=== PATIENT | male | born 1930 | race Caucasian/White ===

== ENCOUNTER 2017-05-10 10:53 | Inpatient (IN) | payer MEDICARE, OTHER ==
[2017-05-10] MEDS ORDERED: Sodium Chloride 0.9% 10 ML Syringe FLUSH PRN (11:10)
[2017-05-10] MEDS ORDERED: methylPREDNISolone Sodium Succinate 125 MG/2 ML SDV IVPUSH ONE (11:11)
[2017-05-10] MEDS ORDERED: Albuterol/Ipratropium 3.0-0.5 MG/3 ML Neb Soln NEB ONE (11:11)
[2017-05-10] MEDS ORDERED: Levofloxacin/Dextrose 5%-Water 750 MG in Premix Bag 1 BAG IV ONE (13:01)
--- NOTE | 2017-05-10 13:02 | EDM.PDOC ---
ED HPI GENERAL MEDICAL PROBLEM - General Chief Complaint: Respiratory Problem Stated Complaint: COUGH/LOW OXYGEN Time Seen by Provider: 05/10/17 11:03 Source of Information: Reports: Patient, Family History Limitations: Reports: No Limitations - History of Present Illness INITIAL COMMENTS - FREE TEXT/NARRATIVE: The patient presents with a productive cough and shortness of breath. This has been going on for about 1 week. He has a history of pneumonia with abscess in the left lung over 1 year ago. He sees a mechanical engineer after that. He had a chest CT last week and his mechanical engineer said it looks better then a week ago. He denies a fever but he has a productive cough. He has shortness of breath and when we brought him back his oxygen saturations were 68% on room air. He has COPD and CHF. There has not been any changes to his medications after seeing his mechanical engineer. He wears oxygen 2L by [place] at night. He denies chest pain. He has no abdominal pain, nausea and vomiting. Onset: Gradual Duration: Week(s): (1) Severity: Moderate Improves with: Reports: None Worsens with: Reports: None Associated Symptoms: Reports: Cough, Shortness of Breath. Denies: Chest Pain, Fever/Chills, Nausea/Vomiting - Related Data Allergies Allergy/AdvReac Type Severity Reaction Status Date / Time hydromorphone [From Dilaudid] Allergy Rash Verified 05/10/17 16:45 Penicillins Allergy Rash Verified 05/10/17 16:45 IV dye Allergy Hives Uncoded 05/10/17 11:23 Home Meds: Home Meds Aspirin [Children's Aspirin] 81 mg PO DAILY 04/28/14 [History] Losartan [Cozaar] 25 mg PO DAILY 04/28/14 [History] Metoprolol Succinate [Toprol XL] 50 mg PO DAILY 04/28/14 [History] Multivitamin [Multi Vitamin Daily] 1 tab PO DAILY 04/28/14 [History] [place]-3 Fatty Acids [[place]-3] 1,000 mg PO DAILY 04/28/14 [History] Simvastatin [Zocor] 40 mg PO BEDTIME 04/28/14 [History] SitaGLIPtin [Januvia] 100 mg PO DAILY 04/28/14 [History] metFORMIN HCl [Fortamet] 1,000 mg PO BID 11/10/14 [History] Acetaminophen [Tylenol] 500 mg PO DAILY PRN 06/10/14 [History] Albuterol [Proventil Neb Soln] 2.5 mg NEB ASDIRECTED PRN 05/10/17 [History] Brimonidine [Alphagan P 0.15% Ophth Soln] 1 drop EYEBOTH BID 05/10/17 [History] Carboxymethylcellulos/Glycerin [Eq Lubricating Eye Drops] 1 drop EYEBOTH BID [History] Fluticasone/Salmeterol [Advair 250-50 Diskus] 1 puff INH BID 05/10/17 [History] Nitroglycerin [Nitrostat] 0.4 mg SL Q5M PRN 05/10/17 [History] Tiotropium [Spiriva Handihaler] 1 cap INH DAILY 05/10/17 [History] glipiZIDE [Glucotrol] 10 mg PO DAILY 05/10/17 [History] Past Medical History Cardiovascular History: Reports: CAD, Heart Failure, High Cholesterol, Hypertension, SOB on Exertion, Stents, Other (See Below) Other Cardiovascular History: cardiomegaly Respiratory History: Reports: Bronchitis, Recurrent, COPD, Pneumonia, Recurrent , SOB Endocrine/Metabolic History: Reports: Diabetes, Type II - Past Surgical History Cardiovascular Surgical History: Reports: Coronary Artery Bypass Social & Family History - Tobacco Use Smoking Status *Q: Current Every Day Smoker Years of Tobacco use: 65 Packs/Tins Daily: 0.1 - Alcohol Use Days Per Week of Alcohol Use: 0 - Recreational Drug Use Recreational Drug Use: No ED ROS GENERAL - Review of Systems Review Of Systems: See Below Constitutional: Reports: No Symptoms HEENT: Reports: No Symptoms Respiratory: Reports: Shortness of Breath, Cough Cardiovascular: Reports: No Symptoms Endocrine: Reports: No Symptoms GI/Abdominal: Reports: No Symptoms : Reports: No Symptoms Musculoskeletal: Reports: No Symptoms ED EXAM, GENERAL - Physical Exam Exam: See Below Exam Limited By: No Limitations General Appearance: Alert, No Apparent Distress Ears: Normal External Exam Nose: Normal Inspection Head: Atraumatic, Normocephalic Neck: Normal Inspection Respiratory/Chest: No Respiratory Distress, Decreased Breath Sounds, Rhonchi ( Left lower lung), Wheezing Cardiovascular: Regular Rate, Rhythm, No Edema, No Murmur GI/Abdominal: Soft, Non-Tender, No Organomegaly, No Mass Back Exam: Normal Inspection Extremities: Normal Inspection Course - Vital Signs Last Recorded V/S: Last Vital Signs Temp 98.1 F 05/10/17 15:24 Pulse 95 05/10/17 15:24 Resp 24 H 05/10/17 15:24 BP 117/62 05/10/17 15:24 Pulse Ox 92 L 05/10/17 15:24 - Orders/Labs/Meds Orders: Active Orders 24 hr Category Date Time Status RT Aerosol Therapy [RC] ASDIRECTED Care 05/10/17 11:11 Active Chest 1V Frontal [CR] Stat Exams 05/10/17 11:10 Taken CULTURE BLOOD [BC] Stat Lab 05/10/17 11:44 Received CULTURE BLOOD [BC] Stat Lab 05/10/17 11:55 Received Sodium Chloride 0.9% [Saline Flush] Med 05/10/17 11:10 Active 10 ml FLUSH ASDIRECTED PRN Blood Culture x2 Reflex Set [OM.PC] Stat Oth 05/10/17 11:11 Ordered Peripheral IV Insertion Adult [OM.PC] Stat Oth 05/10/17 11:10 Ordered Medication Orders Albuterol (Proventil Neb Soln) 2.5 mg NEB Q4H PRN PRN Reason: Shortness of Breath Albuterol/Ipratropium (Duoneb 3.0-0.5 Mg/3 Ml) 3 ml NEB QID PRN PRN Reason: Shortness of Breath Artificial Tears (Isopto Tears 0.5% Ophth Soln) 0 ml EYEBOTH BID MARGOT Aspirin (Aspirin) 81 mg PO DAILY [facility]ARGOT Dextrose/Water (Dextrose 50% In Water) 50 ml IVPUSH ASDIRECTED PRN PRN Reason: Hypoglycemia Fish Oil (Fish Oil) 1 gm PO DAILY MARGOT Levofloxacin/Dextrose 750 mg/ (Premix) 150 mls @ 100 mls/hr IV Q48H [facility]ARGOT Sodium Chloride (Sodium Chloride 0.45%) 1,000 mls @ 75 mls/hr IV ASDIRECTED MARGOT Insulin Aspart (Novolog) 0 unit SUBCUT QIDACANDBED MARGOT PRN Reason: Protocol Insulin Aspart (Novolog) 0 unit SUBCUT QIDACANDBED MARGOT PRN Reason: Protocol Methylprednisolone Sodium Succinate (Solu-Medrol) 125 mg IVPUSH Q6H [facility]ARGOT Metoprolol Succinate (Toprol Xl) 50 mg PO DAILY [facility] Mometasone Furoate/Formoterol Fumar (Dulera 200-5 Mcg) 2 puff IH BID [facility] Multivitamins (Thera) 1 each PO DAILY [facility] Nicotine (Habitrol) 21 mg TRDERM DAILY [facility] Nitroglycerin (Nitrostat) 0.4 mg SL Q5M PRN PRN Reason: Chest Pain Non-Formulary Medication (Brimonidine) 1 drop EYEBOTH BID [facility] Simvastatin (Zocor) 40 mg PO BEDTIME [facility] Sodium Chloride (Saline Flush) 10 ml FLUSH ASDIRECTED PRN PRN Reason: Keep Vein Open Last Admin: 05/10/17 11:35 Dose: 10 ml Tiotropium [place] (Spiriva Handihaler) 18 mcg INH DAILY [facility] Labs: Laboratory Tests 05/10/17 05/10/17 Range/Units 11:05 11:05 WBC 13.08 H (4.23-9.07) K/mm3 RBC 4.05 L (4.63-6.08) M/mm3 Hgb 12.7 L (13.7-17.5) gm/L Hct 39.6 L (40.1-51.0) % MCV 97.8 H (79.0-92.2) fl MCH 31.4 (25.7-32.2) pg MCHC 32.1 L (32.2-35.5) g/dl RDW Std Deviation 50.9 H (35.1-43.9) fL Plt Count 237 (163-337) K/mm3 MPV 10.6 (9.4-12.3) fl Neut % (Auto) 73.7 H (34.0-67.9) % Lymph % (Auto) 13.4 L (21.8-53.1) % [place] % (Auto) 12.2 (5.3-12.2) % Eos % (Auto) 0.2 L (0.8-7.0) Baso % (Auto) 0.3 (0.1-1.2) % Neut # (Auto) 9.63 H (1.78-5.38) K/mm3 Lymph # (Auto) 1.75 (1.32-3.57) K/mm3 [place] # (Auto) 1.60 H (0.30-0.82) K/mm3 Eos # (Auto) 0.03 L (0.04-0.54) K/mm3 Baso # (Auto) 0.04 (0.01-0.08) K/mm3 Manual Slide Review Normal smear Sodium 137 (136-145) mEq/L Potassium 4.2 (3.5-5.1) mEq/L Chloride 99 (98-107) mEq/L Carbon Dioxide 27 (21-32) mEq/L Anion Gap 15.2 H (5-15) BUN 20 H (7-18) mg/dL Creatinine 1.4 H (0.7-1.3) mg/dL Est Cr Clr Drug Dosing 37.32 mL/min Estimated GFR (MDRD) 48 (>60) mL/min BUN/Creatinine Ratio 14.3 (14-18) Glucose 236 H (83-115) mg/dL Calcium 9.4 (8.5-10.1) mg/dL Total Bilirubin 0.6 (0.2-1.0) mg/dL AST 37 (15-37) U/L ALT 49 (16-63) U/L Alkaline Phosphatase 325 H (46-116) U/L Troponin I < 0.017 (0.00-0.056) ng/mL NT-Pro-B Natriuret Pep Cancelled Total Protein 7.7 (6.4-8.2) g/dl Albumin 2.6 L (3.4-5.0) g/dl Globulin 5.1 gm/dL Albumin/Globulin Ratio 0.5 L (1-2) Meds: Medications Generic Name Dose Route Start Last Admin Trade Name Freq PRN Reason Stop Dose Admin Albuterol 2.5 mg 05/10/17 16:06 Proventil Neb Soln NEB Q4H PRN Shortness of Breath Albuterol/Ipratropium 3 ml 05/10/17 16:05 Duoneb 3.0-0.5 Mg/3 Ml NEB QID PRN Shortness of Breath Artificial Tears 0 ml 05/10/17 21:00 Isopto Tears 0.5% Ophth Soln EYEBOTH BID MARGOT Aspirin 81 mg 05/11/17 09:00 Aspirin PO DAILY [facility] Dextrose/Water 50 ml 05/10/17 16:17 Dextrose 50% In Water IVPUSH ASDIRECTED PRN Hypoglycemia Fish Oil 1 gm 05/11/17 09:00 Fish Oil PO DAILY [facility] Levofloxacin/Dextrose 750 mg/ 150 mls @ 100 mls/hr 05/12/17 09:00 Premix IV Q48H [facility] Sodium Chloride 1,000 mls @ 75 mls/hr 05/10/17 16:15 Sodium Chloride 0.45% IV ASDIRECTED [facility] Insulin Aspart 0 unit 05/10/17 17:00 Novolog SUBCUT QIDACANDBED [facility] Protocol Insulin Aspart 0 unit 05/10/17 17:05 Novolog SUBCUT QIDACANDBED [facility] Protocol Methylprednisolone Sodium Succinate 125 mg 05/10/17 19:00 Solu-Medrol IVPUSH Q6H [facility] Metoprolol Succinate 50 mg 05/11/17 09:00 Toprol Xl PO DAILY [facility] Mometasone Furoate/Formoterol Fumar 2 puff 05/10/17 21:00 Dulera 200-5 Mcg IH BID [facility] Multivitamins 1 each 05/11/17 09:00 Thera PO DAILY [facility] Nicotine 21 mg 05/10/17 16:15 Habitrol TRDERM DAILY [facility] Nitroglycerin 0.4 mg 05/10/17 15:46 Nitrostat SL Q5M PRN Chest Pain Non-Formulary Medication 1 drop 05/10/17 21:00 Brimonidine EYEBOTH BID [facility] Simvastatin 40 mg 05/10/17 21:00 Zocor PO BEDTIME [facility] Sodium Chloride 10 ml 05/10/17 11:10 05/10/17 11:35 Saline Flush FLUSH 10 ml ASDIRECTED PRN Administration Keep Vein Open Tiotropium [place] 18 mcg 05/11/17 09:00 Spiriva Handihaler INH DAILY [facility] Discontinued Medications Generic Name Dose Route Start Last Admin Trade Name Freq PRN Reason Stop Dose Admin Albuterol/Ipratropium 3 ml 05/10/17 11:11 05/10/17 11:25 Duoneb 3.0-0.5 Mg/3 Ml NEB 05/10/17 11:12 3 ml ONETIME ONE Administration Levofloxacin/Dextrose 750 mg/ 150 mls @ 100 mls/hr 05/10/17 13:01 05/10/17 13 :12 Premix IV 05/10/17 14:30 100 mls/hr ONETIME ONE Administration Methylprednisolone Sodium Succinate 125 mg 05/10/17 11:11 05/10/17 11:33 Solu-Medrol IVPUSH 05/10/17 11:12 125 mg ONETIME ONE Administration Mometasone Furoate/Formoterol Fumar 2 puff 05/10/17 21:00 Dulera 200-5 Mcg IH BIDRT [facility]ARGOT Tiotropium [place] 18 mcg 05/11/17 08:00 Spiriva Handihaler INH DAILYRT [facility] - Re-Assessments/Exams Free Text/Narrative Re-Assessment/Exam: 05/10/17 17:15 I ordered an IV saline lock, oxygen, labs, CXR, EKG, blood cultures, duoneb, and solu-medrol 125mg IV. His WBC was elevated at 13.08. His Hgb was a little low at 12.7. His creatinine was elevated at 1.4. His Alk phos was elevated at 325. His troponin was negative. His CXR shows an infiltrate in the left lower lobe. His EKG shows a sinus tachycardia with no acute changes. I ordered levaquin and blood cultures. I feel he needs to be admitted. I called Dr Wu and she agreed to the admission. Departure - Departure Time of Disposition: 17:20 Disposition: Admitted As Inpatient 67 Condition: Serious Clinical Impression: Hypoxia Pneumonia Qualifiers: Pneumonia type: due to unspecified organism Laterality: left Lung location: lower lobe of lung Qualified Code(s): J18.1 - Lobar pneumonia, unspecified organism - Discharge Information - My Orders Last 24 Hours: My Active Orders 05/10/17 11:10 Chest 1V Frontal [CR] Stat Sodium Chloride 0.9% [Saline Flush] 10 ml FLUSH ASDIRECTED PRN Peripheral IV Insertion Adult [OM.PC] Stat 05/10/17 11:11 RT Aerosol Therapy [RC] ASDIRECTED Blood Culture x2 Reflex Set [OM.PC] Stat 05/10/17 11:44 CULTURE BLOOD [BC] Stat 05/10/17 11:55 CULTURE BLOOD [BC] Stat - Assessment/Plan Last 24 Hours: My Active Orders 05/10/17 11:10 Chest 1V Frontal [CR] Stat Sodium Chloride 0.9% [Saline Flush] 10 ml FLUSH ASDIRECTED PRN Peripheral IV Insertion Adult [OM.PC] Stat 05/10/17 11:11 RT Aerosol Therapy [RC] ASDIRECTED Blood Culture x2 Reflex Set [OM.PC] Stat 05/10/17 11:44 CULTURE BLOOD [BC] Stat 05/10/17 11:55 CULTURE BLOOD [BC] Stat
--- NOTE | 2017-05-10 15:42 | PCM.HP ---
H&P History of Present Illness - General Date of Service: 05/10/17 Admit Problem/Dx: Admission Diagnosis/Problem Admission Diagnosis/Problem Pneumonia Source of Information: Patient, Family, Provider History Limitations: Reports: No Limitations - History of Present Illness Initial Comments - Free Text/Narative: 86 year old male with history of tobacco dependence/COPD has had a productive cough associated with increasing SOB . He has a history of pneumonia complicated by a lung abscess one year [employer]IC[employer]. Documented O2 saturation was 68% in the ED, the oxygen required [employer] only at night. Having recently seen his business development recruiter, no adjustment of meds were required. A CT of the thorax was performed recently ordered by his PCP. This was reviewed at his most recent visit with his business development recruiter. Radiographic studies document a LLE infiltrate. He will be admitted to [facility]. Onset of Symptoms: Reports: Gradual Symptom Onset Date: 05/04/17 Duration of Symptoms: Reports: Week(s):, Getting Worse Location: Reports: Chest Severity: Moderate Improves with: Reports: Medication Worsens with: Reports: None Context: Reports: Sick Contact (unknown) Associated Symptoms: Reports: cough w sputum, Shortness of Breath, Weakness - Related Data Allergies/Adverse Reactions: Allergies Allergy/AdvReac Type Severity Reaction Status Date / Time hydromorphone [From Dilaudid] Allergy Rash Verified 05/10/17 16:45 Penicillins Allergy Rash Verified 05/10/17 16:45 IV dye Allergy Hives Uncoded 05/10/17 11:23 Home Medications: Home Meds Aspirin [Children's Aspirin] 81 mg PO DAILY 04/28/14 [History] Losartan [Cozaar] 25 mg PO DAILY 04/28/14 [History] Metoprolol Succinate [Toprol XL] 50 mg PO DAILY 04/28/14 [History] Multivitamin [Multi Vitamin Daily] 1 tab PO DAILY 04/28/14 [History] [place]-3 Fatty Acids [[place]-3] 1,000 mg PO DAILY 04/28/14 [History] Simvastatin [Zocor] 40 mg PO BEDTIME 04/28/14 [History] SitaGLIPtin [Januvia] 100 mg PO DAILY 04/28/14 [History] metFORMIN HCl [Fortamet] 1,000 mg PO BID 04/28/14 [History] Acetaminophen [Tylenol] 500 mg PO DAILY PRN 06/10/14 [History] Acetaminophen [Tylenol Extra Strength] 500 mg PO Q4HR PRN 05/10/17 [History] Albuterol [IJD: Albuterol HFA] 2 puff INH ASDIRECTED PRN 05/10/17 [History] Albuterol [Proventil Neb Soln] 2.5 mg NEB ASDIRECTED PRN 05/10/17 [History] Brimonidine [Alphagan P 0.15% Ophth Soln] 1 drop EYEBOTH BID 05/10/17 [History] Carboxymethylcellulos/Glycerin [Eq Lubricating Eye Drops] 1 drop EYEBOTH BID [History] Fluticasone/Salmeterol [Advair 250-50 Diskus] 1 puff INH BID 05/10/17 [History] Nitroglycerin [Nitrostat] 0.4 mg SL Q5M PRN 05/10/17 [History] Tiotropium [Spiriva Handihaler] 1 cap INH DAILY 05/10/17 [History] glipiZIDE [Glucotrol] 10 mg PO DAILY 05/10/17 [History] Past Medical History Cardiovascular History: Reports: CAD, Heart Failure, High Cholesterol, Hypertension, SOB on Exertion, Stents, Other (See Below) Other Cardiovascular History: cardiomegaly Respiratory History: Reports: Bronchitis, Recurrent, COPD, Pneumonia, Recurrent , SOB Endocrine/Metabolic History: Reports: Diabetes, Type II - Past Surgical History Cardiovascular Surgical History: Reports: Coronary Artery Bypass Social & Family History - Tobacco Use Smoking Status *Q: Current Every Day Smoker Years of Tobacco use: 65 Packs/Tins Daily: 0.1 - Alcohol Use Days Per Week of Alcohol Use: 0 - Recreational Drug Use Recreational Drug Use: No H&P Review of Systems - Review of Systems: Review Of Systems: See Below General: Reports: Malaise, Weakness, Fatigue HEENT: Reports: No Symptoms Pulmonary: Reports: Shortness of Breath, Cough, Sputum Cardiovascular: Reports: No Symptoms Gastrointestinal: Reports: No Symptoms Genitourinary: Reports: No Symptoms Musculoskeletal: Reports: No Symptoms Skin: Reports: No Symptoms Psychiatric: Reports: No Symptoms Neurological: Reports: No Symptoms Hematologic/Lymphatic: Reports: No Symptoms Immunologic: Reports: No Symptoms Exam - Exam Exam: See Below - Vital Signs Vital Signs: Last Vital Signs Temp 36.3 C 05/10/17 11:01 Pulse 99 05/10/17 14:14 Resp 26 H 05/10/17 13:16 BP 119/65 05/10/17 14:14 Pulse Ox 93 L 05/10/17 13:16 Weight: 80.286 kg - Exam Quality Assessment: Supplemental Oxygen, DVT Prophylaxis General: Alert, Oriented, Cooperative HEENT: Conjunctiva Clear, Nares Patent, Normal Nasal Septum, Pupils Equal, Pupils Reactive, PERRLA Lungs: Decreased Breath Sounds, Rhonchi, Wheezing Cardiovascular: Regular Rate, Regular Rhythm GI/Abdominal Exam: Normal Bowel Sounds, Soft, Non-Tender, No Organomegaly, No Distention (Male) Exam: Deferred Rectal (Males) Exam: Deferred Back Exam: Normal Inspection Extremities: Normal Inspection, Pedal Edema Skin: Warm Neurological: Cranial Nerves Intact Neuro Extensive - Mental Status: Alert, Oriented x3, Normal Mood/Affect, Normal Cognition, Memory Intact Neuro Extensive - Motor, Sensory, Reflexes: CN II-XII Intact Psychiatric: Alert, Normal Affect, Normal Mood - Patient Data Result Diagrams: 05/11/17 05:45 05/11/17 05:45 *Q Meaningful Use (ADM) - VTE *Q VTE Criteria *Q: - Stroke *Q Stroke Criteria *Q: - AMI *Q AMI Criteria *Q: - Problem List (1) CAD (coronary artery disease) SNOMED Code(s): 26700873 ICD Code: I25.10 - ATHSCL HEART DISEASE OF [place] CORONARY ARTERY W/O ANG PCTRS Status: Acute Current Visit: Yes (2) Diabetes mellitus SNOMED Code(s): 98860018 ICD Code: E11.9 - TYPE 2 DIABETES MELLITUS WITHOUT COMPLICATIONS Status: Acute Current Visit: Yes (3) Hypoxia SNOMED Code(s): 383909272 ICD Code: R09.02 - HYPOXEMIA Status: Acute Current Visit: Yes (4) Pneumonia SNOMED Code(s): 306523141 ICD Code: J18.9 - PNEUMONIA, UNSPECIFIED ORGANISM Status: Acute Current Visit: Yes Qualifiers: Pneumonia type: due to unspecified organism Laterality: left Lung location: lower lobe of lung Qualified Code(s): J18.1 - Lobar pneumonia, unspecified organism (5) CHF, Congestive heart failure SNOMED Code(s): 98115097 ICD Code: I50.9 - HEART FAILURE, UNSPECIFIED Status: Acute Current Visit : No (6) COLD, Chronic obstructive lung disease SNOMED Code(s): 51665053 ICD Code: J44.9 - CHRONIC OBSTRUCTIVE PULMONARY DISEASE, UNSPECIFIED Status : Acute Current Visit: No (7) Hypertension SNOMED Code(s): 51313535 ICD Code: I10 - ESSENTIAL (PRIMARY) HYPERTENSION Status: Acute Current Visit: Yes (8) Hyperlipidemia SNOMED Code(s): 61988219 ICD Code: E78.5 - HYPERLIPIDEMIA, UNSPECIFIED Status: Acute Current Visit : Yes Problem List Initiated/Reviewed/Updated: Yes Orders Last 24hrs: Medication Orders Sodium Chloride (Saline Flush) 10 ml FLUSH ASDIRECTED PRN PRN Reason: Keep Vein Open Last Admin: 05/10/17 11:35 Dose: 10 ml Assessment/Plan Comment:: Impression: LLE PNA, unspecified Hypoxia, history of COPD 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
[2017-05-10] MEDS ORDERED: Nitroglycerin 0.4 MG Tab.SL SL PRN (15:46)
[2017-05-10] MEDS ORDERED: Albuterol 0.083% 2.5 MG/3 ML Neb Soln NEB PRN (16:06)
[2017-05-10] MEDS ORDERED: Sodium Chloride 0.45% 1,000 ML IV SCH (16:15)
[2017-05-10] MEDS ORDERED: 50% Dextrose in Water 50 ML Syringe IVPUSH PRN (16:17)
[2017-05-10] MEDS ORDERED: Insulin Aspart 100 Units/ML 3 ML Pen SUBCUT SCH (17:00)
[2017-05-10] MEDS: Nicotine 21 MG/24 Hr Patch TRDERM SCH (17:28)
[2017-05-10] MEDS: Insulin Aspart 100 Units/ML 3 ML Pen SUBCUT SCH ×2 (18:02→21:23)
[2017-05-10] MEDS: methylPREDNISolone Sodium Succinate 125 MG/2 ML SDV IVPUSH SCH (18:03)
[2017-05-10] MEDS: Formoterol/Mometasone 200-5 MCG 8.8 GM Inhaler IH SCH (20:23)
[2017-05-10] MEDS ORDERED: Formoterol/Mometasone 200-5 MCG 8.8 GM Inhaler IH SCH (21:00)
[2017-05-10] MEDS: Simvastatin 40 MG Tab PO SCH (21:22)
[2017-05-10] MEDS: Hypromellose 0.5% Ophth Soln 15 ML Bottle EYEBOTH SCH (21:23)
[2017-05-11] MEDS: methylPREDNISolone Sodium Succinate 125 MG/2 ML SDV IVPUSH SCH ×4 (02:01→19:44)
[2017-05-11] MEDS: Albuterol/Ipratropium 3.0-0.5 MG/3 ML Neb Soln NEB PRN ×4 (02:09→21:17)
[2017-05-11] MEDS ORDERED: Tiotropium Inhaler 18 MCG Inhalation Powder Cap Kit of 5 INH SCH (08:00)
[2017-05-11] MEDS ORDERED: Metoprolol Succinate 25 MG Tab.ER PO SCH (09:00)
[2017-05-11] MEDS: Formoterol/Mometasone 200-5 MCG 8.8 GM Inhaler IH SCH ×2 (09:13→21:16)
[2017-05-11] MEDS: Insulin Aspart 100 Units/ML 3 ML Pen SUBCUT SCH ×4 (09:31→20:14)
[2017-05-11] MEDS: Aspirin 81 MG Tab.Chew PO SCH (10:25)
[2017-05-11] MEDS: Fish Oil/Omega-3 Fatty Acids 1 Gm Cap PO SCH (10:26)
[2017-05-11] MEDS: Nicotine 21 MG/24 Hr Patch TRDERM SCH (10:26)
[2017-05-11] MEDS: Multivitamins,Therapeutic Tab PO SCH (10:29)
[2017-05-11] MEDS: Hypromellose 0.5% Ophth Soln 15 ML Bottle EYEBOTH SCH ×2 (10:41→22:01)
[2017-05-11] MEDS ORDERED: Magnesium Sulfate/Water 4 GM in Premix Bag 1 BAG IV ONE ×2 (10:53→13:15)
[2017-05-11] MEDS ORDERED: Furosemide 20 MG/2 ML VIAL IVPUSH ONE (11:08)
[2017-05-11] MEDS ORDERED: Potassium Chloride 10% 20 MEQ/15 ML Soln 30 ML UD Cup PO ONE (11:09)
[2017-05-11] MEDS: Tiotropium Inhaler 18 MCG Inhalation Powder Cap Kit of 5 INH SCH (11:33)
[2017-05-11] MEDS ORDERED: Magnesium Sulfate/Water 100 ML ONE (13:13)
[2017-05-11] MEDS: Magnesium Sulfate/Water 2 GM in Premix Bag 1 BAG IV SCH ×2 (13:54→14:58)
--- NOTE | 2017-05-11 17:01 | PCM.PN ---
- General Info Date of Service: 05/11/17 Functional Status: Reports: Tolerating Diet, Ambulating, Urinating - Review of Systems General: Reports: Weakness HEENT: Reports: No Symptoms Pulmonary: Reports: Shortness of Breath Cardiovascular: Reports: No Symptoms Gastrointestinal: Reports: No Symptoms Genitourinary: Reports: No Symptoms Musculoskeletal: Reports: No Symptoms Skin: Reports: No Symptoms Neurological: Reports: No Symptoms Psychiatric: Reports: No Symptoms - Patient Data Vitals - Most Recent: Last Vital Signs Temp 36.4 C 05/11/17 15:02 Pulse 87 05/11/17 15:02 Resp 20 05/11/17 15:02 BP 107/55 L 05/11/17 15:02 Pulse Ox 92 L 05/11/17 15:02 Weight - Most Recent: 80.286 kg I&O - Last 24 Hours: Intake & Output 05/11/17 05/11/17 05/11/17 06:59 14:59 22:59 Intake Total 300 300 Output Total 1500 Balance -1200 300 Lab Results Last 24 Hours: Laboratory Results - last 24 hr 05/10/17 05/10/17 05/10/17 Range/Units 16:17 17:07 18:45 WBC (4.23-9.07) K/mm3 RBC (4.63-6.08) M/mm3 Hgb (13.7-17.5) gm/L Hct (40.1-51.0) % MCV (79.0-92.2) fl MCH (25.7-32.2) pg MCHC (32.2-35.5) g/dl RDW Std Deviation (35.1-43.9) fL Plt Count (163-337) K/mm3 MPV (9.4-12.3) fl Neut % (Auto) (34.0-67.9) % Lymph % (Auto) (21.8-53.1) % [place] % (Auto) (5.3-12.2) % Eos % (Auto) (0.8-7.0) Baso % (Auto) (0.1-1.2) % Neut # (Auto) (1.78-5.38) K/mm3 Lymph # (Auto) (1.32-3.57) K/mm3 [place] # (Auto) (0.30-0.82) K/mm3 Eos # (Auto) (0.04-0.54) K/mm3 Baso # (Auto) (0.01-0.08) K/mm3 Manual Slide Review Sodium (136-145) mEq/L Potassium (3.5-5.1) mEq/L Chloride (98-107) mEq/L Carbon Dioxide (21-32) mEq/L Anion Gap (5-15) BUN (7-18) mg/dL Creatinine (0.7-1.3) mg/dL Est Cr Clr Drug Dosing mL/min Estimated GFR (MDRD) (>60) mL/min BUN/Creatinine Ratio (14-18) Glucose 433 H (83-115) mg/dL POC Glucose (83-110) mg/dL Calcium (8.5-10.1) mg/dL Magnesium (1.8-2.4) mg/dl Troponin I (0.00-0.056) ng/mL C-Reactive Protein (<1.0) mg/dL Triglycerides (<150) mg/dL Cholesterol (<200) mg/dL LDL Cholesterol Direct (<100) mg/dL HDL Cholesterol (40-59) mg/dL Urine Color Yellow (Yellow) Urine Appearance Clear (Clear) Urine pH 6.0 (5.0-8.0) Ur Specific [place] 1.020 (1.005-1.030) Urine Protein Trace H (Negative) Urine Glucose (UA) 2+ H (Negative) Urine Ketones Negative (Negative) Urine Occult Blood Negative (Negative) Urine Nitrite Negative (Negative) Urine Bilirubin Negative (Negative) Urine Urobilinogen 2.0 H (0.2-1.0) Ur Leukocyte Esterase Negative (Negative) Urine RBC 0-5 (0-5) /hpf Urine WBC 0-5 (0-5) /hpf Ur Epithelial Cells 0-5 (0-5) /hpf Urine Bacteria Rare (FEW) /hpf Urine Mucus Not seen (FEW) /hpf Mycoplasma pneumon IgM (NEGATIVE) MRSA (PCR) Negative 05/10/17 05/11/17 05/11/17 Range/Units 20:44 05:45 05:45 WBC 9.34 H (4.23-9.07) K/mm3 RBC 3.43 L (4.63-6.08) M/mm3 Hgb 10.6 L (13.7-17.5) gm/L Hct 33.1 L (40.1-51.0) % MCV 96.5 H (79.0-92.2) fl MCH 30.9 (25.7-32.2) pg MCHC 32.0 L (32.2-35.5) g/dl RDW Std Deviation 47.7 H (35.1-43.9) fL Plt Count 188 (163-337) K/mm3 MPV 10.6 (9.4-12.3) fl Neut % (Auto) 91.3 H (34.0-67.9) % Lymph % (Auto) 5.5 L (21.8-53.1) % [place] % (Auto) 2.9 L (5.3-12.2) % Eos % (Auto) 0 L (0.8-7.0) Baso % (Auto) 0.0 L (0.1-1.2) % Neut # (Auto) 8.53 H (1.78-5.38) K/mm3 Lymph # (Auto) 0.51 L (1.32-3.57) K/mm3 [place] # (Auto) 0.27 L (0.30-0.82) K/mm3 Eos # (Auto) 0.00 L (0.04-0.54) K/mm3 Baso # (Auto) 0.00 L (0.01-0.08) K/mm3 Manual Slide Review Abnormal smear Sodium 137 (136-145) mEq/L Potassium 3.9 (3.5-5.1) mEq/L Chloride 101 (98-107) mEq/L Carbon Dioxide 26 (21-32) mEq/L Anion Gap 13.9 (5-15) BUN 22 H (7-18) mg/dL Creatinine 1.1 (0.7-1.3) mg/dL Est Cr Clr Drug Dosing 50.69 mL/min Estimated GFR (MDRD) > 60 (>60) mL/min BUN/Creatinine Ratio 20.0 H (14-18) Glucose 405 H 330 H (83-115) mg/dL POC Glucose (83-110) mg/dL Calcium 8.8 (8.5-10.1) mg/dL Magnesium 1.5 L (1.8-2.4) mg/dl Troponin I < 0.017 (0.00-0.056) ng/mL C-Reactive Protein 26.5 H* (<1.0) mg/dL Triglycerides 53 (<150) mg/dL Cholesterol 104 (<200) mg/dL LDL Cholesterol Direct 45 (<100) mg/dL HDL Cholesterol 53.0 (40-59) mg/dL Urine Color (Yellow) Urine Appearance (Clear) Urine pH (5.0-8.0) Ur Specific [place] (1.005-1.030) Urine Protein (Negative) Urine Glucose (UA) (Negative) Urine Ketones (Negative) Urine Occult Blood (Negative) Urine Nitrite (Negative) Urine Bilirubin (Negative) Urine Urobilinogen (0.2-1.0) Ur Leukocyte Esterase (Negative) Urine RBC (0-5) /hpf Urine WBC (0-5) /hpf Ur Epithelial Cells (0-5) /hpf Urine Bacteria (FEW) /hpf Urine Mucus (FEW) /hpf Mycoplasma pneumon IgM Negative (NEGATIVE) MRSA (PCR) 05/11/17 05/11/17 Range/Units 06:46 12:30 WBC (4.23-9.07) K/mm3 RBC (4.63-6.08) M/mm3 Hgb (13.7-17.5) gm/L Hct (40.1-51.0) % MCV (79.0-92.2) fl MCH (25.7-32.2) pg MCHC (32.2-35.5) g/dl RDW Std Deviation (35.1-43.9) fL Plt Count (163-337) K/mm3 MPV (9.4-12.3) fl Neut % (Auto) (34.0-67.9) % Lymph % (Auto) (21.8-53.1) % [place] % (Auto) (5.3-12.2) % Eos % (Auto) (0.8-7.0) Baso % (Auto) (0.1-1.2) % Neut # (Auto) (1.78-5.38) K/mm3 Lymph # (Auto) (1.32-3.57) K/mm3 [place] # (Auto) (0.30-0.82) K/mm3 Eos # (Auto) (0.04-0.54) K/mm3 Baso # (Auto) (0.01-0.08) K/mm3 Manual Slide Review Sodium (136-145) mEq/L Potassium (3.5-5.1) mEq/L Chloride (98-107) mEq/L Carbon Dioxide (21-32) mEq/L Anion Gap (5-15) BUN (7-18) mg/dL Creatinine (0.7-1.3) mg/dL Est Cr Clr Drug Dosing mL/min Estimated GFR (MDRD) (>60) mL/min BUN/Creatinine Ratio (14-18) Glucose 528 H (83-115) mg/dL POC Glucose 346 H (83-110) mg/dL Calcium (8.5-10.1) mg/dL Magnesium (1.8-2.4) mg/dl Troponin I (0.00-0.056) ng/mL C-Reactive Protein (<1.0) mg/dL Triglycerides (<150) mg/dL Cholesterol (<200) mg/dL LDL Cholesterol Direct (<100) mg/dL HDL Cholesterol (40-59) mg/dL Urine Color (Yellow) Urine Appearance (Clear) Urine pH (5.0-8.0) Ur Specific [place] (1.005-1.030) Urine Protein (Negative) Urine Glucose (UA) (Negative) Urine Ketones (Negative) Urine Occult Blood (Negative) Urine Nitrite (Negative) Urine Bilirubin (Negative) Urine Urobilinogen (0.2-1.0) Ur Leukocyte Esterase (Negative) Urine RBC (0-5) /hpf Urine WBC (0-5) /hpf Ur Epithelial Cells (0-5) /hpf Urine Bacteria (FEW) /hpf Urine Mucus (FEW) /hpf Mycoplasma pneumon IgM (NEGATIVE) MRSA (PCR) Carlos Results Last 24 Hours: Microbiology 05/10/17 16:30 Gram Stain - Final Sputum - Expectorated Sputum Culture - Preliminary NORMAL RESPIRATORY LUIS ALFREDO 1 DAY 05/10/17 16:30 Influenza Type A Antigen Screen - Final Nasal, Unspecified NEGATIVE INFLUENZA A VIRUS AG Influenza Type B Antigen Screen - Final NEGATIVE INFLUENZA B VIRUS AG Med Orders - Current: Current Medications Albuterol (Proventil Neb Soln) 2.5 mg NEB Q4H PRN PRN Reason: Shortness of Breath Last Admin: 05/10/17 23:15 Dose: 2.5 mg Albuterol/Ipratropium (Duoneb 3.0-0.5 Mg/3 Ml) 3 ml NEB QID PRN PRN Reason: Shortness of Breath Last Admin: 05/11/17 15:45 Dose: 3 ml Artificial Tears (Isopto Tears 0.5% Ophth Soln) 0 ml EYEBOTH BID [facility] Last Admin: 05/11/17 10:41 Dose: 1 drop Aspirin (Aspirin) 81 mg PO DAILY [facility] [place] Last Admin: 05/11/17 10:25 Dose: 81 mg Dextrose/Water (Dextrose 50% In Water) 50 ml IVPUSH ASDIRECTED PRN PRN Reason: Hypoglycemia Fish Oil (Fish Oil) 1 gm PO DAILY [facility] [place] Last Admin: 05/11/17 10:26 Dose: 1 gm Levofloxacin/Dextrose 750 mg/ (Premix) 150 mls @ 100 mls/hr IV Q48H [facility] [place] Insulin Aspart (Novolog) 0 unit SUBCUT QIDACANDBED [facility] PRN Reason: Protocol Last Admin: 05/11/17 12:47 Dose: 15 units Methylprednisolone Sodium Succinate (Solu-Medrol) 125 mg IVPUSH Q6H [facility] [place] Last Admin: 05/11/17 14:03 Dose: 125 mg Metoprolol Succinate (Toprol Xl) 50 mg PO DAILY [facility] [place] Mometasone Furoate/Formoterol Fumar (Dulera 200-5 Mcg) 2 puff IH BID [facility] [place] Last Admin: 05/11/17 09:13 Dose: 2 puff Multivitamins (Thera) 1 each PO DAILY [facility] [place] Last Admin: 05/11/17 10:29 Dose: 1 each Nicotine (Habitrol) 21 mg TRDERM DAILY [facility] [place] Last Admin: 05/11/17 10:26 Dose: 21 mg Nitroglycerin (Nitrostat) 0.4 mg SL Q5M PRN PRN Reason: Chest Pain Non-Formulary Medication (Brimonidine) 1 drop EYEBOTH BID [facility] [place] Simvastatin (Zocor) 40 mg PO BEDTIME [facility] [place] Last Admin: 05/10/17 21:22 Dose: 40 mg Sodium Chloride (Saline Flush) 10 ml FLUSH ASDIRECTED PRN PRN Reason: Keep Vein Open Last Admin: 05/10/17 11:35 Dose: 10 ml Tiotropium [place] (Spiriva Handihaler) 18 mcg INH DAILY [facility] [place] Last Admin: 05/11/17 11:33 Dose: 1 cap Discontinued Medications Albuterol/Ipratropium (Duoneb 3.0-0.5 Mg/3 Ml) 3 ml NEB ONETIME ONE Stop: 05/10/17 11:12 Last Admin: 05/10/17 11:25 Dose: 3 ml Furosemide (Lasix) 20 mg IVPUSH NOW ONE Stop: 05/11/17 11:09 Last Admin: 05/11/17 12:35 Dose: 20 mg Levofloxacin/Dextrose 750 mg/ (Premix) 150 mls @ 100 mls/hr IV ONETIME ONE Stop: 05/10/17 14:30 Last Admin: 05/10/17 13:12 Dose: 100 mls/hr Sodium Chloride (Sodium Chloride 0.45%) 1,000 mls @ 75 mls/hr IV ASDIRECTED [facility] [place] Last Admin: 05/11/17 06:08 Dose: 75 mls/hr Magnesium Sulfate 4 gm/ Premix 100 mls @ 50 mls/hr IV ONETIME ONE Stop: 05/11/17 12:52 Last Admin: 05/11/17 14:37 Dose: Not Given Magnesium Sulfate 4 gm/ Premix 100 mls @ 50 mls/hr IV ONETIME ONE Stop: 05/11/17 15:14 Last Admin: 05/11/17 14:52 Dose: Not Given Magnesium Sulfate (Magnesium Sulfate 4 Gm In Water 100 Ml) Confirm Administered Dose 100 mls @ as directed .ROUTE .STK-MED ONE Stop: 05/11/17 13:14 Last Admin: 05/11/17 13:51 Dose: Not Given Magnesium Sulfate 2 gm/ Premix 50 mls @ 50 mls/hr IV Q1H [facility]ARGOT Stop: 05/11/17 15:29 Last Admin: 05/11/17 14:58 Dose: 50 mls/hr Insulin Aspart (Novolog) 0 unit SUBCUT QIDACANDBED [facility] PRN Reason: Protocol Last Admin: 05/10/17 17:29 Dose: Not Given Insulin Aspart (Novolog) 0 unit SUBCUT QIDACANDBED [facility] [place] PRN Reason: Protocol Last Admin: 05/11/17 14:50 Dose: Not Given Methylprednisolone Sodium Succinate (Solu-Medrol) 125 mg IVPUSH ONETIME ONE Stop: 05/10/17 11:12 Last Admin: 05/10/17 11:33 Dose: 125 mg Metoprolol Succinate (Toprol Xl) 50 mg PO DAILY [facility] [place] Stop: 05/11/17 11:00 Last Admin: 05/11/17 10:29 Dose: 50 mg Mometasone Furoate/Formoterol Fumar (Dulera 200-5 Mcg) 2 puff IH BIDRT [facility] [place] Potassium Chloride (Potassium Chloride) 20 meq PO ONETIME ONE Stop: 05/11/17 11:10 Last Admin: 05/11/17 12:35 Dose: 20 meq Tiotropium [place] (Spiriva Handihaler) 18 mcg INH DAILYRT [facility] - Exam Quality Assessment: Supplemental Oxygen, DVT Prophylaxis General: Alert, Oriented, Cooperative, No Acute Distress HEENT: Pupils Equal, Pupils Reactive, EOMI Neck: Supple, Trachea Midline Lungs: Normal Respiratory Effort, Decreased Breath Sounds, Rhonchi Cardiovascular: Regular Rate, Regular Rhythm GI/Abdominal Exam: Normal Bowel Sounds, Soft, Non-Tender, No Organomegaly, No Distention (Male) Exam: Deferred Back Exam: Normal Inspection Extremities: Normal Inspection Skin: Warm Neurological: No New Focal Deficit Psy/Mental Status: Alert, Normal Affect - Problem List & Annotations (1) CAD (coronary artery disease) SNOMED Code(s): 37426535 Code(s): I25.10 - ATHSCL HEART DISEASE OF [place] CORONARY ARTERY W/O ANG PCTRS Status: Acute Current Visit: Yes (2) Diabetes mellitus SNOMED Code(s): 36255559 Code(s): E11.9 - TYPE 2 DIABETES MELLITUS WITHOUT COMPLICATIONS Status: Acute Current Visit: Yes (3) Hypoxia SNOMED Code(s): 210091917 Code(s): R09.02 - HYPOXEMIA Status: Acute Current Visit: Yes (4) Pneumonia SNOMED Code(s): 883936298 Code(s): J18.9 - PNEUMONIA, UNSPECIFIED ORGANISM Status: Acute Current Visit: Yes Qualifiers: Pneumonia type: due to unspecified organism Laterality: left Lung location: lower lobe of lung Qualified Code(s): J18.1 - Lobar pneumonia, unspecified organism (5) CHF, Congestive heart failure SNOMED Code(s): 36594568 Code(s): I50.9 - HEART FAILURE, UNSPECIFIED Status: Acute Current Visit: No (6) COLD, Chronic obstructive lung disease SNOMED Code(s): 27305362 Code(s): J44.9 - CHRONIC OBSTRUCTIVE PULMONARY DISEASE, UNSPECIFIED Status : Acute Current Visit: No (7) Hypertension SNOMED Code(s): 30007160 Code(s): I10 - ESSENTIAL (PRIMARY) HYPERTENSION Status: Acute Current Visit: Yes (8) Hyperlipidemia SNOMED Code(s): 39654705 Code(s): E78.5 - HYPERLIPIDEMIA, UNSPECIFIED Status: Acute Current Visit : Yes - Problem List Review Problem List Initiated/Reviewed/Updated: Yes - My Orders Last 24 Hours: My Active Orders 05/10/17 16:05 Albuterol/Ipratropium [DuoNeb 3.0-0.5 MG/3 ML] 3 ml NEB QID PRN 05/10/17 16:06 Albuterol [Proventil Neb Soln] 2.5 mg NEB Q4H PRN 05/10/17 16:10 Consult to Physical Therapy [PT Evaluation and Treatment] [CONS] Routine Consult to Tray Setter [CONS] Routine 05/10/17 16:11 Consult to Pulmonary Rehabilitation [CONS] Routine 05/10/17 16:12 Consult to Occupational Therapy [OT Evaluation and Treatment] [CONS] Routine 05/10/17 16:15 Nicotine [Habitrol] 21 mg TRDERM DAILY 05/10/17 16:17 Blood Glucose Check, Bedside [RC] QIDACANDBED Dextrose 50% in Water 50 ml IVPUSH ASDIRECTED PRN 05/10/17 16:30 CULTURE SPUTUM + SMEAR [RM] Routine RESPIRATORY PANEL BY PCR [MREF] Routine 05/10/17 16:44 Resuscitation Status Routine 05/10/17 18:45 STREP PNEUMONIAE ANTIGEN [MREF] Routine 05/10/17 18:52 Antiembolic Devices [RC] PER UNIT ROUTINE Antiembolic Hose [OM.PC] Routine 05/10/17 19:00 methylPREDNISolone Sod Succ [Solu-MEDROL] 125 mg IVPUSH Q6H 05/10/17 21:00 Brimonidine 1 drop EYEBOTH BID Hypromellose [Isopto Tears 0.5% Ophth Soln] 0 ml EYEBOTH BID Mometasone/Formoterol [Dulera 200-5 MCG] 2 puff IH BID Simvastatin [Zocor] 40 mg PO BEDTIME 05/10/17 23:32 Oxygen Therapy [RC] ASDIRECTED 05/10/17 Dinner ADA Diabetic [[place] [employer] Diet] [DIET] 05/11/17 09:00 Aspirin 81 mg PO DAILY Fish Oil/[place]-3 Fatty Acids [Fish Oil] 1 gm PO DAILY Multivitamins,Therapeutic [Thera] 1 each PO DAILY Tiotropium [Spiriva HandiHaler] 18 mcg INH DAILY 05/11/17 17:00 Insulin Aspart [NovoLOG] See Protocol SUBCUT QIDACANDBED 05/12/17 05:00 BMP [BASIC METABOLIC PANEL,BMP] [CHEM] DAILY CBC WITH AUTO DIFF [HEME] DAILY CRP [C-REACTIVE PROTEIN] [CHEM] DAILY MG [MAGNESIUM] [CHEM] DAILY 05/12/17 09:00 CXR [Chest 2V] [CR] Routine Levofloxacin/Dextrose 5%-Water [Levaquin in D5W 750 MG/150 ML] 750 mg Premix Bag 1 bag IV Q48H Metoprolol Succinate [Toprol XL] 50 mg PO DAILY 05/13/17 05:00 BMP [BASIC METABOLIC PANEL,BMP] [CHEM] DAILY CBC WITH AUTO DIFF [HEME] DAILY CRP [C-REACTIVE PROTEIN] [CHEM] DAILY MG [MAGNESIUM] [CHEM] DAILY 05/14/17 05:00 BMP [BASIC METABOLIC PANEL,BMP] [CHEM] DAILY CBC WITH AUTO DIFF [HEME] DAILY CRP [C-REACTIVE PROTEIN] [CHEM] DAILY MG [MAGNESIUM] [CHEM] DAILY - Plan Plan:: Impression: LLE PNA, unspecified Hypoxia, history of COPD 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
[2017-05-11] MEDS: Simvastatin 40 MG Tab PO SCH (22:01)
[2017-05-11] MEDS ORDERED: Acetaminophen 325 MG Tab PO PRN (22:10)
[2017-05-12] MEDS: Insulin Aspart 100 Units/ML 3 ML Pen SUBCUT SCH ×5 (00:08→21:33)
[2017-05-12] MEDS: methylPREDNISolone Sodium Succinate 125 MG/2 ML SDV IVPUSH SCH ×3 (00:08→13:31)
[2017-05-12] MEDS: Hypromellose 0.5% Ophth Soln 15 ML Bottle EYEBOTH SCH ×2 (08:00→21:30)
[2017-05-12] MEDS: Brimonidine 0.2% Ophth Soln 5 ML Bottle EYEBOTH SCH ×2 (08:08→08:09)
[2017-05-12] MEDS: Aspirin 81 MG Tab.Chew PO SCH (08:09)
[2017-05-12] MEDS: Metoprolol Succinate 50 MG Tab.ER PO SCH (08:09)
[2017-05-12] MEDS: Fish Oil/Omega-3 Fatty Acids 1 Gm Cap PO SCH (08:09)
[2017-05-12] MEDS: Multivitamins,Therapeutic Tab PO SCH (08:09)
[2017-05-12] MEDS: Nicotine 21 MG/24 Hr Patch TRDERM SCH (08:10)
[2017-05-12] MEDS: Tiotropium Inhaler 18 MCG Inhalation Powder Cap Kit of 5 INH SCH (08:47)
[2017-05-12] MEDS: Albuterol/Ipratropium 3.0-0.5 MG/3 ML Neb Soln NEB PRN ×2 (08:47→20:40)
[2017-05-12] MEDS: Formoterol/Mometasone 200-5 MCG 8.8 GM Inhaler IH SCH ×2 (08:47→20:40)
[2017-05-12] MEDS ORDERED: Levofloxacin/Dextrose 5%-Water 750 MG in Premix Bag 1 BAG IV SCH (09:00)
--- NOTE | 2017-05-12 11:49 | CR ---
Chest: Two views of the chest were obtained. Comparison: Prior chest x-ray of 05/10/17. Diffuse increased density which is mostly interstitial is seen throughout the right chest and within the left lung base. Findings are felt to be fairly stable from prior study when allowing for differences in technique. Calcified pleural plaque is noted on the right side. Heart size at the upper limits of normal. Previous sternotomy is noted. Bony structures are unremarkable for the patient's age. Impression: 1. Findings as noted above. No definite change from previous study is seen. Diagnostic code #2
[2017-05-12] MEDS: Patient's Own Medication 1 Each EYEBOTH SCH ×2 (12:28→21:30)
--- NOTE | 2017-05-12 13:01 | PCM.PN ---
- General Info Date of Service: 05/12/17 Functional Status: Reports: Tolerating Diet, Ambulating, Urinating - Review of Systems General: Reports: No Symptoms HEENT: Reports: No Symptoms Pulmonary: Reports: No Symptoms Cardiovascular: Reports: No Symptoms Gastrointestinal: Reports: No Symptoms Genitourinary: Reports: No Symptoms Musculoskeletal: Reports: No Symptoms Skin: Reports: No Symptoms Neurological: Reports: No Symptoms Psychiatric: Reports: No Symptoms - Patient Data Vitals - Most Recent: Last Vital Signs Temp 36.3 C 05/12/17 11:30 Pulse 90 05/12/17 11:30 Resp 18 05/12/17 11:30 BP 103/63 05/12/17 11:30 Pulse Ox 90 L 05/12/17 11:30 Weight - Most Recent: 78.154 kg I&O - Last 24 Hours: Intake & Output 05/11/17 05/12/17 05/12/17 22:59 06:59 14:59 Intake Total 1050 700 300 Output Total 1850 1300 Balance -800 -600 300 Lab Results Last 24 Hours: Laboratory Results - last 24 hr 05/11/17 05/11/17 05/11/17 Range/Units 12:30 18:30 23:15 WBC (4.23-9.07) K/mm3 RBC (4.63-6.08) M/mm3 Hgb (13.7-17.5) gm/L Hct (40.1-51.0) % MCV (79.0-92.2) fl MCH (25.7-32.2) pg MCHC (32.2-35.5) g/dl RDW Std Deviation (35.1-43.9) fL Plt Count (163-337) K/mm3 MPV (9.4-12.3) fl Neut % (Auto) (34.0-67.9) % Lymph % (Auto) (21.8-53.1) % Hood % (Auto) (5.3-12.2) % Eos % (Auto) (0.8-7.0) Baso % (Auto) (0.1-1.2) % Neut # (Auto) (1.78-5.38) K/mm3 Lymph # (Auto) (1.32-3.57) K/mm3 Hood # (Auto) (0.30-0.82) K/mm3 Eos # (Auto) (0.04-0.54) K/mm3 Baso # (Auto) (0.01-0.08) K/mm3 Manual Slide Review Sodium (136-145) mEq/L Potassium (3.5-5.1) mEq/L Chloride (98-107) mEq/L Carbon Dioxide (21-32) mEq/L Anion Gap (5-15) BUN (7-18) mg/dL Creatinine (0.7-1.3) mg/dL Est Cr Clr Drug Dosing mL/min Estimated GFR (MDRD) (>60) mL/min BUN/Creatinine Ratio (14-18) Glucose 528 H 536 H 424 H (83-115) mg/dL POC Glucose (83-110) mg/dL Hemoglobin A1c (4.50-6.20) % Calcium (8.5-10.1) mg/dL Magnesium (1.8-2.4) mg/dl C-Reactive Protein (<1.0) mg/dL 05/12/17 05/12/17 05/12/17 Range/Units 05:45 05:45 05:45 WBC 17.28 H (4.23-9.07) K/mm3 RBC 3.44 L (4.63-6.08) M/mm3 Hgb 10.9 L (13.7-17.5) gm/L Hct 33.1 L (40.1-51.0) % MCV 96.2 H (79.0-92.2) fl MCH 31.7 (25.7-32.2) pg MCHC 32.9 (32.2-35.5) g/dl RDW Std Deviation 47.2 H (35.1-43.9) fL Plt Count 220 (163-337) K/mm3 MPV 10.6 (9.4-12.3) fl Neut % (Auto) 90.6 H (34.0-67.9) % Lymph % (Auto) 3.6 L (21.8-53.1) % Hood % (Auto) 5.2 L (5.3-12.2) % Eos % (Auto) 0 L (0.8-7.0) Baso % (Auto) 0.1 (0.1-1.2) % Neut # (Auto) 15.66 H (1.78-5.38) K/mm3 Lymph # (Auto) 0.63 L (1.32-3.57) K/mm3 Hood # (Auto) 0.89 H (0.30-0.82) K/mm3 Eos # (Auto) 0.00 L (0.04-0.54) K/mm3 Baso # (Auto) 0.02 (0.01-0.08) K/mm3 Manual Slide Review Abnormal smear Sodium 138 (136-145) mEq/L Potassium 3.9 (3.5-5.1) mEq/L Chloride 102 (98-107) mEq/L Carbon Dioxide 28 (21-32) mEq/L Anion Gap 11.9 (5-15) BUN 31 H (7-18) mg/dL Creatinine 1.4 H (0.7-1.3) mg/dL Est Cr Clr Drug Dosing 39.83 mL/min Estimated GFR (MDRD) 48 (>60) mL/min BUN/Creatinine Ratio 22.1 H (14-18) Glucose 252 H (83-115) mg/dL POC Glucose (83-110) mg/dL Hemoglobin A1c 7.20 H (4.50-6.20) % Calcium 9.0 (8.5-10.1) mg/dL Magnesium 2.3 (1.8-2.4) mg/dl C-Reactive Protein 17.1 H* (<1.0) mg/dL 05/12/17 Range/Units 06:16 WBC (4.23-9.07) K/mm3 RBC (4.63-6.08) M/mm3 Hgb (13.7-17.5) gm/L Hct (40.1-51.0) % MCV (79.0-92.2) fl MCH (25.7-32.2) pg MCHC (32.2-35.5) g/dl RDW Std Deviation (35.1-43.9) fL Plt Count (163-337) K/mm3 MPV (9.4-12.3) fl Neut % (Auto) (34.0-67.9) % Lymph % (Auto) (21.8-53.1) % Hood % (Auto) (5.3-12.2) % Eos % (Auto) (0.8-7.0) Baso % (Auto) (0.1-1.2) % Neut # (Auto) (1.78-5.38) K/mm3 Lymph # (Auto) (1.32-3.57) K/mm3 Hood # (Auto) (0.30-0.82) K/mm3 Eos # (Auto) (0.04-0.54) K/mm3 Baso # (Auto) (0.01-0.08) K/mm3 Manual Slide Review Sodium (136-145) mEq/L Potassium (3.5-5.1) mEq/L Chloride (98-107) mEq/L Carbon Dioxide (21-32) mEq/L Anion Gap (5-15) BUN (7-18) mg/dL Creatinine (0.7-1.3) mg/dL Est Cr Clr Drug Dosing mL/min Estimated GFR (MDRD) (>60) mL/min BUN/Creatinine Ratio (14-18) Glucose (83-115) mg/dL POC Glucose 284 H (83-110) mg/dL Hemoglobin A1c (4.50-6.20) % Calcium (8.5-10.1) mg/dL Magnesium (1.8-2.4) mg/dl C-Reactive Protein (<1.0) mg/dL Carlos Results Last 24 Hours: Microbiology 05/10/17 16:30 Gram Stain - Final Sputum - Expectorated Sputum Culture - Final [facility]ORM[facility]PIRAT[facility] ALFREDO 2 DAYS Med Orders - Current: Current Medications Acetaminophen (Tylenol) 650 mg PO Q4H PRN PRN Reason: Pain Last Admin: 05/12/17 00:09 Dose: 650 mg Albuterol (Proventil Neb Soln) 2.5 mg NEB Q4H PRN PRN Reason: Shortness of Breath Last Admin: 05/10/17 23:15 Dose: 2.5 mg Albuterol/Ipratropium (Duoneb 3.0-0.5 Mg/3 Ml) 3 ml NEB QID PRN PRN Reason: Shortness of Breath Last Admin: 05/12/17 08:47 Dose: 3 ml Artificial Tears (Isopto Tears 0.5% Ophth Soln) 0 ml EYEBOTH BID [facility] Last Admin: 05/12/17 08:00 Dose: 1 drop Aspirin (Aspirin) 81 mg PO DAILY [facility] Last Admin: 05/12/17 08:09 Dose: 81 mg Dextrose/Water (Dextrose 50% In Water) 50 ml IVPUSH ASDIRECTED PRN PRN Reason: Hypoglycemia Fish Oil (Fish Oil) 1 gm PO DAILY [facility] Last Admin: 05/12/17 08:09 Dose: 1 gm Levofloxacin/Dextrose 750 mg/ (Premix) 150 mls @ 100 mls/hr IV Q48H [facility] Last Admin: 05/12/17 08:10 Dose: 100 mls/hr Insulin Aspart (Novolog) 0 unit SUBCUT QIDACANDBED [facility] PRN Reason: Protocol Last Admin: 05/12/17 07:50 Dose: 9 units Methylprednisolone Sodium Succinate (Solu-Medrol) 125 mg IVPUSH Q6H [facility] Last Admin: 05/12/17 07:00 Dose: 125 mg Metoprolol Succinate (Toprol Xl) 50 mg PO DAILY [facility] Last Admin: 05/12/17 08:09 Dose: 50 mg Mometasone Furoate/Formoterol Fumar (Dulera 200-5 Mcg) 2 puff IH BID [facility] Last Admin: 05/12/17 08:47 Dose: 2 puff Multivitamins (Thera) 1 each PO DAILY [facility] Last Admin: 05/12/17 08:09 Dose: 1 each Nicotine (Habitrol) 21 mg TRDERM DAILY [facility] Last Admin: 05/12/17 08:10 Dose: 21 mg Nitroglycerin (Nitrostat) 0.4 mg SL Q5M PRN PRN Reason: Chest Pain Patient Own Medication (Ptom) 0 each EYEBOTH BID [facility] Last Admin: 05/12/17 12:28 Dose: Not Given Simvastatin (Zocor) 40 mg PO BEDTIME [facility] Last Admin: 05/11/17 22:01 Dose: 40 mg Sodium Chloride (Saline Flush) 10 ml FLUSH ASDIRECTED PRN PRN Reason: Keep Vein Open Last Admin: 05/10/17 11:35 Dose: 10 ml Tiotropium [place] (Spiriva Handihaler) 18 mcg INH DAILY [facility] Last Admin: 05/12/17 08:47 Dose: 1 cap Discontinued Medications Albuterol/Ipratropium (Duoneb 3.0-0.5 Mg/3 Ml) 3 ml NEB ONETIME ONE Stop: 05/10/17 11:12 Last Admin: 05/10/17 11:25 Dose: 3 ml Brimonidine Tartrate (Alphagan 0.2% Ophth Soln) 0 ml EYEBOTH BID [facility] Last Admin: 05/12/17 08:09 Dose: 1 drop Furosemide (Lasix) 20 mg IVPUSH NOW ONE Stop: 05/11/17 11:09 Last Admin: 05/11/17 12:35 Dose: 20 mg Levofloxacin/Dextrose 750 mg/ (Premix) 150 mls @ 100 mls/hr IV ONETIME ONE Stop: 05/10/17 14:30 Last Admin: 05/10/17 13:12 Dose: 100 mls/hr Sodium Chloride (Sodium Chloride 0.45%) 1,000 mls @ 75 mls/hr IV ASDIRECTED [facility] Last Admin: 05/11/17 06:08 Dose: 75 mls/hr Magnesium Sulfate 4 gm/ Premix 100 mls @ 50 mls/hr IV ONETIME ONE Stop: 05/11/17 12:52 Last Admin: 05/11/17 14:37 Dose: Not Given Magnesium Sulfate 4 gm/ Premix 100 mls @ 50 mls/hr IV ONETIME ONE Stop: 05/11/17 15:14 Last Admin: 05/11/17 14:52 Dose: Not Given Magnesium Sulfate (Magnesium Sulfate 4 Gm In Water 100 Ml) Confirm Administered Dose 100 mls @ as directed .ROUTE .STK-MED ONE Stop: 05/11/17 13:14 Last Admin: 05/11/17 13:51 Dose: Not Given Magnesium Sulfate 2 gm/ Premix 50 mls @ 50 mls/hr IV Q1H [facility] Stop: 05/11/17 15:29 Last Admin: 05/11/17 14:58 Dose: 50 mls/hr Insulin Aspart (Novolog) 0 unit SUBCUT QIDACANDBED [facility] PRN Reason: Protocol Last Admin: 05/10/17 17:29 Dose: Not Given Insulin Aspart (Novolog) 0 unit SUBCUT QIDACANDBED [facility] PRN Reason: Protocol Last Admin: 05/11/17 14:50 Dose: Not Given Methylprednisolone Sodium Succinate (Solu-Medrol) 125 mg IVPUSH ONETIME ONE Stop: 05/10/17 11:12 Last Admin: 05/10/17 11:33 Dose: 125 mg Metoprolol Succinate (Toprol Xl) 50 mg PO DAILY [facility] Stop: 05/11/17 11:00 Last Admin: 05/11/17 10:29 Dose: 50 mg Mometasone Furoate/Formoterol Fumar (Dulera 200-5 Mcg) 2 puff IH BIDRT [facility] Potassium Chloride (Potassium Chloride) 20 meq PO ONETIME ONE Stop: 05/11/17 11:10 Last Admin: 05/11/17 12:35 Dose: 20 meq Tiotropium [place] (Spiriva Handihaler) 18 mcg INH DAILYRT [facility] - Exam Quality Assessment: Supplemental Oxygen, DVT Prophylaxis General: Alert, Oriented, Cooperative, No Acute Distress HEENT: Pupils Equal, Pupils Reactive, EOMI Neck: Supple, Trachea Midline Lungs: Normal Respiratory Effort, Decreased Breath Sounds Cardiovascular: Regular Rate, Regular Rhythm GI/Abdominal Exam: Normal Bowel Sounds, Soft, Non-Tender, No Organomegaly, No Distention (Male) Exam: Deferred Back Exam: Normal Inspection Extremities: Normal Inspection Skin: Warm Neurological: No New Focal Deficit Psy/Mental Status: Alert, Normal Affect, Normal Mood - Problem List & Annotations (1) CAD (coronary artery disease) SNOMED Code(s): 64141007 Code(s): I25.10 - ATHSCL HEART DISEASE OF [place] CORONARY ARTERY W/O ANG PCTRS Status: Acute Current Visit: Yes (2) Diabetes mellitus SNOMED Code(s): 84491036 Code(s): E11.9 - TYPE 2 DIABETES MELLITUS WITHOUT COMPLICATIONS Status: Acute Current Visit: Yes (3) Hypoxia SNOMED Code(s): 214718411 Code(s): R09.02 - HYPOXEMIA Status: Acute Current Visit: Yes (4) Pneumonia SNOMED Code(s): 322407603 Code(s): J18.9 - PNEUMONIA, UNSPECIFIED ORGANISM Status: Acute Current Visit: Yes Qualifiers: Pneumonia type: due to unspecified organism Laterality: left Lung location: lower lobe of lung Qualified Code(s): J18.1 - Lobar pneumonia, unspecified organism (5) CHF, Congestive heart failure SNOMED Code(s): 58561773 Code(s): I50.9 - HEART FAILURE, UNSPECIFIED Status: Acute Current Visit: No (6) COLD, Chronic obstructive lung disease SNOMED Code(s): 32380577 Code(s): J44.9 - CHRONIC OBSTRUCTIVE PULMONARY DISEASE, UNSPECIFIED Status : Acute Current Visit: No (7) Hypertension SNOMED Code(s): 80712980 Code(s): I10 - ESSENTIAL (PRIMARY) HYPERTENSION Status: Acute Current Visit: Yes (8) Hyperlipidemia SNOMED Code(s): 44041703 Code(s): E78.5 - HYPERLIPIDEMIA, UNSPECIFIED Status: Acute Current Visit : Yes - Problem List Review Problem List Initiated/Reviewed/Updated: Yes - My Orders Last 24 Hours: My Active Orders 05/11/17 17:00 Insulin Aspart [NovoLOG] See Protocol SUBCUT QIDACANDBED 05/11/17 22:10 Acetaminophen [Tylenol] 650 mg PO Q4H PRN 05/12/17 09:00 Levofloxacin/Dextrose 5%-Water [Levaquin in D5W 750 MG/150 ML] 750 mg Premix Bag 1 bag IV Q48H Metoprolol Succinate [Toprol XL] 50 mg PO DAILY 05/12/17 09:35 Patient's Own Medication [Ptom] 0 each EYEBOTH BID 05/12/17 12:13 GLUCOSE RANDOM [CHEM] Routine 05/12/17 12:22 Consult to Dietary [Consult to Dispensary Attendant] [CONS] Routine 05/13/17 05:00 BMP [BASIC METABOLIC PANEL,BMP] [CHEM] DAILY CBC WITH AUTO DIFF [HEME] DAILY CRP [C-REACTIVE PROTEIN] [CHEM] DAILY MG [MAGNESIUM] [CHEM] DAILY 05/14/17 05:00 BMP [BASIC METABOLIC PANEL,BMP] [CHEM] DAILY CBC WITH AUTO DIFF [HEME] DAILY CRP [C-REACTIVE PROTEIN] [CHEM] DAILY MG [MAGNESIUM] [CHEM] DAILY - Plan Plan:: Impression: LLE PNA, unspecified IV Steroids Hypoxia, history of COPD O2 dependent at night DM with profoundly elevated BS, using High SS Chronic CHF, unspecified HTN CAD with CABG HLD DM type 2 Plan: IVF as needed IV ATB IV steroids-->decrease dose Nebs Home meds Daily labs SS insulin Nicotine replacement DVT/GI prophylaxis SW/PT/OT
[2017-05-12] MEDS ORDERED: Sodium Chloride 0.45% 1,000 ML IV SCH (13:15)
--- NOTE | 2017-05-12 14:35 | CR ---
Chest: Portable view of the chest was obtained. Comparison: Prior chest x-ray of 04/28/14. Heart size slightly enlarged. Increased central lung markings are seen felt to be fairly stable from prior exam. Calcified pleural plaque is noted within the right lung base. Blunting of the lateral left costophrenic angle is seen which is stable. Previous sternotomy is seen. Bony structures are grossly intact. Impression: 1. Findings as described above. No significant change is seen from prior chest x-ray. Diagnostic code #3
[2017-05-12] MEDS: methylPREDNISolone Sodium Succinate 40 MG/1 ML SDV IVPUSH SCH (21:31)
[2017-05-12] MEDS: Simvastatin 40 MG Tab PO SCH (21:32)
[2017-05-13] MEDS: methylPREDNISolone Sodium Succinate 40 MG/1 ML SDV IVPUSH SCH ×3 (04:02→23:49)
[2017-05-13] MEDS: Insulin Aspart 100 Units/ML 3 ML Pen SUBCUT SCH ×4 (07:14→21:33)
[2017-05-13] MEDS: Tiotropium Inhaler 18 MCG Inhalation Powder Cap Kit of 5 INH SCH (08:17)
[2017-05-13] MEDS: Albuterol/Ipratropium 3.0-0.5 MG/3 ML Neb Soln NEB PRN ×2 (08:17→21:21)
[2017-05-13] MEDS: Formoterol/Mometasone 200-5 MCG 8.8 GM Inhaler IH SCH ×2 (08:17→21:21)
[2017-05-13] MEDS: Multivitamins,Therapeutic Tab PO SCH (08:37)
[2017-05-13] MEDS: Aspirin 81 MG Tab.Chew PO SCH (08:37)
[2017-05-13] MEDS: Metoprolol Succinate 50 MG Tab.ER PO SCH (08:37)
[2017-05-13] MEDS: Fish Oil/Omega-3 Fatty Acids 1 Gm Cap PO SCH (08:37)
[2017-05-13] MEDS: Nicotine 21 MG/24 Hr Patch TRDERM SCH (08:38)
[2017-05-13] MEDS: Hypromellose 0.5% Ophth Soln 15 ML Bottle EYEBOTH SCH ×2 (08:39→21:35)
[2017-05-13] MEDS: Patient's Own Medication 1 Each EYEBOTH SCH ×2 (08:39→21:35)
[2017-05-13] MEDS ORDERED: Insulin Detemir 100 Units/ML 3 ML Pen SUBCUT ONE (12:00)
[2017-05-13] MEDS: Levofloxacin/Dextrose 5%-Water 750 MG in Premix Bag 1 BAG IV SCH (12:47)
--- NOTE | 2017-05-13 15:15 | PCM.PN ---
- General Info Date of Service: 05/13/17 Functional Status: Reports: Pain Controlled, Tolerating Diet, Ambulating, Urinating - Review of Systems General: Reports: Weakness, Fatigue HEENT: Reports: No Symptoms Pulmonary: Reports: No Symptoms Cardiovascular: Reports: No Symptoms Gastrointestinal: Reports: No Symptoms Genitourinary: Reports: No Symptoms Musculoskeletal: Reports: No Symptoms Skin: Reports: No Symptoms Neurological: Reports: No Symptoms Psychiatric: Reports: No Symptoms - Patient Data Vitals - Most Recent: Last Vital Signs Temp 36.6 C 05/13/17 13:18 Pulse 78 05/13/17 13:18 Resp 24 H 05/13/17 13:18 BP 118/60 05/13/17 13:18 Pulse Ox 96 05/13/17 13:18 Weight - Most Recent: 77.791 kg I&O - Last 24 Hours: Intake & Output 05/13/17 05/13/17 05/13/17 06:59 14:59 22:59 Intake Total 875 360 Output Total 500 Balance 375 360 Lab Results Last 24 Hours: Laboratory Results - last 24 hr 05/12/17 05/12/17 05/13/17 Range/Units 16:47 20:33 05:45 WBC 16.85 H (4.23-9.07) K/mm3 RBC 3.50 L (4.63-6.08) M/mm3 Hgb 10.8 L (13.7-17.5) gm/L Hct 33.6 L (40.1-51.0) % MCV 96.0 H (79.0-92.2) fl MCH 30.9 (25.7-32.2) pg MCHC 32.1 L (32.2-35.5) g/dl RDW Std Deviation 47.6 H (35.1-43.9) fL Plt Count 230 (163-337) K/mm3 MPV 10.7 (9.4-12.3) fl Neut % (Auto) 92.3 H (34.0-67.9) % Lymph % (Auto) 3.3 L (21.8-53.1) % Reeves % (Auto) 3.8 L (5.3-12.2) % Eos % (Auto) 0 L (0.8-7.0) Baso % (Auto) 0.1 (0.1-1.2) % Neut # (Auto) 15.56 H (1.78-5.38) K/mm3 Lymph # (Auto) 0.55 L (1.32-3.57) K/mm3 Reeves # (Auto) 0.64 (0.30-0.82) K/mm3 Eos # (Auto) 0.00 L (0.04-0.54) K/mm3 Baso # (Auto) 0.01 (0.01-0.08) K/mm3 Manual Slide Review Abnormal smear Sodium (136-145) mEq/L Potassium (3.5-5.1) mEq/L Chloride (98-107) mEq/L Carbon Dioxide (21-32) mEq/L Anion Gap (5-15) BUN (7-18) mg/dL Creatinine (0.7-1.3) mg/dL Est Cr Clr Drug Dosing mL/min Estimated GFR (MDRD) (>60) mL/min BUN/Creatinine Ratio (14-18) Glucose (83-115) mg/dL POC Glucose 372 H 191 H (83-110) mg/dL Calcium (8.5-10.1) mg/dL Magnesium (1.8-2.4) mg/dl C-Reactive Protein (<1.0) mg/dL 05/13/17 05/13/17 05/13/17 Range/Units 05:45 05:45 11:46 WBC (4.23-9.07) K/mm3 RBC (4.63-6.08) M/mm3 Hgb (13.7-17.5) gm/L Hct (40.1-51.0) % MCV (79.0-92.2) fl MCH (25.7-32.2) pg MCHC (32.2-35.5) g/dl RDW Std Deviation (35.1-43.9) fL Plt Count (163-337) K/mm3 MPV (9.4-12.3) fl Neut % (Auto) (34.0-67.9) % Lymph % (Auto) (21.8-53.1) % Reeves % (Auto) (5.3-12.2) % Eos % (Auto) (0.8-7.0) Baso % (Auto) (0.1-1.2) % Neut # (Auto) (1.78-5.38) K/mm3 Lymph # (Auto) (1.32-3.57) K/mm3 Reeves # (Auto) (0.30-0.82) K/mm3 Eos # (Auto) (0.04-0.54) K/mm3 Baso # (Auto) (0.01-0.08) K/mm3 Manual Slide Review Sodium 138 (136-145) mEq/L Potassium 4.4 (3.5-5.1) mEq/L Chloride 101 (98-107) mEq/L Carbon Dioxide 28 (21-32) mEq/L Anion Gap 13.4 (5-15) BUN 31 H (7-18) mg/dL Creatinine 1.1 (0.7-1.3) mg/dL Est Cr Clr Drug Dosing 50.69 mL/min Estimated GFR (MDRD) > 60 (>60) mL/min BUN/Creatinine Ratio 28.2 H (14-18) Glucose 361 H (83-115) mg/dL POC Glucose 364 H 390 H (83-110) mg/dL Calcium 8.9 (8.5-10.1) mg/dL Magnesium 2.0 (1.8-2.4) mg/dl C-Reactive Protein 11.5 H* (<1.0) mg/dL Carlos Results Last 24 Hours: Microbiology 05/10/17 18:45 Streptococcus pneumoniae Antigen (M - Final Urine 05/10/17 16:30 Respiratory Virus Panel (PCR) (CARLOS) - Final Nasopharyngeal Swab 05/10/17 16:30 Gram Stain - Final Sputum - Expectorated Sputum Culture - Final [facility]ORM[facility] RESPIRATORY [facility] ALFREDO 2 DAYS Med Orders - Current: Current Medications Acetaminophen (Tylenol) 650 mg PO Q4H PRN PRN Reason: Pain Last Admin: 05/12/17 00:09 Dose: 650 mg Albuterol (Proventil Neb Soln) 2.5 mg NEB Q4H PRN PRN Reason: Shortness of Breath Last Admin: 05/10/17 23:15 Dose: 2.5 mg Albuterol/Ipratropium (Duoneb 3.0-0.5 Mg/3 Ml) 3 ml NEB QID PRN PRN Reason: Shortness of Breath Last Admin: 05/13/17 08:17 Dose: 3 ml Artificial Tears (Isopto Tears 0.5% Ophth Soln) 0 ml EYEBOTH BID [facility] Last Admin: 05/13/17 08:39 Dose: 1 drop Aspirin (Aspirin) 81 mg PO DAILY [facility] Last Admin: 05/13/17 08:37 Dose: 81 mg Dextrose/Water (Dextrose 50% In Water) 50 ml IVPUSH ASDIRECTED PRN PRN Reason: Hypoglycemia Fish Oil (Fish Oil) 1 gm PO DAILY [facility] Last Admin: 05/13/17 08:37 Dose: 1 gm Guaifenesin (Mucinex) 1,200 mg PO Q12HR PRN PRN Reason: Congestion Sodium Chloride (Sodium Chloride 0.45%) 1,000 mls @ 75 mls/hr IV ASDIRECTED [facility] Last Admin: 05/12/17 15:34 Dose: 75 mls/hr Levofloxacin/Dextrose 750 mg/ (Premix) 150 mls @ 100 mls/hr IV Q24H [facility] Last Admin: 05/13/17 12:47 Dose: 100 mls/hr Insulin Aspart (Novolog) 0 unit SUBCUT QIDACANDBED [facility] PRN Reason: Protocol Last Admin: 05/13/17 11:47 Dose: 15 units Methylprednisolone Sodium Succinate (Solu-Medrol) 40 mg IVPUSH Q12H [facility] Metoprolol Succinate (Toprol Xl) 50 mg PO DAILY [facility] Last Admin: 05/13/17 08:37 Dose: 50 mg Mometasone Furoate/Formoterol Fumar (Dulera 200-5 Mcg) 2 puff IH BID [facility] Last Admin: 05/13/17 08:17 Dose: 2 puff Multivitamins (Thera) 1 each PO DAILY [facility] Last Admin: 05/13/17 08:37 Dose: 1 each Nicotine (Habitrol) 21 mg TRDERM DAILY [facility] Last Admin: 05/13/17 08:38 Dose: 21 mg Nitroglycerin (Nitrostat) 0.4 mg SL Q5M PRN PRN Reason: Chest Pain Patient Own Medication (Ptom) 0 each EYEBOTH BID [facility] Last Admin: 05/13/17 08:39 Dose: 1 each Simvastatin (Zocor) 40 mg PO BEDTIME [facility] Last Admin: 05/12/17 21:32 Dose: 40 mg Sodium Chloride (Saline Flush) 10 ml FLUSH ASDIRECTED PRN PRN Reason: Keep Vein Open Last Admin: 05/10/17 11:35 Dose: 10 ml Tiotropium [place] (Spiriva Handihaler) 18 mcg INH DAILY [facility] Last Admin: 05/13/17 08:17 Dose: 1 cap Discontinued Medications Albuterol/Ipratropium (Duoneb 3.0-0.5 Mg/3 Ml) 3 ml NEB ONETIME ONE Stop: 05/10/17 11:12 Last Admin: 05/10/17 11:25 Dose: 3 ml Brimonidine Tartrate (Alphagan 0.2% Ophth Soln) 0 ml EYEBOTH BID [facility] Last Admin: 05/12/17 08:09 Dose: 1 drop Furosemide (Lasix) 20 mg IVPUSH NOW ONE Stop: 05/11/17 11:09 Last Admin: 05/11/17 12:35 Dose: 20 mg Levofloxacin/Dextrose 750 mg/ (Premix) 150 mls @ 100 mls/hr IV ONETIME ONE Stop: 05/10/17 14:30 Last Admin: 05/10/17 13:12 Dose: 100 mls/hr Levofloxacin/Dextrose 750 mg/ (Premix) 150 mls @ 100 mls/hr IV Q48H [facility] Last Admin: 05/12/17 08:10 Dose: 100 mls/hr Sodium Chloride (Sodium Chloride 0.45%) 1,000 mls @ 75 mls/hr IV ASDIRECTED [facility] Last Admin: 05/11/17 06:08 Dose: 75 mls/hr Magnesium Sulfate 4 gm/ Premix 100 mls @ 50 mls/hr IV ONETIME ONE Stop: 05/11/17 12:52 Last Admin: 05/11/17 14:37 Dose: Not Given Magnesium Sulfate 4 gm/ Premix 100 mls @ 50 mls/hr IV ONETIME ONE Stop: 05/11/17 15:14 Last Admin: 05/11/17 14:52 Dose: Not Given Magnesium Sulfate (Magnesium Sulfate 4 Gm In Water 100 Ml) Confirm Administered Dose 100 mls @ as directed .ROUTE .STK-MED ONE Stop: 05/11/17 13:14 Last Admin: 05/11/17 13:51 Dose: Not Given Magnesium Sulfate 2 gm/ Premix 50 mls @ 50 mls/hr IV Q1H [facility] Stop: 05/11/17 15:29 Last Admin: 05/11/17 14:58 Dose: 50 mls/hr Insulin Aspart (Novolog) 0 unit SUBCUT QIDACANDBED [facility] PRN Reason: Protocol Last Admin: 05/10/17 17:29 Dose: Not Given Insulin Aspart (Novolog) 0 unit SUBCUT QIDACANDBED [facility] PRN Reason: Protocol Last Admin: 05/11/17 14:50 Dose: Not Given Insulin Detemir (Levemir) 2 unit SUBCUT ONETIME ONE Stop: 05/13/17 12:01 Last Admin: 05/13/17 12:50 Dose: 2 units Methylprednisolone Sodium Succinate (Solu-Medrol) 125 mg IVPUSH ONETIME ONE Stop: 05/10/17 11:12 Last Admin: 05/10/17 11:33 Dose: 125 mg Methylprednisolone Sodium Succinate (Solu-Medrol) 125 mg IVPUSH Q6H [facility] Last Admin: 05/12/17 13:31 Dose: 125 mg Methylprednisolone Sodium Succinate (Solu-Medrol) 80 mg IVPUSH Q8H [facility] Last Admin: 05/13/17 12:47 Dose: 80 mg Metoprolol Succinate (Toprol Xl) 50 mg PO DAILY [facility] Stop: 05/11/17 11:00 Last Admin: 05/11/17 10:29 Dose: 50 mg Mometasone Furoate/Formoterol Fumar (Dulera 200-5 Mcg) 2 puff IH BIDRT [facility] Potassium Chloride (Potassium Chloride) 20 meq PO ONETIME ONE Stop: 05/11/17 11:10 Last Admin: 05/11/17 12:35 Dose: 20 meq Tiotropium Aragon (Spiriva Handihaler) 18 mcg INH DAILYRT [facility] - Exam Quality Assessment: Supplemental Oxygen, DVT Prophylaxis General: Alert, Oriented, Cooperative HEENT: Pupils Equal, Pupils Reactive, EOMI Neck: Trachea Midline, No JVD Lungs: Normal Respiratory Effort, Decreased Breath Sounds Cardiovascular: Regular Rate, Regular Rhythm GI/Abdominal Exam: Normal Bowel Sounds, Soft, Non-Tender, No Organomegaly, No Distention (Male) Exam: Deferred Back Exam: Normal Inspection Extremities: Normal Inspection Skin: Warm Neurological: No New Focal Deficit, Normal Gait, Normal Speech Psy/Mental Status: Alert, Normal Affect, Normal Mood - Problem List & Annotations (1) CAD (coronary artery disease) SNOMED Code(s): 84697663 Code(s): I25.10 - ATHSCL HEART DISEASE OF [place] CORONARY ARTERY W/O ANG PCTRS Status: Acute Current Visit: Yes (2) Diabetes mellitus SNOMED Code(s): 46078514 Code(s): E11.9 - TYPE 2 DIABETES MELLITUS WITHOUT COMPLICATIONS Status: Acute Current Visit: Yes (3) Hypoxia SNOMED Code(s): 291333786 Code(s): R09.02 - HYPOXEMIA Status: Acute Current Visit: Yes (4) Pneumonia SNOMED Code(s): 227018518 Code(s): J18.9 - PNEUMONIA, UNSPECIFIED ORGANISM Status: Acute Current Visit: Yes Qualifiers: Pneumonia type: due to unspecified organism Laterality: left Lung location: lower lobe of lung Qualified Code(s): J18.1 - Lobar pneumonia, unspecified organism (5) CHF, Congestive heart failure SNOMED Code(s): 82273574 Code(s): I50.9 - HEART FAILURE, UNSPECIFIED Status: Acute Current Visit: No (6) COLD, Chronic obstructive lung disease SNOMED Code(s): 28665594 Code(s): J44.9 - CHRONIC OBSTRUCTIVE PULMONARY DISEASE, UNSPECIFIED Status : Acute Current Visit: No (7) Hypertension SNOMED Code(s): 56968216 Code(s): I10 - ESSENTIAL (PRIMARY) HYPERTENSION Status: Acute Current Visit: Yes (8) Hyperlipidemia SNOMED Code(s): 20758451 Code(s): E78.5 - HYPERLIPIDEMIA, UNSPECIFIED Status: Acute Current Visit : Yes - Problem List Review Problem List Initiated/Reviewed/Updated: Yes - My Orders Last 24 Hours: My Active Orders 05/13/17 09:00 Levofloxacin/Dextrose 5%-Water [Levaquin in D5W 750 MG/150 ML] 750 mg Premix Bag 1 bag IV Q24H 05/13/17 14:04 guaiFENesin [Mucinex] 1,200 mg PO Q12HR PRN 05/13/17 15:15 methylPREDNISolone Sod Succ [Solu-MEDROL] 40 mg IVPUSH Q12H 05/14/17 05:00 BMP [BASIC METABOLIC PANEL,BMP] [CHEM] DAILY CBC WITH AUTO DIFF [HEME] DAILY CRP [C-REACTIVE PROTEIN] [CHEM] DAILY MG [MAGNESIUM] [CHEM] DAILY - Plan Plan:: Impression: LLE PNA, unspecified IV Steroids Hypoxia, history of COPD O2 dependent at night DM with profoundly elevated BS, using High SS Chronic CHF, unspecified HTN CAD with CABG HLD DM type 2 Plan: STart Levemir while on steroids IVF as needed IV ATB IV steroids-->decrease dose Nebs Home meds Daily labs SS insulin Nicotine replacement DVT/GI prophylaxis SW/PT/OT LOS>96 hours with gradual response to treatment.
[2017-05-13] MEDS: Simvastatin 40 MG Tab PO SCH (21:32)
[2017-05-14] MEDS: guaiFENesin 600 MG Tab.ER PO PRN (08:32)
[2017-05-14] MEDS: Nicotine 21 MG/24 Hr Patch TRDERM SCH (08:32)
[2017-05-14] MEDS: Multivitamins,Therapeutic Tab PO SCH (08:33)
[2017-05-14] MEDS: Insulin Aspart 100 Units/ML 3 ML Pen SUBCUT SCH ×4 (08:33→22:30)
[2017-05-14] MEDS: Aspirin 81 MG Tab.Chew PO SCH (08:33)
[2017-05-14] MEDS: Hypromellose 0.5% Ophth Soln 15 ML Bottle EYEBOTH SCH ×2 (08:33→22:30)
[2017-05-14] MEDS: Fish Oil/Omega-3 Fatty Acids 1 Gm Cap PO SCH (08:33)
[2017-05-14] MEDS: Metoprolol Succinate 50 MG Tab.ER PO SCH (08:34)
[2017-05-14] MEDS: Patient's Own Medication 1 Each EYEBOTH SCH ×2 (08:34→22:30)
[2017-05-14] MEDS: Levofloxacin/Dextrose 5%-Water 750 MG in Premix Bag 1 BAG IV SCH (08:34)
[2017-05-14] MEDS: Formoterol/Mometasone 200-5 MCG 8.8 GM Inhaler IH SCH ×2 (09:12→21:10)
[2017-05-14] MEDS: Albuterol/Ipratropium 3.0-0.5 MG/3 ML Neb Soln NEB PRN ×2 (09:12→21:10)
[2017-05-14] MEDS: Tiotropium Inhaler 18 MCG Inhalation Powder Cap Kit of 5 INH SCH (09:12)
--- NOTE | 2017-05-14 11:42 | PCM.PN ---
- General Info Date of Service: 05/14/17 Functional Status: Reports: Tolerating Diet, Ambulating, Urinating - Review of Systems General: Reports: Weakness, Malaise HEENT: Reports: No Symptoms Pulmonary: Reports: Shortness of Breath, Sputum, Wheezing Cardiovascular: Reports: No Symptoms Gastrointestinal: Reports: No Symptoms Genitourinary: Reports: No Symptoms Musculoskeletal: Reports: No Symptoms Skin: Reports: No Symptoms Neurological: Reports: No Symptoms Psychiatric: Reports: No Symptoms - Patient Data Vitals - Most Recent: Last Vital Signs Temp 36.4 C 05/14/17 07:52 Pulse 77 05/14/17 08:34 Resp 24 H 05/14/17 07:52 BP 121/89 05/14/17 08:34 Pulse Ox 91 L 05/14/17 09:13 Weight - Most Recent: 77.428 kg I&O - Last 24 Hours: Intake & Output 05/13/17 05/14/17 05/14/17 22:59 06:59 14:59 Intake Total 1410 800 Output Total 1175 600 Balance 235 200 Lab Results Last 24 Hours: Laboratory Results - last 24 hr 05/13/17 05/13/17 05/13/17 Range/Units 11:46 16:56 21:01 WBC (4.23-9.07) K/mm3 RBC (4.63-6.08) M/mm3 Hgb (13.7-17.5) gm/L Hct (40.1-51.0) % MCV (79.0-92.2) fl MCH (25.7-32.2) pg MCHC (32.2-35.5) g/dl RDW Std Deviation (35.1-43.9) fL Plt Count (163-337) K/mm3 MPV (9.4-12.3) fl Neut % (Auto) (34.0-67.9) % Lymph % (Auto) (21.8-53.1) % [place] % (Auto) (5.3-12.2) % Eos % (Auto) (0.8-7.0) Baso % (Auto) (0.1-1.2) % Neut # (Auto) (1.78-5.38) K/mm3 Lymph # (Auto) (1.32-3.57) K/mm3 [place] # (Auto) (0.30-0.82) K/mm3 Eos # (Auto) (0.04-0.54) K/mm3 Baso # (Auto) (0.01-0.08) K/mm3 Manual Slide Review Sodium (136-145) mEq/L Potassium (3.5-5.1) mEq/L Chloride (98-107) mEq/L Carbon Dioxide (21-32) mEq/L Anion Gap (5-15) BUN (7-18) mg/dL Creatinine (0.7-1.3) mg/dL Est Cr Clr Drug Dosing mL/min Estimated GFR (MDRD) (>60) mL/min BUN/Creatinine Ratio (14-18) Glucose (83-115) mg/dL POC Glucose 390 H 323 H 393 H (83-110) mg/dL Calcium (8.5-10.1) mg/dL Magnesium (1.8-2.4) mg/dl C-Reactive Protein (<1.0) mg/dL 05/14/17 05/14/17 05/14/17 Range/Units 06:15 06:15 06:38 WBC 17.26 H (4.23-9.07) K/mm3 RBC 3.65 L (4.63-6.08) M/mm3 Hgb 11.3 L (13.7-17.5) gm/L Hct 35.0 L (40.1-51.0) % MCV 95.9 H (79.0-92.2) fl MCH 31.0 (25.7-32.2) pg MCHC 32.3 (32.2-35.5) g/dl RDW Std Deviation 48.3 H (35.1-43.9) fL Plt Count 238 (163-337) K/mm3 MPV 10.6 (9.4-12.3) fl Neut % (Auto) 90.9 H (34.0-67.9) % Lymph % (Auto) 4.8 L (21.8-53.1) % [place] % (Auto) 3.2 L (5.3-12.2) % Eos % (Auto) 0 L (0.8-7.0) Baso % (Auto) 0.1 (0.1-1.2) % Neut # (Auto) 15.69 H (1.78-5.38) K/mm3 Lymph # (Auto) 0.82 L (1.32-3.57) K/mm3 [place] # (Auto) 0.56 (0.30-0.82) K/mm3 Eos # (Auto) 0.00 L (0.04-0.54) K/mm3 Baso # (Auto) 0.02 (0.01-0.08) K/mm3 Manual Slide Review Abnormal smear Sodium 139 (136-145) mEq/L Potassium 4.8 (3.5-5.1) mEq/L Chloride 103 (98-107) mEq/L Carbon Dioxide 29 (21-32) mEq/L Anion Gap 11.8 (5-15) BUN 31 H (7-18) mg/dL Creatinine 1.0 (0.7-1.3) mg/dL Est Cr Clr Drug Dosing 55.76 mL/min Estimated GFR (MDRD) > 60 (>60) mL/min BUN/Creatinine Ratio 31.0 H (14-18) Glucose 279 H (83-115) mg/dL POC Glucose 297 H (83-110) mg/dL Calcium 9.1 (8.5-10.1) mg/dL Magnesium 2.0 (1.8-2.4) mg/dl C-Reactive Protein 6.8 H* (<1.0) mg/dL [place] Results Last 24 Hours: Microbiology 05/10/17 18:45 Streptococcus pneumoniae Antigen (M - Final Urine Med Orders - Current: Current Medications Acetaminophen (Tylenol) 650 mg PO Q4H PRN PRN Reason: Pain Last Admin: 05/12/17 00:09 Dose: 650 mg Albuterol (Proventil Neb Soln) 2.5 mg NEB Q4H PRN PRN Reason: Shortness of Breath Last Admin: 05/10/17 23:15 Dose: 2.5 mg Albuterol/Ipratropium (Duoneb 3.0-0.5 Mg/3 Ml) 3 ml NEB QID PRN PRN Reason: Shortness of Breath Last Admin: 05/14/17 09:12 Dose: 3 ml Artificial Tears (Isopto Tears 0.5% Ophth Soln) 0 ml EYEBOTH BID [facility] Last Admin: 05/14/17 08:33 Dose: 1 drop Aspirin (Aspirin) 81 mg PO DAILY [facility] Last Admin: 05/14/17 08:33 Dose: 81 mg Dextrose/Water (Dextrose 50% In Water) 50 ml IVPUSH ASDIRECTED PRN PRN Reason: Hypoglycemia Fish Oil (Fish Oil) 1 gm PO DAILY [facility] Last Admin: 05/14/17 08:33 Dose: 1 gm Guaifenesin (Mucinex) 1,200 mg PO Q12HR PRN PRN Reason: Congestion Last Admin: 05/14/17 08:32 Dose: 1,200 mg Sodium Chloride (Sodium Chloride 0.45%) 1,000 mls @ 75 mls/hr IV ASDIRECTED [facility] Last Admin: 05/12/17 15:34 Dose: 75 mls/hr Levofloxacin/Dextrose 750 mg/ (Premix) 150 mls @ 100 mls/hr IV Q24H [facility] Last Admin: 05/14/17 08:34 Dose: 100 mls/hr Insulin Aspart (Novolog) 0 unit SUBCUT QIDACANDBED [facility] PRN Reason: Protocol Last Admin: 05/14/17 08:33 Dose: 9 units Methylprednisolone Sodium Succinate (Solu-Medrol) 40 mg IVPUSH Q12H [facility] Last Admin: 05/13/17 23:49 Dose: 40 mg Metoprolol Succinate (Toprol Xl) 50 mg PO DAILY [facility] Last Admin: 05/14/17 08:34 Dose: 50 mg Mometasone Furoate/Formoterol Fumar (Dulera 200-5 Mcg) 2 puff IH BID [facility] Last Admin: 05/14/17 09:12 Dose: 2 puff Multivitamins (Thera) 1 each PO DAILY [facility] Last Admin: 05/14/17 08:33 Dose: 1 each Nicotine (Habitrol) 21 mg TRDERM DAILY [facility] Last Admin: 05/14/17 08:32 Dose: 21 mg Nitroglycerin (Nitrostat) 0.4 mg SL Q5M PRN PRN Reason: Chest Pain Patient Own Medication (Ptom) 0 each EYEBOTH BID [facility] Last Admin: 05/14/17 08:34 Dose: 1 each Simvastatin (Zocor) 40 mg PO BEDTIME [facility] Last Admin: 05/13/17 21:32 Dose: 40 mg Sodium Chloride (Saline Flush) 10 ml FLUSH ASDIRECTED PRN PRN Reason: Keep Vein Open Last Admin: 05/10/17 11:35 Dose: 10 ml Tiotropium [place] (Spiriva Handihaler) 18 mcg INH DAILY [facility] Last Admin: 05/14/17 09:12 Dose: 1 cap Discontinued Medications Albuterol/Ipratropium (Duoneb 3.0-0.5 Mg/3 Ml) 3 ml NEB ONETIME ONE Stop: 05/10/17 11:12 Last Admin: 05/10/17 11:25 Dose: 3 ml Brimonidine Tartrate (Alphagan 0.2% Ophth Soln) 0 ml EYEBOTH BID [facility] Last Admin: 05/12/17 08:09 Dose: 1 drop Furosemide (Lasix) 20 mg IVPUSH NOW ONE Stop: 05/11/17 11:09 Last Admin: 05/11/17 12:35 Dose: 20 mg Levofloxacin/Dextrose 750 mg/ (Premix) 150 mls @ 100 mls/hr IV ONETIME ONE Stop: 05/10/17 14:30 Last Admin: 05/10/17 13:12 Dose: 100 mls/hr Levofloxacin/Dextrose 750 mg/ (Premix) 150 mls @ 100 mls/hr IV Q48H [facility] Last Admin: 05/12/17 08:10 Dose: 100 mls/hr Sodium Chloride (Sodium Chloride 0.45%) 1,000 mls @ 75 mls/hr IV ASDIRECTED [facility] Last Admin: 05/11/17 06:08 Dose: 75 mls/hr Magnesium Sulfate 4 gm/ Premix 100 mls @ 50 mls/hr IV ONETIME ONE Stop: 05/11/17 12:52 Last Admin: 05/11/17 14:37 Dose: Not Given Magnesium Sulfate 4 gm/ Premix 100 mls @ 50 mls/hr IV ONETIME ONE Stop: 05/11/17 15:14 Last Admin: 05/11/17 14:52 Dose: Not Given Magnesium Sulfate (Magnesium Sulfate 4 Gm In Water 100 Ml) Confirm Administered Dose 100 mls @ as directed .ROUTE .STK-MED ONE Stop: 05/11/17 13:14 Last Admin: 05/11/17 13:51 Dose: Not Given Magnesium Sulfate 2 gm/ Premix 50 mls @ 50 mls/hr IV Q1H [facility] Stop: 05/11/17 15:29 Last Admin: 05/11/17 14:58 Dose: 50 mls/hr Insulin Aspart (Novolog) 0 unit SUBCUT QIDACANDBED [facility] PRN Reason: Protocol Last Admin: 05/10/17 17:29 Dose: Not Given Insulin Aspart (Novolog) 0 unit SUBCUT QIDACANDBED [facility] PRN Reason: Protocol Last Admin: 05/11/17 14:50 Dose: Not Given Insulin Detemir (Levemir) 2 unit SUBCUT ONETIME ONE Stop: 05/13/17 12:01 Last Admin: 05/13/17 12:50 Dose: 2 units Methylprednisolone Sodium Succinate (Solu-Medrol) 125 mg IVPUSH ONETIME ONE Stop: 05/10/17 11:12 Last Admin: 05/10/17 11:33 Dose: 125 mg Methylprednisolone Sodium Succinate (Solu-Medrol) 125 mg IVPUSH Q6H [facility] Last Admin: 05/12/17 13:31 Dose: 125 mg Methylprednisolone Sodium Succinate (Solu-Medrol) 80 mg IVPUSH Q8H [facility] Last Admin: 05/13/17 12:47 Dose: 80 mg Metoprolol Succinate (Toprol Xl) 50 mg PO DAILY [facility] Stop: 05/11/17 11:00 Last Admin: 05/11/17 10:29 Dose: 50 mg Mometasone Furoate/Formoterol Fumar (Dulera 200-5 Mcg) 2 puff IH BIDRT [facility] Potassium Chloride (Potassium Chloride) 20 meq PO ONETIME ONE Stop: 05/11/17 11:10 Last Admin: 05/11/17 12:35 Dose: 20 meq Tiotropium [place] (Spiriva Handihaler) 18 mcg INH DAILYRT [facility] - Exam Quality Assessment: Supplemental Oxygen, DVT Prophylaxis General: Alert, Oriented, Cooperative, No Acute Distress HEENT: Pupils Equal, Pupils Reactive, EOMI Neck: Supple, Trachea Midline Lungs: Normal Respiratory Effort, Decreased Breath Sounds, Rhonchi, Wheezing Cardiovascular: Regular Rate, Regular Rhythm GI/Abdominal Exam: Normal Bowel Sounds, Soft, Non-Tender, No Organomegaly, No Distention (Male) Exam: Deferred Back Exam: Normal Inspection Extremities: Normal Inspection Skin: Warm Neurological: No New Focal Deficit Psy/Mental Status: Alert, Normal Affect, Normal Mood - Problem List & Annotations (1) CAD (coronary artery disease) SNOMED Code(s): 32987405 Code(s): I25.10 - ATHSCL HEART DISEASE OF [place] CORONARY ARTERY W/O ANG PCTRS Status: Acute Current Visit: Yes (2) Diabetes mellitus SNOMED Code(s): 27705741 Code(s): E11.9 - TYPE 2 DIABETES MELLITUS WITHOUT COMPLICATIONS Status: Acute Current Visit: Yes (3) Hypoxia SNOMED Code(s): 409639565 Code(s): R09.02 - HYPOXEMIA Status: Acute Current Visit: Yes (4) Pneumonia SNOMED Code(s): 985960932 Code(s): J18.9 - PNEUMONIA, UNSPECIFIED ORGANISM Status: Acute Current Visit: Yes Qualifiers: Pneumonia type: due to unspecified organism Laterality: left Lung location: lower lobe of lung Qualified Code(s): J18.1 - Lobar pneumonia, unspecified organism (5) CHF, Congestive heart failure SNOMED Code(s): 93133984 Code(s): I50.9 - HEART FAILURE, UNSPECIFIED Status: Acute Current Visit: No (6) COLD, Chronic obstructive lung disease SNOMED Code(s): 46909310 Code(s): J44.9 - CHRONIC OBSTRUCTIVE PULMONARY DISEASE, UNSPECIFIED Status : Acute Current Visit: No (7) Hypertension SNOMED Code(s): 84583029 Code(s): I10 - ESSENTIAL (PRIMARY) HYPERTENSION Status: Acute Current Visit: Yes (8) Hyperlipidemia SNOMED Code(s): 94306191 Code(s): E78.5 - HYPERLIPIDEMIA, UNSPECIFIED Status: Acute Current Visit : Yes - Problem List Review Problem List Initiated/Reviewed/Updated: Yes - My Orders Last 24 Hours: My Active Orders 05/13/17 14:04 guaiFENesin [Mucinex] 1,200 mg PO Q12HR PRN 05/14/17 00:00 methylPREDNISolone Sod Succ [Solu-MEDROL] 40 mg IVPUSH Q12H 05/14/17 13:00 CXR [Chest 2V] [CR] Routine - Plan Plan:: Impression: LLE PNA, unspecified IV Steroids Hypoxia, history of 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 Nebs Home meds Daily labs SS insulin Nicotine replacement DVT/GI prophylaxis SW/PT/OT LOS>96 hours with gradual response to treatment for PNA and hypoxia.
[2017-05-14] MEDS: methylPREDNISolone Sodium Succinate 40 MG/1 ML SDV IVPUSH SCH (13:08)
[2017-05-14] MEDS: Simvastatin 40 MG Tab PO SCH (22:29)
[2017-05-15] MEDS: methylPREDNISolone Sodium Succinate 40 MG/1 ML SDV IVPUSH SCH ×2 (00:24→13:06)
[2017-05-15] MEDS: Insulin Aspart 100 Units/ML 3 ML Pen SUBCUT SCH ×6 (06:56→21:39)
[2017-05-15] MEDS: Levofloxacin/Dextrose 5%-Water 750 MG in Premix Bag 1 BAG IV SCH (08:12)
[2017-05-15] MEDS: Hypromellose 0.5% Ophth Soln 15 ML Bottle EYEBOTH SCH ×2 (08:13→21:36)
[2017-05-15] MEDS: Nicotine 21 MG/24 Hr Patch TRDERM SCH (08:13)
[2017-05-15] MEDS: guaiFENesin 600 MG Tab.ER PO PRN (08:14)
[2017-05-15] MEDS: Aspirin 81 MG Tab.Chew PO SCH (08:15)
[2017-05-15] MEDS: Multivitamins,Therapeutic Tab PO SCH (08:15)
[2017-05-15] MEDS: Fish Oil/Omega-3 Fatty Acids 1 Gm Cap PO SCH (08:15)
[2017-05-15] MEDS: Metoprolol Succinate 50 MG Tab.ER PO SCH (08:15)
[2017-05-15] MEDS: Patient's Own Medication 1 Each EYEBOTH SCH ×2 (08:17→21:36)
[2017-05-15] MEDS: Tiotropium Inhaler 18 MCG Inhalation Powder Cap Kit of 5 INH SCH (08:44)
[2017-05-15] MEDS: Albuterol/Ipratropium 3.0-0.5 MG/3 ML Neb Soln NEB PRN ×2 (08:44→20:17)
[2017-05-15] MEDS: Formoterol/Mometasone 200-5 MCG 8.8 GM Inhaler IH SCH ×2 (08:44→20:16)
[2017-05-15] MEDS ORDERED: Insulin Detemir 100 Units/ML 3 ML Pen SUBCUT ONE (13:00)
--- NOTE | 2017-05-15 18:45 | PCM.PN ---
- General Info Date of Service: 05/15/17 Admission Dx/Problem (Free Text): Admission Diagnosis/Problem Admission Diagnosis/Problem Pneumonia Functional Status: Reports: Pain Controlled, Tolerating Diet, Ambulating, Urinating. Denies: New Symptoms - Review of Systems General: Reports: Weakness, Malaise. Denies: Fever, Fatigue, Chills, Night Sweats HEENT: Reports: No Symptoms. Denies: Contact Lenses, Dysphasia, Ear Pain, Eye Pain, Headaches, Sore Throat, Visual Changes Pulmonary: Reports: Cough. Denies: Shortness of Breath, Sputum, Wheezing Cardiovascular: Reports: No Symptoms. Denies: Chest Pain, Palpitations, Dyspnea on Exertion, Edema Gastrointestinal: Reports: No Symptoms. Denies: Abdominal Pain, Constipation, Decreased Appetite, Diarrhea, Nausea, Vomiting Genitourinary: Reports: No Symptoms. Denies: Dysuria, Frequency, Burning, Pain , Urgency Musculoskeletal: Reports: No Symptoms. Denies: Neck Pain, Shoulder Pain, Arm Pain, Hand Pain, Back Pain Skin: Reports: No Symptoms Neurological: Reports: No Symptoms Psychiatric: Reports: No Symptoms - Patient Data Vitals - Most Recent: Last Vital Signs Temp 99.3 F 05/15/17 15:39 Pulse 73 05/15/17 16:17 Resp 18 05/15/17 15:39 BP 125/66 05/15/17 15:39 Pulse Ox 93 L 05/15/17 16:17 Weight - Most Recent: 170 lb 11.2 oz I&O - Last 24 Hours: Intake & Output 05/15/17 05/15/17 05/15/17 06:59 14:59 22:59 Intake Total 400 420 720 Balance 400 420 720 Lab Results Last 24 Hours: Laboratory Results - last 24 hr 05/14/17 05/15/17 05/15/17 Range/Units 22:26 06:49 12:30 Glucose 427 H (83-115) mg/dL POC Glucose 328 H 257 H (83-110) mg/dL 05/15/17 05/15/17 Range/Units 15:30 17:30 Glucose 466 H (83-115) mg/dL POC Glucose 365 H (83-110) mg/dL Med Orders - Current: Current Medications Acetaminophen (Tylenol) 650 mg PO Q4H PRN PRN Reason: Pain Last Admin: 05/12/17 00:09 Dose: 650 mg Albuterol (Proventil Neb Soln) 2.5 mg NEB Q4H PRN PRN Reason: Shortness of Breath Last Admin: 05/10/17 23:15 Dose: 2.5 mg Albuterol/Ipratropium (Duoneb 3.0-0.5 Mg/3 Ml) 3 ml NEB QID PRN PRN Reason: Shortness of Breath Last Admin: 05/15/17 08:44 Dose: 3 ml Artificial Tears (Isopto Tears 0.5% Ophth Soln) 0 ml EYEBOTH BID [facility] Last Admin: 05/15/17 08:13 Dose: 1 drop Aspirin (Aspirin) 81 mg PO DAILY [facility] Last Admin: 05/15/17 08:15 Dose: 81 mg Dextrose/Water (Dextrose 50% In Water) 50 ml IVPUSH ASDIRECTED PRN PRN Reason: Hypoglycemia Fish Oil (Fish Oil) 1 gm PO DAILY [facility] Last Admin: 05/15/17 08:15 Dose: 1 gm Guaifenesin (Mucinex) 1,200 mg PO Q12HR PRN PRN Reason: Congestion Last Admin: 05/15/17 08:14 Dose: 1,200 mg Sodium Chloride (Sodium Chloride 0.45%) 1,000 mls @ 75 mls/hr IV ASDIRECTED [facility] Last Admin: 05/12/17 15:34 Dose: 75 mls/hr Insulin Aspart (Novolog) 0 unit SUBCUT QIDACANDBED [facility] PRN Reason: Protocol Last Admin: 05/15/17 18:11 Dose: 10 units Levofloxacin (Levaquin) 750 mg PO Q24H [facility] Metoprolol Succinate (Toprol Xl) 50 mg PO DAILY [facility] Last Admin: 05/15/17 08:15 Dose: 50 mg Mometasone Furoate/Formoterol Fumar (Dulera 200-5 Mcg) 2 puff IH BID [facility] Last Admin: 05/15/17 08:44 Dose: 2 puff Multivitamins (Thera) 1 each PO DAILY [facility] Last Admin: 05/15/17 08:15 Dose: 1 each Nicotine (Habitrol) 21 mg TRDERM DAILY [facility] Last Admin: 05/15/17 08:13 Dose: 21 mg Nitroglycerin (Nitrostat) 0.4 mg SL Q5M PRN PRN Reason: Chest Pain Patient Own Medication (Ptom) 0 each EYEBOTH BID [facility] Last Admin: 05/15/17 08:17 Dose: 1 each Prednisone (Prednisone) 40 mg PO DAILY [facility] Stop: 05/18/17 09:01 Simvastatin (Zocor) 40 mg PO BEDTIME [facility] Last Admin: 05/14/17 22:29 Dose: 40 mg Sodium Chloride (Saline Flush) 10 ml FLUSH ASDIRECTED PRN PRN Reason: Keep Vein Open Last Admin: 05/10/17 11:35 Dose: 10 ml Tiotropium [place] (Spiriva Handihaler) 18 mcg INH DAILY [facility] Last Admin: 05/15/17 08:44 Dose: 1 cap Discontinued Medications Albuterol/Ipratropium (Duoneb 3.0-0.5 Mg/3 Ml) 3 ml NEB ONETIME ONE Stop: 05/10/17 11:12 Last Admin: 05/10/17 11:25 Dose: 3 ml Brimonidine Tartrate (Alphagan 0.2% [facility] Soln) 0 ml EYEBOTH BID [facility] Last Admin: 05/12/17 08:09 Dose: 1 drop Furosemide (Lasix) 20 mg IVPUSH NOW ONE Stop: 05/11/17 11:09 Last Admin: 05/11/17 12:35 Dose: 20 mg Levofloxacin/Dextrose 750 mg/ (Premix) 150 mls @ 100 mls/hr IV ONETIME ONE Stop: 05/10/17 14:30 Last Admin: 05/10/17 13:12 Dose: 100 mls/hr Levofloxacin/Dextrose 750 mg/ (Premix) 150 mls @ 100 mls/hr IV Q48H [facility] Last Admin: 05/12/17 08:10 Dose: 100 mls/hr Sodium Chloride (Sodium Chloride 0.45%) 1,000 mls @ 75 mls/hr IV ASDIRECTED [facility] Last Admin: 05/11/17 06:08 Dose: 75 mls/hr Magnesium Sulfate 4 gm/ Premix 100 mls @ 50 mls/hr IV ONETIME ONE Stop: 05/11/17 12:52 Last Admin: 05/11/17 14:37 Dose: Not Given Magnesium Sulfate 4 gm/ Premix 100 mls @ 50 mls/hr IV ONETIME ONE Stop: 05/11/17 15:14 Last Admin: 05/11/17 14:52 Dose: Not Given Magnesium Sulfate (Magnesium Sulfate 4 Gm In Water 100 Ml) Confirm Administered Dose 100 mls @ as directed .ROUTE .STK-MED ONE Stop: 05/11/17 13:14 Last Admin: 05/11/17 13:51 Dose: Not Given Magnesium Sulfate 2 gm/ Premix 50 mls @ 50 mls/hr IV Q1H [facility] Stop: 05/11/17 15:29 Last Admin: 05/11/17 14:58 Dose: 50 mls/hr Levofloxacin/Dextrose 750 mg/ (Premix) 150 mls @ 100 mls/hr IV Q24H [facility] Stop: 05/15/17 11:00 Last Admin: 05/15/17 08:12 Dose: 100 mls/hr Insulin Aspart (Novolog) 0 unit SUBCUT QIDACANDBED [facility] PRN Reason: Protocol Last Admin: 05/10/17 17:29 Dose: Not Given Insulin Aspart (Novolog) 0 unit SUBCUT QIDACANDBED [facility] PRN Reason: Protocol Last Admin: 05/11/17 14:50 Dose: Not Given Insulin Aspart (Novolog) 0 unit SUBCUT QIDACANDBED [facility] PRN Reason: Protocol Last Admin: 05/15/17 18:13 Dose: Not Given Insulin Detemir (Levemir) 2 unit SUBCUT ONETIME ONE Stop: 05/13/17 12:01 Last Admin: 05/13/17 12:50 Dose: 2 units Insulin Detemir (Levemir) 6 unit SUBCUT ONETIME ONE Stop: 05/15/17 13:01 Last Admin: 05/15/17 13:07 Dose: 6 units Methylprednisolone Sodium Succinate (Solu-Medrol) 125 mg IVPUSH ONETIME ONE Stop: 05/10/17 11:12 Last Admin: 05/10/17 11:33 Dose: 125 mg Methylprednisolone Sodium Succinate (Solu-Medrol) 125 mg IVPUSH Q6H [facility] Last Admin: 05/12/17 13:31 Dose: 125 mg Methylprednisolone Sodium Succinate (Solu-Medrol) 80 mg IVPUSH Q8H [facility] Last Admin: 05/13/17 12:47 Dose: 80 mg Methylprednisolone Sodium Succinate (Solu-Medrol) 40 mg IVPUSH Q12H [facility] Last Admin: 05/15/17 13:06 Dose: 40 mg Metoprolol Succinate (Toprol Xl) 50 mg PO DAILY [facility] Stop: 05/11/17 11:00 Last Admin: 05/11/17 10:29 Dose: 50 mg Mometasone Furoate/Formoterol Fumar (Dulera 200-5 Mcg) 2 puff IH BIDRT [facility] Potassium Chloride (Potassium Chloride) 20 meq PO ONETIME ONE Stop: 05/11/17 11:10 Last Admin: 05/11/17 12:35 Dose: 20 meq Tiotropium [place] (Spiriva Handihaler) 18 mcg INH DAILYRT [facility] - Exam Quality Assessment: Supplemental Oxygen, DVT Prophylaxis General: Alert, Oriented, Cooperative, No Acute Distress HEENT: Pupils Equal, Pupils Reactive, EOMI, Mucous Membr. Moist/[place] Neck: Supple, Trachea Midline. No: No JVD, No Thyromegaly Lungs: Normal Respiratory Effort, Decreased Breath Sounds, Rhonchi (LLQ), Wheezing Cardiovascular: Regular Rate, Regular Rhythm GI/Abdominal Exam: Normal Bowel Sounds, Soft, Non-Tender, No Organomegaly, No Distention, No Abnormal Bruit, No Mass, Pelvis Stable (Male) Exam: Deferred Back Exam: Normal Inspection Extremities: Normal Inspection, Non-Tender, No Pedal Edema, Normal Capillary Refill Peripheral Pulses: 2+: Posterior Tibial (L), Posterior Tibial (R), Dorsalis Pedis (L), Dorsalis Pedis (R), 3+: Radial (L), Radial (R) Skin: Warm, Dry, Intact Neurological: No New Focal Deficit Psy/Mental Status: Alert, Normal Affect, Normal Mood - Problem List & Annotations (1) CAD (coronary artery disease) SNOMED Code(s): 93271808 Code(s): I25.10 - ATHSCL HEART DISEASE OF [place] CORONARY ARTERY W/O ANG PCTRS Status: Acute Current Visit: Yes Qualifiers: Coronary Disease-Associated Artery/Lesion type: unspecified vessel or lesion type [place] vs. 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: without mcc use Qualified Code(s): E11.8 - Type 2 diabetes mellitus with unspecified complications (3) Hyperlipidemia SNOMED Code(s): 69746245 Code(s): E78.5 - HYPERLIPIDEMIA, UNSPECIFIED Status: Acute Priority: Low Current Visit: Yes Qualifiers: Hyperlipidemia type: unspecified Qualified Code(s): E78.5 - Hyperlipidemia , unspecified (4) Hypertension SNOMED Code(s): 54753368 Code(s): I10 - ESSENTIAL (PRIMARY) HYPERTENSION Status: Acute Priority: Medium Current Visit: Yes Qualifiers: Hypertension type: unspecified Qualified Code(s): I10 - Essential (primary ) hypertension (5) Hypoxia SNOMED Code(s): 126647843 Code(s): R09.02 - HYPOXEMIA Status: Acute Priority: High Current Visit : Yes (6) Pneumonia SNOMED Code(s): 569669497 Code(s): J18.9 - PNEUMONIA, UNSPECIFIED ORGANISM Status: Acute Priority: High Current Visit: Yes Qualifiers: Pneumonia type: due to unspecified organism Laterality: left Lung location: lower lobe of lung Qualified Code(s): J18.1 - Lobar pneumonia, unspecified organism (7) CHF, Congestive heart failure SNOMED Code(s): 79606181 Code(s): I50.9 - HEART FAILURE, UNSPECIFIED Status: Acute Priority: Low Current Visit: No (8) COLD, Chronic obstructive lung disease SNOMED Code(s): 28485338 Code(s): J44.9 - CHRONIC OBSTRUCTIVE PULMONARY DISEASE, UNSPECIFIED Status : Acute Priority: Low Current Visit: Yes - Problem List Review Problem List Initiated/Reviewed/Updated: Yes - Plan Plan:: Impression: LLE PNA, unspecified IV Steroids Hypoxia, 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 Nebs Home meds Daily labs SS insulin - High dose Nicotine replacement DVT/GI prophylaxis SW/PT/OT LOS>96 hours with gradual response to treatment for PNA and hypoxia.
[2017-05-15] MEDS: Simvastatin 40 MG Tab PO SCH (21:36)
[2017-05-15] MEDS: Insulin Detemir 100 Units/ML 3 ML Pen SUBCUT SCH (21:37)
[2017-05-16] MEDS: Multivitamins,Therapeutic Tab PO SCH (09:22)
[2017-05-16] MEDS: Aspirin 81 MG Tab.Chew PO SCH (09:22)
[2017-05-16] MEDS: Levofloxacin 750 MG Tab PO SCH (09:22)
[2017-05-16] MEDS: Fish Oil/Omega-3 Fatty Acids 1 Gm Cap PO SCH (09:22)
[2017-05-16] MEDS: Metoprolol Succinate 50 MG Tab.ER PO SCH (09:23)
[2017-05-16] MEDS: predniSONE 20 MG Tab PO SCH (09:23)
[2017-05-16] MEDS: Patient's Own Medication 1 Each EYEBOTH SCH ×2 (09:24→22:04)
[2017-05-16] MEDS: Insulin Detemir 100 Units/ML 3 ML Pen SUBCUT SCH ×2 (09:24→22:01)
[2017-05-16] MEDS: Hypromellose 0.5% Ophth Soln 15 ML Bottle EYEBOTH SCH ×2 (09:25→22:05)
[2017-05-16] MEDS: Nicotine 21 MG/24 Hr Patch TRDERM SCH (09:26)
[2017-05-16] MEDS: Insulin Aspart 100 Units/ML 3 ML Pen SUBCUT SCH ×4 (09:27→22:04)
[2017-05-16] MEDS: Albuterol/Ipratropium 3.0-0.5 MG/3 ML Neb Soln NEB PRN ×2 (09:30→20:53)
[2017-05-16] MEDS: Formoterol/Mometasone 200-5 MCG 8.8 GM Inhaler IH SCH ×2 (09:31→20:53)
[2017-05-16] MEDS: Tiotropium Inhaler 18 MCG Inhalation Powder Cap Kit of 5 INH SCH (09:31)
--- NOTE | 2017-05-16 11:40 | CR ---
Chest: Two views of the chest are obtained. Comparison: Prior chest x-ray of 05/12/17. Diffuse increased density throughout both sides of the chest are seen. Findings are fairly stable from prior exam. No new pulmonary densities are seen. Heart size appears within normal limits. Previous sternotomy is noted. Bony structures appear within normal limits for the patient's age. Lungs are hyperinflated compatible with emphysematous change. Impression: 1. Findings as described above. No significant change is believed to be present from prior chest x-ray. Diagnostic code #3 I agree with preliminary report issued by [facility] ([facility] report finalized on 05/14/17, 1:16 PM Central Time)
[2017-05-16] MEDS ORDERED: Insulin Aspart 100 Units/ML 3 ML Pen SUBCUT ONE (12:31)
--- NOTE | 2017-05-16 15:35 | PCM.PN ---
- General Info Date of Service: 05/16/17 Functional Status: Reports: Tolerating Diet, Ambulating, Urinating - Review of Systems General: Reports: No Symptoms HEENT: Reports: No Symptoms Pulmonary: Reports: Shortness of Breath, Cough Cardiovascular: Reports: No Symptoms Gastrointestinal: Reports: No Symptoms Genitourinary: Reports: No Symptoms Musculoskeletal: Reports: No Symptoms Skin: Reports: No Symptoms Neurological: Reports: No Symptoms - Patient Data Vitals - Most Recent: Last Vital Signs Temp 36.4 C 05/16/17 11:14 Pulse 85 05/16/17 11:14 Resp 19 05/16/17 11:14 BP 113/63 05/16/17 11:14 Pulse Ox 94 L 05/16/17 15:22 Weight - Most Recent: 74.979 kg I&O - Last 24 Hours: Intake & Output 05/16/17 05/16/17 05/16/17 06:59 14:59 22:59 Intake Total 900 120 Output Total 950 Balance -50 120 Lab Results Last 24 Hours: Laboratory Results - last 24 hr 05/15/17 05/15/17 05/15/17 Range/Units 15:30 17:30 21:08 Glucose 466 H (83-115) mg/dL POC Glucose 365 H 377 H (83-110) mg/dL 05/16/17 05/16/17 Range/Units 06:15 11:44 Glucose 441 H (83-115) mg/dL POC Glucose 171 H (83-110) mg/dL Med Orders - Current: Current Medications Acetaminophen (Tylenol) 650 mg PO Q4H PRN PRN Reason: Pain Last Admin: 05/12/17 00:09 Dose: 650 mg Albuterol (Proventil Neb Soln) 2.5 mg NEB Q4H PRN PRN Reason: Shortness of Breath Last Admin: 05/10/17 23:15 Dose: 2.5 mg Albuterol/Ipratropium (Duoneb 3.0-0.5 Mg/3 Ml) 3 ml NEB QID PRN PRN Reason: Shortness of Breath Last Admin: 05/16/17 09:30 Dose: 3 ml Artificial Tears (Isopto Tears 0.5% Ophth Soln) 0 ml EYEBOTH BID [facility] Last Admin: 05/16/17 09:25 Dose: 1 drop Aspirin (Aspirin) 81 mg PO DAILY [facility] Last Admin: 05/16/17 09:22 Dose: 81 mg Dextrose/Water (Dextrose 50% In Water) 50 ml IVPUSH ASDIRECTED PRN PRN Reason: Hypoglycemia Fish Oil (Fish Oil) 1 gm PO DAILY [facility] Last Admin: 05/16/17 09:22 Dose: 1 gm Glipizide (Glucotrol) 10 mg PO DAILY [facility] Guaifenesin (Mucinex) 1,200 mg PO Q12HR PRN PRN Reason: Congestion Last Admin: 05/15/17 08:14 Dose: 1,200 mg Sodium Chloride (Sodium Chloride 0.45%) 1,000 mls @ 75 mls/hr IV ASDIRECTED [facility] Last Admin: 05/12/17 15:34 Dose: 75 mls/hr Insulin Aspart (Novolog) 0 unit SUBCUT QIDACANDBED [facility] PRN Reason: Protocol Insulin Detemir (Levemir) 10 unit SUBCUT BID [facility] Levofloxacin (Levaquin) 750 mg PO Q24H [facility] Last Admin: 05/16/17 09:22 Dose: 750 mg Metformin HCl (Glucophage) 1,000 mg PO BID [facility] Metoprolol Succinate (Toprol Xl) 50 mg PO DAILY [facility] Last Admin: 05/16/17 09:23 Dose: 50 mg Mometasone Furoate/Formoterol Fumar (Dulera 200-5 Mcg) 2 puff IH BID [facility] Last Admin: 05/16/17 09:31 Dose: 2 puff Multivitamins (Thera) 1 each PO DAILY [facility] Last Admin: 05/16/17 09:22 Dose: 1 each Nicotine (Habitrol) 21 mg TRDERM DAILY [facility] Last Admin: 05/16/17 09:26 Dose: 21 mg Nitroglycerin (Nitrostat) 0.4 mg SL Q5M PRN PRN Reason: Chest Pain Patient Own Medication (Ptom) 0 each EYEBOTH BID [facility] Last Admin: 05/16/17 09:24 Dose: 1 each Prednisone (Prednisone) 40 mg PO DAILY [facility] Stop: 05/18/17 09:01 Last Admin: 05/16/17 09:23 Dose: 40 mg Prednisone (Prednisone) 30 mg PO DAILY [facility] Stop: 05/21/17 09:01 Prednisone (Prednisone) 20 mg PO DAILY [facility] Stop: 05/24/17 09:01 Prednisone (Prednisone) 10 mg PO DAILY [facility] Stop: 05/27/17 09:01 Saxagliptin Hydrochloride (Onglyza) 5 mg PO DAILY [facility] Simvastatin (Zocor) 40 mg PO BEDTIME [facility] Last Admin: 05/15/17 21:36 Dose: 40 mg Sodium Chloride (Saline Flush) 10 ml FLUSH ASDIRECTED PRN PRN Reason: Keep Vein Open Last Admin: 05/10/17 11:35 Dose: 10 ml Tiotropium [place] (Spiriva Handihaler) 18 mcg INH DAILY [facility] Last Admin: 05/16/17 09:31 Dose: 1 cap Discontinued Medications Albuterol/Ipratropium (Duoneb 3.0-0.5 Mg/3 Ml) 3 ml NEB ONETIME ONE Stop: 05/10/17 11:12 Last Admin: 05/10/17 11:25 Dose: 3 ml Brimonidine Tartrate (Alphagan 0.2% Ophth Soln) 0 ml EYEBOTH BID [facility] Last Admin: 05/12/17 08:09 Dose: 1 drop Furosemide (Lasix) 20 mg IVPUSH NOW ONE Stop: 05/11/17 11:09 Last Admin: 05/11/17 12:35 Dose: 20 mg Levofloxacin/Dextrose 750 mg/ (Premix) 150 mls @ 100 mls/hr IV ONETIME ONE Stop: 05/10/17 14:30 Last Admin: 05/10/17 13:12 Dose: 100 mls/hr Levofloxacin/Dextrose 750 mg/ (Premix) 150 mls @ 100 mls/hr IV Q48H [facility] Last Admin: 05/12/17 08:10 Dose: 100 mls/hr Sodium Chloride (Sodium Chloride 0.45%) 1,000 mls @ 75 mls/hr IV ASDIRECTED [facility] Last Admin: 05/11/17 06:08 Dose: 75 mls/hr Magnesium Sulfate 4 gm/ Premix 100 mls @ 50 mls/hr IV ONETIME ONE Stop: 05/11/17 12:52 Last Admin: 05/11/17 14:37 Dose: Not Given Magnesium Sulfate 4 gm/ Premix 100 mls @ 50 mls/hr IV ONETIME ONE Stop: 05/11/17 15:14 Last Admin: 05/11/17 14:52 Dose: Not Given Magnesium Sulfate (Magnesium Sulfate 4 Gm In Water 100 Ml) Confirm Administered Dose 100 mls @ as directed .ROUTE .STK-MED ONE Stop: 05/11/17 13:14 Last Admin: 05/11/17 13:51 Dose: Not Given Magnesium Sulfate 2 gm/ Premix 50 mls @ 50 mls/hr IV Q1H [facility] Stop: 05/11/17 15:29 Last Admin: 05/11/17 14:58 Dose: 50 mls/hr Levofloxacin/Dextrose 750 mg/ (Premix) 150 mls @ 100 mls/hr IV Q24H [facility] Stop: 05/15/17 11:00 Last Admin: 05/15/17 08:12 Dose: 100 mls/hr Insulin Aspart (Novolog) 0 unit SUBCUT QIDACANDBED [facility] PRN Reason: Protocol Last Admin: 05/10/17 17:29 Dose: Not Given Insulin Aspart (Novolog) 0 unit SUBCUT QIDACANDBED [facility] PRN Reason: Protocol Last Admin: 05/11/17 14:50 Dose: Not Given Insulin Aspart (Novolog) 0 unit SUBCUT QIDACANDBED [facility] PRN Reason: Protocol Last Admin: 05/16/17 12:45 Dose: Not Given Insulin Aspart (Novolog) 0 unit SUBCUT QIDACANDBED [facility] PRN Reason: Protocol Last Admin: 05/15/17 18:13 Dose: Not Given Insulin Aspart (Novolog) 0 unit SUBCUT ONETIME ONE PRN Reason: Protocol Stop: 05/16/17 12:32 Last Admin: 05/16/17 12:43 Dose: 15 units Insulin Detemir (Levemir) 2 unit SUBCUT ONETIME ONE Stop: 05/13/17 12:01 Last Admin: 05/13/17 12:50 Dose: 2 units Insulin Detemir (Levemir) 6 unit SUBCUT ONETIME ONE Stop: 05/15/17 13:01 Last Admin: 05/15/17 13:07 Dose: 6 units Insulin Detemir (Levemir) 6 unit SUBCUT BID [facility] Last Admin: 05/16/17 09:24 Dose: 6 units Methylprednisolone Sodium Succinate (Solu-Medrol) 125 mg IVPUSH ONETIME ONE Stop: 05/10/17 11:12 Last Admin: 05/10/17 11:33 Dose: 125 mg Methylprednisolone Sodium Succinate (Solu-Medrol) 125 mg IVPUSH Q6H [facility] Last Admin: 05/12/17 13:31 Dose: 125 mg Methylprednisolone Sodium Succinate (Solu-Medrol) 80 mg IVPUSH Q8H [facility] Last Admin: 05/13/17 12:47 Dose: 80 mg Methylprednisolone Sodium Succinate (Solu-Medrol) 40 mg IVPUSH Q12H [facility] Last Admin: 05/15/17 13:06 Dose: 40 mg Metoprolol Succinate (Toprol Xl) 50 mg PO DAILY [facility] Stop: 05/11/17 11:00 Last Admin: 05/11/17 10:29 Dose: 50 mg Mometasone Furoate/Formoterol Fumar (Dulera 200-5 Mcg) 2 puff IH BIDRT [facility] Potassium Chloride (Potassium Chloride) 20 meq PO ONETIME ONE Stop: 05/11/17 11:10 Last Admin: 05/11/17 12:35 Dose: 20 meq Tiotropium [place] (Spiriva Handihaler) 18 mcg INH DAILYRT [facility] - Exam Quality Assessment: Supplemental Oxygen, DVT Prophylaxis General: Alert, Oriented, Cooperative, No Acute Distress HEENT: Pupils Equal, Pupils Reactive, EOMI Neck: Trachea Midline, No JVD Lungs: Normal Respiratory Effort, Decreased Breath Sounds, Wheezing Cardiovascular: Regular Rate GI/Abdominal Exam: Normal Bowel Sounds, Soft, Non-Tender, No Organomegaly, No Distention (Male) Exam: Deferred Back Exam: Normal Inspection Extremities: Normal Inspection, Normal Capillary Refill Skin: Warm Neurological: No New Focal Deficit Psy/Mental Status: Alert, Normal Affect, Normal Mood - Problem List & Annotations (1) CAD (coronary artery disease) SNOMED Code(s): 54661782 Code(s): I25.10 - ATHSCL HEART DISEASE OF [place] CORONARY ARTERY W/O ANG PCTRS Status: Acute Current Visit: Yes Qualifiers: Coronary Disease-Associated Artery/Lesion type: unspecified vessel or lesion type [place] vs. transplanted heart: [place] heart Associated angina: angina presence unspecified Qualified Code(s): I25.10 - Atherosclerotic heart disease of [place] coronary artery without angina pectoris (2) Diabetes mellitus SNOMED Code(s): 14741760 Code(s): E11.9 - TYPE 2 DIABETES MELLITUS WITHOUT COMPLICATIONS Status: Acute Priority: High Current Visit: Yes Qualifiers: Diabetes mellitus type: type 2 Diabetes mellitus complication status: with unspecified complications Diabetes mellitus skilled nursing insulin use: without skilled nursing use Qualified Code(s): E11.8 - Type 2 diabetes mellitus with unspecified complications (3) Hypoxia SNOMED Code(s): 256084570 Code(s): R09.02 - HYPOXEMIA Status: Acute Priority: High Current Visit : Yes (4) Pneumonia SNOMED Code(s): 671125923 Code(s): J18.9 - PNEUMONIA, UNSPECIFIED ORGANISM Status: Acute Priority: High Current Visit: Yes Qualifiers: Pneumonia type: due to unspecified organism Laterality: left Lung location: lower lobe of lung Qualified Code(s): J18.1 - Lobar pneumonia, unspecified organism (5) CHF, Congestive heart failure SNOMED Code(s): 11339306 Code(s): I50.9 - HEART FAILURE, UNSPECIFIED Status: Acute Priority: Low Current Visit: No (6) COLD, Chronic obstructive lung disease SNOMED Code(s): 64189717 Code(s): J44.9 - CHRONIC OBSTRUCTIVE PULMONARY DISEASE, UNSPECIFIED Status : Acute Priority: Low Current Visit: Yes (7) Hypertension SNOMED Code(s): 88143649 Code(s): I10 - ESSENTIAL (PRIMARY) HYPERTENSION Status: Acute Priority: Medium Current Visit: Yes Qualifiers: Hypertension type: unspecified Qualified Code(s): I10 - Essential (primary ) hypertension (8) Hyperlipidemia SNOMED Code(s): 25013473 Code(s): E78.5 - HYPERLIPIDEMIA, UNSPECIFIED Status: Acute Priority: Low Current Visit: Yes Qualifiers: Hyperlipidemia type: unspecified Qualified Code(s): E78.5 - Hyperlipidemia , unspecified - Problem List Review Problem List Initiated/Reviewed/Updated: Yes - My Orders Last 24 Hours: My Active Orders 05/16/17 09:00 Levofloxacin [Levaquin] 750 mg PO Q24H predniSONE 40 mg PO DAILY 05/16/17 17:00 Insulin Aspart [NovoLOG] See Protocol SUBCUT QIDACANDBED 05/16/17 21:00 Insulin Detemir [Levemir] 10 unit SUBCUT BID metFORMIN [Glucophage] 1,000 mg PO BID 05/17/17 09:00 Saxagliptin [Onglyza] 5 mg PO DAILY glipiZIDE [Glucotrol] 10 mg PO DAILY 05/19/17 09:00 predniSONE 30 mg PO DAILY 12/04/17 09:00 predniSONE 20 mg PO DAILY 05/25/17 09:00 predniSONE 10 mg PO DAILY - Plan Plan:: Impression: LLE PNA, unspecified IV Steroids Hypoxia, history of COPD 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 Nebs Home meds Daily labs SS insulin - High dose Nicotine replacement DVT/GI prophylaxis SW/PT/OT LOS>96 hours with gradual response to treatment for PNA and hypoxia. DC 05/17.
[2017-05-16] MEDS ORDERED: Temazepam 7.5 MG Cap PO PRN (15:37)
[2017-05-16] MEDS: guaiFENesin/Dextromethorphan 100-10 MG/5 ML Soln 5 ML Cup PO SCH ×2 (17:05→22:01)
[2017-05-16] MEDS: Simvastatin 40 MG Tab PO SCH (22:00)
[2017-05-16] MEDS: metFORMIN 500 MG Tab PO SCH (22:01)
[2017-05-17] MEDS: guaiFENesin/Dextromethorphan 100-10 MG/5 ML Soln 5 ML Cup PO SCH ×2 (04:45→09:03)
[2017-05-17] MEDS: Insulin Aspart 100 Units/ML 3 ML Pen SUBCUT SCH ×2 (08:05→11:35)
[2017-05-17] MEDS: Hypromellose 0.5% Ophth Soln 15 ML Bottle EYEBOTH SCH (08:50)
[2017-05-17] MEDS: Insulin Detemir 100 Units/ML 3 ML Pen SUBCUT SCH (08:51)
[2017-05-17] MEDS: Nicotine 21 MG/24 Hr Patch TRDERM SCH (08:53)
[2017-05-17] MEDS: Multivitamins,Therapeutic Tab PO SCH (08:54)
[2017-05-17] MEDS: Aspirin 81 MG Tab.Chew PO SCH (08:55)
[2017-05-17] MEDS: Levofloxacin 750 MG Tab PO SCH (08:55)
[2017-05-17] MEDS: Fish Oil/Omega-3 Fatty Acids 1 Gm Cap PO SCH (08:55)
[2017-05-17] MEDS: predniSONE 20 MG Tab PO SCH (08:55)
[2017-05-17] MEDS: metFORMIN 500 MG Tab PO SCH (08:55)
[2017-05-17] MEDS: Metoprolol Succinate 50 MG Tab.ER PO SCH (08:56)
[2017-05-17] MEDS: Patient's Own Medication 1 Each EYEBOTH SCH (08:56)
[2017-05-17 08:57] VITALS: BP 109/55
[2017-05-17] MEDS ORDERED: Saxagliptin 5 MG Tab PO SCH (09:00)
[2017-05-17] MEDS: Tiotropium Inhaler 18 MCG Inhalation Powder Cap Kit of 5 INH SCH (09:39)
[2017-05-17] MEDS: Formoterol/Mometasone 200-5 MCG 8.8 GM Inhaler IH SCH (09:39)
[2017-05-17] MEDS: Albuterol/Ipratropium 3.0-0.5 MG/3 ML Neb Soln NEB PRN (09:39)
[2017-05-17] MEDS ORDERED: Magnesium Oxide 400 MG Tab PO SCH (11:30)
--- NOTE | 2017-05-17 11:34 | PCM.DCSUM1 ---
Discharge Summary - Hospital Course Free Text/Narrative:: The patient presents to ED with a productive cough and shortness of breath. This has been going on for about 1 week. He has a history of pneumonia with abscess in the left lung over 1 year ago. He sees a mechanical systems design engineer, Dr. Joiner, since that time. He had a chest CT last week and his mechanical systems design engineer said it looked better then a week ago. He denies a fever but he has a productive cough. He has shortness of breath and when we brought him back his oxygen saturations were 68% on room air. He has COPD and CHF by hx. There has not been any changes to his medications after seeing his mechanical systems design engineer. He wears oxygen 2L by [place] at night. He denies chest pain. He has no abdominal pain, nausea and vomiting. Hospitalist service is consulted for admission for PNA, COPD exacerbation. Course of hospital stay: Patient was hydrated, treated with IV levaquin and IV solu-medrol, tapering course. Serial CXR's were obtained, x 3 with reports negative for pneumonia. IV levaquin was stopped. He remained on IV solu-medrol and aggressive RT treatments. Further evaluation was with negative strep pneumonia, mycoplasma and respiratory viral panel. BC were negative. UA was negative in ED as was troponin. CRP initially was 26.5 and down to 6 at time of discharge. Blood sugars were significantly elevated averaging around 300's but did go up as high as 500's. A1C was 7.2. He was started on sliding scale insulin , changed to high dose sliding scale, levemir was increased and sugars trended down to the 200's as steroids were tapered as well. Supplemental oxygen was slowly titrated down also. He worked with PT/OT, did well. He will be discharged home with family to assist. He is to follow up with PCP, Dr. Coyle within one week of discharge. He is scheduled to see Foundation Engineer again next month for follow up. - Discharge Data Discharge Date: 05/17/17 (admit date 05/10/17) Discharge Disposition: Home, Self-Care 01 Condition: Fair - Discharge Diagnosis/Problem(s) (1) COLD, Chronic obstructive lung disease SNOMED Code(s): 91256752 ICD Code: J44.9 - CHRONIC OBSTRUCTIVE PULMONARY DISEASE, UNSPECIFIED Status : Acute Priority: High (2) Pneumonia SNOMED Code(s): 732225544 ICD Code: J18.9 - PNEUMONIA, UNSPECIFIED ORGANISM Status: Acute Priority : High Qualifiers: Pneumonia type: due to unspecified organism Laterality: left Lung location: lower lobe of lung Qualified Code(s): J18.1 - Lobar pneumonia, unspecified organism (3) Hypoxia SNOMED Code(s): 479353277 ICD Code: R09.02 - HYPOXEMIA Status: Chronic Priority: High (4) Diabetes mellitus SNOMED Code(s): 69277109 ICD Code: E11.9 - TYPE 2 DIABETES MELLITUS WITHOUT COMPLICATIONS Status: Chronic Priority: High Qualifiers: Diabetes mellitus type: type 2 Diabetes mellitus complication status: with unspecified complications Diabetes mellitus long term care phlebotomist insulin use: without mcfp use Qualified Code(s): E11.8 - Type 2 diabetes mellitus with unspecified complications (5) CAD (coronary artery disease) SNOMED Code(s): 49994885 ICD Code: I25.10 - ATHSCL HEART DISEASE OF [place] CORONARY ARTERY W/O ANG PCTRS Status: Chronic Priority: Low Qualifiers: Coronary Disease-Associated Artery/Lesion type: unspecified vessel or lesion type [place] vs. transplanted heart: [place] heart Associated angina: angina presence unspecified Qualified Code(s): I25.10 - Atherosclerotic heart disease of [place] coronary artery without angina pectoris (6) Hypertension SNOMED Code(s): 75014180 ICD Code: I10 - ESSENTIAL (PRIMARY) HYPERTENSION Status: Chronic Priority : Low Qualifiers: Hypertension type: unspecified Qualified Code(s): I10 - Essential (primary ) hypertension (7) Hyperlipidemia SNOMED Code(s): 64584786 ICD Code: E78.5 - HYPERLIPIDEMIA, UNSPECIFIED Status: Chronic Priority: Low Qualifiers: Hyperlipidemia type: unspecified Qualified Code(s): E78.5 - Hyperlipidemia , unspecified - Patient Summary/Data Operative Procedure(s) Performed: None Complications: None Consults: Consultations 05/10/17 16:10 Consult to Physical Therapy [PT Evaluation and Treatment] [CONS] Routine Consult to Aircraft Tool Maker [CONS] Routine 05/10/17 16:11 Consult to Pulmonary Rehabilitation [CONS] Routine 05/10/17 16:12 Consult to Occupational Therapy [OT Evaluation and Treatment] [CONS] Routine 05/12/17 12:22 Consult to Dietary [Consult to Clinical Lab Scientist] [CONS] Routine Labs Pending at D/C: None Recommended Follow-up Testing/Procedures: Patient DC instructions: Home O2:oxygen at 2 liters per nasal cannula continuously Discuss updating immunizations and diabetic education when you go to visit Dr. Coyle: no tdap or ppsv 23 , pcv 13 or 2017 flu in thor. Check blood sugars before meals and at bedtime- taker record into follow up appointments Daily weight. Keep a record for your doctor. Pulmonary rehab as outpatient. The pulmonary rehab dept will follow-up with you. Follow up with Dr. Coyle, PCP within one week of discharge. Planned Operative Procedure(s) after DC: None Hospital Course: As above - Patient Instructions Diet: Heart Healthy Diet, Diabetic Diet Activity: As Tolerated Showering/Bathing: May Shower Notify Provider of: Fever, Increased Pain, Nausea and/or Vomiting (worsening shortness of breath, chest pain, dizziness, swelling to lower extremities. ) - Discharge Plan Prescriptions/Med Rec: guaiFENesin [Mucinex] 1,200 mg PO Q12HR PRN #60 tab.er PRN Reason: Congestion Insulin Detemir [Levemir] 10 unit SUBCUT BID #1 pen Magnesium Oxide 400 mg PO BID #60 tablet Nicotine [Habitrol] 21 mg TRDERM DAILY #30 patch Prednisone [IJD: predniSONE] 20 mg PO DAILY #3 tablet Prednisone [IJD: predniSONE] 40 mg PO DAILY #6 tablet predniSONE 10 mg PO DAILY #3 tablet predniSONE 30 mg PO DAILY #9 tablet Home Medications: Home Meds Aspirin [Children's Aspirin] 81 mg PO DAILY 04/28/14 [History] Losartan [Cozaar] 25 mg PO DAILY 04/28/14 [History] Metoprolol Succinate [Toprol XL] 50 mg PO DAILY 04/28/14 [History] Multivitamin [Multi-Vitamin Daily] 1 tab PO DAILY 04/28/14 [History] [place]-3 Fatty Acids [[place]-3] 1,000 mg PO DAILY 04/28/14 [History] Simvastatin [Zocor] 40 mg PO BEDTIME 04/28/14 [History] SitaGLIPtin [Januvia] 100 mg PO DAILY 04/28/14 [History] metFORMIN HCl [Fortamet] 1,000 mg PO BID 04/28/14 [History] Acetaminophen [Tylenol] 500 mg PO DAILY PRN 06/10/14 [History] Acetaminophen [Tylenol Extra Strength] 500 mg PO Q4HR PRN 05/10/17 [History] Albuterol [IJD: Albuterol HFA] 2 puff INH ASDIRECTED PRN 05/10/17 [History] Albuterol [Proventil Neb Soln] 2.5 mg NEB ASDIRECTED PRN 05/10/17 [History] Brimonidine [Alphagan P 0.15% Ophth Soln] 1 drop EYEBOTH BID 05/10/17 [History] Carboxymethylcellulos/Glycerin [Eq Lubricating Eye Drops] 1 drop EYEBOTH BID [History] Fluticasone/Salmeterol [Advair 250-50 Diskus] 1 puff INH BID 05/10/17 [History] Nitroglycerin [Nitrostat] 0.4 mg SL Q5M PRN 05/10/17 [History] Tiotropium [Spiriva Handihaler] 1 cap INH DAILY 05/10/17 [History] glipiZIDE [Glucotrol] 10 mg PO DAILY 05/10/17 [History] Insulin Detemir [Levemir] 10 unit SUBCUT BID #1 pen 05/17/17 [Rx] Magnesium Oxide 400 mg PO BID #60 tablet 05/17/17 [Rx] Nicotine [Habitrol] 21 mg TRDERM DAILY #30 patch 05/17/17 [Rx] Prednisone [IJD: predniSONE] 20 mg PO DAILY #3 tablet 05/17/17 [Rx] Prednisone [IJD: predniSONE] 40 mg PO DAILY #6 tablet 05/17/17 [Rx] guaiFENesin [Mucinex] 1,200 mg PO Q12HR PRN #60 tab.er 05/17/17 [Rx] predniSONE 10 mg PO DAILY #3 tablet 05/17/17 [Rx] predniSONE 30 mg PO DAILY #9 tablet 05/17/17 [Rx] Patient Handouts: Coronary Artery Disease, Male, Type 2 Diabetes Mellitus, Adult, Smoking Hazards, Metoprolol extended-release tablets, Smoking Cessation, Tips for Success, Heart Failure, [id number], Aspirin, ASA oral tablets, Community-Acquired Pneumonia, Adult, [id number] Forms: ED Department Discharge Referrals: Moo Coyle MD [Primary Care Provider] - (Please follow up with Dr. Coyle within one week on MondayMay 23 at 11:30 AM.) - Discharge Summary/Plan Comment DC Time >30 min.: Yes (40 min) - General Info Date of Service: 05/17/17 Admission Dx/Problem (Free Text: Admission Diagnosis/Problem Admission Diagnosis/Problem Pneumonia Functional Status: Reports: Pain Controlled, Tolerating Diet, Ambulating, Urinating, Incentive Spirometry. Denies: New Symptoms - Review of Systems General: Reports: No Symptoms, Weakness (improved) HEENT: Reports: No Symptoms Pulmonary: Reports: Shortness of Breath (chronic but improved from admission), Cough (dry, nonproductive) Cardiovascular: Reports: No Symptoms, Dyspnea on Exertion (chronic and at baseline). Denies: Chest Pain, Palpitations Gastrointestinal: Reports: No Symptoms Genitourinary: Reports: No Symptoms Musculoskeletal: Reports: No Symptoms Skin: Reports: No Symptoms Neurological: Reports: No Symptoms Psychiatric: Reports: No Symptoms - Patient Data Vitals - Most Recent: Last Vital Signs Temp 97.5 F 05/17/17 04:51 Pulse 85 05/17/17 08:56 Resp 18 05/17/17 04:51 BP 109/55 L 05/17/17 08:56 Pulse Ox 91 L 05/17/17 09:39 Weight - Most Recent: 164 lb 8 oz I&O - Last 24 hours: Intake & Output 05/16/17 05/17/17 05/17/17 22:59 06:59 14:59 Intake Total 1060 380 180 Output Total 750 Balance 1060 -370 180 Lab Results - Last 24 hrs: Laboratory Results - last 24 hr 05/16/17 05/16/17 05/16/17 Range/Units 11:44 17:04 21:57 WBC (4.23-9.07) K/mm3 RBC (4.63-6.08) M/mm3 Hgb (13.7-17.5) gm/L Hct (40.1-51.0) % MCV (79.0-92.2) fl MCH (25.7-32.2) pg MCHC (32.2-35.5) g/dl RDW Std Deviation (35.1-43.9) fL Plt Count (163-337) K/mm3 MPV (9.4-12.3) fl Neut % (Auto) (34.0-67.9) % Lymph % (Auto) (21.8-53.1) % [place] % (Auto) (5.3-12.2) % Eos % (Auto) (0.8-7.0) Baso % (Auto) (0.1-1.2) % Neut # (Auto) (1.78-5.38) K/mm3 Lymph # (Auto) (1.32-3.57) K/mm3 [place] # (Auto) (0.30-0.82) K/mm3 Eos # (Auto) (0.04-0.54) K/mm3 Baso # (Auto) (0.01-0.08) K/mm3 Manual Slide Review Sodium (136-145) mEq/L Potassium (3.5-5.1) mEq/L Chloride (98-107) mEq/L Carbon Dioxide (21-32) mEq/L Anion Gap (5-15) BUN (7-18) mg/dL Creatinine (0.7-1.3) mg/dL Est Cr Clr Drug Dosing mL/min Estimated GFR (MDRD) (>60) mL/min BUN/Creatinine Ratio (14-18) Glucose 441 H (83-115) mg/dL POC Glucose 335 H 295 H (83-110) mg/dL Calcium (8.5-10.1) mg/dL Magnesium (1.8-2.4) mg/dl C-Reactive Protein (<1.0) mg/dL 05/17/17 05/17/17 05/17/17 Range/Units 06:34 09:15 09:15 WBC 18.28 H (4.23-9.07) K/mm3 RBC 4.25 L (4.63-6.08) M/mm3 Hgb 13.2 L (13.7-17.5) gm/L Hct 40.7 (40.1-51.0) % MCV 95.8 H (79.0-92.2) fl MCH 31.1 (25.7-32.2) pg MCHC 32.4 (32.2-35.5) g/dl RDW Std Deviation 48.4 H (35.1-43.9) fL Plt Count 254 (163-337) K/mm3 MPV 9.9 (9.4-12.3) fl Neut % (Auto) 82.4 H (34.0-67.9) % Lymph % (Auto) 9.5 L (21.8-53.1) % [place] % (Auto) 7.0 (5.3-12.2) % Eos % (Auto) 0.1 L (0.8-7.0) Baso % (Auto) 0.1 (0.1-1.2) % Neut # (Auto) 15.07 H (1.78-5.38) K/mm3 Lymph # (Auto) 1.73 (1.32-3.57) K/mm3 [place] # (Auto) 1.28 H (0.30-0.82) K/mm3 Eos # (Auto) 0.02 L (0.04-0.54) K/mm3 Baso # (Auto) 0.02 (0.01-0.08) K/mm3 Manual Slide Review Abnormal smear Sodium 139 (136-145) mEq/L Potassium 4.5 (3.5-5.1) mEq/L Chloride 101 (98-107) mEq/L Carbon Dioxide 33 H (21-32) mEq/L Anion Gap 9.5 (5-15) BUN 24 H (7-18) mg/dL Creatinine 1.2 (0.7-1.3) mg/dL Est Cr Clr Drug Dosing 46.47 mL/min Estimated GFR (MDRD) 58 (>60) mL/min BUN/Creatinine Ratio 20.0 H (14-18) Glucose 168 H (83-115) mg/dL POC Glucose 149 H (83-110) mg/dL Calcium 9.3 (8.5-10.1) mg/dL Magnesium 1.5 L (1.8-2.4) mg/dl C-Reactive Protein 7.6 H* (<1.0) mg/dL 05/17/17 Range/Units 11:10 WBC (4.23-9.07) K/mm3 RBC (4.63-6.08) M/mm3 Hgb (13.7-17.5) gm/L Hct (40.1-51.0) % MCV (79.0-92.2) fl MCH (25.7-32.2) pg MCHC (32.2-35.5) g/dl RDW Std Deviation (35.1-43.9) fL Plt Count (163-337) K/mm3 MPV (9.4-12.3) fl Neut % (Auto) (34.0-67.9) % Lymph % (Auto) (21.8-53.1) % [place] % (Auto) (5.3-12.2) % Eos % (Auto) (0.8-7.0) Baso % (Auto) (0.1-1.2) % Neut # (Auto) (1.78-5.38) K/mm3 Lymph # (Auto) (1.32-3.57) K/mm3 [place] # (Auto) (0.30-0.82) K/mm3 Eos # (Auto) (0.04-0.54) K/mm3 Baso # (Auto) (0.01-0.08) K/mm3 Manual Slide Review Sodium (136-145) mEq/L Potassium (3.5-5.1) mEq/L Chloride (98-107) mEq/L Carbon Dioxide (21-32) mEq/L Anion Gap (5-15) BUN (7-18) mg/dL Creatinine (0.7-1.3) mg/dL Est Cr Clr Drug Dosing mL/min Estimated GFR (MDRD) (>60) mL/min BUN/Creatinine Ratio (14-18) Glucose (83-115) mg/dL POC Glucose 199 H (83-110) mg/dL Calcium (8.5-10.1) mg/dL Magnesium (1.8-2.4) mg/dl C-Reactive Protein (<1.0) mg/dL Med Orders - Current: Current Medications Acetaminophen (Tylenol) 650 mg PO Q4H PRN PRN Reason: Pain Last Admin: 05/12/17 00:09 Dose: 650 mg Albuterol (Proventil Neb Soln) 2.5 mg NEB Q4H PRN PRN Reason: Shortness of Breath Last Admin: 05/10/17 23:15 Dose: 2.5 mg Albuterol/Ipratropium (Duoneb 3.0-0.5 Mg/3 Ml) 3 ml NEB QID PRN PRN Reason: Shortness of Breath Last Admin: 05/17/17 09:39 Dose: 3 ml Artificial Tears (Isopto Tears 0.5% Ophth Soln) 0 ml EYEBOTH BID [facility] Last Admin: 05/17/17 08:50 Dose: 1 drop Aspirin (Aspirin) 81 mg PO DAILY [facility] Last Admin: 05/17/17 08:55 Dose: 81 mg Dextrose/Water (Dextrose 50% In Water) 50 ml IVPUSH ASDIRECTED PRN PRN Reason: Hypoglycemia Fish Oil (Fish Oil) 1 gm PO DAILY [facility] Last Admin: 05/17/17 08:55 Dose: 1 gm Glipizide (Glucotrol) 10 mg PO DAILY [facility] Last Admin: 05/17/17 08:55 Dose: 10 mg Guaifenesin (Mucinex) 1,200 mg PO Q12HR PRN PRN Reason: Congestion Last Admin: 05/15/17 08:14 Dose: 1,200 mg Guaifenesin/Phenylephrine HCl (Robitussin Dm) 10 ml PO Q6H [facility] Last Admin: 05/17/17 09:03 Dose: 10 ml Sodium Chloride (Sodium Chloride 0.45%) 1,000 mls @ 75 mls/hr IV ASDIRECTED [facility] Last Admin: 05/12/17 15:34 Dose: 75 mls/hr Insulin Aspart (Novolog) 0 unit SUBCUT QIDACANDBED [facility] PRN Reason: Protocol Last Admin: 05/17/17 08:05 Dose: Not Given Insulin Detemir (Levemir) 10 unit SUBCUT BID [facility] Last Admin: 05/17/17 08:51 Dose: 10 units Levofloxacin (Levaquin) 750 mg PO Q24H [facility] Last Admin: 05/17/17 08:55 Dose: 750 mg Magnesium Oxide (Magnesium Oxide) 400 mg PO BID [facility] Metformin HCl (Glucophage) 1,000 mg PO BID [facility] Last Admin: 05/17/17 08:55 Dose: 1,000 mg Metoprolol Succinate (Toprol Xl) 50 mg PO DAILY [facility] Last Admin: 05/17/17 08:56 Dose: 50 mg Mometasone Furoate/Formoterol Fumar (Dulera 200-5 Mcg) 2 puff IH BID [facility] Last Admin: 05/17/17 09:39 Dose: 2 puff Multivitamins (Thera) 1 each PO DAILY [facility] Last Admin: 05/17/17 08:54 Dose: 1 each Nicotine (Habitrol) 21 mg TRDERM DAILY [facility] Last Admin: 05/17/17 08:53 Dose: 21 mg Nitroglycerin (Nitrostat) 0.4 mg SL Q5M PRN PRN Reason: Chest Pain Patient Own Medication (Ptom) 0 each EYEBOTH BID [facility] Last Admin: 05/17/17 08:56 Dose: 1 each Prednisone (Prednisone) 40 mg PO DAILY MARGOT Stop: 05/18/17 09:01 Last Admin: 05/17/17 08:55 Dose: 40 mg Prednisone (Prednisone) 30 mg PO DAILY MARGOT Stop: 05/21/17 09:01 Prednisone (Prednisone) 20 mg PO DAILY MARGOT Stop: 05/24/17 09:01 Prednisone (Prednisone) 10 mg PO DAILY [facility] Stop: 05/27/17 09:01 Saxagliptin Hydrochloride (Onglyza) 5 mg PO DAILY [facility] Last Admin: 05/17/17 08:55 Dose: 5 mg Simvastatin (Zocor) 40 mg PO BEDTIME [facility] Last Admin: 05/16/17 22:00 Dose: 40 mg Sodium Chloride (Saline Flush) 10 ml FLUSH ASDIRECTED PRN PRN Reason: Keep Vein Open Last Admin: 05/10/17 11:35 Dose: 10 ml Temazepam (Restoril) 7.5 mg PO BEDTIME PRN PRN Reason: Insomnia Tiotropium [place] (Spiriva Handihaler) 18 mcg INH DAILY [facility] Last Admin: 05/17/17 09:39 Dose: 1 cap Discontinued Medications Albuterol/Ipratropium (Duoneb 3.0-0.5 Mg/3 Ml) 3 ml NEB ONETIME ONE Stop: 05/10/17 11:12 Last Admin: 05/10/17 11:25 Dose: 3 ml Brimonidine Tartrate (Alphagan 0.2% [facility] Sol) 0 ml EYEBOTH BID [facility] Last Admin: 05/12/17 08:09 Dose: 1 drop Furosemide (Lasix) 20 mg IVPUSH NOW ONE Stop: 05/11/17 11:09 Last Admin: 05/11/17 12:35 Dose: 20 mg Levofloxacin/Dextrose 750 mg/ (Premix) 150 mls @ 100 mls/hr IV ONETIME ONE Stop: 05/10/17 14:30 Last Admin: 05/10/17 13:12 Dose: 100 mls/hr Levofloxacin/Dextrose 750 mg/ (Premix) 150 mls @ 100 mls/hr IV Q48H [facility] Last Admin: 05/12/17 08:10 Dose: 100 mls/hr Sodium Chloride (Sodium Chloride 0.45%) 1,000 mls @ 75 mls/hr IV ASDIRECTED [facility] Last Admin: 05/11/17 06:08 Dose: 75 mls/hr Magnesium Sulfate 4 gm/ Premix 100 mls @ 50 mls/hr IV ONETIME ONE Stop: 05/11/17 12:52 Last Admin: 05/11/17 14:37 Dose: Not Given Magnesium Sulfate 4 gm/ Premix 100 mls @ 50 mls/hr IV ONETIME ONE Stop: 05/11/17 15:14 Last Admin: 05/11/17 14:52 Dose: Not Given Magnesium Sulfate (Magnesium Sulfate 4 Gm In Water 100 Ml) Confirm Administered Dose 100 mls @ as directed .ROUTE .STK-MED ONE Stop: 05/11/17 13:14 Last Admin: 05/11/17 13:51 Dose: Not Given Magnesium Sulfate 2 gm/ Premix 50 mls @ 50 mls/hr IV Q1H [facility] Stop: 05/11/17 15:29 Last Admin: 05/11/17 14:58 Dose: 50 mls/hr Levofloxacin/Dextrose 750 mg/ (Premix) 150 mls @ 100 mls/hr IV Q24H [facility] Stop: 05/15/17 11:00 Last Admin: 05/15/17 08:12 Dose: 100 mls/hr Insulin Aspart (Novolog) 0 unit SUBCUT QIDACANDBED [facility] PRN Reason: Protocol Last Admin: 05/10/17 17:29 Dose: Not Given Insulin Aspart (Novolog) 0 unit SUBCUT QIDACANDBED MARGOT PRN Reason: Protocol Last Admin: 05/11/17 14:50 Dose: Not Given Insulin Aspart (Novolog) 0 unit SUBCUT QIDACANDBED MARGOT PRN Reason: Protocol Last Admin: 05/16/17 12:45 Dose: Not Given Insulin Aspart (Novolog) 0 unit SUBCUT QIDACANDBED MARGOT PRN Reason: Protocol Last Admin: 05/15/17 18:13 Dose: Not Given Insulin Aspart (Novolog) 0 unit SUBCUT ONETIME ONE PRN Reason: Protocol Stop: 05/16/17 12:32 Last Admin: 05/16/17 12:43 Dose: 15 units Insulin Detemir (Levemir) 2 unit SUBCUT ONETIME ONE Stop: 05/13/17 12:01 Last Admin: 05/13/17 12:50 Dose: 2 units Insulin Detemir (Levemir) 6 unit SUBCUT ONETIME ONE Stop: 05/15/17 13:01 Last Admin: 05/15/17 13:07 Dose: 6 units Insulin Detemir (Levemir) 6 unit SUBCUT BID [facility] Last Admin: 05/16/17 09:24 Dose: 6 units Methylprednisolone Sodium Succinate (Solu-Medrol) 125 mg IVPUSH ONETIME ONE Stop: 05/10/17 11:12 Last Admin: 05/10/17 11:33 Dose: 125 mg Methylprednisolone Sodium Succinate (Solu-Medrol) 125 mg IVPUSH Q6H [facility] Last Admin: 05/12/17 13:31 Dose: 125 mg Methylprednisolone Sodium Succinate (Solu-Medrol) 80 mg IVPUSH Q8H [facility] Last Admin: 05/13/17 12:47 Dose: 80 mg Methylprednisolone Sodium Succinate (Solu-Medrol) 40 mg IVPUSH Q12H [facility] Last Admin: 05/15/17 13:06 Dose: 40 mg Metoprolol Succinate (Toprol Xl) 50 mg PO DAILY [facility] Stop: 05/11/17 11:00 Last Admin: 05/11/17 10:29 Dose: 50 mg Mometasone Furoate/Formoterol Fumar (Dulera 200-5 Mcg) 2 puff IH BIDRT [facility] Potassium Chloride (Potassium Chloride) 20 meq PO ONETIME ONE Stop: 05/11/17 11:10 Last Admin: 05/11/17 12:35 Dose: 20 meq Tiotropium [place] (Spiriva Handihaler) 18 mcg INH DAILYRT [facility] - Exam Quality Assessment: Reports: Supplemental Oxygen, DVT Prophylaxis General: Reports: Alert, Oriented, Cooperative, No Acute Distress HEENT: Reports: Pupils Equal, EOMI, Mucous Membr. Moist/[place] Neck: Reports: Supple Lungs: Reports: Normal Respiratory Effort, Decreased Breath Sounds (throughout) , Wheezing Cardiovascular: Reports: Regular Rate, Regular Rhythm GI/Abdominal Exam: Normal Bowel Sounds, Soft, Non-Tender (Male) Exam: Deferred Rectal (Males) Exam: Deferred Extremities: Normal Inspection, No Pedal Edema, Normal Capillary Refill Neurological: Reports: No New Focal Deficit Psy/Mental Status: Reports: Alert, Normal Affect, Normal Mood *Q Meaningful Use (DIS) - VTE *Q VTE Criteria *Q: - Stroke *Q Stroke Criteria *Q: - AMI *Q AMI Criteria *Q:
[2017-05-17] MEDS ORDERED: Furosemide 20 MG Tab PO ONE (11:37)
[2017-05-19] MEDS ORDERED: predniSONE 10 MG Tab PO SCH (09:00)
[2017-05-22] MEDS ORDERED: predniSONE 20 MG Tab PO SCH (09:00)
[2017-05-25] MEDS ORDERED: predniSONE 10 MG Tab PO SCH (09:00)
== END 2017-05-17 13:55 | disposition home or self-care (01) | DRG 194 ==
LOC: JD.ED 10:53 → JD.MS 15:13
PROVIDERS: ADMIT Internal Medicine Cardiovascular Disease; ATTEND Internal Medicine Cardiovascular Disease
DX: J18.9 Pneumonia, unspecified organism (principal); I25.810 Atherosclerosis of coronary artery bypass graft(s) without angina pectoris; R09.02 Hypoxemia; I11.0 Hypertensive heart disease with heart failure; I50.9 Heart failure, unspecified; Z95.5 Presence of coronary angioplasty implant and graft; F17.210 Nicotine dependence, cigarettes, uncomplicated; E78.00 Pure hypercholesterolemia, unspecified; E11.65 Type 2 diabetes mellitus with hyperglycemia; E11.9 Type 2 diabetes mellitus without complications; J44.9 Chronic obstructive pulmonary disease, unspecified; E78.5 Hyperlipidemia, unspecified; Z88.0 Allergy status to penicillin; Z88.6 Allergy status to analgesic agent; Z91.041 Radiographic dye allergy status; Z79.84 Long term (current) use of oral hypoglycemic drugs; Z79.82 Long term (current) use of aspirin; Z99.81 Dependence on supplemental oxygen; Z79.899 Other long term (current) drug therapy
CPT/HCPCS: 36415; 71010; 80053; 84484; 85025; 87040 ×2; 93005; 94640; 96365; 96375; 99285; J1956; J2930; J7050; 71020; 71020-26; 80048; 80061; 81001; 82947; 82962; 83036; 83735; 86140; 86738; 87070; 87205; 87486; 87581; 87633; 87641; 87798; 87804; 87899; 93010; 94667; 94668; 94760; 94761; 97161-GP; 97162-GP; 97166-GO; 97530-GO; A9270; A9270-GY; J1815-GY; J2920; J3475; J7030

== ENCOUNTER 2017-05-19 19:28 | Emergency (ER) | payer MEDICARE, OTHER ==
[2017-05-19 19:53] VITALS: BP 115/64
[2017-05-19] MEDS ORDERED: Sodium Chloride 0.9% 10 ML Syringe FLUSH PRN (20:41)
[2017-05-19] MEDS ORDERED: Sodium Chloride 0.9% 500 ML IV ONE ×2 (20:45→21:34)
[2017-05-19] MEDS ORDERED: Sodium Chloride 0.9% 1,000 ML IV ONE ×2 (21:34→22:42)
[2017-05-19] MEDS ORDERED: Insulin Regular, Human 100 Units/ML 3 ML Vial IV ONE (21:35)
[2017-05-19] MEDS ORDERED: Sodium Polystyrene Sulfonate 15 GM/60 ML Susp 60 ML Bot PO ONE (21:36)
[2017-05-19] MEDS ORDERED: Albuterol 0.083% 2.5 MG/3 ML Neb Soln NEB ONE ×2 (21:40)
[2017-05-19] MEDS: Albuterol 0.083% 2.5 MG/3 ML Neb Soln NEB ONE ×2 (21:53→21:54)
--- NOTE | 2017-05-19 22:03 | EDM.PDOC ---
ED HPI GENERAL MEDICAL PROBLEM - General Chief Complaint: Diabetic Complaint Stated Complaint: BLOOD SUGAR OVER 500 Time Seen by Provider: 05/19/17 20:20 Source of Information: Reports: Patient, Old Records History Limitations: Reports: No Limitations - History of Present Illness INITIAL COMMENTS - FREE TEXT/NARRATIVE: 86 year old male presents for evaluation and treatment of high blood sugars. Patient was admitted to our hospital on 05-10-17 for pneumonia and hyoxia. Was seen through the ER and found to hypoxic with oxygen sats in the 60s on room upon arrival. Patient was discharged home on prednison. He was treated in the hospital with levaquin. Discharged on 05-17-17. Patient presents tonight for evaluation and treatment of hyperglycemia. Reports glucose over 500. Patient only complains of fatigue. Denies chest pain, chills, rigors, nausea and vomiting. Per prison report he has not had any fevers. Reports that he has had some shortness of breath with exertion. He also reports polyuria and polydipsia. Patient was discharge to [facility] assisted living. Patient has been on oxygen since his discharge. Has been on 2-3 L. Patient is a full code. - Related Data Allergies Allergy/AdvReac Type Severity Reaction Status Date / Time hydromorphone [From Dilaudid] Allergy Rash Verified 05/10/17 16:45 Penicillins Allergy Rash Verified 05/10/17 16:45 IV dye Allergy Hives Uncoded 05/10/17 11:23 Home Meds: Home Meds Aspirin [Children's Aspirin] 81 mg PO DAILY 04/28/14 [History] Losartan [Cozaar] 25 mg PO DAILY 04/28/14 [History] Metoprolol Succinate [Toprol XL] 50 mg PO DAILY 04/28/14 [History] Multivitamin [Multi-Vitamin Daily] 1 tab PO DAILY 04/28/14 [History] [place]-3 Fatty Acids [[place]-3] 1,000 mg PO DAILY 04/28/14 [History] Simvastatin [Zocor] 40 mg PO BEDTIME 04/28/14 [History] SitaGLIPtin [Januvia] 100 mg PO DAILY 04/28/14 [History] metFORMIN HCl [Fortamet] 1,000 mg PO BID 04/28/14 [History] Acetaminophen [Tylenol] 500 mg PO DAILY PRN 06/10/14 [History] Acetaminophen [Tylenol Extra Strength] 500 mg PO Q4HR PRN 05/10/17 [History] Albuterol [IJD: Albuterol HFA] 2 puff INH ASDIRECTED PRN 05/10/17 [History] Albuterol [Proventil Neb Soln] 2.5 mg NEB ASDIRECTED PRN 05/10/17 [History] Brimonidine [Alphagan P 0.15% Ophth Soln] 1 drop EYEBOTH BID 05/10/17 [History] Carboxymethylcellulos/Glycerin [Eq Lubricating Eye Drops] 1 drop EYEBOTH BID [History] Fluticasone/Salmeterol [Advair 250-50 Diskus] 1 puff INH BID 05/10/17 [History] Nitroglycerin [Nitrostat] 0.4 mg SL Q5M PRN 05/10/17 [History] Tiotropium [Spiriva Handihaler] 1 cap INH DAILY 05/10/17 [History] glipiZIDE [Glucotrol] 10 mg PO DAILY 05/10/17 [History] Insulin Detemir [Levemir] 10 unit SUBCUT BID #1 pen 05/17/17 [Rx] Magnesium Oxide 400 mg PO BID #60 tablet 05/17/17 [Rx] Nicotine [Habitrol] 21 mg TRDERM DAILY #30 patch 05/17/17 [Rx] Prednisone [IJD: predniSONE] 20 mg PO DAILY #3 tablet 05/17/17 [Rx] Prednisone [IJD: predniSONE] 40 mg PO DAILY #6 tablet 05/17/17 [Rx] guaiFENesin [Mucinex] 1,200 mg PO Q12HR PRN #60 tab.er 05/17/17 [Rx] predniSONE 10 mg PO DAILY #3 tablet 05/17/17 [Rx] predniSONE 30 mg PO DAILY #9 tablet 05/17/17 [Rx] Past Medical History HEENT History: Reports: Hard of Hearing, Impaired Vision Other HEENT History: corrected with glasses and PATRICIA Cardiovascular History: Reports: CAD, Heart Failure, High Cholesterol, Hypertension, SOB on Exertion, Stents, Other (See Below) Other Cardiovascular History: cardiomegaly Respiratory History: Reports: Bronchitis, Recurrent, COPD, Pneumonia, Recurrent , SOB Musculoskeletal History: Reports: Arthritis Neurological History: Reports: Concussion Endocrine/Metabolic History: Reports: Diabetes, Type II - Infectious Disease History Infectious Disease History: Reports: Chicken Pox, Mumps, Rubella - Past Surgical History HEENT Surgical History: Reports: Cataract Surgery Cardiovascular Surgical History: Reports: Coronary Artery Bypass Musculoskeletal Surgical History: Reports: None Social & Family History - Family History Family Medical History: Noncontributory - Tobacco Use Smoking Status *Q: Current Every Day Smoker Years of Tobacco use: 45 Packs/Tins Daily: 0.2 Used Tobacco, but Quit: No Second Hand Smoke Exposure: No - Caffeine Use Caffeine Use: Reports: Coffee, Tea Other Caffeine Use: 2 cups/day - Alcohol Use Days Per Week of Alcohol Use: 0 - Recreational Drug Use Recreational Drug Use: No ED ROS GENERAL - Review of Systems Review Of Systems: See Below Constitutional: Denies: Fever (no fevers per prison records), Malaise Respiratory: Denies: Shortness of Breath Cardiovascular: Reports: Blood Pressure Problem (reports hypotension), Dyspnea on Exertion. Denies: Chest Pain Endocrine: Reports: High Glucose, Polydypsia, Polyuria GI/Abdominal: Denies: Abdominal Pain, Nausea, Vomiting ED EXAM GENERAL NO PERIP PULSE - Physical Exam Exam: See Below Exam Limited By: No Limitations General Appearance: Alert, WD/WN, No Apparent Distress Eye Exam: Bilateral Eye: Normal Inspection Ears: Normal External Exam Nose: Normal Inspection Throat/Mouth: Normal Inspection, Normal Lips, Normal Voice, No Airway Compromise Neck: Normal Inspection Respiratory/Chest: No Respiratory Distress, Lungs Clear, Normal Breath Sounds Cardiovascular: Normal Peripheral Pulses, Regular Rate, Rhythm, No Murmur GI/Abdominal: Normal Bowel Sounds, Soft, Non-Tender Neurological: Alert, Oriented, Normal Cognition Psychiatric: Normal Affect, Normal Mood Skin Exam: Warm, Dry, Normal Color EKG INTERPRETATION EKG Date: 05/19/17 Time: 21:40 Rhythm: NSR Rate (Beats/Min): 82 [place]: Normal P-Wave: Present QRS: Normal ST-T: Normal QT: Normal EKG Interpretation Comments: NSR at 82 bpm. Old inferior wall UT. No acute ST-T wave changes. No ischemia noted. No QRS widening noted. Reviewed by myself and Dr. Joshi. Course - Vital Signs Last Recorded V/S: Last Vital Signs Temp 36.1 C 05/19/17 19:52 Pulse 82 05/19/17 19:52 Resp 26 H 05/19/17 19:52 BP 115/64 05/19/17 19:52 Pulse Ox 97 05/19/17 21:54 - Orders/Labs/Meds Orders: Active Orders 24 hr Category Date Time Status Blood Glucose Check, Bedside [RC] ONETIME Care 05/19/17 23:00 Active Cardiac Monitoring [RC] . DIRECTED Care 05/19/17 22:02 Active EKG 12 Lead [EKG Documentation Completion] [RC] STAT Care 05/19/17 21:35 Active Peripheral IV Care [RC] . DIRECTED Care 05/19/17 20:42 Active RT Aerosol Therapy [RC] ASDIRECTED Care 05/19/17 21:39 Active Chest 1V Frontal [CR] Stat Exams 05/19/17 21:39 Taken CULTURE BLOOD [BC] Stat Lab 05/19/17 21:50 Ordered CULTURE BLOOD [BC] Stat Lab 05/19/17 22:20 Received CULTURE URINE [RM] Stat Lab 05/19/17 21:50 Received Sodium Chloride 0.9% [Normal Saline] 1,000 ml Med 05/19/17 22:42 Active IV ONETIME Sodium Chloride 0.9% [Saline Flush] Med 05/19/17 20:41 Active 10 ml FLUSH ASDIRECTED PRN Blood Culture x2 Reflex Set [OM.PC] Stat Oth 05/19/17 21:50 Ordered Peripheral IV Insertion Adult [OM.PC] Routine Oth 05/19/17 20:41 Ordered Medication Orders Sodium Chloride (Normal Saline) 1,000 mls @ 100 mls/hr IV ONETIME ONE Stop: 05/20/17 08:41 Last Admin: 05/19/17 23:28 Dose: 100 mls/hr Sodium Chloride (Saline Flush) 10 ml FLUSH ASDIRECTED PRN PRN Reason: Keep Vein Open Labs: Laboratory Tests 05/19/17 05/19/17 05/19/17 Range/Units 20:59 20:59 20:59 WBC 13.16 H (4.23-9.07) K/mm3 RBC 3.85 L (4.63-6.08) M/mm3 Hgb 11.9 L (13.7-17.5) gm/L Hct 37.2 L (40.1-51.0) % MCV 96.6 H (79.0-92.2) fl MCH 30.9 (25.7-32.2) pg MCHC 32.0 L (32.2-35.5) g/dl RDW Std Deviation 48.7 H (35.1-43.9) fL Plt Count 235 (163-337) K/mm3 MPV 10.1 (9.4-12.3) fl Neutrophils % (Manual) 92 H (40-60) % Band Neutrophils % 0 (0-10) % Lymphocytes % (Manual) 4 L (20-40) % Atypical Lymphs % 0 % Monocytes % (Manual) 4 (2-10) % Eosinophils % (Manual) 0 L (0.8-7.0) % Basophils % (Manual) 0 L (0.2-1.2) Platelet Estimate Adequate Plt Morphology Comment Normal RBC Morph Comment Normal Puncture Site ABG pH (7.35-7.45) ABG pCO2 (35.0-45.0) mmHg ABG pO2 (80.0-100.0) mmHg ABG HCO3 (22.0-26.0) meq/L ABG O2 Saturation (96.0-97.0) % ABG Base Excess (-2-2.0) Sharad Test A-a Gradient mmHg O2 Delivery Device Oxygen Flow Rate FiO2 (21.00-100.00) % Sodium 132 L (136-145) mEq/L Potassium 6.4 H* (3.5-5.1) mEq/L Chloride 98 (98-107) mEq/L Carbon Dioxide 27 (21-32) mEq/L Anion Gap 13.4 (5-15) BUN 43 H (7-18) mg/dL Creatinine 1.8 H (0.7-1.3) mg/dL Est Cr Clr Drug Dosing TNP Estimated GFR (MDRD) 36 (>60) mL/min BUN/Creatinine Ratio 23.9 H (14-18) Glucose 628 H* (83-115) mg/dL Serum Osmolality 320 H (280-300) mosm/kg Lactic Acid (0.4-2.0) mmol/L Calcium 9.2 (8.5-10.1) mg/dL Magnesium 1.7 L (1.8-2.4) mg/dl Total Bilirubin 0.3 (0.2-1.0) mg/dL AST 33 (15-37) U/L ALT 72 H (16-63) U/L Alkaline Phosphatase 206 H (46-116) U/L C-Reactive Protein 5.9 H* (<1.0) mg/dL Total Protein 6.5 (6.4-8.2) g/dl Albumin 2.1 L (3.4-5.0) g/dl Globulin 4.4 gm/dL Albumin/Globulin Ratio 0.5 L (1-2) Urine Color (Yellow) Urine Appearance (Clear) Urine pH (5.0-8.0) Ur Specific [place] (1.005-1.030) Urine Protein (Negative) Urine Glucose (UA) (Negative) Urine Ketones (Negative) Urine Occult Blood (Negative) Urine Nitrite (Negative) Urine Bilirubin (Negative) Urine Urobilinogen (0.2-1.0) Ur Leukocyte Esterase (Negative) Urine RBC (0-5) /hpf Urine WBC (0-5) /hpf Ur Epithelial Cells (0-5) /hpf Urine Bacteria (FEW) /hpf Urine Mucus (FEW) /hpf Ketones (0.0-0.3) mM 05/19/17 05/19/17 05/19/17 Range/Units 20:59 21:47 21:50 WBC (4.23-9.07) K/mm3 RBC (4.63-6.08) M/mm3 Hgb (13.7-17.5) gm/L Hct (40.1-51.0) % MCV (79.0-92.2) fl MCH (25.7-32.2) pg MCHC (32.2-35.5) g/dl RDW Std Deviation (35.1-43.9) fL Plt Count (163-337) K/mm3 MPV (9.4-12.3) fl Neutrophils % (Manual) (40-60) % Band Neutrophils % (0-10) % Lymphocytes % (Manual) (20-40) % Atypical Lymphs % % Monocytes % (Manual) (2-10) % Eosinophils % (Manual) (0.8-7.0) % Basophils % (Manual) (0.2-1.2) Platelet Estimate Plt Morphology Comment RBC Morph Comment Puncture Site ABG pH (7.35-7.45) ABG pCO2 (35.0-45.0) mmHg ABG pO2 (80.0-100.0) mmHg ABG HCO3 (22.0-26.0) meq/L ABG O2 Saturation (96.0-97.0) % ABG Base Excess (-2-2.0) Sharad Test A-a Gradient mmHg O2 Delivery Device Oxygen Flow Rate FiO2 (21.00-100.00) % Sodium (136-145) mEq/L Potassium 5.9 H (3.5-5.1) mEq/L Chloride (98-107) mEq/L Carbon Dioxide (21-32) mEq/L Anion Gap (5-15) BUN (7-18) mg/dL Creatinine (0.7-1.3) mg/dL Est Cr Clr Drug Dosing Estimated GFR (MDRD) (>60) mL/min BUN/Creatinine Ratio (14-18) Glucose (83-115) mg/dL Serum Osmolality (280-300) mosm/kg Lactic Acid (0.4-2.0) mmol/L Calcium (8.5-10.1) mg/dL Magnesium (1.8-2.4) mg/dl Total Bilirubin (0.2-1.0) mg/dL AST (15-37) U/L ALT (16-63) U/L Alkaline Phosphatase (46-116) U/L C-Reactive Protein (<1.0) mg/dL Total Protein (6.4-8.2) g/dl Albumin (3.4-5.0) g/dl Globulin gm/dL Albumin/Globulin Ratio (1-2) Urine Color Yellow (Yellow) Urine Appearance Clear (Clear) Urine pH 6.0 (5.0-8.0) Ur Specific [place] 1.015 (1.005-1.030) Urine Protein Negative (Negative) Urine Glucose (UA) 2+ H (Negative) Urine Ketones Negative (Negative) Urine Occult Blood Negative (Negative) Urine Nitrite Negative (Negative) Urine Bilirubin Negative (Negative) Urine Urobilinogen 0.2 (0.2-1.0) Ur Leukocyte Esterase Negative (Negative) Urine RBC Not seen (0-5) /hpf Urine WBC Not seen (0-5) /hpf Ur Epithelial Cells 0-5 (0-5) /hpf Urine Bacteria Not seen (FEW) /hpf Urine Mucus Not seen (FEW) /hpf Ketones 0.25 (0.0-0.3) mM 05/19/17 05/19/17 Range/Units 21:57 22:15 WBC (4.23-9.07) K/mm3 RBC (4.63-6.08) M/mm3 Hgb (13.7-17.5) gm/L Hct (40.1-51.0) % MCV (79.0-92.2) fl MCH (25.7-32.2) pg MCHC (32.2-35.5) g/dl RDW Std Deviation (35.1-43.9) fL Plt Count (163-337) K/mm3 MPV (9.4-12.3) fl Neutrophils % (Manual) (40-60) % Band Neutrophils % (0-10) % Lymphocytes % (Manual) (20-40) % Atypical Lymphs % % Monocytes % (Manual) (2-10) % Eosinophils % (Manual) (0.8-7.0) % Basophils % (Manual) (0.2-1.2) Platelet Estimate Plt Morphology Comment RBC Morph Comment Puncture Site Lt radial ABG pH 7.35 (7.35-7.45) ABG pCO2 45.6 H (35.0-45.0) mmHg ABG pO2 80.0 (80.0-100.0) mmHg ABG HCO3 24.8 (22.0-26.0) meq/L ABG O2 Saturation 93.5 L (96.0-97.0) % ABG Base Excess -0.4 (-2-2.0) Sharad Test Positive A-a Gradient 55 mmHg O2 Delivery Device Cannula Oxygen Flow Rate 2.5 FiO2 30.00 (21.00-100.00) % Sodium (136-145) mEq/L Potassium (3.5-5.1) mEq/L Chloride (98-107) mEq/L Carbon Dioxide (21-32) mEq/L Anion Gap (5-15) BUN (7-18) mg/dL Creatinine (0.7-1.3) mg/dL Est Cr Clr Drug Dosing Estimated GFR (MDRD) (>60) mL/min BUN/Creatinine Ratio (14-18) Glucose (83-115) mg/dL Serum Osmolality (280-300) mosm/kg Lactic Acid 4.2 H (0.4-2.0) mmol/L Calcium (8.5-10.1) mg/dL Magnesium (1.8-2.4) mg/dl Total Bilirubin (0.2-1.0) mg/dL AST (15-37) U/L ALT (16-63) U/L Alkaline Phosphatase (46-116) U/L C-Reactive Protein (<1.0) mg/dL Total Protein (6.4-8.2) g/dl Albumin (3.4-5.0) g/dl Globulin gm/dL Albumin/Globulin Ratio (1-2) Urine Color (Yellow) Urine Appearance (Clear) Urine pH (5.0-8.0) Ur Specific [place] (1.005-1.030) Urine Protein (Negative) Urine Glucose (UA) (Negative) Urine Ketones (Negative) Urine Occult Blood (Negative) Urine Nitrite (Negative) Urine Bilirubin (Negative) Urine Urobilinogen (0.2-1.0) Ur Leukocyte Esterase (Negative) Urine RBC (0-5) /hpf Urine WBC (0-5) /hpf Ur Epithelial Cells (0-5) /hpf Urine Bacteria (FEW) /hpf Urine Mucus (FEW) /hpf Ketones (0.0-0.3) mM Meds: Medications Generic Name Dose Route Start Last Admin Trade Name Freq PRN Reason Stop Dose Admin Sodium Chloride 1,000 mls @ 100 mls/hr 05/19/17 22:42 05/19/17 23:28 Normal Saline IV 05/20/17 08:41 100 mls/hr ONETIME ONE Administration Sodium Chloride 10 ml 05/19/17 20:41 Saline Flush FLUSH ASDIRECTED PRN Keep Vein Open Discontinued Medications Generic Name Dose Route Start Last Admin Trade Name Freq PRN Reason Stop Dose Admin Albuterol 2.5 mg 05/19/17 21:39 05/19/17 21:54 Proventil Neb Soln NEB 05/19/17 21:40 2.5 mg ONETIME ONE Administration Albuterol 2.5 mg 05/19/17 21:40 05/19/17 21:54 Proventil Neb Soln NEB 05/19/17 21:41 Not Given ONETIME ONE Albuterol 2.5 mg 05/19/17 21:40 05/19/17 21:54 Proventil Neb Soln NEB 05/19/17 21:41 Not Given ONETIME ONE Sodium Chloride 500 mls @ 500 mls/hr 05/19/17 20:45 05/19/17 21:28 Normal Saline IV 05/19/17 21:44 500 mls/hr ONETIME ONE Administration Sodium Chloride 1,000 mls @ 999 mls/hr 05/19/17 21:34 Normal Saline IV 05/19/17 22:34 ONETIME ONE Sodium Chloride 500 mls @ 500 mls/hr 05/19/17 21:34 Normal Saline IV 05/19/17 22:33 ONETIME ONE Insulin Human Regular 10 unit 05/19/17 21:35 05/19/17 21:47 Humulin R IV 05/19/17 21:36 10 units ONETIME ONE Administration Sodium Polystyrene Sulfonate 15 gm 05/19/17 21:36 05/19/17 21:48 Kayexalate PO 05/19/17 21:37 15 gm ONETIME ONE Administration - Radiology Interpretation Free Text/Narrative:: chest xray 1 view shows no change from 05-14-17. No definite infiltrate. - Re-Assessments/Exams Free Text/Narrative Re-Assessment/Exam: 05/19/17 23:57 When patient's lab returned with a potassium of 6.4 and a blood sugar of 628 I had nursing staff give him 10 units of insulin and 15 g of Kayexalate. He also received received 3 albuterol nebs [id number]. Had lab recheck his potassium down to 5.9. Most recent blood sugar registered high on the glucometer I had lab come to recheck him. I discussed the case with the family. Patient needs to be admitted for hyperglycemia and hyperkalemia. His creatinine is also elevated at 1.8. Was 1.2 at his discharge. He has acute kidney injury. Family elected to go to [facility] in [place]. I discussed the case with Dr. Foote, hospitalist electron gun assembler for [facility] in [place]. She is more than happy to accept the patient, however, she felt this is a lateral transfer. She emphasized that he likely would not see his kit planner and saw grinder as the family desires. I discussed this with the family. I informed him that this is a lateral transfer and it is possible his ambulance bill would not be covered. I informed him that he will likely not see his kit planner and saw grinder. They then elected to stay in [place]. I spoke with our hospitalist on-call, Dr. Wu, she feels that he requires a higher level of care. She is concerned over his blood sugars as they were difficult to control during his hospitalization. She also feels he would benefit from cardiology and pulmonology. I called [facility] in [place]. Informed to Dr. Foote of this. She agrees to accept the patient. Plan will be to send the patient by ground ambulance to [facility] in [place]. Dr. Wu excepting. Diagnosis hyperglycemia, hyperkalemia, dehydration and acute kidney injury. Departure - Departure Time of Disposition: 00:03 Disposition: DC/Tfer to [facility] 02 Condition: Serious Clinical Impression: Hyperglycemia, Hyperkalemia, Acute kidney injury, Dehydration, Prednisone adverse reaction - Discharge Information Referrals: Moo Coyle MD [Primary Care Provider] - Forms: ED Department Discharge Additional Instructions: Patient will go by ground ambulance to [facility]. Dr. Foote, hospitalist accepting. - My Orders Last 24 Hours: My Active Orders 05/19/17 20:41 Sodium Chloride 0.9% [Saline Flush] 10 ml FLUSH ASDIRECTED PRN Peripheral IV Insertion Adult [OM.PC] Routine 05/19/17 20:42 Peripheral IV Care [RC] . DIRECTED 05/19/17 21:35 EKG 12 Lead [EKG Documentation Completion] [RC] STAT 05/19/17 21:39 RT Aerosol Therapy [RC] ASDIRECTED Chest 1V Frontal [CR] Stat 05/19/17 21:50 CULTURE BLOOD [BC] Stat CULTURE URINE [RM] Stat Blood Culture x2 Reflex Set [OM.PC] Stat 05/19/17 22:02 Cardiac Monitoring [RC] . DIRECTED 05/19/17 22:20 CULTURE BLOOD [BC] Stat 05/19/17 22:42 Sodium Chloride 0.9% [Normal Saline] 1,000 ml IV ONETIME 05/19/17 23:00 Blood Glucose Check, Bedside [RC] ONETIME - Assessment/Plan Last 24 Hours: My Active Orders 05/19/17 20:41 Sodium Chloride 0.9% [Saline Flush] 10 ml FLUSH ASDIRECTED PRN Peripheral IV Insertion Adult [OM.PC] Routine 05/19/17 20:42 Peripheral IV Care [RC] . DIRECTED 05/19/17 21:35 EKG 12 Lead [EKG Documentation Completion] [RC] STAT 05/19/17 21:39 RT Aerosol Therapy [RC] ASDIRECTED Chest 1V Frontal [CR] Stat 05/19/17 21:50 CULTURE BLOOD [BC] Stat CULTURE URINE [RM] Stat Blood Culture x2 Reflex Set [OM.PC] Stat 05/19/17 22:02 Cardiac Monitoring [RC] . DIRECTED 05/19/17 22:20 CULTURE BLOOD [BC] Stat 05/19/17 22:42 Sodium Chloride 0.9% [Normal Saline] 1,000 ml IV ONETIME 05/19/17 23:00 Blood Glucose Check, Bedside [RC] ONETIME
--- NOTE | 2017-05-20 08:42 | CR ---
Chest: Portable view of the chest was obtained. Comparison: Prior chest x-ray of 05/14/17. Diffuse increased markings are seen throughout the chest. Findings are fairly stable from prior exam. Heart size is within normal limits for portable technique. Previous sternotomy is noted. Bony structures are grossly intact. Surgical clip is seen within the left upper abdomen. Lungs are hyperinflated compatible with emphysematous change. Impression: 1. Findings as noted above. No appreciable change is seen from prior chest x-ray. Diagnostic code #3
== END 2017-05-20 00:15 ==
LOC: JD.ED 19:28
DX: E11.65 Type 2 diabetes mellitus with hyperglycemia (principal); E87.5 Hyperkalemia; E86.0 Dehydration; N17.9 Acute kidney failure, unspecified; T38.0X5A Adverse effect of glucocorticoids and synthetic analogues, initial encounter; I10 Essential (primary) hypertension; F17.210 Nicotine dependence, cigarettes, uncomplicated; Z88.5 Allergy status to narcotic agent; Z88.0 Allergy status to penicillin; Z79.82 Long term (current) use of aspirin; Z79.899 Other long term (current) drug therapy; Z79.4 Long term (current) use of insulin
CPT/HCPCS: 36415; 36600; 71010; 80053; 81001; 82009; 82803; 82947; 83605; 83735; 83930; 84132; 85025; 86140; 87040; 87086; 93005; 94640; 96361; 96374; 99285; A9270; J1817; J7040; 93010; 99284

== ENCOUNTER 2017-06-19 10:21 | Inpatient (IN) | payer MEDICARE, OTHER ==
--- NOTE | 2017-06-19 11:07 | EDM.PDOC ---
ED HPI GENERAL MEDICAL PROBLEM - General Chief Complaint: Back Pain or Injury Stated Complaint: BACK PAIN Time Seen by Provider: 06/19/17 11:06 Source of Information: Reports: Patient History Limitations: Reports: No Limitations - History of Present Illness INITIAL COMMENTS - FREE TEXT/NARRATIVE: Elderly 87-year-old male presents to the ED for evaluation of mid lower back pain. It was intermittent for the last 5-6 days but much more constant and severe the last 3 days. It is felt mostly mid back from T10-L1 area and radiates to the right side. Worse with movement and coughing. Patient has been ill with upper respiratory tract infection and diagnosed with left lower lobar pneumonia 2 weeks ago. He has finished his antibiotics. He is still coughing. He states he had a terrible paroxysmal cough during this illness. Unclear whether he was influenza positive. Continues to cough and produce a clear sputum. No hemoptysis. Patient is very fragile. He states his ability to walk and get around is decreased substantially from this illness. Currently residing at [facility] and does receive some assistance. Onset: Gradual (First noted 5-6 days ago but more constant and severe the last 3 days with severe limited mobility.) Onset Date: 06/14/17 Duration: Day(s): Location: Reports: Back (Right mid lower back. Radiates towards the right flank. ) Quality: Reports: Ache Severity: Moderate (Rates pain as 7 or 8 out of 10 with movement and 5 out of 10 even lying still.) Improves with: Reports: Rest Worsens with: Reports: Movement Context: Denies: Activity, Exercise, Lifting, Sick Contact, Trauma, Other Associated Symptoms: Reports: Chest Pain, Cough (From coughing), cough w sputum ( coughing), Malaise, Shortness of Breath, Weakness (Very weak and legs are hardly able to hold him up at this time.). Denies: Confusion, Diaphoresis ( Whitey suspect sputum. ), Fever/Chills, Headaches, Loss of Appetite, Nausea/ Vomiting, Rash, Syncope Treatments PRICE ANALYST: Reports: Acetaminophen Lower Back Pain Score (Numeric/FACES): 8 - Related Data Allergies Allergy/AdvReac Type Severity Reaction Status Date / Time hydromorphone [From Dilaudid] Allergy Rash Verified 06/19/17 21:19 Penicillins Allergy Rash Verified 06/19/17 21:19 IV dye Allergy Hives Uncoded 06/19/17 21:19 Home Meds: Home Meds Aspirin [Children's Aspirin] 81 mg PO DAILY 04/28/14 [History] Losartan [Cozaar] 25 mg PO DAILY 04/28/14 [History] Metoprolol Succinate [Toprol XL] 50 mg PO DAILY 04/28/14 [History] Multivitamin [Multi-Vitamin Daily] 1 tab PO DAILY 04/28/14 [History] Ellerslie-3 Fatty Acids [Ellerslie-3] 1,000 mg PO DAILY 04/28/14 [History] Simvastatin [Zocor] 40 mg PO BEDTIME 04/28/14 [History] SitaGLIPtin [Januvia] 100 mg PO DAILY 04/28/14 [History] metFORMIN HCl [Fortamet] 1,000 mg PO BID 04/28/14 [History] Acetaminophen [Tylenol] 500 mg PO DAILY PRN 06/10/14 [History] Acetaminophen [Tylenol Extra Strength] 500 mg PO Q4HR PRN 05/10/17 [History] Albuterol [IJD: Albuterol HFA] 2 puff INH ASDIRECTED PRN 05/10/17 [History] Albuterol [Proventil Neb Soln] 2.5 mg NEB ASDIRECTED PRN 05/10/17 [History] Brimonidine [Alphagan P 0.15% Ophth Soln] 1 drop EYEBOTH BID 05/10/17 [History] Carboxymethylcellulos/Glycerin [Eq Lubricating Eye Drops] 1 drop EYEBOTH BID [History] Fluticasone/Salmeterol [Advair 250-50 Diskus] 1 puff INH BID 05/10/17 [History] Nitroglycerin [Nitrostat] 0.4 mg SL Q5M PRN 05/10/17 [History] Tiotropium [Spiriva Handihaler] 1 cap INH DAILY 05/10/17 [History] glipiZIDE [Glucotrol] 10 mg PO DAILY 05/10/17 [History] Insulin Detemir [Levemir] 10 unit SUBCUT BID #1 pen 05/17/17 [Rx] Magnesium Oxide 400 mg PO BID #60 tablet 05/17/17 [Rx] Nicotine [Habitrol] 21 mg TRDERM DAILY #30 patch 05/17/17 [Rx] Prednisone [IJD: predniSONE] 20 mg PO DAILY #3 tablet 05/17/17 [Rx] Prednisone [IJD: predniSONE] 40 mg PO DAILY #6 tablet 05/17/17 [Rx] guaiFENesin [Mucinex] 1,200 mg PO Q12HR PRN #60 tab.er 05/17/17 [Rx] predniSONE 10 mg PO DAILY #3 tablet 05/17/17 [Rx] predniSONE 30 mg PO DAILY #9 tablet 05/17/17 [Rx] Past Medical History HEENT History: Reports: Hard of Hearing, Impaired Vision Other HEENT History: corrected with glasses and PATRICIA Cardiovascular History: Reports: CAD, Heart Failure, High Cholesterol, Hypertension, SOB on Exertion, Stents, Other (See Below) Other Cardiovascular History: cardiomegaly Respiratory History: Reports: Bronchitis, Recurrent, COPD, Pneumonia, Recurrent , SOB Musculoskeletal History: Reports: Arthritis Neurological History: Reports: Concussion Endocrine/Metabolic History: Reports: Diabetes, Type II - Infectious Disease History Infectious Disease History: Reports: Chicken Pox, Mumps, Rubella - Past Surgical History HEENT Surgical History: Reports: Cataract Surgery Cardiovascular Surgical History: Reports: Coronary Artery Bypass Musculoskeletal Surgical History: Reports: None Social & Family History - Family History Family Medical History: Noncontributory - Tobacco Use Smoking Status *Q: Unknown Ever Smoked Years of Tobacco use: 45 Packs/Tins Daily: 0.2 Used Tobacco, but Quit: No Second Hand Smoke Exposure: No - Caffeine Use Caffeine Use: Reports: Coffee, Tea Other Caffeine Use: 2 cups/day - Alcohol Use Days Per Week of Alcohol Use: 0 - Recreational Drug Use Recreational Drug Use: No - Living Situation & Occupation Living situation: Reports: Extended Care Facility Occupation: Retired (Lives at [facility].) ED ROS GENERAL - Review of Systems Review Of Systems: See Below Constitutional: Reports: Malaise, Weakness, Fatigue, Decreased Appetite, Weight Loss. Denies: Fever, Chills HEENT: Reports: Glasses, Hearing Loss (Is mildly hard of hearing.) Respiratory: Reports: Shortness of Breath, Wheezing, Cough, Sputum. Denies: Pleuritic Chest Pain, Hemoptysis (Whitish in color) Cardiovascular: Reports: Dyspnea on Exertion (In his lower extremities are likely), Edema, Lightheadedness, Other (Well-healed midline sternotomy incision) . Denies: Chest Pain, Blood Pressure Problem, Claudication, Orthopnea Endocrine: Reports: Fatigue GI/Abdominal: Reports: Decreased Appetite. Denies: Abdominal Pain, Constipation , Diarrhea, Difficulty Swallowing, Distension, Flatus, Hematemesis, Hematochezia , Mucous in Stool, Nausea, Stool Incontinence : Reports: Frequency, Other (Nocturia 3 or 4. Has known BPH.) Musculoskeletal: Reports: Neck Pain (See history of present illness), Shoulder Pain, Back Pain, Joint Pain (Knees and hips at times.) Skin: Reports: No Symptoms Neurological: Reports: No Symptoms Psychiatric: Reports: No Symptoms ED EXAM,LOWER BACK PAIN/INJURY - Physical Exam Exam: See Below Exam Limited By: No Limitations General Appearance: Alert, WD/WN, Moderate Distress, Cachetic, Other (Patient appears to be quite thin and fragile.) Eye Exam: Bilateral Eye: Normal Inspection Throat/Mouth: Normal Inspection, Normal Lips, Normal Oropharynx Head: Atraumatic, Normocephalic Neck: Normal Inspection, Supple, Non-Tender, Full Range of Motion. No: Lymphadenopathy (L), Lymphadenopathy (R) Respiratory/Chest: Respiratory Distress (Mild tachypnea at rest. O2 sats 93%), Rales (Coarse rales throughout both lung lau posteriorly. Perhaps a little worse on the left as compared to the right.), Other (Well-healed left-sided thoracotomy incision.) Cardiovascular: Regular Rate, Rhythm, No Murmur, JVD (3 cm below the right angle of his mandible). No: Normal Peripheral Pulses, No Edema GI/Abdominal: Normal Bowel Sounds, Soft, Non-Tender, Distended (Slightly distended and tympanitic to percussion in the epigastrium compose some aerophagia.) Back Exam: CVA Tenderness (R), Decreased Range of Motion (Mild.), Vertebral Tenderness (Tenderness appreciated on palpation from T10 to lumbar to area. Seems to be worse around T12-L1 level. Pain radiates to the right flank area.). No: Full Range of Motion, CVA Tenderness (L) Extremities: Normal Inspection, Pedal Edema (2+ pitting edema to mid tib-fib bilaterally.), Other (Peter very cool and pulses are not palpable in his feet.) . No: Normal Range of Motion, Non-Tender, No Pedal Edema Neurological: Alert, Normal Mood/Affect, Normal Dorsiflexion, CN II-XII Intact, Oriented x 3, Difficulty Walking (Severe difficulty walking weakness in lower extremities). No: Normal Gait Psychiatric: Anxious, Flat Affect Skin Exam: Warm, Dry, Intact, Normal Color, No Rash Course - Vital Signs Last Recorded V/S: Last Vital Signs Temp 36.1 C 06/19/17 20:39 Pulse 104 H 06/19/17 20:39 Resp 24 H 06/19/17 20:39 BP 128/86 06/19/17 20:39 Pulse Ox 96 06/19/17 20:39 - Orders/Labs/Meds Orders: Active Orders 24 hr Category Date Time Status Oxygen Therapy [RC] ASDIRECTED Care 06/19/17 11:24 Active Sodium Chloride 0.9% [Saline Flush] Med 06/19/17 11:16 Active 10 ml FLUSH ASDIRECTED PRN Peripheral IV Insertion Adult [OM.PC] Stat Oth 06/19/17 11:16 Ordered Medication Orders Aspirin (Aspirin) 81 mg PO DAILY [facility] Enoxaparin Sodium (Lovenox) 40 mg SUBCUT DAILY [facility] Fentanyl (Duragesic) 12 mcg TRDERM Q72H [facility] Last Admin: 06/19/17 18:04 Dose: 12 mcg Furosemide (Lasix) 40 mg IVPUSH NOW ONE Stop: 06/20/17 08:01 Glipizide (Glucotrol) 10 mg PO DAILY [facility] Guaifenesin (Mucinex) 1,200 mg PO Q12HR PRN PRN Reason: Congestion Levofloxacin/Dextrose 750 mg/ (Premix) 150 mls @ 100 mls/hr IV Q24H [facility] Insulin Aspart (Novolog) 0 unit SUBCUT QIDACANDBED [facility] PRN Reason: Protocol Insulin Detemir (Levemir) 10 unit SUBCUT BID [facility] Metoprolol Succinate (Toprol Xl) 50 mg PO DAILY [facility] Miscellaneous Information (Remove Patch) 1 ea TRDERM Q72H [facility] Morphine Sulfate (Morphine) 1 mg IVPUSH Q8H PRN PRN Reason: Pain Last Admin: 06/19/17 18:04 Dose: 1 mg Nicotine (Habitrol) 21 mg TRDERM DAILY [facility] Nitroglycerin (Nitrostat) 0.4 mg SL Q5M PRN PRN Reason: Chest Pain Non-Formulary Medication (Brimonidine) 1 drop EYEBOTH BID [facility] Non-Formulary Medication (Carboxymethylcellulos/Glycerin [Eq Lubricating Eye Drops]) 1 drop EYEBOTH BID [facility] Non-Formulary Medication (Fluticasone/Salmeterol) 1 puff INH BID [facility] Non-Formulary Medication (Metformin Hcl [Fortamet]) 1,000 mg PO BID [facility] Non-Formulary Medication (Sitagliptin) 100 mg PO DAILY [facility] Simvastatin (Zocor) 40 mg PO BEDTIME [facility] Sodium Chloride (Saline Flush) 10 ml FLUSH ASDIRECTED PRN PRN Reason: Keep Vein Open Last Admin: 06/19/17 12:39 Dose: 10 ml Tramadol HCl (Ultram) 50 mg PO Q6H PRN PRN Reason: Pain Labs: Laboratory Tests 06/19/17 06/19/17 06/19/17 Range/Units 11:40 11:40 11:40 WBC 13.38 H (4.23-9.07) K/mm3 RBC 3.57 L (4.63-6.08) M/mm3 Hgb 10.8 L (13.7-17.5) gm/L Hct 34.7 L (40.1-51.0) % MCV 97.2 H (79.0-92.2) fl MCH 30.3 (25.7-32.2) pg MCHC 31.1 L (32.2-35.5) g/dl RDW Std Deviation 48.2 H (35.1-43.9) fL Plt Count 301 (163-337) K/mm3 MPV 9.7 (9.4-12.3) fl Neutrophils % (Manual) 72 H (40-60) % Band Neutrophils % 2 (0-10) % Lymphocytes % (Manual) 18 L (20-40) % Atypical Lymphs % 0 % Monocytes % (Manual) 7 (2-10) % Eosinophils % (Manual) 1 (0.8-7.0) % Basophils % (Manual) 0 L (0.2-1.2) Platelet Estimate Adequate RBC Morph Comment Normal PT 11.0 (8.0-13.0) SECONDS INR 1.01 Sodium 136 (136-145) mEq/L Potassium 4.6 (3.5-5.1) mEq/L Chloride 99 (98-107) mEq/L Carbon Dioxide 32 (21-32) mEq/L Anion Gap 9.6 (5-15) BUN 14 (7-18) mg/dL Creatinine 1.0 (0.7-1.3) mg/dL Est Cr Clr Drug Dosing TNP Estimated GFR (MDRD) > 60 (>60) mL/min BUN/Creatinine Ratio 14.0 (14-18) Glucose 217 H (83-115) mg/dL Calcium 9.0 (8.5-10.1) mg/dL Magnesium 1.5 L (1.8-2.4) mg/dl Total Bilirubin 0.4 (0.2-1.0) mg/dL AST 34 (15-37) U/L ALT 38 (16-63) U/L Alkaline Phosphatase 185 H (46-116) U/L CK-MB (CK-2) 1.5 (0-3.6) ng/ml Troponin I < 0.017 (0.00-0.056) ng/mL C-Reactive Protein 22.1 H* (<1.0) mg/dL NT-Pro-B Natriuret Pep 1062 H (0-450) pg/mL Total Protein 8.0 (6.4-8.2) g/dl Albumin 2.0 L (3.4-5.0) g/dl Globulin 6.0 gm/dL Albumin/Globulin Ratio 0.3 L (1-2) Urine Color (Yellow) Urine Appearance (Clear) Urine pH (5.0-8.0) Ur Specific Matthews (1.005-1.030) Urine Protein (Negative) Urine Glucose (UA) (Negative) Urine Ketones (Negative) Urine Occult Blood (Negative) Urine Nitrite (Negative) Urine Bilirubin (Negative) Urine Urobilinogen (0.2-1.0) Ur Leukocyte Esterase (Negative) Urine RBC (0-5) /hpf Urine WBC (0-5) /hpf Ur Epithelial Cells (0-5) /hpf Urine Bacteria (FEW) /hpf Urine Mucus (FEW) /hpf 06/19/17 Range/Units 12:05 WBC (4.23-9.07) K/mm3 RBC (4.63-6.08) M/mm3 Hgb (13.7-17.5) gm/L Hct (40.1-51.0) % MCV (79.0-92.2) fl MCH (25.7-32.2) pg MCHC (32.2-35.5) g/dl RDW Std Deviation (35.1-43.9) fL Plt Count (163-337) K/mm3 MPV (9.4-12.3) fl Neutrophils % (Manual) (40-60) % Band Neutrophils % (0-10) % Lymphocytes % (Manual) (20-40) % Atypical Lymphs % % Monocytes % (Manual) (2-10) % Eosinophils % (Manual) (0.8-7.0) % Basophils % (Manual) (0.2-1.2) Platelet Estimate RBC Morph Comment PT (8.0-13.0) SECONDS INR Sodium (136-145) mEq/L Potassium (3.5-5.1) mEq/L Chloride (98-107) mEq/L Carbon Dioxide (21-32) mEq/L Anion Gap (5-15) BUN (7-18) mg/dL Creatinine (0.7-1.3) mg/dL Est Cr Clr Drug Dosing Estimated GFR (MDRD) (>60) mL/min BUN/Creatinine Ratio (14-18) Glucose (83-115) mg/dL Calcium (8.5-10.1) mg/dL Magnesium (1.8-2.4) mg/dl Total Bilirubin (0.2-1.0) mg/dL AST (15-37) U/L ALT (16-63) U/L Alkaline Phosphatase (46-116) U/L CK-MB (CK-2) (0-3.6) ng/ml Troponin I (0.00-0.056) ng/mL C-Reactive Protein (<1.0) mg/dL NT-Pro-B Natriuret Pep (0-450) pg/mL Total Protein (6.4-8.2) g/dl Albumin (3.4-5.0) g/dl Globulin gm/dL Albumin/Globulin Ratio (1-2) Urine Color Yellow (Yellow) Urine Appearance Clear (Clear) Urine pH 7.0 (5.0-8.0) Ur Specific Matthews 1.020 (1.005-1.030) Urine Protein Negative (Negative) Urine Glucose (UA) Negative (Negative) Urine Ketones Negative (Negative) Urine Occult Blood Negative (Negative) Urine Nitrite Negative (Negative) Urine Bilirubin Negative (Negative) Urine Urobilinogen 2.0 H (0.2-1.0) Ur Leukocyte Esterase Negative (Negative) Urine RBC Not seen (0-5) /hpf Urine WBC Not seen (0-5) /hpf Ur Epithelial Cells Not seen (0-5) /hpf Urine Bacteria Not seen (FEW) /hpf Urine Mucus Not seen (FEW) /hpf Meds: Medications Generic Name Dose Route Start Last Admin Trade Name Freq PRN Reason Stop Dose Admin Aspirin 81 mg 06/20/17 09:00 Aspirin PO DAILY [facility] Enoxaparin Sodium 40 mg 06/20/17 09:00 Lovenox SUBCUT DAILY [facility] Fentanyl 12 mcg 06/19/17 18:00 06/19/17 18:04 Duragesic TRDERM 12 mcg Q72H [facility] Administration Furosemide 40 mg 06/20/17 08:00 Lasix IVPUSH 06/20/17 08:01 NOW ONE Glipizide 10 mg 06/20/17 09:00 Glucotrol PO DAILY [facility] Guaifenesin 1,200 mg 06/19/17 17:51 Mucinex PO Q12HR PRN Congestion Levofloxacin/Dextrose 750 mg/ 150 mls @ 100 mls/hr 06/20/17 14:00 Premix IV Q24H [facility] Insulin Aspart 0 unit 06/19/17 17:00 Novolog SUBCUT QIDACANDBED [facility] Protocol Insulin Detemir 10 unit 06/19/17 21:00 Levemir SUBCUT BID [facility] Metoprolol Succinate 50 mg 06/20/17 09:00 Toprol Xl PO DAILY [facility] Miscellaneous Information 1 ea 06/22/17 18:00 Remove Patch TRDERM Q72H [facility] Morphine Sulfate 1 mg 06/19/17 17:35 06/19/17 18:04 Morphine IVPUSH 1 mg Q8H PRN Administration Pain Nicotine 21 mg 06/20/17 09:00 Habitrol TRDERM DAILY [facility] Nitroglycerin 0.4 mg 06/19/17 17:51 Nitrostat SL Q5M PRN Chest Pain Non-Formulary Medication 1 drop 06/19/17 21:00 Brimonidine EYEBOTH BID [facility] Non-Formulary Medication 1 drop 06/19/17 21:00 Carboxymethylcellulos/Glycerin [Eq Lubricating Eye Drops] EYEBOTH BID [facility] Non-Formulary Medication 1 puff 06/19/17 21:00 Fluticasone/Salmeterol INH BID [facility] Non-Formulary Medication 1,000 mg 06/19/17 21:00 Metformin Hcl [Fortamet] PO BID [facility] Non-Formulary Medication 100 mg 06/20/17 09:00 Sitagliptin PO DAILY [facility] Simvastatin 40 mg 06/19/17 21:00 Zocor PO BEDTIME [facility] Sodium Chloride 10 ml 06/19/17 11:16 06/19/17 12:39 Saline Flush FLUSH 10 ml ASDIRECTED PRN Administration Keep Vein Open Tramadol HCl 50 mg 06/19/17 17:34 Ultram PO Q6H PRN Pain Discontinued Medications Generic Name Dose Route Start Last Admin Trade Name Freq PRN Reason Stop Dose Admin Furosemide 40 mg 06/19/17 11:30 06/19/17 11:44 Lasix IVPUSH 06/19/17 11:31 40 mg NOW ONE Administration Hydromorphone HCl 0.25 mg 06/19/17 11:19 06/19/17 15:40 Dilaudid IVPUSH 06/19/17 11:20 Not Given ONETIME ONE Hydromorphone HCl 0.5 mg 06/19/17 11:20 06/19/17 15:41 Dilaudid IVPUSH 06/19/17 11:21 Not Given ONETIME ONE Levofloxacin/Dextrose 750 mg/ 150 mls @ 100 mls/hr 06/19/17 14:37 06/19/17 15 :34 Premix IV 06/19/17 16:06 100 mls/hr ONETIME ONE Administration Magnesium Sulfate 2 gm/ Premix 50 mls @ 25 mls/hr 06/19/17 18:08 IV 06/19/17 20:07 ONETIME ONE Levofloxacin 750 mg 06/19/17 18:45 Levaquin PO Q24H [facility] Ondansetron HCl 4 mg 06/19/17 11:19 06/19/17 12:39 Zofran IVPUSH 06/19/17 11:20 Not Given ONETIME ONE Tramadol HCl 50 mg 06/19/17 15:08 06/19/17 15:12 Ultram PO 06/19/17 15:09 50 mg ONETIME ONE Administration - Radiology Interpretation Free Text/Narrative:: 87-year-old male presents the ED for rate primary assessment of mid low back pain. This seems just started 5 days ago but much worse and no intense the last 3 days. It is a constant pain but worsened with movement. He's been ill with left lower lobar pneumonia with paroxysmal cough for over 2 weeks. He has finished a 10 day course of antibiotics and feels he is getting somewhat better. States it's taken its toll in terms of he is very weak with loss of weight and poor appetite. His legs were barely hold him today. Back pain is worsened by any movement and by coughing. It is felt primarily from T10-L2 clinically. On exam he appears to be in heart failure with elevated jugular venous pulsations and coarse crackles in both bases. 2+ edema lower extremities. Plan saline lock. Lasix 40 mg IV. Routine labs to include serum magnesium and cardiac markers. We'll have CT done on his thoracic and lumbar spine to rule out compression fractures. Will give Dilaudid 0.5 mg IV with Zofran 4 mg IV for back pain relief. - Re-Assessments/Exams Free Text/Narrative Re-Assessment/Exam: 06/19/17 12:12 patient apparently is allergic to Dilaudid. Therefore the order for Dilaudid IV was canceled. 06/19/17 12:49 Labs reveal elevated white count at 13.38. Mild left shift of 72 % neutrophils and 2% bands. Hemoglobin is slightly low at 10.8 with hematocrit of 34.7. Platelet count is 301,000. PT is 11.0 with an INR 1.01. Sodium is 136 with a potassium of 4.6. Chloride 99 bicarbonate is 32. Anion gap is normal at 9.6. BUN is 14 with a creatinine of 1.0. Glucose is elevated at 217. Calcium is normal at 9.0 magnesium low at 1.5. Bilirubin 0.4. AST is 34 ALT is 38. Alk phosphatase is 185. Troponin I is less than 0.017. CK-MB is 1.5. CRP is pending. BNP is 1062. Total protein is 8.0 but albumin fraction is low at 2.0. Urinalysis is essentially normal. 06/19/17 12:56 CT of the thoracal lumbar spine is been completed. It reveals advanced degenerative changes with multiple levels almost autofused anteriorly. This is primarily in the thoracic spine but particularly at L1-L2 was well. The neural foramina appear for the most part to be patent. There are no compression fractures. Chest x-ray reveals haziness with blunted costophrenic angles bilaterally. Diffuse vascular congestion evident. Borderline cardiomegaly. Main problem is that of malnutrition due to recent illness with pneumonia and poor appetite. Exacerbation of congestive heart failure. CRP did come back elevated at 22.1 this is strongly suggestive of an underlying bacterial infection. He will be started on Levaquin 750 mg IV. Case discussed with on-call hospice Dr. Wu and she will arrange admission to the hospital --[facility] surgery on telemetry. Departure - Departure Time of Disposition: 14:30 Disposition: Refer to Observation Condition: Fair Clinical Impression: Hypoxemia, URTI (acute upper respiratory infection) Acute thoracic back pain Qualifiers: Back pain laterality: right Qualified Code(s): M54.6 - Pain in thoracic spine Malnutrition Qualifiers: Malnutrition type: protein-calorie malnutrition Protein-calorie malnutrition severity: moderate Qualified Code(s): E44.0 - Moderate protein-calorie malnutrition CHF (congestive heart failure) Qualifiers: Congestive heart failure type: diastolic Congestive heart failure chronicity: acute on chronic Qualified Code(s): I50.33 - Acute on chronic diastolic ( congestive) heart failure Leukocytosis Qualifiers: Leukocytosis type: bandemia Qualified Code(s): D72.825 - Bandemia - Discharge Information - My Orders Last 24 Hours: My Active Orders 06/19/17 11:16 Sodium Chloride 0.9% [Saline Flush] 10 ml FLUSH ASDIRECTED PRN Peripheral IV Insertion Adult [OM.PC] Stat 06/19/17 11:24 Oxygen Therapy [RC] ASDIRECTED - Assessment/Plan Last 24 Hours: My Active Orders 06/19/17 11:16 Sodium Chloride 0.9% [Saline Flush] 10 ml FLUSH ASDIRECTED PRN Peripheral IV Insertion Adult [OM.PC] Stat 06/19/17 11:24 Oxygen Therapy [RC] ASDIRECTED
[2017-06-19] MEDS ORDERED: Sodium Chloride 0.9% 10 ML Syringe FLUSH PRN (11:16)
[2017-06-19] MEDS ORDERED: HYDROmorphone 0.5 MG/0.5 ML Syringe IVPUSH ONE ×2 (11:19→11:20)
[2017-06-19] MEDS ORDERED: Ondansetron 4 MG/2 ML SDV IVPUSH ONE (11:19)
[2017-06-19] MEDS ORDERED: Furosemide 40 MG/4 ML VIAL IVPUSH ONE (11:30)
--- NOTE | 2017-06-19 13:12 | CT ---
CT lumbar spine Technique: CT lumbar spine Technique: Multiple axial sections were obtained through the lumbar spine. Reconstructed coronal and sagittal images were obtained. Comparison: Prior MRI lumbar spine study of 02/04/13. Findings: Vertebral body heights are maintained. No compression deformities are seen. Disc space narrowing is noted at L3-4 and more severe at L4-5. Posterior osteophytes noted at L2-3, L3-4 and L4-5. Mild spondylolisthesis is noted at L3-4 due to severe degenerative apophyseal change. Mild diffuse circumferential disc bulge noted at L2-3 with lesser disc bulging seen within other portions of the lumbar spine. Mild central canal stenosis noted at L34. Impression: 1. Degenerative change as noted above. Nothing acute is seen. Degenerative change has slightly progressed from previous MRI. Diagnostic code #3
--- NOTE | 2017-06-19 13:12 | CT ---
CT thoracic spine Technique: Multiple axial sections were obtained through the thoracic spine. Reconstructed sagittal and coronal images were reviewed. Comparison: No previous thoracic spine study. Findings: Disc space narrowing is noted within the mid thoracic spine at multiple levels of vacuum phenomena. Anterior osteophytes are seen throughout the thoracic spine. Mild degenerative apophyseal change is scattered throughout the thoracic spine. No bony central or bony neural foraminal stenosis is seen. No acute fracture or abnormal subluxation is seen. Visualized lung shows diffuse pulmonary fibrosis. Impression: 1. Diffuse degenerative change. Lung lau show diffuse fibrosis. 2. Nothing acute is seen on CT study of the thoracic spine. Diagnostic code #2
--- NOTE | 2017-06-19 13:54 | CR ---
Chest: Frontal view of the chest was obtained. Comparison: Prior chest x-ray of 05/19/17. Diffuse increased lung markings are seen which appear fairly stable from prior exam presumably due to fibrosis. No acute pulmonary densities are seen. Blunting of the costophrenic angles are seen which appear stable. Calcified pleural plaque is noted within the right base. Previous sternotomy is noted. Heart size and mediastinum are within normal limits. Bony structures are somewhat osteopenic. Vascular calcification is noted. Impression: 1. Diffuse increased lung markings appearing fairly stable from prior exam compatible with fibrosis. 2. Other stable findings as noted above. Nothing acute is appreciated. Diagnostic code #3
[2017-06-19] MEDS ORDERED: Levofloxacin/Dextrose 5%-Water 750 MG in Premix Bag 1 BAG IV ONE (14:37)
[2017-06-19] MEDS ORDERED: traMADol 50 MG Tab PO ONE (15:08)
[2017-06-19] MEDS ORDERED: Morphine 2 MG/ML Syringe IVPUSH PRN (17:35)
[2017-06-19] MEDS ORDERED: Nitroglycerin 0.4 MG Tab.SL SL PRN (17:51)
[2017-06-19] MEDS ORDERED: fentaNYL 12 MCG/HR Transdermal Patch TRDERM SCH (18:00)
--- NOTE | 2017-06-19 18:07 | PCM.HP ---
H&P History of Present Illness - General Date of Service: 06/19/17 Admit Problem/Dx: Admission Diagnosis/Problem Admission Diagnosis/Problem Pneumonia Source of Information: Patient, Provider History Limitations: Reports: No Limitations - History of Present Illness Initial Comments - Free Text/Narative: 87 year old male with history of LLL lung abscess, recently treated for LLL infiltrate in April 2017. He presents with a complaint of mid back pain over 1-2 weeks. The pain is exacerbated by coughing. A CT of thoracolumbar spine documents degenerative changes on multiple levels. Compression fractures are not seen. He also has an elevated WBC/CRP and appears to have possible LLL infiltrate with mild bilateral congestion on CXR. Treatment was initiated for PNA as well as pain management. The patient is deconditioned, relucatant to move with the recent back discomfort. Onset of Symptoms: Reports: Gradual Symptom Onset Date: 06/14/17 Duration of Symptoms: Reports: Day(s):, Getting Worse Location: Reports: Back Quality: Reports: Sharp Severity: Moderate Improves with: Reports: Medication Worsens with: Reports: None Associated Symptoms: Reports: Cough Lower Back Pain Score (Numeric/FACES): 8 - Related Data Allergies/Adverse Reactions: Allergies Allergy/AdvReac Type Severity Reaction Status Date / Time hydromorphone [From Dilaudid] Allergy Rash Verified 06/19/17 11:01 Penicillins Allergy Rash Verified 06/19/17 11:01 IV dye Allergy Hives Uncoded 05/10/17 11:23 Home Medications: Home Meds Aspirin [Children's Aspirin] 81 mg PO DAILY 04/28/14 [History] Losartan [Cozaar] 25 mg PO DAILY 04/28/14 [History] Metoprolol Succinate [Toprol XL] 50 mg PO DAILY 04/28/14 [History] Multivitamin [Multi-Vitamin Daily] 1 tab PO DAILY 04/28/14 [History] [place]-3 Fatty Acids [[place]-3] 1,000 mg PO DAILY 04/28/14 [History] Simvastatin [Zocor] 40 mg PO BEDTIME 04/28/14 [History] SitaGLIPtin [Januvia] 100 mg PO DAILY 04/28/14 [History] metFORMIN HCl [Fortamet] 1,000 mg PO BID 04/28/14 [History] Acetaminophen [Tylenol] 500 mg PO DAILY PRN 06/10/14 [History] Acetaminophen [Tylenol Extra Strength] 500 mg PO Q4HR PRN 05/10/17 [History] Albuterol [IJD: Albuterol HFA] 2 puff INH ASDIRECTED PRN 05/10/17 [History] Albuterol [Proventil Neb Soln] 2.5 mg NEB ASDIRECTED PRN 05/10/17 [History] Brimonidine [Alphagan P 0.15% Ophth Soln] 1 drop EYEBOTH BID 05/10/17 [History] Carboxymethylcellulos/Glycerin [Eq Lubricating Eye Drops] 1 drop EYEBOTH BID [History] Fluticasone/Salmeterol [Advair 250-50 Diskus] 1 puff INH BID 05/10/17 [History] Nitroglycerin [Nitrostat] 0.4 mg SL Q5M PRN 05/10/17 [History] Tiotropium [Spiriva Handihaler] 1 cap INH DAILY 05/10/17 [History] glipiZIDE [Glucotrol] 10 mg PO DAILY 05/10/17 [History] Insulin Detemir [Levemir] 10 unit SUBCUT BID #1 pen 05/17/17 [Rx] Magnesium Oxide 400 mg PO BID #60 tablet 05/17/17 [Rx] Nicotine [Habitrol] 21 mg TRDERM DAILY #30 patch 05/17/17 [Rx] Prednisone [IJD: predniSONE] 20 mg PO DAILY #3 tablet 05/17/17 [Rx] Prednisone [IJD: predniSONE] 40 mg PO DAILY #6 tablet 05/17/17 [Rx] guaiFENesin [Mucinex] 1,200 mg PO Q12HR PRN #60 tab.er 05/17/17 [Rx] predniSONE 10 mg PO DAILY #3 tablet 05/17/17 [Rx] predniSONE 30 mg PO DAILY #9 tablet 05/17/17 [Rx] Past Medical History HEENT History: Reports: Hard of Hearing, Impaired Vision Other HEENT History: corrected with glasses and PATRICIA Cardiovascular History: Reports: CAD, Heart Failure, High Cholesterol, Hypertension, SOB on Exertion, Stents, Other (See Below) Other Cardiovascular History: cardiomegaly Respiratory History: Reports: Bronchitis, Recurrent, COPD, Pneumonia, Recurrent , SOB Musculoskeletal History: Reports: Arthritis Neurological History: Reports: Concussion Endocrine/Metabolic History: Reports: Diabetes, Type II - Infectious Disease History Infectious Disease History: Reports: Chicken Pox, Mumps, Rubella - Past Surgical History HEENT Surgical History: Reports: Cataract Surgery Cardiovascular Surgical History: Reports: Coronary Artery Bypass Musculoskeletal Surgical History: Reports: None Social & Family History - Family History Family Medical History: Noncontributory - Tobacco Use Smoking Status *Q: Unknown Ever Smoked Years of Tobacco use: 45 Packs/Tins Daily: 0.2 Used Tobacco, but Quit: No Second Hand Smoke Exposure: No - Caffeine Use Caffeine Use: Reports: Coffee, Tea Other Caffeine Use: 2 cups/day - Alcohol Use Days Per Week of Alcohol Use: 0 - Recreational Drug Use Recreational Drug Use: No - Living Situation & Occupation Living situation: Reports: Extended Care Facility Occupation: Retired (Lives at [facility].) H&P Review of Systems - Review of Systems: Review Of Systems: See Below General: Reports: Malaise, Weakness, Fatigue, Decreased Appetite Pulmonary: Reports: Shortness of Breath, Cough Cardiovascular: Reports: Dyspnea on Exertion Gastrointestinal: Reports: Abdominal Pain, Constipation, Diarrhea, Decreased Appetite Musculoskeletal: Reports: Neck Pain, Shoulder Pain, Back Pain Psychiatric: Reports: No Symptoms Neurological: Reports: No Symptoms Hematologic/Lymphatic: Reports: No Symptoms Immunologic: Reports: No Symptoms Exam - Exam Exam: See Below - Vital Signs Vital Signs: Last Vital Signs Temp 35.8 C 06/19/17 10:55 Pulse 106 H 06/19/17 15:26 Resp 22 H 06/19/17 15:26 BP 108/46 L 06/19/17 15:26 Pulse Ox 92 L 06/19/17 17:16 - Exam Quality Assessment: Supplemental Oxygen General: Alert, Oriented, Cooperative, Mild Distress HEENT: Conjunctiva Clear, Nares Patent, Normal Nasal Septum, Pupils Equal, Pupils Reactive, PERRLA Neck: Supple, Trachea Midline Lungs: Normal Respiratory Effort, Decreased Breath Sounds, Wheezing Cardiovascular: Regular Rate, Regular Rhythm GI/Abdominal Exam: Normal Bowel Sounds, Soft, Non-Tender, No Organomegaly, No Distention (Male) Exam: Deferred Rectal (Males) Exam: Deferred Back Exam: Normal Inspection, CVA Tenderness (R), Decreased Range of Motion Extremities: Normal Inspection, Pedal Edema (1+) Skin: Warm Neurological: Cranial Nerves Intact, Normal Speech Neuro Extensive - Mental Status: Alert, Oriented x3 Neuro Extensive - Motor, Sensory, Reflexes: CN II-XII Intact Psychiatric: Alert, Depressed - Patient Data Lab Results Last 24 hrs: Laboratory Results - last 24 hr 06/19/17 Range/Units 17:09 POC Glucose 179 H (83-110) mg/dL Result Diagrams: 06/19/17 11:40 06/19/17 11:40 *Q Meaningful Use (ADM) - VTE *Q VTE Criteria *Q: - Stroke *Q Stroke Criteria *Q: - AMI *Q AMI Criteria *Q: - Problem List (1) Back pain of thoracolumbar region SNOMED Code(s): 284525485 ICD Code: M54.5 - LOW BACK PAIN Status: Acute Current Visit: Yes (2) COLD, Chronic obstructive lung disease SNOMED Code(s): 97584823 ICD Code: J44.9 - CHRONIC OBSTRUCTIVE PULMONARY DISEASE, UNSPECIFIED Status : Acute Priority: High Current Visit: No (3) Dehydration SNOMED Code(s): 77997168 ICD Code: E86.0 - DEHYDRATION Status: Acute Current Visit: No (4) Pneumonia SNOMED Code(s): 069676161 ICD Code: J18.9 - PNEUMONIA, UNSPECIFIED ORGANISM Status: Acute Priority : High Current Visit: No Qualifiers: Pneumonia type: due to unspecified organism Laterality: left Lung location: lower lobe of lung Qualified Code(s): J18.1 - Lobar pneumonia, unspecified organism Problem List Initiated/Reviewed/Updated: Yes Orders Last 24hrs: Active Orders 24 hr Category Date Time Status Admission Status [Patient Status] [ADT] Routine ADT 06/19/17 16:01 Active Blood Glucose Check, Bedside [RC] QIDACANDBED Care 06/19/17 16:42 Active 2 Gram Sodium Diet [DIET] Diet 06/19/17 Dinner Active ADA Diabetic [[place] [employer] Diet] [DIET Diet 06/19/17 Dinner Active ] Aspirin Med 06/20/17 09:00 Ordered 81 mg PO DAILY Brimonidine Med 06/19/17 21:00 Ordered 1 drop EYEBOTH BID Carboxymethylcellulos/Glycerin [Eq Lubricating Eye Med 06/19/17 21:00 Ordered Drops] 1 drop EYEBOTH BID Fluticasone/Salmeterol Med 06/19/17 21:00 Ordered 1 puff INH BID Insulin Aspart [NovoLOG] Med 06/19/17 17:00 Active See Protocol SUBCUT QIDACANDBED Insulin Detemir [Levemir] Med 06/19/17 21:00 Ordered 10 unit SUBCUT BID Metoprolol Succinate [Toprol XL] Med 06/20/17 09:00 Ordered 50 mg PO DAILY Morphine Med 06/19/17 17:35 Ordered 1 mg IVPUSH Q8H PRN Nicotine [Habitrol] Med 06/20/17 09:00 Ordered 21 mg TRDERM DAILY Nitroglycerin [Nitrostat] Med 06/19/17 17:51 Ordered 0.4 mg SL Q5M PRN Remove Patch Med 06/22/17 18:00 Active 1 ea TRDERM Q72H Simvastatin [Zocor] Med 06/19/17 21:00 Ordered 40 mg PO BEDTIME SitaGLIPtin Med 06/20/17 09:00 Ordered 100 mg PO DAILY fentaNYL [Duragesic] Med 06/19/17 17:45 Ordered 12 mcg TRDERM Q72H glipiZIDE [Glucotrol] Med 06/20/17 09:00 Ordered 10 mg PO DAILY guaiFENesin [Mucinex] Med 06/19/17 17:51 Ordered 1,200 mg PO Q12HR PRN metFORMIN HCl [Fortamet] Med 06/19/17 21:00 Ordered 1,000 mg PO BID traMADol [Ultram] Med 06/19/17 17:34 Ordered 50 mg PO Q6H PRN Medication Orders Aspirin (Aspirin) 81 mg PO DAILY [facility] Fentanyl (Duragesic) 12 mcg TRDERM Q72H [facility] Last Admin: 06/19/17 18:04 Dose: 12 mcg Glipizide (Glucotrol) 10 mg PO DAILY [facility] Guaifenesin (Mucinex) 1,200 mg PO Q12HR PRN PRN Reason: Congestion Insulin Aspart (Novolog) 0 unit SUBCUT QIDACANDBED MARGOT PRN Reason: Protocol Insulin Detemir (Levemir) 10 unit SUBCUT BID [facility] Metoprolol Succinate (Toprol Xl) 50 mg PO DAILY [facility] Miscellaneous Information (Remove Patch) 1 ea TRDERM Q72H [facility] Morphine Sulfate (Morphine) 1 mg IVPUSH Q8H PRN PRN Reason: Pain Last Admin: 06/19/17 18:04 Dose: 1 mg Nicotine (Habitrol) 21 mg TRDERM DAILY [facility] Nitroglycerin (Nitrostat) 0.4 mg SL Q5M PRN PRN Reason: Chest Pain Non-Formulary Medication (Brimonidine) 1 drop EYEBOTH BID [facility] Non-Formulary Medication (Carboxymethylcellulos/Glycerin [Eq Lubricating Eye Drops]) 1 drop EYEBOTH BID [facility] Non-Formulary Medication (Fluticasone/Salmeterol) 1 puff INH BID [facility] Non-Formulary Medication (Metformin Hcl [Fortamet]) 1,000 mg PO BID [facility] Non-Formulary Medication (Sitagliptin) 100 mg PO DAILY [facility] Simvastatin (Zocor) 40 mg PO BEDTIME [facility] Sodium Chloride (Saline Flush) 10 ml FLUSH ASDIRECTED PRN PRN Reason: Keep Vein Open Last Admin: 06/19/17 12:39 Dose: 10 ml Tramadol HCl (Ultram) 50 mg PO Q6H PRN PRN Reason: Pain Assessment/Plan Comment:: Impression: Query LLL infiltrate, history of CAP 04/2017 History of LLL lung abscess Back pain with degenerative changes thoracolumbar spine; no compression fractures are noted. Query CHF, mild bilateral pulmonary congestion. Chronic DM type 2 History of CAD/CABG HLD HTN HF COPD BPH Plan: Diurese as tolerated IV ATB Home meds Novolog SS CHF education PT/OT consults consult for SNF for rehab stay Daily labs DVT/GI prophylaxis
[2017-06-19] MEDS ORDERED: Magnesium Sulfate/Water 2 GM in Premix Bag 1 BAG IV ONE (18:08)
[2017-06-19] MEDS ORDERED: Levofloxacin 750 MG Tab PO SCH (18:45)
[2017-06-19] MEDS: Insulin Aspart 100 Units/ML 3 ML Pen SUBCUT SCH ×2 (19:44→21:45)
[2017-06-19] MEDS ORDERED: SIMVASTATIN 40 MG PO SCH (21:00)
[2017-06-19] MEDS ORDERED: Insulin Detemir 100 Units/ML 3 ML Pen SUBCUT SCH (21:00)
[2017-06-20] MEDS ORDERED: Furosemide 40 MG/4 ML VIAL IVPUSH ONE (08:00)
[2017-06-20] MEDS: Insulin Aspart 100 Units/ML 3 ML Pen SUBCUT SCH ×4 (08:22→21:48)
[2017-06-20] MEDS: Enoxaparin 40 MG/0.4 ML Syringe SUBCUT SCH (08:23)
[2017-06-20] MEDS ORDERED: METOPROLOL SUCCINATE 50 MG PO SCH (09:00)
[2017-06-20] MEDS ORDERED: SITAGLIPTIN 100 MG PO SCH (09:00)
[2017-06-20] MEDS ORDERED: GLIPIZIDE 10 MG PO SCH (09:00)
[2017-06-20] MEDS ORDERED: Nicotine 21 MG/24 Hr Patch TRDERM SCH (09:00)
[2017-06-20] MEDS ORDERED: Magnesium Sulfate/Water 2 GM in Premix Bag 1 BAG IV ONE (09:35)
[2017-06-20] MEDS ORDERED: Albuterol/Ipratropium 3.0-0.5 MG/3 ML Neb Soln INH SCH ×2 (10:00→10:45)
[2017-06-20] MEDS: REFRESH OPTIVE EYEBOTH SCH ×3 (10:04→21:30)
[2017-06-20] MEDS: METFORMIN 500 MG PO SCH ×2 (10:04→11:38)
[2017-06-20] MEDS: BRIMONIDINE 0.15% EYEBOTH SCH ×3 (10:04→21:30)
[2017-06-20] MEDS: Aspirin 81 MG Tab.Chew PO SCH (10:16)
[2017-06-20] MEDS: Nicotine 7 MG/24 Hr Patch TRDERM SCH (10:17)
[2017-06-20] MEDS ORDERED: Metoprolol Succinate 50 MG Tab.ER PO SCH (10:17)
[2017-06-20] MEDS ORDERED: Morphine 2 MG/ML Syringe IVPUSH ONE (10:30)
[2017-06-20] MEDS ORDERED: Albuterol 0.083% 2.5 MG/3 ML Neb Soln NEB PRN (10:37)
[2017-06-20] MEDS ORDERED: fentaNYL 25 MCG/HR Transdermal Patch TRDERM SCH (10:41)
[2017-06-20] MEDS: Metoprolol Succinate 50 MG Tab.ER PO SCH (10:46)
[2017-06-20] MEDS: Remove Patch*FENTANYL TRDERM SCH (10:54)
[2017-06-20] MEDS: Formoterol/Mometasone 200-5 MCG 8.8 GM Inhaler IH SCH ×3 (11:24→22:45)
[2017-06-20] MEDS: Albuterol/Ipratropium 3.0-0.5 MG/3 ML Neb Soln INH SCH ×2 (15:12→22:45)
--- NOTE | 2017-06-20 16:49 | PCM.PN ---
- General Info Date of Service: 06/20/17 Functional Status: Reports: Tolerating Diet, Other (complaint of back pain) - Review of Systems General: Reports: Weakness, Fatigue HEENT: Reports: No Symptoms Pulmonary: Reports: No Symptoms Cardiovascular: Reports: No Symptoms Gastrointestinal: Reports: No Symptoms Genitourinary: Reports: No Symptoms Musculoskeletal: Reports: Back Pain (mid back: thoracolumbar) Skin: Reports: No Symptoms Neurological: Reports: No Symptoms Psychiatric: Reports: No Symptoms - Patient Data Vitals - Most Recent: Last Vital Signs Temp 36.4 C 06/20/17 15:59 Pulse 92 06/20/17 15:59 Resp 20 06/20/17 15:59 BP 110/95 H 06/20/17 15:59 Pulse Ox 92 L 06/20/17 15:59 Weight - Most Recent: 73.391 kg I&O - Last 24 Hours: Intake & Output 06/20/17 06/20/17 06/20/17 06:59 14:59 22:59 Intake Total 440 600 Output Total 500 Balance 440 100 Lab Results Last 24 Hours: Laboratory Results - last 24 hr 06/20/17 Range/Units 11:43 POC Glucose 241 H (83-110) mg/dL Carlos Results Last 24 Hours: Microbiology 06/20/17 12:26 Influenza Type A Antigen Screen - Final Nasal Aspirate, Right NEGATIVE INFLUENZA A VIRUS AG Influenza Type B Antigen Screen - Final NEGATIVE INFLUENZA B VIRUS AG Med Orders - Current: Current Medications Albuterol (Proventil Neb Soln) 2.5 mg NEB Q4HR PRN PRN Reason: Shortness of Breath Albuterol/Ipratropium (Duoneb 3.0-0.5 Mg/3 Ml) 3 ml INH Q6H [facility] Last Admin: 06/20/17 15:12 Dose: 3 ml Aspirin (Aspirin) 81 mg PO DAILY [facility] Last Admin: 06/20/17 10:16 Dose: 81 mg Enoxaparin Sodium (Lovenox) 40 mg SUBCUT DAILY [facility] Last Admin: 06/20/17 08:23 Dose: 40 mg Fentanyl (Duragesic) 25 mcg TRDERM Q72H [facility] Last Admin: 06/20/17 10:59 Dose: 25 mcg Glipizide (Glucotrol) 10 mg PO DAILY@0630 [facility] Last Admin: 01/02/18 10:49 Dose: 10 mg Guaifenesin (Mucinex) 1,200 mg PO Q12HR PRN PRN Reason: Congestion Levofloxacin/Dextrose 750 mg/ (Premix) 150 mls @ 100 mls/hr IV Q24H [facility] Insulin Aspart (Novolog) 0 unit SUBCUT QIDACANDBED [facility] PRN Reason: Protocol Last Admin: 06/20/17 11:53 Dose: 2 unit Metformin HCl (Glucophage) 1,000 mg PO BIDMEALS [facility] Metoprolol Succinate (Toprol Xl) 50 mg PO DAILY [facility] Last Admin: 06/20/17 10:46 Dose: 50 mg Miscellaneous Information (Remove Patch) 1 ea TRDERM Q72H [facility] Last Admin: 06/20/17 10:54 Dose: 1 ea Mometasone Furoate/Formoterol Fumar (Dulera 200-5 Mcg) 2 puff IH BID [facility] Last Admin: 06/20/17 11:27 Dose: 2 puff Morphine Sulfate (Morphine) 2 mg IVPUSH Q6H PRN PRN Reason: Pain Nicotine (Habitrol) 7 mg TRDERM DAILY [facility] Last Admin: 06/20/17 10:17 Dose: 7 mg Nitroglycerin (Nitrostat) 0.4 mg SL Q5M PRN PRN Reason: Chest Pain Ptom - Brimonidine 0 (.15% Ophth Soln) 1 each EYEBOTH BID [facility] Last Admin: 06/20/17 10:53 Dose: 1 each Ptom - Refresh (Optive Ophth Soln) 0 each EYEBOTH BID [facility] Last Admin: 06/20/17 10:53 Dose: 1 each Ptom - Roflumilast (500mg (Daliresp)) 1 each PO DAILY [facility] Saxagliptin Hydrochloride (Onglyza) 5 mg PO DAILY [facility] Simvastatin (Zocor) 40 mg PO BEDTIME [facility] Sodium Chloride (Saline Flush) 10 ml FLUSH ASDIRECTED PRN PRN Reason: Keep Vein Open Last Admin: 06/19/17 12:39 Dose: 10 ml Tiotropium [place] (Spiriva Handihaler) 18 mcg INH DAILY [facility] Tramadol HCl (Ultram) 50 mg PO Q6H PRN PRN Reason: Pain Discontinued Medications Albuterol/Ipratropium (Duoneb 3.0-0.5 Mg/3 Ml) ml INH Q6H [facility] Albuterol/Ipratropium (Duoneb 3.0-0.5 Mg/3 Ml) 3 ml INH Q6H [facility] Last Admin: 06/20/17 11:27 Dose: 3 ml Fentanyl (Duragesic) 12 mcg TRDERM Q72H [facility] Last Admin: 06/19/17 18:04 Dose: 12 mcg Furosemide (Lasix) 40 mg IVPUSH NOW ONE Stop: 06/19/17 11:31 Last Admin: 06/19/17 11:44 Dose: 40 mg Furosemide (Lasix) 40 mg IVPUSH NOW ONE Stop: 06/20/17 08:01 Last Admin: 06/20/17 08:22 Dose: 40 mg Glipizide (Glucotrol) 10 mg PO DAILY@0630 [facility] Hydromorphone HCl (Dilaudid) 0.25 mg IVPUSH ONETIME ONE Stop: 06/19/17 11:20 Last Admin: 06/19/17 15:40 Dose: Not Given Hydromorphone HCl (Dilaudid) 0.5 mg IVPUSH ONETIME ONE Stop: 06/19/17 11:21 Last Admin: 06/19/17 15:41 Dose: Not Given Levofloxacin/Dextrose 750 mg/ (Premix) 150 mls @ 100 mls/hr IV ONETIME ONE Stop: 06/19/17 16:06 Last Admin: 06/19/17 15:34 Dose: 100 mls/hr Magnesium Sulfate 2 gm/ Premix 50 mls @ 25 mls/hr IV ONETIME ONE Stop: 06/19/17 20:07 Last Admin: 06/19/17 21:29 Dose: 25 mls/hr Magnesium Sulfate 2 gm/ Premix 50 mls @ 25 mls/hr IV ONETIME ONE Stop: 06/20/17 11:34 Last Admin: 06/20/17 10:16 Dose: 25 mls/hr Insulin Detemir (Levemir) 10 unit SUBCUT BID [facility] Last Admin: 06/20/17 11:37 Dose: Not Given Levofloxacin (Levaquin) 750 mg PO Q24H [facility] Last Admin: 06/20/17 11:37 Dose: Not Given Metoprolol Succinate (Toprol Xl) 50 mg PO DAILY [facility] Morphine Sulfate (Morphine) 1 mg IVPUSH Q8H PRN PRN Reason: Pain Last Admin: 06/19/17 18:04 Dose: 1 mg Morphine Sulfate (Morphine) 2 mg IVPUSH ONETIME ONE Stop: 06/20/17 10:31 Last Admin: 06/20/17 10:43 Dose: 2 mg Nicotine (Habitrol) 21 mg TRDERM DAILY [facility] Ondansetron HCl (Zofran) 4 mg IVPUSH ONETIME ONE Stop: 06/19/17 11:20 Last Admin: 06/19/17 12:39 Dose: Not Given Ptom - Glipizide (10mg Tablet) 1 each PO DAILY@0630 [facility] Last Admin: 06/20/17 11:38 Dose: Not Given Ptom - Metformin (500mg Tablet) 2 each PO BIDMEALS [facility] Last Admin: 06/20/17 11:38 Dose: Not Given Ptom: Metoprolol Succinate 50mg Tablet 1 each PO DAILY [facility] Last Admin: 06/20/17 11:38 Dose: Not Given Ptom: Simvastatin (40mg Tablet) 1 each PO BEDTIME [facility] Last Admin: 06/20/17 10:04 Dose: Not Given Ptom - Sitagliptin ( (Januvia) 100mg) 1 each PO DAILY [facility] Last Admin: 06/20/17 10:50 Dose: 1 each Tramadol HCl (Ultram) 50 mg PO ONETIME ONE Stop: 06/19/17 15:09 Last Admin: 06/19/17 15:12 Dose: 50 mg - Exam Quality Assessment: DVT Prophylaxis General: Alert, Oriented, Cooperative, Mild Distress HEENT: Pupils Equal, Pupils Reactive, EOMI Neck: Supple, Trachea Midline, No JVD Lungs: Normal Respiratory Effort, Decreased Breath Sounds (L>R) Cardiovascular: Regular Rate GI/Abdominal Exam: Normal Bowel Sounds, Soft, Non-Tender, No Organomegaly, No Distention (Male) Exam: Deferred Back Exam: Normal Inspection Extremities: Normal Inspection Skin: Warm Neurological: No New Focal Deficit, Normal Speech Psy/Mental Status: Alert, Depressed - Problem List & Annotations (1) Back pain of thoracolumbar region SNOMED Code(s): 149376270 Code(s): M54.5 - LOW BACK PAIN Status: Acute Current Visit: Yes (2) COLD, Chronic obstructive lung disease SNOMED Code(s): 57786029 Code(s): J44.9 - CHRONIC OBSTRUCTIVE PULMONARY DISEASE, UNSPECIFIED Status : Acute Priority: High Current Visit: No (3) Dehydration SNOMED Code(s): 16104482 Code(s): E86.0 - DEHYDRATION Status: Acute Current Visit: No (4) Pneumonia SNOMED Code(s): 035799390 Code(s): J18.9 - PNEUMONIA, UNSPECIFIED ORGANISM Status: Acute Priority: High Current Visit: No Qualifiers: Pneumonia type: due to unspecified organism Laterality: left Lung location: lower lobe of lung Qualified Code(s): J18.1 - Lobar pneumonia, unspecified organism - Problem List Review Problem List Initiated/Reviewed/Updated: Yes - My Orders Last 24 Hours: My Active Orders 06/20/17 10:35 Metoprolol Succinate [Toprol XL] 50 mg PO DAILY glipiZIDE [Glucotrol] 10 mg PO DAILY@0630 06/20/17 10:37 Albuterol [Proventil Neb Soln] 2.5 mg NEB Q4HR PRN 06/20/17 10:41 Morphine 2 mg IVPUSH Q6H PRN fentaNYL [Duragesic] 25 mcg TRDERM Q72H 06/20/17 14:31 Simvastatin [Zocor] 40 mg PO BEDTIME 06/20/17 14:34 Saxagliptin [Onglyza] 5 mg PO DAILY 06/20/17 15:00 Albuterol/Ipratropium [DuoNeb 3.0-0.5 MG/3 ML] 3 ml INH Q6H 06/20/17 17:00 metFORMIN [Glucophage] 1,000 mg PO BIDMEALS 06/21/17 09:00 Patient's Own Medication [Ptom] 1 each PO DAILY Tiotropium [Spiriva HandiHaler] 18 mcg INH DAILY - Plan Plan:: Impression: Query LLL infiltrate, history of CAP 04/2017 History of LLL lung abscess Back pain with degenerative changes thoracolumbar spine; no compression fractures are noted; poor pain control Query CHF, mild bilateral pulmonary congestion. Chronic DM type 2 History of CAD/CABG HLD HTN HF COPD BPH Plan: Painmgt: fentanyl increase to 25 mcg; continue tramadol; increase MSO4 Diurese as tolerated IV ATB Home meds Novolog SS CHF education PT/OT consults consult for SNF for rehab stay Daily labs DVT/GI prophylaxis
[2017-06-20] MEDS: metFORMIN 500 MG Tab PO SCH (17:01)
[2017-06-20] MEDS: Levofloxacin/Dextrose 5%-Water 750 MG in Premix Bag 1 BAG IV SCH (17:03)
[2017-06-20] MEDS: Simvastatin 40 MG Tab PO SCH (21:39)
[2017-06-21] MEDS: Morphine 2 MG/ML Syringe IVPUSH PRN ×2 (00:44→06:16)
[2017-06-21] MEDS: traMADol 50 MG Tab PO PRN ×2 (01:52→08:47)
[2017-06-21] MEDS: Albuterol/Ipratropium 3.0-0.5 MG/3 ML Neb Soln INH SCH ×4 (03:11→21:24)
[2017-06-21] MEDS: metFORMIN 500 MG Tab PO SCH (06:49)
[2017-06-21] MEDS: Formoterol/Mometasone 200-5 MCG 8.8 GM Inhaler IH SCH (08:24)
[2017-06-21] MEDS: Aspirin 81 MG Tab.Chew PO SCH (08:50)
[2017-06-21] MEDS: Nicotine 7 MG/24 Hr Patch TRDERM SCH (08:50)
[2017-06-21] MEDS: Enoxaparin 40 MG/0.4 ML Syringe SUBCUT SCH (08:54)
[2017-06-21] MEDS: Saxagliptin 5 MG Tab PO SCH (08:56)
[2017-06-21] MEDS: BRIMONIDINE 0.15% EYEBOTH SCH ×2 (08:57→21:05)
[2017-06-21] MEDS: REFRESH OPTIVE EYEBOTH SCH ×2 (08:59→21:00)
[2017-06-21] MEDS ORDERED: Tiotropium Inhaler 18 MCG Inhalation Powder Cap Kit of 5 INH SCH (09:00)
[2017-06-21] MEDS: Insulin Aspart 100 Units/ML 3 ML Pen SUBCUT SCH ×4 (09:07→21:45)
[2017-06-21] MEDS: Metoprolol Succinate 50 MG Tab.ER PO SCH (09:08)
[2017-06-21] MEDS ORDERED: hydrALAZINE 20 MG/ML SDV IVPUSH PRN (09:26)
[2017-06-21] MEDS: ROFLUMILAST 500 MG PO SCH (09:26)
--- NOTE | 2017-06-21 09:49 | PCM.PN ---
- General Info Date of Service: 06/21/17 Admission Dx/Problem (Free Text): Admission Diagnosis/Problem Admission Diagnosis/Problem Pneumonia Griffin is seen this morning, resting in bed. Patient was with complaints of right leg pain all night long, did not sleep well. This is a new complaint for him today. Back pain is also there but leg pain is more bothersome than back pain at this time, 7/10 at rest, 10/10 with movement. Ask him where his leg hurts he says "all over" and "my knee really hurts". Cough is improved, states nonproductive today. Denies SOB or CP. No abd pain or nausea. He ate a good breakfast. Functional Status: Reports: Tolerating Diet, Urinating. Denies: Ambulating ( standing only at this time, causes leg and back pain) - Review of Systems General: Reports: Weakness. Denies: Fever HEENT: Reports: No Symptoms. Denies: Headaches Pulmonary: Reports: Cough. Denies: Shortness of Breath, Sputum (none today- was with slight production yesterday), Wheezing Cardiovascular: Reports: No Symptoms. Denies: Chest Pain Gastrointestinal: Reports: No Symptoms. Denies: Abdominal Pain, Diarrhea, Nausea, Vomiting Genitourinary: Reports: No Symptoms Musculoskeletal: Reports: Back Pain, Leg Pain (rt leg/knee) Neurological: Reports: No Symptoms Psychiatric: Reports: No Symptoms - Patient Data Vitals - Most Recent: Last Vital Signs Temp 98.8 F 06/21/17 07:30 Pulse 107 H 06/21/17 09:08 Resp 22 H 06/21/17 07:30 BP 124/74 06/21/17 09:08 Pulse Ox 97 06/21/17 08:24 Weight - Most Recent: 161 lb 1.6 oz I&O - Last 24 Hours: Intake & Output 06/20/17 06/21/17 06/21/17 22:59 06:59 14:59 Intake Total 1010 1200 Output Total 900 500 Balance 110 700 Lab Results Last 24 Hours: Laboratory Results - last 24 hr 06/20/17 06/20/17 06/20/17 Range/Units 11:43 17:00 21:45 WBC (4.23-9.07) K/mm3 RBC (4.63-6.08) M/mm3 Hgb (13.7-17.5) gm/L Hct (40.1-51.0) % MCV (79.0-92.2) fl MCH (25.7-32.2) pg MCHC (32.2-35.5) g/dl RDW Std Deviation (35.1-43.9) fL Plt Count (163-337) K/mm3 MPV (9.4-12.3) fl Neut % (Auto) (34.0-67.9) % Lymph % (Auto) (21.8-53.1) % Collin % (Auto) (5.3-12.2) % Eos % (Auto) (0.8-7.0) Baso % (Auto) (0.1-1.2) % Neut # (Auto) (1.78-5.38) K/mm3 Lymph # (Auto) (1.32-3.57) K/mm3 Collin # (Auto) (0.30-0.82) K/mm3 Eos # (Auto) (0.04-0.54) K/mm3 Baso # (Auto) (0.01-0.08) K/mm3 Manual Slide Review Sodium (136-145) mEq/L Potassium (3.5-5.1) mEq/L Chloride (98-107) mEq/L Carbon Dioxide (21-32) mEq/L Anion Gap (5-15) BUN (7-18) mg/dL Creatinine (0.7-1.3) mg/dL Est Cr Clr Drug Dosing mL/min Estimated GFR (MDRD) (>60) mL/min BUN/Creatinine Ratio (14-18) Glucose (83-115) mg/dL POC Glucose 241 H 238 H 194 H (83-110) mg/dL Calcium (8.5-10.1) mg/dL Magnesium (1.8-2.4) mg/dl C-Reactive Protein (<1.0) mg/dL 06/21/17 06/21/17 06/21/17 Range/Units 05:37 05:37 06:34 WBC 14.99 H (4.23-9.07) K/mm3 RBC 3.66 L (4.63-6.08) M/mm3 Hgb 11.4 L (13.7-17.5) gm/L Hct 35.5 L (40.1-51.0) % MCV 97.0 H (79.0-92.2) fl MCH 31.1 (25.7-32.2) pg MCHC 32.1 L (32.2-35.5) g/dl RDW Std Deviation 48.1 H (35.1-43.9) fL Plt Count 307 (163-337) K/mm3 MPV 10.2 (9.4-12.3) fl Neut % (Auto) 78.1 H (34.0-67.9) % Lymph % (Auto) 7.8 L (21.8-53.1) % Collin % (Auto) 13.9 H (5.3-12.2) % Eos % (Auto) 0.1 L (0.8-7.0) Baso % (Auto) 0.1 (0.1-1.2) % Neut # (Auto) 11.72 H (1.78-5.38) K/mm3 Lymph # (Auto) 1.17 L (1.32-3.57) K/mm3 Collin # (Auto) 2.08 H (0.30-0.82) K/mm3 Eos # (Auto) 0.01 L (0.04-0.54) K/mm3 Baso # (Auto) 0.01 (0.01-0.08) K/mm3 Manual Slide Review Abnormal smear Sodium 133 L (136-145) mEq/L Potassium 4.4 (3.5-5.1) mEq/L Chloride 94 L (98-107) mEq/L Carbon Dioxide 32 (21-32) mEq/L Anion Gap 11.4 (5-15) BUN 18 (7-18) mg/dL Creatinine 1.1 (0.7-1.3) mg/dL Est Cr Clr Drug Dosing 49.82 mL/min Estimated GFR (MDRD) > 60 (>60) mL/min BUN/Creatinine Ratio 16.4 (14-18) Glucose 177 H (83-115) mg/dL POC Glucose 191 H (83-110) mg/dL Calcium 8.8 (8.5-10.1) mg/dL Magnesium 1.4 L (1.8-2.4) mg/dl C-Reactive Protein 26.6 H* (<1.0) mg/dL Carlos Results Last 24 Hours: Microbiology 06/20/17 12:35 Influenza Types A & B (PCR) - Final Nasal, Right 06/20/17 12:26 Influenza Type A Antigen Screen - Final Nasal Aspirate, Right NEGATIVE INFLUENZA A VIRUS AG Influenza Type B Antigen Screen - Final NEGATIVE INFLUENZA B VIRUS AG Med Orders - Current: Current Medications Albuterol (Proventil Neb Soln) 2.5 mg NEB Q4HR PRN PRN Reason: Shortness of Breath Albuterol/Ipratropium (Duoneb 3.0-0.5 Mg/3 Ml) 3 ml INH Q6H [facility] Last Admin: 06/21/17 08:23 Dose: 3 ml Aspirin (Aspirin) 81 mg PO DAILY [facility] Last Admin: 06/21/17 08:50 Dose: 81 mg Enoxaparin Sodium (Lovenox) 40 mg SUBCUT DAILY [facility] Last Admin: 06/21/17 08:54 Dose: 40 mg Fentanyl (Duragesic) 25 mcg TRDERM Q72H [facility] Last Admin: 06/20/17 10:59 Dose: 25 mcg Glipizide (Glucotrol) 10 mg PO DAILY@0630 [facility] Last Admin: 06/21/17 06:50 Dose: 10 mg Guaifenesin (Mucinex) 1,200 mg PO Q12HR PRN PRN Reason: Congestion Hydralazine HCl (Apresoline) 10 mg IVPUSH Q4H PRN PRN Reason: sb/p >150 Levofloxacin/Dextrose 750 mg/ (Premix) 150 mls @ 100 mls/hr IV Q24H [facility] Last Admin: 06/20/17 17:03 Dose: 100 mls/hr Insulin Aspart (Novolog) 0 unit SUBCUT QIDACANDBED [facility] PRN Reason: Protocol Last Admin: 06/21/17 09:07 Dose: 1 unit Ketorolac Tromethamine (Toradol) 30 mg IVPUSH Q6H [facility] Stop: 06/22/17 03:31 Metoprolol Succinate (Toprol Xl) 50 mg PO DAILY [facility] Last Admin: 06/21/17 09:08 Dose: 50 mg Miscellaneous Information (Remove Patch) 1 ea TRDERM Q72H [facility] Last Admin: 06/20/17 10:54 Dose: 1 ea Morphine Sulfate (Morphine) 2 mg IVPUSH Q6H PRN PRN Reason: Pain Last Admin: 06/21/17 06:16 Dose: 2 mg Nicotine (Habitrol) 7 mg TRDERM DAILY [facility] Last Admin: 06/21/17 08:50 Dose: 7 mg Nitroglycerin (Nitrostat) 0.4 mg SL Q5M PRN PRN Reason: Chest Pain Ptom - Brimonidine 0 (.15% Ophth Soln) 1 each EYEBOTH BID [facility] Last Admin: 06/21/17 08:57 Dose: 1 each Ptom - Refresh (Optive Ophth Soln) 0 each EYEBOTH BID [facility] Last Admin: 06/21/17 08:59 Dose: 1 each Ptom - Roflumilast (500mg (Daliresp)) 1 each PO DAILY [facility] Last Admin: 06/21/17 09:26 Dose: 1 each Saxagliptin Hydrochloride (Onglyza) 5 mg PO DAILY [facility] Last Admin: 06/21/17 08:56 Dose: 5 mg Simvastatin (Zocor) 40 mg PO BEDTIME [facility] Last Admin: 06/20/17 21:39 Dose: 40 mg Sodium Chloride (Saline Flush) 10 ml FLUSH ASDIRECTED PRN PRN Reason: Keep Vein Open Last Admin: 06/19/17 12:39 Dose: 10 ml Tramadol HCl (Ultram) 50 mg PO Q6H PRN PRN Reason: Pain Last Admin: 06/21/17 08:47 Dose: 50 mg Discontinued Medications Albuterol/Ipratropium (Duoneb 3.0-0.5 Mg/3 Ml) ml INH Q6H [facility] Albuterol/Ipratropium (Duoneb 3.0-0.5 Mg/3 Ml) 3 ml INH Q6H [facility] Last Admin: 06/20/17 11:27 Dose: 3 ml Fentanyl (Duragesic) 12 mcg TRDERM Q72H [facility] Last Admin: 06/19/17 18:04 Dose: 12 mcg Furosemide (Lasix) 40 mg IVPUSH NOW ONE Stop: 06/19/17 11:31 Last Admin: 06/19/17 11:44 Dose: 40 mg Furosemide (Lasix) 40 mg IVPUSH NOW ONE Stop: 06/20/17 08:01 Last Admin: 06/20/17 08:22 Dose: 40 mg Glipizide (Glucotrol) 10 mg PO DAILY@0630 [facility] Hydromorphone HCl (Dilaudid) 0.25 mg IVPUSH ONETIME ONE Stop: 06/19/17 11:20 Last Admin: 06/19/17 15:40 Dose: Not Given Hydromorphone HCl (Dilaudid) 0.5 mg IVPUSH ONETIME ONE Stop: 06/19/17 11:21 Last Admin: 06/19/17 15:41 Dose: Not Given Levofloxacin/Dextrose 750 mg/ (Premix) 150 mls @ 100 mls/hr IV ONETIME ONE Stop: 06/19/17 16:06 Last Admin: 06/19/17 15:34 Dose: 100 mls/hr Magnesium Sulfate 2 gm/ Premix 50 mls @ 25 mls/hr IV ONETIME ONE Stop: 06/19/17 20:07 Last Admin: 06/19/17 21:29 Dose: 25 mls/hr Magnesium Sulfate 2 gm/ Premix 50 mls @ 25 mls/hr IV ONETIME ONE Stop: 06/20/17 11:34 Last Admin: 06/20/17 10:16 Dose: 25 mls/hr Insulin Detemir (Levemir) 10 unit SUBCUT BID [facility] Last Admin: 06/20/17 11:37 Dose: Not Given Levofloxacin (Levaquin) 750 mg PO Q24H [facility] Last Admin: 06/20/17 11:37 Dose: Not Given [facility] Last Admin: 06/21/17 06:49 Dose: 1,000 mg Metoprolol Succinate (Toprol Xl) 50 mg PO DAILY [facility] Mometasone Furoate/Formoterol Fumar (Dulera 200-5 Mcg) 2 puff IH BID [facility] Last Admin: 06/21/17 08:24 Dose: 2 puff Morphine Sulfate (Morphine) 1 mg IVPUSH Q8H PRN PRN Reason: Pain Last Admin: 06/19/17 18:04 Dose: 1 mg Morphine Sulfate (Morphine) 2 mg IVPUSH ONETIME ONE Stop: 06/20/17 10:31 Last Admin: 06/20/17 10:43 Dose: 2 mg Nicotine (Habitrol) 21 mg TRDERM DAILY [facility] Ondansetron HCl (Zofran) 4 mg IVPUSH ONETIME ONE Stop: 06/19/17 11:20 Last Admin: 06/19/17 12:39 Dose: Not Given Ptom - Glipizide (10mg Tablet) 1 each PO DAILY@0630 [facility] Last Admin: 06/20/17 11:38 Dose: Not Given Ptom - Metformin (500mg Tablet) 2 each PO BIDMEALS [facility] Last Admin: 06/20/17 11:38 Dose: Not Given Ptom: Metoprolol Succinate 50mg Tablet 1 each PO DAILY [facility] Last Admin: 06/20/17 11:38 Dose: Not Given Ptom: Simvastatin (40mg Tablet) 1 each PO BEDTIME [facility] Last Admin: 06/20/17 10:04 Dose: Not Given Ptom - Sitagliptin ( (Januvia) 100mg) 1 each PO DAILY [facility] Last Admin: 06/20/17 10:50 Dose: 1 each Tramadol HCl (Ultram) 50 mg PO ONETIME ONE Stop: 06/19/17 15:09 Last Admin: 06/19/17 15:12 Dose: 50 mg - Exam Quality Assessment: Supplemental Oxygen, DVT Prophylaxis General: Alert, Oriented, Cooperative HEENT: Pupils Equal, EOMI, Mucous Membr. Moist/[place] Neck: Supple Lungs: Normal Respiratory Effort, Decreased Breath Sounds (bases), Crackles ( fine left base) Cardiovascular: Irregular Rhythm, Murmurs (grade 2 systolic) GI/Abdominal Exam: Normal Bowel Sounds, Soft, Non-Tender (Male) Exam: Deferred Extremities: Normal Inspection, Leg Pain, Other (pain with palpation to medial joint line of right knee, no erythema noted). No: Pedal Edema, Slow Capillary Refill, Ole's Sign, Increased Warmth, Redness Peripheral Pulses: 1+: Posterior Tibial (L), Posterior Tibial (R), 2+: Dorsalis Pedis (L), Dorsalis Pedis (R) Neurological: No New Focal Deficit Psy/Mental Status: Alert, Normal Affect, Normal Mood - Problem List & Annotations (1) Right leg pain SNOMED Code(s): 606771505 Code(s): M79.604 - PAIN IN RIGHT LEG Status: Acute Priority: High Current Visit: Yes (2) Acute thoracic back pain SNOMED Code(s): 437540465 Code(s): M54.6 - PAIN IN THORACIC SPINE Status: Acute Priority: High Current Visit: Yes Qualifiers: Back pain laterality: right Qualified Code(s): M54.6 - Pain in thoracic spine (3) CHF (congestive heart failure) SNOMED Code(s): 91450578 Code(s): I50.9 - HEART FAILURE, UNSPECIFIED Status: Acute Priority: High Current Visit: Yes Qualifiers: Congestive heart failure type: diastolic Congestive heart failure chronicity: acute on chronic Qualified Code(s): I50.33 - Acute on chronic diastolic (congestive) heart failure (4) Hypoxemia SNOMED Code(s): 485848805 Code(s): R09.02 - HYPOXEMIA Status: Acute Priority: High Current Visit : Yes (5) Pneumonia SNOMED Code(s): 521087902 Code(s): J18.9 - PNEUMONIA, UNSPECIFIED ORGANISM Status: Acute Priority: High Current Visit: Yes Qualifiers: Pneumonia type: due to unspecified organism Laterality: left Lung location: lower lobe of lung Qualified Code(s): J18.1 - Lobar pneumonia, unspecified organism - Problem List Review Problem List Initiated/Reviewed/Updated: Yes - My Orders Last 24 Hours: My Active Orders 06/21/17 09:17 Hip Min 2V or 3V Rt [CR] Routine Knee 3V Rt [CR] Routine Venous Doppler Lwr Ext Bi [US] Routine 06/21/17 09:18 RHEUMATOID FACTOR SCREEN [CHEM] Routine SEDIMENTATION RATE AUTO [HEME] Routine URIC ACID [CHEM] Routine 06/21/17 09:26 hydrALAZINE [Apresoline] 10 mg IVPUSH Q4H PRN 06/21/17 09:30 Ketorolac [Toradol] 30 mg IVPUSH Q6H - Plan Plan:: Impression: CAP- organism unspecified at this time -Repeat CXR this morning with worsening of probable pneumonia despite clinically appears non-toxic -WBC and CRP both up today -Add Rocephin to Levaquin IV -Cont with Neb tx, RT, IS/FV -Mycoplasma and strep pneumonia negative; influenza screening and respiratory viral panel both negative -Recent CAP treated with zosyn, History of LLL lung abscess Back pain with degenerative changes thoracolumbar spine; no compression fractures are noted on CT of thoracic and lumbar spines--back pain improved today -poor pain control---is improved today -Sciatica -Pain management- Fentanyl patch increased to 25mcg yesterday along with PO tramadol and PRN Morphine Acute right leg pain--as of last night--? sciatica relating to acute on chronic LBP but back pain itself is improved today--exam of leg is unremarkable -Will obtain xrays of rt hip and knee -Labs: uric acid, esr, rheumatoid factor -Venous doppler to r/o DVT -Consider Orthopedic consult Electrolyte abnormalities: hypokalemia/hypomagnesemia -Replete and recheck- follow daily labs Query CHF, mild bilateral pulmonary congestion. -? vascular congestion on CXR -BNP today -IV lasix -Has hx of CHF -Consider echo if not done in last 6 months; will check records. Chronic DM type 2- A1C- Novolog SSI/Accuchecks AC/HS---avoid steroids if possible as last admission blood sugars skyrocketed with steroid use. -Hold metformin due to IV toradol use, avoid kidney injury, cover with SSI-- increase to medium dosing protocol History of CAD/CABG HLD--cholesterol levels WNL/acceptable- cont home meds HTN- stable- cont home meds HF Hx COPD BPH Hx AVR- on coumadin- INR 1.52 today Other: Home meds CHF education TSH WNL PT/OT consults SW consult for SNF for rehab stay---Plans for SNF at [facility], possible discharge Monday pending progress and ongoing evaluation as above. Daily labs DVT/GI prophylaxis Patient is Full Code status PCP is Dr. Coyle with [facility] in [place]
[2017-06-21] MEDS ORDERED: Magnesium Sulfate/Water 2 GM in Premix Bag 1 BAG IV ONE (10:00)
[2017-06-21] MEDS ORDERED: Furosemide 40 MG/4 ML VIAL IVPUSH ONE (10:10)
[2017-06-21] MEDS: Ketorolac 30 MG/ML SDV IVPUSH SCH ×3 (10:49→21:41)
--- NOTE | 2017-06-21 12:21 | CR ---
Chest: Two views of the chest were obtained. Comparison: Prior chest x-ray at 06/19/17. Heart size and mediastinum are within normal limits for portable technique. Increasing density is seen within both lungs from prior study. Findings most prominent within the right mid lung. Lung markings are also increased some of which appear chronic. Previous sternotomy is noted. Degenerative change is noted within the spine. Impression: 1. Increasing parenchymal densities within both sides of the chest worse on the right side. Differential includes asymmetric pulmonary vascular congestion as well as pneumonia. 2. Other portions of the chest are felt to be stable. Diagnostic code #3
--- NOTE | 2017-06-21 12:21 | CR ---
Right knee: AP, lateral and sunrise patellar views of the right knee were obtained. Comparison: No prior knee exam. Moderate to severe medial joint space narrowing is noted within the right knee. Joint effusion is present. Minimal osteophytes are noted off the patella. Bony structures are osteopenic. Vascular calcification is seen. Impression: 1. Moderate to severe medial joint space narrowing within the right knee with joint effusion. 2. Other incidental findings. Diagnostic code #3
--- NOTE | 2017-06-21 12:21 | US ---
Bilateral lower extremity deep venous ultrasound: Duplex and color flow imaging was obtained of the right and left common femoral, proximal greater saphenous, superficial femoral, popliteal, posterior tibial and peroneal veins. Peroneal veins not able to be seen to compress. Normal augmentation is seen within the peroneal veins. Other veins show normal phasic flow, augmentation and compression. Popliteal cyst is seen as well as joint effusion. Impression: 1. Popliteal cyst on the left side with joint effusion. 2. No evidence of deep venous thrombosis is seen within the right or left lower extremities. Diagnostic code #2
--- NOTE | 2017-06-21 12:21 | CR ---
Right hip: AP and lateral views of the right hip were obtained. Comparison: Prior right hip exam of 05/16/12. Lateral view is suboptimal due to technique. AP view shows slightly prominent superior acetabulum with mild associated joint space narrowing. Mild sclerosis is noted along the iliac side of the sacroiliac joint on the right side most likely degenerative in etiology. Mild degenerative change is seen within the lower lumbar spine. Bony structures are osteopenic. Nothing acute is seen on the AP projection. Impression: 1. Slight degenerative change as described above. Findings slightly progressed within the right hip from previous study. Diagnostic code #2
[2017-06-21] MEDS: cefTRIAXone 1 GM in Sodium Chloride 0.9% 100 ML IV SCH (13:12)
[2017-06-21] MEDS ORDERED: Sodium Chloride 0.9% 1,000 ML IV SCH (14:30)
[2017-06-21] MEDS: Levofloxacin/Dextrose 5%-Water 750 MG in Premix Bag 1 BAG IV SCH (18:06)
[2017-06-21] MEDS: Budesonide 0.25 MG/2 ML Neb Susp NEB SCH (21:24)
[2017-06-21] MEDS: Magnesium Oxide 400 MG Tab PO SCH (21:40)
[2017-06-21] MEDS: Simvastatin 40 MG Tab PO SCH (21:40)
[2017-06-21] MEDS: guaiFENesin 600 MG Tab.ER PO PRN (21:40)
[2017-06-21] MEDS: Famotidine 20 MG Tab PO SCH (21:40)
[2017-06-22] MEDS: Albuterol/Ipratropium 3.0-0.5 MG/3 ML Neb Soln INH SCH ×4 (03:05→21:23)
[2017-06-22] MEDS: Ketorolac 30 MG/ML SDV IVPUSH SCH (03:28)
[2017-06-22] MEDS ORDERED: Sodium Chloride 0.9% 1,000 ML IV SCH ×2 (08:00→14:45)
[2017-06-22] MEDS: Insulin Aspart 100 Units/ML 3 ML Pen SUBCUT SCH ×4 (08:17→22:53)
[2017-06-22] MEDS: Metoprolol Succinate 50 MG Tab.ER PO SCH (08:19)
[2017-06-22] MEDS: Aspirin 81 MG Tab.Chew PO SCH (08:20)
[2017-06-22] MEDS: Saxagliptin 5 MG Tab PO SCH (08:20)
[2017-06-22] MEDS: Famotidine 20 MG Tab PO SCH ×2 (08:20→21:09)
[2017-06-22] MEDS: Nicotine 7 MG/24 Hr Patch TRDERM SCH (08:21)
[2017-06-22] MEDS: Enoxaparin 40 MG/0.4 ML Syringe SUBCUT SCH (08:21)
[2017-06-22] MEDS: Magnesium Oxide 400 MG Tab PO SCH ×2 (08:21→21:10)
[2017-06-22] MEDS: REFRESH OPTIVE EYEBOTH SCH ×2 (08:22→21:13)
[2017-06-22] MEDS: BRIMONIDINE 0.15% EYEBOTH SCH ×2 (08:22→21:13)
[2017-06-22] MEDS: ROFLUMILAST 500 MG PO SCH (08:33)
[2017-06-22] MEDS: Budesonide 0.25 MG/2 ML Neb Susp NEB SCH ×2 (09:29→21:24)
[2017-06-22] MEDS: traMADol 50 MG Tab PO PRN ×2 (09:55→23:08)
--- NOTE | 2017-06-22 11:55 | MR ---
MRI lumbar spine Technique: T1 and T2-weighted axial images were obtained from above the L1-L2 disc inferiorly through the L5-S1 disc. T1, T2 and fat-suppressed inversion recovery sagittal images were obtained. Comparison: Previous CT lumbar spine exam of 06/19/17. Previous MRI lumbar spine study of 12/05/12 is also available. Findings: T11-12: Mild disc space narrowing is seen. Posterior disc is preserved. No central canal stenosis or neural foraminal stenosis is seen. T12-L1: Minimal Schmorl's node deformities are seen. Posterior disc is maintained. No central canal stenosis or neural foraminal stenosis is seen. L1-L2: Degenerative endplate signal change is seen. Schmorl's node deformities are seen. Slight circumferential disc bulge is seen with posterior disc maintaining a concave margin. No central canal stenosis is seen. Mild disc bulging into the inferior neural foramina are seen. Nerve roots appear to exit without compromise. L3-L4: Mild disc space narrowing is seen. Circumferential disc bulge is noted. Posterior disc maintains a planar margin. Moderately severe degenerative apophyseal change is noted. No central canal stenosis is seen. Neural foramina are felt to be patent where the nerve roots exit. L4-L5: Moderate disc space narrowing is seen. Slight circumferential disc bulge is present. No central canal stenosis is seen. Disc bulging is seen into both inferior neural foramina causing moderately severe neural foraminal stenosis. Mild degenerative apophyseal change is seen. L5-S1: Posterior disc is preserved. No central canal stenosis is seen. Mild degenerative apophyseal change is seen. Neural foramina are patent where the nerve roots exit. Conus medullaris and cauda equina show no abnormal signal or mass. Impression: 1. Diffuse degenerative change as noted above. Degenerative change has minimally increased from previous lumbar spine MRI. Diagnostic code #3
[2017-06-22] MEDS: cefTRIAXone 1 GM in Sodium Chloride 0.9% 100 ML IV SCH (12:00)
--- NOTE | 2017-06-22 14:28 | PCM.PN ---
- General Info Date of Service: 06/22/17 Functional Status: Reports: Tolerating Diet - Review of Systems General: Reports: No Symptoms HEENT: Reports: No Symptoms Pulmonary: Reports: No Symptoms Cardiovascular: Reports: No Symptoms Gastrointestinal: Reports: No Symptoms Genitourinary: Reports: No Symptoms Musculoskeletal: Reports: Leg Pain Skin: Reports: No Symptoms Neurological: Reports: No Symptoms Psychiatric: Reports: Depression - Patient Data Vitals - Most Recent: Last Vital Signs Temp 36.2 C 06/22/17 07:55 Pulse 81 06/22/17 08:19 Resp 18 06/22/17 07:55 BP 103/49 L 06/22/17 08:19 Pulse Ox 94 L 06/22/17 09:29 Weight - Most Recent: 74.389 kg I&O - Last 24 Hours: Intake & Output 06/21/17 06/22/17 06/22/17 22:59 06:59 14:59 Intake Total 1795 1200 360 Output Total 350 500 Balance 1445 700 360 Lab Results Last 24 Hours: Laboratory Results - last 24 hr 06/21/17 06/21/17 06/21/17 Range/Units 16:22 16:52 21:03 WBC (4.23-9.07) K/mm3 RBC (4.63-6.08) M/mm3 Hgb (13.7-17.5) gm/L Hct (40.1-51.0) % MCV (79.0-92.2) fl MCH (25.7-32.2) pg MCHC (32.2-35.5) g/dl RDW Std Deviation (35.1-43.9) fL Plt Count (163-337) K/mm3 MPV (9.4-12.3) fl Neut % (Auto) (34.0-67.9) % Lymph % (Auto) (21.8-53.1) % Wilkin % (Auto) (5.3-12.2) % Eos % (Auto) (0.8-7.0) Baso % (Auto) (0.1-1.2) % Neut # (Auto) (1.78-5.38) K/mm3 Lymph # (Auto) (1.32-3.57) K/mm3 Wilkin # (Auto) (0.30-0.82) K/mm3 Eos # (Auto) (0.04-0.54) K/mm3 Baso # (Auto) (0.01-0.08) K/mm3 Manual Slide Review Sodium (136-145) mEq/L Potassium (3.5-5.1) mEq/L Chloride (98-107) mEq/L Carbon Dioxide (21-32) mEq/L Anion Gap (5-15) BUN (7-18) mg/dL Creatinine (0.7-1.3) mg/dL Est Cr Clr Drug Dosing mL/min Estimated GFR (MDRD) (>60) mL/min BUN/Creatinine Ratio (14-18) Glucose (83-115) mg/dL POC Glucose 233 H 306 H (83-110) mg/dL Calcium (8.5-10.1) mg/dL Magnesium (1.8-2.4) mg/dl C-Reactive Protein (<1.0) mg/dL NT-Pro-B Natriuret Pep 1067 H (0-450) pg/mL 06/22/17 06/22/17 06/22/17 Range/Units 05:25 05:25 06:27 WBC 15.21 H (4.23-9.07) K/mm3 RBC 3.43 L (4.63-6.08) M/mm3 Hgb 10.3 L (13.7-17.5) gm/L Hct 32.9 L (40.1-51.0) % MCV 95.9 H (79.0-92.2) fl MCH 30.0 (25.7-32.2) pg MCHC 31.3 L (32.2-35.5) g/dl RDW Std Deviation 45.8 H (35.1-43.9) fL Plt Count 227 (163-337) K/mm3 MPV 10.0 (9.4-12.3) fl Neut % (Auto) 78.8 H (34.0-67.9) % Lymph % (Auto) 4.7 L (21.8-53.1) % Wilkin % (Auto) 15.3 H (5.3-12.2) % Eos % (Auto) 0.4 L (0.8-7.0) Baso % (Auto) 0.1 (0.1-1.2) % Neut # (Auto) 11.99 H (1.78-5.38) K/mm3 Lymph # (Auto) 0.71 L (1.32-3.57) K/mm3 Wilkin # (Auto) 2.33 H (0.30-0.82) K/mm3 Eos # (Auto) 0.06 (0.04-0.54) K/mm3 Baso # (Auto) 0.01 (0.01-0.08) K/mm3 Manual Slide Review Abnormal smear Sodium 129 L (136-145) mEq/L Potassium 4.6 (3.5-5.1) mEq/L Chloride 92 L (98-107) mEq/L Carbon Dioxide 32 (21-32) mEq/L Anion Gap 9.6 (5-15) BUN 20 H (7-18) mg/dL Creatinine 1.1 (0.7-1.3) mg/dL Est Cr Clr Drug Dosing 50.72 mL/min Estimated GFR (MDRD) > 60 (>60) mL/min BUN/Creatinine Ratio 18.2 H (14-18) Glucose 130 H (83-115) mg/dL POC Glucose 166 H (83-110) mg/dL Calcium 8.7 (8.5-10.1) mg/dL Magnesium 1.9 (1.8-2.4) mg/dl C-Reactive Protein 31.6 H* (<1.0) mg/dL NT-Pro-B Natriuret Pep (0-450) pg/mL 06/22/17 06/22/17 Range/Units 06:54 11:39 WBC (4.23-9.07) K/mm3 RBC (4.63-6.08) M/mm3 Hgb (13.7-17.5) gm/L Hct (40.1-51.0) % MCV (79.0-92.2) fl MCH (25.7-32.2) pg MCHC (32.2-35.5) g/dl RDW Std Deviation (35.1-43.9) fL Plt Count (163-337) K/mm3 MPV (9.4-12.3) fl Neut % (Auto) (34.0-67.9) % Lymph % (Auto) (21.8-53.1) % Wilkin % (Auto) (5.3-12.2) % Eos % (Auto) (0.8-7.0) Baso % (Auto) (0.1-1.2) % Neut # (Auto) (1.78-5.38) K/mm3 Lymph # (Auto) (1.32-3.57) K/mm3 Wilkin # (Auto) (0.30-0.82) K/mm3 Eos # (Auto) (0.04-0.54) K/mm3 Baso # (Auto) (0.01-0.08) K/mm3 Manual Slide Review Sodium (136-145) mEq/L Potassium (3.5-5.1) mEq/L Chloride (98-107) mEq/L Carbon Dioxide (21-32) mEq/L Anion Gap (5-15) BUN (7-18) mg/dL Creatinine (0.7-1.3) mg/dL Est Cr Clr Drug Dosing mL/min Estimated GFR (MDRD) (>60) mL/min BUN/Creatinine Ratio (14-18) Glucose (83-115) mg/dL POC Glucose 166 H 246 H (83-110) mg/dL Calcium (8.5-10.1) mg/dL Magnesium (1.8-2.4) mg/dl C-Reactive Protein (<1.0) mg/dL NT-Pro-B Natriuret Pep (0-450) pg/mL Med Orders - Current: Current Medications Albuterol (Proventil Neb Soln) 2.5 mg NEB Q4HR PRN PRN Reason: Shortness of Breath Albuterol/Ipratropium (Duoneb 3.0-0.5 Mg/3 Ml) 3 ml INH Q6H [facility] Last Admin: 06/22/17 09:28 Dose: 3 ml Aspirin (Aspirin) 81 mg PO DAILY [facility] Last Admin: 06/22/17 08:20 Dose: 81 mg Budesonide (Pulmicort) 0.25 mg NEB BID [facility] Enoxaparin Sodium (Lovenox) 40 mg SUBCUT DAILY [facility] Last Admin: 06/22/17 08:21 Dose: 40 mg Famotidine (Pepcid) 20 mg PO BID [facility] Last Admin: 06/22/17 08:20 Dose: 20 mg Fentanyl (Duragesic) 25 mcg TRDERM Q72H [facility] Last Admin: 06/20/17 10:59 Dose: 25 mcg Glipizide (Glucotrol) 10 mg PO DAILY@0630 [facility] Last Admin: 06/22/17 06:13 Dose: 10 mg Guaifenesin (Mucinex) 1,200 mg PO Q12HR PRN PRN Reason: Congestion Last Admin: 06/21/17 21:40 Dose: 1,200 mg Hydralazine HCl (Apresoline) 10 mg IVPUSH Q4H PRN PRN Reason: sb/p >150 Levofloxacin/Dextrose 750 mg/ (Premix) 150 mls @ 100 mls/hr IV Q24H [facility] Last Admin: 06/21/17 18:06 Dose: 100 mls/hr Ceftriaxone Sodium 1 gm/ (Sodium Chloride) 100 mls @ 200 mls/hr IV Q24H [facility] Last Admin: 06/22/17 12:00 Dose: 200 mls/hr Sodium Chloride (Normal Saline) 1,000 mls @ 75 mls/hr IV ASDIRECTED [facility] Insulin Aspart (Novolog) 0 unit SUBCUT QIDACANDBED [facility] PRN Reason: Protocol Last Admin: 06/22/17 11:54 Dose: 4 units Magnesium Oxide (Magnesium Oxide) 400 mg PO BID [facility] Last Admin: 06/22/17 08:21 Dose: 400 mg Metoprolol Succinate (Toprol Xl) 50 mg PO DAILY [facility] Last Admin: 06/22/17 08:19 Dose: 50 mg Miscellaneous Information (Remove Patch) 1 ea TRDERM Q72H [facility] Last Admin: 06/20/17 10:54 Dose: 1 ea Morphine Sulfate (Morphine) 2 mg IVPUSH Q6H PRN PRN Reason: Pain Last Admin: 06/21/17 06:16 Dose: 2 mg Nicotine (Habitrol) 7 mg TRDERM DAILY [facility] Last Admin: 06/22/17 08:21 Dose: 7 mg Nitroglycerin (Nitrostat) 0.4 mg SL Q5M PRN PRN Reason: Chest Pain Ptom - Brimonidine 0 (.15% Ophth Soln) 1 each EYEBOTH BID [facility] Last Admin: 06/22/17 08:22 Dose: 1 each Ptom - Refresh (Optive Ophth Soln) 0 each EYEBOTH BID [facility] Last Admin: 06/22/17 08:22 Dose: 1 each Ptom - Roflumilast (500mg (Daliresp)) 1 each PO DAILY [facility] Last Admin: 06/22/17 08:33 Dose: 1 each Saxagliptin Hydrochloride (Onglyza) 5 mg PO DAILY [facility] Last Admin: 06/22/17 08:20 Dose: 5 mg Simvastatin (Zocor) 40 mg PO BEDTIME [facility] Last Admin: 06/21/17 21:40 Dose: 40 mg Sodium Chloride (Saline Flush) 10 ml FLUSH ASDIRECTED PRN PRN Reason: Keep Vein Open Last Admin: 06/19/17 12:39 Dose: 10 ml Tramadol HCl (Ultram) 50 mg PO Q6H PRN PRN Reason: Pain Last Admin: 06/22/17 09:55 Dose: 50 mg Discontinued Medications Albuterol/Ipratropium (Duoneb 3.0-0.5 Mg/3 Ml) ml INH Q6H [facility] Albuterol/Ipratropium (Duoneb 3.0-0.5 Mg/3 Ml) 3 ml INH Q6H [facility] Last Admin: 06/20/17 11:27 Dose: 3 ml Budesonide (Pulmicort) 0.25 mg NEB BIDRT [facility] Last Admin: 06/22/17 09:29 Dose: 0.25 mg Fentanyl (Duragesic) 12 mcg TRDERM Q72H [facility] Last Admin: 06/19/17 18:04 Dose: 12 mcg Furosemide (Lasix) 40 mg IVPUSH NOW ONE Stop: 06/19/17 11:31 Last Admin: 06/19/17 11:44 Dose: 40 mg Furosemide (Lasix) 40 mg IVPUSH NOW ONE Stop: 06/20/17 08:01 Last Admin: 06/20/17 08:22 Dose: 40 mg Furosemide (Lasix) 40 mg IVPUSH NOW ONE Stop: 06/21/17 10:11 Last Admin: 06/21/17 10:50 Dose: 40 mg Glipizide (Glucotrol) 10 mg PO DAILY@0630 [facility] Hydromorphone HCl (Dilaudid) 0.25 mg IVPUSH ONETIME ONE Stop: 06/19/17 11:20 Last Admin: 06/19/17 15:40 Dose: Not Given Hydromorphone HCl (Dilaudid) 0.5 mg IVPUSH ONETIME ONE Stop: 06/19/17 11:21 Last Admin: 06/19/17 15:41 Dose: Not Given Levofloxacin/Dextrose 750 mg/ (Premix) 150 mls @ 100 mls/hr IV ONETIME ONE Stop: 06/19/17 16:06 Last Admin: 06/19/17 15:34 Dose: 100 mls/hr Magnesium Sulfate 2 gm/ Premix 50 mls @ 25 mls/hr IV ONETIME ONE Stop: 06/19/17 20:07 Last Admin: 06/19/17 21:29 Dose: 25 mls/hr Magnesium Sulfate 2 gm/ Premix 50 mls @ 25 mls/hr IV ONETIME ONE Stop: 06/20/17 11:34 Last Admin: 06/20/17 10:16 Dose: 25 mls/hr Magnesium Sulfate 2 gm/ Premix 50 mls @ 25 mls/hr IV ONETIME ONE Stop: 06/21/17 11:59 Last Admin: 06/21/17 10:48 Dose: 25 mls/hr Sodium Chloride (Normal Saline) 1,000 mls @ 100 mls/hr IV ASDIRECTED [facility] Stop: 06/23/17 00:29 Last Admin: 06/21/17 14:53 Dose: 100 mls/hr Insulin Aspart (Novolog) 0 unit SUBCUT QIDACANDBED [facility] PRN Reason: Protocol Last Admin: 06/21/17 09:07 Dose: 1 unit Insulin Detemir (Levemir) 10 unit SUBCUT BID [facility] Last Admin: 06/20/17 11:37 Dose: Not Given Ketorolac Tromethamine (Toradol) 30 mg IVPUSH Q6H [facility] Stop: 06/22/17 03:31 Last Admin: 06/22/17 03:28 Dose: 30 mg Levofloxacin (Levaquin) 750 mg PO Q24H [facility] Last Admin: 06/20/17 11:37 Dose: Not Given Metformin HCl (Glucophage) 1,000 mg PO BIDMEALS [facility] Last Admin: 06/21/17 06:49 Dose: 1,000 mg Metoprolol Succinate (Toprol Xl) 50 mg PO DAILY [facility] Mometasone Furoate/Formoterol Fumar (Dulera 200-5 Mcg) 2 puff IH BID [facility] Last Admin: 06/21/17 08:24 Dose: 2 puff Morphine Sulfate (Morphine) 1 mg IVPUSH Q8H PRN PRN Reason: Pain Last Admin: 06/19/17 18:04 Dose: 1 mg Morphine Sulfate (Morphine) 2 mg IVPUSH ONETIME ONE Stop: 06/20/17 10:31 Last Admin: 06/20/17 10:43 Dose: 2 mg Nicotine (Habitrol) 21 mg TRDERM DAILY [facility] Ondansetron HCl (Zofran) 4 mg IVPUSH ONETIME ONE Stop: 06/19/17 11:20 Last Admin: 06/19/17 12:39 Dose: Not Given Ptom - Glipizide (10mg Tablet) 1 each PO DAILY@0630 [facility] Last Admin: 06/20/17 11:38 Dose: Not Given Ptom - Metformin (500mg Tablet) 2 each PO BIDMEALS [facility] Last Admin: 06/20/17 11:38 Dose: Not Given Ptom: Metoprolol Succinate 50mg Tablet 1 each PO DAILY [facility] Last Admin: 06/20/17 11:38 Dose: Not Given Ptom: Simvastatin (40mg Tablet) 1 each PO BEDTIME [facility] Last Admin: 06/20/17 10:04 Dose: Not Given Ptom - Sitagliptin ( (Januvia) 100mg) 1 each PO DAILY [facility] Last Admin: 06/20/17 10:50 Dose: 1 each Tramadol HCl (Ultram) 50 mg PO ONETIME ONE Stop: 06/19/17 15:09 Last Admin: 06/19/17 15:12 Dose: 50 mg - Exam Quality Assessment: Supplemental Oxygen, DVT Prophylaxis General: Alert, Oriented, Cooperative, No Acute Distress HEENT: Pupils Equal, Pupils Reactive, EOMI Neck: Supple, Trachea Midline, No JVD Lungs: Normal Respiratory Effort, Decreased Breath Sounds, Wheezing Cardiovascular: Regular Rate GI/Abdominal Exam: Normal Bowel Sounds, Soft, Non-Tender, No Organomegaly, No Distention (Male) Exam: Deferred Back Exam: Normal Inspection Extremities: Normal Inspection Skin: Warm Neurological: No New Focal Deficit, Normal Speech Psy/Mental Status: Alert, Depressed - Problem List & Annotations (1) Back pain of thoracolumbar region SNOMED Code(s): 496221009 Code(s): M54.5 - LOW BACK PAIN Status: Acute Current Visit: Yes (2) COLD, Chronic obstructive lung disease SNOMED Code(s): 87411493 Code(s): J44.9 - CHRONIC OBSTRUCTIVE PULMONARY DISEASE, UNSPECIFIED Status : Acute Priority: High Current Visit: No (3) Dehydration SNOMED Code(s): 64452482 Code(s): E86.0 - DEHYDRATION Status: Acute Current Visit: No (4) Pneumonia SNOMED Code(s): 797904870 Code(s): J18.9 - PNEUMONIA, UNSPECIFIED ORGANISM Status: Acute Priority: High Current Visit: Yes Qualifiers: Pneumonia type: due to unspecified organism Laterality: left Lung location: lower lobe of lung Qualified Code(s): J18.1 - Lobar pneumonia, unspecified organism - Problem List Review Problem List Initiated/Reviewed/Updated: Yes - My Orders Last 24 Hours: My Active Orders 06/21/17 20:15 Notify Provider Consults [RC] ASDIRECTED 06/21/17 20:32 RT Aerosol Therapy [RC] ASDIRECTED 06/21/17 20:33 Consult to Spiritual Care [CONS] Routine 06/21/17 20:38 Communication Order [RC] PER UNIT ROUTINE 06/22/17 08:00 Sodium Chloride 0.9% [Normal Saline] 1,000 ml IV ASDIRECTED 06/22/17 09:00 Consult to Physician [CONS] Routine 06/22/17 21:00 Budesonide [Pulmicort] 0.25 mg NEB BID - Plan Plan:: Impression: CAP- organism unspecified at this time -Repeat CXR this morning with worsening of probable pneumonia despite clinically appears non-toxic -WBC and CRP both up today -Add Rocephin to Levaquin IV -Cont with Neb tx, RT, IS/FV -Mycoplasma and strep pneumonia negative; influenza screening and respiratory viral panel both negative -Recent CAP treated with zosyn, History of LLL lung abscess Back pain with degenerative changes thoracolumbar spine; no compression fractures are noted on CT of thoracic and lumbar spines--back pain improved today -poor pain control---is improved today -Sciatica -Pain management- Fentanyl patch increased to 25mcg yesterday along with PO tramadol and PRN Morphine Acute right leg pain--as of last night--? sciatica relating to acute on chronic LBP but back pain itself is improved today--exam of leg is unremarkable -Will obtain xrays of rt hip and knee--->popliteal cyst -Labs: uric acid, esr, rheumatoid factor -Venous doppler to r/o DVT -Consider Orthopedic consult Electrolyte abnormalities: hypokalemia/hypomagnesemia -Replete and recheck- follow daily labs Query CHF, mild bilateral pulmonary congestion. -? vascular congestion on CXR -BNP today -IV lasix -Has hx of CHF -Consider echo if not done in last 6 months; will check records. Depression -Psych consult, TBA Chronic DM type 2- A1C- Novolog SSI/Accuchecks AC/HS---avoid steroids if possible as last admission blood sugars skyrocketed with steroid use. -Hold metformin due to IV toradol use, avoid kidney injury, cover with SSI-- increase to medium dosing protocol History of CAD/CABG HLD--cholesterol levels WNL/acceptable- cont home meds HTN- stable- cont home meds HF Hx COPD BPH Hx AVR- on coumadin- INR 1.52 today Other: Home meds CHF education TSH WNL PT/OT consults SW consult for SNF for rehab stay---Plans for SNF at [facility], possible discharge Monday pending progress and ongoing evaluation as above. Daily labs DVT/GI prophylaxis Patient is Full Code status PCP is Dr. Coyle with [facility] in [place]
[2017-06-22] MEDS ORDERED: Magnesium Hydroxide 400 MG/5 ML Susp 30 ML Cup PO ONE (17:30)
[2017-06-22] MEDS: Levofloxacin/Dextrose 5%-Water 750 MG in Premix Bag 1 BAG IV SCH (17:55)
[2017-06-22] MEDS ORDERED: Budesonide 0.25 MG/2 ML Neb Susp NEB SCH (21:00)
[2017-06-22] MEDS: Potassium Chloride/Sodium Chloride Tab PO SCH ×2 (21:09→23:08)
[2017-06-22] MEDS: Simvastatin 40 MG Tab PO SCH (21:10)
[2017-06-22] MEDS: guaiFENesin 600 MG Tab.ER PO PRN (23:08)
[2017-06-22] MEDS: Temazepam 15 MG Cap PO PRN (23:09)
[2017-06-23] MEDS: Albuterol/Ipratropium 3.0-0.5 MG/3 ML Neb Soln INH SCH ×4 (02:19→21:32)
[2017-06-23] MEDS: Budesonide 0.25 MG/2 ML Neb Susp NEB SCH (08:20)
[2017-06-23] MEDS: Insulin Aspart 100 Units/ML 3 ML Pen SUBCUT SCH ×4 (08:51→21:20)
[2017-06-23] MEDS: Nicotine 7 MG/24 Hr Patch TRDERM SCH (08:51)
[2017-06-23] MEDS: Enoxaparin 40 MG/0.4 ML Syringe SUBCUT SCH (08:51)
[2017-06-23] MEDS: Metoprolol Succinate 50 MG Tab.ER PO SCH (08:52)
[2017-06-23] MEDS: Famotidine 20 MG Tab PO SCH ×2 (08:52→21:20)
[2017-06-23] MEDS: BRIMONIDINE 0.15% EYEBOTH SCH ×2 (08:52→21:19)
[2017-06-23] MEDS: Aspirin 81 MG Tab.Chew PO SCH (08:52)
[2017-06-23] MEDS: Saxagliptin 5 MG Tab PO SCH (08:52)
[2017-06-23] MEDS: Magnesium Oxide 400 MG Tab PO SCH ×2 (08:52→21:20)
[2017-06-23] MEDS: REFRESH OPTIVE EYEBOTH SCH ×2 (08:53→21:19)
[2017-06-23] MEDS: ROFLUMILAST 500 MG PO SCH (08:53)
[2017-06-23] MEDS: cefTRIAXone 1 GM in Sodium Chloride 0.9% 100 ML IV SCH (12:12)
[2017-06-23] MEDS: Remove Patch*FENTANYL TRDERM SCH (12:17)
--- NOTE | 2017-06-23 15:03 | PCM.PN ---
<Seferino Resendiz - Last Filed: 06/23/17 19:48> - General Info Date of Service: 06/23/17 Admission Dx/Problem (Free Text): Admission Diagnosis/Problem Admission Diagnosis/Problem Pneumonia Subjective Update: In to see Griffin this evening. He is resting in bed. He reports that his pain has improved. Family reports his mental status has improved since negatively reacting to the fentanyl patch. He is A&Ox3 now. He communicates freely with me. Overall he is improving. Functional Status: Reports: Pain Controlled, Tolerating Diet, Ambulating, Urinating. Denies: New Symptoms - Review of Systems General: Reports: Weakness, Fatigue. Denies: Fever, Chills HEENT: Reports: No Symptoms. Denies: Headaches, Sore Throat Pulmonary: Reports: Cough, Sputum, Wheezing. Denies: Shortness of Breath Cardiovascular: Reports: No Symptoms. Denies: Chest Pain, Palpitations, Dyspnea on Exertion, Edema Gastrointestinal: Reports: No Symptoms. Denies: Abdominal Pain, Constipation, Diarrhea, Nausea, Vomiting Genitourinary: Reports: No Symptoms. Denies: Dysuria, Frequency, Burning, Pain , Urgency Musculoskeletal: Reports: Back Pain (improved ), Leg Pain (improved ) Skin: Reports: No Symptoms Neurological: Reports: No Symptoms. Denies: Confusion, Dizziness, Headache, Trouble Speaking Psychiatric: Reports: No Symptoms. Denies: Confusion - Patient Data Vitals - Most Recent: Last Vital Signs Temp 97.2 F 06/23/17 14:22 Pulse 83 06/23/17 14:22 Resp 28 H 06/23/17 14:22 BP 89/48 L 06/23/17 14:22 Pulse Ox 94 L 06/23/17 14:22 Weight - Most Recent: 74.888 kg I&O - Last 24 Hours: Intake & Output 06/23/17 06/23/17 06/23/17 06:59 14:59 22:59 Intake Total 1287 240 Output Total 1150 Balance 137 240 Lab Results Last 24 Hours: Laboratory Results - last 24 hr 06/22/17 06/22/17 06/23/17 Range/Units 17:36 22:39 05:33 WBC 10.63 H (4.23-9.07) K/mm3 RBC 3.29 L (4.63-6.08) M/mm3 Hgb 10.1 L (13.7-17.5) gm/L Hct 31.7 L (40.1-51.0) % MCV 96.4 H (79.0-92.2) fl MCH 30.7 (25.7-32.2) pg MCHC 31.9 L (32.2-35.5) g/dl RDW Std Deviation 47.4 H (35.1-43.9) fL Plt Count 248 (163-337) K/mm3 MPV 10.0 (9.4-12.3) fl Neut % (Auto) 76.6 H (34.0-67.9) % Lymph % (Auto) 6.4 L (21.8-53.1) % Dickinson % (Auto) 16.0 H (5.3-12.2) % Eos % (Auto) 0.2 L (0.8-7.0) Baso % (Auto) 0.1 (0.1-1.2) % Neut # (Auto) 8.15 H (1.78-5.38) K/mm3 Lymph # (Auto) 0.68 L (1.32-3.57) K/mm3 Dickinson # (Auto) 1.70 H (0.30-0.82) K/mm3 Eos # (Auto) 0.02 L (0.04-0.54) K/mm3 Baso # (Auto) 0.01 (0.01-0.08) K/mm3 Manual Slide Review Abnormal smear Sodium (136-145) mEq/L Potassium (3.5-5.1) mEq/L Chloride (98-107) mEq/L Carbon Dioxide (21-32) mEq/L Anion Gap (5-15) BUN (7-18) mg/dL Creatinine (0.7-1.3) mg/dL Est Cr Clr Drug Dosing mL/min Estimated GFR (MDRD) (>60) mL/min BUN/Creatinine Ratio (14-18) Glucose (83-115) mg/dL POC Glucose 206 H 304 H (83-110) mg/dL Calcium (8.5-10.1) mg/dL Magnesium (1.8-2.4) mg/dl C-Reactive Protein (<1.0) mg/dL 06/23/17 06/23/17 06/23/17 Range/Units 05:33 08:42 12:03 WBC (4.23-9.07) K/mm3 RBC (4.63-6.08) M/mm3 Hgb (13.7-17.5) gm/L Hct (40.1-51.0) % MCV (79.0-92.2) fl MCH (25.7-32.2) pg MCHC (32.2-35.5) g/dl RDW Std Deviation (35.1-43.9) fL Plt Count (163-337) K/mm3 MPV (9.4-12.3) fl Neut % (Auto) (34.0-67.9) % Lymph % (Auto) (21.8-53.1) % Dickinson % (Auto) (5.3-12.2) % Eos % (Auto) (0.8-7.0) Baso % (Auto) (0.1-1.2) % Neut # (Auto) (1.78-5.38) K/mm3 Lymph # (Auto) (1.32-3.57) K/mm3 Dickinson # (Auto) (0.30-0.82) K/mm3 Eos # (Auto) (0.04-0.54) K/mm3 Baso # (Auto) (0.01-0.08) K/mm3 Manual Slide Review Sodium 135 L (136-145) mEq/L Potassium 5.0 (3.5-5.1) mEq/L Chloride 98 (98-107) mEq/L Carbon Dioxide 32 (21-32) mEq/L Anion Gap 10.0 (5-15) BUN 20 H (7-18) mg/dL Creatinine 1.0 (0.7-1.3) mg/dL Est Cr Clr Drug Dosing 56.17 mL/min Estimated GFR (MDRD) > 60 (>60) mL/min BUN/Creatinine Ratio 20.0 H (14-18) Glucose 216 H (83-115) mg/dL POC Glucose 203 H 277 H (83-110) mg/dL Calcium 8.7 (8.5-10.1) mg/dL Magnesium 2.0 (1.8-2.4) mg/dl C-Reactive Protein 28.6 H* (<1.0) mg/dL Carlos Results Last 24 Hours: Microbiology 06/21/17 14:05 Streptococcus pneumoniae Antigen (M - Final Urine Med Orders - Current: Current Medications Albuterol (Proventil Neb Soln) 2.5 mg NEB Q4HR PRN PRN Reason: Shortness of Breath Albuterol/Ipratropium (Duoneb 3.0-0.5 Mg/3 Ml) 3 ml INH Q6H [facility] Last Admin: 06/23/17 08:13 Dose: 3 ml Aspirin (Aspirin) 81 mg PO DAILY [facility] Last Admin: 06/23/17 08:52 Dose: 81 mg Budesonide (Pulmicort) 0.5 mg NEB BID [facility] Enoxaparin Sodium (Lovenox) 40 mg SUBCUT DAILY [facility] Last Admin: 06/23/17 08:51 Dose: 40 mg Famotidine (Pepcid) 20 mg PO BID [facility] Last Admin: 06/23/17 08:52 Dose: 20 mg Glipizide (Glucotrol) 10 mg PO DAILY@0630 [facility] Last Admin: 06/23/17 08:52 Dose: 10 mg Guaifenesin (Mucinex) 1,200 mg PO Q12HR PRN PRN Reason: Congestion Last Admin: 06/22/17 23:08 Dose: 1,200 mg Hydralazine HCl (Apresoline) 10 mg IVPUSH Q4H PRN PRN Reason: sb/p >150 Levofloxacin/Dextrose 750 mg/ (Premix) 150 mls @ 100 mls/hr IV Q24H [facility] Last Admin: 06/22/17 17:55 Dose: 100 mls/hr Ceftriaxone Sodium 1 gm/ (Sodium Chloride) 100 mls @ 200 mls/hr IV Q24H [facility] Last Admin: 06/23/17 12:12 Dose: 200 mls/hr Sodium Chloride (Normal Saline) 1,000 mls @ 50 mls/hr IV ASDIRECTED [facility] Last Admin: 06/22/17 15:26 Dose: 50 mls/hr Insulin Aspart (Novolog) 0 unit SUBCUT QIDACANDBED [facility] PRN Reason: Protocol Last Admin: 06/23/17 12:17 Dose: 6 units Magnesium Oxide (Magnesium Oxide) 400 mg PO BID [facility] Last Admin: 06/23/17 08:52 Dose: 400 mg Metoprolol Succinate (Toprol Xl) 50 mg PO DAILY [facility] Last Admin: 06/23/17 08:52 Dose: 50 mg Miscellaneous Information (Remove Patch) 1 ea TRDERM Q72H [facility] Last Admin: 06/23/17 12:17 Dose: 1 ea Morphine Sulfate (Morphine) 2 mg IVPUSH Q6H PRN PRN Reason: Pain Last Admin: 06/21/17 06:16 Dose: 2 mg Nicotine (Habitrol) 7 mg TRDERM DAILY [facility] Last Admin: 06/23/17 08:51 Dose: Not Given Nitroglycerin (Nitrostat) 0.4 mg SL Q5M PRN PRN Reason: Chest Pain Ptom - Brimonidine 0 (.15% Ophth Soln) 1 each EYEBOTH BID [facility] Last Admin: 06/23/17 08:52 Dose: 1 each Ptom - Refresh (Optive Ophth Soln) 0 each EYEBOTH BID [facility] Last Admin: 06/23/17 08:53 Dose: 1 each Ptom - Roflumilast (500mg (Daliresp)) 1 each PO DAILY [facility] Last Admin: 06/23/17 08:53 Dose: 1 each Saxagliptin Hydrochloride (Onglyza) 5 mg PO DAILY [facility] Last Admin: 06/23/17 08:52 Dose: 5 mg Simvastatin (Zocor) 40 mg PO BEDTIME [facility] Last Admin: 06/22/17 21:10 Dose: 40 mg Sodium Chloride (Saline Flush) 10 ml FLUSH ASDIRECTED PRN PRN Reason: Keep Vein Open Last Admin: 06/19/17 12:39 Dose: 10 ml Temazepam (Restoril) 15 mg PO BEDTIME PRN PRN Reason: Insomnia Last Admin: 06/22/17 23:09 Dose: 15 mg Tramadol HCl (Ultram) 50 mg PO Q6H PRN PRN Reason: Pain Last Admin: 06/22/17 23:08 Dose: 50 mg Discontinued Medications Albuterol/Ipratropium (Duoneb 3.0-0.5 Mg/3 Ml) ml INH Q6H [facility] Albuterol/Ipratropium (Duoneb 3.0-0.5 Mg/3 Ml) 3 ml INH Q6H [facility] Last Admin: 06/20/17 11:27 Dose: 3 ml Budesonide (Pulmicort) 0.25 mg NEB BIDRT [facility] Last Admin: 06/22/17 09:29 Dose: 0.25 mg Budesonide (Pulmicort) 0.25 mg NEB BID [facility] Budesonide (Pulmicort) 0.5 mg NEB BIDRT [facility] Last Admin: 06/23/17 08:20 Dose: 0.5 mg Fentanyl (Duragesic) 12 mcg TRDERM Q72H [facility] Last Admin: 06/19/17 18:04 Dose: 12 mcg Fentanyl (Duragesic) 25 mcg TRDERM Q72H [facility] Last Admin: 06/20/17 10:59 Dose: 25 mcg Furosemide (Lasix) 40 mg IVPUSH NOW ONE Stop: 06/19/17 11:31 Last Admin: 06/19/17 11:44 Dose: 40 mg Furosemide (Lasix) 40 mg IVPUSH NOW ONE Stop: 06/20/17 08:01 Last Admin: 06/20/17 08:22 Dose: 40 mg Furosemide (Lasix) 40 mg IVPUSH NOW ONE Stop: 06/21/17 10:11 Last Admin: 06/21/17 10:50 Dose: 40 mg Glipizide (Glucotrol) 10 mg PO DAILY@0630 [facility] Hydromorphone HCl (Dilaudid) 0.25 mg IVPUSH ONETIME ONE Stop: 06/19/17 11:20 Last Admin: 06/19/17 15:40 Dose: Not Given Hydromorphone HCl (Dilaudid) 0.5 mg IVPUSH ONETIME ONE Stop: 06/19/17 11:21 Last Admin: 06/19/17 15:41 Dose: Not Given Levofloxacin/Dextrose 750 mg/ (Premix) 150 mls @ 100 mls/hr IV ONETIME ONE Stop: 06/19/17 16:06 Last Admin: 06/19/17 15:34 Dose: 100 mls/hr Magnesium Sulfate 2 gm/ Premix 50 mls @ 25 mls/hr IV ONETIME ONE Stop: 06/19/17 20:07 Last Admin: 06/19/17 21:29 Dose: 25 mls/hr Magnesium Sulfate 2 gm/ Premix 50 mls @ 25 mls/hr IV ONETIME ONE Stop: 06/20/17 11:34 Last Admin: 06/20/17 10:16 Dose: 25 mls/hr Magnesium Sulfate 2 gm/ Premix 50 mls @ 25 mls/hr IV ONETIME ONE Stop: 06/21/17 11:59 Last Admin: 06/21/17 10:48 Dose: 25 mls/hr Sodium Chloride (Normal Saline) 1,000 mls @ 100 mls/hr IV ASDIRECTED [facility] Stop: 06/23/17 00:29 Last Admin: 06/21/17 14:53 Dose: 100 mls/hr Sodium Chloride (Normal Saline) 1,000 mls @ 75 mls/hr IV ASDIRECTED [facility] Insulin Aspart (Novolog) 0 unit SUBCUT QIDACANDBED [facility] PRN Reason: Protocol Last Admin: 06/21/17 09:07 Dose: 1 unit Insulin Detemir (Levemir) 10 unit SUBCUT BID [facility] Last Admin: 06/20/17 11:37 Dose: Not Given Ketorolac Tromethamine (Toradol) 30 mg IVPUSH Q6H [facility] Stop: 06/22/17 03:31 Last Admin: 06/22/17 03:28 Dose: 30 mg Levofloxacin (Levaquin) 750 mg PO Q24H [facility] Last Admin: 06/20/17 11:37 Dose: Not Given Magnesium Hydroxide (Milk Of Magnesia) 30 ml PO ONETIME ONE Stop: 06/22/17 17:31 Last Admin: 06/22/17 17:55 Dose: 30 ml Metformin HCl (Glucophage) 1,000 mg PO BIDMEALS [facility] Last Admin: 06/21/17 06:49 Dose: 1,000 mg Metoprolol Succinate (Toprol Xl) 50 mg PO DAILY [facility] Mometasone Furoate/Formoterol Fumar (Dulera 200-5 Mcg) 2 puff IH BID [facility] Last Admin: 06/21/17 08:24 Dose: 2 puff Morphine Sulfate (Morphine) 1 mg IVPUSH Q8H PRN PRN Reason: Pain Last Admin: 06/19/17 18:04 Dose: 1 mg Morphine Sulfate (Morphine) 2 mg IVPUSH ONETIME ONE Stop: 06/20/17 10:31 Last Admin: 06/20/17 10:43 Dose: 2 mg Nicotine (Habitrol) 21 mg TRDERM DAILY [facility] Ondansetron HCl (Zofran) 4 mg IVPUSH ONETIME ONE Stop: 06/19/17 11:20 Last Admin: 06/19/17 12:39 Dose: Not Given Oral Electrolytes (Thermotabs) 2 each PO TID [facility] Last Admin: 06/22/17 23:08 Dose: 2 each Ptom - Glipizide (10mg Tablet) 1 each PO DAILY@0630 [facility] Last Admin: 06/20/17 11:38 Dose: Not Given Ptom - Metformin (500mg Tablet) 2 each PO BIDMEALS [facility] Last Admin: 06/20/17 11:38 Dose: Not Given Ptom: Metoprolol Succinate 50mg Tablet 1 each PO DAILY [facility] Last Admin: 06/20/17 11:38 Dose: Not Given Ptom: Simvastatin (40mg Tablet) 1 each PO BEDTIME [facility] Last Admin: 06/20/17 10:04 Dose: Not Given Ptom - Sitagliptin ( (Januvia) 100mg) 1 each PO DAILY [facility] Last Admin: 06/20/17 10:50 Dose: 1 each Tramadol HCl (Ultram) 50 mg PO ONETIME ONE Stop: 06/19/17 15:09 Last Admin: 06/19/17 15:12 Dose: 50 mg - Exam Quality Assessment: Supplemental Oxygen, DVT Prophylaxis General: Alert, Oriented, Cooperative, No Acute Distress HEENT: Pupils Equal, Pupils Reactive, EOMI, Mucous Membr. Moist/[place] Neck: Supple, Trachea Midline, No JVD, No Thyromegaly Lungs: Normal Respiratory Effort, Decreased Breath Sounds, Rhonchi, Wheezing Cardiovascular: Regular Rate, Regular Rhythm, No Murmurs GI/Abdominal Exam: Normal Bowel Sounds, Soft, Non-Tender, No Organomegaly, No Distention, No Abnormal Bruit, No Mass, Pelvis Stable (Male) Exam: Deferred Back Exam: Normal Inspection, Decreased Range of Motion Extremities: Normal Inspection, Non-Tender, No Pedal Edema Peripheral Pulses: 2+: Radial (L), Radial (R), Posterior Tibial (L), Posterior Tibial (R), Dorsalis Pedis (L), Dorsalis Pedis (R) Skin: Warm, Dry, Intact Neurological: No New Focal Deficit Psy/Mental Status: Alert, Normal Affect, Depressed - Problem List & Annotations (1) Back pain of thoracolumbar region SNOMED Code(s): 179598731 Code(s): M54.5 - LOW BACK PAIN Status: Acute Current Visit: Yes (2) CHF (congestive heart failure) SNOMED Code(s): 37321856 Code(s): I50.9 - HEART FAILURE, UNSPECIFIED Status: Acute Priority: High Current Visit: Yes QualifierTitle: Congestive heart failure type: diastolic Congestive heart failure chronicity: acute on chronic Qualified Code(s): I50.33 - Acute on chronic diastolic (congestive) heart failure (3) Pneumonia SNOMED Code(s): 627867673 Code(s): J18.9 - PNEUMONIA, UNSPECIFIED ORGANISM Status: Acute Priority: High Current Visit: Yes QualifierTitle: Pneumonia type: due to unspecified organism Laterality: left Lung location: lower lobe of lung Qualified Code(s): J18.1 - Lobar pneumonia, unspecified organism (4) Right leg pain SNOMED Code(s): 571910696 Code(s): M79.604 - PAIN IN RIGHT LEG Status: Acute Priority: High Current Visit: Yes (5) COLD, Chronic obstructive lung disease SNOMED Code(s): 80664130 Code(s): J44.9 - CHRONIC OBSTRUCTIVE PULMONARY DISEASE, UNSPECIFIED Status : Acute Priority: High Current Visit: Yes (6) Diabetes mellitus SNOMED Code(s): 62390054 Code(s): E11.9 - TYPE 2 DIABETES MELLITUS WITHOUT COMPLICATIONS Status: Chronic Priority: High Current Visit: Yes QualifierTitle: Diabetes mellitus type: type 2 Diabetes mellitus complication status: with unspecified complications Diabetes mellitus manager sign insulin use: without care home use Qualified Code(s): E11.8 - Type 2 diabetes mellitus with unspecified complications - Problem List Review Problem List Initiated/Reviewed/Updated: Yes - Plan Plan:: Impression: CAP- organism unspecified at this time -Repeat CXR on 06/21/17 with worsening of probable pneumonia despite clinically appears non-toxic -WBC and CRP trending down -Add Rocephin to Levaquin IV -Cont with Neb tx, RT, IS/FV -Mycoplasma and strep pneumonia negative; influenza screening and respiratory viral panel both negative -Recent CAP treated with zosyn, History of LLL lung abscess Back pain with degenerative changes thoracolumbar spine; no compression fractures are noted on CT of thoracic and lumbar spines--back pain improved today -poor pain control---is improved today -Sciatica -Pain management- Fentanyl patch increased to 25mcg yesterday- discontinue -PO tramadol and PRN Morphine Acute right leg pain--as of last night--? sciatica relating to acute on chronic LBP but back pain itself is improved today--exam of leg is unremarkable -Will obtain xrays of rt hip and knee--->popliteal cyst -Labs: uric acid, esr, rheumatoid factor -Venous doppler to r/o DVT- negative -Consider Orthopedic consult Query CHF, mild bilateral pulmonary congestion. -? vascular congestion on CXR -BNP 1062-->1067 - repeat tomorrow -IV lasix with caution as he has been hypotensive -Has hx of CHF -Consider echo if not done in last 6 months; will check records. Depression -Psych consult- attempted today but patient was still confused. Reattempt Resolved: Electrolyte abnormalities: hypokalemia/hypomagnesemia -Replete and recheck- follow daily labs Chronic DM type 2- A1C- Novolog SSI/Accuchecks AC/HS---avoid steroids if possible as last admission blood sugars skyrocketed with steroid use. -Hold metformin due to IV toradol use, avoid kidney injury, cover with SSI-- increase to medium dosing protocol History of CAD/CABG HLD--cholesterol levels WNL/acceptable- cont home meds HTN- stable- cont home meds HF Hx COPD BPH Hx AVR- on coumadin- INR 1.52 today Other: Home meds CHF education TSH WNL PT/OT consults consult for SNF for rehab stay---Plans for SNF at [facility], possible discharge Monday pending progress and ongoing evaluation as above. Daily labs DVT/GI prophylaxis Patient is Full Code status PCP is Dr. Coyle with [facility] in [place] LOS> 96hr due to slow response to treatment, difficulty obtaining pain management, pending SNF placement. <Yoko Wu - Last Filed: 06/24/17 16:14> - Patient Data Vitals - Most Recent: Last Vital Signs Temp 36.1 C 06/24/17 09:01 Pulse 103 H 06/24/17 09:49 Resp 20 06/24/17 09:01 BP 109/63 06/24/17 09:49 Pulse Ox 94 L 06/24/17 14:59 I&O - Last 24 Hours: Intake & Output 06/24/17 06/24/17 06/24/17 06:59 14:59 22:59 Intake Total 400 290 Output Total 975 Balance -575 290 Lab Results Last 24 Hours: Laboratory Results - last 24 hr 06/23/17 06/23/17 06/24/17 Range/Units 16:55 21:01 06:19 WBC (4.23-9.07) K/mm3 RBC (4.63-6.08) M/mm3 Hgb (13.7-17.5) gm/L Hct (40.1-51.0) % MCV (79.0-92.2) fl MCH (25.7-32.2) pg MCHC (32.2-35.5) g/dl RDW Std Deviation (35.1-43.9) fL Plt Count (163-337) K/mm3 MPV (9.4-12.3) fl Neut % (Auto) (34.0-67.9) % Lymph % (Auto) (21.8-53.1) % Dickinson % (Auto) (5.3-12.2) % Eos % (Auto) (0.8-7.0) Baso % (Auto) (0.1-1.2) % Neut # (Auto) (1.78-5.38) K/mm3 Lymph # (Auto) (1.32-3.57) K/mm3 Dickinson # (Auto) (0.30-0.82) K/mm3 Eos # (Auto) (0.04-0.54) K/mm3 Baso # (Auto) (0.01-0.08) K/mm3 Manual Slide Review Sodium (136-145) mEq/L Potassium (3.5-5.1) mEq/L Chloride (98-107) mEq/L Carbon Dioxide (21-32) mEq/L Anion Gap (5-15) BUN (7-18) mg/dL Creatinine (0.7-1.3) mg/dL Est Cr Clr Drug Dosing mL/min Estimated GFR (MDRD) (>60) mL/min BUN/Creatinine Ratio (14-18) Glucose (83-115) mg/dL POC Glucose 248 H 333 H 230 H (83-110) mg/dL Calcium (8.5-10.1) mg/dL Magnesium (1.8-2.4) mg/dl C-Reactive Protein (<1.0) mg/dL NT-Pro-B Natriuret Pep (0-450) pg/mL 06/24/17 06/24/17 06/24/17 Range/Units 07:01 07:01 12:07 WBC 10.97 H (4.23-9.07) K/mm3 RBC 3.37 L (4.63-6.08) M/mm3 Hgb 10.2 L (13.7-17.5) gm/L Hct 32.7 L (40.1-51.0) % MCV 97.0 H (79.0-92.2) fl MCH 30.3 (25.7-32.2) pg MCHC 31.2 L (32.2-35.5) g/dl RDW Std Deviation 47.9 H (35.1-43.9) fL Plt Count 262 (163-337) K/mm3 MPV 9.5 (9.4-12.3) fl Neut % (Auto) 78.8 H (34.0-67.9) % Lymph % (Auto) 7.3 L (21.8-53.1) % Dickinson % (Auto) 12.7 H (5.3-12.2) % Eos % (Auto) 0.6 L (0.8-7.0) Baso % (Auto) 0.1 (0.1-1.2) % Neut # (Auto) 8.65 H (1.78-5.38) K/mm3 Lymph # (Auto) 0.80 L (1.32-3.57) K/mm3 Dickinson # (Auto) 1.39 H (0.30-0.82) K/mm3 Eos # (Auto) 0.07 (0.04-0.54) K/mm3 Baso # (Auto) 0.01 (0.01-0.08) K/mm3 Manual Slide Review Abnormal smear Sodium 131 L (136-145) mEq/L Potassium 5.0 (3.5-5.1) mEq/L Chloride 97 L (98-107) mEq/L Carbon Dioxide 32 (21-32) mEq/L Anion Gap 7.0 (5-15) BUN 19 H (7-18) mg/dL Creatinine 0.9 (0.7-1.3) mg/dL Est Cr Clr Drug Dosing 62.20 mL/min Estimated GFR (MDRD) > 60 (>60) mL/min BUN/Creatinine Ratio 21.1 H (14-18) Glucose 204 H (83-115) mg/dL POC Glucose 298 H (83-110) mg/dL Calcium 9.0 (8.5-10.1) mg/dL Magnesium 1.8 (1.8-2.4) mg/dl C-Reactive Protein 24.6 H* (<1.0) mg/dL NT-Pro-B Natriuret Pep 1511 H (0-450) pg/mL Carlos Results Last 24 Hours: Microbiology 06/21/17 14:05 Streptococcus pneumoniae Antigen (M - Final Urine Med Orders - Current: Current Medications Albuterol (Proventil Neb Soln) 2.5 mg NEB Q4HR PRN PRN Reason: Shortness of Breath Albuterol/Ipratropium (Duoneb 3.0-0.5 Mg/3 Ml) 3 ml INH Q6H [facility] Last Admin: 06/24/17 14:59 Dose: 3 ml Aspirin (Aspirin) 81 mg PO DAILY [facility] Last Admin: 06/24/17 09:10 Dose: 81 mg Budesonide (Pulmicort) 0.5 mg NEB BID [facility] Last Admin: 06/24/17 08:25 Dose: 0.5 mg Enoxaparin Sodium (Lovenox) 40 mg SUBCUT DAILY [facility] Last Admin: 06/24/17 09:10 Dose: 40 mg Famotidine (Pepcid) 20 mg PO BID [facility] Last Admin: 06/24/17 09:10 Dose: 20 mg Glipizide (Glucotrol) 10 mg PO DAILY@0630 [facility] Last Admin: 06/24/17 06:20 Dose: 10 mg Guaifenesin (Mucinex) 1,200 mg PO Q12HR PRN PRN Reason: Congestion Last Admin: 06/24/17 13:31 Dose: 1,200 mg Hydralazine HCl (Apresoline) 10 mg IVPUSH Q4H PRN PRN Reason: sb/p >150 Levofloxacin/Dextrose 750 mg/ (Premix) 150 mls @ 100 mls/hr IV Q24H [facility] Last Admin: 06/23/17 17:08 Dose: 100 mls/hr Ceftriaxone Sodium 1 gm/ (Sodium Chloride) 100 mls @ 200 mls/hr IV Q24H [facility] Last Admin: 06/24/17 13:30 Dose: 200 mls/hr Insulin Aspart (Novolog) 0 unit SUBCUT QIDACANDBED [facility] PRN Reason: Protocol Last Admin: 06/24/17 12:40 Dose: 6 units Magnesium Oxide (Magnesium Oxide) 400 mg PO BID [facility] Last Admin: 06/24/17 09:11 Dose: 400 mg Metoprolol Succinate (Toprol Xl) 50 mg PO DAILY [facility] Last Admin: 06/24/17 09:49 Dose: 50 mg Miscellaneous Information (Remove Patch) 1 ea TRDERM Q72H [facility] Last Admin: 06/23/17 12:17 Dose: 1 ea Morphine Sulfate (Morphine) 2 mg IVPUSH Q6H PRN PRN Reason: Pain Last Admin: 06/21/17 06:16 Dose: 2 mg Nicotine (Habitrol) 7 mg TRDERM DAILY [facility] Last Admin: 06/24/17 09:08 Dose: Not Given Nitroglycerin (Nitrostat) 0.4 mg SL Q5M PRN PRN Reason: Chest Pain Ptom - Brimonidine 0 (.15% Ophth Soln) 1 each EYEBOTH BID [facility] Last Admin: 06/24/17 09:11 Dose: 1 each Ptom - Refresh (Optive Ophth Soln) 0 each EYEBOTH BID [facility] Last Admin: 06/24/17 09:11 Dose: 1 each Ptom - Roflumilast (500mg (Daliresp)) 1 each PO DAILY [facility] Last Admin: 06/24/17 09:11 Dose: 1 each Saxagliptin Hydrochloride (Onglyza) 5 mg PO DAILY [facility] Last Admin: 06/24/17 09:11 Dose: 5 mg Simvastatin (Zocor) 40 mg PO BEDTIME [facility] Last Admin: 06/23/17 21:19 Dose: 40 mg Sodium Chloride (Saline Flush) 10 ml FLUSH ASDIRECTED PRN PRN Reason: Keep Vein Open Last Admin: 06/19/17 12:39 Dose: 10 ml Tamsulosin HCl ([facility]om[facility]) [facility] Last Admin: 06/24/17 13:31 Dose: 0.4 mg Temazepam (Restoril) 15 mg PO BEDTIME PRN PRN Reason: Insomnia Last Admin: 06/24/17 00:02 Dose: 15 mg Tramadol HCl (Ultram) 50 mg PO Q6H PRN PRN Reason: Pain Last Admin: 06/22/17 23:08 Dose: 50 mg Discontinued Medications Albuterol/Ipratropium (Duoneb 3.0-0.5 Mg/3 Ml) ml INH Q6H [facility] Albuterol/Ipratropium (Duoneb 3.0-0.5 Mg/3 Ml) 3 ml INH Q6H [facility] Last Admin: 06/20/17 11:27 Dose: 3 ml Budesonide (Pulmicort) 0.25 mg NEB BIDRT [facility] Last Admin: 06/22/17 09:29 Dose: 0.25 mg Budesonide (Pulmicort) 0.25 mg NEB BID [facility] Budesonide (Pulmicort) 0.5 mg NEB BIDRT [facility] Last Admin: 06/23/17 08:20 Dose: 0.5 mg Fentanyl (Duragesic) 12 mcg TRDERM Q72H [facility] Last Admin: 06/19/17 18:04 Dose: 12 mcg Fentanyl (Duragesic) 25 mcg TRDERM Q72H [facility] Last Admin: 06/20/17 10:59 Dose: 25 mcg Furosemide (Lasix) 40 mg IVPUSH NOW ONE Stop: 06/19/17 11:31 Last Admin: 06/19/17 11:44 Dose: 40 mg Furosemide (Lasix) 40 mg IVPUSH NOW ONE Stop: 06/20/17 08:01 Last Admin: 06/20/17 08:22 Dose: 40 mg Furosemide (Lasix) 40 mg IVPUSH NOW ONE Stop: 06/21/17 10:11 Last Admin: 06/21/17 10:50 Dose: 40 mg Furosemide (Lasix) 40 mg IVPUSH NOW ONE Stop: 06/23/17 19:35 Last Admin: 06/23/17 20:24 Dose: Not Given Furosemide (Lasix) 20 mg IVPUSH ONETIME ONE Stop: 06/24/17 08:01 Glipizide (Glucotrol) 10 mg PO DAILY@0630 [facility] Hydromorphone HCl (Dilaudid) 0.25 mg IVPUSH ONETIME ONE Stop: 06/19/17 11:20 Last Admin: 06/19/17 15:40 Dose: Not Given Hydromorphone HCl (Dilaudid) 0.5 mg IVPUSH ONETIME ONE Stop: 06/19/17 11:21 Last Admin: 06/19/17 15:41 Dose: Not Given Levofloxacin/Dextrose 750 mg/ (Premix) 150 mls @ 100 mls/hr IV ONETIME ONE Stop: 06/19/17 16:06 Last Admin: 06/19/17 15:34 Dose: 100 mls/hr Magnesium Sulfate 2 gm/ Premix 50 mls @ 25 mls/hr IV ONETIME ONE Stop: 06/19/17 20:07 Last Admin: 06/19/17 21:29 Dose: 25 mls/hr Magnesium Sulfate 2 gm/ Premix 50 mls @ 25 mls/hr IV ONETIME ONE Stop: 06/20/17 11:34 Last Admin: 06/20/17 10:16 Dose: 25 mls/hr Magnesium Sulfate 2 gm/ Premix 50 mls @ 25 mls/hr IV ONETIME ONE Stop: 06/21/17 11:59 Last Admin: 06/21/17 10:48 Dose: 25 mls/hr Sodium Chloride (Normal Saline) 1,000 mls @ 100 mls/hr IV ASDIRECTED [facility] Stop: 06/23/17 00:29 Last Admin: 06/21/17 14:53 Dose: 100 mls/hr Sodium Chloride (Normal Saline) 1,000 mls @ 75 mls/hr IV ASDIRECTED [facility] Sodium Chloride (Normal Saline) 1,000 mls @ 50 mls/hr IV ASDIRECTED [facility] Last Admin: 06/22/17 15:26 Dose: 50 mls/hr Insulin Aspart (Novolog) 0 unit SUBCUT [id number] [facility] PRN Reason: Protocol Last Admin: 06/21/17 09:07 Dose: 1 unit Insulin Detemir (Levemir) 10 unit SUBCUT BID [facility] Last Admin: 06/20/17 11:37 Dose: Not Given Ketorolac Tromethamine (Toradol) 30 mg IVPUSH Q6H [facility] Stop: 06/22/17 03:31 Last Admin: 06/22/17 03:28 Dose: 30 mg Levofloxacin (Levaquin) 750 mg PO Q24H [facility] Last Admin: 06/20/17 11:37 Dose: Not Given Magnesium Hydroxide (Milk Of Magnesia) 30 ml PO ONETIME ONE Stop: 06/22/17 17:31 Last Admin: 06/22/17 17:55 Dose: 30 ml Magnesium Hydroxide (Milk Of Magnesia) 30 ml PO ONETIME ONE Stop: 06/23/17 21:01 Metformin HCl (Glucophage) 1,000 mg PO BIDMEALS [facility] Last Admin: 06/21/17 06:49 Dose: 1,000 mg Metoprolol Succinate (Toprol Xl) 50 mg PO DAILY [facility] Mometasone Furoate/Formoterol Fumar (Dulera 200-5 Mcg) 2 puff IH BID [facility] Last Admin: 06/21/17 08:24 Dose: 2 puff Morphine Sulfate (Morphine) 1 mg IVPUSH Q8H PRN PRN Reason: Pain Last Admin: 06/19/17 18:04 Dose: 1 mg Morphine Sulfate (Morphine) 2 mg IVPUSH ONETIME ONE Stop: 06/20/17 10:31 Last Admin: 06/20/17 10:43 Dose: 2 mg Nicotine (Habitrol) 21 mg TRDERM DAILY [facility] Ondansetron HCl (Zofran) 4 mg IVPUSH ONETIME ONE Stop: 06/19/17 11:20 Last Admin: 06/19/17 12:39 Dose: Not Given Oral Electrolytes (Thermotabs) 2 each PO TID [facility] Last Admin: 06/22/17 23:08 Dose: 2 each Ptom - Glipizide (10mg Tablet) 1 each PO DAILY@0630 [facility] Last Admin: 06/20/17 11:38 Dose: Not Given Ptom - Metformin (500mg Tablet) 2 each PO BIDMEALS [facility] Last Admin: 06/20/17 11:38 Dose: Not Given Ptom: Metoprolol Succinate 50mg Tablet 1 each PO DAILY [facility] Last Admin: 06/20/17 11:38 Dose: Not Given Ptom: Simvastatin (40mg Tablet) 1 each PO BEDTIME [facility] Last Admin: 06/20/17 10:04 Dose: Not Given Ptom - Sitagliptin ( (Januvia) 100mg) 1 each PO DAILY [facility] Last Admin: 06/20/17 10:50 Dose: 1 each Tramadol HCl (Ultram) 50 mg PO ONETIME ONE Stop: 06/19/17 15:09 Last Admin: 06/19/17 15:12 Dose: 50 mg - Problem List & Annotations (1) Back pain of thoracolumbar region SNOMED Code(s): 955733475 Code(s): M54.5 - LOW BACK PAIN Status: Acute Current Visit: Yes (2) COLD, Chronic obstructive lung disease SNOMED Code(s): 55912061 Code(s): J44.9 - CHRONIC OBSTRUCTIVE PULMONARY DISEASE, UNSPECIFIED Status : Acute Priority: High Current Visit: Yes (3) Dehydration SNOMED Code(s): 77144831 Code(s): E86.0 - DEHYDRATION Status: Acute Current Visit: No (4) Pneumonia SNOMED Code(s): 915650716 Code(s): J18.9 - PNEUMONIA, UNSPECIFIED ORGANISM Status: Acute Priority: High Current Visit: Yes Qualifiers: Pneumonia type: due to unspecified organism Laterality: left Lung location: lower lobe of lung Qualified Code(s): J18.1 - Lobar pneumonia, unspecified organism - My Orders Last 24 Hours: My Active Orders 06/23/17 21:00 Budesonide [Pulmicort] 0.5 mg NEB BID 06/24/17 13:00 Tamsulosin [Flomax] 0.4 mg PO BIDPC
[2017-06-23] MEDS: Levofloxacin/Dextrose 5%-Water 750 MG in Premix Bag 1 BAG IV SCH (17:08)
[2017-06-23] MEDS ORDERED: Furosemide 40 MG/4 ML VIAL IVPUSH ONE (19:34)
[2017-06-23] MEDS ORDERED: Magnesium Hydroxide 400 MG/5 ML Susp 30 ML Cup PO ONE (21:00)
[2017-06-23] MEDS: Simvastatin 40 MG Tab PO SCH (21:19)
[2017-06-23] MEDS: Budesonide 0.5 MG/2 ML Neb Susp NEB SCH (21:32)
--- NOTE | 2017-06-23 22:25 | PCM.SN ---
- Free Text/Narrative Note: [facility] nursing and the patients family approached me to address some concerns. Griffin has had multiple episodes of confusion. He does not become agitated. Nursing reports he knew the month and year, along with which town he was in, but he could not tell them where he was or what building he was in. Family reports he was watching chickens on TV and then attempted to get out of bed, telling them "I need to go lay an egg." They assumed he was joking but the daughter states he just had a blank look on his face. Nursing reports he told them Robin Junito was the president now and when they attempted to have him elaborate on this it was pretty clear he was serious about this comment. His daughter reports that when providers are in the room he communicates well but with family he will often have a blank look. He appears to gravitate to what he recently watched on TV. They are also questioning some depression and the daughter states "it just doesn't seem like he matters what you do to him anymore." These episodes of confusion have been occurring for the last 3 nights while in our care. Nursing reports similar episodes last time he was hospitalized. Yesterday he was quite confused but had started a fentanyl patch, which was thought to be the cause of confusion. This was discontinued and he appeared to be doing well today and on my initial exam. There is no facial droop , weakness, or anything to signal a stroke, which was a concern of the family. I explained how often times when a patient is taken out of a regular home environment we can see confusion and early signs of dementia. I explained that Dr. Knowles was consulted, although when he attempted a visit today the patient was quite confused and nursing decided to attempt this on a different day. Will continue to await Dr. Knowles recommendations.
[2017-06-24] MEDS: Temazepam 15 MG Cap PO PRN ×2 (00:02→21:10)
[2017-06-24] MEDS: Albuterol/Ipratropium 3.0-0.5 MG/3 ML Neb Soln INH SCH ×4 (02:52→20:36)
[2017-06-24] MEDS ORDERED: Furosemide 20 MG/2 ML VIAL IVPUSH ONE (08:00)
[2017-06-24] MEDS: Budesonide 0.5 MG/2 ML Neb Susp NEB SCH ×2 (08:25→20:36)
[2017-06-24] MEDS: Nicotine 7 MG/24 Hr Patch TRDERM SCH (09:08)
[2017-06-24] MEDS: Insulin Aspart 100 Units/ML 3 ML Pen SUBCUT SCH ×4 (09:09→21:12)
[2017-06-24] MEDS: Enoxaparin 40 MG/0.4 ML Syringe SUBCUT SCH (09:10)
[2017-06-24] MEDS: Aspirin 81 MG Tab.Chew PO SCH (09:10)
[2017-06-24] MEDS: Famotidine 20 MG Tab PO SCH ×2 (09:10→21:10)
[2017-06-24] MEDS: REFRESH OPTIVE EYEBOTH SCH ×2 (09:11→21:11)
[2017-06-24] MEDS: Magnesium Oxide 400 MG Tab PO SCH ×2 (09:11→21:07)
[2017-06-24] MEDS: BRIMONIDINE 0.15% EYEBOTH SCH ×2 (09:11→21:10)
[2017-06-24] MEDS: Saxagliptin 5 MG Tab PO SCH (09:11)
[2017-06-24] MEDS: ROFLUMILAST 500 MG PO SCH (09:11)
[2017-06-24] MEDS: Metoprolol Succinate 50 MG Tab.ER PO SCH (09:49)
--- NOTE | 2017-06-24 11:07 | PCM.PN ---
- General Info Date of Service: 06/24/17 Functional Status: Reports: Tolerating Diet, Ambulating - Review of Systems General: Reports: Weakness HEENT: Reports: No Symptoms Pulmonary: Reports: No Symptoms Cardiovascular: Reports: No Symptoms Gastrointestinal: Reports: No Symptoms Genitourinary: Reports: No Symptoms Musculoskeletal: Reports: No Symptoms Skin: Reports: No Symptoms Neurological: Reports: No Symptoms Psychiatric: Reports: No Symptoms - Patient Data Vitals - Most Recent: Last Vital Signs Temp 36.1 C 06/24/17 09:01 Pulse 103 H 06/24/17 09:49 Resp 20 06/24/17 09:01 BP 109/63 06/24/17 09:49 Pulse Ox 93 L 06/24/17 09:01 Weight - Most Recent: 74.644 kg I&O - Last 24 Hours: Intake & Output 06/23/17 06/24/17 06/24/17 22:59 06:59 14:59 Intake Total 1000 400 170 Output Total 1425 975 Balance -425 -575 170 Lab Results Last 24 Hours: Laboratory Results - last 24 hr 06/23/17 06/23/17 06/23/17 Range/Units 12:03 16:55 21:01 WBC (4.23-9.07) K/mm3 RBC (4.63-6.08) M/mm3 Hgb (13.7-17.5) gm/L Hct (40.1-51.0) % MCV (79.0-92.2) fl MCH (25.7-32.2) pg MCHC (32.2-35.5) g/dl RDW Std Deviation (35.1-43.9) fL Plt Count (163-337) K/mm3 MPV (9.4-12.3) fl Neut % (Auto) (34.0-67.9) % Lymph % (Auto) (21.8-53.1) % [place] % (Auto) (5.3-12.2) % Eos % (Auto) (0.8-7.0) Baso % (Auto) (0.1-1.2) % Neut # (Auto) (1.78-5.38) K/mm3 Lymph # (Auto) (1.32-3.57) K/mm3 [place] # (Auto) (0.30-0.82) K/mm3 Eos # (Auto) (0.04-0.54) K/mm3 Baso # (Auto) (0.01-0.08) K/mm3 Manual Slide Review Sodium (136-145) mEq/L Potassium (3.5-5.1) mEq/L Chloride (98-107) mEq/L Carbon Dioxide (21-32) mEq/L Anion Gap (5-15) BUN (7-18) mg/dL Creatinine (0.7-1.3) mg/dL Est Cr Clr Drug Dosing mL/min Estimated GFR (MDRD) (>60) mL/min BUN/Creatinine Ratio (14-18) Glucose (83-115) mg/dL POC Glucose 277 H 248 H 333 H (83-110) mg/dL Calcium (8.5-10.1) mg/dL Magnesium (1.8-2.4) mg/dl C-Reactive Protein (<1.0) mg/dL NT-Pro-B Natriuret Pep (0-450) pg/mL 06/24/17 06/24/17 06/24/17 Range/Units 06:19 07:01 07:01 WBC 10.97 H (4.23-9.07) K/mm3 RBC 3.37 L (4.63-6.08) M/mm3 Hgb 10.2 L (13.7-17.5) gm/L Hct 32.7 L (40.1-51.0) % MCV 97.0 H (79.0-92.2) fl MCH 30.3 (25.7-32.2) pg MCHC 31.2 L (32.2-35.5) g/dl RDW Std Deviation 47.9 H (35.1-43.9) fL Plt Count 262 (163-337) K/mm3 MPV 9.5 (9.4-12.3) fl Neut % (Auto) 78.8 H (34.0-67.9) % Lymph % (Auto) 7.3 L (21.8-53.1) % [place] % (Auto) 12.7 H (5.3-12.2) % Eos % (Auto) 0.6 L (0.8-7.0) Baso % (Auto) 0.1 (0.1-1.2) % Neut # (Auto) 8.65 H (1.78-5.38) K/mm3 Lymph # (Auto) 0.80 L (1.32-3.57) K/mm3 [place] # (Auto) 1.39 H (0.30-0.82) K/mm3 Eos # (Auto) 0.07 (0.04-0.54) K/mm3 Baso # (Auto) 0.01 (0.01-0.08) K/mm3 Manual Slide Review Abnormal smear Sodium 131 L (136-145) mEq/L Potassium 5.0 (3.5-5.1) mEq/L Chloride 97 L (98-107) mEq/L Carbon Dioxide 32 (21-32) mEq/L Anion Gap 7.0 (5-15) BUN 19 H (7-18) mg/dL Creatinine 0.9 (0.7-1.3) mg/dL Est Cr Clr Drug Dosing 62.20 mL/min Estimated GFR (MDRD) > 60 (>60) mL/min BUN/Creatinine Ratio 21.1 H (14-18) Glucose 204 H (83-115) mg/dL POC Glucose 230 H (83-110) mg/dL Calcium 9.0 (8.5-10.1) mg/dL Magnesium 1.8 (1.8-2.4) mg/dl C-Reactive Protein 24.6 H* (<1.0) mg/dL NT-Pro-B Natriuret Pep 1511 H (0-450) pg/mL Carlos Results Last 24 Hours: Microbiology 06/21/17 14:05 Streptococcus pneumoniae Antigen (M - Final Urine Med Orders - Current: Current Medications Albuterol (Proventil Neb Soln) 2.5 mg NEB Q4HR PRN PRN Reason: Shortness of Breath Albuterol/Ipratropium (Duoneb 3.0-0.5 Mg/3 Ml) 3 ml INH Q6H [facility] Last Admin: 06/24/17 08:25 Dose: 3 ml Aspirin (Aspirin) 81 mg PO DAILY [facility] Last Admin: 06/24/17 09:10 Dose: 81 mg Budesonide (Pulmicort) 0.5 mg NEB BID [facility] Last Admin: 06/24/17 08:25 Dose: 0.5 mg Enoxaparin Sodium (Lovenox) 40 mg SUBCUT DAILY [facility] Last Admin: 06/24/17 09:10 Dose: 40 mg Famotidine (Pepcid) 20 mg PO BID [facility] Last Admin: 06/24/17 09:10 Dose: 20 mg Glipizide (Glucotrol) 10 mg PO DAILY@0630 [facility] Last Admin: 06/24/17 06:20 Dose: 10 mg Guaifenesin (Mucinex) 1,200 mg PO Q12HR PRN PRN Reason: Congestion Last Admin: 06/22/17 23:08 Dose: 1,200 mg Hydralazine HCl (Apresoline) 10 mg IVPUSH Q4H PRN PRN Reason: sb/p >150 Levofloxacin/Dextrose 750 mg/ (Premix) 150 mls @ 100 mls/hr IV Q24H [facility] Last Admin: 06/23/17 17:08 Dose: 100 mls/hr Ceftriaxone Sodium 1 gm/ (Sodium Chloride) 100 mls @ 200 mls/hr IV Q24H [facility] Last Admin: 06/23/17 12:12 Dose: 200 mls/hr Insulin Aspart (Novolog) 0 unit SUBCUT QIDACANDBED [facility] PRN Reason: Protocol Last Admin: 06/24/17 09:09 Dose: 4 units Magnesium Oxide (Magnesium Oxide) 400 mg PO BID [facility] Last Admin: 06/24/17 09:11 Dose: 400 mg Metoprolol Succinate (Toprol Xl) 50 mg PO DAILY [facility] Last Admin: 06/24/17 09:49 Dose: 50 mg Miscellaneous Information (Remove Patch) 1 ea TRDERM Q72H [facility] Last Admin: 06/23/17 12:17 Dose: 1 ea Morphine Sulfate (Morphine) 2 mg IVPUSH Q6H PRN PRN Reason: Pain Last Admin: 06/21/17 06:16 Dose: 2 mg Nicotine (Habitrol) 7 mg TRDERM DAILY [facility] Last Admin: 06/24/17 09:08 Dose: Not Given Nitroglycerin (Nitrostat) 0.4 mg SL Q5M PRN PRN Reason: Chest Pain Ptom - Brimonidine 0 (.15% Ophth Soln) 1 each EYEBOTH BID [facility] Last Admin: 06/24/17 09:11 Dose: 1 each Ptom - Refresh (Optive Ophth Soln) 0 each EYEBOTH BID [facility] Last Admin: 06/24/17 09:11 Dose: 1 each Ptom - Roflumilast (500mg (Daliresp)) 1 each PO DAILY [facility] Last Admin: 06/24/17 09:11 Dose: 1 each Saxagliptin Hydrochloride (Onglyza) 5 mg PO DAILY [facility] Last Admin: 06/24/17 09:11 Dose: 5 mg Simvastatin (Zocor) 40 mg PO BEDTIME [facility] Last Admin: 06/23/17 21:19 Dose: 40 mg Sodium Chloride (Saline Flush) 10 ml FLUSH ASDIRECTED PRN PRN Reason: Keep Vein Open Last Admin: 06/19/17 12:39 Dose: 10 ml Temazepam (Restoril) 15 mg PO BEDTIME PRN PRN Reason: Insomnia Last Admin: 06/24/17 00:02 Dose: 15 mg Tramadol HCl (Ultram) 50 mg PO Q6H PRN PRN Reason: Pain Last Admin: 06/22/17 23:08 Dose: 50 mg Discontinued Medications Albuterol/Ipratropium (Duoneb 3.0-0.5 Mg/3 Ml) ml INH Q6H [facility] Albuterol/Ipratropium (Duoneb 3.0-0.5 Mg/3 Ml) 3 ml INH Q6H [facility] Last Admin: 06/20/17 11:27 Dose: 3 ml Budesonide (Pulmicort) 0.25 mg NEB BIDRT [facility] Last Admin: 06/22/17 09:29 Dose: 0.25 mg Budesonide (Pulmicort) 0.25 mg NEB BID [facility] Budesonide (Pulmicort) 0.5 mg NEB BIDRT [facility] Last Admin: 06/23/17 08:20 Dose: 0.5 mg Fentanyl (Duragesic) 12 mcg TRDERM Q72H [facility] Last Admin: 06/19/17 18:04 Dose: 12 mcg Fentanyl (Duragesic) 25 mcg TRDERM Q72H [facility] Last Admin: 06/20/17 10:59 Dose: 25 mcg Furosemide (Lasix) 40 mg IVPUSH NOW ONE Stop: 06/19/17 11:31 Last Admin: 06/19/17 11:44 Dose: 40 mg Furosemide (Lasix) 40 mg IVPUSH NOW ONE Stop: 06/20/17 08:01 Last Admin: 06/20/17 08:22 Dose: 40 mg Furosemide (Lasix) 40 mg IVPUSH NOW ONE Stop: 06/21/17 10:11 Last Admin: 06/21/17 10:50 Dose: 40 mg Furosemide (Lasix) 40 mg IVPUSH NOW ONE Stop: 06/23/17 19:35 Last Admin: 06/23/17 20:24 Dose: Not Given Furosemide (Lasix) 20 mg IVPUSH ONETIME ONE Stop: 06/24/17 08:01 Glipizide (Glucotrol) 10 mg PO DAILY@0630 [facility] Hydromorphone HCl (Dilaudid) 0.25 mg IVPUSH ONETIME ONE Stop: 06/19/17 11:20 Last Admin: 06/19/17 15:40 Dose: Not Given Hydromorphone HCl (Dilaudid) 0.5 mg IVPUSH ONETIME ONE Stop: 06/19/17 11:21 Last Admin: 06/19/17 15:41 Dose: Not Given Levofloxacin/Dextrose 750 mg/ (Premix) 150 mls @ 100 mls/hr IV ONETIME ONE Stop: 06/19/17 16:06 Last Admin: 06/19/17 15:34 Dose: 100 mls/hr Magnesium Sulfate 2 gm/ Premix 50 mls @ 25 mls/hr IV ONETIME ONE Stop: 06/19/17 20:07 Last Admin: 06/19/17 21:29 Dose: 25 mls/hr Magnesium Sulfate 2 gm/ Premix 50 mls @ 25 mls/hr IV ONETIME ONE Stop: 06/20/17 11:34 Last Admin: 06/20/17 10:16 Dose: 25 mls/hr Magnesium Sulfate 2 gm/ Premix 50 mls @ 25 mls/hr IV ONETIME ONE Stop: 06/21/17 11:59 Last Admin: 06/21/17 10:48 Dose: 25 mls/hr Sodium Chloride (Normal Saline) 1,000 mls @ 100 mls/hr IV ASDIRECTED MARGOT Stop: 06/23/17 00:29 Last Admin: 06/21/17 14:53 Dose: 100 mls/hr Sodium Chloride (Normal Saline) 1,000 mls @ 75 mls/hr IV ASDIRECTED [facility]ARGOT Sodium Chloride (Normal Saline) 1,000 mls @ 50 mls/hr IV ASDIRECTED [facility] Last Admin: 06/22/17 15:26 Dose: 50 mls/hr Insulin Aspart (Novolog) 0 unit SUBCUT QIDACANDBED [facility] PRN Reason: Protocol Last Admin: 06/21/17 09:07 Dose: 1 unit Insulin Detemir (Levemir) 10 unit SUBCUT BID [facility] Last Admin: 06/20/17 11:37 Dose: Not Given Ketorolac Tromethamine (Toradol) 30 mg IVPUSH Q6H [facility] Stop: 06/22/17 03:31 Last Admin: 06/22/17 03:28 Dose: 30 mg Levofloxacin (Levaquin) 750 mg PO Q24H [facility] Last Admin: 06/20/17 11:37 Dose: Not Given Magnesium Hydroxide (Milk Of Magnesia) 30 ml PO ONETIME ONE Stop: 06/22/17 17:31 Last Admin: 06/22/17 17:55 Dose: 30 ml Magnesium Hydroxide (Milk Of Magnesia) 30 ml PO ONETIME ONE Stop: 06/23/17 21:01 Metformin HCl (Glucophage) 1,000 mg PO BIDMEALS [facility] Last Admin: 06/21/17 06:49 Dose: 1,000 mg Metoprolol Succinate (Toprol Xl) 50 mg PO DAILY [facility] Mometasone Furoate/Formoterol Fumar (Dulera 200-5 Mcg) 2 puff IH BID [facility] Last Admin: 06/21/17 08:24 Dose: 2 puff Morphine Sulfate (Morphine) 1 mg IVPUSH Q8H PRN PRN Reason: Pain Last Admin: 06/19/17 18:04 Dose: 1 mg Morphine Sulfate (Morphine) 2 mg IVPUSH ONETIME ONE Stop: 06/20/17 10:31 Last Admin: 06/20/17 10:43 Dose: 2 mg Nicotine (Habitrol) 21 mg TRDERM DAILY [facility] Ondansetron HCl (Zofran) 4 mg IVPUSH ONETIME ONE Stop: 06/19/17 11:20 Last Admin: 06/19/17 12:39 Dose: Not Given Oral Electrolytes (Thermotabs) 2 each PO TID [facility] Last Admin: 06/22/17 23:08 Dose: 2 each Ptom - Glipizide (10mg Tablet) 1 each PO DAILY@0630 [facility] Last Admin: 06/20/17 11:38 Dose: Not Given Ptom - Metformin (500mg Tablet) 2 each PO BIDMEALS [facility] Last Admin: 06/20/17 11:38 Dose: Not Given Ptom: Metoprolol Succinate 50mg Tablet 1 each PO DAILY [facility] Last Admin: 06/20/17 11:38 Dose: Not Given Ptom: Simvastatin (40mg Tablet) 1 each PO BEDTIME [facility] Last Admin: 06/20/17 10:04 Dose: Not Given Ptom - Sitagliptin ( (Januvia) 100mg) 1 each PO DAILY [facility] Last Admin: 06/20/17 10:50 Dose: 1 each Tramadol HCl (Ultram) 50 mg PO ONETIME ONE Stop: 06/19/17 15:09 Last Admin: 06/19/17 15:12 Dose: 50 mg - Exam Quality Assessment: DVT Prophylaxis General: Alert, Oriented, Cooperative, No Acute Distress HEENT: Pupils Equal, Pupils Reactive, EOMI Neck: Supple, Trachea Midline, No JVD Lungs: Normal Respiratory Effort, Decreased Breath Sounds Cardiovascular: Regular Rate, Regular Rhythm GI/Abdominal Exam: Normal Bowel Sounds, Soft, Non-Tender, No Organomegaly, No Distention (Male) Exam: Deferred Back Exam: Normal Inspection Extremities: Normal Inspection Skin: Warm Neurological: No New Focal Deficit Psy/Mental Status: Alert - Problem List & Annotations (1) Back pain of thoracolumbar region SNOMED Code(s): 248957204 Code(s): M54.5 - LOW BACK PAIN Status: Acute Current Visit: Yes (2) COLD, Chronic obstructive lung disease SNOMED Code(s): 05461059 Code(s): J44.9 - CHRONIC OBSTRUCTIVE PULMONARY DISEASE, UNSPECIFIED Status : Acute Priority: High Current Visit: Yes (3) Dehydration SNOMED Code(s): 87726365 Code(s): E86.0 - DEHYDRATION Status: Acute Current Visit: No (4) Pneumonia SNOMED Code(s): 742498574 Code(s): J18.9 - PNEUMONIA, UNSPECIFIED ORGANISM Status: Acute Priority: High Current Visit: Yes Qualifiers: Pneumonia type: due to unspecified organism Laterality: left Lung location: lower lobe of lung Qualified Code(s): J18.1 - Lobar pneumonia, unspecified organism - Problem List Review Problem List Initiated/Reviewed/Updated: Yes - My Orders Last 24 Hours: My Active Orders 06/23/17 21:00 Budesonide [Pulmicort] 0.5 mg NEB BID - Plan Plan:: Impression: CAP- organism unspecified at this time -Repeat CXR on 06/21/17 with worsening of probable pneumonia despite clinically appears non-toxic -WBC and CRP trending down -Add Rocephin to Levaquin IV -Cont with Neb tx, RT, IS/FV -Mycoplasma and strep pneumonia negative; influenza screening and respiratory viral panel both negative -Recent CAP treated with zosyn, History of LLL lung abscess Back pain with degenerative changes thoracolumbar spine; no compression fractures are noted on CT of thoracic and lumbar spines--back pain improved today -poor pain control---is improved today -Sciatica -Pain management- Fentanyl patch increased to 25mcg yesterday- discontinue -PO tramadol and PRN Morphine Acute right leg pain--as of last night--? sciatica relating to acute on chronic LBP but back pain itself is improved today--exam of leg is unremarkable -Will obtain xrays of rt hip and knee--->popliteal cyst -Labs: uric acid, esr, rheumatoid factor -Venous doppler to r/o DVT- negative -Consider Orthopedic consult Query CHF, mild bilateral pulmonary congestion. -? vascular congestion on CXR -BNP 1062-->1067 - repeat tomorrow -IV lasix with caution as he has been hypotensive -Has hx of CHF -Consider echo if not done in last 6 months; will check records. Depression -Psych consult- attempted today but patient was still confused. Reattempt -Sun downing Resolved: Electrolyte abnormalities: hypokalemia/hypomagnesemia -Replete and recheck- follow daily labs Chronic DM type 2- A1C- Novolog SSI/Accuchecks AC/HS---avoid steroids if possible as last admission blood sugars skyrocketed with steroid use. -Hold metformin due to IV toradol use, avoid kidney injury, cover with SSI-- increase to medium dosing protocol History of CAD/CABG HLD--cholesterol levels WNL/acceptable- cont home meds HTN- stable- cont home meds HF Hx COPD BPH Hx AVR- on coumadin- INR 1.52 today Other: Home meds CHF education TSH WNL PT/OT consults SW consult for SNF for rehab stay---Plans for SNF at [facility], possible discharge Monday pending progress and ongoing evaluation as above. Daily labs DVT/GI prophylaxis Patient is Full Code status PCP is Dr. Coyle with [facility] in [place] LOS> 96hr due to slow response to treatment, difficulty obtaining pain management, pending SNF placement.
[2017-06-24] MEDS: cefTRIAXone 1 GM in Sodium Chloride 0.9% 100 ML IV SCH (13:30)
[2017-06-24] MEDS: guaiFENesin 600 MG Tab.ER PO PRN (13:31)
[2017-06-24] MEDS: Tamsulosin 0.4 MG Cap.ER PO SCH ×2 (13:31→17:40)
[2017-06-24] MEDS: Levofloxacin/Dextrose 5%-Water 750 MG in Premix Bag 1 BAG IV SCH (17:40)
[2017-06-24] MEDS: Simvastatin 40 MG Tab PO SCH (21:07)
[2017-06-25] MEDS: Albuterol/Ipratropium 3.0-0.5 MG/3 ML Neb Soln INH SCH ×4 (02:51→20:15)
[2017-06-25] MEDS: traMADol 50 MG Tab PO PRN (04:10)
[2017-06-25] MEDS: Insulin Aspart 100 Units/ML 3 ML Pen SUBCUT SCH ×4 (07:42→23:16)
[2017-06-25] MEDS: Budesonide 0.5 MG/2 ML Neb Susp NEB SCH ×2 (08:28→20:15)
[2017-06-25] MEDS: Aspirin 81 MG Tab.Chew PO SCH (08:45)
[2017-06-25] MEDS: Nicotine 7 MG/24 Hr Patch TRDERM SCH (08:46)
[2017-06-25] MEDS: Saxagliptin 5 MG Tab PO SCH (08:46)
[2017-06-25] MEDS: Tamsulosin 0.4 MG Cap.ER PO SCH ×2 (08:47→18:24)
[2017-06-25] MEDS: Magnesium Oxide 400 MG Tab PO SCH ×2 (08:47→21:43)
[2017-06-25] MEDS: Famotidine 20 MG Tab PO SCH ×2 (08:49→21:43)
[2017-06-25] MEDS: Metoprolol Succinate 50 MG Tab.ER PO SCH (08:50)
[2017-06-25] MEDS: ROFLUMILAST 500 MG PO SCH (08:51)
[2017-06-25] MEDS: BRIMONIDINE 0.15% EYEBOTH SCH ×2 (08:52→21:46)
[2017-06-25] MEDS: REFRESH OPTIVE EYEBOTH SCH ×2 (08:52→21:46)
[2017-06-25] MEDS: Enoxaparin 40 MG/0.4 ML Syringe SUBCUT SCH (08:55)
--- NOTE | 2017-06-25 13:22 | PCM.PN ---
- General Info Functional Status: Reports: Pain Controlled, Tolerating Diet, Ambulating - Review of Systems General: Reports: Weakness, Fatigue HEENT: Reports: No Symptoms Pulmonary: Reports: Shortness of Breath Cardiovascular: Reports: No Symptoms Gastrointestinal: Reports: No Symptoms Genitourinary: Reports: No Symptoms Musculoskeletal: Reports: No Symptoms Skin: Reports: No Symptoms Neurological: Reports: No Symptoms Psychiatric: Reports: No Symptoms, Confusion, Depression - Patient Data Vitals - Most Recent: Last Vital Signs Temp 36.7 C 06/25/17 08:30 Pulse 57 L 06/25/17 08:50 Resp 20 06/25/17 08:30 BP 105/58 L 06/25/17 08:50 Pulse Ox 90 L 06/25/17 08:30 Weight - Most Recent: 72.847 kg I&O - Last 24 Hours: Intake & Output 06/24/17 06/25/17 06/25/17 22:59 06:59 14:59 Intake Total 1050 200 300 Output Total 850 1150 Balance 200 -950 300 Lab Results Last 24 Hours: Laboratory Results - last 24 hr 06/24/17 06/24/17 06/25/17 Range/Units 17:09 21:09 05:56 WBC 10.74 H (4.23-9.07) K/mm3 RBC 3.18 L (4.63-6.08) M/mm3 Hgb 9.5 L (13.7-17.5) gm/L Hct 30.6 L (40.1-51.0) % MCV 96.2 H (79.0-92.2) fl MCH 29.9 (25.7-32.2) pg MCHC 31.0 L (32.2-35.5) g/dl RDW Std Deviation 48.0 H (35.1-43.9) fL Plt Count 265 (163-337) K/mm3 MPV 9.8 (9.4-12.3) fl Neut % (Auto) 76.1 H (34.0-67.9) % Lymph % (Auto) 10.5 L (21.8-53.1) % [place] % (Auto) 11.2 (5.3-12.2) % Eos % (Auto) 1.4 (0.8-7.0) Baso % (Auto) 0.2 (0.1-1.2) % Neut # (Auto) 8.18 H (1.78-5.38) K/mm3 Lymph # (Auto) 1.13 L (1.32-3.57) K/mm3 [place] # (Auto) 1.20 H (0.30-0.82) K/mm3 Eos # (Auto) 0.15 (0.04-0.54) K/mm3 Baso # (Auto) 0.02 (0.01-0.08) K/mm3 Sodium (136-145) mEq/L Potassium (3.5-5.1) mEq/L Chloride (98-107) mEq/L Carbon Dioxide (21-32) mEq/L Anion Gap (5-15) BUN (7-18) mg/dL Creatinine (0.7-1.3) mg/dL Est Cr Clr Drug Dosing mL/min Estimated GFR (MDRD) (>60) mL/min BUN/Creatinine Ratio (14-18) Glucose (83-115) mg/dL POC Glucose 292 H 352 H (83-110) mg/dL Calcium (8.5-10.1) mg/dL Magnesium (1.8-2.4) mg/dl C-Reactive Protein (<1.0) mg/dL 06/25/17 06/25/17 06/25/17 Range/Units 05:56 06:33 11:16 WBC (4.23-9.07) K/mm3 RBC (4.63-6.08) M/mm3 Hgb (13.7-17.5) gm/L Hct (40.1-51.0) % MCV (79.0-92.2) fl MCH (25.7-32.2) pg MCHC (32.2-35.5) g/dl RDW Std Deviation (35.1-43.9) fL Plt Count (163-337) K/mm3 MPV (9.4-12.3) fl Neut % (Auto) (34.0-67.9) % Lymph % (Auto) (21.8-53.1) % [place] % (Auto) (5.3-12.2) % Eos % (Auto) (0.8-7.0) Baso % (Auto) (0.1-1.2) % Neut # (Auto) (1.78-5.38) K/mm3 Lymph # (Auto) (1.32-3.57) K/mm3 [place] # (Auto) (0.30-0.82) K/mm3 Eos # (Auto) (0.04-0.54) K/mm3 Baso # (Auto) (0.01-0.08) K/mm3 Sodium 133 L (136-145) mEq/L Potassium 4.9 (3.5-5.1) mEq/L Chloride 98 (98-107) mEq/L Carbon Dioxide 31 (21-32) mEq/L Anion Gap 8.9 (5-15) BUN 18 (7-18) mg/dL Creatinine 1.2 (0.7-1.3) mg/dL Est Cr Clr Drug Dosing 45.53 mL/min Estimated GFR (MDRD) 57 (>60) mL/min BUN/Creatinine Ratio 15.0 (14-18) Glucose 210 H (83-115) mg/dL POC Glucose 220 H 381 H (83-110) mg/dL Calcium 9.1 (8.5-10.1) mg/dL Magnesium 1.5 L (1.8-2.4) mg/dl C-Reactive Protein 15.5 H* (<1.0) mg/dL Med Orders - Current: Current Medications Albuterol (Proventil Neb Soln) 2.5 mg NEB Q4HR PRN PRN Reason: Shortness of Breath Albuterol/Ipratropium (Duoneb 3.0-0.5 Mg/3 Ml) 3 ml INH QIDRT [facility] Aspirin (Aspirin) 81 mg PO DAILY [facility] Last Admin: 06/25/17 08:45 Dose: 81 mg Budesonide (Pulmicort) 0.5 mg NEB BID [facility] Last Admin: 06/25/17 08:28 Dose: 0.5 mg Enoxaparin Sodium (Lovenox) 40 mg SUBCUT DAILY [facility] Last Admin: 06/25/17 08:55 Dose: 40 mg Famotidine (Pepcid) 20 mg PO BID [facility] Last Admin: 06/25/17 08:49 Dose: 20 mg Glipizide (Glucotrol) 10 mg PO DAILY@0630 [facility] Last Admin: 06/25/17 06:37 Dose: 10 mg Guaifenesin (Mucinex) 1,200 mg PO Q12HR PRN PRN Reason: Congestion Last Admin: 06/24/17 13:31 Dose: 1,200 mg Hydralazine HCl (Apresoline) 10 mg IVPUSH Q4H PRN PRN Reason: sb/p >150 Levofloxacin/Dextrose 750 mg/ (Premix) 150 mls @ 100 mls/hr IV Q24H [facility] Last Admin: 06/24/17 17:40 Dose: 100 mls/hr Ceftriaxone Sodium 1 gm/ (Sodium Chloride) 100 mls @ 200 mls/hr IV Q24H [facility] Last Admin: 06/24/17 13:30 Dose: 200 mls/hr Magnesium Sulfate 4 gm/ Premix 100 mls @ 50 mls/hr IV ONETIME ONE Stop: 06/25/17 15:59 Insulin Aspart (Novolog) 0 unit SUBCUT QIDACANDBED [facility] PRN Reason: Protocol Last Admin: 06/25/17 11:19 Dose: 10 units Magnesium Oxide (Magnesium Oxide) 400 mg PO BID [facility] Last Admin: 06/25/17 08:47 Dose: 400 mg Metoprolol Succinate (Toprol Xl) 50 mg PO DAILY [facility] Last Admin: 06/25/17 08:50 Dose: 50 mg Miscellaneous Information (Remove Patch) 1 ea TRDERM Q72H [facility] Last Admin: 06/23/17 12:17 Dose: 1 ea Morphine Sulfate (Morphine) 2 mg IVPUSH Q6H PRN PRN Reason: Pain Last Admin: 06/21/17 06:16 Dose: 2 mg Nicotine (Habitrol) 7 mg TRDERM DAILY [facility] Last Admin: 06/25/17 08:46 Dose: Not Given Nitroglycerin (Nitrostat) 0.4 mg SL Q5M PRN PRN Reason: Chest Pain Ptom - Brimonidine 0 (.15% Ophth Soln) 1 each EYEBOTH BID [facility] Last Admin: 06/25/17 08:52 Dose: 1 each Ptom - Refresh (Optive Ophth Soln) 0 each EYEBOTH BID [facility] Last Admin: 06/25/17 08:52 Dose: 1 each Ptom - Roflumilast (500mg (Daliresp)) 1 each PO DAILY [facility] Last Admin: 06/25/17 08:51 Dose: 1 each Saxagliptin Hydrochloride (Onglyza) 5 mg PO DAILY [facility] Last Admin: 06/25/17 08:46 Dose: 5 mg Simvastatin (Zocor) 40 mg PO BEDTIME [facility] Last Admin: 06/24/17 21:07 Dose: 40 mg Sodium Chloride (Saline Flush) 10 ml FLUSH ASDIRECTED PRN PRN Reason: Keep Vein Open Last Admin: 06/19/17 12:39 Dose: 10 ml Tamsulosin HCl (Flomax) 0.4 mg PO BIDPC [facility] Last Admin: 06/25/17 08:47 Dose: 0.4 mg Temazepam (Restoril) 15 mg PO BEDTIME PRN PRN Reason: Insomnia Last Admin: 06/24/17 21:10 Dose: 15 mg Tramadol HCl (Ultram) 50 mg PO Q6H PRN PRN Reason: Pain Last Admin: 06/25/17 04:10 Dose: 50 mg Discontinued Medications Albuterol/Ipratropium (Duoneb 3.0-0.5 Mg/3 Ml) ml INH Q6H [facility] Albuterol/Ipratropium (Duoneb 3.0-0.5 Mg/3 Ml) 3 ml INH Q6H [facility] Last Admin: 06/20/17 11:27 Dose: 3 ml Albuterol/Ipratropium (Duoneb 3.0-0.5 Mg/3 Ml) 3 ml INH Q6H [facility] Last Admin: 06/25/17 08:28 Dose: 3 ml Budesonide (Pulmicort) 0.25 mg NEB BIDRT [facility] Last Admin: 06/22/17 09:29 Dose: 0.25 mg Budesonide (Pulmicort) 0.25 mg NEB BID [facility] Budesonide (Pulmicort) 0.5 mg NEB BIDRT [facility] Last Admin: 06/23/17 08:20 Dose: 0.5 mg Fentanyl (Duragesic) 12 mcg TRDERM Q72H [facility] Last Admin: 06/19/17 18:04 Dose: 12 mcg Fentanyl (Duragesic) 25 mcg TRDERM Q72H [facility] Last Admin: 06/20/17 10:59 Dose: 25 mcg Furosemide (Lasix) 40 mg IVPUSH NOW ONE Stop: 06/19/17 11:31 Last Admin: 06/19/17 11:44 Dose: 40 mg Furosemide (Lasix) 40 mg IVPUSH NOW ONE Stop: 06/20/17 08:01 Last Admin: 06/20/17 08:22 Dose: 40 mg Furosemide (Lasix) 40 mg IVPUSH NOW ONE Stop: 06/21/17 10:11 Last Admin: 06/21/17 10:50 Dose: 40 mg Furosemide (Lasix) 40 mg IVPUSH NOW ONE Stop: 06/23/17 19:35 Last Admin: 06/23/17 20:24 Dose: Not Given Furosemide (Lasix) 20 mg IVPUSH ONETIME ONE Stop: 06/24/17 08:01 Glipizide (Glucotrol) 10 mg PO DAILY@0630 [facility] Hydromorphone HCl (Dilaudid) 0.25 mg IVPUSH ONETIME ONE Stop: 06/19/17 11:20 Last Admin: 06/19/17 15:40 Dose: Not Given Hydromorphone HCl (Dilaudid) 0.5 mg IVPUSH ONETIME ONE Stop: 06/19/17 11:21 Last Admin: 06/19/17 15:41 Dose: Not Given Levofloxacin/Dextrose 750 mg/ (Premix) 150 mls @ 100 mls/hr IV ONETIME ONE Stop: 06/19/17 16:06 Last Admin: 06/19/17 15:34 Dose: 100 mls/hr Magnesium Sulfate 2 gm/ Premix 50 mls @ 25 mls/hr IV ONETIME ONE Stop: 06/19/17 20:07 Last Admin: 06/19/17 21:29 Dose: 25 mls/hr Magnesium Sulfate 2 gm/ Premix 50 mls @ 25 mls/hr IV ONETIME ONE Stop: 06/20/17 11:34 Last Admin: 06/20/17 10:16 Dose: 25 mls/hr Magnesium Sulfate 2 gm/ Premix 50 mls @ 25 mls/hr IV ONETIME ONE Stop: 06/21/17 11:59 Last Admin: 06/21/17 10:48 Dose: 25 mls/hr Sodium Chloride (Normal Saline) 1,000 mls @ 100 mls/hr IV ASDIRECTED [facility] Stop: 06/23/17 00:29 Last Admin: 06/21/17 14:53 Dose: 100 mls/hr Sodium Chloride (Normal Saline) 1,000 mls @ 75 mls/hr IV ASDIRECTED [facility] Sodium Chloride (Normal Saline) 1,000 mls @ 50 mls/hr IV ASDIRECTED [facility] Last Admin: 06/22/17 15:26 Dose: 50 mls/hr Insulin Aspart (Novolog) 0 unit SUBCUT QIDACANDBED [facility] PRN Reason: Protocol Last Admin: 06/21/17 09:07 Dose: 1 unit Insulin Detemir (Levemir) 10 unit SUBCUT BID [facility] Last Admin: 06/20/17 11:37 Dose: Not Given Ketorolac Tromethamine (Toradol) 30 mg IVPUSH Q6H [facility] Stop: 06/22/17 03:31 Last Admin: 06/22/17 03:28 Dose: 30 mg Levofloxacin (Levaquin) 750 mg PO Q24H [facility] Last Admin: 06/20/17 11:37 Dose: Not Given Magnesium Hydroxide (Milk Of Magnesia) 30 ml PO ONETIME ONE Stop: 06/22/17 17:31 Last Admin: 06/22/17 17:55 Dose: 30 ml Magnesium Hydroxide (Milk Of Magnesia) 30 ml PO ONETIME ONE Stop: 06/23/17 21:01 Metformin HCl (Glucophage) 1,000 mg PO BIDMEALS [facility] Last Admin: 06/21/17 06:49 Dose: 1,000 mg Metoprolol Succinate (Toprol Xl) 50 mg PO DAILY [facility] Mometasone Furoate/Formoterol Fumar (Dulera 200-5 Mcg) 2 puff IH BID [facility] Last Admin: 06/21/17 08:24 Dose: 2 puff Morphine Sulfate (Morphine) 1 mg IVPUSH Q8H PRN PRN Reason: Pain Last Admin: 06/19/17 18:04 Dose: 1 mg Morphine Sulfate (Morphine) 2 mg IVPUSH ONETIME ONE Stop: 06/20/17 10:31 Last Admin: 06/20/17 10:43 Dose: 2 mg Nicotine (Habitrol) 21 mg TRDERM DAILY [facility] Ondansetron HCl (Zofran) 4 mg IVPUSH ONETIME ONE Stop: 06/19/17 11:20 Last Admin: 06/19/17 12:39 Dose: Not Given Oral Electrolytes (Thermotabs) 2 each PO TID [facility] Last Admin: 06/22/17 23:08 Dose: 2 each Ptom - Glipizide (10mg Tablet) 1 each PO DAILY@0630 [facility] Last Admin: 06/20/17 11:38 Dose: Not Given Ptom - Metformin (500mg Tablet) 2 each PO BIDMEALS [facility] Last Admin: 06/20/17 11:38 Dose: Not Given Ptom: Metoprolol Succinate 50mg Tablet 1 each PO DAILY [facility] Last Admin: 06/20/17 11:38 Dose: Not Given Ptom: Simvastatin (40mg Tablet) 1 each PO BEDTIME [facility] Last Admin: 06/20/17 10:04 Dose: Not Given Ptom - Sitagliptin ( (Januvia) 100mg) 1 each PO DAILY [facility] Last Admin: 06/20/17 10:50 Dose: 1 each Tramadol HCl (Ultram) 50 mg PO ONETIME ONE Stop: 06/19/17 15:09 Last Admin: 06/19/17 15:12 Dose: 50 mg - Exam Quality Assessment: Supplemental Oxygen, DVT Prophylaxis General: Alert, Oriented, Cooperative HEENT: Pupils Equal, Pupils Reactive, EOMI Neck: Trachea Midline, No JVD Lungs: Normal Respiratory Effort Cardiovascular: Regular Rate, Regular Rhythm GI/Abdominal Exam: Normal Bowel Sounds, Soft, Non-Tender, No Organomegaly, No Distention (Male) Exam: Deferred Back Exam: Normal Inspection Extremities: Normal Inspection, Normal Range of Motion, Non-Tender, No Pedal Edema Skin: Warm, Dry, Intact Neurological: No New Focal Deficit Psy/Mental Status: Alert, Depressed - Problem List & Annotations (1) Back pain of thoracolumbar region SNOMED Code(s): 454575643 Code(s): M54.5 - LOW BACK PAIN Status: Acute Current Visit: Yes (2) COLD, Chronic obstructive lung disease SNOMED Code(s): 54881646 Code(s): J44.9 - CHRONIC OBSTRUCTIVE PULMONARY DISEASE, UNSPECIFIED Status : Acute Priority: High Current Visit: Yes (3) Dehydration SNOMED Code(s): 34646312 Code(s): E86.0 - DEHYDRATION Status: Acute Current Visit: No (4) Pneumonia SNOMED Code(s): 826314229 Code(s): J18.9 - PNEUMONIA, UNSPECIFIED ORGANISM Status: Acute Priority: High Current Visit: Yes Qualifiers: Pneumonia type: due to unspecified organism Laterality: left Lung location: lower lobe of lung Qualified Code(s): J18.1 - Lobar pneumonia, unspecified organism - Problem List Review Problem List Initiated/Reviewed/Updated: Yes - My Orders Last 24 Hours: My Active Orders 06/24/17 13:00 Tamsulosin [Flomax] 0.4 mg PO BIDPC 06/25/17 14:00 Magnesium Sulfate/Water [Magnesium Sulfate 4 GM in Water 100 ML] 4 gm Premix Bag 1 bag IV ONETIME 06/25/17 16:00 Albuterol/Ipratropium [DuoNeb 3.0-0.5 MG/3 ML] 3 ml INH QIDRT - Plan Plan:: Impression: CAP- organism unspecified at this time -Repeat CXR on 06/21/17 with worsening of probable pneumonia despite clinically appears non-toxic -WBC and CRP trending down -Add Rocephin to Levaquin IV -Cont with Neb tx, RT, IS/FV -Mycoplasma and strep pneumonia negative; influenza screening and respiratory viral panel both negative -Recent CAP treated with zosyn, History of LLL lung abscess; empiric coverage as written, encourage pulmonary toilet. Back pain with degenerative changes thoracolumbar spine; no compression fractures are noted on CT of thoracic and lumbar spines--back pain improved today -poor pain control---is improved today -Sciatica -Pain management- Fentanyl patch increased to 25mcg yesterday- discontinued -PO tramadol and PRN Morphine Acute right leg pain--as of last night--? sciatica relating to acute on chronic LBP but back pain itself is improved today--exam of leg is unremarkable -Will obtain xrays of rt hip and knee--->popliteal cyst -Labs: uric acid, esr, rheumatoid factor -Venous doppler to r/o DVT- negative -Consider Orthopedic consult Query CHF, mild bilateral pulmonary congestion. -? vascular congestion on CXR -BNP 1062-->1067 - repeat tomorrow -IV lasix with caution as he has been hypotensive -Has hx of CHF -Consider echo if not done in last 6 months; will check records. Depression -Psych consult- attempted today but patient was still confused. Reattempt -Sun downing Resolved: Electrolyte abnormalities: hypokalemia/hypomagnesemia -Replete and recheck- follow daily labs Chronic DM type 2- A1C- Novolog SSI/Accuchecks AC/HS---avoid steroids if possible as last admission blood sugars skyrocketed with steroid use. -Hold metformin due to IV toradol use, avoid kidney injury, cover with SSI-- increase to medium dosing protocol History of CAD/CABG HLD--cholesterol levels WNL/acceptable- cont home meds HTN- stable- cont home meds HF Hx COPD BPH Hx AVR- on coumadin- INR 1.52 today Other: Home meds CHF education TSH WNL PT/OT consults SW consult for SNF for rehab stay---Plans for SNF at [facility], possible discharge Monday pending progress and ongoing evaluation as above. Daily labs DVT/GI prophylaxis Patient is Full Code status PCP is Dr. Coyle with [facility] in [place] LOS> 96hr due to slow response to treatment, difficulty obtaining pain management, pending SNF placement.
[2017-06-25] MEDS: cefTRIAXone 1 GM in Sodium Chloride 0.9% 100 ML IV SCH (13:54)
[2017-06-25] MEDS ORDERED: Magnesium Sulfate/Water 4 GM in Premix Bag 1 BAG IV ONE (14:00)
[2017-06-25] MEDS: Magnesium Sulfate/Water 2 GM in Premix Bag 1 BAG IV SCH ×2 (14:32→15:25)
[2017-06-25] MEDS: Levofloxacin/Dextrose 5%-Water 750 MG in Premix Bag 1 BAG IV SCH (18:27)
[2017-06-25] MEDS: Simvastatin 40 MG Tab PO SCH (21:43)
[2017-06-25] MEDS: Temazepam 15 MG Cap PO PRN (21:43)
[2017-06-26] MEDS ORDERED: Bisacodyl 10 MG Supp RECTAL ONE (03:31)
[2017-06-26] MEDS: Albuterol/Ipratropium 3.0-0.5 MG/3 ML Neb Soln INH SCH ×4 (06:36→20:24)
[2017-06-26] MEDS: Insulin Aspart 100 Units/ML 3 ML Pen SUBCUT SCH ×4 (07:42→22:24)
[2017-06-26] MEDS: Budesonide 0.5 MG/2 ML Neb Susp NEB SCH ×2 (09:14→20:24)
[2017-06-26] MEDS: Aspirin 81 MG Tab.Chew PO SCH (09:41)
[2017-06-26] MEDS: Famotidine 20 MG Tab PO SCH ×2 (09:42→21:06)
[2017-06-26] MEDS: Tamsulosin 0.4 MG Cap.ER PO SCH ×2 (09:42→18:08)
[2017-06-26] MEDS: Metoprolol Succinate 50 MG Tab.ER PO SCH (09:42)
[2017-06-26] MEDS: Enoxaparin 40 MG/0.4 ML Syringe SUBCUT SCH (09:43)
[2017-06-26] MEDS: Magnesium Oxide 400 MG Tab PO SCH ×2 (09:43→21:06)
[2017-06-26] MEDS: REFRESH OPTIVE EYEBOTH SCH ×2 (09:45→21:06)
[2017-06-26] MEDS: Nicotine 7 MG/24 Hr Patch TRDERM SCH (09:45)
[2017-06-26] MEDS: BRIMONIDINE 0.15% EYEBOTH SCH ×2 (09:46→21:06)
[2017-06-26] MEDS: ROFLUMILAST 500 MG PO SCH (09:46)
[2017-06-26] MEDS ORDERED: Temazepam 30 MG Cap PO PRN (10:43)
--- NOTE | 2017-06-26 10:58 | CR ---
Chest: Two views of the chest were obtained. Comparison: Prior chest x-ray of 06/21/17. Diffuse increased lung markings are seen on both sides of the chest. Findings are fairly stable to prior exam. Heart size is not enlarged. Sternotomy wires are seen. Diaphragms are flattened on the lateral view compatible with emphysematous change. Degenerative spurring is noted within the spine. Impression: 1. Findings felt to be fairly stable from prior chest x-ray. No appreciable change is seen from recent chest x-ray. Diagnostic code #3
[2017-06-26] MEDS ORDERED: QUEtiapine 25 MG Tab PO SCH (11:00)
--- NOTE | 2017-06-26 11:36 | PCM.PN ---
- General Info Date of Service: 06/26/17 Subjective Update: Complained of constipation, finally was able to have a bowel movement. He tires quickly and is deconditioned. Functional Status: Reports: Tolerating Diet - Review of Systems General: Reports: Weakness, Fatigue HEENT: Reports: No Symptoms Pulmonary: Reports: Shortness of Breath Cardiovascular: Reports: No Symptoms Gastrointestinal: Reports: No Symptoms Genitourinary: Reports: No Symptoms Musculoskeletal: Reports: No Symptoms Skin: Reports: No Symptoms Neurological: Reports: No Symptoms Psychiatric: Reports: No Symptoms - Patient Data Vitals - Most Recent: Last Vital Signs Temp 36.6 C 06/26/17 07:53 Pulse 125 H 06/26/17 09:42 Resp 20 06/26/17 07:53 BP 112/95 H 06/26/17 09:43 Pulse Ox 97 06/26/17 09:14 Weight - Most Recent: 73.028 kg I&O - Last 24 Hours: Intake & Output 06/25/17 06/26/17 06/26/17 22:59 06:59 14:59 Intake Total 840 450 240 Output Total 1050 950 Balance -210 -500 240 Lab Results Last 24 Hours: Laboratory Results - last 24 hr 06/25/17 06/25/17 06/26/17 Range/Units 17:31 21:45 06:00 WBC 10.67 H (4.23-9.07) K/mm3 RBC 3.48 L (4.63-6.08) M/mm3 Hgb 10.5 L (13.7-17.5) gm/L Hct 33.1 L (40.1-51.0) % MCV 95.1 H (79.0-92.2) fl MCH 30.2 (25.7-32.2) pg MCHC 31.7 L (32.2-35.5) g/dl RDW Std Deviation 47.2 H (35.1-43.9) fL Plt Count 289 (163-337) K/mm3 MPV 9.8 (9.4-12.3) fl Neut % (Auto) 75.8 H (34.0-67.9) % Lymph % (Auto) 10.4 L (21.8-53.1) % Otero % (Auto) 11.6 (5.3-12.2) % Eos % (Auto) 1.3 (0.8-7.0) Baso % (Auto) 0.2 (0.1-1.2) % Neut # (Auto) 8.09 H (1.78-5.38) K/mm3 Lymph # (Auto) 1.11 L (1.32-3.57) K/mm3 Otero # (Auto) 1.24 H (0.30-0.82) K/mm3 Eos # (Auto) 0.14 (0.04-0.54) K/mm3 Baso # (Auto) 0.02 (0.01-0.08) K/mm3 Sodium (136-145) mEq/L Potassium (3.5-5.1) mEq/L Chloride (98-107) mEq/L Carbon Dioxide (21-32) mEq/L Anion Gap (5-15) BUN (7-18) mg/dL Creatinine (0.7-1.3) mg/dL Est Cr Clr Drug Dosing mL/min Estimated GFR (MDRD) (>60) mL/min BUN/Creatinine Ratio (14-18) Glucose 346 H (83-115) mg/dL POC Glucose 289 H (83-110) mg/dL Calcium (8.5-10.1) mg/dL Magnesium (1.8-2.4) mg/dl C-Reactive Protein (<1.0) mg/dL 06/26/17 06/26/17 Range/Units 06:00 06:09 WBC (4.23-9.07) K/mm3 RBC (4.63-6.08) M/mm3 Hgb (13.7-17.5) gm/L Hct (40.1-51.0) % MCV (79.0-92.2) fl MCH (25.7-32.2) pg MCHC (32.2-35.5) g/dl RDW Std Deviation (35.1-43.9) fL Plt Count (163-337) K/mm3 MPV (9.4-12.3) fl Neut % (Auto) (34.0-67.9) % Lymph % (Auto) (21.8-53.1) % Otero % (Auto) (5.3-12.2) % Eos % (Auto) (0.8-7.0) Baso % (Auto) (0.1-1.2) % Neut # (Auto) (1.78-5.38) K/mm3 Lymph # (Auto) (1.32-3.57) K/mm3 Otero # (Auto) (0.30-0.82) K/mm3 Eos # (Auto) (0.04-0.54) K/mm3 Baso # (Auto) (0.01-0.08) K/mm3 Sodium 133 L (136-145) mEq/L Potassium 4.9 (3.5-5.1) mEq/L Chloride 96 L (98-107) mEq/L Carbon Dioxide 30 (21-32) mEq/L Anion Gap 11.9 (5-15) BUN 19 H (7-18) mg/dL Creatinine 1.1 (0.7-1.3) mg/dL Est Cr Clr Drug Dosing 49.79 mL/min Estimated GFR (MDRD) > 60 (>60) mL/min BUN/Creatinine Ratio 17.3 (14-18) Glucose 189 H (83-115) mg/dL POC Glucose 219 H (83-110) mg/dL Calcium 9.4 (8.5-10.1) mg/dL Magnesium 1.9 (1.8-2.4) mg/dl C-Reactive Protein 11.0 H* (<1.0) mg/dL Med Orders - Current: Current Medications Albuterol (Proventil Neb Soln) 2.5 mg NEB Q4HR PRN PRN Reason: Shortness of Breath Albuterol/Ipratropium (Duoneb 3.0-0.5 Mg/3 Ml) 3 ml INH QIDRT [facility] Last Admin: 06/26/17 09:14 Dose: 3 ml Aspirin (Aspirin) 81 mg PO DAILY [facility] Last Admin: 06/26/17 09:41 Dose: 81 mg Budesonide (Pulmicort) 0.5 mg NEB BID [facility] Last Admin: 06/26/17 09:14 Dose: 0.5 mg Enoxaparin Sodium (Lovenox) 40 mg SUBCUT DAILY [facility] Last Admin: 06/26/17 09:43 Dose: 40 mg Famotidine (Pepcid) 20 mg PO BID [facility] Last Admin: 06/26/17 09:42 Dose: 20 mg Glipizide (Glucotrol) 10 mg PO DAILY@0630 [facility] Last Admin: 06/26/17 06:11 Dose: 10 mg Guaifenesin (Mucinex) 1,200 mg PO Q12HR PRN PRN Reason: Congestion Last Admin: 06/24/17 13:31 Dose: 1,200 mg Hydralazine HCl (Apresoline) 10 mg IVPUSH Q4H PRN PRN Reason: sb/p >150 Levofloxacin/Dextrose 750 mg/ (Premix) 150 mls @ 100 mls/hr IV Q24H [facility] Last Admin: 06/25/17 18:27 Dose: 100 mls/hr Ceftriaxone Sodium 1 gm/ (Sodium Chloride) 100 mls @ 200 mls/hr IV Q24H [facility] Last Admin: 06/25/17 13:54 Dose: 200 mls/hr Insulin Aspart (Novolog) 0 unit SUBCUT QIDACANDBED [facility] PRN Reason: Protocol Last Admin: 06/26/17 07:42 Dose: 4 units Magnesium Oxide (Magnesium Oxide) 400 mg PO BID [facility] Last Admin: 06/26/17 09:43 Dose: 400 mg Metoprolol Succinate (Toprol Xl) 50 mg PO DAILY [facility] Last Admin: 06/26/17 09:42 Dose: 50 mg Miscellaneous Information (Remove Patch) 1 ea TRDERM Q72H [facility] Last Admin: 06/23/17 12:17 Dose: 1 ea Morphine Sulfate (Morphine) 2 mg IVPUSH Q6H PRN PRN Reason: Pain Last Admin: 06/21/17 06:16 Dose: 2 mg Nicotine (Habitrol) 7 mg TRDERM DAILY [facility] Last Admin: 06/26/17 09:45 Dose: Not Given Nitroglycerin (Nitrostat) 0.4 mg SL Q5M PRN PRN Reason: Chest Pain Ptom - Brimonidine 0 (.15% Ophth Soln) 1 each EYEBOTH BID [facility] Last Admin: 06/26/17 09:46 Dose: 1 each Ptom - Refresh (Optive Ophth Soln) 0 each EYEBOTH BID [facility] Last Admin: 06/26/17 09:45 Dose: 1 each Ptom - Roflumilast (500mg (Daliresp)) 1 each PO DAILY [facility] Last Admin: 06/26/17 09:46 Dose: 1 each Quetiapine Fumarate (Seroquel) 25 mg PO DAILY [facility] Simvastatin (Zocor) 40 mg PO BEDTIME [facility] Last Admin: 06/25/17 21:43 Dose: 40 mg Sodium Chloride (Saline Flush) 10 ml FLUSH ASDIRECTED PRN PRN Reason: Keep Vein Open Last Admin: 06/19/17 12:39 Dose: 10 ml Tamsulosin HCl (Flomax) 0.4 mg PO BIDPC [facility] Last Admin: 06/26/17 09:42 Dose: 0.4 mg Temazepam (Restoril) 30 mg PO BEDTIME PRN PRN Reason: Insomnia Tramadol HCl (Ultram) 50 mg PO Q6H PRN PRN Reason: Pain Last Admin: 06/25/17 04:10 Dose: 50 mg Discontinued Medications Albuterol/Ipratropium (Duoneb 3.0-0.5 Mg/3 Ml) ml INH Q6H [facility] Albuterol/Ipratropium (Duoneb 3.0-0.5 Mg/3 Ml) 3 ml INH Q6H [facility] Last Admin: 06/20/17 11:27 Dose: 3 ml Albuterol/Ipratropium (Duoneb 3.0-0.5 Mg/3 Ml) 3 ml INH Q6H [facility] Last Admin: 06/25/17 08:28 Dose: 3 ml Bisacodyl (Dulcolax) 10 mg RECTAL ONETIME ONE Stop: 06/26/17 03:32 Last Admin: 06/26/17 03:57 Dose: 10 mg Budesonide (Pulmicort) 0.25 mg NEB BIDRT [facility] Last Admin: 06/22/17 09:29 Dose: 0.25 mg Budesonide (Pulmicort) 0.25 mg NEB BID [facility] Budesonide (Pulmicort) 0.5 mg NEB BIDRT [facility] Last Admin: 06/23/17 08:20 Dose: 0.5 mg Fentanyl (Duragesic) 12 mcg TRDERM Q72H [facility] Last Admin: 06/19/17 18:04 Dose: 12 mcg Fentanyl (Duragesic) 25 mcg TRDERM Q72H [facility] Last Admin: 06/20/17 10:59 Dose: 25 mcg Furosemide (Lasix) 40 mg IVPUSH NOW ONE Stop: 06/19/17 11:31 Last Admin: 06/19/17 11:44 Dose: 40 mg Furosemide (Lasix) 40 mg IVPUSH NOW ONE Stop: 06/20/17 08:01 Last Admin: 06/20/17 08:22 Dose: 40 mg Furosemide (Lasix) 40 mg IVPUSH NOW ONE Stop: 06/21/17 10:11 Last Admin: 06/21/17 10:50 Dose: 40 mg Furosemide (Lasix) 40 mg IVPUSH NOW ONE Stop: 06/23/17 19:35 Last Admin: 06/23/17 20:24 Dose: Not Given Furosemide (Lasix) 20 mg IVPUSH ONETIME ONE Stop: 06/24/17 08:01 Glipizide (Glucotrol) 10 mg PO DAILY@0630 [facility] Hydromorphone HCl (Dilaudid) 0.25 mg IVPUSH ONETIME ONE Stop: 06/19/17 11:20 Last Admin: 06/19/17 15:40 Dose: Not Given Hydromorphone HCl (Dilaudid) 0.5 mg IVPUSH ONETIME ONE Stop: 06/19/17 11:21 Last Admin: 06/19/17 15:41 Dose: Not Given Levofloxacin/Dextrose 750 mg/ (Premix) 150 mls @ 100 mls/hr IV ONETIME ONE Stop: 06/19/17 16:06 Last Admin: 06/19/17 15:34 Dose: 100 mls/hr Magnesium Sulfate 2 gm/ Premix 50 mls @ 25 mls/hr IV ONETIME ONE Stop: 06/19/17 20:07 Last Admin: 06/19/17 21:29 Dose: 25 mls/hr Magnesium Sulfate 2 gm/ Premix 50 mls @ 25 mls/hr IV ONETIME ONE Stop: 06/20/17 11:34 Last Admin: 06/20/17 10:16 Dose: 25 mls/hr Magnesium Sulfate 2 gm/ Premix 50 mls @ 25 mls/hr IV ONETIME ONE Stop: 06/21/17 11:59 Last Admin: 06/21/17 10:48 Dose: 25 mls/hr Sodium Chloride (Normal Saline) 1,000 mls @ 100 mls/hr IV ASDIRECTED [facility] Stop: 06/23/17 00:29 Last Admin: 06/21/17 14:53 Dose: 100 mls/hr Sodium Chloride (Normal Saline) 1,000 mls @ 75 mls/hr IV ASDIRECTED [facility] Sodium Chloride (Normal Saline) 1,000 mls @ 50 mls/hr IV ASDIRECTED [facility] Last Admin: 06/22/17 15:26 Dose: 50 mls/hr Magnesium Sulfate 4 gm/ Premix 100 mls @ 50 mls/hr IV ONETIME ONE Stop: 06/25/17 15:59 Magnesium Sulfate 2 gm/ Premix 50 mls @ 50 mls/hr IV Q1H [facility] Stop: 06/25/17 15:59 Last Admin: 06/25/17 15:25 Dose: 50 mls/hr Insulin Aspart (Novolog) 0 unit SUBCUT QIDACANDBED [facility] PRN Reason: Protocol Last Admin: 06/21/17 09:07 Dose: 1 unit Insulin Detemir (Levemir) 10 unit SUBCUT BID [facility] Last Admin: 06/20/17 11:37 Dose: Not Given Ketorolac Tromethamine (Toradol) 30 mg IVPUSH Q6H [facility] Stop: 06/22/17 03:31 Last Admin: 06/22/17 03:28 Dose: 30 mg Levofloxacin (Levaquin) 750 mg PO Q24H [facility] Last Admin: 06/20/17 11:37 Dose: Not Given Magnesium Hydroxide (Milk Of Magnesia) 30 ml PO ONETIME ONE Stop: 06/22/17 17:31 Last Admin: 06/22/17 17:55 Dose: 30 ml Magnesium Hydroxide (Milk Of Magnesia) 30 ml PO ONETIME ONE Stop: 06/23/17 21:01 Metformin HCl (Glucophage) 1,000 mg PO BIDMEALS [facility] Last Admin: 06/21/17 06:49 Dose: 1,000 mg Metoprolol Succinate (Toprol Xl) 50 mg PO DAILY [facility] Mometasone Furoate/Formoterol Fumar (Dulera 200-5 Mcg) 2 puff IH BID [facility] Last Admin: 06/21/17 08:24 Dose: 2 puff Morphine Sulfate (Morphine) 1 mg IVPUSH Q8H PRN PRN Reason: Pain Last Admin: 06/19/17 18:04 Dose: 1 mg Morphine Sulfate (Morphine) 2 mg IVPUSH ONETIME ONE Stop: 06/20/17 10:31 Last Admin: 06/20/17 10:43 Dose: 2 mg Nicotine (Habitrol) 21 mg TRDERM DAILY [facility] Ondansetron HCl (Zofran) 4 mg IVPUSH ONETIME ONE Stop: 06/19/17 11:20 Last Admin: 06/19/17 12:39 Dose: Not Given Oral Electrolytes (Thermotabs) 2 each PO TID [facility] Last Admin: 06/22/17 23:08 Dose: 2 each Ptom - Glipizide (10mg Tablet) 1 each PO DAILY@0630 [facility] Last Admin: 06/20/17 11:38 Dose: Not Given Ptom - Metformin (500mg Tablet) 2 each PO BIDMEALS [facility] Last Admin: 06/20/17 11:38 Dose: Not Given Ptom: Metoprolol Succinate 50mg Tablet 1 each PO DAILY [facility] Last Admin: 06/20/17 11:38 Dose: Not Given Ptom: Simvastatin (40mg Tablet) 1 each PO BEDTIME [facility] Last Admin: 06/20/17 10:04 Dose: Not Given Ptom - Sitagliptin ( (Januvia) 100mg) 1 each PO DAILY [facility] Last Admin: 06/20/17 10:50 Dose: 1 each Saxagliptin Hydrochloride (Onglyza) 5 mg PO DAILY [facility] Last Admin: 06/25/17 08:46 Dose: 5 mg Temazepam (Restoril) 15 mg PO BEDTIME PRN PRN Reason: Insomnia Last Admin: 06/25/17 21:43 Dose: 15 mg Tramadol HCl (Ultram) 50 mg PO ONETIME ONE Stop: 06/19/17 15:09 Last Admin: 06/19/17 15:12 Dose: 50 mg - Exam Quality Assessment: Supplemental Oxygen, DVT Prophylaxis General: Alert, Oriented, Cooperative, No Acute Distress HEENT: Pupils Equal, Pupils Reactive Neck: Trachea Midline, No JVD Lungs: Normal Respiratory Effort Cardiovascular: Regular Rate, Tachycardia GI/Abdominal Exam: Normal Bowel Sounds, Soft, Non-Tender, No Organomegaly, No Distention (Male) Exam: Deferred Back Exam: Normal Inspection Extremities: Normal Inspection Skin: Warm Neurological: No New Focal Deficit Psy/Mental Status: Alert - Problem List & Annotations (1) Back pain of thoracolumbar region SNOMED Code(s): 993774834 Code(s): M54.5 - LOW BACK PAIN Status: Acute Current Visit: Yes (2) COLD, Chronic obstructive lung disease SNOMED Code(s): 45827447 Code(s): J44.9 - CHRONIC OBSTRUCTIVE PULMONARY DISEASE, UNSPECIFIED Status : Acute Priority: High Current Visit: Yes (3) Dehydration SNOMED Code(s): 68661360 Code(s): E86.0 - DEHYDRATION Status: Acute Current Visit: No (4) Pneumonia SNOMED Code(s): 785912469 Code(s): J18.9 - PNEUMONIA, UNSPECIFIED ORGANISM Status: Acute Priority: High Current Visit: Yes Qualifiers: Pneumonia type: due to unspecified organism Laterality: left Lung location: lower lobe of lung Qualified Code(s): J18.1 - Lobar pneumonia, unspecified organism - Problem List Review Problem List Initiated/Reviewed/Updated: Yes - My Orders Last 24 Hours: My Active Orders 06/25/17 16:00 Albuterol/Ipratropium [DuoNeb 3.0-0.5 MG/3 ML] 3 ml INH QIDRT 06/26/17 10:30 Alogliptin Benzoate [Alogliptin] 25 mg PO DAILY 06/26/17 10:43 Temazepam [Restoril] 30 mg PO BEDTIME PRN 06/26/17 11:00 QUEtiapine [SEROquel] 25 mg PO DAILY - Plan Plan:: Impression: CAP- organism unspecified at this time -Repeat CXR on 06/21/17 with worsening of probable pneumonia despite clinically appears non-toxic -WBC and CRP trending down -Add Rocephin to Levaquin IV -Cont with Neb tx, RT, IS/FV -Mycoplasma and strep pneumonia negative; influenza screening and respiratory viral panel both negative -Recent CAP treated with zosyn, History of LLL lung abscess; empiric coverage as written, encourage pulmonary toilet. Back pain with degenerative changes thoracolumbar spine; no compression fractures are noted on CT of thoracic and lumbar spines--back pain improved today -poor pain control---is improved today -Sciatica -Pain management- Fentanyl patch increased to 25mcg yesterday- discontinued -PO tramadol and PRN Morphine Acute right leg pain--as of last night--? sciatica relating to acute on chronic LBP but back pain itself is improved today--exam of leg is unremarkable -Will obtain xrays of rt hip and knee--->popliteal cyst -Labs: uric acid, esr, rheumatoid factor -Venous doppler to r/o DVT- negative -Consider Orthopedic consult Query CHF, mild bilateral pulmonary congestion. -? vascular congestion on CXR -BNP 1062-->1067 - repeat tomorrow -IV lasix with caution as he has been hypotensive -Has hx of CHF -Consider echo if not done in last 6 months; will check records. Depression -Psych consult- attempted today but patient was still confused. Reattempt -Sun downing Resolved: Electrolyte abnormalities: hypokalemia/hypomagnesemia -Replete and recheck- follow daily labs Chronic DM type 2- A1C- Novolog SSI/Accuchecks AC/HS---avoid steroids if possible as last admission blood sugars skyrocketed with steroid use. -Hold metformin due to IV toradol use, avoid kidney injury, cover with SSI-- increase to medium dosing protocol History of CAD/CABG HLD--cholesterol levels WNL/acceptable- cont home meds HTN- stable- cont home meds HF Hx COPD BPH Hx AVR- on coumadin- INR 1.52 today Other: Home meds CHF education TSH WNL PT/OT consults SW consult for SNF for rehab stay---Plans for SNF at [facility], possible discharge Monday pending progress and ongoing evaluation as above. Daily labs DVT/GI prophylaxis Patient is Full Code status PCP is Dr. Coyle with [facility] in [place] LOS> 96hr due to slow response to treatment, difficulty obtaining pain management, pending SNF placement.
[2017-06-26] MEDS: cefTRIAXone 1 GM in Sodium Chloride 0.9% 100 ML IV SCH (12:01)
[2017-06-26] MEDS: Remove Patch*FENTANYL TRDERM SCH (14:30)
[2017-06-26] MEDS: Levofloxacin/Dextrose 5%-Water 750 MG in Premix Bag 1 BAG IV SCH (18:08)
[2017-06-26] MEDS: Saxagliptin 5 MG Tab PO SCH (20:56)
[2017-06-26] MEDS: Simvastatin 40 MG Tab PO SCH (21:06)
[2017-06-27] MEDS: Albuterol/Ipratropium 3.0-0.5 MG/3 ML Neb Soln INH SCH ×2 (06:40→10:12)
[2017-06-27] MEDS: Insulin Aspart 100 Units/ML 3 ML Pen SUBCUT SCH ×4 (07:00→22:04)
[2017-06-27] MEDS: Tamsulosin 0.4 MG Cap.ER PO SCH ×2 (08:43→17:54)
[2017-06-27] MEDS: Magnesium Oxide 400 MG Tab PO SCH ×2 (08:43→20:52)
[2017-06-27] MEDS: Aspirin 81 MG Tab.Chew PO SCH (08:45)
[2017-06-27] MEDS: Famotidine 20 MG Tab PO SCH ×2 (08:45→20:50)
[2017-06-27] MEDS: Nicotine 7 MG/24 Hr Patch TRDERM SCH (08:46)
[2017-06-27] MEDS: Metoprolol Succinate 50 MG Tab.ER PO SCH (08:46)
[2017-06-27] MEDS: Enoxaparin 40 MG/0.4 ML Syringe SUBCUT SCH (08:46)
[2017-06-27] MEDS: ROFLUMILAST 500 MG PO SCH (08:47)
[2017-06-27] MEDS: REFRESH OPTIVE EYEBOTH SCH ×2 (08:48→20:57)
[2017-06-27] MEDS: BRIMONIDINE 0.15% EYEBOTH SCH ×2 (08:48→20:57)
[2017-06-27] MEDS ORDERED: guaiFENesin/Dextromethorphan 100-10 MG/5 ML Soln 5 ML Cup PO PRN (13:41)
[2017-06-27] MEDS ORDERED: Azithromycin 250 MG Tab PO ONE (13:42)
[2017-06-27] MEDS: Azithromycin 250 MG Tab PO SCH (15:01)
[2017-06-27] MEDS: guaiFENesin/Dextromethorphan 100-10 MG/5 ML Soln 5 ML Cup PO SCH ×2 (15:01→20:04)
[2017-06-27] MEDS ORDERED: Levalbuterol HCl 0.63 MG/3 ML Neb NEB PRN (16:08)
[2017-06-27] MEDS ORDERED: Albuterol 0.021% 0.63 MG/3 ML Neb Soln NEB PRN (16:13)
[2017-06-27] MEDS ORDERED: Metoprolol Tartrate 5 MG/5 ML SDV IVPUSH PRN (18:09)
--- NOTE | 2017-06-27 19:46 | CONS ---
CONSULTING PHYSICIAN: Cristobal Knowles MD DATE OF CONSULTATION: 06/26/2017 This is a 60-minute inpatient psychiatric consultation. IDENTIFICATION: The patient is an 87-year-old male who is admitted to the inpatient medical unit at [facility] in [place], [place]. He is seen for psychiatric consultation. Also, present and actively participating in the interview is the patient's son, Quincy, and daughter, Melonie, respectively. CHIEF COMPLAINT: "He had a rough night. It started with pneumonia." HISTORY OF PRESENT ILLNESS: The patient is an 87-year-old male who was admitted on 06/19/2017 to the Med/Surg Unit at [facility] in [place], [place], after he had become increasingly bothered by a back pain and was also struggling with symptoms of pneumonia. The patient had become increasingly confused and disoriented. He had been diagnosed with pneumonia "the day before Thanksgi" according to his children. The patient's son also notes that the patient's " in 2015." The patient has been in the hospital now for about a week. When he was in the hospital, he was started with a fentanyl patch to help with the back pain and while his back pain got better, the patient became increasingly confused. The fentanyl patch was discontinued on June 22 and since that time, they do feel that his confusion may have gotten a little less. On consultation, the patient is only able to answer to his name and is not oriented to place or time. The patient was also started on Seroquel 25 mg q.a.m. with the first dose given in the early afternoon of the . Plan is for the patient to go to [place] for physical therapy once he is medically stabilized, and treatment team is reporting that they have concerns that the patient has been sundowning. MEDICATIONS: At the time of presentation for psychiatric: Seroquel 25 mg every afternoon which the first dose being given in the early afternoon on June 26, 2017. ALLERGIES: 1. Dilaudid. 2. Penicillin. 3. IV dye. PAST MEDICAL HISTORY: 1. Status post coronary artery bypass. 2. History of arthritis. 3. History of pneumonia. 4. History of type 1 diabetes. REVIEW OF SYSTEMS: Aside from cardiovascular, musculoskeletal, pulmonary, and endocrine, all other major organ systems are negative at this point in time for acute difficulties or complications. FAMILY PSYCHIATRIC AND CD HISTORY: Negative per the patient's children's report. PAST PSYCHIATRIC AND CD HISTORY: The patient's family denies. SOCIAL HISTORY: The patient was born in [place], [place]; raised in [place], [place]. 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 His in 2016, and the patient had been residing at [facility] for the past few months. MENTAL STATUS EXAM: The patient is an 87-year-old, tired-appearing white male, in no apparent distress. Speech is of increased latency of response, shortened duration of utterance. Psychomotor activity is within normal limits. There are no abnormal motor movements or tics observed. Gait and station are not observed. This patient is lying in bed during the inpatient consult. The patient is only alert and oriented to himself. Mood is tired. Affect is consistent with stated mood, but cooperative as can be for the purposes of the inpatient consult. There is no behavioral or stated evidence of acute suicidal or homicidal ideation or acute psychotic, delusional, or paranoid symptoms. Thought processes appear confused. Judgment and insight appear somewhat impaired, secondary to the patient's confusion. Motivation for help appears poor to fair. VITALS: 103/69, 81, 18, 97.2 degrees. IMPRESSION: Sidney I: Depression, not otherwise specified, F32.9. Sidney II: None. Sidney III: 1. Status post coronary artery bypass. 2. History of arthritis. 3. History of pneumonia. 4. Type 2 diabetes. Sidney IV: Severe. Sidney V: 55. PLAN: 1. Recommend discontinue Seroquel as this may be contributing to the patient's sedation and confusion at least for the time being until the patient is medically stabilized. 2. We would consider an antidepressant medication going forward such as Prozac 10 mg if needed again when the patient is medically stabilized and less confused. 3. We would also recommend a neurologic workup if this has not already been done and ideology of the patient's confusion is still unknown. 4. Other medications as prescribed and managed by the patient's primary inpatient medical treatment team. 5. We will continue follow up with the patient on an as-needed basis while the patient remains on the inpatient medical unit. 6. We will follow up with the patient sooner if there are any complications in the interim. 7. Crisis plan is in place. CHELSEA /[id number]
[2017-06-27] MEDS: Levalbuterol HCl 0.63 MG/3 ML Neb NEB SCH (20:18)
[2017-06-27] MEDS: Benzonatate 100 MG Cap PO SCH (20:51)
[2017-06-27] MEDS: QUEtiapine 25 MG Tab PO SCH (20:53)
[2017-06-27] MEDS: Simvastatin 40 MG Tab PO SCH (21:01)
--- NOTE | 2017-06-28 00:33 | PCM.PN ---
- General Info Date of Service: 06/27/17 Admission Dx/Problem (Free Text): Admission Diagnosis/Problem Admission Diagnosis/Problem Pneumonia Subjective Update: Follow Up Functional Status: Reports: Pain Controlled, Tolerating Diet, Urinating - Review of Systems General: Reports: Weakness. Denies: Fever, Chills HEENT: Reports: No Symptoms Pulmonary: Reports: Cough. Denies: Shortness of Breath Cardiovascular: Denies: Chest Pain, Palpitations, Dyspnea on Exertion, Edema, Lightheadedness Gastrointestinal: Denies: Abdominal Pain, Nausea, Vomiting Genitourinary: Reports: No Symptoms Musculoskeletal: Reports: No Symptoms Skin: Denies: Cyanosis, Mottled, Pallor, Diaphoresis, Pruritis Neurological: Reports: Weakness. Denies: Confusion, Difficulty Walking, Gait Disturbance Psychiatric: Denies: Depression, Anxiety, Agitation, Hallucinations Systems Review Comment:: No significant overnight issues. He feels weak but he feels a little better. He still has lingering productive cough. He did not sleep well last night. He also reports shakes/tremors after breathing treatment. - Patient Data Vitals - Most Recent: Last Vital Signs Temp 36.6 C 06/27/17 15:49 Pulse 120 H 06/27/17 18:41 Resp 18 06/27/17 15:49 BP 111/63 06/27/17 18:41 Pulse Ox 94 L 06/27/17 20:18 Weight - Most Recent: 70.851 kg I&O - Last 24 Hours: Intake & Output 06/27/17 06/27/17 06/28/17 14:59 22:59 06:59 Intake Total 120 690 Output Total 200 Balance 120 490 Lab Results Last 24 Hours: Laboratory Results - last 24 hr 06/27/17 06/27/17 06/27/17 Range/Units 06:02 06:02 06:19 WBC 10.62 H (4.23-9.07) K/mm3 RBC 3.72 L (4.63-6.08) M/mm3 Hgb 11.2 L (13.7-17.5) gm/L Hct 35.6 L (40.1-51.0) % MCV 95.7 H (79.0-92.2) fl MCH 30.1 (25.7-32.2) pg MCHC 31.5 L (32.2-35.5) g/dl RDW Std Deviation 48.4 H (35.1-43.9) fL Plt Count 338 H (163-337) K/mm3 MPV 10.1 (9.4-12.3) fl Neut % (Auto) 74.3 H (34.0-67.9) % Lymph % (Auto) 10.9 L (21.8-53.1) % [place] % (Auto) 13.1 H (5.3-12.2) % Eos % (Auto) 1.1 (0.8-7.0) Baso % (Auto) 0.2 (0.1-1.2) % Neut # (Auto) 7.89 H (1.78-5.38) K/mm3 Lymph # (Auto) 1.16 L (1.32-3.57) K/mm3 [place] # (Auto) 1.39 H (0.30-0.82) K/mm3 Eos # (Auto) 0.12 (0.04-0.54) K/mm3 Baso # (Auto) 0.02 (0.01-0.08) K/mm3 Sodium 134 L (136-145) mEq/L Potassium 4.8 (3.5-5.1) mEq/L Chloride 96 L (98-107) mEq/L Carbon Dioxide 30 (21-32) mEq/L Anion Gap 12.8 (5-15) BUN 18 (7-18) mg/dL Creatinine 1.1 (0.7-1.3) mg/dL Est Cr Clr Drug Dosing 48.31 mL/min Estimated GFR (MDRD) > 60 (>60) mL/min BUN/Creatinine Ratio 16.4 (14-18) Glucose 188 H (83-115) mg/dL POC Glucose 185 H (83-110) mg/dL Calcium 9.5 (8.5-10.1) mg/dL Magnesium 1.6 L (1.8-2.4) mg/dl C-Reactive Protein 12.0 H* (<1.0) mg/dL 06/27/17 06/27/17 06/27/17 Range/Units 11:06 17:33 21:39 WBC (4.23-9.07) K/mm3 RBC (4.63-6.08) M/mm3 Hgb (13.7-17.5) gm/L Hct (40.1-51.0) % MCV (79.0-92.2) fl MCH (25.7-32.2) pg MCHC (32.2-35.5) g/dl RDW Std Deviation (35.1-43.9) fL Plt Count (163-337) K/mm3 MPV (9.4-12.3) fl Neut % (Auto) (34.0-67.9) % Lymph % (Auto) (21.8-53.1) % [place] % (Auto) (5.3-12.2) % Eos % (Auto) (0.8-7.0) Baso % (Auto) (0.1-1.2) % Neut # (Auto) (1.78-5.38) K/mm3 Lymph # (Auto) (1.32-3.57) K/mm3 [place] # (Auto) (0.30-0.82) K/mm3 Eos # (Auto) (0.04-0.54) K/mm3 Baso # (Auto) (0.01-0.08) K/mm3 Sodium (136-145) mEq/L Potassium (3.5-5.1) mEq/L Chloride (98-107) mEq/L Carbon Dioxide (21-32) mEq/L Anion Gap (5-15) BUN (7-18) mg/dL Creatinine (0.7-1.3) mg/dL Est Cr Clr Drug Dosing mL/min Estimated GFR (MDRD) (>60) mL/min BUN/Creatinine Ratio (14-18) Glucose (83-115) mg/dL POC Glucose 342 H 217 H 309 H (83-110) mg/dL Calcium (8.5-10.1) mg/dL Magnesium (1.8-2.4) mg/dl C-Reactive Protein (<1.0) mg/dL Carlos Results Last 24 Hours: Microbiology 06/27/17 16:00 Gram Stain - Final Sputum - Expectorated Sputum Culture - Final 06/27/17 14:00 Gram Stain - Final Sputum - Expectorated Sputum Culture - Final Med Orders - Current: Current Medications Albuterol (Proventil Neb Soln) 0.63 mg NEB Q4HRRT PRN PRN Reason: Shortness of Breath Aspirin (Aspirin) 81 mg PO DAILY [facility] Last Admin: 06/27/17 08:45 Dose: 81 mg Azithromycin (Zithromax) 250 mg PO DAILY [facility] Last Admin: 06/27/17 15:01 Dose: 250 mg Benzonatate (Tessalon Perles) 100 mg PO BID [facility] Last Admin: 06/27/17 20:51 Dose: 100 mg Enoxaparin Sodium (Lovenox) 40 mg SUBCUT DAILY [facility] Last Admin: 06/27/17 08:46 Dose: 40 mg Famotidine (Pepcid) 20 mg PO BID [facility] Last Admin: 06/27/17 20:50 Dose: 20 mg Glipizide (Glucotrol) 10 mg PO DAILY@0630 [facility] Last Admin: 06/27/17 06:55 Dose: 10 mg Guaifenesin/Phenylephrine HCl (Robitussin Dm) 10 ml PO Q6H [facility] Last Admin: 06/27/17 20:04 Dose: 10 ml Hydralazine HCl (Apresoline) 10 mg IVPUSH Q4H PRN PRN Reason: sb/p >150 Insulin Aspart (Novolog) 0 unit SUBCUT QIDACANDBED [facility] PRN Reason: Protocol Last Admin: 06/27/17 22:04 Dose: 8 units Levalbuterol HCl (Xopenex) 0.63 mg NEB Q6HRRT [facility] Last Admin: 06/27/17 20:18 Dose: 0.63 mg Levalbuterol HCl (Xopenex) 0.63 mg NEB Q4HRRT PRN PRN Reason: Shortness of Breath Last Admin: 06/27/17 16:20 Dose: 0.63 mg Magnesium Oxide (Magnesium Oxide) 400 mg PO BID [facility] Last Admin: 06/27/17 20:52 Dose: 400 mg Metoprolol Succinate (Toprol Xl) 50 mg PO DAILY [facility] Last Admin: 06/27/17 08:46 Dose: 50 mg Metoprolol Tartrate (Lopressor) 5 mg IVPUSH Q4H PRN PRN Reason: Tachycardia Last Admin: 06/27/17 18:41 Dose: 5 mg Miscellaneous Information (Remove Patch) 1 ea TRDERM Q72H [facility] Last Admin: 06/26/17 14:30 Dose: Not Given Nicotine (Habitrol) 7 mg TRDERM DAILY [facility] Last Admin: 06/27/17 08:46 Dose: Not Given Nitroglycerin (Nitrostat) 0.4 mg SL Q5M PRN PRN Reason: Chest Pain Ptom - Brimonidine 0 (.15% Ophth Soln) 1 each EYEBOTH BID [facility] Last Admin: 06/27/17 20:57 Dose: 1 each Ptom - Refresh (Optive Ophth Soln) 0 each EYEBOTH BID [facility] Last Admin: 06/27/17 20:57 Dose: 1 each Ptom - Roflumilast (500mg (Daliresp)) 1 each PO DAILY [facility] Last Admin: 06/27/17 08:47 Dose: 1 each Quetiapine Fumarate (Seroquel) 12.5 mg PO BEDTIME [facility] Last Admin: 06/27/17 20:53 Dose: 12.5 mg Simvastatin (Zocor) 40 mg PO BEDTIME [facility] Last Admin: 06/27/17 21:01 Dose: 40 mg Sodium Chloride (Saline Flush) 10 ml FLUSH ASDIRECTED PRN PRN Reason: Keep Vein Open Last Admin: 06/19/17 12:39 Dose: 10 ml Tamsulosin HCl (Flomax) 0.4 mg PO BIDPC [facility] Last Admin: 06/27/17 17:54 Dose: 0.4 mg Tramadol HCl (Ultram) 50 mg PO Q6H PRN PRN Reason: Pain Last Admin: 06/25/17 04:10 Dose: 50 mg Discontinued Medications Albuterol (Proventil Neb Soln) 2.5 mg NEB Q4HR PRN PRN Reason: Shortness of Breath Albuterol/Ipratropium (Duoneb 3.0-0.5 Mg/3 Ml) ml INH Q6H MARGOT Albuterol/Ipratropium (Duoneb 3.0-0.5 Mg/3 Ml) 3 ml INH Q6H [facility] Last Admin: 06/20/17 11:27 Dose: 3 ml Albuterol/Ipratropium (Duoneb 3.0-0.5 Mg/3 Ml) 3 ml INH Q6H [facility] Last Admin: 06/25/17 08:28 Dose: 3 ml Albuterol/Ipratropium (Duoneb 3.0-0.5 Mg/3 Ml) 3 ml INH QIDRT [facility] Last Admin: 06/27/17 10:12 Dose: 3 ml Azithromycin (Zithromax) 250 mg PO ONETIME ONE Stop: 06/27/17 13:43 Last Admin: 06/27/17 15:02 Dose: Not Given Bisacodyl (Dulcolax) 10 mg RECTAL ONETIME ONE Stop: 06/26/17 03:32 Last Admin: 06/26/17 03:57 Dose: 10 mg Budesonide (Pulmicort) 0.25 mg NEB BIDRT [facility] Last Admin: 06/22/17 09:29 Dose: 0.25 mg Budesonide (Pulmicort) 0.25 mg NEB BID [facility] Budesonide (Pulmicort) 0.5 mg NEB BIDRT [facility] Last Admin: 06/23/17 08:20 Dose: 0.5 mg Budesonide (Pulmicort) 0.5 mg NEB BID [facility] Last Admin: 06/26/17 20:24 Dose: 0.5 mg Fentanyl (Duragesic) 12 mcg TRDERM Q72H [facility] Last Admin: 06/19/17 18:04 Dose: 12 mcg Fentanyl (Duragesic) 25 mcg TRDERM Q72H [facility] Last Admin: 06/20/17 10:59 Dose: 25 mcg Furosemide (Lasix) 40 mg IVPUSH NOW ONE Stop: 06/19/17 11:31 Last Admin: 06/19/17 11:44 Dose: 40 mg Furosemide (Lasix) 40 mg IVPUSH NOW ONE Stop: 06/20/17 08:01 Last Admin: 06/20/17 08:22 Dose: 40 mg Furosemide (Lasix) 40 mg IVPUSH NOW ONE Stop: 06/21/17 10:11 Last Admin: 06/21/17 10:50 Dose: 40 mg Furosemide (Lasix) 40 mg IVPUSH NOW ONE Stop: 06/23/17 19:35 Last Admin: 06/23/17 20:24 Dose: Not Given Furosemide (Lasix) 20 mg IVPUSH ONETIME ONE Stop: 06/24/17 08:01 Glipizide (Glucotrol) 10 mg PO DAILY@0630 [facility] Guaifenesin (Mucinex) 1,200 mg PO Q12HR PRN PRN Reason: Congestion Last Admin: 06/24/17 13:31 Dose: 1,200 mg Guaifenesin/Phenylephrine HCl (Robitussin Dm) 10 ml PO Q4H PRN PRN Reason: Cough Hydromorphone HCl (Dilaudid) 0.25 mg IVPUSH ONETIME ONE Stop: 06/19/17 11:20 Last Admin: 06/19/17 15:40 Dose: Not Given Hydromorphone HCl (Dilaudid) 0.5 mg IVPUSH ONETIME ONE Stop: 06/19/17 11:21 Last Admin: 06/19/17 15:41 Dose: Not Given Levofloxacin/Dextrose 750 mg/ (Premix) 150 mls @ 100 mls/hr IV ONETIME ONE Stop: 06/19/17 16:06 Last Admin: 06/19/17 15:34 Dose: 100 mls/hr Magnesium Sulfate 2 gm/ Premix 50 mls @ 25 mls/hr IV ONETIME ONE Stop: 06/19/17 20:07 Last Admin: 06/19/17 21:29 Dose: 25 mls/hr Levofloxacin/Dextrose 750 mg/ (Premix) 150 mls @ 100 mls/hr IV Q24H [facility] Last Admin: 06/26/17 18:08 Dose: 100 mls/hr Magnesium Sulfate 2 gm/ Premix 50 mls @ 25 mls/hr IV ONETIME ONE Stop: 06/20/17 11:34 Last Admin: 06/20/17 10:16 Dose: 25 mls/hr Magnesium Sulfate 2 gm/ Premix 50 mls @ 25 mls/hr IV ONETIME ONE Stop: 06/21/17 11:59 Last Admin: 06/21/17 10:48 Dose: 25 mls/hr Ceftriaxone Sodium 1 gm/ (Sodium Chloride) 100 mls @ 200 mls/hr IV Q24H [facility] Last Admin: 06/26/17 12:01 Dose: 200 mls/hr Sodium Chloride (Normal Saline) 1,000 mls @ 100 mls/hr IV ASDIRECTED [facility] Stop: 06/23/17 00:29 Last Admin: 06/21/17 14:53 Dose: 100 mls/hr Sodium Chloride (Normal Saline) 1,000 mls @ 75 mls/hr IV ASDIRECTED [facility] Sodium Chloride (Normal Saline) 1,000 mls @ 50 mls/hr IV ASDIRECTED [facility] Last Admin: 01/04/18 15:26 Dose: 50 mls/hr Magnesium Sulfate 4 gm/ Premix 100 mls @ 50 mls/hr IV ONETIME ONE Stop: 06/25/17 15:59 Magnesium Sulfate 2 gm/ Premix 50 mls @ 50 mls/hr IV Q1H [facility] Stop: 06/25/17 15:59 Last Admin: 06/25/17 15:25 Dose: 50 mls/hr Insulin Aspart (Novolog) 0 unit SUBCUT QIDACANDBED [facility] PRN Reason: Protocol Last Admin: 06/21/17 09:07 Dose: 1 unit Insulin Detemir (Levemir) 10 unit SUBCUT BID [facility] Last Admin: 06/20/17 11:37 Dose: Not Given Ketorolac Tromethamine (Toradol) 30 mg IVPUSH Q6H [facility] Stop: 06/22/17 03:31 Last Admin: 06/22/17 03:28 Dose: 30 mg Levofloxacin (Levaquin) 750 mg PO Q24H [facility] Last Admin: 06/20/17 11:37 Dose: Not Given Magnesium Hydroxide (Milk Of Magnesia) 30 ml PO ONETIME ONE Stop: 06/22/17 17:31 Last Admin: 06/22/17 17:55 Dose: 30 ml Magnesium Hydroxide (Milk Of Magnesia) 30 ml PO ONETIME ONE Stop: 06/23/17 21:01 Metformin HCl (Glucophage) 1,000 mg PO BIDMEALS [facility] Last Admin: 06/21/17 06:49 Dose: 1,000 mg Metoprolol Succinate (Toprol Xl) 50 mg PO DAILY [facility] Mometasone Furoate/Formoterol Fumar (Dulera 200-5 Mcg) 2 puff IH BID [facility] Last Admin: 06/21/17 08:24 Dose: 2 puff Morphine Sulfate (Morphine) 1 mg IVPUSH Q8H PRN PRN Reason: Pain Last Admin: 06/19/17 18:04 Dose: 1 mg Morphine Sulfate (Morphine) 2 mg IVPUSH ONETIME ONE Stop: 06/20/17 10:31 Last Admin: 06/20/17 10:43 Dose: 2 mg Morphine Sulfate (Morphine) 2 mg IVPUSH Q6H PRN PRN Reason: Pain Last Admin: 06/21/17 06:16 Dose: 2 mg Nicotine (Habitrol) 21 mg TRDERM DAILY [facility] Ondansetron HCl (Zofran) 4 mg IVPUSH ONETIME ONE Stop: 06/19/17 11:20 Last Admin: 06/19/17 12:39 Dose: Not Given Oral Electrolytes (Thermotabs) 2 each PO TID [facility] Last Admin: 06/22/17 23:08 Dose: 2 each Ptom - Glipizide (10mg Tablet) 1 each PO DAILY@0630 [facility] Last Admin: 06/20/17 11:38 Dose: Not Given Ptom - Metformin (500mg Tablet) 2 each PO BIDMEALS [facility] Last Admin: 06/20/17 11:38 Dose: Not Given Ptom: Metoprolol Succinate 50mg Tablet 1 each PO DAILY [facility] Last Admin: 06/20/17 11:38 Dose: Not Given Ptom: Simvastatin (40mg Tablet) 1 each PO BEDTIME [facility] Last Admin: 06/20/17 10:04 Dose: Not Given Ptom - Sitagliptin ( (Januvia) 100mg) 1 each PO DAILY [facility] Last Admin: 06/20/17 10:50 Dose: 1 each Quetiapine Fumarate (Seroquel) 25 mg PO DAILY [facility] Last Admin: 06/26/17 12:00 Dose: 25 mg Saxagliptin Hydrochloride (Onglyza) 5 mg PO DAILY [facility] Last Admin: 06/26/17 20:56 Dose: Not Given Temazepam (Restoril) 15 mg PO BEDTIME PRN PRN Reason: Insomnia Last Admin: 06/25/17 21:43 Dose: 15 mg Temazepam (Restoril) 30 mg PO BEDTIME PRN PRN Reason: Insomnia Tramadol HCl (Ultram) 50 mg PO ONETIME ONE Stop: 06/19/17 15:09 Last Admin: 06/19/17 15:12 Dose: 50 mg - Exam General: Alert, Oriented, Cooperative, No Acute Distress HEENT: Pupils Equal, Pupils Reactive, EOMI, Mucous Membr. Moist/[place] Neck: Supple, Trachea Midline, No JVD, No Thyromegaly Lungs: Normal Respiratory Effort, Decreased Breath Sounds, Rhonchi Cardiovascular: Tachycardia GI/Abdominal Exam: Normal Bowel Sounds, Soft, Non-Tender, No Organomegaly, No Distention, No Abnormal Bruit (Male) Exam: Deferred Back Exam: Normal Inspection, Decreased Range of Motion Extremities: Normal Inspection, Normal Range of Motion, Non-Tender, No Pedal Edema, Normal Capillary Refill Peripheral Pulses: 2+: Dorsalis Pedis (L), Dorsalis Pedis (R) Skin: Warm, Dry, Intact Neurological: No New Focal Deficit Psy/Mental Status: Alert, Normal Affect, Normal Mood - Problem List Review Problem List Initiated/Reviewed/Updated: Yes - My Orders Last 24 Hours: My Active Orders 06/27/17 13:45 Dextromethorphan/guaiFENesin [Robitussin DM] 10 ml PO Q6H 06/27/17 14:00 Azithromycin [Zithromax] 250 mg PO DAILY 06/27/17 16:08 Levalbuterol HCl [Xopenex] 0.63 mg NEB Q4HRRT PRN 06/27/17 16:13 Albuterol [Proventil Neb Soln] 0.63 mg NEB Q4HRRT PRN 06/27/17 18:09 Metoprolol Tartrate [Lopressor] 5 mg IVPUSH Q4H PRN 06/27/17 21:00 Benzonatate [Tessalon Perles] 100 mg PO BID Levalbuterol HCl [Xopenex] 0.63 mg NEB Q6HRRT QUEtiapine [SEROquel] 12.5 mg PO BEDTIME - Plan Plan:: Impression: Acute: CAP -Risk Factors: Emphysema and Diffuse Lung Fibrosis on CT scan -Repeat CXR on 06/21/17 with worsening of probable pneumonia despite clinically appears non-toxic -WBC and CRP trending down -Completed Levaquin IV; start low dose oral azithromycin daily -Cont with Neb tx, RT, IS/FV -Change Mucinex to Robitussin DM Q6 and Start Tessalon Perles 100 mg po TID -Mycoplasma and strep pneumonia negative; influenza screening and respiratory viral panel both negative DM Type 2 -Novolog Medium SSI/Accuchecks AC/HS -Continue Glucotrol 10 mg po Daily -Resume Metformin 1000 mg po BID -Advised to see if PCP agrees with him to switch him on SGTL2 Inhibitors after discharge Sinus Tachycardia with Tremors -Likely 2/2 Albuterol -Will switch to Xopenex -PRN Metoprolol for HR > 110 Depression -Psych consulted; awaiting web press operator report from Dr. 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 -He was started in Seroquel 25 mg po QHS but was stop and switched to Prozac but could not find Prozac in his current Med list -No sundowning in my opinion -Perceived depression or reduced LOC was due to medications side effects ( Narcotics, Restoril and Seroquel) Insomnia -Restart Low dose Seroquel 12.5 mg po QHS -Will not restart Restoril due to respiratory depression -Monitor for intolerance Resolved: Electrolyte abnormalities: hypokalemia/hypomagnesemia -Replete and recheck- follow daily labs S/p Back pain with degenerative changes thoracolumbar spine; no compression fractures are noted on CT of thoracic and lumbar spines--back pain improved today -pain is controlled -Sciatica -Pain management- Fentanyl patch was discontinued due to intolerance -PO tramadol and PRN Morphine S/p Acute right leg pain--as of last night--? sciatica relating to acute on chronic LBP but back pain itself is improved today--exam of leg is unremarkable -Will obtain xrays of rt hip and knee--->popliteal cyst -Labs: uric acid, esr, rheumatoid factor -Venous doppler to r/o DVT- negative -Consider Orthopedic consult S/p Query CHF, mild bilateral pulmonary congestion. -? vascular congestion on CXR -BNP 1062-->1067 - repeat tomorrow -IV lasix with caution as he has been hypotensive -Has hx of CHF -Consider echo if not done in last 6 months; will check records. Chronic History of CAD/CABG HLD--cholesterol levels WNL/acceptable- cont home meds HTN- stable- cont home meds HF Hx COPD BPH Hx AVR- on coumadin- INR 1.52 today Plan: He is clinically stable Continue current treatment with PT/OT SW consult for SNF for rehab stay DVT/GI prophylaxis Encourage to use [facility] as directed Additional orders as above Patient is Full Code status PCP is Dr. Coyle with [facility] in [place] LOS> 96hr due to slow response to treatment and pending SNF placement
[2017-06-28] MEDS: traMADol 50 MG Tab PO PRN (00:35)
[2017-06-28] MEDS: guaiFENesin/Dextromethorphan 100-10 MG/5 ML Soln 5 ML Cup PO SCH ×4 (00:45→18:49)
[2017-06-28] MEDS ORDERED: Metoprolol Tartrate 5 MG/5 ML SDV IVPUSH PRN (01:04)
[2017-06-28] MEDS ORDERED: hydrALAZINE 20 MG/ML SDV IVPUSH PRN (01:04)
[2017-06-28] MEDS ORDERED: Magnesium Sulfate/Water 100 ML IV ONE (01:30)
[2017-06-28] MEDS ORDERED: LORazepam 2 MG/ML SDV IVPUSH ONE ×2 (02:33→20:00)
[2017-06-28] MEDS: Levalbuterol HCl 0.63 MG/3 ML Neb NEB SCH ×4 (03:22→20:54)
[2017-06-28] MEDS: Albuterol/Ipratropium 3.0-0.5 MG/3 ML Neb Soln INH SCH (07:13)
[2017-06-28] MEDS: Insulin Aspart 100 Units/ML 3 ML Pen SUBCUT SCH ×6 (07:13→22:19)
[2017-06-28] MEDS: metFORMIN 500 MG Tab PO SCH ×2 (10:22→18:35)
[2017-06-28] MEDS: Aspirin 81 MG Tab.Chew PO SCH (10:23)
[2017-06-28] MEDS: Magnesium Oxide 400 MG Tab PO SCH ×2 (10:26→20:33)
[2017-06-28] MEDS: Tamsulosin 0.4 MG Cap.ER PO SCH ×2 (10:26→18:35)
[2017-06-28] MEDS: BRIMONIDINE 0.15% EYEBOTH SCH ×2 (10:26→20:36)
[2017-06-28] MEDS: Famotidine 20 MG Tab PO SCH ×2 (10:26→20:34)
[2017-06-28] MEDS: Enoxaparin 40 MG/0.4 ML Syringe SUBCUT SCH (10:26)
[2017-06-28] MEDS: Nicotine 7 MG/24 Hr Patch TRDERM SCH (10:26)
[2017-06-28] MEDS: REFRESH OPTIVE EYEBOTH SCH ×2 (10:27→20:36)
[2017-06-28] MEDS: ROFLUMILAST 500 MG PO SCH (10:27)
[2017-06-28] MEDS: Metoprolol Succinate 50 MG Tab.ER PO SCH (10:27)
[2017-06-28] MEDS: Benzonatate 100 MG Cap PO SCH ×2 (10:27→20:34)
[2017-06-28] MEDS: Azithromycin 250 MG Tab PO SCH (10:27)
--- NOTE | 2017-06-28 13:10 | PCM.PN ---
- General Info Date of Service: 06/28/17 Admission Dx/Problem (Free Text): Admission Diagnosis/Problem Admission Diagnosis/Problem Pneumonia Subjective Update: Follow Up Functional Status: Reports: Pain Controlled, Tolerating Diet, Ambulating, Urinating, New Symptoms (Insomnia) - Review of Systems General: Denies: Fever, Chills HEENT: Reports: No Symptoms Pulmonary: Denies: Shortness of Breath, Cough Cardiovascular: Denies: Chest Pain, Palpitations, Dyspnea on Exertion, Lightheadedness Gastrointestinal: Denies: Abdominal Pain, Nausea, Vomiting Genitourinary: Reports: No Symptoms Musculoskeletal: Reports: No Symptoms Skin: Denies: Cyanosis, Pallor, Diaphoresis Neurological: Reports: Weakness. Denies: Confusion, Difficulty Walking, Gait Disturbance Psychiatric: Denies: Depression, Anxiety, Agitation, Hallucinations Systems Review Comment:: Patient was restless overnight. He did not go to sleep until 3 am this morning. He did however received low dose seroquel for insomnia and low dose ativan for sleep initiation. No other significant issues reported. His vitals are much better. He responded well to Xopenex. He is not cough this morning. No morning labs done this am per daughter's request. - Patient Data Vitals - Most Recent: Last Vital Signs Temp 36.2 C 06/28/17 08:28 Pulse 87 06/28/17 08:28 Resp 20 06/28/17 08:28 BP 96/54 L 06/28/17 08:28 Pulse Ox 93 L 06/28/17 09:14 Weight - Most Recent: 71.849 kg I&O - Last 24 Hours: Intake & Output 06/27/17 06/28/17 06/28/17 22:59 06:59 14:59 Intake Total 690 450 Output Total 200 350 Balance 490 100 Lab Results Last 24 Hours: Laboratory Results - last 24 hr 06/27/17 06/27/17 06/28/17 Range/Units 17:33 21:39 11:59 POC Glucose 217 H 309 H 202 H (83-110) mg/dL Carlos Results Last 24 Hours: Microbiology 06/27/17 14:00 Gram Stain - Final Sputum - Expectorated Sputum Culture - Final 06/27/17 16:00 Gram Stain - Final Sputum - Expectorated Sputum Culture - Final Med Orders - Current: Current Medications Albuterol (Proventil Neb Soln) 0.63 mg NEB Q4HRRT PRN PRN Reason: Shortness of Breath Aspirin (Aspirin) 81 mg PO DAILY [facility] Last Admin: 06/28/17 10:23 Dose: Not Given Azithromycin (Zithromax) 250 mg PO DAILY [facility] Last Admin: 06/28/17 10:27 Dose: Not Given Benzonatate (Tessalon Perles) 100 mg PO BID [facility] Last Admin: 06/28/17 10:27 Dose: Not Given Enoxaparin Sodium (Lovenox) 40 mg SUBCUT DAILY [facility] Last Admin: 06/28/17 10:26 Dose: Not Given Famotidine (Pepcid) 20 mg PO BID [facility] Last Admin: 06/28/17 10:26 Dose: Not Given Glipizide (Glucotrol) 10 mg PO DAILY@0630 [facility] Last Admin: 06/28/17 10:22 Dose: Not Given Guaifenesin/Phenylephrine HCl (Robitussin Dm) 10 ml PO Q6H [facility] Last Admin: 06/28/17 10:22 Dose: Not Given Hydralazine HCl (Apresoline) 10 mg IVPUSH Q4H PRN PRN Reason: Hypertension Insulin Aspart (Novolog) 0 unit SUBCUT QIDACANDBED [facility] PRN Reason: Protocol Last Admin: 06/28/17 10:22 Dose: Not Given Levalbuterol HCl (Xopenex) 0.63 mg NEB Q6HRRT [facility] Last Admin: 06/28/17 09:14 Dose: 0.63 mg Levalbuterol HCl (Xopenex) 0.63 mg NEB Q4HRRT PRN PRN Reason: Shortness of Breath Last Admin: 06/27/17 16:20 Dose: 0.63 mg Magnesium Oxide (Magnesium Oxide) 400 mg PO BID [facility] Last Admin: 06/28/17 10:26 Dose: Not Given Magnesium Sulfate (Pharmacy To Dose - Magnesium Replacement) 0 dose .XX ASDIRECTED PRN PRN Reason: RX TO WATCH MAG LEVELS Metformin HCl (Glucophage) 1,000 mg PO BIDMEALS [facility] Last Admin: 06/28/17 10:22 Dose: Not Given Metoprolol Succinate (Toprol Xl) 50 mg PO DAILY [facility] Last Admin: 06/28/17 10:27 Dose: Not Given Metoprolol Tartrate (Lopressor) 5 mg IVPUSH Q4H PRN PRN Reason: Tachycardia Miscellaneous Information (Remove Patch) 1 ea TRDERM Q72H [facility] Last Admin: 06/26/17 14:30 Dose: Not Given Nicotine (Habitrol) 7 mg TRDERM DAILY [facility] Last Admin: 06/28/17 10:26 Dose: Not Given Nitroglycerin (Nitrostat) 0.4 mg SL Q5M PRN PRN Reason: Chest Pain Ptom - Brimonidine 0 (.15% Ophth Soln) 1 each EYEBOTH BID [facility] Last Admin: 06/28/17 10:26 Dose: Not Given Ptom - Refresh (Optive Ophth Soln) 0 each EYEBOTH BID [facility] Last Admin: 06/28/17 10:27 Dose: Not Given Ptom - Roflumilast (500mg (Daliresp)) 1 each PO DAILY [facility] Last Admin: 06/28/17 10:27 Dose: Not Given Potassium Chloride (Pharmacy To Dose - Potassium Replacement) 0 dose .XX ASDIRECTED PRN PRN Reason: RX TO WATCH K LEVELS Quetiapine Fumarate (Seroquel) 12.5 mg PO BEDTIME [facility] Last Admin: 06/27/17 20:53 Dose: 12.5 mg Simvastatin (Zocor) 40 mg PO BEDTIME [facility] Last Admin: 06/27/17 21:01 Dose: 40 mg Sodium Chloride (Saline Flush) 10 ml FLUSH ASDIRECTED PRN PRN Reason: Keep Vein Open Last Admin: 06/19/17 12:39 Dose: 10 ml [facility] Last Admin: 06/28/17 10:26 Dose: Not Given Tramadol HCl (Ultram) 50 mg PO Q6H PRN PRN Reason: Pain Last Admin: 06/28/17 00:35 Dose: 50 mg Discontinued Medications Albuterol (Proventil Neb Soln) 2.5 mg NEB Q4HR PRN PRN Reason: Shortness of Breath Albuterol/Ipratropium (Duoneb 3.0-0.5 Mg/3 Ml) ml INH Q6H [facility] Albuterol/Ipratropium (Duoneb 3.0-0.5 Mg/3 Ml) 3 ml INH Q6H [facility] Last Admin: 06/20/17 11:27 Dose: 3 ml Albuterol/Ipratropium (Duoneb 3.0-0.5 Mg/3 Ml) 3 ml INH Q6H [facility] Last Admin: 06/25/17 08:28 Dose: 3 ml Albuterol/Ipratropium (Duoneb 3.0-0.5 Mg/3 Ml) 3 ml INH QIDRT [facility] Last Admin: 06/28/17 07:13 Dose: Not Given Azithromycin (Zithromax) 250 mg PO ONETIME ONE Stop: 06/27/17 13:43 Last Admin: 06/27/17 15:02 Dose: Not Given Bisacodyl (Dulcolax) 10 mg RECTAL ONETIME ONE Stop: 06/26/17 03:32 Last Admin: 06/26/17 03:57 Dose: 10 mg Budesonide (Pulmicort) 0.25 mg NEB BIDRT [facility] Last Admin: 06/22/17 09:29 Dose: 0.25 mg Budesonide (Pulmicort) 0.25 mg NEB BID [facility] Budesonide (Pulmicort) 0.5 mg NEB BIDRT [facility] Last Admin: 06/23/17 08:20 Dose: 0.5 mg Budesonide (Pulmicort) 0.5 mg NEB BID [facility] Last Admin: 06/26/17 20:24 Dose: 0.5 mg Fentanyl (Duragesic) 12 mcg TRDERM Q72H [facility] Last Admin: 06/19/17 18:04 Dose: 12 mcg Fentanyl (Duragesic) 25 mcg TRDERM Q72H [facility] Last Admin: 06/20/17 10:59 Dose: 25 mcg Furosemide (Lasix) 40 mg IVPUSH NOW ONE Stop: 06/19/17 11:31 Last Admin: 06/19/17 11:44 Dose: 40 mg Furosemide (Lasix) 40 mg IVPUSH NOW ONE Stop: 06/20/17 08:01 Last Admin: 06/20/17 08:22 Dose: 40 mg Furosemide (Lasix) 40 mg IVPUSH NOW ONE Stop: 06/21/17 10:11 Last Admin: 06/21/17 10:50 Dose: 40 mg Furosemide (Lasix) 40 mg IVPUSH NOW ONE Stop: 06/23/17 19:35 Last Admin: 06/23/17 20:24 Dose: Not Given Furosemide (Lasix) 20 mg IVPUSH ONETIME ONE Stop: 06/24/17 08:01 Glipizide (Glucotrol) 10 mg PO DAILY@0630 [facility] Guaifenesin (Mucinex) 1,200 mg PO Q12HR PRN PRN Reason: Congestion Last Admin: 06/24/17 13:31 Dose: 1,200 mg Guaifenesin/Phenylephrine HCl (Robitussin Dm) 10 ml PO Q4H PRN PRN Reason: Cough Hydralazine HCl (Apresoline) 10 mg IVPUSH Q4H PRN PRN Reason: sb/p >150 Hydromorphone HCl (Dilaudid) 0.25 mg IVPUSH ONETIME ONE Stop: 06/19/17 11:20 Last Admin: 06/19/17 15:40 Dose: Not Given Hydromorphone HCl (Dilaudid) 0.5 mg IVPUSH ONETIME ONE Stop: 06/19/17 11:21 Last Admin: 06/19/17 15:41 Dose: Not Given Levofloxacin/Dextrose 750 mg/ (Premix) 150 mls @ 100 mls/hr IV ONETIME ONE Stop: 06/19/17 16:06 Last Admin: 06/19/17 15:34 Dose: 100 mls/hr Magnesium Sulfate 2 gm/ Premix 50 mls @ 25 mls/hr IV ONETIME ONE Stop: 06/19/17 20:07 Last Admin: 06/19/17 21:29 Dose: 25 mls/hr Levofloxacin/Dextrose 750 mg/ (Premix) 150 mls @ 100 mls/hr IV Q24H [facility] Last Admin: 06/26/17 18:08 Dose: 100 mls/hr Magnesium Sulfate 2 gm/ Premix 50 mls @ 25 mls/hr IV ONETIME ONE Stop: 06/20/17 11:34 Last Admin: 06/20/17 10:16 Dose: 25 mls/hr Magnesium Sulfate 2 gm/ Premix 50 mls @ 25 mls/hr IV ONETIME ONE Stop: 06/21/17 11:59 Last Admin: 06/21/17 10:48 Dose: 25 mls/hr Ceftriaxone Sodium 1 gm/ (Sodium Chloride) 100 mls @ 200 mls/hr IV Q24H [facility] Last Admin: 06/26/17 12:01 Dose: 200 mls/hr Sodium Chloride (Normal Saline) 1,000 mls @ 100 mls/hr IV ASDIRECTED [facility] Stop: 06/23/17 00:29 Last Admin: 06/21/17 14:53 Dose: 100 mls/hr Sodium Chloride (Normal Saline) 1,000 mls @ 75 mls/hr IV ASDIRECTED [facility] Sodium Chloride (Normal Saline) 1,000 mls @ 50 mls/hr IV ASDIRECTED [facility] Last Admin: 06/22/17 15:26 Dose: 50 mls/hr Magnesium Sulfate 4 gm/ Premix 100 mls @ 50 mls/hr IV ONETIME ONE Stop: 06/25/17 15:59 Magnesium Sulfate 2 gm/ Premix 50 mls @ 50 mls/hr IV Q1H [facility] Stop: 06/25/17 15:59 Last Admin: 06/25/17 15:25 Dose: 50 mls/hr Magnesium Sulfate (Magnesium Sulfate 2 Gm In Water 50 Ml) 100 mls @ 100 mls/hr IV ONETIME ONE Stop: 06/28/17 02:29 Last Admin: 06/28/17 02:32 Dose: 100 mls/hr Insulin Aspart (Novolog) 0 unit SUBCUT QIDACANDBED [facility] PRN Reason: Protocol Last Admin: 06/21/17 09:07 Dose: 1 unit Insulin Aspart (Novolog) 0 unit SUBCUT QIDACANDBED [facility] PRN Reason: Protocol Last Admin: 06/28/17 07:13 Dose: Not Given Insulin Detemir (Levemir) 10 unit SUBCUT BID [facility] Last Admin: 06/20/17 11:37 Dose: Not Given Ketorolac Tromethamine (Toradol) 30 mg IVPUSH Q6H [facility] Stop: 06/22/17 03:31 Last Admin: 06/22/17 03:28 Dose: 30 mg Levofloxacin (Levaquin) 750 mg PO Q24H [facility] Last Admin: 06/20/17 11:37 Dose: Not Given Lorazepam (Ativan) 0.5 mg IVPUSH ONETIME ONE Stop: 06/28/17 02:34 Last Admin: 06/28/17 03:05 Dose: 0.5 mg Magnesium Hydroxide (Milk Of Magnesia) 30 ml PO ONETIME ONE Stop: 06/22/17 17:31 Last Admin: 06/22/17 17:55 Dose: 30 ml Magnesium Hydroxide (Milk Of Magnesia) 30 ml PO ONETIME ONE Stop: 06/23/17 21:01 Metformin HCl (Glucophage) 1,000 mg PO BIDMEALS [facility] Last Admin: 06/21/17 06:49 Dose: 1,000 mg Metoprolol Succinate (Toprol Xl) 50 mg PO DAILY [facility] Metoprolol Tartrate (Lopressor) 5 mg IVPUSH Q4H PRN PRN Reason: Tachycardia Last Admin: 06/27/17 18:41 Dose: 5 mg Mometasone Furoate/Formoterol Fumar (Dulera 200-5 Mcg) 2 puff IH BID [facility] Last Admin: 06/21/17 08:24 Dose: 2 puff Morphine Sulfate (Morphine) 1 mg IVPUSH Q8H PRN PRN Reason: Pain Last Admin: 06/19/17 18:04 Dose: 1 mg Morphine Sulfate (Morphine) 2 mg IVPUSH ONETIME ONE Stop: 06/20/17 10:31 Last Admin: 06/20/17 10:43 Dose: 2 mg Morphine Sulfate (Morphine) 2 mg IVPUSH Q6H PRN PRN Reason: Pain Last Admin: 06/21/17 06:16 Dose: 2 mg Nicotine (Habitrol) 21 mg TRDERM DAILY [facility] Ondansetron HCl (Zofran) 4 mg IVPUSH ONETIME ONE Stop: 06/19/17 11:20 Last Admin: 06/19/17 12:39 Dose: Not Given Oral Electrolytes (Thermotabs) 2 each PO TID [facility] Last Admin: 06/22/17 23:08 Dose: 2 each Ptom - Glipizide (10mg Tablet) 1 each PO DAILY@0630 [facility] Last Admin: 06/20/17 11:38 Dose: Not Given Ptom - Metformin (500mg Tablet) 2 each PO BIDMEALS [facility] Last Admin: 06/20/17 11:38 Dose: Not Given Ptom: Metoprolol Succinate 50mg Tablet 1 each PO DAILY [facility] Last Admin: 06/20/17 11:38 Dose: Not Given Ptom: Simvastatin (40mg Tablet) 1 each PO BEDTIME [facility] Last Admin: 06/20/17 10:04 Dose: Not Given Ptom - Sitagliptin ( (Januvia) 100mg) 1 each PO DAILY [facility] Last Admin: 06/20/17 10:50 Dose: 1 each Quetiapine Fumarate (Seroquel) 25 mg PO DAILY [facility] Last Admin: 06/26/17 12:00 Dose: 25 mg Saxagliptin Hydrochloride (Onglyza) 5 mg PO DAILY [facility] Last Admin: 06/26/17 20:56 Dose: Not Given Temazepam (Restoril) 15 mg PO BEDTIME PRN PRN Reason: Insomnia Last Admin: 06/25/17 21:43 Dose: 15 mg Temazepam (Restoril) 30 mg PO BEDTIME PRN PRN Reason: Insomnia Tramadol HCl (Ultram) 50 mg PO ONETIME ONE Stop: 06/19/17 15:09 Last Admin: 06/19/17 15:12 Dose: 50 mg - Exam Quality Assessment: Supplemental Oxygen General: Alert, Cooperative, No Acute Distress HEENT: Pupils Equal, Pupils Reactive, Mucous Membr. Moist/[place] Neck: Supple, Trachea Midline, No JVD Lungs: Normal Respiratory Effort, Decreased Breath Sounds Cardiovascular: Regular Rate, Regular Rhythm GI/Abdominal Exam: Normal Bowel Sounds, Soft, Non-Tender, No Organomegaly, No Distention, No Abnormal Bruit, No Mass (Male) Exam: Deferred Back Exam: Normal Inspection, Decreased Range of Motion Extremities: Normal Inspection, Normal Range of Motion, Non-Tender, No Pedal Edema, Normal Capillary Refill Peripheral Pulses: 2+: Dorsalis Pedis (L), Dorsalis Pedis (R) Skin: Warm, Dry, Intact Neurological: No New Focal Deficit Psy/Mental Status: Alert, Normal Affect, Normal Mood - Problem List Review Problem List Initiated/Reviewed/Updated: Yes - My Orders Last 24 Hours: My Active Orders 06/27/17 13:45 Dextromethorphan/guaiFENesin [Robitussin DM] 10 ml PO Q6H 06/27/17 14:00 Azithromycin [Zithromax] 250 mg PO DAILY 06/27/17 16:08 Levalbuterol HCl [Xopenex] 0.63 mg NEB Q4HRRT PRN 06/27/17 16:13 Albuterol [Proventil Neb Soln] 0.63 mg NEB Q4HRRT PRN 06/27/17 21:00 Benzonatate [Tessalon Perles] 100 mg PO BID Levalbuterol HCl [Xopenex] 0.63 mg NEB Q6HRRT QUEtiapine [SEROquel] 12.5 mg PO BEDTIME 06/28/17 01:04 Metoprolol Tartrate [Lopressor] 5 mg IVPUSH Q4H PRN hydrALAZINE [Apresoline] 10 mg IVPUSH Q4H PRN 06/28/17 01:15 Magnesium Rep Pharmacy to Dose [Pharmacy to Dose - Magnesium Replacement] 0 dose .XX ASDIRECTED PRN Potassium Rep Pharmacy to Dose [Pharmacy to Dose - Potassium Replacement] 0 dose .XX ASDIRECTED PRN 06/28/17 07:00 Insulin Aspart [NovoLOG] See Protocol SUBCUT QIDACANDBED metFORMIN [Glucophage] 1,000 mg PO BIDMEALS - Plan Plan:: Impression: Acute: CAP -Risk Factors: Emphysema and Diffuse Lung Fibrosis on CT scan -Repeat CXR on 06/21/17 with worsening of probable pneumonia despite clinically appears non-toxic -WBC and CRP trending down -Completed Levaquin IV and continue low dose oral azithromycin daily -Cont with Neb tx, RT, IS/FV -Change Mucinex to Robitussin DM Q6 and Start Tessalon Perles 100 mg po TID -Mycoplasma and strep pneumonia negative; influenza screening and respiratory viral panel both negative DM Type 2, Stable -Novolog Medium SSI/Accuchecks AC/HS -Continue Glucotrol 10 mg po Daily and Metformin 1000 mg po BID -Advised to see if PCP agrees with him to switch him on SGTL2 Inhibitors after discharge Sinus Tachycardia with Tremors, IMproved -Likely 2/2 Albuterol -Continue Xopenex therapy -PRN Metoprolol for HR > 110 AMS/Encephalopathy -Psych consulted; 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 -He was started in Seroquel 25 mg po QHS but was stop and switched to Prozac but could not find Prozac in his current Med list -No sundowning in my opinion -Perceived depression or reduced LOC was due to medications side effects ( Narcotics, Restoril and Seroquel) Insomnia -Was restless last night; also he goes to bed at 2200 per daughter -Need to change sleep time at night to earlier -Continue Low dose Seroquel 12.5 mg po QHS -Monitor for intolerance Resolved: Electrolyte abnormalities: hypokalemia/hypomagnesemia -Replete and recheck- follow daily labs S/p Back pain with degenerative changes thoracolumbar spine; no compression fractures are noted on CT of thoracic and lumbar spines--back pain improved today -pain is controlled -Sciatica -Pain management- Fentanyl patch was discontinued due to intolerance -PO tramadol and PRN Morphine S/p Acute right leg pain--as of last night--? sciatica relating to acute on chronic LBP but back pain itself is improved today--exam of leg is unremarkable -Will obtain xrays of rt hip and knee--->popliteal cyst -Labs: uric acid, esr, rheumatoid factor -Venous doppler to r/o DVT- negative -Consider Orthopedic consult S/p Query CHF, mild bilateral pulmonary congestion. -? vascular congestion on CXR -BNP 1062-->1067 - repeat tomorrow -IV lasix with caution as he has been hypotensive -Has hx of CHF -Consider echo if not done in last 6 months; will check records. Chronic History of CAD/CABG HLD--cholesterol levels WNL/acceptable- cont home meds HTN- stable- cont home meds HF Hx COPD BPH Hx AVR- on coumadin- INR 1.52 today Plan: He is clinically better this am Continue current treatment with PT/OT SW consult for SNF for rehab stay DVT/GI prophylaxis Encourage to use FV as directed Additional orders as above Patient is Full Code status PCP is Dr. Coyle with [facility] in [facility] d/c today; he slept so late and still in bed D/c in am instead Informed daughter we needed to change his sleep time to earlier time. Patient goes to bed at 2200 according to his daughter.
[2017-06-28] MEDS: QUEtiapine 25 MG Tab PO SCH (20:32)
[2017-06-28] MEDS: Simvastatin 40 MG Tab PO SCH (20:33)
[2017-06-29] MEDS: guaiFENesin/Dextromethorphan 100-10 MG/5 ML Soln 5 ML Cup PO SCH ×3 (02:54→13:49)
[2017-06-29] MEDS: Levalbuterol HCl 0.63 MG/3 ML Neb NEB SCH ×2 (03:05→08:40)
[2017-06-29] MEDS: Magnesium Oxide 400 MG Tab PO SCH (09:38)
[2017-06-29] MEDS: traMADol 50 MG Tab PO PRN (09:38)
[2017-06-29] MEDS: Metoprolol Succinate 50 MG Tab.ER PO SCH (09:40)
[2017-06-29] MEDS: Tamsulosin 0.4 MG Cap.ER PO SCH (09:41)
[2017-06-29] MEDS: Azithromycin 250 MG Tab PO SCH (09:41)
[2017-06-29] MEDS: Benzonatate 100 MG Cap PO SCH (09:41)
[2017-06-29] MEDS: Famotidine 20 MG Tab PO SCH (09:41)
[2017-06-29] MEDS: Aspirin 81 MG Tab.Chew PO SCH (09:42)
[2017-06-29] MEDS: Nicotine 7 MG/24 Hr Patch TRDERM SCH (09:42)
[2017-06-29] MEDS: Enoxaparin 40 MG/0.4 ML Syringe SUBCUT SCH (09:43)
[2017-06-29] MEDS: BRIMONIDINE 0.15% EYEBOTH SCH (09:44)
[2017-06-29] MEDS: ROFLUMILAST 500 MG PO SCH (09:45)
--- NOTE | 2017-06-29 10:59 | PCM.DCSUM1 ---
Discharge Summary - Hospital Course Brief History: 87 year old male with history of LLL lung abscess, recently treated for LLL infiltrate in April 2017. He presents with a complaint of mid back pain over 1-2 weeks. The pain is exacerbated by coughing. A CT of thoracolumbar spine documents degenerative changes on multiple levels. Compression fractures are not seen. He also has an elevated WBC/CRP and appears to have possible LLL infiltrate with mild bilateral congestion on CXR. Treatment was initiated for PNA as well as pain management. The patient is deconditioned, relucatant to move with the recent back discomfort. - Discharge Data Discharge Date: 06/29/17 Discharge Disposition: DC/Tfer to [place] [id number] Condition: Good - Discharge Diagnosis/Problem(s) (1) CAP (community acquired pneumonia) SNOMED Code(s): 070404949 ICD Code: J18.9 - PNEUMONIA, UNSPECIFIED ORGANISM Status: Acute Qualifiers: Laterality: unspecified laterality Qualified Code(s): J18.9 - Pneumonia, unspecified organism (2) Altered mental status SNOMED Code(s): 407145168 ICD Code: R41.82 - ALTERED MENTAL STATUS, UNSPECIFIED Status: Resolved Qualifiers: Altered mental status type: delirium Qualified Code(s): R41.0 - Disorientation, unspecified (3) Sinus tachycardia SNOMED Code(s): 36718478 ICD Code: R00.0 - TACHYCARDIA, UNSPECIFIED Status: Acute (4) Insomnia SNOMED Code(s): 268691270 ICD Code: G47.00 - INSOMNIA, UNSPECIFIED Status: Acute Qualifiers: Insomnia type: unspecified Qualified Code(s): G47.00 - Insomnia, unspecified (5) Hyperglycemia due to type 2 diabetes mellitus SNOMED Code(s): 228599580987639 ICD Code: E11.65 - TYPE 2 DIABETES MELLITUS WITH HYPERGLYCEMIA Status: Chronic Qualifiers: Diabetes mellitus intermediate card tender insulin use: unspecified usp insulin use status Qualified Code(s): E11.65 - Type 2 diabetes mellitus with hyperglycemia (6) Hypokalemia SNOMED Code(s): 60839743 ICD Code: E87.6 - HYPOKALEMIA Status: Resolved (7) Hypomagnesemia SNOMED Code(s): 193138131 ICD Code: E83.42 - HYPOMAGNESEMIA Status: Resolved (8) Leg pain, right SNOMED Code(s): 768879224 ICD Code: M79.604 - PAIN IN RIGHT LEG Status: Resolved (9) Back pain of thoracolumbar region SNOMED Code(s): 005305976 ICD Code: M54.5 - LOW BACK PAIN Status: Resolved - Patient Summary/Data Operative Procedure(s) Performed: None Complications: None Consults: Consultations 06/21/17 20:33 Consult to Spiritual Care [CONS] Routine 06/22/17 09:00 Consult to Physician [CONS] Routine Labs Pending at D/C: None Recommended Follow-up Testing/Procedures: None Planned Operative Procedure(s) after DC: None Hospital Course: Patient was primarily admitted for treatment of community acquired pneumonia. 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 He was recently treated with pneumonia back in April. He presented on this admission with similar chief complaints. Patient received appropriate respiratory treatments to include intravenous antibiotics, bronchodilators, decongestant/expectorant and routine respiratory care. Slowly he improved on this regimen. His hospital course was complicated by delirium induced by medications. However after those medications were stopped, he slowly came back to his baseline. His pulmonary medications were also adjusted to improve further his respiratory function. Overall patient had done fairly well since admission. His family was pretty satisfied with the changes we made and the improvement they saw during the last few days of his hospitalization. Patient was stable on the day of discharge. He was provided additional course of oral azithromycin for anti-inflammatory agent. He was also provided with prescription for Xopenex to replace his albuterol regimen but family was informed they may need to go back with albuterol if Xopenex is deemed expensive. Patient was advised to follow-up with his primary care in 1 week as a scheduled. He was further advised to come back or seek immediate care should his symptoms persist or get worse. On the day of discharge, Dr. Coyle was called and updated regarding discharge care plan. - Patient Instructions Diet: Heart Healthy Diet, Usual Diet as Tolerated, Diabetic Diet Activity: As Tolerated Driving: Do Not Drive Showering/Bathing: May Shower Notify Provider of: Fever, Increased Pain, Nausea and/or Vomiting Other/Special Instructions: - Please take all medications as directed. - Continue to use Incentive Spirometry and Flutter Valve. - You must go to sleep no later than 2100 hrs. - If you are not able to afford Xopenex, please continue your albuterol home medications. - Follow up with your doctor in 1 week. - Call or follow with your doctor after discharge for any questions or concerns - Discharge Plan Prescriptions/Med Rec: Benzonatate [Tessalon Perles] 100 mg PO BID #60 cap Dextromethorphan/guaiFENesin [Robitussin DM] 10 ml PO ASDIRECTED PRN #1 cup PRN Reason: Other QUEtiapine [SEROquel] 12.5 mg PO BEDTIME PRN #30 tablet PRN Reason: Other Home Medications: Home Meds Losartan [Cozaar] 25 mg PO DAILY 04/28/14 [History] Metoprolol Succinate [Toprol XL] 50 mg PO DAILY 04/28/14 [History] Multivitamin [Multi-Vitamin Daily] 1 tab PO DAILY 04/28/14 [History] [place]-3 Fatty Acids [[place]-3] 1,000 mg PO DAILY 04/28/14 [History] Simvastatin [Zocor] 40 mg PO BEDTIME 04/28/14 [History] SitaGLIPtin [Januvia] 100 mg PO DAILY 04/28/14 [History] metFORMIN HCl [Fortamet] 1,000 mg PO BID 04/28/14 [History] Acetaminophen [Tylenol Extra Strength] 500 mg PO Q6HR PRN 05/10/17 [History] Brimonidine [Alphagan P 0.15% Ophth Soln] 1 drop EYEBOTH BID 05/10/17 [History] Carboxymethylcellulos/Glycerin [Eq Lubricating Eye Drops] 1 drop EYEBOTH BID [History] Nitroglycerin [Nitrostat] 0.4 mg SL Q5M PRN 05/10/17 [History] glipiZIDE [Glucotrol] 10 mg PO DAILY 05/10/17 [History] Magnesium Oxide 400 mg PO BID #60 tablet 05/17/17 [Rx] Nicotine [Habitrol] 7 mg TRDERM DAILY 06/19/17 [History] Roflumilast [Daliresp] 500 mcg PO DAILY 06/19/17 [History] Benzonatate [Tessalon Perles] 100 mg PO BID #60 cap 06/29/17 [Rx] Dextromethorphan/guaiFENesin [Robitussin DM] 10 ml PO ASDIRECTED PRN #1 cup 05/06 [Rx] QUEtiapine [SEROquel] 12.5 mg PO BEDTIME PRN #30 tablet 06/29/17 [Rx] Azithromycin [Zithromax] 250 mg PO ASDIRECTED 07/01/17 [History] LORazepam 0.5 mg PO BEDTIME 07/01/17 [History] Levalbuterol HCl [Xopenex] 0.63 mg IH Q6H 07/01/17 [History] Oxygen 4 liter EMELY ASDIRECTED PRN 07/01/17 [History] Patient Handouts: Hypoxemia, Community-Acquired Pneumonia, Adult, [id number] Referrals: Moo Coyle MD [Primary Care Provider] - - Discharge Summary/Plan Comment DC Time >30 min.: Yes (45 mins) Discharge Summary/Plan Comment: Discharge to local CT - General Info Date of Service: 06/29/17 Admission Dx/Problem (Free Text: Admission Diagnosis/Problem Admission Diagnosis/Problem Pneumonia Subjective Update: Follow Up Functional Status: Reports: Pain Controlled, Tolerating Diet, Ambulating, Urinating. Denies: New Symptoms - Review of Systems General: Reports: Weakness, Fatigue. Denies: Fever, Chills HEENT: Reports: No Symptoms Pulmonary: Reports: Shortness of Breath, Cough. Denies: Wheezing Cardiovascular: Denies: Chest Pain, Palpitations, Dyspnea on Exertion, Lightheadedness Gastrointestinal: Denies: Abdominal Pain, Difficulty Swallowing, Nausea, Vomiting Genitourinary: Reports: No Symptoms Musculoskeletal: Reports: No Symptoms Skin: Denies: Cyanosis, Mottled, Pallor, Diaphoresis, Rash Neurological: Reports: Weakness, Gait Disturbance. Denies: Confusion, Difficulty Walking Psychiatric: Denies: Depression, Anxiety, Agitation, Hallucinations - Patient Data Vitals - Most Recent: Last Vital Signs Temp 37.2 C 06/29/17 02:12 Pulse 120 H 06/29/17 09:40 Resp 20 06/29/17 02:12 BP 114/91 H 06/29/17 09:40 Pulse Ox 91 L 06/29/17 08:41 Weight - Most Recent: 72.575 kg I&O - Last 24 hours: Intake & Output 06/28/17 06/29/17 06/29/17 22:59 06:59 14:59 Intake Total 640 400 Output Total 575 250 Balance 65 150 Lab Results - Last 24 hrs: Laboratory Results - last 24 hr 06/28/17 06/28/17 06/28/17 Range/Units 11:59 16:23 21:48 WBC (4.23-9.07) K/mm3 RBC (4.63-6.08) M/mm3 Hgb (13.7-17.5) gm/L Hct (40.1-51.0) % MCV (79.0-92.2) fl MCH (25.7-32.2) pg MCHC (32.2-35.5) g/dl RDW Std Deviation (35.1-43.9) fL Plt Count (163-337) K/mm3 MPV (9.4-12.3) fl Neut % (Auto) (34.0-67.9) % Lymph % (Auto) (21.8-53.1) % Kerr % (Auto) (5.3-12.2) % Eos % (Auto) (0.8-7.0) Baso % (Auto) (0.1-1.2) % Neut # (Auto) (1.78-5.38) K/mm3 Lymph # (Auto) (1.32-3.57) K/mm3 Kerr # (Auto) (0.30-0.82) K/mm3 Eos # (Auto) (0.04-0.54) K/mm3 Baso # (Auto) (0.01-0.08) K/mm3 Sodium (136-145) mEq/L Potassium (3.5-5.1) mEq/L Chloride (98-107) mEq/L Carbon Dioxide (21-32) mEq/L Anion Gap (5-15) BUN (7-18) mg/dL Creatinine (0.7-1.3) mg/dL Est Cr Clr Drug Dosing mL/min Estimated GFR (MDRD) (>60) mL/min BUN/Creatinine Ratio (14-18) Glucose (83-115) mg/dL POC Glucose 202 H 208 H 255 H (83-110) mg/dL Calcium (8.5-10.1) mg/dL Magnesium (1.8-2.4) mg/dl 06/29/17 06/29/17 06/29/17 Range/Units 05:46 05:46 07:02 WBC 12.86 H (4.23-9.07) K/mm3 RBC 3.23 L (4.63-6.08) M/mm3 Hgb 9.8 L (13.7-17.5) gm/L Hct 31.1 L (40.1-51.0) % MCV 96.3 H (79.0-92.2) fl MCH 30.3 (25.7-32.2) pg MCHC 31.5 L (32.2-35.5) g/dl RDW Std Deviation 49.1 H (35.1-43.9) fL Plt Count 296 (163-337) K/mm3 MPV 9.7 (9.4-12.3) fl Neut % (Auto) 77.6 H (34.0-67.9) % Lymph % (Auto) 10.1 L (21.8-53.1) % Kerr % (Auto) 10.4 (5.3-12.2) % Eos % (Auto) 1.3 (0.8-7.0) Baso % (Auto) 0.2 (0.1-1.2) % Neut # (Auto) 9.97 H (1.78-5.38) K/mm3 Lymph # (Auto) 1.30 L (1.32-3.57) K/mm3 Kerr # (Auto) 1.34 H (0.30-0.82) K/mm3 Eos # (Auto) 0.17 (0.04-0.54) K/mm3 Baso # (Auto) 0.03 (0.01-0.08) K/mm3 Sodium 135 L (136-145) mEq/L Potassium 4.5 (3.5-5.1) mEq/L Chloride 99 (98-107) mEq/L Carbon Dioxide 30 (21-32) mEq/L Anion Gap 10.5 (5-15) BUN 17 (7-18) mg/dL Creatinine 1.0 (0.7-1.3) mg/dL Est Cr Clr Drug Dosing 54.43 mL/min Estimated GFR (MDRD) > 60 (>60) mL/min BUN/Creatinine Ratio 17.0 (14-18) Glucose 154 H (83-115) mg/dL POC Glucose 169 H (83-110) mg/dL Calcium 9.0 (8.5-10.1) mg/dL Magnesium 1.8 (1.8-2.4) mg/dl TREY Results - Last 24 hrs: Microbiology 06/27/17 14:00 Gram Stain - Final Sputum - Expectorated Sputum Culture - Final Med Orders - Current: Current Medications Albuterol (Proventil Neb Soln) 0.63 mg NEB Q4HRRT PRN PRN Reason: Shortness of Breath Aspirin (Aspirin) 81 mg PO DAILY [facility] Last Admin: 06/29/17 09:42 Dose: 81 mg Azithromycin (Zithromax) 250 mg PO DAILY [facility] Last Admin: 06/29/17 09:41 Dose: 250 mg Benzonatate (Tessalon Perles) 100 mg PO BID [facility] Last Admin: 06/29/17 09:41 Dose: 100 mg Enoxaparin Sodium (Lovenox) 40 mg SUBCUT DAILY [facility] Last Admin: 06/29/17 09:43 Dose: 40 mg Famotidine (Pepcid) 20 mg PO BID [facility] Last Admin: 06/29/17 09:41 Dose: 20 mg Glipizide (Glucotrol) 10 mg PO DAILY@0630 [facility] Last Admin: 06/28/17 10:22 Dose: Not Given Guaifenesin/Phenylephrine HCl (Robitussin Dm) 10 ml PO Q6H [facility] Last Admin: 06/29/17 09:43 Dose: 10 ml Hydralazine HCl (Apresoline) 10 mg IVPUSH Q4H PRN PRN Reason: Hypertension Insulin Aspart (Novolog) 0 unit SUBCUT QIDACANDBED [facility] PRN Reason: Protocol Last Admin: 06/28/17 22:19 Dose: 9 units Levalbuterol HCl (Xopenex) 0.63 mg NEB Q6HRRT [facility] Last Admin: 06/29/17 08:40 Dose: 0.63 mg Levalbuterol HCl (Xopenex) 0.63 mg NEB Q4HRRT PRN PRN Reason: Shortness of Breath Last Admin: 06/27/17 16:20 Dose: 0.63 mg Magnesium Oxide (Magnesium Oxide) 400 mg PO BID [facility] Last Admin: 06/29/17 09:38 Dose: 400 mg Magnesium Sulfate (Pharmacy To Dose - Magnesium Replacement) 0 dose .XX ASDIRECTED PRN PRN Reason: RX TO WATCH MAG LEVELS Metformin HCl (Glucophage) 1,000 mg PO BIDMEALS [facility] Last Admin: 06/28/17 18:35 Dose: 1,000 mg Metoprolol Succinate (Toprol Xl) 50 mg PO DAILY [facility] Last Admin: 06/29/17 09:40 Dose: 50 mg Metoprolol Tartrate (Lopressor) 5 mg IVPUSH Q4H PRN PRN Reason: Tachycardia Miscellaneous Information (Remove Patch) 1 ea TRDERM Q72H [facility] Last Admin: 06/26/17 14:30 Dose: Not Given Nicotine (Habitrol) 7 mg TRDERM DAILY [facility] Last Admin: 06/29/17 09:42 Dose: Not Given Nitroglycerin (Nitrostat) 0.4 mg SL Q5M PRN PRN Reason: Chest Pain Ptom - Brimonidine 0 (.15% Ophth Soln) 1 each EYEBOTH BID [facility] Last Admin: 06/29/17 09:44 Dose: 1 each Ptom - Refresh (Optive Ophth Soln) 0 each EYEBOTH BID [facility] Last Admin: 06/28/17 20:36 Dose: 1 each Ptom - Roflumilast (500mg (Daliresp)) 1 each PO DAILY [facility] Last Admin: 06/29/17 09:45 Dose: 1 each Potassium Chloride (Pharmacy To Dose - Potassium Replacement) 0 dose .XX ASDIRECTED PRN PRN Reason: RX TO WATCH K LEVELS Quetiapine Fumarate (Seroquel) 12.5 mg PO BEDTIME [facility] Last Admin: 06/28/17 20:32 Dose: 12.5 mg Simvastatin (Zocor) 40 mg PO BEDTIME [facility] Last Admin: 06/28/17 20:33 Dose: 40 mg Sodium Chloride (Saline Flush) 10 ml FLUSH ASDIRECTED PRN PRN Reason: Keep Vein Open Last Admin: 06/19/17 12:39 Dose: 10 ml Tamsulosin HCl (Flomax) 0.4 mg PO BIDPC [facility] Last Admin: 06/29/17 09:41 Dose: 0.4 mg Tramadol HCl (Ultram) 50 mg PO Q6H PRN PRN Reason: Pain Last Admin: 06/29/17 09:38 Dose: 50 mg Discontinued Medications Albuterol (Proventil Neb Soln) 2.5 mg NEB Q4HR PRN PRN Reason: Shortness of Breath Albuterol/Ipratropium (Duoneb 3.0-0.5 Mg/3 Ml) ml INH Q6H [facility] Albuterol/Ipratropium (Duoneb 3.0-0.5 Mg/3 Ml) 3 ml INH Q6H [facility] Last Admin: 06/20/17 11:27 Dose: 3 ml Albuterol/Ipratropium (Duoneb 3.0-0.5 Mg/3 Ml) 3 ml INH Q6H [facility] Last Admin: 06/25/17 08:28 Dose: 3 ml Albuterol/Ipratropium (Duoneb 3.0-0.5 Mg/3 Ml) 3 ml INH QIDRT [facility] Last Admin: 06/28/17 07:13 Dose: Not Given Azithromycin (Zithromax) 250 mg PO ONETIME ONE Stop: 06/27/17 13:43 Last Admin: 06/27/17 15:02 Dose: Not Given Bisacodyl (Dulcolax) 10 mg RECTAL ONETIME ONE Stop: 06/26/17 03:32 Last Admin: 06/26/17 03:57 Dose: 10 mg Budesonide (Pulmicort) 0.25 mg NEB BIDRT [facility] Last Admin: 06/22/17 09:29 Dose: 0.25 mg Budesonide (Pulmicort) 0.25 mg NEB BID [facility] Budesonide (Pulmicort) 0.5 mg NEB BIDRT [facility] Last Admin: 06/23/17 08:20 Dose: 0.5 mg Budesonide (Pulmicort) 0.5 mg NEB BID [facility] Last Admin: 06/26/17 20:24 Dose: 0.5 mg Fentanyl (Duragesic) 12 mcg TRDERM Q72H [facility] Last Admin: 06/19/17 18:04 Dose: 12 mcg Fentanyl (Duragesic) 25 mcg TRDERM Q72H [facility] Last Admin: 06/20/17 10:59 Dose: 25 mcg Furosemide (Lasix) 40 mg IVPUSH NOW ONE Stop: 06/19/17 11:31 Last Admin: 06/19/17 11:44 Dose: 40 mg Furosemide (Lasix) 40 mg IVPUSH NOW ONE Stop: 06/20/17 08:01 Last Admin: 06/20/17 08:22 Dose: 40 mg Furosemide (Lasix) 40 mg IVPUSH NOW ONE Stop: 06/21/17 10:11 Last Admin: 06/21/17 10:50 Dose: 40 mg Furosemide (Lasix) 40 mg IVPUSH NOW ONE Stop: 06/23/17 19:35 Last Admin: 06/23/17 20:24 Dose: Not Given Furosemide (Lasix) 20 mg IVPUSH ONETIME ONE Stop: 06/24/17 08:01 Glipizide (Glucotrol) 10 mg PO DAILY@0630 [facility] Guaifenesin (Mucinex) 1,200 mg PO Q12HR PRN PRN Reason: Congestion Last Admin: 06/24/17 13:31 Dose: 1,200 mg Guaifenesin/Phenylephrine HCl (Robitussin Dm) 10 ml PO Q4H PRN PRN Reason: Cough Hydralazine HCl (Apresoline) 10 mg IVPUSH Q4H PRN PRN Reason: sb/p >150 Hydromorphone HCl (Dilaudid) 0.25 mg IVPUSH ONETIME ONE Stop: 06/19/17 11:20 Last Admin: 06/19/17 15:40 Dose: Not Given Hydromorphone HCl (Dilaudid) 0.5 mg IVPUSH ONETIME ONE Stop: 06/19/17 11:21 Last Admin: 06/19/17 15:41 Dose: Not Given Levofloxacin/Dextrose 750 mg/ (Premix) 150 mls @ 100 mls/hr IV ONETIME ONE Stop: 06/19/17 16:06 Last Admin: 06/19/17 15:34 Dose: 100 mls/hr Magnesium Sulfate 2 gm/ Premix 50 mls @ 25 mls/hr IV ONETIME ONE Stop: 06/19/17 20:07 Last Admin: 06/19/17 21:29 Dose: 25 mls/hr Levofloxacin/Dextrose 750 mg/ (Premix) 150 mls @ 100 mls/hr IV Q24H [facility] Last Admin: 06/26/17 18:08 Dose: 100 mls/hr Magnesium Sulfate 2 gm/ Premix 50 mls @ 25 mls/hr IV ONETIME ONE Stop: 06/20/17 11:34 Last Admin: 06/20/17 10:16 Dose: 25 mls/hr Magnesium Sulfate 2 gm/ Premix 50 mls @ 25 mls/hr IV ONETIME ONE Stop: 06/21/17 11:59 Last Admin: 06/21/17 10:48 Dose: 25 mls/hr Ceftriaxone Sodium 1 gm/ (Sodium Chloride) 100 mls @ 200 mls/hr IV Q24H [facility] Last Admin: 06/26/17 12:01 Dose: 200 mls/hr Sodium Chloride (Normal Saline) 1,000 mls @ 100 mls/hr IV ASDIRECTED [facility] Stop: 06/23/17 00:29 Last Admin: 06/21/17 14:53 Dose: 100 mls/hr Sodium Chloride (Normal Saline) 1,000 mls @ 75 mls/hr IV ASDIRECTED [facility] Sodium Chloride (Normal Saline) 1,000 mls @ 50 mls/hr IV ASDIRECTED [facility] Last Admin: 06/22/17 15:26 Dose: 50 mls/hr Magnesium Sulfate 4 gm/ Premix 100 mls @ 50 mls/hr IV ONETIME ONE Stop: 06/25/17 15:59 Magnesium Sulfate 2 gm/ Premix 50 mls @ 50 mls/hr IV Q1H [facility] Stop: 06/25/17 15:59 Last Admin: 06/25/17 15:25 Dose: 50 mls/hr Magnesium Sulfate (Magnesium Sulfate 2 Gm In Water 50 Ml) 100 mls @ 100 mls/hr IV ONETIME ONE Stop: 06/28/17 02:29 Last Admin: 06/28/17 02:32 Dose: 100 mls/hr Insulin Aspart (Novolog) 0 unit SUBCUT QIDACANDBED [facility] PRN Reason: Protocol Last Admin: 06/21/17 09:07 Dose: 1 unit Insulin Aspart (Novolog) 0 unit SUBCUT QIDACANDBED [facility] PRN Reason: Protocol Last Admin: 06/28/17 07:13 Dose: Not Given Insulin Detemir (Levemir) 10 unit SUBCUT BID [facility] Last Admin: 06/20/17 11:37 Dose: Not Given Ketorolac Tromethamine (Toradol) 30 mg IVPUSH Q6H [facility] Stop: 06/22/17 03:31 Last Admin: 06/22/17 03:28 Dose: 30 mg Levofloxacin (Levaquin) 750 mg PO Q24H [facility] Last Admin: 06/20/17 11:37 Dose: Not Given Lorazepam (Ativan) 0.5 mg IVPUSH ONETIME ONE Stop: 06/28/17 02:34 Last Admin: 06/28/17 03:05 Dose: 0.5 mg Lorazepam (Ativan) 0.25 mg IVPUSH ONETIME ONE Stop: 06/28/17 20:01 Last Admin: 06/28/17 20:34 Dose: 0.25 mg Magnesium Hydroxide (Milk Of Magnesia) 30 ml PO ONETIME ONE Stop: 06/22/17 17:31 Last Admin: 06/22/17 17:55 Dose: 30 ml Magnesium Hydroxide (Milk Of Magnesia) 30 ml PO ONETIME ONE Stop: 06/23/17 21:01 Metformin HCl (Glucophage) 1,000 mg PO BIDMEALS [facility] Last Admin: 06/21/17 06:49 Dose: 1,000 mg Metoprolol Succinate (Toprol Xl) 50 mg PO DAILY [facility] Metoprolol Tartrate (Lopressor) 5 mg IVPUSH Q4H PRN PRN Reason: Tachycardia Last Admin: 06/27/17 18:41 Dose: 5 mg Mometasone Furoate/Formoterol Fumar (Dulera 200-5 Mcg) 2 puff IH BID [facility] Last Admin: 06/21/17 08:24 Dose: 2 puff Morphine Sulfate (Morphine) 1 mg IVPUSH Q8H PRN PRN Reason: Pain Last Admin: 06/19/17 18:04 Dose: 1 mg Morphine Sulfate (Morphine) 2 mg IVPUSH ONETIME ONE Stop: 06/20/17 10:31 Last Admin: 06/20/17 10:43 Dose: 2 mg Morphine Sulfate (Morphine) 2 mg IVPUSH Q6H PRN PRN Reason: Pain Last Admin: 06/21/17 06:16 Dose: 2 mg Nicotine (Habitrol) 21 mg TRDERM DAILY [facility] Ondansetron HCl (Zofran) 4 mg IVPUSH ONETIME ONE Stop: 06/19/17 11:20 Last Admin: 06/19/17 12:39 Dose: Not Given Oral Electrolytes (Thermotabs) 2 each PO TID [facility] Last Admin: 06/22/17 23:08 Dose: 2 each Ptom - Glipizide (10mg Tablet) 1 each PO DAILY@0630 [facility] Last Admin: 06/20/17 11:38 Dose: Not Given Ptom - Metformin (500mg Tablet) 2 each PO BIDMEALS [facility] Last Admin: 06/20/17 11:38 Dose: Not Given Ptom: Metoprolol Succinate 50mg Tablet 1 each PO DAILY [facility] Last Admin: 06/20/17 11:38 Dose: Not Given Ptom: Simvastatin (40mg Tablet) 1 each PO BEDTIME [facility] Last Admin: 06/20/17 10:04 Dose: Not Given Ptom - Sitagliptin ( (Januvia) 100mg) 1 each PO DAILY [facility] Last Admin: 06/20/17 10:50 Dose: 1 each Quetiapine Fumarate (Seroquel) 25 mg PO DAILY [facility] Last Admin: 06/26/17 12:00 Dose: 25 mg Saxagliptin Hydrochloride (Onglyza) 5 mg PO DAILY [facility] Last Admin: 06/26/17 20:56 Dose: Not Given Temazepam (Restoril) 15 mg PO BEDTIME PRN PRN Reason: Insomnia Last Admin: 06/25/17 21:43 Dose: 15 mg Temazepam (Restoril) 30 mg PO BEDTIME PRN PRN Reason: Insomnia Tramadol HCl (Ultram) 50 mg PO ONETIME ONE Stop: 06/19/17 15:09 Last Admin: 06/19/17 15:12 Dose: 50 mg - Exam Quality Assessment: Reports: Supplemental Oxygen General: Reports: Alert, Cooperative, No Acute Distress HEENT: Reports: Pupils Equal, Pupils Reactive, Mucous Membr. Moist/[place] Neck: Reports: Supple, Trachea Midline, No JVD Lungs: Reports: Normal Respiratory Effort, Decreased Breath Sounds, Crackles, Rhonchi Cardiovascular: Reports: Regular Rhythm, Tachycardia GI/Abdominal Exam: Normal Bowel Sounds, Soft, Non-Tender, No Organomegaly, No Distention, No Abnormal Bruit, No Mass (Male) Exam: Deferred Rectal (Males) Exam: Deferred Back Exam: Reports: Normal Inspection, Decreased Range of Motion Extremities: Normal Inspection, Normal Range of Motion, Non-Tender, No Pedal Edema, Normal Capillary Refill Skin: Reports: Warm, Dry, Intact Neurological: Reports: No New Focal Deficit Psy/Mental Status: Reports: Alert, Normal Affect, Normal Mood *Q Meaningful Use (DIS) - VTE *Q VTE Criteria *Q: - Stroke *Q Stroke Criteria *Q: - AMI *Q AMI Criteria *Q:
[2017-06-29] MEDS: Insulin Aspart 100 Units/ML 3 ML Pen SUBCUT SCH ×2 (11:23→11:32)
[2017-06-29] MEDS: metFORMIN 500 MG Tab PO SCH (11:24)
[2017-06-29] MEDS: REFRESH OPTIVE EYEBOTH SCH (11:34)
[2017-06-29] MEDS: Remove Patch*FENTANYL TRDERM SCH (11:34)
[2017-06-29 12:43] VITALS: BP 96/52
== END 2017-06-29 14:05 | DRG 194 ==
LOC: JD.ED 10:21 → JD.MS 14:12 → INTOOBSV 14:12 → OBSVTOIN 06-20 09:35
PROVIDERS: ADMIT Internal Medicine Cardiovascular Disease; ATTEND Internal Medicine Cardiovascular Disease
DX: J18.9 Pneumonia, unspecified organism (principal); I25.810 Atherosclerosis of coronary artery bypass graft(s) without angina pectoris; I50.33 Acute on chronic diastolic (congestive) heart failure; F19.921 Other psychoactive substance use, unspecified with intoxication with delirium; I50.32 Chronic diastolic (congestive) heart failure; J06.9 Acute upper respiratory infection, unspecified; I11.0 Hypertensive heart disease with heart failure; D72.825 Bandemia; E11.9 Type 2 diabetes mellitus without complications; E78.00 Pure hypercholesterolemia, unspecified; Z87.891 Personal history of nicotine dependence; M54.6 Pain in thoracic spine; M79.604 Pain in right leg; E86.0 Dehydration; J44.9 Chronic obstructive pulmonary disease, unspecified; Z91.09 Other allergy status, other than to drugs and biological substances; Z87.01 Personal history of pneumonia (recurrent); M19.90 Unspecified osteoarthritis, unspecified site; E11.65 Type 2 diabetes mellitus with hyperglycemia; H91.90 Unspecified hearing loss, unspecified ear; H54.7 Unspecified visual loss; E78.5 Hyperlipidemia, unspecified; N40.0 Benign prostatic hyperplasia without lower urinary tract symptoms; F32.9 Major depressive disorder, single episode, unspecified; R09.02 Hypoxemia; E87.6 Hypokalemia; E83.42 Hypomagnesemia; R00.0 Tachycardia, unspecified; R25.1 Tremor, unspecified; G47.00 Insomnia, unspecified; R41.82 Altered mental status, unspecified; Z88.0 Allergy status to penicillin; Z88.6 Allergy status to analgesic agent; Z91.041 Radiographic dye allergy status; Z79.84 Long term (current) use of oral hypoglycemic drugs; Z79.82 Long term (current) use of aspirin; Z79.4 Long term (current) use of insulin; Z79.899 Other long term (current) drug therapy
CPT/HCPCS: 36415 ×2; 71045; 72128; 72131; 80048; 80053; 81001; 82553; 82962 ×3; 83735 ×2; 83880; 84484; 85025 ×2; 85610; 86140 ×2; 87641; 93005; 96374; 99285; A9270 ×3; J1650; J1815; J1940 ×2; J1956; J2270; J7050; 51798; 71046; 71046-26; 72148; 72148-26; 73502-26-RT; 73502-RT; 73562-26-RT; 73562-RT; 82947; 84550; 85652; 86430; 86738; 87205; 87502; 87503; 87804; 87899; 93970; 93970-26; 94640; 94664; 94667; 94668; 94760; 94761; 96365; 96372; 96375; 97110-GO; 97110-GP; 97116-GP; 97162-GP; 97166-GO; 97530-GO; 97530-GP; G0378; J0696; J1885; J2060; J3475; J3490; J7030; J7040

== ENCOUNTER 2017-07-01 09:01 | Emergency (ER) | payer MEDICARE, OTHER ==
[2017-07-01 09:16] VITALS: BP 89/49
[2017-07-01] MEDS ORDERED: Sodium Chloride 0.9% 10 ML Syringe FLUSH PRN (09:21)
[2017-07-01] MEDS ORDERED: Sodium Chloride 0.9% 200 ML IV ONE (11:27)
[2017-07-01] MEDS ORDERED: Insulin Regular, Human 100 Units/ML 3 ML Vial SUBCUT ONE (11:55)
--- NOTE | 2017-07-01 11:55 | EDM.PDOC ---
ED HPI GENERAL MEDICAL PROBLEM - General Chief Complaint: Cardiovascular Problem Stated Complaint: [facility] Time Seen by Provider: 07/01/17 09:17 Source of Information: Reports: Patient, EMS, Family, [facility] Records, RN Notes Reviewed - History of Present Illness INITIAL COMMENTS - FREE TEXT/NARRATIVE: 87-year-old male has been brought here by [facility] for evaluation of hypotension. He does have history of hypertension, chronic CHF, chronic pulmonary disease as well as other cold morbidities. He had been admitted into the hospital a couple of months ago for pneumonia and then more recently for severe low back pain, congestive heart failure. Discharged 2 days ago and apparently at that time not well enough to manage at home, just admitted to [facility]. Blood pressure this morning has been running in the 80s systolic. He has no chest pain or difficulty breathing. He is on chronic O2 in the 2-3 L range. He denies abdominal pain at this time. There's been no nausea or vomiting. However it sounds like long term staff has had him on fluid restriction due to his past history of congestive heart failure. Also we have found out they did hold all of his meds this morning other than Tylenol so he did not get any of his diabetic or other scheduled medications. - Related Data Allergies Allergy/AdvReac Type Severity Reaction Status Date / Time hydromorphone [From Dilaudid] Allergy Rash Verified 07/01/17 09:16 Penicillins Allergy Rash Verified 07/01/17 09:16 IV dye Allergy Hives Uncoded 06/19/17 21:19 Home Meds: Home Meds Losartan [Cozaar] 25 mg PO DAILY 04/28/14 [History] Metoprolol Succinate [Toprol XL] 50 mg PO DAILY 04/28/14 [History] Multivitamin [Multi-Vitamin Daily] 1 tab PO DAILY 04/28/14 [History] Cambridge-3 Fatty Acids [Cambridge-3] 1,000 mg PO DAILY 04/28/14 [History] Simvastatin [Zocor] 40 mg PO BEDTIME 04/28/14 [History] SitaGLIPtin [Januvia] 100 mg PO DAILY 04/28/14 [History] metFORMIN HCl [Fortamet] 1,000 mg PO BID 04/28/14 [History] Acetaminophen [Tylenol Extra Strength] 500 mg PO Q6HR PRN 05/10/17 [History] Brimonidine [Alphagan P 0.15% Ophth Soln] 1 drop EYEBOTH BID 05/10/17 [History] Carboxymethylcellulos/Glycerin [Eq Lubricating Eye Drops] 1 drop EYEBOTH BID [History] Nitroglycerin [Nitrostat] 0.4 mg SL Q5M PRN 05/10/17 [History] glipiZIDE [Glucotrol] 10 mg PO DAILY 05/10/17 [History] Magnesium Oxide 400 mg PO BID #60 tablet 05/17/17 [Rx] Nicotine [Habitrol] 7 mg TRDERM DAILY 06/19/17 [History] Roflumilast [Daliresp] 500 mcg PO DAILY 06/19/17 [History] Benzonatate [Tessalon Perles] 100 mg PO BID #60 cap 06/29/17 [Rx] Dextromethorphan/guaiFENesin [Robitussin DM] 10 ml PO ASDIRECTED PRN #1 cup 05/06 [Rx] QUEtiapine [SEROquel] 12.5 mg PO BEDTIME PRN #30 tablet 06/29/17 [Rx] Azithromycin [Zithromax] 250 mg PO ASDIRECTED 07/01/17 [History] LORazepam 0.5 mg PO BEDTIME 07/01/17 [History] Levalbuterol HCl [Xopenex] 0.63 mg IH Q6H 07/01/17 [History] Oxygen 4 liter EMELY ASDIRECTED PRN 07/01/17 [History] Past Medical History HEENT History: Reports: Hard of Hearing, Impaired Vision Other HEENT History: corrected with glasses and PATRICIA Cardiovascular History: Reports: CAD, Heart Failure, High Cholesterol, Hypertension, SOB on Exertion, Stents, Other (See Below) Other Cardiovascular History: cardiomegaly Respiratory History: Reports: Bronchitis, Recurrent, COPD, Pneumonia, Recurrent , SOB Other Respiratory History: hypoxia, chronic oxygen use 3-4 liters per NC Musculoskeletal History: Reports: Arthritis Neurological History: Reports: Concussion Psychiatric History: Reports: Other (See Below) Other Psychiatric History: claustrophobia Endocrine/Metabolic History: Reports: Diabetes, Type II - Infectious Disease History Infectious Disease History: Reports: Chicken Pox, Mumps, Rubella - Past Surgical History HEENT Surgical History: Reports: Cataract Surgery Cardiovascular Surgical History: Reports: Coronary Artery Bypass Musculoskeletal Surgical History: Reports: None Social & Family History - Family History Family Medical History: Noncontributory - Tobacco Use Smoking Status *Q: Former Smoker Years of Tobacco use: 45 Packs/Tins Daily: 0.2 Used Tobacco, but Quit: Yes Month Tobacco Last Used: few months ago Second Hand Smoke Exposure: No - Caffeine Use Caffeine Use: Reports: Coffee Other Caffeine Use: 2 cups/day - Alcohol Use Days Per Week of Alcohol Use: 0 - Recreational Drug Use Recreational Drug Use: No - Living Situation & Occupation Living situation: Reports: Extended Care Facility Occupation: Retired (Lives at [facility] ED ROS GENERAL - Review of Systems Review Of Systems: See Below Constitutional: Denies: Fever, Chills, Diaphoresis HEENT: Denies: Rhinitis, Sinus Problem, Throat Pain Respiratory: Reports: Cough, Sputum. Denies: Shortness of Breath, Hemoptysis ( Very occasional) Cardiovascular: Reports: Lightheadedness. Denies: Chest Pain GI/Abdominal: Denies: Abdominal Pain (When standing), Diarrhea, Nausea, Vomiting Musculoskeletal: Reports: Back Pain (Chronic low back pain), Joint Pain ( Chronic arthritic pain multiple joints) Skin: Denies: Rash Neurological: Reports: Dizziness, Weakness (Mild generalized). Denies: Trouble Speaking (When standing) ED EXAM, GENERAL - Physical Exam Exam: See Below General Appearance: Alert, No Apparent Distress Eye Exam: Bilateral Eye: PERRL Throat/Mouth: Other Head: Atraumatic (Oral mucosa is dry). No: Facial Swelling Neck: Supple, Full Range of Motion, Other (No JVD) Respiratory/Chest: Respiratory Distress, Rhonchi (Mild tachypnea mild bilateral) Cardiovascular: Regular Rate, Rhythm, Systolic Murmur GI/Abdominal: Soft, Non-Tender. No: Guarding Back Exam: No: CVA Tenderness (L), CVA Tenderness (R) Extremities: No: Pedal Edema, Leg Pain Neurological: Alert, Oriented, No Motor/Sensory Deficits Skin Exam: Warm, Dry, Normal Color EKG INTERPRETATION EKG Date: 07/01/17 Rhythm: NSR [place]: Normal P-Wave: Present QRS: Other (Q waves present inferior leads) ST-T: Normal (Slight ST elevation in leads 2 and lead 3) Course - Vital Signs Last Recorded V/S: Last Vital Signs Temp 98.4 F 07/01/17 09:10 Pulse 86 07/01/17 09:10 Resp 19 07/01/17 09:10 BP 89/49 L 07/01/17 09:10 Pulse Ox 95 07/01/17 09:10 - Orders/Labs/Meds Orders: Active Orders 24 hr Category Date Time Status EKG 12 Lead [EKG Documentation Completion] [] STAT Care 07/01/17 09:21 Active POC Glucose [Blood Glucose Check, Bedside] [] ONETIME Care 07/01/17 11:28 Active Peripheral IV Care [RC] . DIRECTED Care 07/01/17 09:21 Active Chest 1V Frontal [CR] Stat Exams 07/01/17 09:34 Taken Sodium Chloride 0.9% [Saline Flush] Med 07/01/17 09:21 Active 10 ml FLUSH ASDIRECTED PRN Peripheral IV Insertion Adult [OM.PC] Stat Oth 07/01/17 09:21 Ordered Medication Orders Sodium Chloride (Saline Flush) 10 ml FLUSH ASDIRECTED PRN PRN Reason: Keep Vein Open Last Admin: 07/01/17 10:07 Dose: 10 ml Labs: Laboratory Tests 07/01/17 07/01/17 07/01/17 Range/Units 10:05 10:05 10:05 WBC 9.43 H (4.23-9.07) K/mm3 RBC 3.10 L (4.63-6.08) M/mm3 Hgb 9.3 L (13.7-17.5) gm/L Hct 30.0 L (40.1-51.0) % MCV 96.8 H (79.0-92.2) fl MCH 30.0 (25.7-32.2) pg MCHC 31.0 L (32.2-35.5) g/dl RDW Std Deviation 48.6 H (35.1-43.9) fL Plt Count 294 (163-337) K/mm3 MPV 9.1 L (9.4-12.3) fl Neut % (Auto) 78.1 H (34.0-67.9) % Lymph % (Auto) 10.9 L (21.8-53.1) % [place] % (Auto) 9.5 (5.3-12.2) % Eos % (Auto) 0.7 L (0.8-7.0) Baso % (Auto) 0.2 (0.1-1.2) % Neut # (Auto) 7.35 H (1.78-5.38) K/mm3 Lymph # (Auto) 1.03 L (1.32-3.57) K/mm3 [place] # (Auto) 0.90 H (0.30-0.82) K/mm3 Eos # (Auto) 0.07 (0.04-0.54) K/mm3 Baso # (Auto) 0.02 (0.01-0.08) K/mm3 Manual Slide Review Not Reportable Sodium 133 L (136-145) mEq/L Potassium 4.6 (3.5-5.1) mEq/L Chloride 98 (98-107) mEq/L Carbon Dioxide 26 (21-32) mEq/L Anion Gap 13.6 (5-15) BUN 44 H (7-18) mg/dL Creatinine 2.2 H (0.7-1.3) mg/dL Est Cr Clr Drug Dosing 24.10 mL/min Estimated GFR (MDRD) 29 (>60) mL/min BUN/Creatinine Ratio 20.0 H (14-18) Glucose 297 H (83-115) mg/dL Calcium 9.0 (8.5-10.1) mg/dL Total Bilirubin 0.3 (0.2-1.0) mg/dL AST 30 (15-37) U/L ALT 39 (16-63) U/L Alkaline Phosphatase 311 H (46-116) U/L Troponin I < 0.017 (0.00-0.056) ng/mL NT-Pro-B Natriuret Pep 9860 H (0-450) pg/mL Total Protein 6.4 (6.4-8.2) g/dl Albumin 1.7 L (3.4-5.0) g/dl Globulin 4.7 gm/dL Albumin/Globulin Ratio 0.4 L (1-2) Meds: Medications Generic Name Dose Route Start Last Admin Trade Name Freq PRN Reason Stop Dose Admin Sodium Chloride 10 ml 07/01/17 09:21 07/01/17 10:07 Saline Flush FLUSH 10 ml ASDIRECTED PRN Administration Keep Vein Open Discontinued Medications Generic Name Dose Route Start Last Admin Trade Name Adrián PRN Reason Stop Dose Admin Sodium Chloride 200 mls @ 999 mls/hr 07/01/17 11:27 Normal Saline IV 07/01/17 11:39 .BOLUS ONE - Re-Assessments/Exams Free Text/Narrative Re-Assessment/Exam: 07/01/17 11:12. Initial bedside glucose 319. Lab glucose 297. Creatinine is jumped from 1.0 on discharge 2 days ago to 2.2. Blood pressures been running in the upper 80s to mid 90s systolic with a more recent reading of 112/77 after receiving part of a careful 200 mL fluid bolus. He's been resting comfortably. He has been able to drink some fluid. I did discuss with family option of going back into the hospital for further treatment, medication adjustment or working with this back at the long term. They would like for him to go back. I discussed this with Dr. Coyle. Multiple changes will be made to be documented in discharge instructions. Departure - Departure Time of Disposition: 12:06 Disposition: Home, Self-Care 01 Condition: Fair Clinical Impression: Renal insufficiency, Dehydration, Hyperglycemia Hypotension Qualifiers: Hypotension type: unspecified hypotension type Qualified Code(s): I95.9 - Hypotension, unspecified Referrals: Moo Coyle MD [Primary Care Provider] - Additional Instructions: Hold his blood pressure meds, Cozaar and Toprol today and tomorrow. Stop his metformin and Seroquel. Give his Januvia and glipizide when he gets back to the long term. Dr Coyle would like a weight checked on arrival back to the long term and to be called for any weight gain more than 2 pounds. He would also like to have him started on sliding scale insulin 4 units regular insulin subcutaneous for glucose of 150-200, 6 units regular insulin for glucose 200-250 , 8 units regular insulin for glucose 250-300, 10 units regular insulin for glucose of 300-400. Check glucose 1 hour before all meals and at bedtime, call Dr. Coyle for any glucose greater than 400. Return to ED as needed. - My Orders Last 24 Hours: My Active Orders 07/01/17 09:21 EKG 12 Lead [EKG Documentation Completion] [RC] STAT Peripheral IV Care [RC] . DIRECTED Sodium Chloride 0.9% [Saline Flush] 10 ml FLUSH ASDIRECTED PRN Peripheral IV Insertion Adult [OM.PC] Stat 07/01/17 09:34 Chest 1V Frontal [CR] Stat 07/01/17 11:28 POC Glucose [Blood Glucose Check, Bedside] [RC] ONETIME - Assessment/Plan Last 24 Hours: My Active Orders 07/01/17 09:21 EKG 12 Lead [EKG Documentation Completion] [RC] STAT Peripheral IV Care [RC] . DIRECTED Sodium Chloride 0.9% [Saline Flush] 10 ml FLUSH ASDIRECTED PRN Peripheral IV Insertion Adult [OM.PC] Stat 07/01/17 09:34 Chest 1V Frontal [CR] Stat 07/01/17 11:28 POC Glucose [Blood Glucose Check, Bedside] [RC] ONETIME
--- NOTE | 2017-07-01 13:43 | CR ---
Chest: Portable view of the chest is obtained. Comparison: Prior chest x-ray of 06/26/17. Diffuse interstitial change is seen. Findings are stable from prior exam. Pleural thickening is noted within the lateral left costophrenic angle which is stable. Pleural calcification is noted within the right lateral costophrenic angle also felt to be stable. Lungs are hyperinflated compatible with emphysematous change. Heart is enlarged. Previous sternotomy is noted. Bony structures are grossly intact. Impression: 1. Multiple findings. No significant change is appreciated from prior chest x-ray. Diagnostic code #3
== END 2017-07-01 12:15 | disposition home or self-care (01) ==
LOC: SUPCPDRO 09:01 → JD.ED 09:01
DX: I95.9 Hypotension, unspecified (principal); E86.0 Dehydration; N28.9 Disorder of kidney and ureter, unspecified; E11.65 Type 2 diabetes mellitus with hyperglycemia; I11.0 Hypertensive heart disease with heart failure; I50.9 Heart failure, unspecified; I25.10 Atherosclerotic heart disease of native coronary artery without angina pectoris; E78.00 Pure hypercholesterolemia, unspecified; J44.9 Chronic obstructive pulmonary disease, unspecified; Z95.1 Presence of aortocoronary bypass graft; Z87.891 Personal history of nicotine dependence; Z79.84 Long term (current) use of oral hypoglycemic drugs; Z79.899 Other long term (current) drug therapy; Z88.0 Allergy status to penicillin; Z88.5 Allergy status to narcotic agent; Z91.041 Radiographic dye allergy status; Z99.81 Dependence on supplemental oxygen
CPT/HCPCS: 36415; 71045; 80053; 82962; 83880; 84484; 85025; 93005; 96372; 99285; J1817; J7040; J7050; 93010; 99284

== ENCOUNTER 2018-08-08 09:18 | Inpatient (IN) | payer MEDICARE, OTHER ==
[2018-08-08] MEDS ORDERED: Sodium Chloride 0.9% 10 ML Syringe FLUSH PRN (09:27)
[2018-08-08] MEDS ORDERED: Sodium Chloride 0.9% 500 ML IV SCH (09:30)
[2018-08-08] MEDS ORDERED: Albuterol/Ipratropium 3.0-0.5 MG/3 ML Neb Soln NEB ONE (09:30)
--- NOTE | 2018-08-08 10:14 | CR ---
Chest: Frontal view of the chest was obtained. Comparison: Prior chest x-ray of 07/01/17. Heart is slightly enlarged. Lung markings are slightly increased which appear chronic. No acute parenchymal change is seen. Bony structures are grossly intact. Previous sternotomy is noted. Impression: 1. Cardiomegaly. Other incidental findings. Nothing acute is seen. Diagnostic code #2
[2018-08-08] MEDS ORDERED: cefTRIAXone 2 GM in Sodium Chloride 0.9% 100 ML IV ONE ×2 (11:30→11:49)
[2018-08-08] MEDS ORDERED: methylPREDNISolone Sodium Succinate 125 MG/2 ML SDV IVPUSH ONE (11:31)
--- NOTE | 2018-08-08 12:06 | EDM.PDOC ---
ED HPI GENERAL MEDICAL PROBLEM - General Chief Complaint: Syncope Stated Complaint: [facility] Time Seen by Provider: 08/08/18 09:27 Source of Information: Reports: Patient, Family, Provider History Limitations: Reports: No Limitations - History of Present Illness INITIAL COMMENTS - FREE TEXT/NARRATIVE: The patient has a history of diabetes, COPD and CAD. He went to see Dr Coyle today and he was weak and dizzy. They checked his blood pressure and it was low at 70/40. An IV was started. He also had harsh lung sounds. He did labs a few days ago and they looked good. The patient complains of shortness of breath and he has a cough. Last night the cough was worse. He does not feel like he has a fever. Onset: Gradual Duration: Day(s): Severity: Moderate Improves with: Reports: None Worsens with: Reports: None Associated Symptoms: Reports: Cough, cough w sputum, Shortness of Breath. Denies: Chest Pain, Fever/Chills, Headaches, Nausea/Vomiting Neck Pain Score (Numeric/FACES): 7 - Related Data Allergies Allergy/AdvReac Type Severity Reaction Status Date / Time hydromorphone [From Dilaudid] Allergy Rash Verified 08/08/18 09:32 Penicillins Allergy Rash Verified 08/08/18 09:32 IV dye Allergy Hives Uncoded 08/08/18 09:32 Home Meds: Home Meds Metoprolol Succinate [Toprol XL] 25 mg PO DAILY 04/28/14 [History] Oliver-3 Fatty Acids [Oliver-3] 1,000 mg PO DAILY 04/28/14 [History] Simvastatin [Zocor] 40 mg PO BEDTIME 04/28/14 [History] SitaGLIPtin [Januvia] 100 mg PO DAILY 04/28/14 [History] Brimonidine [Alphagan P 0.15% Ophth Soln] 1 drop EYEBOTH BID 05/10/17 [History] Carboxymethylcellulos/Glycerin [Eq Lubricating Eye Drops] 1 drop EYEBOTH BID [History] Nitroglycerin [Nitrostat] 0.4 mg SL Q5M PRN 05/10/17 [History] glipiZIDE [Glucotrol] 10 mg PO DAILY 05/10/17 [History] Magnesium Oxide 400 mg PO BID #60 tablet 05/17/17 [Rx] Nicotine [Habitrol] 7 mg TRDERM DAILY 06/19/17 [History] Roflumilast [Daliresp] 500 mcg PO DAILY 06/19/17 [History] Benzonatate [Tessalon Perles] 100 mg PO BID #60 cap 06/29/17 [Rx] Dextromethorphan/guaiFENesin [Robitussin DM] 10 ml PO ASDIRECTED PRN #1 cup 05/06 [Rx] Oxygen 3 liter EMELY ASDIRECTED PRN 07/01/17 [History] Acetaminophen [Tylenol] 325 mg PO Q6H PRN 08/08/18 [History] Aspirin [Ecotrin] 81 mg PO DAILY 08/08/18 [History] Celecoxib [CeleBREX] 200 mg PO DAILY 08/08/18 [History] Furosemide [Lasix] 20 mg PO DAILY 08/08/18 [History] Ibuprofen 400 mg PO BID 08/08/18 [History] Insulin Glarg,Human.Rec.Analog [Lantus Solostar] 15 unit SQ DAILY 08/08/18 [ History] Lactose-Reduced Food [Ensure Active Clear] 4 oz PO BID 08/08/18 [History] Levalbuterol HCl [Xopenex] 1.25 mg NEB TID PRN 08/08/18 [History] Losartan [Cozaar] 25 mg PO DAILY 08/08/18 [History] Melatonin 2 mg PO BEDTIME 08/08/18 [History] Multivitamin with Minerals [Multiple Vitamin] 1 tab PO DAILY 08/08/18 [History] Sertraline [Zoloft] 50 mg PO DAILY 08/08/18 [History] Sodium Chloride 7% [HyperSal 7%] 4 ml NEB DAILY 08/08/18 [History] guaiFENesin [Mucinex] 600 mg PO BID 08/08/18 [History] traMADol [Ultram] 50 mg PO QID PRN 08/08/18 [History] Past Medical History HEENT History: Reports: Hard of Hearing, Impaired Vision Other HEENT History: corrected with glasses and PATRICIA Cardiovascular History: Reports: CAD, Heart Failure, High Cholesterol, Hypertension, SOB on Exertion, Stents, Other (See Below) Other Cardiovascular History: cardiomegaly Respiratory History: Reports: Bronchitis, Recurrent, COPD, Pneumonia, Recurrent , SOB Other Respiratory History: hypoxia, chronic oxygen use 3-4 liters per [place] Genitourinary History: Reports: Urinary Incontinence Musculoskeletal History: Reports: Arthritis Neurological History: Reports: Concussion Psychiatric History: Reports: Other (See Below) Other Psychiatric History: claustrophobia Endocrine/Metabolic History: Reports: Diabetes, Type II - Infectious Disease History Infectious Disease History: Reports: Chicken Pox, Mumps, Rubella - Past Surgical History HEENT Surgical History: Reports: Cataract Surgery Cardiovascular Surgical History: Reports: Coronary Artery Bypass Musculoskeletal Surgical History: Reports: None Social & Family History - Family History Family Medical History: Noncontributory - Tobacco Use Smoking Status *Q: Former Smoker Years of Tobacco use: 50 Packs/Tins Daily: 1 Used Tobacco, but Quit: Yes Month/Year Tobacco Last Used: Jun 2018 - Caffeine Use Caffeine Use: Reports: Coffee Other Caffeine Use: 2 cups/day - Recreational Drug Use Recreational Drug Use: No - Living Situation & Occupation Living situation: Reports: Extended Care Facility Occupation: Retired (Lives at [facility].) ED ROS GENERAL - Review of Systems Review Of Systems: See Below Constitutional: Reports: No Symptoms HEENT: Reports: No Symptoms Respiratory: Reports: Shortness of Breath, Cough Cardiovascular: Reports: No Symptoms Endocrine: Reports: No Symptoms GI/Abdominal: Reports: No Symptoms : Reports: No Symptoms Musculoskeletal: Reports: No Symptoms ED EXAM, DIZZINESS - Physical Exam Exam: See Below Exam Limited By: No Limitations General Appearance: Alert, No Apparent Distress Nose: Normal Inspection Head Exam: Atraumatic, Normocephalic Neck: Normal Inspection, Supple, Non-Tender Respiratory/Chest: No Respiratory Distress, Decreased Breath Sounds, Rhonchi, Wheezing Cardiovascular: Regular Rate, Rhythm, No Edema, No Murmur GI/Abdominal: Soft, Non-Tender, No Organomegaly, No Mass Neurological: Alert, No Motor/Sensory Deficits, Oriented x 3 EKG INTERPRETATION EKG Date: 08/08/18 Time: 09:48 Rhythm: NSR Rate (Beats/Min): 78 [place]: LAD-Left [place] Deviation P-Wave: Present QRS: RBBB ST-T: Normal QT: Normal EKG Interpretation Comments: Q waves in the inferior leads Course - Vital Signs Last Recorded V/S: Last Vital Signs Temp 97.3 F 08/08/18 09:18 Pulse 72 08/08/18 09:18 Resp 18 08/08/18 09:18 BP 84/23 L 08/08/18 09:18 Pulse Ox 98 08/08/18 10:04 - Orders/Labs/Meds Orders: Active Orders 24 hr Category Date Time Status Cardiac Monitoring [RC] . DIRECTED Care 08/08/18 09:28 Active EKG Documentation Completion [RC] STAT Care 08/08/18 09:30 Active Oxygen Therapy [RC] PRN Care 08/08/18 09:28 Active Peripheral IV Care [RC] . DIRECTED Care 08/08/18 09:29 Active RT Aerosol Therapy [RC] ASDIRECTED Care 08/08/18 09:30 Active CULTURE BLOOD [BC] Stat Lab 08/08/18 11:47 Received CULTURE BLOOD [BC] Stat Lab 08/08/18 11:54 Received Sodium Chloride 0.9% [Normal Saline] 500 ml Med 08/08/18 09:30 Active IV .BOLUS Sodium Chloride 0.9% [Saline Flush] Med 08/08/18 09:27 Active 10 ml FLUSH ASDIRECTED PRN Blood Culture x2 Reflex Set [OM.PC] Stat Oth 08/08/18 11:29 Ordered Peripheral IV Insertion Adult [OM.PC] Stat Oth 08/08/18 09:27 Ordered Medication Orders Sodium Chloride (Normal Saline) 500 mls @ 1,000 mls/hr IV .BOLUS MARGOT Last Admin: 08/08/18 09:20 Dose: 1,000 mls/hr Sodium Chloride (Saline Flush) 10 ml FLUSH ASDIRECTED PRN PRN Reason: Keep Vein Open Last Admin: 08/08/18 09:18 Dose: 10 ml Labs: Laboratory Tests 08/08/18 08/08/18 08/08/18 Range/Units 09:42 09:42 09:42 WBC 16.96 H (4.23-9.07) K/mm3 RBC 2.90 L (4.63-6.08) M/mm3 Hgb 8.9 L (13.7-17.5) gm/L Hct 28.3 L (40.1-51.0) % MCV 97.6 H (79.0-92.2) fl MCH 30.7 (25.7-32.2) pg MCHC 31.4 L (32.2-35.5) g/dl RDW Std Deviation 43.4 (35.1-43.9) fL Plt Count 195 (163-337) K/mm3 MPV 9.3 L (9.4-12.3) fl Neut % (Auto) 88.8 H (34.0-67.9) % Lymph % (Auto) 5.1 L (21.8-53.1) % [place] % (Auto) 5.8 (5.3-12.2) % Eos % (Auto) 0 L (0.8-7.0) Baso % (Auto) 0.1 (0.1-1.2) % Neut # (Auto) 15.07 H (1.78-5.38) K/mm3 Lymph # (Auto) 0.86 L (1.32-3.57) K/mm3 [place] # (Auto) 0.98 H (0.30-0.82) K/mm3 Eos # (Auto) 0.00 L (0.04-0.54) K/mm3 Baso # (Auto) 0.01 (0.01-0.08) K/mm3 Manual Slide Review Abnormal smear Sodium 138 (136-145) mEq/L Potassium 4.3 (3.5-5.1) mEq/L Chloride 103 (98-107) mEq/L Carbon Dioxide 29 (21-32) mEq/L Anion Gap 10.3 (5-15) BUN 18 (7-18) mg/dL Creatinine 1.4 H (0.7-1.3) mg/dL Est Cr Clr Drug Dosing 38.38 mL/min Estimated GFR (MDRD) 48 (>60) mL/min BUN/Creatinine Ratio 12.9 L (14-18) Glucose 295 H (83-115) mg/dL Lactic Acid (0.4-2.0) mmol/L Calcium 8.3 L (8.5-10.1) mg/dL Total Bilirubin 0.5 (0.2-1.0) mg/dL AST 33 (15-37) U/L ALT 53 (16-63) U/L Alkaline Phosphatase 245 H (46-116) U/L Troponin I 0.025 (0.00-0.056) ng/mL NT-Pro-B Natriuret Pep 5906 H (0-450) pg/mL Total Protein 5.8 L (6.4-8.2) g/dl Albumin 2.1 L (3.4-5.0) g/dl Globulin 3.7 gm/dL Albumin/Globulin Ratio 0.6 L (1-2) Mycoplasma pneumon IgM (NEGATIVE) 08/08/18 08/08/18 Range/Units 09:42 11:47 WBC (4.23-9.07) K/mm3 RBC (4.63-6.08) M/mm3 Hgb (13.7-17.5) gm/L Hct (40.1-51.0) % MCV (79.0-92.2) fl MCH (25.7-32.2) pg MCHC (32.2-35.5) g/dl RDW Std Deviation (35.1-43.9) fL Plt Count (163-337) K/mm3 MPV (9.4-12.3) fl Neut % (Auto) (34.0-67.9) % Lymph % (Auto) (21.8-53.1) % [place] % (Auto) (5.3-12.2) % Eos % (Auto) (0.8-7.0) Baso % (Auto) (0.1-1.2) % Neut # (Auto) (1.78-5.38) K/mm3 Lymph # (Auto) (1.32-3.57) K/mm3 [place] # (Auto) (0.30-0.82) K/mm3 Eos # (Auto) (0.04-0.54) K/mm3 Baso # (Auto) (0.01-0.08) K/mm3 Manual Slide Review Sodium (136-145) mEq/L Potassium (3.5-5.1) mEq/L Chloride (98-107) mEq/L Carbon Dioxide (21-32) mEq/L Anion Gap (5-15) BUN (7-18) mg/dL Creatinine (0.7-1.3) mg/dL Est Cr Clr Drug Dosing mL/min Estimated GFR (MDRD) (>60) mL/min BUN/Creatinine Ratio (14-18) Glucose (83-115) mg/dL Lactic Acid 2.1 H (0.4-2.0) mmol/L Calcium (8.5-10.1) mg/dL Total Bilirubin (0.2-1.0) mg/dL AST (15-37) U/L ALT (16-63) U/L Alkaline Phosphatase (46-116) U/L Troponin I (0.00-0.056) ng/mL NT-Pro-B Natriuret Pep (0-450) pg/mL Total Protein (6.4-8.2) g/dl Albumin (3.4-5.0) g/dl Globulin gm/dL Albumin/Globulin Ratio (1-2) Mycoplasma pneumon IgM Negative (NEGATIVE) Meds: Medications Generic Name Dose Route Start Last Admin Trade Name Freq PRN Reason Stop Dose Admin Sodium Chloride 500 mls @ 1,000 mls/hr 08/08/18 09:30 08/08/18 09:20 Normal Saline IV 1,000 mls/hr .BOLUS MARGOT Administration Sodium Chloride 10 ml 08/08/18 09:27 08/08/18 09:18 Saline Flush FLUSH 10 ml ASDIRECTED PRN Administration Keep Vein Open Discontinued Medications Generic Name Dose Route Start Last Admin Trade Name Freq PRN Reason Stop Dose Admin Albuterol/Ipratropium 3 ml 08/08/18 09:30 08/08/18 10:03 Duoneb 3.0-0.5 Mg/3 Ml NEB 08/08/18 09:31 3 ml ONETIME ONE Administration Ceftriaxone Sodium 2 gm/ 100 mls @ 200 mls/hr 08/08/18 11:30 08/08/18 12:42 Sodium Chloride IV 08/08/18 11:59 Not Given ONETIME ONE Ceftriaxone Sodium 2 gm/ 100 mls @ 200 mls/hr 08/08/18 11:49 08/08/18 11:54 Sodium Chloride IV 08/08/18 12:18 200 mls/hr ONETIME ONE Administration Methylprednisolone Sodium Succinate 125 mg 08/08/18 11:31 08/08/18 11:56 Solu-Medrol IVPUSH 08/08/18 11:32 125 mg ONETIME ONE Administration - Re-Assessments/Exams Free Text/Narrative Re-Assessment/Exam: 08/08/18 12:08 His blood pressure was still in the 70s. I ordered another 500ml bolus, EKG, CXR, labs and duoneb. His CXR shows cardiomegaly and nothing acute is seen. His EKG shows a NSR with RBBB with Q waves in the inferior leads. His WBC was elevated at 16.9. His Hgb was low at 8.9. His creatinine was elevated at 1.4. His glucose is elevated at 295. His alk phos is elevated at 245. His troponin is normal. His BNP is elevated at 5,906. I know his CXR does not show an infiltrate at this time but I am concerned he has a pneumonia. His WBC is elevated and he has been coughing. I have ordered blood cultures, lactic acid, rocephin 2 grams IV and solu-medrol for his breathing. I feel he needs to be admitted. 08/08/18 13:[address] Nieto and he agreed to the admission. Departure - Departure Time of Disposition: 13:10 Disposition: Admitted As Inpatient 67 Condition: Poor Clinical Impression: CHF, Congestive heart failure Hypotension Qualifiers: Hypotension type: unspecified hypotension type Qualified Code(s): I95.9 - Hypotension, unspecified Pneumonia Qualifiers: Pneumonia type: due to unspecified organism Laterality: left Lung location: lower lobe of lung Qualified Code(s): J18.1 - Lobar pneumonia, unspecified organism CAD (coronary artery disease) Qualifiers: Coronary Disease-Associated Artery/Lesion type: unspecified vessel or lesion type [place] vs. transplanted heart: [place] heart Associated angina: angina presence unspecified Qualified Code(s): I25.10 - Atherosclerotic heart disease of [place] coronary artery without angina pectoris - Discharge Information Referrals: Moo Coyle MD [Primary Care Provider] - Forms: ED Department Discharge - My Orders Last 24 Hours: My Active Orders 08/08/18 09:27 Sodium Chloride 0.9% [Saline Flush] 10 ml FLUSH ASDIRECTED PRN Peripheral IV Insertion Adult [OM.PC] Stat 08/08/18 09:28 Cardiac Monitoring [RC] . DIRECTED Oxygen Therapy [RC] PRN 08/08/18 09:29 Peripheral IV Care [RC] . DIRECTED 08/08/18 09:30 EKG Documentation Completion [RC] STAT RT Aerosol Therapy [RC] ASDIRECTED Sodium Chloride 0.9% [Normal Saline] 500 ml IV .BOLUS 08/08/18 11:29 Blood Culture x2 Reflex Set [OM.PC] Stat 08/08/18 11:47 CULTURE BLOOD [BC] Stat 08/08/18 11:54 CULTURE BLOOD [BC] Stat - Assessment/Plan Last 24 Hours: My Active Orders 08/08/18 09:27 Sodium Chloride 0.9% [Saline Flush] 10 ml FLUSH ASDIRECTED PRN Peripheral IV Insertion Adult [OM.PC] Stat 08/08/18 09:28 Cardiac Monitoring [RC] . DIRECTED Oxygen Therapy [RC] PRN 08/08/18 09:29 Peripheral IV Care [RC] . DIRECTED 08/08/18 09:30 EKG Documentation Completion [RC] STAT RT Aerosol Therapy [RC] ASDIRECTED Sodium Chloride 0.9% [Normal Saline] 500 ml IV .BOLUS 08/08/18 11:29 Blood Culture x2 Reflex Set [OM.PC] Stat 08/08/18 11:47 CULTURE BLOOD [BC] Stat 08/08/18 11:54 CULTURE BLOOD [BC] Stat
--- NOTE | 2018-08-08 15:56 | PCM.HP ---
H&P History of Present Illness - General Date of Service: 08/08/18 Admit Problem/Dx: Admission Diagnosis/Problem Admission Diagnosis/Problem Pneumonia Source of Information: Patient, Provider History Limitations: Reports: No Limitations - History of Present Illness Initial Comments - Free Text/Narative: This is an 88 yo male with past medical h/o HTN, HLD, CAD s/p CABG and stents, CHF, SOB on exertion, Cardiomegaly, DM2, Recurrent Bronchitis/PNA, COPD, Hypoxia on 3-4L O2 chronically, Urinary incontinence who comes in for possible Bronchitis vs. PNA and hypotension. Was seen at clinic today by PCP and c/o being weak, dizzy, w/ SOB and cough x 1 day. He denies F/C, chest pain, abdominal pain, N/V/D, or other GI/ symptoms. His initial workup in the ED shows a CBC remarkable for WBC 16.96, RBC 2.9, Hgb 8.9, Hct 28.3, MCV 97.6, MCHC 31.4, MPV 9.3, Neut 88.8%, Lymph 5.1%. His chemistry is remarkable for Cr 1.4, GFR 48, Glu 295, LA 2.1, Ca 8.3, Alk Phos 245, BNP 5906, Protein 5.8, Albumin 2.1. Temperature 97.3. BP 84/23. Mycoplasma negative. He is subsequently admitted to the medical floor. He is a DNR/DNI. PCP is Dr. Coyle. Neck Pain Score (Numeric/FACES): 7 - Related Data Allergies/Adverse Reactions: Allergies Allergy/AdvReac Type Severity Reaction Status Date / Time hydromorphone [From Dilaudid] Allergy Rash Verified 08/08/18 09:32 Penicillins Allergy Rash Verified 08/08/18 09:32 IV dye Allergy Hives Uncoded 08/08/18 09:32 Home Medications: Home Meds Metoprolol Succinate [Toprol XL] 25 mg PO DAILY 04/28/14 [History] [place]-3 Fatty Acids [Hampden-3] 1,000 mg PO DAILY 04/28/14 [History] Simvastatin [Zocor] 40 mg PO BEDTIME 04/28/14 [History] SitaGLIPtin [Januvia] 100 mg PO DAILY 04/28/14 [History] Brimonidine [Alphagan P 0.15% Ophth Soln] 1 drop EYEBOTH BID 05/10/17 [History] Carboxymethylcellulos/Glycerin [Eq Lubricating Eye Drops] 1 drop EYEBOTH BID [History] Nitroglycerin [Nitrostat] 0.4 mg SL Q5M PRN 05/10/17 [History] glipiZIDE [Glucotrol] 10 mg PO DAILY 05/10/17 [History] Magnesium Oxide 400 mg PO BID #60 tablet 05/17/17 [Rx] Nicotine [Habitrol] 7 mg TRDERM DAILY 06/19/17 [History] Roflumilast [Daliresp] 500 mcg PO DAILY 06/19/17 [History] Benzonatate [Tessalon Perles] 100 mg PO BID #60 cap 06/29/17 [Rx] Dextromethorphan/guaiFENesin [Robitussin DM] 10 ml PO ASDIRECTED PRN #1 cup 05/06 [Rx] Oxygen 3 liter EMELY ASDIRECTED PRN 07/01/17 [History] Acetaminophen [Tylenol] 325 mg PO Q6H PRN 08/08/18 [History] Aspirin [Ecotrin] 81 mg PO DAILY 08/08/18 [History] Celecoxib [CeleBREX] 200 mg PO DAILY 08/08/18 [History] Furosemide [Lasix] 20 mg PO DAILY 08/08/18 [History] Ibuprofen 400 mg PO BID 08/08/18 [History] Insulin Glarg,Human.Rec.Analog [Lantus Solostar] 15 unit SQ DAILY 08/08/18 [ History] Lactose-Reduced Food [Ensure Active Clear] 4 oz PO BID 08/08/18 [History] Levalbuterol HCl [Xopenex] 1.25 mg NEB TID PRN 08/08/18 [History] Losartan [Cozaar] 25 mg PO DAILY 08/08/18 [History] Melatonin 2 mg PO BEDTIME 08/08/18 [History] Multivitamin with Minerals [Multiple Vitamin] 1 tab PO DAILY 08/08/18 [History] Sertraline [Zoloft] 50 mg PO DAILY 08/08/18 [History] Sodium Chloride 7% [HyperSal 7%] 4 ml NEB DAILY 08/08/18 [History] guaiFENesin [Mucinex] 600 mg PO BID 08/08/18 [History] traMADol [Ultram] 50 mg PO QID PRN 08/08/18 [History] Past Medical History HEENT History: Reports: Hard of Hearing, Impaired Vision Other HEENT History: corrected with glasses and PATRICIA Cardiovascular History: Reports: CAD, Heart Failure, High Cholesterol, Hypertension, SOB on Exertion, Stents, Other (See Below) Other Cardiovascular History: cardiomegaly Respiratory History: Reports: Bronchitis, Recurrent, COPD, Pneumonia, Recurrent , SOB Other Respiratory History: hypoxia, chronic oxygen use 3-4 liters per NC Genitourinary History: Reports: Urinary Incontinence Musculoskeletal History: Reports: Arthritis Neurological History: Reports: Concussion Psychiatric History: Reports: Dementia, Other (See Below) Other Psychiatric History: claustrophobia Endocrine/Metabolic History: Reports: Diabetes, Type II - Infectious Disease History Infectious Disease History: Reports: Chicken Pox, Measles, Mumps, Rubella - Past Surgical History HEENT Surgical History: Reports: Cataract Surgery Cardiovascular Surgical History: Reports: Coronary Artery Bypass Other Cardiovascular Surgeries/Procedures: CABGx3 15 yrs ago Respiratory Surgical History: Reports: None Male Surgical History: Reports: None Musculoskeletal Surgical History: Reports: None Social & Family History - Family History Family Medical History: Noncontributory - Tobacco Use Smoking Status *Q: Former Smoker Years of Tobacco use: 40 Packs/Tins Daily: 1 Used Tobacco, but Quit: Yes Month/Year Tobacco Last Used: 06/2018 Second Hand Smoke Exposure: No - Caffeine Use Caffeine Use: Reports: Coffee Other Caffeine Use: 2 cups/day - Alcohol Use Days Per Week of Alcohol Use: 1 Number of Drinks Per Day: 0 Total Drinks Per Week: 0 Date of Last Drink: 08/03/17 - Recreational Drug Use Recreational Drug Use: No - Living Situation & Occupation Living situation: Reports: Extended Care Facility Occupation: Retired (Lives at [facility].) H&P Review of Systems - Review of Systems: Review Of Systems: See Below General: Reports: No Symptoms. Denies: Fever, Chills HEENT: Reports: No Symptoms Pulmonary: Reports: Shortness of Breath, Wheezing, Cough, Sputum (brownish) Cardiovascular: Reports: Edema (1+ pitting bilaterally), Blood Pressure Problem. Denies: Chest Pain, Lightheadedness Gastrointestinal: Reports: No Symptoms. Denies: Abdominal Pain, Diarrhea, Nausea, Vomiting Genitourinary: Reports: No Symptoms Musculoskeletal: Reports: No Symptoms Skin: Reports: No Symptoms Psychiatric: Reports: No Symptoms. Denies: Confusion Neurological: Reports: No Symptoms. Denies: Confusion, Dizziness Hematologic/Lymphatic: Reports: No Symptoms Immunologic: Reports: No Symptoms Exam - Exam Exam: See Below - Vital Signs Vital Signs: Last Vital Signs Temp 97.3 F 08/08/18 09:18 Pulse 72 08/08/18 09:18 Resp 18 08/08/18 09:18 BP 84/23 L 08/08/18 09:18 Pulse Ox 98 08/08/18 10:04 Weight: 183 lb 4.8 oz - Exam Quality Assessment: Supplemental Oxygen (3L NC), DVT Prophylaxis General: Alert, Oriented, Cooperative, Mild Distress HEENT: Conjunctiva Clear, EACs Clear, EOMI, Hearing Intact, Mucosa Moist & Custar , Nares Patent, Normal Nasal Septum, Posterior Pharynx Clear, Glasses, PERRLA Neck: Supple, Trachea Midline, 2 Lungs: Normal Respiratory Effort, Decreased Breath Sounds, Rhonchi, Wheezing Cardiovascular: Regular Rate, Regular Rhythm GI/Abdominal Exam: Normal Bowel Sounds, Soft, Non-Tender, No Organomegaly, No Distention, No Abnormal Bruit, No Mass, Pelvis Stable (Male) Exam: Deferred Rectal (Males) Exam: Deferred Back Exam: Normal Inspection Extremities: Normal Inspection, Normal Range of Motion, Non-Tender, Normal Capillary Refill, Pedal Edema (1+ pitting bilaterally) Peripheral Pulses: 1+: Posterior Tibial (L), Posterior Tibial (R), Dorsalis Pedis (L), Dorsalis Pedis (R) Skin: Warm, Dry, Intact Neurological: Cranial Nerves Intact (grossly) Neuro Extensive - Mental Status: Alert, Oriented x3, Normal Mood/Affect, Normal Cognition Psychiatric: Alert, Normal Affect, Normal Mood - Patient Data Lab Results Last 24 hrs: Laboratory Results - last 24 hr 08/08/18 08/08/18 08/08/18 Range/Units 09:42 09:42 09:42 WBC 16.96 H (4.23-9.07) K/mm3 RBC 2.90 L (4.63-6.08) M/mm3 Hgb 8.9 L (13.7-17.5) gm/L Hct 28.3 L (40.1-51.0) % MCV 97.6 H (79.0-92.2) fl MCH 30.7 (25.7-32.2) pg MCHC 31.4 L (32.2-35.5) g/dl RDW Std Deviation 43.4 (35.1-43.9) fL Plt Count 195 (163-337) K/mm3 MPV 9.3 L (9.4-12.3) fl Neut % (Auto) 88.8 H (34.0-67.9) % Lymph % (Auto) 5.1 L (21.8-53.1) % Pitkin % (Auto) 5.8 (5.3-12.2) % Eos % (Auto) 0 L (0.8-7.0) Baso % (Auto) 0.1 (0.1-1.2) % Neut # (Auto) 15.07 H (1.78-5.38) K/mm3 Lymph # (Auto) 0.86 L (1.32-3.57) K/mm3 Pitkin # (Auto) 0.98 H (0.30-0.82) K/mm3 Eos # (Auto) 0.00 L (0.04-0.54) K/mm3 Baso # (Auto) 0.01 (0.01-0.08) K/mm3 Manual Slide Review Abnormal smear Sodium 138 (136-145) mEq/L Potassium 4.3 (3.5-5.1) mEq/L Chloride 103 (98-107) mEq/L Carbon Dioxide 29 (21-32) mEq/L Anion Gap 10.3 (5-15) BUN 18 (7-18) mg/dL Creatinine 1.4 H (0.7-1.3) mg/dL Est Cr Clr Drug Dosing 38.38 mL/min Estimated GFR (MDRD) 48 (>60) mL/min BUN/Creatinine Ratio 12.9 L (14-18) Glucose 295 H (83-115) mg/dL Lactic Acid (0.4-2.0) mmol/L Calcium 8.3 L (8.5-10.1) mg/dL Total Bilirubin 0.5 (0.2-1.0) mg/dL AST 33 (15-37) U/L ALT 53 (16-63) U/L Alkaline Phosphatase 245 H (46-116) U/L Troponin I 0.025 (0.00-0.056) ng/mL NT-Pro-B Natriuret Pep 5906 H (0-450) pg/mL Total Protein 5.8 L (6.4-8.2) g/dl Albumin 2.1 L (3.4-5.0) g/dl Globulin 3.7 gm/dL Albumin/Globulin Ratio 0.6 L (1-2) Mycoplasma pneumon IgM (NEGATIVE) 08/08/18 08/08/18 Range/Units 09:42 11:47 WBC (4.23-9.07) K/mm3 RBC (4.63-6.08) M/mm3 Hgb (13.7-17.5) gm/L Hct (40.1-51.0) % MCV (79.0-92.2) fl MCH (25.7-32.2) pg MCHC (32.2-35.5) g/dl RDW Std Deviation (35.1-43.9) fL Plt Count (163-337) K/mm3 MPV (9.4-12.3) fl Neut % (Auto) (34.0-67.9) % Lymph % (Auto) (21.8-53.1) % Pitkin % (Auto) (5.3-12.2) % Eos % (Auto) (0.8-7.0) Baso % (Auto) (0.1-1.2) % Neut # (Auto) (1.78-5.38) K/mm3 Lymph # (Auto) (1.32-3.57) K/mm3 [place]kin # (Auto) (0.30-0.82) K/mm3 Eos # (Auto) (0.04-0.54) K/mm3 Baso # (Auto) (0.01-0.08) K/mm3 Manual Slide Review Sodium (136-145) mEq/L Potassium (3.5-5.1) mEq/L Chloride (98-107) mEq/L Carbon Dioxide (21-32) mEq/L Anion Gap (5-15) BUN (7-18) mg/dL Creatinine (0.7-1.3) mg/dL Est Cr Clr Drug Dosing mL/min Estimated GFR (MDRD) (>60) mL/min BUN/Creatinine Ratio (14-18) Glucose (83-115) mg/dL Lactic Acid 2.1 H (0.4-2.0) mmol/L Calcium (8.5-10.1) mg/dL Total Bilirubin (0.2-1.0) mg/dL AST (15-37) U/L ALT (16-63) U/L Alkaline Phosphatase (46-116) U/L Troponin I (0.00-0.056) ng/mL NT-Pro-B Natriuret Pep (0-450) pg/mL Total Protein (6.4-8.2) g/dl Albumin (3.4-5.0) g/dl Globulin gm/dL Albumin/Globulin Ratio (1-2) Mycoplasma pneumon IgM Negative (NEGATIVE) Result Diagrams: 08/08/18 09:42 08/08/18 09:42 - Problem List (1) Hypotension SNOMED Code(s): 71766257 ICD Code: I95.9 - HYPOTENSION, UNSPECIFIED Status: Acute Priority: High Current Visit: Yes Qualifiers: Hypotension type: unspecified hypotension type Qualified Code(s): I95.9 - Hypotension, unspecified (2) Pneumonia SNOMED Code(s): 587392370 ICD Code: J18.9 - PNEUMONIA, UNSPECIFIED ORGANISM Status: Acute Priority : High Current Visit: Yes Qualifiers: Pneumonia type: due to unspecified organism Laterality: left Lung location: lower lobe of lung Qualified Code(s): J18.1 - Lobar pneumonia, unspecified organism (3) Acute kidney injury SNOMED Code(s): 32322140 ICD Code: N17.9 - ACUTE KIDNEY FAILURE, UNSPECIFIED Status: Acute Priority: High Current Visit: Yes Problem List Initiated/Reviewed/Updated: Yes Orders Last 24hrs: Active Orders 24 hr Category Date Time Status Patient Status [ADT] Routine ADT 08/08/18 13:19 Active Cardiac Monitoring [RC] . DIRECTED Care 08/08/18 09:28 Active EKG Documentation Completion [RC] STAT Care 08/08/18 09:30 Active Oxygen Therapy [RC] PRN Care 08/08/18 09:28 Active RT Aerosol Therapy [RC] ASDIRECTED Care 08/08/18 09:30 Active CULTURE BLOOD [BC] Stat Lab 08/08/18 11:47 Received CULTURE BLOOD [BC] Stat Lab 08/08/18 11:54 Received CULTURE SPUTUM + SMEAR [RM] Routine Lab 08/08/18 15:29 Ordered METH-RESIST S.AUR,MRSA BY PCR [MOLEC] Routine Lab 08/08/18 15:20 Received Sodium Chloride 0.9% [Normal Saline] 500 ml Med 08/08/18 09:30 Active IV .BOLUS Sodium Chloride 0.9% [Saline Flush] Med 08/08/18 09:27 Active 10 ml FLUSH ASDIRECTED PRN Blood Culture x2 Reflex Set [OM.PC] Stat Oth 08/08/18 11:29 Ordered Peripheral IV Insertion Adult [OM.PC] Stat Oth 08/08/18 09:27 Ordered Medication Orders Sodium Chloride (Normal Saline) 500 mls @ 1,000 mls/hr IV .BOLUS MARGOT Last Admin: 08/08/18 09:20 Dose: 1,000 mls/hr Sodium Chloride (Saline Flush) 10 ml FLUSH ASDIRECTED PRN PRN Reason: Keep Vein Open Last Admin: 08/08/18 09:18 Dose: 10 ml Assessment/Plan Comment:: Assessment/Plan: PNA vs Bronchitis * Was seen at clinic today by PCP and c/o being weak, dizzy, w/ SOB and cough x 1 day * WBC 16.9 * CXR shows nothing acute * RT/Duonebs/IS/Acapella * Sepsis Protocol: * LA 2.1, Blood cultures pending * RVP, Sputum Culture, Strep pneumo pending * Influenza, Mycoplasma negative * Rocephin given in ED--> continue and add Azithromycin * Solumedrol given in ED--> D/C for now; elevates Blood Glucose which is a concern from family * Robitussin DM PRN Hypotension, Improving * Likely 2/2 decreased intake * BP 84/23 * Monitor * IVF * Dietary Consult Anemia * Hgb 8.9 * Monitor * Replenish with PRBCs PRN SHEREEN, unsure of baseline * GFR 48 (CKD III), Cr 1.4 * Last year GFR >60 (CKD II) * Monitor * IVF Chronic: HTN HLD CAD s/p CABG and stents CHF * BNP elevated 5906 * Lasix PRN; balance w/ IVF for hypotension SOB on exertion Cardiomegaly DM2 Recurrent Bronchitis/PNA COPD 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 Coyle
[2018-08-08] MEDS ORDERED: diphenhydrAMINE 50 MG/ML SDV IVPUSH PRN (16:54)
[2018-08-08] MEDS ORDERED: 50% Dextrose in Water 50 ML Syringe IVPUSH PRN (16:56)
[2018-08-08] MEDS ORDERED: Bisacodyl 5 MG Tab PO PRN (16:58)
[2018-08-08] MEDS ORDERED: Promethazine 25 MG Tab PO PRN (16:58)
[2018-08-08] MEDS ORDERED: Promethazine 6.25 MG in Sodium Chloride 0.9% 50 ML IV PRN (16:58)
[2018-08-08] MEDS ORDERED: Acetaminophen 325 MG Tab PO PRN (16:58)
[2018-08-08] MEDS ORDERED: Docusate Sodium 100 MG Cap PO PRN (16:58)
[2018-08-08] MEDS ORDERED: Polyethylene Glycol 3350 Powder 17 GM Packet PO PRN (16:58)
[2018-08-08] MEDS ORDERED: Magnesium Hydroxide 400 MG/5 ML Susp 30 ML Cup PO PRN (16:58)
[2018-08-08] MEDS ORDERED: guaiFENesin/Dextromethorphan 100-10 MG/5 ML Soln 5 ML Cup PO PRN (17:04)
[2018-08-08] MEDS ORDERED: traMADol 50 MG Tab PO PRN (17:04)
[2018-08-08] MEDS ORDERED: Nitroglycerin 0.4 MG Tab.SL SL PRN (17:04)
[2018-08-08] MEDS: Sodium Chloride 0.9% 1,000 ML IV SCH (17:56)
[2018-08-08] MEDS: Azithromycin 500 MG in Sodium Chloride 0.9% 250 ML IV SCH (17:57)
[2018-08-08] MEDS: Insulin Lispro 100 UNIT/ML 10 ML VIAL SUBCUT SCH ×2 (18:34→22:24)
[2018-08-08] MEDS ORDERED: LACTOSE REDUCED FOOD PO SCH (21:00)
[2018-08-08] MEDS: Brimonidine 0.2% Ophth Soln 5 ML Bottle EYEBOTH SCH (22:23)
[2018-08-08] MEDS: Carboxymethylcellulose Sodium 1% Ophth Gel 15 ML Bottle EYEBOTH SCH (22:23)
[2018-08-08] MEDS: Simvastatin 40 MG Tab PO SCH (22:24)
[2018-08-08] MEDS: Magnesium Oxide 400 MG Tab PO SCH (22:24)
[2018-08-08] MEDS: guaiFENesin 600 MG Tab.ER PO SCH (22:24)
[2018-08-08] MEDS: Saccharomyces Boulardii (Probiotic) 250 MG Cap PO SCH (22:24)
[2018-08-08] MEDS: Benzonatate 100 MG Cap PO SCH (22:24)
[2018-08-08] MEDS: Levalbuterol HCl 1.25 MG/3 ML Neb NEB PRN (22:58)
[2018-08-09] MEDS: Sodium Chloride 0.9% 1,000 ML IV SCH ×3 (03:22→23:28)
[2018-08-09] MEDS ORDERED: cefTRIAXone 2 GM in Sodium Chloride 0.9% 100 ML IV SCH (08:00)
[2018-08-09 08:02] LABS: HEMOGLOBIN A1C 7.8 % (4.50-6.20)
[2018-08-09] MEDS: Losartan 25 MG Tab PO SCH (08:06)
[2018-08-09] MEDS ORDERED: Nicotine 7 MG/24 Hr Patch TRDERM SCH (09:00)
--- NOTE | 2018-08-09 09:12 | PCM.SN ---
- Free Text/Narrative Note: Received notification to call microbiology regarding sputum cx on this patient. His specimen contains possible pneumocystis organism and would like further testing and its a send out to [facility].
[2018-08-09] MEDS: Benzonatate 100 MG Cap PO SCH ×2 (09:47→22:26)
[2018-08-09] MEDS: Aspirin 81 MG Tab.EC PO SCH (09:47)
[2018-08-09] MEDS: guaiFENesin 600 MG Tab.ER PO SCH ×2 (09:47→22:26)
[2018-08-09] MEDS: Metoprolol Succinate 25 MG Tab.ER PO SCH (09:49)
[2018-08-09] MEDS: Celecoxib 100 MG Cap PO SCH (09:49)
[2018-08-09] MEDS: Saccharomyces Boulardii (Probiotic) 250 MG Cap PO SCH ×2 (09:49→22:26)
[2018-08-09] MEDS: Furosemide 20 MG Tab PO SCH (09:50)
[2018-08-09] MEDS: Famotidine 20 MG Tab PO SCH (09:50)
[2018-08-09] MEDS: Nicotine 7 MG/24 Hr Patch TRDERM SCH (09:51)
[2018-08-09] MEDS: Magnesium Oxide 400 MG Tab PO SCH ×2 (09:51→22:26)
[2018-08-09] MEDS: Sertraline 50 MG Tab PO SCH (09:51)
[2018-08-09] MEDS: Insulin Lispro 100 UNIT/ML 10 ML VIAL SUBCUT SCH ×4 (09:53→22:26)
[2018-08-09] MEDS: Brimonidine 0.2% Ophth Soln 5 ML Bottle EYEBOTH SCH ×2 (09:53→22:25)
[2018-08-09] MEDS: Carboxymethylcellulose Sodium 1% Ophth Gel 15 ML Bottle EYEBOTH SCH ×2 (09:53→22:25)
[2018-08-09] MEDS: Multivitamins,Therapeutic Tab PO SCH (09:54)
[2018-08-09] MEDS: cefTRIAXone 2 GM in Sodium Chloride 0.9% 100 ML IV SCH (10:10)
[2018-08-09] MEDS: Roflumilast 500 MCG **PTOM PO SCH (10:11)
--- NOTE | 2018-08-09 15:35 | PCM.PN ---
- General Info Date of Service: 08/09/18 Admission Dx/Problem (Free Text): Admission Diagnosis/Problem Admission Diagnosis/Problem Pneumonia Subjective Update: In to see Wiliam. He is sitting up in a chair eating and visiting with his children. He states he is feeling much better today. Echo results show CHF LVEF 40-45%. Sputum cultures, Strep pneumo, RVP pending. Still suspect PNA vs. Bronchitis. Will continue Azithromycin and Rocephin. Answered all questions and concerns. He is ambulating. No concerns from nursing at this time. Functional Status: Reports: Pain Controlled, Tolerating Diet, Ambulating, Urinating - Review of Systems General: Reports: No Symptoms. Denies: Fever, Chills HEENT: Reports: No Symptoms Pulmonary: Reports: Shortness of Breath, Cough, Sputum, Wheezing Cardiovascular: Reports: Edema. Denies: Chest Pain Gastrointestinal: Reports: No Symptoms. Denies: Abdominal Pain, Diarrhea, Nausea, Vomiting Genitourinary: Reports: No Symptoms Musculoskeletal: Reports: No Symptoms Skin: Reports: No Symptoms Neurological: Reports: No Symptoms Psychiatric: Reports: No Symptoms - Patient Data Vitals - Most Recent: Last Vital Signs Temp 97.5 F 08/09/18 12:22 Pulse 72 08/09/18 12:22 Resp 18 08/09/18 12:22 BP 110/67 08/09/18 12:22 Pulse Ox 99 08/09/18 12:22 Weight - Most Recent: 184 lb 9.6 oz I&O - Last 24 Hours: Intake & Output 08/09/18 08/09/18 08/09/18 06:59 14:59 22:59 Intake Total 1905 180 Output Total 800 Balance 1105 180 Lab Results Last 24 Hours: Laboratory Results - last 24 hr 08/08/18 08/08/18 08/08/18 Range/Units 15:20 17:50 17:50 WBC (4.23-9.07) K/mm3 RBC (4.63-6.08) M/mm3 Hgb (13.7-17.5) gm/L Hct (40.1-51.0) % MCV (79.0-92.2) fl MCH (25.7-32.2) pg MCHC (32.2-35.5) g/dl RDW Std Deviation (35.1-43.9) fL Plt Count (163-337) K/mm3 MPV (9.4-12.3) fl Neut % (Auto) (34.0-67.9) % Lymph % (Auto) (21.8-53.1) % [place] % (Auto) (5.3-12.2) % Eos % (Auto) (0.8-7.0) Baso % (Auto) (0.1-1.2) % Neut # (Auto) (1.78-5.38) K/mm3 Lymph # (Auto) (1.32-3.57) K/mm3 [place] # (Auto) (0.30-0.82) K/mm3 Eos # (Auto) (0.04-0.54) K/mm3 Baso # (Auto) (0.01-0.08) K/mm3 Manual Slide Review Sodium (136-145) mEq/L Potassium (3.5-5.1) mEq/L Chloride (98-107) mEq/L Carbon Dioxide (21-32) mEq/L Anion Gap (5-15) BUN (7-18) mg/dL Creatinine (0.7-1.3) mg/dL Est Cr Clr Drug Dosing mL/min Estimated GFR (MDRD) (>60) mL/min BUN/Creatinine Ratio (14-18) Glucose 433 H (83-115) mg/dL POC Glucose (83-110) mg/dL Hemoglobin A1c (4.50-6.20) % Calcium (8.5-10.1) mg/dL Magnesium (1.8-2.4) mg/dl C-Reactive Protein 19.4 H* (<1.0) mg/dL Triglycerides (<150) mg/dL Cholesterol (<200) mg/dL LDL Cholesterol Direct (<100) mg/dL HDL Cholesterol (40-59) mg/dL MRSA (PCR) Negative 08/08/18 08/09/18 08/09/18 Range/Units 21:04 00:26 06:28 WBC (4.23-9.07) K/mm3 RBC (4.63-6.08) M/mm3 Hgb (13.7-17.5) gm/L Hct (40.1-51.0) % MCV (79.0-92.2) fl MCH (25.7-32.2) pg MCHC (32.2-35.5) g/dl RDW Std Deviation (35.1-43.9) fL Plt Count (163-337) K/mm3 MPV (9.4-12.3) fl Neut % (Auto) (34.0-67.9) % Lymph % (Auto) (21.8-53.1) % [place] % (Auto) (5.3-12.2) % Eos % (Auto) (0.8-7.0) Baso % (Auto) (0.1-1.2) % Neut # (Auto) (1.78-5.38) K/mm3 Lymph # (Auto) (1.32-3.57) K/mm3 [place] # (Auto) (0.30-0.82) K/mm3 Eos # (Auto) (0.04-0.54) K/mm3 Baso # (Auto) (0.01-0.08) K/mm3 Manual Slide Review Sodium (136-145) mEq/L Potassium (3.5-5.1) mEq/L Chloride (98-107) mEq/L Carbon Dioxide (21-32) mEq/L Anion Gap (5-15) BUN (7-18) mg/dL Creatinine (0.7-1.3) mg/dL Est Cr Clr Drug Dosing mL/min Estimated GFR (MDRD) (>60) mL/min BUN/Creatinine Ratio (14-18) Glucose 415 H (83-115) mg/dL POC Glucose 306 H 253 H (83-110) mg/dL Hemoglobin A1c (4.50-6.20) % Calcium (8.5-10.1) mg/dL Magnesium (1.8-2.4) mg/dl C-Reactive Protein (<1.0) mg/dL Triglycerides (<150) mg/dL Cholesterol (<200) mg/dL LDL Cholesterol Direct (<100) mg/dL HDL Cholesterol (40-59) mg/dL MRSA (PCR) 08/09/18 08/09/18 08/09/18 Range/Units 06:40 06:40 06:40 WBC 16.03 H (4.23-9.07) K/mm3 RBC 2.92 L (4.63-6.08) M/mm3 Hgb 8.9 L (13.7-17.5) gm/L Hct 28.3 L (40.1-51.0) % MCV 96.9 H (79.0-92.2) fl MCH 30.5 (25.7-32.2) pg MCHC 31.4 L (32.2-35.5) g/dl RDW Std Deviation 43.3 (35.1-43.9) fL Plt Count 199 (163-337) K/mm3 MPV 10.2 (9.4-12.3) fl Neut % (Auto) 91.7 H (34.0-67.9) % Lymph % (Auto) 4.3 L (21.8-53.1) % [place] % (Auto) 3.6 L (5.3-12.2) % Eos % (Auto) 0.1 L (0.8-7.0) Baso % (Auto) 0.1 (0.1-1.2) % Neut # (Auto) 14.71 H (1.78-5.38) K/mm3 Lymph # (Auto) 0.69 L (1.32-3.57) K/mm3 [place] # (Auto) 0.57 (0.30-0.82) K/mm3 Eos # (Auto) 0.01 L (0.04-0.54) K/mm3 Baso # (Auto) 0.01 (0.01-0.08) K/mm3 Manual Slide Review Abnormal smear Sodium 139 (136-145) mEq/L Potassium 4.2 (3.5-5.1) mEq/L Chloride 104 (98-107) mEq/L Carbon Dioxide 27 (21-32) mEq/L Anion Gap 12.2 (5-15) BUN 19 H (7-18) mg/dL Creatinine 1.1 (0.7-1.3) mg/dL Est Cr Clr Drug Dosing 50.39 mL/min Estimated GFR (MDRD) > 60 (>60) mL/min BUN/Creatinine Ratio 17.3 (14-18) Glucose 246 H (83-115) mg/dL POC Glucose (83-110) mg/dL Hemoglobin A1c 7.80 H (4.50-6.20) % Calcium 8.6 (8.5-10.1) mg/dL Magnesium 1.8 (1.8-2.4) mg/dl C-Reactive Protein 17.1 H* (<1.0) mg/dL Triglycerides 44 (<150) mg/dL Cholesterol 95 (<200) mg/dL LDL Cholesterol Direct 34 (<100) mg/dL HDL Cholesterol 58.0 (40-59) mg/dL MRSA (PCR) 08/09/18 Range/Units 11:20 WBC (4.23-9.07) K/mm3 RBC (4.63-6.08) M/mm3 Hgb (13.7-17.5) gm/L Hct (40.1-51.0) % MCV (79.0-92.2) fl MCH (25.7-32.2) pg MCHC (32.2-35.5) g/dl RDW Std Deviation (35.1-43.9) fL Plt Count (163-337) K/mm3 MPV (9.4-12.3) fl Neut % (Auto) (34.0-67.9) % Lymph % (Auto) (21.8-53.1) % [place] % (Auto) (5.3-12.2) % Eos % (Auto) (0.8-7.0) Baso % (Auto) (0.1-1.2) % Neut # (Auto) (1.78-5.38) K/mm3 Lymph # (Auto) (1.32-3.57) K/mm3 [place] # (Auto) (0.30-0.82) K/mm3 Eos # (Auto) (0.04-0.54) K/mm3 Baso # (Auto) (0.01-0.08) K/mm3 Manual Slide Review Sodium (136-145) mEq/L Potassium (3.5-5.1) mEq/L Chloride (98-107) mEq/L Carbon Dioxide (21-32) mEq/L Anion Gap (5-15) BUN (7-18) mg/dL Creatinine (0.7-1.3) mg/dL Est Cr Clr Drug Dosing mL/min Estimated GFR (MDRD) (>60) mL/min BUN/Creatinine Ratio (14-18) Glucose (83-115) mg/dL POC Glucose 378 H (83-110) mg/dL Hemoglobin A1c (4.50-6.20) % Calcium (8.5-10.1) mg/dL Magnesium (1.8-2.4) mg/dl C-Reactive Protein (<1.0) mg/dL Triglycerides (<150) mg/dL Cholesterol (<200) mg/dL LDL Cholesterol Direct (<100) mg/dL HDL Cholesterol (40-59) mg/dL MRSA (PCR) Carlos Results Last 24 Hours: Microbiology 08/08/18 11:54 Aerobic Blood Culture - Preliminary Blood - Venous - Lab Draw NO GROWTH AFTER 1 DAY Anaerobic Blood Culture - Preliminary NO GROWTH AFTER 1 DAY 08/08/18 11:47 Aerobic Blood Culture - Preliminary Blood - Venous NO GROWTH AFTER 1 DAY Anaerobic Blood Culture - Preliminary NO GROWTH AFTER 1 DAY 08/08/18 15:55 Gram Stain - Preliminary Sputum - Expectorated Sputum Culture - Preliminary 08/08/18 15:20 Influenza Type A Antigen Screen - Final Nasal, Unspecified NEGATIVE INFLUENZA A VIRUS AG Influenza Type B Antigen Screen - Final NEGATIVE INFLUENZA B VIRUS AG Med Orders - Current: Current Medications Acetaminophen (Tylenol) 650 mg PO Q4H PRN PRN Reason: Pain (Mild 1-3)/fever Alogliptin Benzoate (Alogliptin) 25 mg PO DAILY [facility] Last Admin: 08/09/18 09:50 Dose: 25 mg Artificial Tears (Refresh Liquigel 1%) 0 ml EYEBOTH BID [facility] Last Admin: 08/09/18 09:53 Dose: 1 drop Aspirin (Halfprin) 81 mg PO DAILY [facility] Last Admin: 08/09/18 09:47 Dose: 81 mg Benzonatate (Tessalon Perles) 100 mg PO BID [facility] Last Admin: 08/09/18 09:47 Dose: 100 mg Bisacodyl (Dulcolax) 5 mg PO DAILY PRN PRN Reason: Constipation Brimonidine Tartrate (Alphagan 0.2% [facility] Sol) 0 ml EYEBOTH BID [facility] Last Admin: 08/09/18 09:53 Dose: 1 drop Celecoxib (Celebrex) 200 mg PO DAILY [facility] Last Admin: 08/09/18 09:49 Dose: 200 mg Dextrose/Water (Dextrose 50% In Water) 50 ml IVPUSH ASDIRECTED PRN PRN Reason: Hypoglycemia Diphenhydramine HCl (Benadryl) 25 mg IVPUSH Q4H PRN PRN Reason: Rash/allergic rxn Docusate Sodium (Colace) 100 mg PO BID PRN PRN Reason: Constipation Famotidine (Pepcid) 20 mg PO DAILY [facility] Last Admin: 08/09/18 09:50 Dose: 20 mg Furosemide (Lasix) 20 mg PO DAILY [facility] Last Admin: 08/09/18 09:50 Dose: 20 mg Glipizide (Glucotrol) 10 mg PO DAILY [facility] Last Admin: 08/09/18 09:48 Dose: 10 mg Guaifenesin (Mucinex) 600 mg PO BID [facility] Last Admin: 08/09/18 09:47 Dose: 600 mg Guaifenesin/Phenylephrine HCl (Robitussin Dm) 10 ml PO Q6H PRN PRN Reason: Cough/COPD Azithromycin 500 mg/ Sodium (Chloride) 250 mls @ 250 mls/hr IV Q24H [facility] Last Admin: 08/08/18 17:57 Dose: 250 mls/hr Promethazine HCl 6.25 mg/ (Sodium Chloride) 50.25 mls @ 100 mls/hr IV Q6H PRN PRN Reason: Nausea/Vomiting Sodium Chloride (Normal Saline) 1,000 mls @ 100 mls/hr IV ASDIRECTED [facility] Last Admin: 08/09/18 13:48 Dose: 100 mls/hr Ceftriaxone Sodium 2 gm/ (Sodium Chloride) 100 mls @ 200 mls/hr IV Q24H [facility] Last Admin: 08/09/18 10:10 Dose: 200 mls/hr Insulin Human Lispro (Humalog) 0 unit SUBCUT QIDACANDBED [facility]; Protocol Last Admin: 08/09/18 11:54 Dose: 5 units Levalbuterol HCl (Xopenex) 1.25 mg NEB TID PRN PRN Reason: Wheezing Last Admin: 08/08/18 22:58 Dose: 1.25 mg Losartan Potassium (Cozaar) 25 mg PO DAILY [facility] Last Admin: 08/09/18 08:06 Dose: Not Given Magnesium Hydroxide (Milk Of Magnesia) 30 ml PO Q12H PRN PRN Reason: Constipation Magnesium Oxide (Magnesium Oxide) 400 mg PO BID [facility] Last Admin: 08/09/18 09:51 Dose: 400 mg Metoprolol Succinate (Toprol Xl) 25 mg PO DAILY [facility] Last Admin: 08/09/18 09:49 Dose: 25 mg Miscellaneous Information (Remove Patch) 1 ea TRDERM DAILY [facility] Last Admin: 08/09/18 10:11 Dose: 1 ea Multivitamins (Thera) 1 each PO DAILY [facility] Last Admin: 08/09/18 09:54 Dose: 1 each Nicotine (Habitrol) 7 mg TRDERM DAILY [facility] Last Admin: 08/09/18 09:51 Dose: 7 mg Nitroglycerin (Nitrostat) 0.4 mg SL Q5M PRN PRN Reason: Chest Pain Roflumilast 500 Mcg (Ptom) 0 each PO DAILY [facility] Last Admin: 08/09/18 10:11 Dose: Not Given Polyethylene Glycol (Miralax) 17 gm PO DAILY PRN PRN Reason: Constipation Promethazine HCl (Phenergan) 25 mg PO Q6H PRN PRN Reason: Nausea/Vomiting Saccharomyces Boulardii (Florastor) 250 mg PO BID [facility] Last Admin: 08/09/18 09:49 Dose: 250 mg Senna/Docusate Sodium (Senna Plus) 1 tab PO BID PRN PRN Reason: Constipation Sertraline HCl (Zoloft) 50 mg PO DAILY [facility] Last Admin: 08/09/18 09:51 Dose: 50 mg Simvastatin (Zocor) 40 mg PO BEDTIME [facility] Last Admin: 08/08/18 22:24 Dose: 40 mg Sodium Chloride (Saline Flush) 10 ml FLUSH ASDIRECTED PRN PRN Reason: Keep Vein Open Last Admin: 08/08/18 09:18 Dose: 10 ml Tramadol HCl (Ultram) 50 mg PO QID PRN PRN Reason: Pain Discontinued Medications Albuterol/Ipratropium (Duoneb 3.0-0.5 Mg/3 Ml) 3 ml NEB ONETIME ONE Stop: 08/08/18 09:31 Last Admin: 08/08/18 10:03 Dose: 3 ml Sodium Chloride (Normal Saline) 500 mls @ 1,000 mls/hr IV .BOLUS [facility] Last Admin: 08/08/18 09:20 Dose: 1,000 mls/hr Ceftriaxone Sodium 2 gm/ (Sodium Chloride) 100 mls @ 200 mls/hr IV ONETIME ONE Stop: 08/08/18 11:59 Last Admin: 08/08/18 12:42 Dose: Not Given Ceftriaxone Sodium 2 gm/ (Sodium Chloride) 100 mls @ 200 mls/hr IV ONETIME ONE Stop: 08/08/18 12:18 Last Admin: 08/08/18 11:54 Dose: 200 mls/hr Ceftriaxone Sodium 2 gm/ (Sodium Chloride) 100 mls @ 200 mls/hr IV Q24H [facility] Last Admin: 08/09/18 12:50 Dose: Not Given Methylprednisolone Sodium Succinate (Solu-Medrol) 125 mg IVPUSH ONETIME ONE Stop: 08/08/18 11:32 Last Admin: 08/08/18 11:56 Dose: 125 mg Nicotine (Habitrol) 7 mg TRDERM DAILY [facility] Non-Formulary Medication (Lactose-Reduced Food [Ensure Active Clear]) 4 oz PO BID [facility] Last Admin: 08/09/18 12:50 Dose: Not Given - Exam Quality Assessment: Supplemental Oxygen, DVT Prophylaxis General: Alert, Oriented, Cooperative, No Acute Distress HEENT: Pupils Equal, Pupils Reactive, EOMI, Mucous Membr. Moist/[place] Neck: Supple Lungs: Normal Respiratory Effort, Decreased Breath Sounds, Rhonchi, Wheezing Cardiovascular: Regular Rate, Regular Rhythm GI/Abdominal Exam: Normal Bowel Sounds, Soft, Non-Tender, No Organomegaly, No Distention, No Abnormal Bruit, No Mass, Pelvis Stable (Male) Exam: Deferred Back Exam: Normal Inspection Extremities: Normal Inspection, Normal Range of Motion, Non-Tender, Normal Capillary Refill, Pedal Edema (1+ pitting edema) Peripheral Pulses: 1+: Posterior Tibial (L), Posterior Tibial (R), Dorsalis Pedis (L), Dorsalis Pedis (R) Skin: Warm, Dry, Intact Neurological: No New Focal Deficit Psy/Mental Status: Alert, Normal Affect, Normal Mood - Problem List & Annotations (1) Hypotension SNOMED Code(s): 71376182 Code(s): I95.9 - HYPOTENSION, UNSPECIFIED Status: Acute Priority: High Current Visit: Yes Qualifiers: Hypotension type: unspecified hypotension type Qualified Code(s): I95.9 - Hypotension, unspecified (2) Pneumonia SNOMED Code(s): 782009795 Code(s): J18.9 - PNEUMONIA, UNSPECIFIED ORGANISM Status: Acute Priority: High Current Visit: Yes Qualifiers: Pneumonia type: due to unspecified organism Laterality: left Lung location: lower lobe of lung Qualified Code(s): J18.1 - Lobar pneumonia, unspecified organism (3) Acute kidney injury SNOMED Code(s): 54297896 Code(s): N17.9 - ACUTE KIDNEY FAILURE, UNSPECIFIED Status: Acute Priority : High Current Visit: Yes - Problem List Review Problem List Initiated/Reviewed/Updated: Yes - My Orders Last 24 Hours: My Active Orders 08/08/18 16:54 diphenhydrAMINE [Benadryl] 25 mg IVPUSH Q4H PRN 08/08/18 16:56 Blood Glucose Check, Bedside [RC] QIDACANDBED RT Chest Physiotherapy [RC] ASDIRECTED RT Incentive Spirometry [RC] ASDIRECTED Dextrose 50% in Water 50 ml IVPUSH ASDIRECTED PRN 08/08/18 16:58 Height and Weight [RC] 04 Intake and Output [RC] ,16 October Shower [RC] DAILY Up With Assistance [RC] DAILY VTE/DVT Education [RC] BID Vital Signs [RC] 03,,15, Consult to Case Management/Parts Counter Salesperson [CONS] Routine Consult to Diabetic Nurse Specialist [CONS] Routine OT Evaluation and Treatment [CONS] Routine PT Evaluation and Treatment [CONS] Routine Respiratory Care Assess and Treatment [CONS] Routine Acetaminophen [Tylenol] 650 mg PO Q4H PRN Bisacodyl [Dulcolax] 5 mg PO DAILY PRN Docusate Sodium [Colace] 100 mg PO BID PRN Docusate Sodium/Sennosides [Senna Plus] 1 tab PO BID PRN Magnesium Hydroxide [Milk of Magnesia] 30 ml PO Q12H PRN Polyethylene Glycol 3350 [MiraLAX] 17 gm PO DAILY PRN Promethazine [Phenergan] 25 mg PO Q6H PRN Promethazine [Phenergan] 6.25 mg Sodium Chloride 0.9% [Normal Saline] 50 ml IV Q6H Sequential Compression Device [OM.PC] Per Unit Routine 08/08/18 16:59 Antiembolic Devices [RC] BID 08/08/18 17:00 Azithromycin [Zithromax] 500 mg Sodium Chloride 0.9% [Normal Saline] 250 ml IV Q24H Insulin Lispro [HumaLOG] See Protocol SUBCUT QIDACANDBED Sodium Chloride 0.9% [Normal Saline] 1,000 ml IV ASDIRECTED 08/08/18 17:04 Dextromethorphan/guaiFENesin [Robitussin DM] 10 ml PO Q6H PRN Levalbuterol HCl [Xopenex] 1.25 mg NEB TID PRN Nitroglycerin [Nitrostat] 0.4 mg SL Q5M PRN traMADol [Ultram] 50 mg PO QID PRN 08/08/18 18:05 RESPIRATORY PANEL Routine 08/08/18 18:28 Code Status [Resuscitation Status] Routine 08/08/18 18:36 Consult to Dietary [Consult to Elementary School Librarian] [CONS] Routine 08/08/18 18:40 STREP PNEUMONIAE ANTIGEN [MREF] Routine 08/08/18 21:00 Benzonatate [Tessalon Perles] 100 mg PO BID Brimonidine [Alphagan 0.2% Ophth Soln] 0 ml EYEBOTH BID Carboxymethylcellulose Sodium [Refresh Liquigel 1%] 0 ml EYEBOTH BID Magnesium Oxide 400 mg PO BID Saccharomyces Boulardii [Florastor] 250 mg PO BID Simvastatin [Zocor] 40 mg PO BEDTIME guaiFENesin [Mucinex] 600 mg PO BID 08/08/18 [employer]inner [employer] Diet [DIET] Heart Healthy Diet [DIET] 08/09/18 09:00 Alogliptin Benzoate [Alogliptin] 25 mg PO DAILY Aspirin [Halfprin] 81 mg PO DAILY Celecoxib [CeleBREX] 200 mg PO DAILY Famotidine [Pepcid] 20 mg PO DAILY Furosemide [Lasix] 20 mg PO DAILY Losartan [Cozaar] 25 mg PO DAILY Metoprolol Succinate [Toprol XL] 25 mg PO DAILY Multivitamins,Therapeutic [Thera] 1 each PO DAILY Nicotine [Habitrol] 7 mg TRDERM DAILY Patient's Own Medication [Ptom] 0 each PO DAILY Remove Patch 1 ea TRDERM DAILY Sertraline [Zoloft] 50 mg PO DAILY glipiZIDE [Glucotrol] 10 mg PO DAILY 08/09/18 09:39 cefTRIAXone [Rocephin] 2 gm Sodium Chloride 0.9% [Normal Saline] 100 ml IV Q24H 08/10/18 05:11 BASIC METABOLIC PANEL,BMP [CHEM] AM C-REACTIVE PROTEIN [CHEM] AM CBC WITH AUTO DIFF [HEME] AM MAGNESIUM [CHEM] AM 02/23/19 05:11 Chest 2V [CR] AM BASIC METABOLIC PANEL,BMP [CHEM] AM C-REACTIVE PROTEIN [CHEM] AM CBC WITH AUTO DIFF [HEME] AM MAGNESIUM [CHEM] AM 08/12/18 05:11 BASIC METABOLIC PANEL,BMP [CHEM] AM C-REACTIVE PROTEIN [CHEM] AM CBC WITH AUTO DIFF [HEME] AM MAGNESIUM [CHEM] AM 08/13/18 05:11 BASIC METABOLIC PANEL,BMP [CHEM] AM C-REACTIVE PROTEIN [CHEM] AM CBC WITH AUTO DIFF [HEME] AM MAGNESIUM [CHEM] AM - Plan Plan:: Assessment/Plan: PNA vs Bronchitis, Improving * Was seen at clinic today by PCP and c/o being weak, dizzy, w/ SOB and cough x 1 day * WBC 16.9--> 16.03, CRP 19.4-->17.1 * CXR shows nothing acute * RT/Duonebs/IS/Acapella * Sepsis Protocol: * LA 2.1, Blood cultures show no growth after x 24days * RVP, Strep pneumo pending * Sputum Culture shows possible pneumocystitis; awaiting formal read * Influenza, Mycoplasma negative * Rocephin given in ED--> continue and add Azithromycin * Solumedrol given in ED--> D/C for now; elevates Blood Glucose which is a concern from family * Robitussin DM PRN Anemia, Stable * Hgb 8.9 * Monitor * Replenish with PRBCs PRN Resolved: Hypotension, Improving * Likely 2/2 decreased intake * BP 84/23 * Monitor * IVF * Dietary Consult SHEREEN, unsure of baseline * GFR 48 (CKD III)--> >60, Cr 1.4--> 1.1 * Last year GFR >60 (CKD II) * Monitor * IVF Chronic: HTN HLD CAD s/p CABG and stents CHF * BNP elevated 5906 * ECHO 08/09/18 shows HFrEF: * LVEF 40-45% * Mildly decreased and segmental L ventricular systolic function * Grade 2 pattern of LV diastolic filling * Mild aortic valve sclerosis without stenosis * Mod mitral valve regurg * Mild pulmonic valve regurg * R ventricular sys pressure mild to mod elevated at 44mmHg * Lasix PRN; balance w/ IVF for hypotension SOB on exertion Cardiomegaly DM2 Recurrent Bronchitis/PNA COPD 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 Coyle
[2018-08-09] MEDS: Azithromycin 500 MG in Sodium Chloride 0.9% 250 ML IV SCH (17:29)
[2018-08-09] MEDS ORDERED: Insulin Glarg,Human.Rec.Analog 100 UNIT/ML ML SUBCUT ONE (21:00)
[2018-08-09] MEDS ORDERED: Insulin Glarg,Human.Rec.Analog 100 UNIT/ML ML SUBCUT SCH (21:00)
[2018-08-09] MEDS: Simvastatin 40 MG Tab PO SCH (22:26)
[2018-08-09] MEDS: Levalbuterol HCl 1.25 MG/3 ML Neb NEB PRN (23:36)
[2018-08-10] MEDS: Levalbuterol HCl 1.25 MG/3 ML Neb NEB PRN (08:15)
[2018-08-10] MEDS: Insulin Lispro 100 UNIT/ML 10 ML VIAL SUBCUT SCH ×4 (08:18→21:30)
[2018-08-10] MEDS: Brimonidine 0.2% Ophth Soln 5 ML Bottle EYEBOTH SCH ×2 (08:22→21:17)
[2018-08-10] MEDS: Celecoxib 100 MG Cap PO SCH (08:23)
[2018-08-10] MEDS: Losartan 25 MG Tab PO SCH (08:24)
[2018-08-10] MEDS: Nicotine 7 MG/24 Hr Patch TRDERM SCH (08:24)
[2018-08-10] MEDS: Saccharomyces Boulardii (Probiotic) 250 MG Cap PO SCH ×2 (08:24→21:18)
[2018-08-10] MEDS: Furosemide 20 MG Tab PO SCH (08:28)
[2018-08-10] MEDS: Aspirin 81 MG Tab.EC PO SCH (08:28)
[2018-08-10] MEDS: guaiFENesin 600 MG Tab.ER PO SCH ×2 (08:29→21:18)
[2018-08-10] MEDS: Magnesium Oxide 400 MG Tab PO SCH (08:29)
[2018-08-10] MEDS: Famotidine 20 MG Tab PO SCH (08:29)
[2018-08-10] MEDS: Carboxymethylcellulose Sodium 1% Ophth Gel 15 ML Bottle EYEBOTH SCH ×2 (08:30→21:17)
[2018-08-10] MEDS: Roflumilast 500 MCG **PTOM PO SCH (08:30)
[2018-08-10] MEDS: Metoprolol Succinate 25 MG Tab.ER PO SCH (08:31)
[2018-08-10] MEDS: Multivitamins,Therapeutic Tab PO SCH (08:31)
[2018-08-10] MEDS: Benzonatate 100 MG Cap PO SCH (08:31)
[2018-08-10] MEDS: Sertraline 50 MG Tab PO SCH (08:32)
[2018-08-10] MEDS: cefTRIAXone 2 GM in Sodium Chloride 0.9% 100 ML IV SCH (08:42)
[2018-08-10] MEDS ORDERED: guaiFENesin/Dextromethorphan 100-10 MG/5 ML Soln 5 ML Cup PO PRN (09:37)
[2018-08-10] MEDS ORDERED: Benzonatate 100 MG Cap PO PRN (09:37)
[2018-08-10] MEDS ORDERED: Albuterol/Ipratropium 3.0-0.5 MG/3 ML Neb Soln NEB PRN (09:39)
--- NOTE | 2018-08-10 09:46 | PCM.SN ---
- Free Text/Narrative Note: Patient briefly seen and examined at bedside w/ audible wheezing. She is comfortable but reports he did not sleep too well last night. 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 His sugar has been up and down but seems to be improving. We'll resume his home Magnesium supplement, order scheduled and as needed douneb if he is not already on. His repeat chest x -ray appears to be slightly better (decreased lungs markings) or about the same as previous imaging study.
--- NOTE | 2018-08-10 10:23 | CR ---
Chest: Two views of the chest were obtained. Comparison: Prior chest x-ray of 08/08/18. Heart is enlarged. Small left-sided pleural effusion is seen. Fluid is also noted within the major fissure on the lateral view. Pulmonary vessels show increased congestion from previous study. Previous sternotomy is noted. Bony structures appear within normal limits for the patient's age. Impression: 1. Findings compatible with CHF as described above. Study has worsened from previous exam. Diagnostic code #3
[2018-08-10] MEDS: Albuterol/Ipratropium 3.0-0.5 MG/3 ML Neb Soln NEB SCH ×2 (11:31→20:46)
[2018-08-10] MEDS ORDERED: Bumetanide 1 MG/4 ML MDV IVPUSH ONE (14:00)
--- NOTE | 2018-08-10 14:35 | PCM.PN ---
- General Info Date of Service: 08/10/18 Admission Dx/Problem (Free Text): Admission Diagnosis/Problem Admission Diagnosis/Problem Pneumonia Subjective Update: In to see Wiliam. He is sitting up in bed eating and visiting with his son. He had some trouble sleeping last night, stated he "just couldn't fall asleep" and sometimes he has to take a pain pill to sleep at night. Will put in sleeping medication PRN to help. He also is having some trouble with wheezing and "getting enough oxygen" today. CXR and BNP show that he is having CHF exacerbation, likely from the IVF given for the previous dehydration and SHEREEN. Will diurese and put on fluid restriction and salt restriction diet. RVP, strep pneumo, mycoplasma all negative. Still awaiting sputum culture results to r/o bacterial infection. Will continue Rocephin and Azithromycin for now. Answered all questions and concerns. No concerns from nursing. Functional Status: Reports: Pain Controlled, Tolerating Diet, Ambulating, Urinating - Review of Systems General: Reports: No Symptoms. Denies: Fever, Chills HEENT: Reports: No Symptoms Pulmonary: Reports: Shortness of Breath, Cough, Sputum, Wheezing Cardiovascular: Reports: Edema. Denies: Chest Pain Gastrointestinal: Reports: No Symptoms. Denies: Abdominal Pain, Diarrhea, Nausea, Vomiting Genitourinary: Reports: No Symptoms Musculoskeletal: Reports: No Symptoms Skin: Reports: No Symptoms Neurological: Reports: No Symptoms Psychiatric: Reports: No Symptoms - Patient Data Vitals - Most Recent: Last Vital Signs Temp 98.6 F 08/10/18 07:19 Pulse 93 08/10/18 08:31 Resp 32 H 08/10/18 07:19 BP 150/70 H 08/10/18 08:31 Pulse Ox 97 08/10/18 13:13 Weight - Most Recent: 189 lb 4.8 oz I&O - Last 24 Hours: Intake & Output 08/09/18 08/10/18 08/10/18 22:59 06:59 14:59 Intake Total 2201 1843 380 Output Total 350 1200 Balance 1851 643 380 Lab Results Last 24 Hours: Laboratory Results - last 24 hr 08/08/18 08/09/18 08/09/18 Range/Units 18:05 17:14 21:27 WBC (4.23-9.07) K/mm3 RBC (4.63-6.08) M/mm3 Hgb (13.7-17.5) gm/L Hct (40.1-51.0) % MCV (79.0-92.2) fl MCH (25.7-32.2) pg MCHC (32.2-35.5) g/dl RDW Std Deviation (35.1-43.9) fL Plt Count (163-337) K/mm3 MPV (9.4-12.3) fl Neut % (Auto) (34.0-67.9) % Lymph % (Auto) (21.8-53.1) % Benzie % (Auto) (5.3-12.2) % Eos % (Auto) (0.8-7.0) Baso % (Auto) (0.1-1.2) % Neut # (Auto) (1.78-5.38) K/mm3 Lymph # (Auto) (1.32-3.57) K/mm3 Benzie # (Auto) (0.30-0.82) K/mm3 Eos # (Auto) (0.04-0.54) K/mm3 Baso # (Auto) (0.01-0.08) K/mm3 Manual Slide Review Sodium (136-145) mEq/L Potassium (3.5-5.1) mEq/L Chloride (98-107) mEq/L Carbon Dioxide (21-32) mEq/L Anion Gap (5-15) BUN (7-18) mg/dL Creatinine (0.7-1.3) mg/dL Est Cr Clr Drug Dosing mL/min Estimated GFR (MDRD) (>60) mL/min BUN/Creatinine Ratio (14-18) Glucose (83-115) mg/dL POC Glucose 130 H 204 H (83-110) mg/dL Calcium (8.5-10.1) mg/dL Magnesium (1.8-2.4) mg/dl C-Reactive Protein (<1.0) mg/dL Adenovirus (PCR) Not detected (Not Detected) B. pertussis DNA (PCR) Not detected (Not Detected) B.parapertussis DNA PCR Not detected (Not Detected) C. pneumoniae DNA (PCR) Not detected (Not Detected) Coronavirus (PCR) Not detected (Not Detected) Human Metapneumovir PCR Not detected (Not Detected) Influenza A (RT-PCR) Not detected (Not Detected) Influenza B (RT-PCR) Not detected (Not Detected) M. pneumoniae (PCR) Not detected (Not Detected) Parainfluen 1,2,3,4 PCR Not detected (Not Detected) RSV (PCR) Not detected (Not Detected) Entero/Rhino (PCR) Not detected (Not Detected) 08/10/18 08/10/18 08/10/18 Range/Units 06:14 06:47 06:47 WBC 16.43 H (4.23-9.07) K/mm3 RBC 3.54 L (4.63-6.08) M/mm3 Hgb 10.6 L (13.7-17.5) gm/L Hct 35.0 L (40.1-51.0) % MCV 98.9 H (79.0-92.2) fl MCH 29.9 (25.7-32.2) pg MCHC 30.3 L (32.2-35.5) g/dl RDW Std Deviation 48.2 H (35.1-43.9) fL Plt Count 240 (163-337) K/mm3 MPV 10.0 (9.4-12.3) fl Neut % (Auto) 85.2 H (34.0-67.9) % Lymph % (Auto) 6.9 L (21.8-53.1) % Benzie % (Auto) 6.5 (5.3-12.2) % Eos % (Auto) 0.7 L (0.8-7.0) Baso % (Auto) 0.1 (0.1-1.2) % Neut # (Auto) 13.99 H (1.78-5.38) K/mm3 Lymph # (Auto) 1.13 L (1.32-3.57) K/mm3 Benzie # (Auto) 1.07 H (0.30-0.82) K/mm3 Eos # (Auto) 0.12 (0.04-0.54) K/mm3 Baso # (Auto) 0.02 (0.01-0.08) K/mm3 Manual Slide Review Abnormal smear Sodium 139 (136-145) mEq/L Potassium 4.4 (3.5-5.1) mEq/L Chloride 105 (98-107) mEq/L Carbon Dioxide 28 (21-32) mEq/L Anion Gap 10.4 (5-15) BUN 24 H (7-18) mg/dL Creatinine 1.1 (0.7-1.3) mg/dL Est Cr Clr Drug Dosing 50.39 mL/min Estimated GFR (MDRD) > 60 (>60) mL/min BUN/Creatinine Ratio 21.8 H (14-18) Glucose 139 H (83-115) mg/dL POC Glucose 155 H (83-110) mg/dL Calcium 9.0 (8.5-10.1) mg/dL Magnesium 1.9 (1.8-2.4) mg/dl C-Reactive Protein 11.5 H* (<1.0) mg/dL Adenovirus (PCR) (Not Detected) B. pertussis DNA (PCR) (Not Detected) B.parapertussis DNA PCR (Not Detected) C. pneumoniae DNA (PCR) (Not Detected) Coronavirus (PCR) (Not Detected) Human Metapneumovir PCR (Not Detected) Influenza A (RT-PCR) (Not Detected) Influenza B (RT-PCR) (Not Detected) M. pneumoniae (PCR) (Not Detected) Parainfluen 1,2,3,4 PCR (Not Detected) RSV (PCR) (Not Detected) Entero/Rhino (PCR) (Not Detected) 08/10/18 Range/Units 11:38 WBC (4.23-9.07) K/mm3 RBC (4.63-6.08) M/mm3 Hgb (13.7-17.5) gm/L Hct (40.1-51.0) % MCV (79.0-92.2) fl MCH (25.7-32.2) pg MCHC (32.2-35.5) g/dl RDW Std Deviation (35.1-43.9) fL Plt Count (163-337) K/mm3 MPV (9.4-12.3) fl Neut % (Auto) (34.0-67.9) % Lymph % (Auto) (21.8-53.1) % Benzie % (Auto) (5.3-12.2) % Eos % (Auto) (0.8-7.0) Baso % (Auto) (0.1-1.2) % Neut # (Auto) (1.78-5.38) K/mm3 Lymph # (Auto) (1.32-3.57) K/mm3 Benzie # (Auto) (0.30-0.82) K/mm3 Eos # (Auto) (0.04-0.54) K/mm3 Baso # (Auto) (0.01-0.08) K/mm3 Manual Slide Review Sodium (136-145) mEq/L Potassium (3.5-5.1) mEq/L Chloride (98-107) mEq/L Carbon Dioxide (21-32) mEq/L Anion Gap (5-15) BUN (7-18) mg/dL Creatinine (0.7-1.3) mg/dL Est Cr Clr Drug Dosing mL/min Estimated GFR (MDRD) (>60) mL/min BUN/Creatinine Ratio (14-18) Glucose (83-115) mg/dL POC Glucose 205 H (83-110) mg/dL Calcium (8.5-10.1) mg/dL Magnesium (1.8-2.4) mg/dl C-Reactive Protein (<1.0) mg/dL Adenovirus (PCR) (Not Detected) B. pertussis DNA (PCR) (Not Detected) B.parapertussis DNA PCR (Not Detected) C. pneumoniae DNA (PCR) (Not Detected) Coronavirus (PCR) (Not Detected) Human Metapneumovir PCR (Not Detected) Influenza A (RT-PCR) (Not Detected) Influenza B (RT-PCR) (Not Detected) M. pneumoniae (PCR) (Not Detected) Parainfluen 1,2,3,4 PCR (Not Detected) RSV (PCR) (Not Detected) Entero/Rhino (PCR) (Not Detected) Carlos Results Last 24 Hours: Microbiology 08/08/18 15:55 Gram Stain - Preliminary Sputum - Expectorated Sputum Culture - Preliminary 08/08/18 11:54 Aerobic Blood Culture - Preliminary Blood - Venous - Lab Draw NO GROWTH AFTER 2 DAYS Anaerobic Blood Culture - Preliminary NO GROWTH AFTER 2 DAYS 08/08/18 11:47 Aerobic Blood Culture - Preliminary Blood - Venous NO GROWTH AFTER 2 DAYS Anaerobic Blood Culture - Preliminary NO GROWTH AFTER 2 DAYS 08/08/18 18:40 Streptococcus pneumoniae Antigen (M - Final Urine Med Orders - Current: Current Medications Acetaminophen (Tylenol) 650 mg PO Q4H PRN PRN Reason: Pain (Mild 1-3)/fever Albuterol/Ipratropium (Duoneb 3.0-0.5 Mg/3 Ml) 3 ml NEB Q6H PRN PRN Reason: Shortness of Breath Last Admin: 08/10/18 13:13 Dose: 3 ml Albuterol/Ipratropium (Duoneb 3.0-0.5 Mg/3 Ml) 3 ml NEB BIDRT [facility] Last Admin: 08/10/18 11:31 Dose: Not Given Alogliptin Benzoate (Alogliptin) 25 mg PO DAILY [facility] Last Admin: 08/10/18 08:21 Dose: 25 mg Artificial Tears (Refresh Liquigel 1%) 0 ml EYEBOTH BID [facility] Last Admin: 08/10/18 08:30 Dose: 1 drop Aspirin (Halfprin) 81 mg PO DAILY [facility] Last Admin: 08/10/18 08:28 Dose: 81 mg Benzonatate (Tessalon Perles) 100 mg PO BID PRN PRN Reason: Cough Bisacodyl (Dulcolax) 5 mg PO DAILY PRN PRN Reason: Constipation Brimonidine Tartrate (Alphagan 0.2% Ophth Soln) 0 ml EYEBOTH BID [facility] Last Admin: 08/10/18 08:22 Dose: 1 drop Celecoxib (Celebrex) 200 mg PO DAILY [facility] Last Admin: 08/10/18 08:23 Dose: 200 mg Dextrose/Water (Dextrose 50% In Water) 50 ml IVPUSH ASDIRECTED PRN PRN Reason: Hypoglycemia Diphenhydramine HCl (Benadryl) 25 mg IVPUSH Q4H PRN PRN Reason: Rash/allergic rxn Docusate Sodium (Colace) 100 mg PO BID PRN PRN Reason: Constipation Famotidine (Pepcid) 20 mg PO DAILY [facility] Last Admin: 08/10/18 08:29 Dose: 20 mg Furosemide (Lasix) 20 mg PO DAILY [facility] Last Admin: 08/10/18 08:28 Dose: 20 mg Guaifenesin (Mucinex) 600 mg PO BID [facility] Last Admin: 08/10/18 08:29 Dose: 600 mg Guaifenesin/Phenylephrine HCl (Robitussin Dm) 10 ml PO TID@0700,1400,2100 [facility] Azithromycin 500 mg/ Sodium (Chloride) 250 mls @ 250 mls/hr IV Q24H [facility] Last Admin: 08/09/18 17:29 Dose: 250 mls/hr Promethazine HCl 6.25 mg/ (Sodium Chloride) 50.25 mls @ 100 mls/hr IV Q6H PRN PRN Reason: Nausea/Vomiting Ceftriaxone Sodium 2 gm/ (Sodium Chloride) 100 mls @ 200 mls/hr IV Q24H [facility] Last Admin: 08/10/18 08:42 Dose: 200 mls/hr Insulin Glargine (Lantus) 15 unit SUBCUT BID [facility] Insulin Human Lispro (Humalog) 0 unit SUBCUT QIDACANDBED [facility]; Protocol Last Admin: 08/10/18 12:00 Dose: 6 units Levalbuterol HCl (Xopenex) 1.25 mg NEB TID PRN PRN Reason: Wheezing Last Admin: 08/10/18 08:15 Dose: 1.25 mg Losartan Potassium (Cozaar) 25 mg PO DAILY [facility] Last Admin: 08/10/18 08:24 Dose: 25 mg Magnesium Hydroxide (Milk Of Magnesia) 30 ml PO Q12H PRN PRN Reason: Constipation Magnesium Oxide (Magnesium Oxide) 400 mg PO DAILY [facility] Metoprolol Succinate (Toprol Xl) 25 mg PO DAILY [facility] Last Admin: 08/10/18 08:31 Dose: 25 mg Miscellaneous Information (Remove Patch) 1 ea TRDERM DAILY [facility] Last Admin: 08/10/18 08:31 Dose: 1 ea Multivitamins (Thera) 1 each PO DAILY [facility] Last Admin: 08/10/18 08:31 Dose: 1 each Nicotine (Habitrol) 7 mg TRDERM DAILY [facility] Last Admin: 08/10/18 08:24 Dose: 7 mg Nitroglycerin (Nitrostat) 0.4 mg SL Q5M PRN PRN Reason: Chest Pain Roflumilast 500 Mcg (Ptom) 0 each PO DAILY [facility] Last Admin: 08/10/18 08:30 Dose: Not Given Polyethylene Glycol (Miralax) 17 gm PO DAILY PRN PRN Reason: Constipation Promethazine HCl (Phenergan) 25 mg PO Q6H PRN PRN Reason: Nausea/Vomiting Saccharomyces Boulardii (Florastor) 250 mg PO BID [facility] Last Admin: 08/10/18 08:24 Dose: 250 mg Senna/Docusate Sodium (Senna Plus) 1 tab PO BID PRN PRN Reason: Constipation Sertraline HCl (Zoloft) 50 mg PO DAILY [facility] Last Admin: 08/10/18 08:32 Dose: 50 mg Simvastatin (Zocor) 40 mg PO BEDTIME [facility] Last Admin: 08/09/18 22:26 Dose: 40 mg Sodium Chloride (Saline Flush) 10 ml FLUSH ASDIRECTED PRN PRN Reason: Keep Vein Open Last Admin: 08/08/18 09:18 Dose: 10 ml Tramadol HCl (Ultram) 50 mg PO QID PRN PRN Reason: Pain Discontinued Medications Albuterol/Ipratropium (Duoneb 3.0-0.5 Mg/3 Ml) 3 ml NEB ONETIME ONE Stop: 08/08/18 09:31 Last Admin: 08/08/18 10:03 Dose: 3 ml Benzonatate (Tessalon Perles) 100 mg PO BID [facility] Last Admin: 08/10/18 08:31 Dose: 100 mg Bumetanide (Bumex) 0.5 mg IVPUSH ONETIME ONE Stop: 08/10/18 14:01 Glipizide (Glucotrol) 10 mg PO DAILY [facility] Last Admin: 08/09/18 09:48 Dose: 10 mg Guaifenesin/Phenylephrine HCl (Robitussin Dm) 10 ml PO Q6H PRN PRN Reason: Cough/COPD/CONGESTION Sodium Chloride (Normal Saline) 500 mls @ 1,000 mls/hr IV .BOLUS [facility] Last Admin: 08/08/18 09:20 Dose: 1,000 mls/hr Ceftriaxone Sodium 2 gm/ (Sodium Chloride) 100 mls @ 200 mls/hr IV ONETIME ONE Stop: 08/08/18 11:59 Last Admin: 08/08/18 12:42 Dose: Not Given Ceftriaxone Sodium 2 gm/ (Sodium Chloride) 100 mls @ 200 mls/hr IV ONETIME ONE Stop: 08/08/18 12:18 Last Admin: 08/08/18 11:54 Dose: 200 mls/hr Ceftriaxone Sodium 2 gm/ (Sodium Chloride) 100 mls @ 200 mls/hr IV Q24H [facility] Last Admin: 08/09/18 12:50 Dose: Not Given Sodium Chloride (Normal Saline) 1,000 mls @ 100 mls/hr IV ASDIRECTED [facility] Last Admin: 08/09/18 23:28 Dose: 100 mls/hr Insulin Glargine (Lantus) 15 unit SUBCUT BID [facility] Insulin Glargine (Lantus) 8 unit SUBCUT BEDTIME ONE Stop: 08/09/18 21:01 Last Admin: 08/09/18 22:25 Dose: 8 units Magnesium Oxide (Magnesium Oxide) 400 mg PO BID [facility] Last Admin: 08/10/18 08:29 Dose: 400 mg Methylprednisolone Sodium Succinate (Solu-Medrol) 125 mg IVPUSH ONETIME ONE Stop: 08/08/18 11:32 Last Admin: 08/08/18 11:56 Dose: 125 mg Nicotine (Habitrol) 7 mg TRDERM DAILY [facility] Non-Formulary Medication (Lactose-Reduced Food [Ensure Active Clear]) 4 oz PO BID [facility] Last Admin: 08/09/18 12:50 Dose: Not Given - Exam Quality Assessment: Supplemental Oxygen (3L NC), DVT Prophylaxis General: Alert, Oriented, Cooperative, No Acute Distress HEENT: Pupils Equal, Pupils Reactive, EOMI, Mucous Membr. Moist/[place] Neck: Supple Lungs: Normal Respiratory Effort, Wheezing Cardiovascular: Regular Rate, Regular Rhythm GI/Abdominal Exam: Normal Bowel Sounds, Soft, Non-Tender, No Organomegaly, No Distention, No Abnormal Bruit, No Mass, Pelvis Stable (Male) Exam: Deferred Back Exam: Normal Inspection Extremities: Normal Inspection, Normal Range of Motion, Non-Tender, Normal Capillary Refill, Pedal Edema (1+ bilaterally) Peripheral Pulses: 1+: Posterior Tibial (L), Posterior Tibial (R), Dorsalis Pedis (L), Dorsalis Pedis (R) Skin: Warm, Dry, Intact Neurological: No New Focal Deficit Psy/Mental Status: Alert, Normal Affect, Normal Mood - Problem List & Annotations (1) Hypotension SNOMED Code(s): 10480068 Code(s): I95.9 - HYPOTENSION, UNSPECIFIED Status: Acute Priority: High Current Visit: Yes Qualifiers: Hypotension type: unspecified hypotension type Qualified Code(s): I95.9 - Hypotension, unspecified (2) Pneumonia SNOMED Code(s): 489587507 Code(s): J18.9 - PNEUMONIA, UNSPECIFIED ORGANISM Status: Acute Priority: High Current Visit: Yes Qualifiers: Pneumonia type: due to unspecified organism Laterality: left Lung location: lower lobe of lung Qualified Code(s): J18.1 - Lobar pneumonia, unspecified organism (3) Acute kidney injury SNOMED Code(s): 19065070 Code(s): N17.9 - ACUTE KIDNEY FAILURE, UNSPECIFIED Status: Acute Priority : High Current Visit: Yes - Problem List Review Problem List Initiated/Reviewed/Updated: Yes - My Orders Last 24 Hours: My Active Orders 08/11/18 05:11 Chest 2V [CR] AM BASIC METABOLIC PANEL,BMP [CHEM] AM C-REACTIVE PROTEIN [CHEM] AM CBC WITH AUTO DIFF [HEME] AM MAGNESIUM [CHEM] AM 08/12/18 05:11 BASIC METABOLIC PANEL,BMP [CHEM] AM C-REACTIVE PROTEIN [CHEM] AM CBC WITH AUTO DIFF [HEME] AM MAGNESIUM [CHEM] AM 08/13/18 05:11 BASIC METABOLIC PANEL,BMP [CHEM] AM C-REACTIVE PROTEIN [CHEM] AM CBC WITH AUTO DIFF [HEME] AM MAGNESIUM [CHEM] AM - Plan Plan:: Assessment/Plan: PNA vs Bronchitis * Was seen at clinic today by PCP and c/o being weak, dizzy, w/ SOB and cough x 1 day * WBC 16.9--> 16.43, CRP 19.4-->11.5 * CXR shows nothing acute * Repeat CXR 08/10/18 show findings compatible with CHF. Study has worsened from previous exam. * RT/Duonebs/IS/Acapella * Sepsis Protocol: * LA 2.1, Blood cultures show no growth after x 48H * Sputum Culture shows possible pneumocystitis; awaiting formal report * Influenza, Mycoplasma, RVP, Strep pneumo negative * Rocephin given in ED--> continue and add Azithromycin * Solumedrol given in ED--> D/C for now; elevates Blood Glucose which is a concern from family * Robitussin DM PRN CHF exacerbation * BNP elevated 5906--> 6898 * ECHO 08/09/18 shows HFrEF; no previous study to compare to: * LVEF 40-45% * Mildly decreased and segmental L ventricular systolic function * Grade 2 pattern of LV diastolic filling * Mild aortic valve sclerosis without stenosis * Mod mitral valve regurg * Mild pulmonic valve regurg * R ventricular sys pressure mild to mod elevated at 44mmHg * Repeat CXR 08/10/18 show findings compatible with CHF. Study has worsened from previous exam. 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 Coyle
[2018-08-10] MEDS ORDERED: Furosemide 20 MG/2 ML VIAL IVPUSH SCH (14:45)
[2018-08-10] MEDS: guaiFENesin/Dextromethorphan 100-10 MG/5 ML Soln 5 ML Cup PO SCH ×2 (14:55→21:15)
[2018-08-10] MEDS: Azithromycin 500 MG in Sodium Chloride 0.9% 250 ML IV SCH (17:33)
[2018-08-10] MEDS ORDERED: Non-Formulary Medication 1 Each (Carboxymethylcellulose Sodium 1 DROP) EYEBOTH SCH (21:00)
[2018-08-10] MEDS: Bumetanide 1 MG/4 ML MDV IVPUSH SCH ×3 (21:07→21:39)
[2018-08-10] MEDS: Simvastatin 40 MG Tab PO SCH (21:18)
[2018-08-10] MEDS: glipiZIDE 2.5 MG Tab.ER PO SCH (21:19)
[2018-08-10] MEDS: Insulin Glarg,Human.Rec.Analog 100 UNIT/ML ML SUBCUT SCH (21:19)
[2018-08-10] MEDS: Temazepam 7.5 MG Cap PO PRN (22:31)
[2018-08-11] MEDS: Bumetanide 1 MG/4 ML MDV IVPUSH SCH ×2 (06:13→14:45)
[2018-08-11] MEDS: Hydrochlorothiazide 12.5 MG Cap PO SCH ×2 (06:13→13:13)
[2018-08-11] MEDS: guaiFENesin/Dextromethorphan 100-10 MG/5 ML Soln 5 ML Cup PO SCH ×3 (06:13→21:21)
[2018-08-11] MEDS: Albuterol/Ipratropium 3.0-0.5 MG/3 ML Neb Soln NEB SCH ×2 (06:19→20:19)
--- NOTE | 2018-08-11 07:16 | PCM.PN ---
- General Info Date of Service: 08/11/18 Admission Dx/Problem (Free Text): Admission Diagnosis/Problem Admission Diagnosis/Problem Pneumonia Subjective Update: Follow Up Functional Status: Reports: Pain Controlled, Tolerating Diet, Ambulating, Urinating. Denies: New Symptoms - Review of Systems General: Denies: Fever, Chills HEENT: Reports: No Symptoms Pulmonary: Reports: Cough, Sputum. Denies: Shortness of Breath, Wheezing Cardiovascular: Denies: Chest Pain, Dyspnea on Exertion, Edema, Lightheadedness Gastrointestinal: Denies: Abdominal Pain, Nausea, Vomiting Genitourinary: Reports: No Symptoms Musculoskeletal: Reports: No Symptoms Skin: Denies: Cyanosis, Mottled, Pallor, Diaphoresis, Bruising Neurological: Reports: Gait Disturbance. Denies: Confusion, Difficulty Walking , Weakness Psychiatric: Denies: Depression, Anxiety, Agitation, Hallucinations Systems Review Comment:: No overnight issues. He rested a little better last night and he feels much better than yesterday. He still has cough but no audible wheezing. He is still on 3L NC at baseline. - Patient Data Vitals - Most Recent: Last Vital Signs Temp 36.8 C 08/10/18 22:24 Pulse 74 08/10/18 22:24 Resp 18 08/10/18 22:24 BP 114/94 H 08/10/18 22:24 Pulse Ox 97 08/11/18 06:21 Weight - Most Recent: 81.284 kg I&O - Last 24 Hours: Intake & Output 08/10/18 08/11/18 08/11/18 22:59 06:59 14:59 Intake Total 760 700 Output Total 1650 3315 Balance -890 -9442 Lab Results Last 24 Hours: Laboratory Results - last 24 hr 08/10/18 08/10/18 08/10/18 Range/Units 06:14 06:47 06:47 WBC (4.23-9.07) K/mm3 RBC (4.63-6.08) M/mm3 Hgb (13.7-17.5) gm/L Hct (40.1-51.0) % MCV (79.0-92.2) fl MCH (25.7-32.2) pg MCHC (32.2-35.5) g/dl RDW Std Deviation (35.1-43.9) fL Plt Count (163-337) K/mm3 MPV (9.4-12.3) fl Neut % (Auto) (34.0-67.9) % Lymph % (Auto) (21.8-53.1) % Bee % (Auto) (5.3-12.2) % Eos % (Auto) (0.8-7.0) Baso % (Auto) (0.1-1.2) % Neut # (Auto) (1.78-5.38) K/mm3 Lymph # (Auto) (1.32-3.57) K/mm3 Bee # (Auto) (0.30-0.82) K/mm3 Eos # (Auto) (0.04-0.54) K/mm3 Baso # (Auto) (0.01-0.08) K/mm3 Manual Slide Review Abnormal smear Sodium 139 (136-145) mEq/L Potassium 4.4 (3.5-5.1) mEq/L Chloride 105 (98-107) mEq/L Carbon Dioxide 28 (21-32) mEq/L Anion Gap 10.4 (5-15) BUN 24 H (7-18) mg/dL Creatinine 1.1 (0.7-1.3) mg/dL Est Cr Clr Drug Dosing 50.39 mL/min Estimated GFR (MDRD) > 60 (>60) mL/min BUN/Creatinine Ratio 21.8 H (14-18) Glucose 139 H (83-115) mg/dL POC Glucose 155 H (83-110) mg/dL Calcium 9.0 (8.5-10.1) mg/dL Magnesium 1.9 (1.8-2.4) mg/dl C-Reactive Protein 11.5 H* (<1.0) mg/dL NT-Pro-B Natriuret Pep (0-450) pg/mL 08/10/18 08/10/18 08/10/18 Range/Units 11:38 15:15 16:23 WBC (4.23-9.07) K/mm3 RBC (4.63-6.08) M/mm3 Hgb (13.7-17.5) gm/L Hct (40.1-51.0) % MCV (79.0-92.2) fl MCH (25.7-32.2) pg MCHC (32.2-35.5) g/dl RDW Std Deviation (35.1-43.9) fL Plt Count (163-337) K/mm3 MPV (9.4-12.3) fl Neut % (Auto) (34.0-67.9) % Lymph % (Auto) (21.8-53.1) % Bee % (Auto) (5.3-12.2) % Eos % (Auto) (0.8-7.0) Baso % (Auto) (0.1-1.2) % Neut # (Auto) (1.78-5.38) K/mm3 Lymph # (Auto) (1.32-3.57) K/mm3 Bee # (Auto) (0.30-0.82) K/mm3 Eos # (Auto) (0.04-0.54) K/mm3 Baso # (Auto) (0.01-0.08) K/mm3 Manual Slide Review Sodium (136-145) mEq/L Potassium (3.5-5.1) mEq/L Chloride (98-107) mEq/L Carbon Dioxide (21-32) mEq/L Anion Gap (5-15) BUN (7-18) mg/dL Creatinine (0.7-1.3) mg/dL Est Cr Clr Drug Dosing mL/min Estimated GFR (MDRD) (>60) mL/min BUN/Creatinine Ratio (14-18) Glucose (83-115) mg/dL POC Glucose 205 H 300 H (83-110) mg/dL Calcium (8.5-10.1) mg/dL Magnesium (1.8-2.4) mg/dl C-Reactive Protein (<1.0) mg/dL NT-Pro-B Natriuret Pep 6898 H (0-450) pg/mL 08/10/18 08/11/18 08/11/18 Range/Units 21:10 06:00 06:00 WBC 12.28 H (4.23-9.07) K/mm3 RBC 3.22 L (4.63-6.08) M/mm3 Hgb 9.8 L (13.7-17.5) gm/L Hct 31.3 L (40.1-51.0) % MCV 97.2 H (79.0-92.2) fl MCH 30.4 (25.7-32.2) pg MCHC 31.3 L (32.2-35.5) g/dl RDW Std Deviation 44.9 H (35.1-43.9) fL Plt Count 244 (163-337) K/mm3 MPV 10.1 (9.4-12.3) fl Neut % (Auto) 79.5 H (34.0-67.9) % Lymph % (Auto) 10.3 L (21.8-53.1) % Bee % (Auto) 7.7 (5.3-12.2) % Eos % (Auto) 1.7 (0.8-7.0) Baso % (Auto) 0.2 (0.1-1.2) % Neut # (Auto) 9.77 H (1.78-5.38) K/mm3 Lymph # (Auto) 1.26 L (1.32-3.57) K/mm3 Bee # (Auto) 0.95 H (0.30-0.82) K/mm3 Eos # (Auto) 0.21 (0.04-0.54) K/mm3 Baso # (Auto) 0.02 (0.01-0.08) K/mm3 Manual Slide Review Sodium 140 (136-145) mEq/L Potassium 3.5 (3.5-5.1) mEq/L Chloride 103 (98-107) mEq/L Carbon Dioxide 31 (21-32) mEq/L Anion Gap 9.5 (5-15) BUN 20 H (7-18) mg/dL Creatinine 1.0 (0.7-1.3) mg/dL Est Cr Clr Drug Dosing 55.43 mL/min Estimated GFR (MDRD) > 60 (>60) mL/min BUN/Creatinine Ratio 20.0 H (14-18) Glucose 136 H (83-115) mg/dL POC Glucose 198 H (83-110) mg/dL Calcium 9.0 (8.5-10.1) mg/dL Magnesium 1.7 L (1.8-2.4) mg/dl C-Reactive Protein 11.3 H* (<1.0) mg/dL NT-Pro-B Natriuret Pep (0-450) pg/mL 08/11/18 Range/Units 06:01 WBC (4.23-9.07) K/mm3 RBC (4.63-6.08) M/mm3 Hgb (13.7-17.5) gm/L Hct (40.1-51.0) % MCV (79.0-92.2) fl MCH (25.7-32.2) pg MCHC (32.2-35.5) g/dl RDW Std Deviation (35.1-43.9) fL Plt Count (163-337) K/mm3 MPV (9.4-12.3) fl Neut % (Auto) (34.0-67.9) % Lymph % (Auto) (21.8-53.1) % Bee % (Auto) (5.3-12.2) % Eos % (Auto) (0.8-7.0) Baso % (Auto) (0.1-1.2) % Neut # (Auto) (1.78-5.38) K/mm3 Lymph # (Auto) (1.32-3.57) K/mm3 Bee # (Auto) (0.30-0.82) K/mm3 Eos # (Auto) (0.04-0.54) K/mm3 Baso # (Auto) (0.01-0.08) K/mm3 Manual Slide Review Sodium (136-145) mEq/L Potassium (3.5-5.1) mEq/L Chloride (98-107) mEq/L Carbon Dioxide (21-32) mEq/L Anion Gap (5-15) BUN (7-18) mg/dL Creatinine (0.7-1.3) mg/dL Est Cr Clr Drug Dosing mL/min Estimated GFR (MDRD) (>60) mL/min BUN/Creatinine Ratio (14-18) Glucose (83-115) mg/dL POC Glucose 144 H (83-110) mg/dL Calcium (8.5-10.1) mg/dL Magnesium (1.8-2.4) mg/dl C-Reactive Protein (<1.0) mg/dL NT-Pro-B Natriuret Pep (0-450) pg/mL Carlos Results Last 24 Hours: Microbiology 08/08/18 15:55 Gram Stain - Preliminary Sputum - Expectorated Sputum Culture - Preliminary Gram Negative Coccobacilli 08/08/18 11:54 Aerobic Blood Culture - Preliminary Blood - Venous - Lab Draw NO GROWTH AFTER 2 DAYS Anaerobic Blood Culture - Preliminary NO GROWTH AFTER 2 DAYS 08/08/18 11:47 Aerobic Blood Culture - Preliminary Blood - Venous NO GROWTH AFTER 2 DAYS Anaerobic Blood Culture - Preliminary NO GROWTH AFTER 2 DAYS Med Orders - Current: Current Medications Acetaminophen (Tylenol) 650 mg PO Q4H PRN PRN Reason: Pain (Mild 1-3)/fever Albuterol/Ipratropium (Duoneb 3.0-0.5 Mg/3 Ml) 3 ml NEB Q6H PRN PRN Reason: Shortness of Breath Last Admin: 08/10/18 13:13 Dose: 3 ml Albuterol/Ipratropium (Duoneb 3.0-0.5 Mg/3 Ml) 3 ml NEB BIDRT [facility] Last Admin: 08/11/18 06:19 Dose: 3 ml Alogliptin Benzoate (Alogliptin) 25 mg PO DAILY [facility] Last Admin: 08/10/18 08:21 Dose: 25 mg Artificial Tears (Refresh Liquigel 1%) 0 ml EYEBOTH BID [facility] Last Admin: 08/10/18 21:17 Dose: 1 drop Aspirin (Halfprin) 81 mg PO DAILY [facility] Last Admin: 08/10/18 08:28 Dose: 81 mg Benzonatate (Tessalon Perles) 100 mg PO BID PRN PRN Reason: Cough Bisacodyl (Dulcolax) 5 mg PO DAILY PRN PRN Reason: Constipation Brimonidine Tartrate (Alphagan 0.2% [facility] Sol) 0 ml EYEBOTH BID [facility] Last Admin: 08/10/18 21:17 Dose: 1 drop Bumetanide (Bumex) 0.5 mg IVPUSH BIDDIURETIC [facility] Last Admin: 08/11/18 06:13 Dose: 0.5 mg Celecoxib (Celebrex) 200 mg PO DAILY [facility] Last Admin: 08/10/18 08:23 Dose: 200 mg Dextrose/Water (Dextrose 50% In Water) 50 ml IVPUSH ASDIRECTED PRN PRN Reason: Hypoglycemia Diphenhydramine HCl (Benadryl) 25 mg IVPUSH Q4H PRN PRN Reason: Rash/allergic rxn Docusate Sodium (Colace) 100 mg PO BID PRN PRN Reason: Constipation Famotidine (Pepcid) 20 mg PO DAILY [facility] Last Admin: 08/10/18 08:29 Dose: 20 mg Glipizide (Glucotrol Xl) 2.5 mg PO BID [facility] Last Admin: 08/10/18 21:19 Dose: 2.5 mg Guaifenesin (Mucinex) 600 mg PO BID [facility] Last Admin: 08/10/18 21:18 Dose: 600 mg Guaifenesin/Phenylephrine HCl (Robitussin Dm) 10 ml PO TID@0700,1400,2100 [facility] Last Admin: 08/11/18 06:13 Dose: 10 ml Hydrochlorothiazide (Hydrochlorothiazide) 12.5 mg PO BIDDIURETIC [facility] Last Admin: 08/11/18 06:13 Dose: 12.5 mg Azithromycin 500 mg/ Sodium (Chloride) 250 mls @ 250 mls/hr IV Q24H [facility] Last Admin: 08/10/18 17:33 Dose: 250 mls/hr Promethazine HCl 6.25 mg/ (Sodium Chloride) 50.25 mls @ 100 mls/hr IV Q6H PRN PRN Reason: Nausea/Vomiting Ceftriaxone Sodium 2 gm/ (Sodium Chloride) 100 mls @ 200 mls/hr IV Q24H [facility] Last Admin: 08/10/18 08:42 Dose: 200 mls/hr Insulin Glargine (Lantus) 15 unit SUBCUT BID [facility] Last Admin: 08/10/18 21:19 Dose: 15 unit Insulin Human Lispro (Humalog) 0 unit SUBCUT QIDACANDBED [facility]; Protocol Last Admin: 08/10/18 21:30 Dose: 3 units Levalbuterol HCl (Xopenex) 1.25 mg NEB TID PRN PRN Reason: Wheezing Last Admin: 08/10/18 08:15 Dose: 1.25 mg Losartan Potassium (Cozaar) 25 mg PO DAILY [facility] Last Admin: 08/10/18 08:24 Dose: 25 mg Magnesium Hydroxide (Milk Of Magnesia) 30 ml PO Q12H PRN PRN Reason: Constipation Magnesium Oxide (Magnesium Oxide) 400 mg PO DAILY [facility] Metoprolol Succinate (Toprol Xl) 25 mg PO DAILY [facility] Last Admin: 08/10/18 08:31 Dose: 25 mg Miscellaneous Information (Remove Patch) 1 ea TRDERM DAILY [facility] Last Admin: 08/10/18 08:31 Dose: 1 ea Multivitamins (Thera) 1 each PO DAILY [facility] Last Admin: 08/10/18 08:31 Dose: 1 each Nicotine (Habitrol) 7 mg TRDERM DAILY [facility] Last Admin: 08/10/18 08:24 Dose: 7 mg Nitroglycerin (Nitrostat) 0.4 mg SL Q5M PRN PRN Reason: Chest Pain Roflumilast 500 Mcg (Ptom) 0 each PO DAILY [facility] Last Admin: 08/10/18 08:30 Dose: Not Given Polyethylene Glycol (Miralax) 17 gm PO DAILY PRN PRN Reason: Constipation Promethazine HCl (Phenergan) 25 mg PO Q6H PRN PRN Reason: Nausea/Vomiting Saccharomyces Boulardii (Florastor) 250 mg PO BID [facility] Last Admin: 08/10/18 21:18 Dose: 250 mg Senna/Docusate Sodium (Senna Plus) 1 tab PO BID PRN PRN Reason: Constipation Sertraline HCl (Zoloft) 50 mg PO DAILY [facility] Last Admin: 08/10/18 08:32 Dose: 50 mg Simvastatin (Zocor) 40 mg PO BEDTIME [facility] Last Admin: 08/10/18 21:18 Dose: 40 mg Sodium Chloride (Saline Flush) 10 ml FLUSH ASDIRECTED PRN PRN Reason: Keep Vein Open Last Admin: 08/08/18 09:18 Dose: 10 ml Temazepam (Restoril) 7.5 mg PO BEDTIME PRN PRN Reason: Sleep Last Admin: 08/10/18 22:31 Dose: 7.5 mg Tramadol HCl (Ultram) 50 mg PO QID PRN PRN Reason: Pain Discontinued Medications Albuterol/Ipratropium (Duoneb 3.0-0.5 Mg/3 Ml) 3 ml NEB ONETIME ONE Stop: 08/08/18 09:31 Last Admin: 08/08/18 10:03 Dose: 3 ml Benzonatate (Tessalon Perles) 100 mg PO BID [facility] Last Admin: 08/10/18 08:31 Dose: 100 mg Bumetanide (Bumex) 0.5 mg IVPUSH ONETIME ONE Stop: 08/10/18 14:01 Last Admin: 08/10/18 14:55 Dose: 0.5 mg Bumetanide (Bumex) 0.5 mg IVPUSH BID [facility] Last Admin: 08/10/18 21:39 Dose: Not Given Furosemide (Lasix) 20 mg PO DAILY [facility] Last Admin: 08/10/18 08:28 Dose: 20 mg Glipizide (Glucotrol) 10 mg PO DAILY [facility] Last Admin: 08/09/18 09:48 Dose: 10 mg Guaifenesin/Phenylephrine HCl (Robitussin Dm) 10 ml PO Q6H PRN PRN Reason: Cough/COPD/CONGESTION Sodium Chloride (Normal Saline) 500 mls @ 1,000 mls/hr IV .BOLUS [facility] Last Admin: 08/08/18 09:20 Dose: 1,000 mls/hr Ceftriaxone Sodium 2 gm/ (Sodium Chloride) 100 mls @ 200 mls/hr IV ONETIME ONE Stop: 08/08/18 11:59 Last Admin: 08/08/18 12:42 Dose: Not Given Ceftriaxone Sodium 2 gm/ (Sodium Chloride) 100 mls @ 200 mls/hr IV ONETIME ONE Stop: 08/08/18 12:18 Last Admin: 08/08/18 11:54 Dose: 200 mls/hr Ceftriaxone Sodium 2 gm/ (Sodium Chloride) 100 mls @ 200 mls/hr IV Q24H [facility] Last Admin: 08/09/18 12:50 Dose: Not Given Sodium Chloride (Normal Saline) 1,000 mls @ 100 mls/hr IV ASDIRECTED [facility] Last Admin: 08/09/18 23:28 Dose: 100 mls/hr Insulin Glargine (Lantus) 15 unit SUBCUT BID [facility] Insulin Glargine (Lantus) 8 unit SUBCUT BEDTIME ONE Stop: 08/09/18 21:01 Last Admin: 08/09/18 22:25 Dose: 8 units Magnesium Oxide (Magnesium Oxide) 400 mg PO BID [facility] Last Admin: 08/10/18 08:29 Dose: 400 mg Methylprednisolone Sodium Succinate (Solu-Medrol) 125 mg IVPUSH ONETIME ONE Stop: 08/08/18 11:32 Last Admin: 08/08/18 11:56 Dose: 125 mg Nicotine (Habitrol) 7 mg TRDERM DAILY [facility] Non-Formulary Medication (Lactose-Reduced Food [Ensure Active Clear]) 4 oz PO BID [facility] Last Admin: 08/09/18 12:50 Dose: Not Given - Exam Quality Assessment: Supplemental Oxygen General: Alert HEENT: Pupils Equal, Pupils Reactive, Mucous Membr. Moist/[place] Neck: Supple Lungs: Normal Respiratory Effort, Decreased Breath Sounds, Wheezing (mild) Cardiovascular: Regular Rate, Regular Rhythm GI/Abdominal Exam: Normal Bowel Sounds, Soft, No Organomegaly, No Distention, No Abnormal Bruit (Male) Exam: Deferred Back Exam: Normal Inspection, Decreased Range of Motion Extremities: Normal Inspection, Normal Range of Motion, Non-Tender, No Pedal Edema, Normal Capillary Refill Peripheral Pulses: 2+: Dorsalis Pedis (L), Dorsalis Pedis (R) Skin: Warm, Dry, Intact Neurological: No New Focal Deficit. No: Normal Gait Psy/Mental Status: Alert, Normal Affect, Normal Mood - Problem List Review Problem List Initiated/Reviewed/Updated: Yes - My Orders Last 24 Hours: My Active Orders 08/10/18 09:37 Benzonatate [Tessalon Perles] 100 mg PO BID PRN 08/10/18 09:39 Albuterol/Ipratropium [DuoNeb 3.0-0.5 MG/3 ML] 3 ml NEB Q6H PRN 08/10/18 09:45 Albuterol/Ipratropium [DuoNeb 3.0-0.5 MG/3 ML] 3 ml NEB BIDRT 08/10/18 14:00 Dextromethorphan/guaiFENesin [Robitussin DM] 10 ml PO TID@0700,1400,2100 08/10/18 21:00 Insulin Glarg,Human.Rec.Analog [LantUS] 15 unit SUBCUT BID glipiZIDE [Glucotrol XL] 2.5 mg PO BID 08/11/18 06:00 Bumetanide [Bumex] 0.5 mg IVPUSH BIDDIURETIC hydroCHLOROthiazide 12.5 mg PO BIDDIURETIC 08/11/18 09:00 Magnesium Oxide 400 mg PO DAILY - Plan Plan:: Assessment/Plan: PNA (Increasing Density Within Right Lung Base plus Gram Neg Coccobacilli) * Was seen at clinic today by PCP and c/o being weak, dizzy, w/ SOB and cough x 1 day * WBC 16.9--> 16.43--> 12.28, CRP 19.4-->11.5--.11.3 * CXR shows nothing acute * Repeat CXR 08/11/18 increasing density within the right lung base * RT/Duonebs/IS/Acapella (I do think he uses his IS and FV; I have been encouraging him each time I check on him * Sepsis Protocol: * LA 2.1, Blood cultures show no growth after x 48H * Sputum Culture shows GN Coccobacilli * Influenza, Mycoplasma, RVP, Strep pneumo negative * Continue IV Rocephin and Azithromycin; okay to switch to oral * Solumedrol given in ED--> D/C for now; elevates Blood Glucose which is a concern from family * Bretitusindia DM changes to scheduled CHF Exacerbation, Stable * BNP elevated 5906--> 689--> 7317 (does not make any sense his weight is 81 kg ; he weighs a lot less now); He got an additional low dose Bumex last night of 0.5 IVP * ECHO 08/09/18 shows HFrEF; no previous study to compare to: * LVEF 40-45% * Mildly decreased and segmental L ventricular systolic function * Grade 2 pattern of LV diastolic filling * Mild aortic valve sclerosis without stenosis * Mod mitral valve regurg * Mild pulmonic valve regurg * R ventricular sys pressure mild to mod elevated at 44mmHg * Repeat CXR 08/11/18 shows Stable CHF * Bumex 0.5 IVP BID plus added HCTZ 12.5 BID * 2g sodium restriction diet, 2L fluid restriction Anemia, Stable * Hgb 8.9-->10.6--> 9.8 * Monitor * Replenish with PRBCs PRN Resolved: Hypotension, Improving * Likely 2/2 decreased intake * BP 84/23 * Monitor * IVF * Dietary Consult SHEREEN, unsure of baseline * GFR 48 (CKD III)--> >60, Cr 1.4--> 1.1 * Last year GFR >60 (CKD II) * Monitor * IVF Chronic: HTN HLD CAD s/p CABG and stents CHF SOB on exertion Cardiomegaly DM2, BS is much improved Recurrent Bronchitis/PNA COPD 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 He has not required to go up on his baseline supplemental O2. Droplet Precautions Routine AM Labs ADA/Heart Healthy Diet/Fluid Restriction DVT/GI prophylaxis CM/SW for d/c planning PT/OT assess and treat Encourage to use IS and FV as directed; he lacks motivation Code Status: DNR/DNI; PCP: Dr. Coyle LOS anticipate > 96hrs due to slow response to treatment. He is not very motivated to do pulmonary exercise.
[2018-08-11] MEDS: Insulin Lispro 100 UNIT/ML 10 ML VIAL SUBCUT SCH ×4 (08:38→21:23)
[2018-08-11] MEDS: cefTRIAXone 2 GM in Sodium Chloride 0.9% 100 ML IV SCH (08:43)
[2018-08-11] MEDS: guaiFENesin 600 MG Tab.ER PO SCH ×2 (08:53→21:21)
[2018-08-11] MEDS: Celecoxib 100 MG Cap PO SCH (08:53)
[2018-08-11] MEDS: Multivitamins,Therapeutic Tab PO SCH (08:54)
[2018-08-11] MEDS: Magnesium Oxide 400 MG Tab PO SCH (08:55)
[2018-08-11] MEDS: Losartan 25 MG Tab PO SCH (08:55)
[2018-08-11] MEDS: Aspirin 81 MG Tab.EC PO SCH (08:55)
[2018-08-11] MEDS: Sertraline 50 MG Tab PO SCH (08:55)
[2018-08-11] MEDS: Famotidine 20 MG Tab PO SCH (08:56)
[2018-08-11] MEDS: Metoprolol Succinate 25 MG Tab.ER PO SCH (08:56)
[2018-08-11] MEDS: Saccharomyces Boulardii (Probiotic) 250 MG Cap PO SCH ×2 (08:56→21:20)
[2018-08-11] MEDS: glipiZIDE 2.5 MG Tab.ER PO SCH ×2 (08:56→21:21)
[2018-08-11] MEDS: Insulin Glarg,Human.Rec.Analog 100 UNIT/ML ML SUBCUT SCH ×2 (09:01→21:22)
[2018-08-11] MEDS: Roflumilast 500 MCG **PTOM PO SCH (09:03)
[2018-08-11] MEDS: Nicotine 7 MG/24 Hr Patch TRDERM SCH (09:04)
[2018-08-11] MEDS: Brimonidine 0.2% Ophth Soln 5 ML Bottle EYEBOTH SCH ×2 (09:08→21:25)
[2018-08-11] MEDS: Carboxymethylcellulose Sodium 1% Ophth Gel 15 ML Bottle EYEBOTH SCH ×2 (09:10→21:24)
--- NOTE | 2018-08-11 10:31 | CR ---
Chest: 2 views of the chest were obtained. Comparison: Prior chest x-ray of 08/10/18. Increasing density is noted within the right lung base. Other parenchymal densities are stable from previous exam. Stable pleural thickening along the lateral left chest. Heart is enlarged. Previous sternotomy noted. Impression: 1. Stable findings of CHF. 2. Increasing density within the right lung base from prior study which may represent superimposed pneumonia if patient has infectious symptoms. Findings could also represent changes of aspiration. Diagnostic code #3
[2018-08-11] MEDS ORDERED: Bumetanide 1 MG/4 ML MDV IVPUSH ONE ×2 (14:00)
[2018-08-11] MEDS: Azithromycin 250 MG Tab PO SCH (17:16)
[2018-08-11] MEDS ORDERED: Tiotropium Inhaler 18 MCG Inhalation Powder Cap Kit of 5 INH SCH (18:00)
[2018-08-11] MEDS ORDERED: Albuterol/Ipratropium 3.0-0.5 MG/3 ML Neb Soln NEB SCH (21:00)
[2018-08-11] MEDS: Temazepam 7.5 MG Cap PO PRN (21:20)
[2018-08-11] MEDS: Simvastatin 40 MG Tab PO SCH (21:20)
[2018-08-12] MEDS: Hydrochlorothiazide 12.5 MG Cap PO SCH ×2 (05:21→14:53)
[2018-08-12] MEDS: Bumetanide 1 MG/4 ML MDV IVPUSH SCH ×2 (05:22→14:52)
[2018-08-12] MEDS: Glycopyrrolate 15.6 MCG Cap.W.Dev Kit of 6 IH SCH ×2 (06:26→20:27)
[2018-08-12] MEDS: Albuterol/Ipratropium 3.0-0.5 MG/3 ML Neb Soln NEB SCH ×2 (06:26→20:27)
[2018-08-12] MEDS: guaiFENesin/Dextromethorphan 100-10 MG/5 ML Soln 5 ML Cup PO SCH ×3 (07:04→21:33)
--- NOTE | 2018-08-12 07:44 | PCM.PN ---
- General Info Date of Service: 08/12/18 Admission Dx/Problem (Free Text): Admission Diagnosis/Problem Admission Diagnosis/Problem Pneumonia Subjective Update: Follow Up Functional Status: Reports: Pain Controlled, Tolerating Diet, Urinating. Denies : New Symptoms - Review of Systems General: Denies: Fever, Chills HEENT: Reports: No Symptoms Pulmonary: Reports: Cough, Sputum. Denies: Shortness of Breath Cardiovascular: Denies: Chest Pain, Dyspnea on Exertion, Lightheadedness Gastrointestinal: Denies: Abdominal Pain, Nausea, Vomiting Genitourinary: Reports: Frequency Musculoskeletal: Reports: No Symptoms Skin: Denies: Jaundice, Pallor, Diaphoresis, Bruising Neurological: Reports: Difficulty Walking. Denies: Confusion, Weakness, Gait Disturbance Psychiatric: Denies: Depression, Anxiety, Agitation, Hallucinations Systems Review Comment:: No significant overnight issues. However he did not sleep well last night (he forgot to ask for his sleeping pills). His labs are better this morning. He has no new complaints. - Patient Data Vitals - Most Recent: Last Vital Signs Temp 36.4 C 08/12/18 05:09 Pulse 64 08/12/18 05:09 Resp 16 08/12/18 05:09 BP 125/66 08/12/18 05:09 Pulse Ox 95 08/12/18 06:29 Weight - Most Recent: 80.286 kg I&O - Last 24 Hours: Intake & Output 08/11/18 08/12/18 08/12/18 22:59 06:59 14:59 Intake Total 850 400 Output Total 1150 1875 Balance -300 -1475 Lab Results Last 24 Hours: Laboratory Results - last 24 hr 08/11/18 08/11/18 08/11/18 Range/Units 06:00 11:41 17:03 WBC (4.23-9.07) K/mm3 RBC (4.63-6.08) M/mm3 Hgb (13.7-17.5) gm/L Hct (40.1-51.0) % MCV (79.0-92.2) fl MCH (25.7-32.2) pg MCHC (32.2-35.5) g/dl RDW Std Deviation (35.1-43.9) fL Plt Count (163-337) K/mm3 MPV (9.4-12.3) fl Neut % (Auto) (34.0-67.9) % Lymph % (Auto) (21.8-53.1) % [place] % (Auto) (5.3-12.2) % Eos % (Auto) (0.8-7.0) Baso % (Auto) (0.1-1.2) % Neut # (Auto) (1.78-5.38) K/mm3 Lymph # (Auto) (1.32-3.57) K/mm3 [place] # (Auto) (0.30-0.82) K/mm3 Eos # (Auto) (0.04-0.54) K/mm3 Baso # (Auto) (0.01-0.08) K/mm3 Sodium (136-145) mEq/L Potassium (3.5-5.1) mEq/L Chloride (98-107) mEq/L Carbon Dioxide (21-32) mEq/L Anion Gap (5-15) BUN (7-18) mg/dL Creatinine (0.7-1.3) mg/dL Est Cr Clr Drug Dosing mL/min Estimated GFR (MDRD) (>60) mL/min BUN/Creatinine Ratio (14-18) Glucose (83-115) mg/dL POC Glucose 287 H 162 H (83-110) mg/dL Calcium (8.5-10.1) mg/dL Magnesium (1.8-2.4) mg/dl C-Reactive Protein (<1.0) mg/dL NT-Pro-B Natriuret Pep 7317 H (0-450) pg/mL 08/11/18 08/12/18 08/12/18 Range/Units 21:01 05:54 05:55 WBC 10.23 H (4.23-9.07) K/mm3 RBC 3.51 L (4.63-6.08) M/mm3 Hgb 10.6 L (13.7-17.5) gm/L Hct 34.2 L (40.1-51.0) % MCV 97.4 H (79.0-92.2) fl MCH 30.2 (25.7-32.2) pg MCHC 31.0 L (32.2-35.5) g/dl RDW Std Deviation 45.6 H (35.1-43.9) fL Plt Count 253 (163-337) K/mm3 MPV 10.2 (9.4-12.3) fl Neut % (Auto) 75.7 H (34.0-67.9) % Lymph % (Auto) 12.0 L (21.8-53.1) % [place] % (Auto) 9.6 (5.3-12.2) % Eos % (Auto) 2.0 (0.8-7.0) Baso % (Auto) 0.1 (0.1-1.2) % Neut # (Auto) 7.75 H (1.78-5.38) K/mm3 Lymph # (Auto) 1.23 L (1.32-3.57) K/mm3 [place] # (Auto) 0.98 H (0.30-0.82) K/mm3 Eos # (Auto) 0.20 (0.04-0.54) K/mm3 Baso # (Auto) 0.01 (0.01-0.08) K/mm3 Sodium (136-145) mEq/L Potassium (3.5-5.1) mEq/L Chloride (98-107) mEq/L Carbon Dioxide (21-32) mEq/L Anion Gap (5-15) BUN (7-18) mg/dL Creatinine (0.7-1.3) mg/dL Est Cr Clr Drug Dosing mL/min Estimated GFR (MDRD) (>60) mL/min BUN/Creatinine Ratio (14-18) Glucose (83-115) mg/dL POC Glucose 208 H 143 H (83-110) mg/dL Calcium (8.5-10.1) mg/dL Magnesium (1.8-2.4) mg/dl C-Reactive Protein (<1.0) mg/dL NT-Pro-B Natriuret Pep (0-450) pg/mL 08/12/18 Range/Units 05:55 WBC (4.23-9.07) K/mm3 RBC (4.63-6.08) M/mm3 Hgb (13.7-17.5) gm/L Hct (40.1-51.0) % MCV (79.0-92.2) fl MCH (25.7-32.2) pg MCHC (32.2-35.5) g/dl RDW Std Deviation (35.1-43.9) fL Plt Count (163-337) K/mm3 MPV (9.4-12.3) fl Neut % (Auto) (34.0-67.9) % Lymph % (Auto) (21.8-53.1) % [place] % (Auto) (5.3-12.2) % Eos % (Auto) (0.8-7.0) Baso % (Auto) (0.1-1.2) % Neut # (Auto) (1.78-5.38) K/mm3 Lymph # (Auto) (1.32-3.57) K/mm3 [place] # (Auto) (0.30-0.82) K/mm3 Eos # (Auto) (0.04-0.54) K/mm3 Baso # (Auto) (0.01-0.08) K/mm3 Sodium 141 (136-145) mEq/L Potassium 3.9 (3.5-5.1) mEq/L Chloride 101 (98-107) mEq/L Carbon Dioxide 34 H (21-32) mEq/L Anion Gap 9.9 (5-15) BUN 19 H (7-18) mg/dL Creatinine 1.1 (0.7-1.3) mg/dL Est Cr Clr Drug Dosing 50.39 mL/min Estimated GFR (MDRD) > 60 (>60) mL/min BUN/Creatinine Ratio 17.3 (14-18) Glucose 130 H (83-115) mg/dL POC Glucose (83-110) mg/dL Calcium 9.4 (8.5-10.1) mg/dL Magnesium 1.9 (1.8-2.4) mg/dl C-Reactive Protein 11.7 H* (<1.0) mg/dL NT-Pro-B Natriuret Pep (0-450) pg/mL Carlos Results Last 24 Hours: Microbiology 08/08/18 11:54 Aerobic Blood Culture - Preliminary Blood - Venous - Lab Draw NO GROWTH AFTER 3 DAYS Anaerobic Blood Culture - Preliminary NO GROWTH AFTER 3 DAYS 08/08/18 11:47 Aerobic Blood Culture - Preliminary Blood - Venous NO GROWTH AFTER 3 DAYS Anaerobic Blood Culture - Preliminary NO GROWTH AFTER 3 DAYS Med Orders - Current: Current Medications Acetaminophen (Tylenol) 650 mg PO Q4H PRN PRN Reason: Pain (Mild 1-3)/fever Albuterol/Ipratropium (Duoneb 3.0-0.5 Mg/3 Ml) 3 ml NEB Q6H PRN PRN Reason: Shortness of Breath Last Admin: 08/10/18 13:13 Dose: 3 ml Albuterol/Ipratropium (Duoneb 3.0-0.5 Mg/3 Ml) 3 ml NEB BIDRT [facility] Last Admin: 08/12/18 06:26 Dose: 3 ml Alogliptin Benzoate (Alogliptin) 25 mg PO DAILY [facility] Last Admin: 08/11/18 08:52 Dose: 25 mg Artificial Tears (Refresh Liquigel 1%) 0 ml EYEBOTH BID [facility] Last Admin: 08/11/18 21:24 Dose: 1 drop Aspirin (Halfprin) 81 mg PO DAILY [facility] Last Admin: 08/11/18 08:55 Dose: 81 mg Azithromycin (Zithromax) 500 mg PO Q24H [facility] Last Admin: 08/11/18 17:16 Dose: 500 mg Benzonatate (Tessalon Perles) 100 mg PO BID PRN PRN Reason: Cough Bisacodyl (Dulcolax) 5 mg PO DAILY PRN PRN Reason: Constipation Brimonidine Tartrate (Alphagan 0.2% [facility]) 0 ml EYEBOTH BID [facility] Last Admin: 08/11/18 21:25 Dose: 1 drop Bumetanide (Bumex) 0.5 mg IVPUSH BIDDIURETIC [facility] Last Admin: 08/12/18 05:22 Dose: 0.5 mg Celecoxib (Celebrex) 200 mg PO DAILY [facility] Last Admin: 08/11/18 08:53 Dose: 200 mg Cephalexin (Keflex) 500 mg PO Q8H [facility] Dextrose/Water (Dextrose 50% In Water) 50 ml IVPUSH ASDIRECTED PRN PRN Reason: Hypoglycemia Diphenhydramine HCl (Benadryl) 25 mg IVPUSH Q4H PRN PRN Reason: Rash/allergic rxn Docusate Sodium (Colace) 100 mg PO BID PRN PRN Reason: Constipation Famotidine (Pepcid) 20 mg PO DAILY [facility] Last Admin: 08/11/18 08:56 Dose: 20 mg Glipizide (Glucotrol Xl) 5 mg PO BID [facility] Glycopyrrolate (Seebri Neohaler) 15.6 mcg IH BIDRT [facility] Last Admin: 08/12/18 06:26 Dose: 1 cap Guaifenesin (Mucinex) 600 mg PO BID [facility] Last Admin: 08/11/18 21:21 Dose: 600 mg Guaifenesin/Phenylephrine HCl (Robitussin Dm) 10 ml PO TID@0700,1400,2100 [facility] Last Admin: 08/12/18 07:04 Dose: 10 ml Hydrochlorothiazide (Hydrochlorothiazide) 12.5 mg PO BIDDIURETIC [facility] Last Admin: 08/12/18 05:21 Dose: 12.5 mg Promethazine HCl 6.25 mg/ (Sodium Chloride) 50.25 mls @ 100 mls/hr IV Q6H PRN PRN Reason: Nausea/Vomiting Insulin Human Lispro (Humalog) 0 unit SUBCUT QIDACANDBED [facility]; Protocol Last Admin: 08/11/18 21:23 Dose: 6 units Levalbuterol HCl (Xopenex) 1.25 mg NEB TID PRN PRN Reason: Wheezing Last Admin: 08/10/18 08:15 Dose: 1.25 mg Losartan Potassium (Cozaar) 25 mg PO DAILY [facility] Last Admin: 08/11/18 08:55 Dose: 25 mg Magnesium Hydroxide (Milk Of Magnesia) 30 ml PO Q12H PRN PRN Reason: Constipation Magnesium Oxide (Magnesium Oxide) 400 mg PO DAILY [facility] Last Admin: 08/11/18 08:55 Dose: 400 mg Metoprolol Succinate (Toprol Xl) 25 mg PO DAILY [facility] Last Admin: 08/11/18 08:56 Dose: 25 mg Miscellaneous Information (Remove Patch) 1 ea TRDERM DAILY [facility] Last Admin: 08/11/18 09:06 Dose: 1 ea Multivitamins (Thera) 1 each PO DAILY [facility] Last Admin: 08/11/18 08:54 Dose: 1 each Nicotine (Habitrol) 7 mg TRDERM DAILY [facility] Last Admin: 08/11/18 09:04 Dose: 7 mg Nitroglycerin (Nitrostat) 0.4 mg SL Q5M PRN PRN Reason: Chest Pain Roflumilast 500 Mcg (Ptom) 0 each PO DAILY [facility] Last Admin: 08/11/18 09:03 Dose: Not Given Polyethylene Glycol (Miralax) 17 gm PO DAILY PRN PRN Reason: Constipation Promethazine HCl (Phenergan) 25 mg PO Q6H PRN PRN Reason: Nausea/Vomiting Saccharomyces Boulardii (Florastor) 250 mg PO BID [facility] Last Admin: 08/11/18 21:20 Dose: 250 mg Senna/Docusate Sodium (Senna Plus) 1 tab PO BID PRN PRN Reason: Constipation Sertraline HCl (Zoloft) 50 mg PO DAILY [facility] Last Admin: 08/11/18 08:55 Dose: 50 mg Simvastatin (Zocor) 40 mg PO BEDTIME [facility] Last Admin: 08/11/18 21:20 Dose: 40 mg Sodium Chloride (Saline Flush) 10 ml FLUSH ASDIRECTED PRN PRN Reason: Keep Vein Open Last Admin: 08/08/18 09:18 Dose: 10 ml Temazepam (Restoril) 7.5 mg PO BEDTIME PRN PRN Reason: Sleep Last Admin: 08/11/18 21:20 Dose: 7.5 mg Tramadol HCl (Ultram) 50 mg PO QID PRN PRN Reason: Pain Discontinued Medications Albuterol/Ipratropium (Duoneb 3.0-0.5 Mg/3 Ml) 3 ml NEB ONETIME ONE Stop: 08/08/18 09:31 Last Admin: 08/08/18 10:03 Dose: 3 ml Albuterol/Ipratropium (Duoneb 3.0-0.5 Mg/3 Ml) 3 ml NEB BIDRT [facility] Benzonatate (Tessalon Perles) 100 mg PO BID [facility] Last Admin: 08/10/18 08:31 Dose: 100 mg Bumetanide (Bumex) 0.5 mg IVPUSH ONETIME ONE Stop: 08/10/18 14:01 Last Admin: 08/10/18 14:55 Dose: 0.5 mg Bumetanide (Bumex) 0.5 mg IVPUSH BID [facility] Last Admin: 08/10/18 21:39 Dose: Not Given Bumetanide (Bumex) 1 mg IVPUSH ONETIME ONE Stop: 08/11/18 14:01 Bumetanide (Bumex) 0.5 mg IVPUSH ONETIME ONE Stop: 08/11/18 14:01 Last Admin: 08/11/18 13:13 Dose: 0.5 mg Furosemide (Lasix) 20 mg PO DAILY [facility] Last Admin: 08/10/18 08:28 Dose: 20 mg Glipizide (Glucotrol) 10 mg PO DAILY [facility] Last Admin: 08/09/18 09:48 Dose: 10 mg Glipizide (Glucotrol Xl) 2.5 mg PO BID [facility] Last Admin: 08/11/18 21:21 Dose: 2.5 mg Guaifenesin/Phenylephrine HCl (Robitussin Dm) 10 ml PO Q6H PRN PRN Reason: Cough/COPD/CONGESTION Sodium Chloride (Normal Saline) 500 mls @ 1,000 mls/hr IV .BOLUS [facility] Last Admin: 08/08/18 09:20 Dose: 1,000 mls/hr Ceftriaxone Sodium 2 gm/ (Sodium Chloride) 100 mls @ 200 mls/hr IV ONETIME ONE Stop: 08/08/18 11:59 Last Admin: 08/08/18 12:42 Dose: Not Given Ceftriaxone Sodium 2 gm/ (Sodium Chloride) 100 mls @ 200 mls/hr IV ONETIME ONE Stop: 08/08/18 12:18 Last Admin: 08/08/18 11:54 Dose: 200 mls/hr Azithromycin 500 mg/ Sodium (Chloride) 250 mls @ 250 mls/hr IV Q24H [facility] Last Admin: 08/10/18 17:33 Dose: 250 mls/hr Ceftriaxone Sodium 2 gm/ (Sodium Chloride) 100 mls @ 200 mls/hr IV Q24H [facility] Last Admin: 08/09/18 12:50 Dose: Not Given Sodium Chloride (Normal Saline) 1,000 mls @ 100 mls/hr IV ASDIRECTED [facility] Last Admin: 08/09/18 23:28 Dose: 100 mls/hr Ceftriaxone Sodium 2 gm/ (Sodium Chloride) 100 mls @ 200 mls/hr IV Q24H [facility] Last Admin: 08/11/18 08:43 Dose: 200 mls/hr Insulin Glargine (Lantus) 15 unit SUBCUT BID [facility] Insulin Glargine (Lantus) 8 unit SUBCUT BEDTIME ONE Stop: 08/09/18 21:01 Last Admin: 08/09/18 22:25 Dose: 8 units Insulin Glargine (Lantus) 15 unit SUBCUT BID [facility] Last Admin: 08/11/18 21:22 Dose: 15 unit Magnesium Oxide (Magnesium Oxide) 400 mg PO BID [facility] Last Admin: 08/10/18 08:29 Dose: 400 mg Methylprednisolone Sodium Succinate (Solu-Medrol) 125 mg IVPUSH ONETIME ONE Stop: 08/08/18 11:32 Last Admin: 08/08/18 11:56 Dose: 125 mg Nicotine (Habitrol) 7 mg TRDERM DAILY [facility] Non-Formulary Medication (Lactose-Reduced Food [Ensure Active Clear]) 4 oz PO BID [facility] Last Admin: 08/09/18 12:50 Dose: Not Given Tiotropium [place] (Spiriva Handihaler) 18 mcg INH DAILY [facility] Last Admin: 08/11/18 20:18 Dose: Not Given - Exam Quality Assessment: Supplemental Oxygen General: Alert, Oriented, Cooperative, No Acute Distress HEENT: Pupils Equal, Pupils Reactive, EOMI, Mucous Membr. Moist/[place] Neck: Supple Lungs: Normal Respiratory Effort, Decreased Breath Sounds. No: Rhonchi, Wheezing Cardiovascular: Regular Rate, Regular Rhythm GI/Abdominal Exam: Normal Bowel Sounds, Soft, Non-Tender, No Organomegaly, No Distention, No Abnormal Bruit, No Mass (Male) Exam: Deferred Back Exam: Normal Inspection, Decreased Range of Motion Extremities: Normal Inspection, Normal Range of Motion, Non-Tender, No Pedal Edema, Normal Capillary Refill Peripheral Pulses: 2+: Dorsalis Pedis (L), Dorsalis Pedis (R) Skin: Warm, Dry, Intact Neurological: No New Focal Deficit (limited but grossly intac). No: Normal Gait Psy/Mental Status: Alert, Normal Affect, Normal Mood - Problem List Review Problem List Initiated/Reviewed/Updated: Yes - My Orders Last 24 Hours: My Active Orders 08/11/18 09:00 Magnesium Oxide 400 mg PO DAILY 08/11/18 17:00 Azithromycin [Zithromax] 500 mg PO Q24H 08/12/18 06:00 Glycopyrrolate [Seebri Neohaler] 15.6 mcg IH BIDRT 08/12/18 08:00 cephALEXin [Keflex] 500 mg PO Q8H 08/12/18 09:00 Insulin Glarg,Human.Rec.Analog [LantUS] 16 unit SUBCUT BID glipiZIDE [Glucotrol XL] 5 mg PO BID - Plan Plan:: Assessment/Plan: PNA (Increasing Density Within Right Lung Base plus Gram Neg Coccobacilli) * Was seen at clinic today by PCP and c/o being weak, dizzy, w/ SOB and cough x 1 day * WBC 16.9--> 16.43--> 12.28, CRP 19.4-->11.5--.11.3 * CXR shows nothing acute * Repeat CXR 08/11/18 increasing density within the right lung base * RT/Duonebs/IS/Acapella (I do think he uses his IS and FV; I have been encouraging him each time I check on him * Sepsis Protocol: * LA 2.1, Blood cultures show no growth after x 48H * Sputum Culture shows H. 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 * Influenza, Mycoplasma, RVP, Strep pneumo negative * Continue Azithromycin and discontinue Keflex * Solumedrol given in ED--> D/C for now; elevates Blood Glucose which is a concern from family * Denita DM changed to scheduled CHF Exacerbation, Improved * BNP elevated 5906--> 689--> 7317--> 2532 [now weighs 77lbs (83lbs on admission )] * ECHO 08/09/18 shows HFrEF; no previous study to compare to: * LVEF 40-45% * Mildly decreased and segmental L ventricular systolic function * Grade 2 pattern of LV diastolic filling * Mild aortic valve sclerosis without stenosis * Mod mitral valve regurg * Mild pulmonic valve regurg * R ventricular sys pressure mild to mod elevated at 44mmHg * Repeat CXR 08/11/18 shows Stable CHF * Bumex 0.5 IVP BID plus added HCTZ 12.5 BID * 2g sodium restriction diet, 2L fluid restriction Hyperglycemia with DM2 * BS on average is fairly controlled * On LA and SA plus Glucotrol 5 mg po BID Resolved: Hypotension, Improving * Likely 2/2 decreased intake * BP 84/23 * Monitor * IVF * Dietary Consult SHEREEN, unsure of baseline * GFR 48 (CKD III)--> >60, Cr 1.4--> 1.1 * Last year GFR >60 (CKD II) * Monitor * IVF Chronic: HTN HLD CAD s/p CABG and stents CHF SOB on exertion Cardiomegaly DM2, BS is much improved Recurrent Bronchitis/PNA COPD 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 He has also been ambulating today Droplet Precautions Routine AM Labs ADA/Heart Healthy Diet/Fluid Restriction DVT/GI prophylaxis CM/SW for d/c planning PT/OT assess and treat if services available Continue to encourage to use IS and FV as directed Code Status: DNR/DNI; PCP: Dr. Coyle Discharge in AM; family would like to leave early in AM for an scheduled appointment
[2018-08-12] MEDS: Insulin Lispro 100 UNIT/ML 10 ML VIAL SUBCUT SCH ×4 (07:56→21:35)
[2018-08-12] MEDS ORDERED: Cephalexin 500 MG Cap PO SCH (08:00)
[2018-08-12] MEDS: Saccharomyces Boulardii (Probiotic) 250 MG Cap PO SCH ×2 (09:39→21:34)
[2018-08-12] MEDS: guaiFENesin 600 MG Tab.ER PO SCH ×2 (09:41→21:33)
[2018-08-12] MEDS: glipiZIDE 5 MG Tab.ER PO SCH ×2 (09:41→21:34)
[2018-08-12] MEDS: Losartan 25 MG Tab PO SCH (09:42)
[2018-08-12] MEDS: Celecoxib 100 MG Cap PO SCH (09:42)
[2018-08-12] MEDS: Famotidine 20 MG Tab PO SCH (09:42)
[2018-08-12] MEDS: Metoprolol Succinate 25 MG Tab.ER PO SCH (09:43)
[2018-08-12] MEDS: Multivitamins,Therapeutic Tab PO SCH (09:43)
[2018-08-12] MEDS: Sertraline 50 MG Tab PO SCH (09:44)
[2018-08-12] MEDS: Aspirin 81 MG Tab.EC PO SCH (09:44)
[2018-08-12] MEDS: Magnesium Oxide 400 MG Tab PO SCH (09:44)
[2018-08-12] MEDS: Brimonidine 0.2% Ophth Soln 5 ML Bottle EYEBOTH SCH ×2 (09:45→21:33)
[2018-08-12] MEDS: Nicotine 7 MG/24 Hr Patch TRDERM SCH (09:47)
[2018-08-12] MEDS: Insulin Glarg,Human.Rec.Analog 100 UNIT/ML ML SUBCUT SCH ×2 (09:50→21:27)
[2018-08-12] MEDS: Carboxymethylcellulose Sodium 1% Ophth Gel 15 ML Bottle EYEBOTH SCH ×2 (09:52→21:33)
[2018-08-12] MEDS: Roflumilast 500 MCG **PTOM PO SCH (09:53)
[2018-08-12] MEDS: Azithromycin 250 MG Tab PO SCH (16:52)
[2018-08-12] MEDS: Temazepam 7.5 MG Cap PO PRN (21:34)
[2018-08-12] MEDS: Simvastatin 40 MG Tab PO SCH (21:34)
[2018-08-13] MEDS: Bumetanide 1 MG/4 ML MDV IVPUSH SCH (05:39)
[2018-08-13] MEDS: guaiFENesin/Dextromethorphan 100-10 MG/5 ML Soln 5 ML Cup PO SCH ×2 (05:40→09:13)
[2018-08-13] MEDS: Hydrochlorothiazide 12.5 MG Cap PO SCH (05:40)
[2018-08-13] MEDS: Albuterol/Ipratropium 3.0-0.5 MG/3 ML Neb Soln NEB SCH (06:13)
[2018-08-13] MEDS: Glycopyrrolate 15.6 MCG Cap.W.Dev Kit of 6 IH SCH (06:13)
[2018-08-13] MEDS: Insulin Lispro 100 UNIT/ML 10 ML VIAL SUBCUT SCH (07:57)
--- NOTE | 2018-08-13 08:55 | CR ---
Chest: Portable view of the chest was obtained. Comparison: Prior chest x-ray of 08/11/18. Heart is slightly enlarged. Lung markings are mildly increased which appear slightly improved from previous exam. Sternotomy is noted. Calcified pleural plaque is noted well within the left and right sides of the lower chest. Bony structures are grossly intact. Impression: 1. Mild pulmonary vascular congestion is noted. Findings are improved from previous study. 2. Other stable findings as noted above. Diagnostic code #3
--- NOTE | 2018-08-13 09:11 | PCM.DCSUM1 ---
Discharge Summary - Hospital Course HPI Initial Comments: This is an 88 yo male with past medical h/o HTN, HLD, CAD s/p CABG and stents, CHF, SOB on exertion, Cardiomegaly, DM2, Recurrent Bronchitis/PNA, COPD, Hypoxia on 3-4L O2 chronically, Urinary incontinence who comes in for possible Bronchitis vs. PNA and hypotension. Was seen at clinic today by PCP and c/o being weak, dizzy, w/ SOB and cough x 1 day. He denies F/C, chest pain, abdominal pain, N/V/D, or other GI/ symptoms. His initial workup in the ED shows a CBC remarkable for WBC 16.96, RBC 2.9, Hgb 8.9, Hct 28.3, MCV 97.6, MCHC 31.4, MPV 9.3, Neut 88.8%, Lymph 5.1%. His chemistry is remarkable for Cr 1.4, GFR 48, Glu 295, LA 2.1, Ca 8.3, Alk Phos 245, BNP 5906, Protein 5.8, Albumin 2.1. Temperature 97.3. BP 84/23. Mycoplasma negative. He is subsequently admitted to the medical floor. He is a DNR/DNI. PCP is Dr. Coyle. Diagnosis: Stroke: No Modified Ramsey Scale: No Symptoms at All Modified Ramsey Scale Score: 0 - Discharge Data Discharge Date: 08/13/18 (Admit date: 08/08/18) Discharge Disposition: DC/Tfer to Other 70 Condition: Good - Patient Summary/Data Consults: Consultations 08/08/18 16:58 Consult to Case Management/Property Supervisor [CONS] Routine Consult to Diabetic Nurse Specialist [CONS] Routine OT Evaluation and Treatment [CONS] Routine PT Evaluation and Treatment [CONS] Routine Respiratory Care Assess and Treatment [CONS] Routine 08/08/18 18:36 Consult to Dietary [Consult to Morgue Attendant] [CONS] Routine Labs Pending at D/C: None Recommended Follow-up Testing/Procedures: Follow-up with PCP within 1 week of discharge. Hospital Course: Assessment/Plan: PNA (Increasing Density Within Right Lung Base plus H. Flu on sputum culture) * Was seen at clinic today by PCP and c/o being weak, dizzy, w/ SOB and cough x 1 day * WBC 16.9--> 16.43--> 12.28-->10.24, CRP 19.4-->11.5-->11.3-->7.2 * CXR shows nothing acute * Repeat CXR 08/11/18 increasing density within the right lung base * RT/Duonebs/IS/Acapella (I do think he uses his IS and FV; I have been encouraging him each time I check on him * Sepsis Protocol: * LA 2.1, Blood cultures show no growth after x 48H * Sputum Culture shows H. 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 * Influenza, Mycoplasma, RVP, Strep pneumo negative * Continue Azithromycin and discontinue Keflex * Solumedrol given in ED--> D/C for now; elevates Blood Glucose which is a concern from family * Bretitussin DM changed to scheduled CHF Exacerbation, Improved * BNP elevated 5906--> 689--> 7317--> 2532 [now weighs 73lbs (83lbs on admission )] * ECHO 08/09/18 shows HFrEF; no previous study to compare to: * LVEF 40-45% * Mildly decreased and segmental L ventricular systolic function * Grade 2 pattern of LV diastolic filling * Mild aortic valve sclerosis without stenosis * Mod mitral valve regurg * Mild pulmonic valve regurg * R ventricular sys pressure mild to mod elevated at 44mmHg * Repeat CXR 08/11/18 shows Stable CHF * Bumex 0.5 IVP BID plus added HCTZ 12.5 BID * 2g sodium restriction diet, 2L fluid restriction Hyperglycemia with DM2 * BS on average is fairly controlled * On LA and SA plus Glucotrol 5 mg po BID Resolved: Hypotension, Improving * Likely 2/2 decreased intake * BP 84/23 * Monitor * IVF * Dietary Consult SHEREEN, unsure of baseline; Stable * GFR 48 (CKD III)--> >60-->48, Cr 1.4--> 1.1-->1.4 * Last year GFR >60 (CKD II) * Monitor * IVF Chronic: HTN HLD CAD s/p CABG and stents CHF SOB on exertion Cardiomegaly DM2, BS is much improved Recurrent Bronchitis/PNA COPD 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 He has also been ambulating today Droplet Precautions Routine AM Labs ADA/Heart Healthy Diet/Fluid Restriction DVT/GI prophylaxis CM/SW for d/c planning PT/OT assess and treat if services available Continue to encourage to use IS and FV as directed Code Status: DNR/DNI; PCP: Dr. Coyle Discharge in AM; family would like to leave early in AM for an scheduled appointment Overall Griffin did well. He was brought in with pneumonia. He was treated with rocephin initially and then switched to PO Keflex. This was transitioned to Azithromycin when his sputum culture came back positive for H. Flu. Robitusin was given for cough. Blood cultures remained negative. Steroid was given in the ED and discontinued on the floor due to concerns over elevated blood sugars. He has been utilizing his IS and acapella and should continue to utilize this until symptoms resolve. He was weaned down to his usual 3L of oxygen. He was also noted to be having a CHF exacerbation. Echo was obtained as above. He was diureased as above and down 10lbs over admission. He was placed on a 2gm sodium and 2L fluid restriction. He did see our electrical prospecting engineer and diabetic nurse educator. He will be discharged today back to [facility]. They had already evaluated him and accepted him. He will be discharged on 4 more days of PO azithromycin 250mg and a probiotic. He was instructed to continue using his IS and Acapella. He was also instructed to follow-up with his PCP within 7-10 days of discharge. - Patient Instructions Diet: Heart Healthy Diet, Usual Diet as Tolerated, Low Sodium, Fluid Restriction , Diabetic Diet Fluid Restriction: 2000 mL Activity: As Tolerated Driving: Do Not Drive Showering/Bathing: May Shower Notify Provider of: Fever, Increased Pain, Swelling and Redness, Nausea and/or Vomiting Other/Special Instructions: - Please take all new medications as directed. - Resume all home medications and routine home activities as tolerated. - Recommend follow daily salt and fluid restrictions. - Use Incentive Spirometry and Flutter as directed for 1 week until you see your PCP (doctor). - Call or follow up with your PCP for any questions or concerns after discharge. - Follow up with your PCP in 1 week. - Come back or seek immediate care should your symptoms persist or get worse - Discharge Plan *PRESCRIPTION DRUG MONITORING PROGRAM REVIEWED*: Not Applicable *COPY OF PRESCRIPTION DRUG MONITORING REPORT IN PATIENT RANJANA: Not Applicable Prescriptions/Med Rec: Azithromycin [Zithromax] 250 mg PO DAILY #4 tab Saccharomyces Boulardii [Florastor] 250 mg PO DAILY #4 capsule Home Medications: Home Meds Metoprolol Succinate [Toprol XL] 25 mg PO DAILY 04/28/14 [History] [place]-3 Fatty Acids [[place]-3] 1,000 mg PO DAILY 04/28/14 [History] Simvastatin [Zocor] 40 mg PO BEDTIME 04/28/14 [History] SitaGLIPtin [Januvia] 100 mg PO DAILY 04/28/14 [History] Brimonidine [Alphagan P 0.15% Ophth Soln] 1 drop EYEBOTH BID 05/10/17 [History] Nitroglycerin [Nitrostat] 0.4 mg SL Q5M PRN 05/10/17 [History] glipiZIDE [Glucotrol] 10 mg PO WITHBREAKFAST 05/10/17 [History] Nicotine [Habitrol] 7 mg TRDERM DAILY 06/19/17 [History] Roflumilast [Daliresp] 500 mcg PO DAILY 06/19/17 [History] Oxygen 3 liter EMELY ASDIRECTED PRN 07/01/17 [History] Acetaminophen [Tylenol] 325 mg PO Q6H PRN 08/08/18 [History] Aspirin [Ecotrin] 81 mg PO DAILY 08/08/18 [History] Benzonatate [Tessalon Perle] 100 mg PO BID PRN 08/08/18 [History] Carboxymethylcellulose Sodium [Refresh Celluvisc] 1 drop EYEBOTH BID 08/08/18 [ History] Celecoxib [CeleBREX] 200 mg PO WITHBREAKFAST 08/08/18 [History] Dextromethorphan/guaiFENesin [Robitussin DM] 10 ml PO Q6H PRN 08/08/18 [History] Furosemide [Lasix] 20 mg PO DAILY 08/08/18 [History] Ibuprofen 400 mg PO BIDAC 08/08/18 [History] Insulin Glarg,Human.Rec.Analog [Lantus Solostar] 15 unit SQ DAILY 08/08/18 [ History] Lactose-Reduced Food [Ensure Active Clear] 4 oz PO BID 08/08/18 [History] Levalbuterol HCl [Xopenex] 1.25 mg INH TID PRN 08/08/18 [History] Losartan [Cozaar] 25 mg PO DAILY 08/08/18 [History] Magnesium Oxide 400 mg PO DAILY 08/08/18 [History] Melatonin 2 mg PO BEDTIME 08/08/18 [History] Multivitamin with Minerals [Multiple Vitamin] 1 tab PO DAILY 08/08/18 [History] Nitroglycerin [Nitrostat] 0.4 mg SL ASDIRECTED PRN 08/08/18 [History] Sertraline [Zoloft] 50 mg PO DAILY 08/08/18 [History] Sodium Chloride 7% [HyperSal 7%] 4 ml NEB DAILY 08/08/18 [History] guaiFENesin [Mucinex] 600 mg PO BID 08/08/18 [History] traMADol [Ultram] 50 mg PO QID PRN 08/08/18 [History] Azithromycin [Zithromax] 250 mg PO DAILY #4 tab 08/13/18 [Rx] Saccharomyces Boulardii [Florastor] 250 mg PO DAILY #4 capsule 08/13/18 [Rx] Oxygen Therapy Mode: Nasal Cannula Oxygen Flow Rate (L/min): 3 Maintain SpO2% greater than: 90 Patient Handouts: Acute Kidney Injury, Adult, Hypotension, [id number], Hyperglycemia, [id number], Heart Failure, Zyzz-pv-[id number], Steps to Quit Smoking , Community-Acquired Pneumonia, Adult, [id number] Referrals: Moo Coyle MD [Primary Care Provider] - 08/24/18 10:00 am (Please follow up with Dr. Coyle on Monday, August 24 at 1000.) - Discharge Summary/Plan Comment DC Time >30 min.: Yes (45 minutes ) - General Info Date of Service: 08/13/18 Admission Dx/Problem (Free Text: Admission Diagnosis/Problem Admission Diagnosis/Problem Pneumonia Subjective Update: In to see Griffin. He reports he feels much better than arrival but still has some shortness of breath. He is back to his usual 3L. He does still have a remaining cough. Discussed follow-up after discharge. His family would like him discharged early this AM as he has some type of insurance physical. [facility] evaluated him an has cleared him to return. He will be discharged today. Functional Status: Reports: Pain Controlled, Tolerating Diet, Ambulating, Urinating, Incentive Spirometry, Other (acapella ). Denies: New Symptoms - Review of Systems General: Reports: Weakness (improving ). Denies: Fever, Fatigue, Malaise, Chills HEENT: Reports: No Symptoms. Denies: Headaches, Sore Throat Pulmonary: Reports: Shortness of Breath (chronic - improved ), Cough (improved ) , Sputum (improving ). Denies: Pleuritic Chest Pain, Wheezing Cardiovascular: Denies: Chest Pain, Palpitations, Dyspnea on Exertion, Lightheadedness Gastrointestinal: Reports: No Symptoms. Denies: Abdominal Pain, Constipation, Diarrhea, Nausea, Vomiting Genitourinary: Reports: No Symptoms. Denies: Pain Musculoskeletal: Reports: No Symptoms Skin: Reports: No Symptoms Neurological: Reports: No Symptoms. Denies: Confusion Psychiatric: Reports: No Symptoms - Patient Data Vitals - Most Recent: Last Vital Signs Temp 98.1 F 08/13/18 03:20 Pulse 77 08/13/18 03:20 Resp 16 08/13/18 03:20 BP 98/49 L 08/13/18 03:20 Pulse Ox 97 08/13/18 06:16 Weight - Most Recent: 173 lb 5 oz I&O - Last 24 hours: Intake & Output 08/12/18 08/13/18 08/13/18 22:59 06:59 14:59 Intake Total 580 100 Output Total 800 450 Balance -220 -350 Lab Results - Last 24 hrs: Laboratory Results - last 24 hr 08/12/18 08/12/18 08/12/18 Range/Units 11:18 16:20 21:12 WBC (4.23-9.07) K/mm3 RBC (4.63-6.08) M/mm3 Hgb (13.7-17.5) gm/L Hct (40.1-51.0) % MCV (79.0-92.2) fl MCH (25.7-32.2) pg MCHC (32.2-35.5) g/dl RDW Std Deviation (35.1-43.9) fL Plt Count (163-337) K/mm3 MPV (9.4-12.3) fl Neut % (Auto) (34.0-67.9) % Lymph % (Auto) (21.8-53.1) % Hart % (Auto) (5.3-12.2) % Eos % (Auto) (0.8-7.0) Baso % (Auto) (0.1-1.2) % Neut # (Auto) (1.78-5.38) K/mm3 Lymph # (Auto) (1.32-3.57) K/mm3 Hart # (Auto) (0.30-0.82) K/mm3 Eos # (Auto) (0.04-0.54) K/mm3 Baso # (Auto) (0.01-0.08) K/mm3 Sodium (136-145) mEq/L Potassium (3.5-5.1) mEq/L Chloride (98-107) mEq/L Carbon Dioxide (21-32) mEq/L Anion Gap (5-15) BUN (7-18) mg/dL Creatinine (0.7-1.3) mg/dL Est Cr Clr Drug Dosing mL/min Estimated GFR (MDRD) (>60) mL/min BUN/Creatinine Ratio (14-18) Glucose (83-115) mg/dL POC Glucose 225 H 166 H 145 H (83-110) mg/dL Calcium (8.5-10.1) mg/dL Magnesium (1.8-2.4) mg/dl C-Reactive Protein (<1.0) mg/dL 08/13/18 08/13/18 08/13/18 Range/Units 05:49 06:25 06:25 WBC 10.24 H (4.23-9.07) K/mm3 RBC 3.38 L (4.63-6.08) M/mm3 Hgb 10.2 L (13.7-17.5) gm/L Hct 32.7 L (40.1-51.0) % MCV 96.7 H (79.0-92.2) fl MCH 30.2 (25.7-32.2) pg MCHC 31.2 L (32.2-35.5) g/dl RDW Std Deviation 44.0 H (35.1-43.9) fL Plt Count 274 (163-337) K/mm3 MPV 9.8 (9.4-12.3) fl Neut % (Auto) 71.7 H (34.0-67.9) % Lymph % (Auto) 16.9 L (21.8-53.1) % Hart % (Auto) 8.1 (5.3-12.2) % Eos % (Auto) 2.5 (0.8-7.0) Baso % (Auto) 0.2 (0.1-1.2) % Neut # (Auto) 7.34 H (1.78-5.38) K/mm3 Lymph # (Auto) 1.73 (1.32-3.57) K/mm3 Hart # (Auto) 0.83 H (0.30-0.82) K/mm3 Eos # (Auto) 0.26 (0.04-0.54) K/mm3 Baso # (Auto) 0.02 (0.01-0.08) K/mm3 Sodium 138 (136-145) mEq/L Potassium 3.5 (3.5-5.1) mEq/L Chloride 99 (98-107) mEq/L Carbon Dioxide 34 H (21-32) mEq/L Anion Gap 8.5 (5-15) BUN 29 H (7-18) mg/dL Creatinine 1.4 H (0.7-1.3) mg/dL Est Cr Clr Drug Dosing 39.59 mL/min Estimated GFR (MDRD) 48 (>60) mL/min BUN/Creatinine Ratio 20.7 H (14-18) Glucose 100 (83-115) mg/dL POC Glucose 94 (83-110) mg/dL Calcium 8.7 (8.5-10.1) mg/dL Magnesium 1.9 (1.8-2.4) mg/dl C-Reactive Protein 7.2 H* (<1.0) mg/dL TREY Results - Last 24 hrs: Microbiology 08/08/18 15:55 Gram Stain - Preliminary Sputum - Expectorated Sputum Culture - Final Haemophilus Influenzae 08/08/18 11:54 Aerobic Blood Culture - Preliminary Blood - Venous - Lab Draw NO GROWTH AFTER 4 DAYS Anaerobic Blood Culture - Preliminary NO GROWTH AFTER 4 DAYS 08/08/18 11:47 Aerobic Blood Culture - Preliminary Blood - Venous NO GROWTH AFTER 4 DAYS Anaerobic Blood Culture - Preliminary NO GROWTH AFTER 4 DAYS Med Orders - Current: Current Medications Acetaminophen (Tylenol) 650 mg PO Q4H PRN PRN Reason: Pain (Mild 1-3)/fever Albuterol/Ipratropium (Duoneb 3.0-0.5 Mg/3 Ml) 3 ml NEB Q6H PRN PRN Reason: Shortness of Breath Last Admin: 08/10/18 13:13 Dose: 3 ml Albuterol/Ipratropium (Duoneb 3.0-0.5 Mg/3 Ml) 3 ml NEB BIDRT [facility] Last Admin: 08/13/18 06:13 Dose: 3 ml Alogliptin Benzoate (Alogliptin) 25 mg PO DAILY [facility] Last Admin: 08/12/18 09:39 Dose: 25 mg Artificial Tears (Refresh Liquigel 1%) 0 ml EYEBOTH BID [facility] Last Admin: 08/12/18 21:33 Dose: 1 drop Aspirin (Halfprin) 81 mg PO DAILY [facility] Last Admin: 08/12/18 09:44 Dose: 81 mg Azithromycin (Zithromax) 500 mg PO Q24H [facility] Benzonatate (Tessalon Perles) 100 mg PO BID PRN PRN Reason: Cough Bisacodyl (Dulcolax) 5 mg PO DAILY PRN PRN Reason: Constipation Brimonidine Tartrate (Alphagan 0.2% Ophth Soln) 0 ml EYEBOTH BID [facility] Last Admin: 08/12/18 21:33 Dose: 1 drop Bumetanide (Bumex) 0.5 mg IVPUSH BIDDIURETIC [facility] Last Admin: 08/13/18 05:39 Dose: 0.5 mg Celecoxib (Celebrex) 200 mg PO DAILY [facility] Last Admin: 08/12/18 09:42 Dose: 200 mg Dextrose/Water (Dextrose 50% In Water) 50 ml IVPUSH ASDIRECTED PRN PRN Reason: Hypoglycemia Diphenhydramine HCl (Benadryl) 25 mg IVPUSH Q4H PRN PRN Reason: Rash/allergic rxn Docusate Sodium (Colace) 100 mg PO BID PRN PRN Reason: Constipation Famotidine (Pepcid) 20 mg PO DAILY [facility] Last Admin: 08/12/18 09:42 Dose: 20 mg Glipizide (Glucotrol Xl) 5 mg PO BID [facility] Last Admin: 08/12/18 21:34 Dose: 5 mg Glycopyrrolate (Seebri Neohaler) 15.6 mcg IH BIDRT [facility] Last Admin: 08/13/18 06:13 Dose: 1 cap Guaifenesin (Mucinex) 600 mg PO BID [facility] Last Admin: 08/12/18 21:33 Dose: 600 mg Guaifenesin/Phenylephrine HCl (Robitussin Dm) 10 ml PO TID@0700,1400,2100 [facility] Last Admin: 08/13/18 05:40 Dose: 10 ml Hydrochlorothiazide (Hydrochlorothiazide) 12.5 mg PO BIDDIURETIC [facility] Last Admin: 08/13/18 05:40 Dose: 12.5 mg Promethazine HCl 6.25 mg/ (Sodium Chloride) 50.25 mls @ 100 mls/hr IV Q6H PRN PRN Reason: Nausea/Vomiting Insulin Glargine (Lantus) 16 unit SUBCUT BID [facility] Last Admin: 08/12/18 21:27 Dose: 16 units Insulin Human Lispro (Humalog) 0 unit SUBCUT QIDACANDBED [facility]; Protocol Last Admin: 08/13/18 07:57 Dose: Not Given Levalbuterol HCl (Xopenex) 1.25 mg NEB TID PRN PRN Reason: Wheezing Last Admin: 08/10/18 08:15 Dose: 1.25 mg Losartan Potassium (Cozaar) 25 mg PO DAILY [facility] Last Admin: 08/12/18 09:42 Dose: 25 mg Magnesium Hydroxide (Milk Of Magnesia) 30 ml PO Q12H PRN PRN Reason: Constipation Magnesium Oxide (Magnesium Oxide) 400 mg PO DAILY [facility] Last Admin: 08/12/18 09:44 Dose: 400 mg Metoprolol Succinate (Toprol Xl) 25 mg PO DAILY [facility] Last Admin: 08/12/18 09:43 Dose: 25 mg Miscellaneous Information (Remove Patch) 1 ea TRDERM DAILY [facility] Last Admin: 08/12/18 09:54 Dose: 1 ea Multivitamins (Thera) 1 each PO DAILY [facility] Last Admin: 08/12/18 09:43 Dose: 1 each Nicotine (Habitrol) 7 mg TRDERM DAILY [facility] Last Admin: 08/12/18 09:47 Dose: 7 mg Nitroglycerin (Nitrostat) 0.4 mg SL Q5M PRN PRN Reason: Chest Pain Roflumilast 500 Mcg (Ptom) 0 each PO DAILY [facility] Last Admin: 08/12/18 09:53 Dose: Not Given Polyethylene Glycol (Miralax) 17 gm PO DAILY PRN PRN Reason: Constipation Promethazine HCl (Phenergan) 25 mg PO Q6H PRN PRN Reason: Nausea/Vomiting Saccharomyces Boulardii (Florastor) 250 mg PO BID [facility] Last Admin: 08/12/18 21:34 Dose: 250 mg Senna/Docusate Sodium (Senna Plus) 1 tab PO BID PRN PRN Reason: Constipation Sertraline HCl (Zoloft) 50 mg PO DAILY [facility] Last Admin: 08/12/18 09:44 Dose: 50 mg Simvastatin (Zocor) 40 mg PO BEDTIME [facility] Last Admin: 08/12/18 21:34 Dose: 40 mg Sodium Chloride (Saline Flush) 10 ml FLUSH ASDIRECTED PRN PRN Reason: Keep Vein Open Last Admin: 08/08/18 09:18 Dose: 10 ml Temazepam (Restoril) 7.5 mg PO BEDTIME PRN PRN Reason: Sleep Last Admin: 08/12/18 21:34 Dose: 7.5 mg Tramadol HCl (Ultram) 50 mg PO QID PRN PRN Reason: Pain Discontinued Medications Albuterol/Ipratropium (Duoneb 3.0-0.5 Mg/3 Ml) 3 ml NEB ONETIME ONE Stop: 08/08/18 09:31 Last Admin: 08/08/18 10:03 Dose: 3 ml Albuterol/Ipratropium (Duoneb 3.0-0.5 Mg/3 Ml) 3 ml NEB BIDRT [facility] Azithromycin (Zithromax) 500 mg PO Q24H [facility] Last Admin: 08/12/18 16:52 Dose: 500 mg Benzonatate (Tessalon Perles) 100 mg PO BID [facility] Last Admin: 08/10/18 08:31 Dose: 100 mg Bumetanide (Bumex) 0.5 mg IVPUSH ONETIME ONE Stop: 08/10/18 14:01 Last Admin: 08/10/18 14:55 Dose: 0.5 mg Bumetanide (Bumex) 0.5 mg IVPUSH BID [facility] Last Admin: 08/10/18 21:39 Dose: Not Given Bumetanide (Bumex) 1 mg IVPUSH ONETIME ONE Stop: 08/11/18 14:01 Bumetanide (Bumex) 0.5 mg IVPUSH ONETIME ONE Stop: 08/11/18 14:01 Last Admin: 08/11/18 13:13 Dose: 0.5 mg Cephalexin (Keflex) 500 mg PO Q8H [facility] Last Admin: 08/12/18 09:41 Dose: 500 mg Furosemide (Lasix) 20 mg PO DAILY [facility] Last Admin: 08/10/18 08:28 Dose: 20 mg Glipizide (Glucotrol) 10 mg PO DAILY [facility] Last Admin: 08/09/18 09:48 Dose: 10 mg Glipizide (Glucotrol Xl) 2.5 mg PO BID [facility] Last Admin: 08/11/18 21:21 Dose: 2.5 mg Guaifenesin/Phenylephrine HCl (Robitussin Dm) 10 ml PO Q6H PRN PRN Reason: Cough/COPD/CONGESTION Sodium Chloride (Normal Saline) 500 mls @ 1,000 mls/hr IV .BOLUS [facility] Last Admin: 08/08/18 09:20 Dose: 1,000 mls/hr Ceftriaxone Sodium 2 gm/ (Sodium Chloride) 100 mls @ 200 mls/hr IV ONETIME ONE Stop: 08/08/18 11:59 Last Admin: 08/08/18 12:42 Dose: Not Given Ceftriaxone Sodium 2 gm/ (Sodium Chloride) 100 mls @ 200 mls/hr IV ONETIME ONE Stop: 08/08/18 12:18 Last Admin: 08/08/18 11:54 Dose: 200 mls/hr Azithromycin 500 mg/ Sodium (Chloride) 250 mls @ 250 mls/hr IV Q24H [facility] Last Admin: 08/10/18 17:33 Dose: 250 mls/hr Ceftriaxone Sodium 2 gm/ (Sodium Chloride) 100 mls @ 200 mls/hr IV Q24H [facility] Last Admin: 08/09/18 12:50 Dose: Not Given Sodium Chloride (Normal Saline) 1,000 mls @ 100 mls/hr IV ASDIRECTED [facility] Last Admin: 08/09/18 23:28 Dose: 100 mls/hr Ceftriaxone Sodium 2 gm/ (Sodium Chloride) 100 mls @ 200 mls/hr IV Q24H [facility] Last Admin: 08/11/18 08:43 Dose: 200 mls/hr Insulin Glargine (Lantus) 15 unit SUBCUT BID [facility] Insulin Glargine (Lantus) 8 unit SUBCUT BEDTIME ONE Stop: 08/09/18 21:01 Last Admin: 08/09/18 22:25 Dose: 8 units Insulin Glargine (Lantus) 15 unit SUBCUT BID [facility] Last Admin: 08/11/18 21:22 Dose: 15 unit Magnesium Oxide (Magnesium Oxide) 400 mg PO BID [facility] Last Admin: 08/10/18 08:29 Dose: 400 mg Methylprednisolone Sodium Succinate (Solu-Medrol) 125 mg IVPUSH ONETIME ONE Stop: 08/08/18 11:32 Last Admin: 08/08/18 11:56 Dose: 125 mg Nicotine (Habitrol) 7 mg TRDERM DAILY [facility] Non-Formulary Medication (Lactose-Reduced Food [Ensure Active Clear]) 4 oz PO BID [facility] Last Admin: 08/09/18 12:50 Dose: Not Given Tiotropium Lanexa (Spiriva Handihaler) 18 mcg INH DAILY [facility] Last Admin: 08/11/18 20:18 Dose: Not Given - Exam Quality Assessment: Reports: Supplemental Oxygen (3L), DVT Prophylaxis General: Reports: Alert, Oriented, Cooperative, No Acute Distress HEENT: Reports: Pupils Equal, Pupils Reactive, EOMI, Mucous Membr. Moist/[place] Neck: Reports: Supple, Trachea Midline, No JVD Lungs: Reports: Normal Respiratory Effort, Decreased Breath Sounds. Denies: Rales, Rhonchi, Wheezing Cardiovascular: Reports: Regular Rate, Regular Rhythm GI/Abdominal Exam: Normal Bowel Sounds, Soft, Non-Tender, No Distention, No Abnormal Bruit (Male) Exam: Deferred Rectal (Males) Exam: Deferred Back Exam: Reports: Normal Inspection, Full Range of Motion Extremities: Normal Inspection, Normal Range of Motion, Non-Tender, No Pedal Edema, Normal Capillary Refill Skin: Reports: Warm, Dry, Intact Neurological: Reports: No New Focal Deficit Psy/Mental Status: Reports: Alert, Normal Affect, Normal Mood
[2018-08-13] MEDS: Nicotine 7 MG/24 Hr Patch TRDERM SCH (09:17)
[2018-08-13] MEDS: guaiFENesin 600 MG Tab.ER PO SCH (09:19)
[2018-08-13] MEDS: Multivitamins,Therapeutic Tab PO SCH (09:19)
[2018-08-13] MEDS: Aspirin 81 MG Tab.EC PO SCH (09:19)
[2018-08-13] MEDS: Metoprolol Succinate 25 MG Tab.ER PO SCH (09:20)
[2018-08-13] MEDS: Losartan 25 MG Tab PO SCH (09:20)
[2018-08-13] MEDS: Celecoxib 100 MG Cap PO SCH (09:20)
[2018-08-13] MEDS: Magnesium Oxide 400 MG Tab PO SCH (09:20)
[2018-08-13] MEDS: Sertraline 50 MG Tab PO SCH (09:21)
[2018-08-13] MEDS: Famotidine 20 MG Tab PO SCH (09:21)
[2018-08-13] MEDS: Saccharomyces Boulardii (Probiotic) 250 MG Cap PO SCH (09:21)
[2018-08-13] MEDS: Insulin Glarg,Human.Rec.Analog 100 UNIT/ML ML SUBCUT SCH (09:21)
[2018-08-13] MEDS: glipiZIDE 5 MG Tab.ER PO SCH (09:21)
[2018-08-13] MEDS: Carboxymethylcellulose Sodium 1% Ophth Gel 15 ML Bottle EYEBOTH SCH (09:22)
[2018-08-13] MEDS: Roflumilast 500 MCG **PTOM PO SCH (09:22)
[2018-08-13 09:23] VITALS: BP 107/84
[2018-08-13] MEDS: Brimonidine 0.2% Ophth Soln 5 ML Bottle EYEBOTH SCH (09:23)
[2018-08-13] MEDS ORDERED: Azithromycin 250 MG Tab PO SCH (17:00)
== END 2018-08-13 10:44 | disposition other institution (70) | DRG 193 ==
LOC: SUPCPDRO 09:18 → JD.ED 09:18 → JD.MS 13:19
PROVIDERS: ADMIT Internal Medicine; ATTEND Internal Medicine
DX: J18.1 Lobar pneumonia, unspecified organism (principal); I50.23 Acute on chronic systolic (congestive) heart failure; E11.9 Type 2 diabetes mellitus without complications; I13.0 Hypertensive heart and chronic kidney disease with heart failure and stage 1 through stage 4 chronic kidney disease, or unspecified chronic kidney disease; J44.0 Chronic obstructive pulmonary disease with (acute) lower respiratory infection; N17.9 Acute kidney failure, unspecified; I11.0 Hypertensive heart disease with heart failure; I25.10 Atherosclerotic heart disease of native coronary artery without angina pectoris; I50.9 Heart failure, unspecified; E78.00 Pure hypercholesterolemia, unspecified; R09.02 Hypoxemia; R32 Unspecified urinary incontinence; M19.90 Unspecified osteoarthritis, unspecified site; H54.7 Unspecified visual loss; H91.90 Unspecified hearing loss, unspecified ear; E78.5 Hyperlipidemia, unspecified; E11.22 Type 2 diabetes mellitus with diabetic chronic kidney disease; N18.3 Chronic kidney disease, stage 3 (moderate); D64.9 Anemia, unspecified; E11.65 Type 2 diabetes mellitus with hyperglycemia; E86.0 Dehydration; D72.829 Elevated white blood cell count, unspecified; R05 Cough; R06.02 Shortness of breath; R55 Syncope and collapse; I95.9 Hypotension, unspecified; T38.0X5A Adverse effect of glucocorticoids and synthetic analogues, initial encounter; Z88.5 Allergy status to narcotic agent; Z87.891 Personal history of nicotine dependence; Z95.1 Presence of aortocoronary bypass graft; Z88.0 Allergy status to penicillin; Z95.5 Presence of coronary angioplasty implant and graft; Z66 Do not resuscitate; Z91.041 Radiographic dye allergy status; Z99.81 Dependence on supplemental oxygen; Z87.01 Personal history of pneumonia (recurrent); Z79.4 Long term (current) use of insulin; Z79.899 Other long term (current) drug therapy
CPT/HCPCS: 36415; 71045; 80053; 83605; 83880; 84484; 85025; 86738; 87040 ×2; 93005; 94640; 96361; 96365; 96375; 99285; J0696; J2930; J7030; J7040; 71046; 71046-26; 80048; 80061; 82947; 82962; 83036; 83735; 86140; 87070; 87077; 87184; 87205; 87486; 87581; 87632; 87641; 87798; 87804; 87899; 93010; 93306; 94667; 94668; 94760; 94761; 97110-GO; 97110-GP; 97116-GP; 97162-GP; 97166-GO; 97530-GO; 97530-GP; 97535-GO; 99284; A9270-GY; J0456; J1815-GY; J3490; J7050; J7612-GY; J7620-GY

== ENCOUNTER 2020-10-02 09:45 | Inpatient (IN) | payer MEDICARE, OTHER ==
--- NOTE | 2020-10-02 11:21 | EDM.PDOC ---
ED HPI GENERAL MEDICAL PROBLEM - General Chief Complaint: Cardiovascular Problem Stated Complaint: WEAKNESS/CONFUSION/SOB Time Seen by Provider: 10/02/20 11:10 Source of Information: Reports: Patient, Family (son) History Limitations: Reports: No Limitations (Mildly hard of hearing with hearing aids in place.) - History of Present Illness INITIAL COMMENTS - FREE TEXT/NARRATIVE: 89-year-old male who is currently a resident at [facility] presents to the ED feeling weak and dyspneic on minimal exertion for several weeks if not months. He was seen by pulmonology in [place] on Monday this week September 28 and told that everything looked okay as far as his lungs were going. He seen cardiology service about 2 weeks ago and was told no changes to medications either. Patient states he just simply does not have any energy or is easily fatigued on minimal exertion such as walking 15 feet. He has a chronic cough usually white sputum. He had both of his COVID-19 vaccinations without andrea COVID-19 illness last year. He does appear quite pale in appearance. He denies any obvious blood in his urine or stool. To his knowledge she has never required a blood transfusion. However he has had open heart surgery in the past with triple bypass which may have required blood transfusion. Patient has had numerous coronary artery stents in place and bypass on 2 separate occasions the last time being about 5 years ago. He has chronic lower extremity edema. He denies any recent problems with pneumonia. Denies any recent problems with central chest pain. Onset: Unknown/Unsure (States he is not felt well for a good couple of months and may be even longer.) Duration: Week(s):, Chronic, Getting Worse Location: Reports: Generalized (Generalized weakness. Dyspnea on minimal exertion such as walking 10 to 15 feet from the bedroom to the bathroom. Cannot go up more than 5 stairs without resting. Feels lightheaded and dizzy at times as well.) Quality: Reports: Other Severity: Moderate (Normalized weakness and severe fatigue) Improves with: Reports: Rest Worsens with: Reports: Other (Worse with exertion or short walk such as 10 to 15 feet.) Context: Denies: Activity, Exercise, Lifting, Sick Contact, Trauma, Other Associated Symptoms: Reports: Confusion (Is confused at times.), Cough, cough w sputum, Malaise, Shortness of Breath, Weakness (Neurolysed weakness particular in his lower extremities no falls recently.). Denies: Chest Pain, Diaphoresis, Fever/Chills, Headaches, Loss of Appetite, Nausea/Vomiting, Rash, Seizure, Syncope Treatments RESEARCH STATISTICIAN: Reports: Other (see below) - Related Data Allergies Allergy/AdvReac Type Severity Reaction Status Date / Time hydromorphone [From Dilaudid] Allergy Rash Verified 10/02/20 10:06 Iodinated Contrast Media Allergy Hives Verified 10/02/20 10:06 [Iodinated Contrast- Oral and IV Dye] Penicillins Allergy Rash Verified 10/02/20 10:06 Home Meds: Home Meds Simvastatin [Zocor] 40 mg PO BEDTIME 04/28/14 [History] Oxygen 3 liter EMELY ASDIRECTED PRN 07/01/17 [History] Acetaminophen [Tylenol] 650 mg PO Q6H PRN 08/08/18 [History] Carboxymethylcellulose Sodium [Refresh Celluvisc] 1 drop EYEBOTH BID 08/08/18 [History] Ibuprofen 400 mg PO BIDAC PRN 08/08/18 [History] Nitroglycerin [Nitrostat] 0.4 mg SL ASDIRECTED PRN 08/08/18 [History] Sertraline [Zoloft] 50 mg PO DAILY 08/08/18 [History] Sodium Chloride 7% [HyperSal 7%] 4 ml NEB DAILY 08/08/18 [History] levalbuterol HCL [Xopenex] 1.25 mg INH TID PRN 08/08/18 [History] traMADol [Ultram] 50 mg PO QID PRN 08/08/18 [History] Aspirin [Aspirin EC] 81 mg PO DAILY 10/02/20 [History] Brimonidine [Alphagan P 0.15% Ophth Soln] 1 drop OP BID 10/02/20 [History] Calcium Carbonate [Tums] 2 tab PO QID PRN 10/02/20 [History] Celecoxib [CeleBREX] 200 mg PO DAILY 10/02/20 [History] Cerovite Advanced Formula. 1 tab PO DAILY 10/02/20 [History] Fluticasone Furoate [Flonase Sensimist] 1 spray EMELY DAILY 10/02/20 [History] Furosemide [Lasix] 20 mg PO DAILY 10/02/20 [History] Insulin Glargine,Hum.Rec.Anlog [Lantus Solostar] 24 units SQ BID 10/02/20 [History] Losartan [Cozaar] 25 mg PO DAILY 10/02/20 [History] Magnesium Oxide [Magnesium] 400 mg PO BID 10/02/20 [History] Melatonin 2 mg PO BEDTIME 10/02/20 [History] Meloxicam 15 mg PO BID PRN 10/02/20 [History] Metoprolol Succinate [Toprol XL] 25 mg PO DAILY 10/02/20 [History] Roflumilast [Daliresp] 500 mcg PO DAILY 10/02/20 [History] SitaGLIPtin [Januvia] 100 mg PO DAILY 10/02/20 [History] Vit C/E/Zn/Coppr/Lutein/Zeaxan [Preservision Areds 2 Softgel] 1 tab PO DAILY 10/02/20 [History] glipiZIDE [Glipizide ER] 10 mg PO DAILY 10/02/20 [History] guaiFENesin [Mucinex] 600 mg PO BID 10/02/20 [History] levalbuterol HCL [Levalbuterol Concentrate] 1 ampule IH QID 10/02/20 [History] Past Medical History HEENT History: Reports: Hard of Hearing, Impaired Vision Other HEENT History: corrected with glasses and PATRICIA Cardiovascular History: Reports: Bypass (He has had coronary bypass surgery t wice last time being about 5 years ago and is unsure whether he had triple or), CAD, Heart Failure, High Cholesterol, Hypertension, [place] ( double bypass at that time. He is also got numerous coronary stents in place.), SOB on Exertion, Stents, Other (See Below) Other Cardiovascular History: cardiomegaly Respiratory History: Reports: Bronchitis, Recurrent, COPD (Severe COPD not on oxygen.), Pneumonia, Recurrent, Pulmonary Fibrosis, SOB Other Respiratory History: hypoxia, chronic oxygen use 3-4 liters per NC Genitourinary History: Reports: BPH (Nocturia x3 or 4.), Urinary Incontinence Musculoskeletal History: Reports: Arthritis Neurological History: Reports: Concussion Psychiatric History: Reports: Dementia, Other (See Below) Other Psychiatric History: claustrophobia Endocrine/Metabolic History: Reports: Diabetes, Type II - Infectious Disease History Infectious Disease History: Reports: Chicken Pox, Measles, Mumps, Rubella - Past Surgical History HEENT Surgical History: Reports: Cataract Surgery Cardiovascular Surgical History: Reports: Coronary Artery Bypass Other Cardiovascular Surgeries/Procedures: CABGx3 15 yrs ago Respiratory Surgical History: Reports: None Other Respiratory Surgeries/Procedures: chest tube on L side Male Surgical History: Reports: None Endocrine Surgical History: Reports: None Neurological Surgical History: Reports: None Musculoskeletal Surgical History: Reports: None Social & Family History - Family History Family Medical History: No Pertinent Family History - Tobacco Use Tobacco Use Status *Q: Never Tobacco User - Caffeine Use Caffeine Use: Reports: Coffee Other Caffeine Use: 2 cups/day - Recreational Drug Use Recreational Drug Use: No - Living Situation & Occupation Living situation: Reports: Extended Care Facility (Resides at [facility] assisted living home), Assisted Living Occupation: Retired (Lives at [facility].) ED ROS GENERAL - Review of Systems Review Of Systems: See Below Constitutional: Reports: Malaise, Weakness, Fatigue, Decreased Appetite, Weight Loss. Denies: Fever, Chills HEENT: Reports: Glasses, Other Respiratory: Reports: Shortness of Breath (Creased visual acuity due to mild macular degeneration.), Wheezing, Cough, Sputum, Other (Right sputum primarily has severe CB COPD) Cardiovascular: Reports: Blood Pressure Problem, Dyspnea on Exertion ( Chronic edema both lower extremities. Chronically on minimal exertion getting worse the last 2 months.), Edema (Pressure when he gets up from a lying or seated position.), Lightheadedness. Denies: Chest Pain, Claudication (But runs too low due to medications.), Orthopnea, Palpitations Endocrine: Reports: Fatigue GI/Abdominal: Reports: Constipation (Mild). Denies: Abdominal Pain, Hematemesis, Hematochezia, Melena, Nausea, Vomiting : Reports: Frequency, Incontinence, Urgency, Other (Urge incontinence.) Musculoskeletal: Reports: Joint Pain (His hips low back neck and shoulders at times due to osteoarthritic changes. [place] to have osteoporosis as well.) Skin: Reports: Bruising (Bruises easily.) Neurological: Reports: Confusion (Seems to get more confused the last few months.), Dizziness ( Memory is not as good as it used to be.), Difficulty Walking (Lysed weakness and fatigue), Weakness. Denies: Headache, Syncope, Tremors ( due to weakness and fatigue.), Trouble Speaking, Change in Speech Psychiatric: Reports: No Symptoms (Uses a cane or a walker to aid ambulation.) Hematologic/Lymphatic: Reports: No Symptoms Immunologic: Reports: No Symptoms ED EXAM, GENERAL - Physical Exam Exam: See Below Exam Limited By: No Limitations General Appearance: Alert, WD/WN, No Apparent Distress, Other (Patient is quite pallid in appearance. He states he always looks this way. Temperature is 36.4. Heart rate was 76 and sinus respiratory was 18 with O2 sats 100%. BP low 85/65 this morning.) Eye Exam: Right Eye: Normal Inspection (Marked blepharal pallor.), Bilateral Eye: PERRL Ears: Normal TMs Throat/Mouth: Normal Inspection, Normal Lips, Normal Oropharynx (Tongue is moist.), Other. No: Normal Teeth Head: Atraumatic, Normocephalic, Other (Signs of head or facial trauma.) Neck: Normal Inspection, Limited Range of Motion (He has limited flexion and rotation of his cervical spine), Tender Lateral (Tender laterally but he states it is always this way.). No: Carotid Bruit, Lymphadenopathy (L), Lymphadenopathy (R) Respiratory/Chest: No Respiratory Distress, Lungs Clear, Decreased Breath Sounds, Wheezing. No: Normal Breath Sounds (Very occasional expiratory wheeze.), Rales, Rhonchi (Use breath sounds by 30% to the lower lung lau bilaterally.) Cardiovascular: Regular Rate, Rhythm, No Gallop, No Murmur, No Rub, Other (Well- healed midline sternotomy incision.). No: Normal Peripheral Pulses, No Edema Peripheral Pulses: 1+: Posterior Tibial (L), Posterior Tibial (R), Dorsalis Pedis (L), Dorsalis Pedis (R), 2+: Carotid (L), Carotid (R) GI/Abdominal: Normal Bowel Sounds, Soft, Non-Tender, No Organomegaly, No Mass, Pelvis Stable, Other (Umbilical hernia which does not bother him. It is not easily reducible.) Back Exam: Normal Inspection, Other (Mild kyphosis thoracic spine.). No: Full Range of Motion, CVA Tenderness (L), CVA Tenderness (R) Extremities: Pedal Edema (2+ pitting edema both lower extremities up to mid tib- fib. He has evidence of venous harvesting from the left leg for bypass surgery), Other (This of osteoarthritic changes both knees and very limited) Neurological: Alert ( internal and external rotation of both hips.), Oriented, CN II-XII Intact, Normal Cognition Psychiatric: Normal Affect, Normal Mood Skin Exam: Warm, Dry, Intact, Pallor (Pallor.) #1 Interpretation EKG Date: 10/02/20 Time: 09:55 Rhythm: NSR Rate (Beats/Min): 77 [place]: Normal P-Wave: Enlarged (Left atrial hypertrophy pattern with first-degree AV block) QRS: Other (Q waves present leads III and aVF compared with old inferior wall myocardial infarction early R wave transition suggesting right ventricular hypertrophy versus septal hypertrophy pattern decreased voltage in limb and precordial leads) ST-T: Depressed (Mild ST segment depression in leads I and aVL) QT: Normal EKG Interpretation Comments: Abnormal ECG Course - Vital Signs Last Recorded V/S: Last Vital Signs Temp 35.9 C L 10/02/20 12:49 Pulse 79 10/02/20 12:49 Resp 25 H 10/02/20 15:10 BP 96/61 10/02/20 15:10 Pulse Ox 99 10/02/20 15:10 - Orders/Labs/Meds Orders: Active Orders 24 hr Category Date Time Status Admission Status [Patient Status] [ADT] Routine ADT 10/02/20 13:57 Active Bladder Scan [RC] ASDIRECTED Care 10/02/20 11:15 Active Guaiac [OCCULT BLOOD DIAGNOSTIC] [OP] Stat Lab 10/02/20 11:23 Ordered PACKED CELLS [RED BLOOD CELLS LP] [BBK] Stat Lab 10/02/20 10:16 Results TYPE AND SCREEN [BBK] Stat Lab 10/02/20 10:16 Results Sodium Chloride 0.9% [Normal Saline] 1,000 ml Med 10/02/20 12:30 Active IV ASDIRECTED Transfuse PRBC [Transfuse Red Blood Cells] [COMM] Oth 10/02/20 13:43 Ordered Urgent Medication Orders Acetaminophen (Acetaminophen 325 Mg Tab) 650 mg PO Q4H PRN PRN Reason: Pain (Mild 1-3)/fever Docusate Sodium (Docusate Sodium 100 Mg Cap) 100 mg PO BID PRN PRN Reason: Constipation Sodium Chloride (Normal Saline) 1,000 mls @ 75 mls/hr IV ASDIRECTED [facility] Last Admin: 10/02/20 12:48 Dose: 75 mls/hr Documented by: ISMAEL Metoclopramide HCl (Metoclopramide 10 Mg/2 Ml Sdv) 5 mg IVPUSH Q4H PRN PRN Reason: Nausea/Vomiting Oxycodone HCl (Oxycodone 5 Mg Tab) 5 mg PO Q4H PRN PRN Reason: Pain (moderate 4-6) Pantoprazole Sodium (Pantoprazole 40 Mg Vial) 40 mg IVPUSH DAILY MARGOT Labs: Laboratory Tests 10/02/20 10/02/20 10/02/20 Range/Units 10:16 10:16 10:16 WBC 11.47 H (4.23-9.07) K/mm3 RBC 2.00 L (4.63-6.08) M/mm3 Hgb 6.2 L* D (13.7-17.5) gm/dl Hct 21.3 L (40.1-51.0) % MCV 106.5 H D (79.0-92.2) fl MCH 31.0 (25.7-32.2) pg MCHC 29.1 L (32.2-35.5) g/dl RDW Std Deviation 57.5 H (35.1-43.9) fL Plt Count 154 L (163-337) K/mm3 MPV 11.3 (9.4-12.3) fl Neut % (Auto) 75.7 H (34.0-67.9) % Lymph % (Auto) 14.6 L (21.8-53.1) % [place] % (Auto) 8.8 (5.3-12.2) % Eos % (Auto) 0.4 L (0.8-7.0) Baso % (Auto) 0.1 (0.1-1.2) % Neut # (Auto) 8.68 H (1.78-5.38) K/mm3 Lymph # (Auto) 1.67 (1.32-3.57) K/mm3 [place] # (Auto) 1.01 H (0.30-0.82) K/mm3 Eos # (Auto) 0.05 (0.04-0.54) K/mm3 Baso # (Auto) 0.01 (0.01-0.08) K/mm3 Manual Slide Review Abnormal smear ESR (0-15) mm/hr Percent Retic (0.51-1.81) % PT 10.6 (9.7-12.0) SECONDS INR 0.99 APTT 22.7 (21.7-31.4) SECONDS Sodium 142 (136-145) mEq/L Potassium 5.4 H (3.5-5.1) mEq/L Chloride 107 (98-107) mEq/L Carbon Dioxide 27 (21-32) mEq/L Anion Gap 13.4 (5-15) BUN 43 H (7-18) mg/dL Creatinine 1.7 H (0.7-1.3) mg/dL Est Cr Clr Drug Dosing 31.38 mL/min Estimated GFR (MDRD) 38 (>60) mL/min BUN/Creatinine Ratio 25.3 H (14-18) Glucose 120 H (83-115) mg/dL Hemoglobin A1c ( - 5.6) % Calcium 8.3 L (8.5-10.1) mg/dL Magnesium (1.8-2.4) mg/dl Iron (65-175) ug/dL TIBC (100-400) ug/dL % Saturation (20-55) % Transferrin (202-364) mg/dL Total Bilirubin 0.3 (0.2-1.0) mg/dL AST 68 H (15-37) U/L ALT 30 (16-63) U/L Alkaline Phosphatase 115 (46-116) U/L CK-MB (CK-2) (0-3.6) ng/ml Troponin I (0.00-0.056) ng/mL C-Reactive Protein (<1.0) mg/dL NT-Pro-B Natriuret Pep (0-450) pg/mL Total Protein 6.8 (6.4-8.2) g/dl Albumin 3.2 L (3.4-5.0) g/dl Globulin 3.6 gm/dL Albumin/Globulin Ratio 0.9 L (1-2) TSH 3rd Generation (0.358-3.74) uIU/mL SARS-CoV-2 RNA (TOÑA) (NEGATIVE) Blood Type Gel Antibody Screen Crossmatch 10/02/20 10/02/20 10/02/20 Range/Units 10:16 10:16 10:16 WBC (4.23-9.07) K/mm3 RBC (4.63-6.08) M/mm3 Hgb (13.7-17.5) gm/dl Hct (40.1-51.0) % MCV (79.0-92.2) fl MCH (25.7-32.2) pg MCHC (32.2-35.5) g/dl RDW Std Deviation (35.1-43.9) fL Plt Count (163-337) K/mm3 MPV (9.4-12.3) fl Neut % (Auto) (34.0-67.9) % Lymph % (Auto) (21.8-53.1) % [place] % (Auto) (5.3-12.2) % Eos % (Auto) (0.8-7.0) Baso % (Auto) (0.1-1.2) % Neut # (Auto) (1.78-5.38) K/mm3 Lymph # (Auto) (1.32-3.57) K/mm3 [place] # (Auto) (0.30-0.82) K/mm3 Eos # (Auto) (0.04-0.54) K/mm3 Baso # (Auto) (0.01-0.08) K/mm3 Manual Slide Review ESR 60 H (0-15) mm/hr Percent Retic (0.51-1.81) % PT (9.7-12.0) SECONDS INR APTT (21.7-31.4) SECONDS Sodium (136-145) mEq/L Potassium (3.5-5.1) mEq/L Chloride (98-107) mEq/L Carbon Dioxide (21-32) mEq/L Anion Gap (5-15) BUN (7-18) mg/dL Creatinine (0.7-1.3) mg/dL Est Cr Clr Drug Dosing mL/min Estimated GFR (MDRD) (>60) mL/min BUN/Creatinine Ratio (14-18) Glucose (83-115) mg/dL Hemoglobin A1c ( - 5.6) % Calcium (8.5-10.1) mg/dL Magnesium 2.5 H (1.8-2.4) mg/dl Iron (65-175) ug/dL TIBC (100-400) ug/dL % Saturation (20-55) % Transferrin (202-364) mg/dL Total Bilirubin (0.2-1.0) mg/dL AST (15-37) U/L ALT (16-63) U/L Alkaline Phosphatase (46-116) U/L CK-MB (CK-2) 90.4 H (0-3.6) ng/ml Troponin I 9.624 H* (0.00-0.056) ng/mL C-Reactive Protein 0.9 (<1.0) mg/dL NT-Pro-B Natriuret Pep 5104 H (0-450) pg/mL Total Protein (6.4-8.2) g/dl Albumin (3.4-5.0) g/dl Globulin gm/dL Albumin/Globulin Ratio (1-2) TSH 3rd Generation (0.358-3.74) uIU/mL SARS-CoV-2 RNA (TOÑA) (NEGATIVE) Blood Type Gel Antibody Screen Crossmatch 10/02/20 10/02/20 10/02/20 Range/Units 10:16 10:16 10:16 WBC (4.23-9.07) K/mm3 RBC (4.63-6.08) M/mm3 Hgb (13.7-17.5) gm/dl Hct (40.1-51.0) % MCV (79.0-92.2) fl MCH (25.7-32.2) pg MCHC (32.2-35.5) g/dl RDW Std Deviation (35.1-43.9) fL Plt Count (163-337) K/mm3 MPV (9.4-12.3) fl Neut % (Auto) (34.0-67.9) % Lymph % (Auto) (21.8-53.1) % [place] % (Auto) (5.3-12.2) % Eos % (Auto) (0.8-7.0) Baso % (Auto) (0.1-1.2) % Neut # (Auto) (1.78-5.38) K/mm3 Lymph # (Auto) (1.32-3.57) K/mm3 [place] # (Auto) (0.30-0.82) K/mm3 Eos # (Auto) (0.04-0.54) K/mm3 Baso # (Auto) (0.01-0.08) K/mm3 Manual Slide Review ESR (0-15) mm/hr Percent Retic (0.51-1.81) % PT (9.7-12.0) SECONDS INR APTT (21.7-31.4) SECONDS Sodium (136-145) mEq/L Potassium (3.5-5.1) mEq/L Chloride (98-107) mEq/L Carbon Dioxide (21-32) mEq/L Anion Gap (5-15) BUN (7-18) mg/dL Creatinine (0.7-1.3) mg/dL Est Cr Clr Drug Dosing mL/min Estimated GFR (MDRD) (>60) mL/min BUN/Creatinine Ratio (14-18) Glucose (83-115) mg/dL Hemoglobin A1c ( - 5.6) % Calcium (8.5-10.1) mg/dL Magnesium (1.8-2.4) mg/dl Iron 39 L (65-175) ug/dL TIBC 371 (100-400) ug/dL % Saturation 11 L (20-55) % Transferrin 297 (202-364) mg/dL Total Bilirubin (0.2-1.0) mg/dL AST (15-37) U/L ALT (16-63) U/L Alkaline Phosphatase (46-116) U/L CK-MB (CK-2) (0-3.6) ng/ml Troponin I (0.00-0.056) ng/mL C-Reactive Protein (<1.0) mg/dL NT-Pro-B Natriuret Pep (0-450) pg/mL Total Protein (6.4-8.2) g/dl Albumin (3.4-5.0) g/dl Globulin gm/dL Albumin/Globulin Ratio (1-2) TSH 3rd Generation 2.337 (0.358-3.74) uIU/mL SARS-CoV-2 RNA (TOÑA) (NEGATIVE) Blood Type A POSITIVE Gel Antibody Screen Negative Crossmatch See Detail 10/02/20 10/02/20 10/02/20 Range/Units 11:20 11:20 11:34 WBC (4.23-9.07) K/mm3 RBC (4.63-6.08) M/mm3 Hgb (13.7-17.5) gm/dl Hct (40.1-51.0) % MCV (79.0-92.2) fl MCH (25.7-32.2) pg MCHC (32.2-35.5) g/dl RDW Std Deviation (35.1-43.9) fL Plt Count (163-337) K/mm3 MPV (9.4-12.3) fl Neut % (Auto) (34.0-67.9) % Lymph % (Auto) (21.8-53.1) % [place] % (Auto) (5.3-12.2) % Eos % (Auto) (0.8-7.0) Baso % (Auto) (0.1-1.2) % Neut # (Auto) (1.78-5.38) K/mm3 Lymph # (Auto) (1.32-3.57) K/mm3 [place] # (Auto) (0.30-0.82) K/mm3 Eos # (Auto) (0.04-0.54) K/mm3 Baso # (Auto) (0.01-0.08) K/mm3 Manual Slide Review ESR (0-15) mm/hr Percent Retic 5.14 H (0.51-1.81) % PT (9.7-12.0) SECONDS INR APTT (21.7-31.4) SECONDS Sodium (136-145) mEq/L Potassium (3.5-5.1) mEq/L Chloride (98-107) mEq/L Carbon Dioxide (21-32) mEq/L Anion Gap (5-15) BUN (7-18) mg/dL Creatinine (0.7-1.3) mg/dL Est Cr Clr Drug Dosing mL/min Estimated GFR (MDRD) (>60) mL/min BUN/Creatinine Ratio (14-18) Glucose (83-115) mg/dL Hemoglobin A1c 5.6 ( - 5.6) % Calcium (8.5-10.1) mg/dL Magnesium (1.8-2.4) mg/dl Iron (65-175) ug/dL TIBC (100-400) ug/dL % Saturation (20-55) % Transferrin (202-364) mg/dL Total Bilirubin (0.2-1.0) mg/dL AST (15-37) U/L ALT (16-63) U/L Alkaline Phosphatase (46-116) U/L CK-MB (CK-2) (0-3.6) ng/ml Troponin I (0.00-0.056) ng/mL C-Reactive Protein (<1.0) mg/dL NT-Pro-B Natriuret Pep (0-450) pg/mL Total Protein (6.4-8.2) g/dl Albumin (3.4-5.0) g/dl Globulin gm/dL Albumin/Globulin Ratio (1-2) TSH 3rd Generation (0.358-3.74) uIU/mL SARS-CoV-2 RNA (TOÑA) Negative (NEGATIVE) Blood Type Gel Antibody Screen Crossmatch Meds: Medications Generic Name Dose Route Start Last Admin Trade Name Adrián PRN Reason Stop Dose Admin Acetaminophen 650 mg 10/02/20 14:08 Acetaminophen 325 Mg Tab PO Q4H PRN Pain (Mild 1-3)/fever Docusate Sodium 100 mg 10/02/20 14:08 Docusate Sodium 100 Mg Cap PO BID PRN Constipation Sodium Chloride 1,000 mls @ 75 mls/hr 10/02/20 12:30 10/02/20 12:48 Normal Saline IV 75 mls/hr ASDIRECTED MARGOT Administration Metoclopramide HCl 5 mg 10/02/20 14:35 Metoclopramide 10 Mg/2 Ml Sdv IVPUSH Q4H PRN Nausea/Vomiting Oxycodone HCl 5 mg 10/02/20 14:08 Oxycodone 5 Mg Tab PO Q4H PRN Pain (moderate 4-6) Pantoprazole Sodium 40 mg 10/02/20 15:15 Pantoprazole 40 Mg Vial IVPUSH DAILY MARGOT Discontinued Medications Generic Name Dose Route Start Last Admin Trade Name Freq PRN Reason Stop Dose Admin Aspirin 324 mg 10/02/20 13:16 10/02/20 13:27 Aspirin 81 Mg Tab.Chew PO 10/02/20 13:17 324 mg ONETIME ONE Administration Diphenhydramine HCl Confirm 10/02/20 14:51 10/02/20 14:56 Diphenhydramine 50 Mg/Ml Sdv Administered 10/02/20 14:52 Not Given Dose 50 mg .ROUTE .STK-MED ONE Diphenhydramine HCl 12.5 mg 10/02/20 14:52 10/02/20 14:54 Diphenhydramine 50 Mg/Ml Sdv IVPUSH 10/02/20 14:53 12.5 mg ONETIME ONE Administration Furosemide 40 mg 10/02/20 13:42 10/02/20 14:55 Furosemide 40 Mg/4 Ml Vial IVPUSH 10/02/20 13:43 40 mg NOW ONE Administration Lorazepam 0.25 mg 10/02/20 13:11 10/02/20 13:27 Lorazepam 2 Mg/Ml Sdv IV 10/02/20 13:12 0.25 mg ONETIME ONE Administration Metoclopramide HCl 7.5 mg 10/02/20 13:10 10/02/20 13:27 Metoclopramide 10 Mg/2 Ml Sdv IVPUSH 10/02/20 13:11 7.5 mg ONETIME ONE Administration - Radiology Interpretation Free Text/Narrative:: 89-year-old male attends the ED with chief complaint of 2 to 3 months of gradually worsening dyspnea on minimal exertion and severe overwhelming fatigue. He can only walk 10 to 15 feet from the bedroom to the bathroom before he is short of breath. He cannot make 5 steps up a stairwell before he has to rest. He said this is a dramatic change for him over the last 2 to 3 months. Patient has a history of severe coronary disease having bypass surgery x2 and has numerous stents in place. He has had myocardial infarction. He has COPD and recently seen the inspector packager 4 days ago and was told that things look to be okay. He denies any recent problems with chest pain. He has no recent falls. Exam reveals him to be quite pallid with marked blepharal pallor and pallor of the creases in his hands suggesting that he is anemic. He does not believe he has seen any blood in his stool or urine. No abdominal pain to suggest peptic ulcer disease. Plan routine labs to be done including a glycosylated protein as he is diabetic and as well as a TSH. - Re-Assessments/Exams Free Text/Narrative Re-Assessment/Exam: 10/02/20 11:10: Hemoglobin has returned at 6.2 i.e. severe anemia. He will be crossmatched for 3 units of packed RBCs. Patient has agreed to blood transfusion. 10/02/20 12:19 White count is slightly elevated at 11.47. And she will is 75.7% neutrophils. Hemoglobin is 6.2 very low with a hematocrit of 21.3 MCV is elevated at 106.5 and he is not known to drink alcohol heavily. Platelet count is low normal at 154,000. Sed rate is 60 reticulocyte count is markedly elevated at 5.14. PT is 10.6 with an INR of 0.99 and a PTT of 22.7 sodium is 142 with a potassium of 5.4 slightly elevated. Chloride is 107 with a bicarb of 27 and an anion gap of 13.4. BUN is 43 with a creatinine of 1.7 estimated GFR is 38 i.e. stage IIIb renal insufficiency glucose 120 with a hemoglobin A1c of 5.6. Calcium is 8.3 magnesium is slightly elevated at 2.5 iron is 39 and TIBC is 371 which is still in the normal range. Percent saturation is low however at 11 and serum transferrin is normal at 297. Bilirubin is 0.3 with an AST of 68 and an ALT of 30. Alk phosphatase is 115 CK-MB fraction is markedly elevated at 90.4 and troponin I is markedly elevated at 9.624. C-reactive protein is 0.9 BNP 5104 total protein is 6.8 with an albumin fraction of 3.2 globulin of 3.6 TSH normal at 2.337. Chest x-ray reveals marked cardiomegaly. Lungs show scattered parenchymal changes which appears stable from prior exam. Chronic pleural calcification noted within the right lung base. Previous midline sternotomy appreciated with wires. Bony structures are otherwise grossly intact. I felt there was also a modest amount of diffuse vascular congestion with prominence of both pulmonary arteries. 10/02/20 12:31 I have discussed the above findings with the patient and his son. They have asked me to discuss the case with executive cyber leader who is Dr. Castano in [facility]. Due to his age I do not anticipate that they are going to want to be aggressive especially after 2 bypass surgeries and stent placement in the past. There likely is not much else that can be done but I will discuss with cardiology in this regard. 10/02/20 13:13 I did speak with Dr. Castano the patient's executive cyber leader at [facility] in [place]. In regards to his markedly elevated cardiac markers Dr. [place] felt that his overall health is very poor and with his kidney function being poor he is not really a candidate for an angiogram. He recom mends treating him medically. I did discuss this with the son and the patient. He is feeling nauseated at this point time. I will give him Reglan 7.5 mg IV and he is quite anxious. I will give him Ativan 0.25 mg IV. 10/02/20 13:42 I have spoken with Dr. Stiven Urbano media sales consultant hospitalist and he will see the patient in the emergency department with a view to admission to the hospital for blood transfusions. Patient will receive Lasix 40 mg IV at this point time for congestive heart failure. He will be very easy to volume overload with blood transfusions due to congestive heart failure. The Lasix 40 mg IV should also alleviate his mild hyperkalemia with potassium of 5.4. Analysis remains extremely guarded. 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 10/02/20 14:53 patient seem to develop some anxiety i.e. akathisia after receiving Reglan 7.5 mg IV for nausea relief. He will be given Benadryl 12.5 mg IV for this. 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, stage 3b Chronic obstructive pulmonary disease (COPD) Qualifiers: COPD type: emphysema Emphysema type: panlobular Qualified Code(s): J43.1 - Panlobular emphysema Congestive heart failure Qualifiers: Heart failure type: diastolic Heart failure chronicity: acute on chronic Qualified Code(s): I50.33 - Acute on chronic diastolic (congestive) heart failure Hypotension Qualifiers: Hypotension type: unspecified hypotension type Qualified Code(s): I95.9 - Hypotension, unspecified Sepsis Event Note (ED) - Evaluation Sepsis Screening Result: No Definite Risk - Focused Exam Vital Signs: Vital Signs Temp Temp Pulse Resp BP Pulse Ox 10/02/20 12:49 35.9 C L 79 27 H 93/56 L 10/02/20 12:45 35.9 C L 76 24 H 90/53 L 10/02/20 12:39 35.9 C L 79 26 H 94/49 L 10/02/20 12:34 35.8 C L 79 16 91/55 L 10/02/20 10:02 36.4 C 76 18 85/65 L 100 - My Orders Last 24 Hours: My Active Orders 10/02/20 10:16 PACKED CELLS [RED BLOOD CELLS LP] [BBK] Stat TYPE AND SCREEN [BBK] Stat 10/02/20 11:15 Bladder Scan [RC] ASDIRECTED 10/02/20 11:23 Guaiac [OCCULT BLOOD DIAGNOSTIC] [OP] Stat 10/02/20 12:30 Sodium Chloride 0.9% [Normal Saline] 1,000 ml IV ASDIRECTED 10/02/20 13:43 Transfuse PRBC [Transfuse Red Blood Cells] [COMM] Urgent 10/02/20 13:57 Admission Status [Patient Status] [ADT] Routine - Assessment/Plan Last 24 Hours: My Active Orders 10/02/20 10:16 PACKED CELLS [RED BLOOD CELLS LP] [BBK] Stat TYPE AND SCREEN [BBK] Stat 10/02/20 11:15 Bladder Scan [RC] ASDIRECTED 10/02/20 11:23 Guaiac [OCCULT BLOOD DIAGNOSTIC] [OP] Stat 10/02/20 12:30 Sodium Chloride 0.9% [Normal Saline] 1,000 ml IV ASDIRECTED 10/02/20 13:43 Transfuse PRBC [Transfuse Red Blood Cells] [COMM] Urgent 10/02/20 13:57 Admission Status [Patient Status] [ADT] Routine
[2020-10-02 11:48] LABS: HEMOGLOBIN A1C 5.6 %
--- NOTE | 2020-10-02 12:09 | CR ---
Chest: Portable view of the chest was obtained. Comparison: Prior chest x-ray of 08/13/18. Heart is enlarged. Lungs show scattered parenchymal change which appears stable from prior exam. Chronic pleural calcification noted within the right lung base. Previous sternotomy is noted. Bony structures are grossly intact. Impression: 1. Findings as noted above. No change from previous chest x-ray is appreciated. Diagnostic code #2
[2020-10-02] MEDS ORDERED: Sodium Chloride 0.9% 1,000 ML IV SCH (12:30)
[2020-10-02] MEDS ORDERED: Metoclopramide 10 MG/2 ML SDV IVPUSH ONE (13:10)
[2020-10-02] MEDS ORDERED: LORazepam 2 MG/ML SDV IV ONE (13:11)
[2020-10-02] MEDS ORDERED: Aspirin 81 MG Tab.Chew PO ONE (13:16)
[2020-10-02] MEDS ORDERED: Furosemide 40 MG/4 ML VIAL IVPUSH ONE (13:42)
[2020-10-02] MEDS ORDERED: Docusate Sodium 100 MG Cap PO PRN (14:08)
[2020-10-02] MEDS ORDERED: Acetaminophen 325 MG Tab PO PRN (14:08)
[2020-10-02] MEDS ORDERED: oxyCODONE 5 MG Tab PO PRN (14:08)
--- NOTE | 2020-10-02 14:34 | PCM.HP.2 ---
<Chel Arreguin M - Last Filed: 10/02/20 15:01> H&P History of Present Illness - General Date of Service: 10/02/20 Admit Problem/Dx: Admission Diagnosis/Problem Admission Diagnosis/Problem Anemia Source of Information: Patient, Family, Provider History Limitations: Reports: No Limitations - History of Present Illness Initial Comments - Free Text/Narative: 89-year-old male presents to the emergency department today with complaints of feeling weak and short of breath on minimal exertion for the past several weeks. He was recently seen by his offal separator in [place] 4 days ago and was told that everything looked okay as far as his lungs were concerned. He was also seen by his bar assistant about 2 weeks ago and no changes were made to his m edications at that time. He states that especially over the course of the past couple of days he has had significant decrease in his energy and he is easily fatigued on minimal exertion. He is chronically on oxygen as he wears 2 to 3 L per nasal cannula and per his son he has been on oxygen for the past several years. He is quite pale and he states that over the past couple of weeks he has noted black stools however he just made this known today since being in the emergency department. He has a history of open heart surgery in the past with triple bypass on 2 separate occasion most recently about 5 years ago. He denies any chest pain or pressure associated with this shortness of breath and fatigue. He denies any abdominal pain, nausea, vomiting or diarrhea. The patient does not take any chronic anticoagulation, he is not on Plavix or aspirin however he does take meloxicam. Vital signs in the emergency department reveal a temp of 35.9 Celsius, pulse of 79, respiratory rate of 27, blood pressure 93/56, pulse ox 100% on 2 L per nasal cannula. Labs in the ED reveal a WBC of 11.47, hemoglobin 6.2, hematocrit 21.3, MCV 106.5, MCH 31.0 MCHC 29.1, RDW standard deviation 57.5, platelet count 154, pro time 10.6, INR 0.99, PTT 22.7, sodium 142, potassium 5.4, chloride 107, carbon d ioxide 27, anion gap 13.4, BUN 43, creatinine 1.7, GFR 38, BUN/creatinine ratio 25.3, glucose 120, calcium 8.3, AST 68, ALT 30, alk phos 115, total protein 6.8, albumin 3.2, ESR 60, magnesium 2.5, CK-MB 90.4, troponin IX 0.624, C-reactive protein 0.9, proBNP 5104, iron 39, TIBC 371, O2 saturation 11, transferrin 297, reticulocyte count 5.14, TSH 2.33, the patient is Covid negative. Emergency department the patient was started on normal saline at 75 mL's per hour and he was typed and crossmatched for 3 units. These were transfusing at the time of my assessment. Patient's blood pressure at the time of my assessment was 71 systolic. The ED provider initially had recommended that the patient receive Lasix in between each unit of blood transfused however I do not feel that he will be able to tolerate this. On auscultation his lung sounds appreciated crackles bilaterally with a fine expiratory wheeze noted bilaterally. No murmurs were noted. The patient also did complain of nausea in the emergency department so he got 7.5 mg of Reglan for that. He is also slightly anxious and he received 0.25 mg of Ativan IV x1 dose. He also did receive [address] Arnett did speak with the patient's bar assistant, Dr. Castano, in regards to his elevated cardiac markers and Dr. Castano felt that his overall health is very poor and with his kidney function being poor he is not really a candidate for an angiogram. He recommends treating him medically. Dr. Arnett did speak with the patient and his son at length regarding the patient's current status and their understanding. I also spoke with the son separately and told him the severity of the patient's status and that he very likely could not make it through this hospitalization as his heart has taken a significant insult and it is very weak. He does verbalize understanding of this and states he is going to call family and notify them that they should all be aware that he could very likely not make it through this hospitalization. I did perform a rectal exam on the patient for occult blood and this was grossly positive. The patient is a DNR/DNI. However, he will be admitted as an inpatient to ICU for closer observation. Onset of Symptoms: Reports: Gradual Associated Symptoms: Reports: Shortness of Breath, Weakness - Related Data Allergies/Adverse Reactions: Allergies Allergy/AdvReac Type Severity Reaction Status Date / Time hydromorphone [From Dilaudid] Allergy Rash Verified 10/02/20 10:06 Iodinated Contrast Media Allergy Hives Verified 10/02/20 10:06 [Iodinated Contrast- Oral and IV Dye] Penicillins Allergy Rash Verified 10/02/20 10:06 Home Medications: Home Meds Simvastatin [Zocor] 40 mg PO BEDTIME 04/28/14 [History] Oxygen 3 liter EMELY ASDIRECTED PRN 07/01/17 [History] Acetaminophen [Tylenol] 650 mg PO Q6H PRN 08/08/18 [History] Carboxymethylcellulose Sodium [Refresh Celluvisc] 1 drop EYEBOTH BID 08/08/18 [History] Ibuprofen 400 mg PO BIDAC PRN 08/08/18 [History] Nitroglycerin [Nitrostat] 0.4 mg SL ASDIRECTED PRN 08/08/18 [History] Sertraline [Zoloft] 50 mg PO DAILY 08/08/18 [History] Sodium Chloride 7% [HyperSal 7%] 4 ml NEB DAILY 08/08/18 [History] levalbuterol HCL [Xopenex] 1.25 mg INH TID PRN 08/08/18 [History] traMADol [Ultram] 50 mg PO QID PRN 08/08/18 [History] Aspirin [Aspirin EC] 81 mg PO DAILY 10/02/20 [History] Brimonidine [Alphagan P 0.15% Ophth Soln] 1 drop OP BID 10/02/20 [History] Calcium Carbonate [Tums] 2 tab PO QID PRN 10/02/20 [History] Celecoxib [CeleBREX] 200 mg PO DAILY 10/02/20 [History] Cerovite Advanced Formula. 1 tab PO DAILY 10/02/20 [History] Fluticasone Furoate [Flonase Sensimist] 1 spray EMELY DAILY 10/02/20 [History] Furosemide [Lasix] 20 mg PO DAILY 10/02/20 [History] Insulin Glargine,Hum.Rec.Anlog [Lantus Solostar] 24 units SQ BID 10/02/20 [History] Losartan [Cozaar] 25 mg PO DAILY 10/02/20 [History] Magnesium Oxide [Magnesium] 400 mg PO BID 10/02/20 [History] Melatonin 2 mg PO BEDTIME 10/02/20 [History] Meloxicam 15 mg PO BID PRN 10/02/20 [History] Metoprolol Succinate [Toprol XL] 25 mg PO DAILY 10/02/20 [History] Roflumilast [Daliresp] 500 mcg PO DAILY 10/02/20 [History] SitaGLIPtin [Januvia] 100 mg PO DAILY 10/02/20 [History] Vit C/E/Zn/Coppr/Lutein/Zeaxan [Preservision Areds 2 Softgel] 1 tab PO DAILY 10/02/20 [History] glipiZIDE [Glipizide ER] 10 mg PO DAILY 10/02/20 [History] guaiFENesin [Mucinex] 600 mg PO BID 10/02/20 [History] levalbuterol HCL [Levalbuterol Concentrate] 1 ampule IH QID 10/02/20 [History] Past Medical History HEENT History: Reports: Hard of Hearing, Impaired Vision Other HEENT History: corrected with glasses and PATRICIA Cardiovascular History: Reports: Bypass (He has had coronary bypass surgery twice last time being about 5 years ago and is unsure whether he had triple or), CAD, Heart Failure, High Cholesterol, Hypertension, CA ( double bypass at that time. He is also got numerous coronary stents in place.), SOB on Exertion, Stents, Other (See Below) Other Cardiovascular History: cardiomegaly Respiratory History: Reports: Bronchitis, Recurrent, COPD (Severe COPD not on oxygen.), Pneumonia, Recurrent, Pulmonary Fibrosis, SOB Other Respiratory History: hypoxia, chronic oxygen use 3-4 liters per NC Genitourinary History: Reports: BPH (Nocturia x3 or 4.), Urinary Incontinence Musculoskeletal History: Reports: Arthritis Neurological History: Reports: Concussion Psychiatric History: Reports: Dementia, Other (See Below) Other Psychiatric History: claustrophobia Endocrine/Metabolic History: Reports: Diabetes, Type II - Infectious Disease History Infectious Disease History: Reports: Chicken Pox, Measles, Mumps, Rubella - Past Surgical History HEENT Surgical History: Reports: Cataract Surgery Cardiovascular Surgical History: Reports: Coronary Artery Bypass Other Cardiovascular Surgeries/Procedures: CABGx3 15 yrs ago Respiratory Surgical History: Reports: None Other Respiratory Surgeries/Procedures: chest tube on L side Male Surgical History: Reports: None Endocrine Surgical History: Reports: None Neurological Surgical History: Reports: None Musculoskeletal Surgical History: Reports: None Social & Family History - Family History Family Medical History: No Pertinent Family History - Tobacco Use Tobacco Use Status *Q: Never Tobacco User - Caffeine Use Caffeine Use: Reports: Coffee Other Caffeine Use: 2 cups/day - Recreational Drug Use Recreational Drug Use: No - Living Situation & Occupation Living situation: Reports: Extended Care Facility (Resides at [facility]), Assisted Living Occupation: Retired (Lives at [facility].) H&P Review of Systems - Review of Systems: Review Of Systems: See Below General: Reports: Weakness, Fatigue. Denies: Fever, Chills, Malaise HEENT: Reports: No Symptoms Pulmonary: Reports: Shortness of Breath. Denies: Wheezing, Pleuritic Chest Pain, Cough, Sputum Cardiovascular: Reports: Dyspnea on Exertion, Edema (Patient has chronic lower extremity edema), Lightheadedness. Denies: Chest Pain, Palpitations, Orthopnea, Syncope Gastrointestinal: Reports: Black Stool (Past couple of weeks). Denies: Abdominal Pain, Bloody Stool, Constipation, Diarrhea, Nausea, Vomiting Genitourinary: Reports: No Symptoms Musculoskeletal: Reports: Other (Generalized weakness) Skin: Reports: Pallor Psychiatric: Reports: No Symptoms Neurological: Reports: No Symptoms Hematologic/Lymphatic: Reports: No Symptoms Immunologic: Reports: No Symptoms Exam - Exam Exam: See Below - Vital Signs Vital Signs: Last Vital Signs Temp 96.7 F L 10/02/20 12:49 Pulse 79 10/02/20 12:49 Resp 27 H 10/02/20 12:49 BP 93/56 L 10/02/20 12:49 Pulse Ox 100 10/02/20 10:02 Weight: 85.729 kg - Exam Quality Assessment: Supplemental Oxygen (Wears 2 to 3 L per nasal cannula chronically), DVT Prophylaxis (SCDs; Lovenox would be contraindicated at this time) General: Alert, Oriented HEENT: Conjunctiva Clear, Mucosa Moist & [place], Nares Patent. No: Hearing Intact (Hard of hearing he does wear hearing aids) Neck: Supple, Trachea Midline Lungs: Crackles (Bilateral bases), Wheezing (Expiratory wheeze noted bilaterally). No: Clear to Auscultation Cardiovascular: Regular Rate, Regular Rhythm, Normal S1, Normal S2 GI/Abdominal Exam: Normal Bowel Sounds, Soft, Non-Tender, No Distention, Other (Umbilical hernia noted) (Male) Exam: Deferred Rectal (Males) Exam: Normal Exam, Normal Rectal Tone, Black Stool, Heme + Stool Back Exam: Normal Inspection Extremities: Normal Inspection, Normal Range of Motion, Non-Tender, Pedal Edema (Trace to bilateral lower extremities) Peripheral Pulses: 2+: Radial (L), Radial (R), Dorsalis Pedis (L), Dorsalis Pedis (R) Skin: Warm, Dry, Intact, Other (Pale) Neuro Extensive - Mental Status: Alert, Oriented x3, Normal Mood/Affect Psychiatric: Alert, Normal Affect, Normal Mood - Patient Data Lab Results Last 24 hrs: Laboratory Results - last 24 hr 10/02/20 10/02/20 10/02/20 Range/Units 10:16 10:16 10:16 WBC 11.47 H (4.23-9.07) K/mm3 RBC 2.00 L (4.63-6.08) M/mm3 Hgb 6.2 L* D (13.7-17.5) gm/dl Hct 21.3 L (40.1-51.0) % MCV 106.5 H D (79.0-92.2) fl MCH 31.0 (25.7-32.2) pg MCHC 29.1 L (32.2-35.5) g/dl RDW Std Deviation 57.5 H (35.1-43.9) fL Plt Count 154 L (163-337) K/mm3 MPV 11.3 (9.4-12.3) fl Neut % (Auto) 75.7 H (34.0-67.9) % Lymph % (Auto) 14.6 L (21.8-53.1) % Sevier % (Auto) 8.8 (5.3-12.2) % Eos % (Auto) 0.4 L (0.8-7.0) Baso % (Auto) 0.1 (0.1-1.2) % Neut # (Auto) 8.68 H (1.78-5.38) K/mm3 Lymph # (Auto) 1.67 (1.32-3.57) K/mm3 Sevier # (Auto) 1.01 H (0.30-0.82) K/mm3 Eos # (Auto) 0.05 (0.04-0.54) K/mm3 Baso # (Auto) 0.01 (0.01-0.08) K/mm3 Manual Slide Review Abnormal smear ESR (0-15) mm/hr Percent Retic (0.51-1.81) % PT 10.6 (9.7-12.0) SECONDS INR 0.99 APTT 22.7 (21.7-31.4) SECONDS Sodium 142 (136-145) mEq/L Potassium 5.4 H (3.5-5.1) mEq/L Chloride 107 (98-107) mEq/L Carbon Dioxide 27 (21-32) mEq/L Anion Gap 13.4 (5-15) BUN 43 H (7-18) mg/dL Creatinine 1.7 H (0.7-1.3) mg/dL Est Cr Clr Drug Dosing 31.38 mL/min Estimated GFR (MDRD) 38 (>60) mL/min BUN/Creatinine Ratio 25.3 H (14-18) Glucose 120 H (83-115) mg/dL Hemoglobin A1c ( - 5.6) % Calcium 8.3 L (8.5-10.1) mg/dL Magnesium (1.8-2.4) mg/dl Iron (65-175) ug/dL TIBC (100-400) ug/dL % Saturation (20-55) % Transferrin (202-364) mg/dL Total Bilirubin 0.3 (0.2-1.0) mg/dL AST 68 H (15-37) U/L ALT 30 (16-63) U/L Alkaline Phosphatase 115 (46-116) U/L CK-MB (CK-2) (0-3.6) ng/ml Troponin I (0.00-0.056) ng/mL C-Reactive Protein (<1.0) mg/dL NT-Pro-B Natriuret Pep (0-450) pg/mL Total Protein 6.8 (6.4-8.2) g/dl Albumin 3.2 L (3.4-5.0) g/dl Globulin 3.6 gm/dL Albumin/Globulin Ratio 0.9 L (1-2) TSH 3rd Generation (0.358-3.74) uIU/mL SARS-CoV-2 RNA (TOÑA) (NEGATIVE) Blood Type Gel Antibody Screen Crossmatch 10/02/20 10/02/20 10/02/20 Range/Units 10:16 10:16 10:16 WBC (4.23-9.07) K/mm3 RBC (4.63-6.08) M/mm3 Hgb (13.7-17.5) gm/dl Hct (40.1-51.0) % MCV (79.0-92.2) fl MCH (25.7-32.2) pg MCHC (32.2-35.5) g/dl RDW Std Deviation (35.1-43.9) fL Plt Count (163-337) K/mm3 MPV (9.4-12.3) fl Neut % (Auto) (34.0-67.9) % Lymph % (Auto) (21.8-53.1) % Sevier % (Auto) (5.3-12.2) % Eos % (Auto) (0.8-7.0) Baso % (Auto) (0.1-1.2) % Neut # (Auto) (1.78-5.38) K/mm3 Lymph # (Auto) (1.32-3.57) K/mm3 Sevier # (Auto) (0.30-0.82) K/mm3 Eos # (Auto) (0.04-0.54) K/mm3 Baso # (Auto) (0.01-0.08) K/mm3 Manual Slide Review ESR 60 H (0-15) mm/hr Percent Retic (0.51-1.81) % PT (9.7-12.0) SECONDS INR APTT (21.7-31.4) SECONDS Sodium (136-145) mEq/L Potassium (3.5-5.1) mEq/L Chloride (98-107) mEq/L Carbon Dioxide (21-32) mEq/L Anion Gap (5-15) BUN (7-18) mg/dL Creatinine (0.7-1.3) mg/dL Est Cr Clr Drug Dosing mL/min Estimated GFR (MDRD) (>60) mL/min BUN/Creatinine Ratio (14-18) Glucose (83-115) mg/dL Hemoglobin A1c ( - 5.6) % Calcium (8.5-10.1) mg/dL Magnesium 2.5 H (1.8-2.4) mg/dl Iron (65-175) ug/dL TIBC (100-400) ug/dL % Saturation (20-55) % Transferrin (202-364) mg/dL Total Bilirubin (0.2-1.0) mg/dL AST (15-37) U/L ALT (16-63) U/L Alkaline Phosphatase (46-116) U/L CK-MB (CK-2) 90.4 H (0-3.6) ng/ml Troponin I 9.624 H* (0.00-0.056) ng/mL C-Reactive Protein 0.9 (<1.0) mg/dL NT-Pro-B Natriuret Pep 5104 H (0-450) pg/mL Total Protein (6.4-8.2) g/dl Albumin (3.4-5.0) g/dl Globulin gm/dL Albumin/Globulin Ratio (1-2) TSH 3rd Generation (0.358-3.74) uIU/mL SARS-CoV-2 RNA (TOÑA) (NEGATIVE) Blood Type Gel Antibody Screen Crossmatch 10/02/20 10/02/20 10/02/20 Range/Units 10:16 10:16 10:16 WBC (4.23-9.07) K/mm3 RBC (4.63-6.08) M/mm3 Hgb (13.7-17.5) gm/dl Hct (40.1-51.0) % MCV (79.0-92.2) fl MCH (25.7-32.2) pg MCHC (32.2-35.5) g/dl RDW Std Deviation (35.1-43.9) fL Plt Count (163-337) K/mm3 MPV (9.4-12.3) fl Neut % (Auto) (34.0-67.9) % Lymph % (Auto) (21.8-53.1) % Sevier % (Auto) (5.3-12.2) % Eos % (Auto) (0.8-7.0) Baso % (Auto) (0.1-1.2) % Neut # (Auto) (1.78-5.38) K/mm3 Lymph # (Auto) (1.32-3.57) K/mm3 Sevier # (Auto) (0.30-0.82) K/mm3 Eos # (Auto) (0.04-0.54) K/mm3 Baso # (Auto) (0.01-0.08) K/mm3 Manual Slide Review ESR (0-15) mm/hr Percent Retic (0.51-1.81) % PT (9.7-12.0) SECONDS INR APTT (21.7-31.4) SECONDS Sodium (136-145) mEq/L Potassium (3.5-5.1) mEq/L Chloride (98-107) mEq/L Carbon Dioxide (21-32) mEq/L Anion Gap (5-15) BUN (7-18) mg/dL Creatinine (0.7-1.3) mg/dL Est Cr Clr Drug Dosing mL/min Estimated GFR (MDRD) (>60) mL/min BUN/Creatinine Ratio (14-18) Glucose (83-115) mg/dL Hemoglobin A1c ( - 5.6) % Calcium (8.5-10.1) mg/dL Magnesium (1.8-2.4) mg/dl Iron 39 L (65-175) ug/dL TIBC 371 (100-400) ug/dL % Saturation 11 L (20-55) % Transferrin 297 (202-364) mg/dL Total Bilirubin (0.2-1.0) mg/dL AST (15-37) U/L ALT (16-63) U/L Alkaline Phosphatase (46-116) U/L CK-MB (CK-2) (0-3.6) ng/ml Troponin I (0.00-0.056) ng/mL C-Reactive Protein (<1.0) mg/dL NT-Pro-B Natriuret Pep (0-450) pg/mL Total Protein (6.4-8.2) g/dl Albumin (3.4-5.0) g/dl Globulin gm/dL Albumin/Globulin Ratio (1-2) TSH 3rd Generation 2.337 (0.358-3.74) uIU/mL SARS-CoV-2 RNA (TOÑA) (NEGATIVE) Blood Type A POSITIVE Gel Antibody Screen Negative Crossmatch See Detail 10/02/20 10/02/20 10/02/20 Range/Units 11:20 11:20 11:34 WBC (4.23-9.07) K/mm3 RBC (4.63-6.08) M/mm3 Hgb (13.7-17.5) gm/dl Hct (40.1-51.0) % MCV (79.0-92.2) fl MCH (25.7-32.2) pg MCHC (32.2-35.5) g/dl RDW Std Deviation (35.1-43.9) fL Plt Count (163-337) K/mm3 MPV (9.4-12.3) fl Neut % (Auto) (34.0-67.9) % Lymph % (Auto) (21.8-53.1) % Sevier % (Auto) (5.3-12.2) % Eos % (Auto) (0.8-7.0) Baso % (Auto) (0.1-1.2) % Neut # (Auto) (1.78-5.38) K/mm3 Lymph # (Auto) (1.32-3.57) K/mm3 Sevier # (Auto) (0.30-0.82) K/mm3 Eos # (Auto) (0.04-0.54) K/mm3 Baso # (Auto) (0.01-0.08) K/mm3 Manual Slide Review ESR (0-15) mm/hr Percent Retic 5.14 H (0.51-1.81) % PT (9.7-12.0) SECONDS INR APTT (21.7-31.4) SECONDS Sodium (136-145) mEq/L Potassium (3.5-5.1) mEq/L Chloride (98-107) mEq/L Carbon Dioxide (21-32) mEq/L Anion Gap (5-15) BUN (7-18) mg/dL Creatinine (0.7-1.3) mg/dL Est Cr Clr Drug Dosing mL/min Estimated GFR (MDRD) (>60) mL/min BUN/Creatinine Ratio (14-18) Glucose (83-115) mg/dL Hemoglobin A1c 5.6 ( - 5.6) % Calcium (8.5-10.1) mg/dL Magnesium (1.8-2.4) mg/dl Iron (65-175) ug/dL TIBC (100-400) ug/dL % Saturation (20-55) % Transferrin (202-364) mg/dL Total Bilirubin (0.2-1.0) mg/dL AST (15-37) U/L ALT (16-63) U/L Alkaline Phosphatase (46-116) U/L CK-MB (CK-2) (0-3.6) ng/ml Troponin I (0.00-0.056) ng/mL C-Reactive Protein (<1.0) mg/dL NT-Pro-B Natriuret Pep (0-450) pg/mL Total Protein (6.4-8.2) g/dl Albumin (3.4-5.0) g/dl Globulin gm/dL Albumin/Globulin Ratio (1-2) TSH 3rd Generation (0.358-3.74) uIU/mL SARS-CoV-2 RNA (TOÑA) Negative (NEGATIVE) Blood Type Gel Antibody Screen Crossmatch Result Diagrams: 10/02/20 10:16 10/02/20 10:16 Sepsis Event Note - Evaluation Sepsis Screening Result: No Definite Risk - Focused Exam Vital Signs: Vital Signs Temp Temp Pulse Resp BP Pulse Ox 10/02/20 12:49 96.7 F L 79 27 H 93/56 L 10/02/20 12:45 96.7 F L 76 24 H 90/53 L 10/02/20 12:39 96.6 F L 79 26 H 94/49 L 10/02/20 12:34 96.4 F L 79 16 91/55 L 10/02/20 10:02 97.5 F 76 18 85/65 L 100 *Q Meaningful Use (ADM) - VTE *Q VTE Pharmacological Contraindications *Q: Active Hemorrhage - Problem List (1) CHF, Congestive heart failure SNOMED Code(s): 95944271 ICD Code: I50.9 - HEART FAILURE, UNSPECIFIED Status: Acute Priority: High Current Visit: Yes (2) Renal insufficiency SNOMED Code(s): 079453095, 913801954 ICD Code: N28.9 - DISORDER OF KIDNEY AND URETER, UNSPECIFIED Status: Chronic Priority: High Current Visit: Yes (3) Hypotension SNOMED Code(s): 09955592 ICD Code: I95.9 - HYPOTENSION, UNSPECIFIED Status: Acute Priority: High Current Visit: Yes Qualifiers: Hypotension type: unspecified hypotension type Qualified Code(s): I95.9 - Hypotension, unspecified (4) Anemia SNOMED Code(s): 777543588 ICD Code: D64.9 - ANEMIA, UNSPECIFIED Status: Acute Priority: High Current Visit: Yes Qualifiers: Anemia type: iron deficiency Iron deficiency anemia type: chronic blood loss Qualified Code(s): D50.0 - Iron deficiency anemia secondary to blood loss (chronic) (5) Elevated troponin I measurement SNOMED Code(s): 748271546 ICD Code: R77.8 - OTHER SPECIFIED ABNORMALITIES OF PLASMA PROTEINS Status: Acute Priority: High Current Visit: Yes Problem List Initiated/Reviewed/Updated: Yes Orders Last 24hrs: Active Orders 24 hr Category Date Time Status Admission Status [Patient Status] [ADT] Routine ADT 10/02/20 13:57 Active Patient Status [ADT] Routine ADT 10/02/20 14:08 Ordered Antiembolic Devices [RC] PER UNIT ROUTINE Care 10/02/20 14:11 Ordered Bladder Scan [RC] ASDIRECTED Care 10/02/20 11:15 Active Cardiac Monitoring [RC] CONTINUOUS Care 10/02/20 14:10 Ordered EKG Documentation Completion [RC] STAT Care 10/02/20 11:14 Active Height and Weight [RC] DAILY Care 10/02/20 14:08 Ordered Intake and Output [RC] QSHIFT Care 10/02/20 14:10 Ordered Oxygen Therapy [RC] PRN Care 10/02/20 14:08 Ordered VTE/DVT Education [RC] PER UNIT ROUTINE Care 10/02/20 14:08 Ordered Vital Signs [RC] CONTINUOUS Care 10/02/20 14:08 Ordered Consult to Case Management/Air Compressor Mechanic [CONS] Cons 10/02/20 14:08 Ordered Routine Consult to Spiritual Care [CONS] Routine Cons 10/02/20 14:08 Ordered Respiratory Care Assess and Treatment [CONS] Routine Cons 10/02/20 14:08 Ordered Clear Liquid Diet [DIET] Diet 10/02/20 Dinner Ordered CBC WITH AUTO DIFF [HEME] AM Lab 10/03/20 05:11 Ordered CKMB [CHEM] AM Lab 10/03/20 05:11 Ordered COMPREHENSIVE METABOLIC PN,CMP [CHEM] AM Lab 10/03/20 05:11 Ordered Guaiac [OCCULT BLOOD DIAGNOSTIC] [OP] Stat Lab 10/02/20 11:23 Ordered MAGNESIUM [CHEM] AM Lab 10/03/20 05:11 Ordered PACKED CELLS [RED BLOOD CELLS LP] [BBK] Stat Lab 10/02/20 10:16 Results TROPONIN I [CHEM] AM Lab 10/03/20 05:11 Ordered TYPE AND SCREEN [BBK] Stat Lab 10/02/20 10:16 Results URINALYSIS W/MICROSCOPIC [UA W/MICROSCOPIC] [URIN] Stat Lab 10/02/20 11:14 Ordered Acetaminophen [TylenoL] Med 10/02/20 14:08 Ordered 650 mg PO Q4H PRN Docusate Sodium [Colace] Med 10/02/20 14:08 Ordered 100 mg PO BID PRN Sodium Chloride 0.9% [Normal Saline] 1,000 ml Med 10/02/20 12:30 Active IV ASDIRECTED oxyCODONE Med 10/02/20 14:08 Ordered 5 mg PO Q4H PRN Sequential Compression Device [OM.PC] Per Unit Routine Oth 10/02/20 14:10 Ordered Transfuse PRBC [Transfuse Red Blood Cells] [COMM] Oth 10/02/20 13:43 Ordered Urgent VTE Pharmacological Contraindications [AST] Per Unit Oth 10/02/20 14:08 Ordered Routine Resuscitation Status Routine Resus Stat 10/02/20 14:08 Ordered Medication Orders Acetaminophen (Acetaminophen 325 Mg Tab) 650 mg PO Q4H PRN PRN Reason: Pain (Mild 1-3)/fever Docusate Sodium (Docusate Sodium 100 Mg Cap) 100 mg PO BID PRN PRN Reason: Constipation Sodium Chloride (Normal Saline) 1,000 mls @ 75 mls/hr IV ASDIRECTED MARGOT Last Admin: 10/02/20 12:48 Dose: 75 mls/hr Documented by: ISMAEL Oxycodone HCl (Oxycodone 5 Mg Tab) 5 mg PO Q4H PRN PRN Reason: Pain (moderate 4-6) Assessment/Plan Comment:: Again 89-year-old male who presents to the emergency department with complaints of weakness, fatigue, and dyspnea on exertion. States that over the past couple of weeks he has noted black stools. Was recently seen by his offal separator and bar assistant in the last couple of weeks and was told he was doing well and no medication changes were made at that time. Presenting to the emergency department today. Hemoglobin resulted at 6.2. Denied any chest pain associated with his symptoms however labs reveal a troponin of 9.624 and a CK-MB of 90.4. EKG did not show any elevation. proBNP is 5104. Patient was typed and crossmatched for 3 units of blood however his prognosis is poor. He has a history of congestive heart failure and has an elevated proBNP with crackles noted bilaterally. Lasix at this time is contraindicated due to systolic blood pressures in the 70s and 80s. Cardiology was consulted however they state at this time patient is not a candidate for an angiogram due to the instability of his current situation. He will be admitted to intensive care unit. Orders to transfuse 3 units of blood, will evaluate his vital signs and status after first unit is in to see if he could tolerate receiving Lasix at that time. The patient's son who is at the bedside with him has been very thoroughly informed of the patient's critical status at this time and that the next 48 hours could be critical the patient is likely going into cardiogenic shock. The patient's son does verbalize understanding of this and states he will call family and update them as well. PLAN: CHF, Congestive heart failure; Renal insufficiency; Hypotension; Anemia; Elevat ed troponin I measurement * Transfused 3 units of PRBCs over 4 hours each unit * Monitor vital signs * Lasix if systolic blood pressure will tolerate * Strict I&O * Daily weight * Clear liquid diet * Repeat labs in the a.m. * Respiratory therapy to titrate oxygen to keep saturations greater than 92% * Discontinue meloxicam * Bedrest * SCDs as Lovenox is contraindicated at this time * Pastoral care for family support * Protonix IV every 24 hours Primary Care Provider: Dr. Coyle DVT prophylaxix: SCD's, lovenox is contraindicated at this time due to anemia and positive occult stools Code Status: DNR/DNI Discharge Planning: student services director and case management for discharge planning. Patient's condition is guarded at this time. He will likely be here for at least 4 to 5 days. - Mortality Measure Prognosis:: Poor <Stiven Urbano - Last Filed: 04/16/21 15:59> H&P History of Present Illness - General Admit Problem/Dx: Admission Diagnosis/Problem Admission Diagnosis/Problem Anemia Exam - Vital Signs Vital Signs: Last Vital Signs Temp 36.0 C L 10/02/20 15:39 Pulse 92 10/02/20 15:39 Resp 20 10/02/20 15:39 BP 97/60 10/02/20 15:39 Pulse Ox 94 L 10/02/20 15:39 - Patient Data Lab Results Last 24 hrs: Laboratory Results - last 24 hr 10/02/20 10/02/20 10/02/20 Range/Units 10:16 10:16 10:16 WBC 11.47 H (4.23-9.07) K/mm3 RBC 2.00 L (4.63-6.08) M/mm3 Hgb 6.2 L* D (13.7-17.5) gm/dl Hct 21.3 L (40.1-51.0) % MCV 106.5 H D (79.0-92.2) fl MCH 31.0 (25.7-32.2) pg MCHC 29.1 L (32.2-35.5) g/dl RDW Std Deviation 57.5 H (35.1-43.9) fL Plt Count 154 L (163-337) K/mm3 MPV 11.3 (9.4-12.3) fl Neut % (Auto) 75.7 H (34.0-67.9) % Lymph % (Auto) 14.6 L (21.8-53.1) % [place] % (Auto) 8.8 (5.3-12.2) % Eos % (Auto) 0.4 L (0.8-7.0) Baso % (Auto) 0.1 (0.1-1.2) % Neut # (Auto) 8.68 H (1.78-5.38) K/mm3 Lymph # (Auto) 1.67 (1.32-3.57) K/mm3 [place] # (Auto) 1.01 H (0.30-0.82) K/mm3 Eos # (Auto) 0.05 (0.04-0.54) K/mm3 Baso # (Auto) 0.01 (0.01-0.08) K/mm3 Manual Slide Review Abnormal smear ESR (0-15) mm/hr Percent Retic (0.51-1.81) % PT 10.6 (9.7-12.0) SECONDS INR 0.99 APTT 22.7 (21.7-31.4) SECONDS Sodium 142 (136-145) mEq/L Potassium 5.4 H (3.5-5.1) mEq/L Chloride 107 (98-107) mEq/L Carbon Dioxide 27 (21-32) mEq/L Anion Gap 13.4 (5-15) BUN 43 H (7-18) mg/dL Creatinine 1.7 H (0.7-1.3) mg/dL Est Cr Clr Drug Dosing 31.38 mL/min Estimated GFR (MDRD) 38 (>60) mL/min BUN/Creatinine Ratio 25.3 H (14-18) Glucose 120 H (83-115) mg/dL Hemoglobin A1c ( - 5.6) % Calcium 8.3 L (8.5-10.1) mg/dL Magnesium (1.8-2.4) mg/dl Iron (65-175) ug/dL TIBC (100-400) ug/dL % Saturation (20-55) % Transferrin (202-364) mg/dL Total Bilirubin 0.3 (0.2-1.0) mg/dL AST 68 H (15-37) U/L ALT 30 (16-63) U/L Alkaline Phosphatase 115 (46-116) U/L CK-MB (CK-2) (0-3.6) ng/ml Troponin I (0.00-0.056) ng/mL C-Reactive Protein (<1.0) mg/dL NT-Pro-B Natriuret Pep (0-450) pg/mL Total Protein 6.8 (6.4-8.2) g/dl Albumin 3.2 L (3.4-5.0) g/dl Globulin 3.6 gm/dL Albumin/Globulin Ratio 0.9 L (1-2) TSH 3rd Generation (0.358-3.74) uIU/mL Urine Color (Yellow) Urine Appearance (Clear) Urine pH (5.0-8.0) Ur Specific [place] (1.005-1.030) Urine Protein (Negative) Urine Glucose (UA) (Negative) Urine Ketones (Negative) Urine Occult Blood (Negative) Urine Nitrite (Negative) Urine Bilirubin (Negative) Urine Urobilinogen (0.2-1.0) Ur Leukocyte Esterase (Negative) Urine RBC (0-5) /hpf Urine WBC (0-5) /hpf Ur Epithelial Cells (0-5) /hpf Urine Bacteria (FEW) /hpf Urine Mucus (FEW) /hpf SARS-CoV-2 RNA (TOÑA) (NEGATIVE) Blood Type Gel Antibody Screen Crossmatch 10/02/20 10/02/20 10/02/20 Range/Units 10:16 10:16 10:16 WBC (4.23-9.07) K/mm3 RBC (4.63-6.08) M/mm3 Hgb (13.7-17.5) gm/dl Hct (40.1-51.0) % MCV (79.0-92.2) fl MCH (25.7-32.2) pg MCHC (32.2-35.5) g/dl RDW Std Deviation (35.1-43.9) fL Plt Count (163-337) K/mm3 MPV (9.4-12.3) fl Neut % (Auto) (34.0-67.9) % Lymph % (Auto) (21.8-53.1) % [place] % (Auto) (5.3-12.2) % Eos % (Auto) (0.8-7.0) Baso % (Auto) (0.1-1.2) % Neut # (Auto) (1.78-5.38) K/mm3 Lymph # (Auto) (1.32-3.57) K/mm3 [place] # (Auto) (0.30-0.82) K/mm3 Eos # (Auto) (0.04-0.54) K/mm3 Baso # (Auto) (0.01-0.08) K/mm3 Manual Slide Review ESR 60 H (0-15) mm/hr Percent Retic (0.51-1.81) % PT (9.7-12.0) SECONDS INR APTT (21.7-31.4) SECONDS Sodium (136-145) mEq/L Potassium (3.5-5.1) mEq/L Chloride (98-107) mEq/L Carbon Dioxide (21-32) mEq/L Anion Gap (5-15) BUN (7-18) mg/dL Creatinine (0.7-1.3) mg/dL Est Cr Clr Drug Dosing mL/min Estimated GFR (MDRD) (>60) mL/min BUN/Creatinine Ratio (14-18) Glucose (83-115) mg/dL Hemoglobin A1c ( - 5.6) % Calcium (8.5-10.1) mg/dL Magnesium 2.5 H (1.8-2.4) mg/dl Iron (65-175) ug/dL TIBC (100-400) ug/dL % Saturation (20-55) % Transferrin (202-364) mg/dL Total Bilirubin (0.2-1.0) mg/dL AST (15-37) U/L ALT (16-63) U/L Alkaline Phosphatase (46-116) U/L CK-MB (CK-2) 90.4 H (0-3.6) ng/ml Troponin I 9.624 H* (0.00-0.056) ng/mL C-Reactive Protein 0.9 (<1.0) mg/dL NT-Pro-B Natriuret Pep 5104 H (0-450) pg/mL Total Protein (6.4-8.2) g/dl Albumin (3.4-5.0) g/dl Globulin gm/dL Albumin/Globulin Ratio (1-2) TSH 3rd Generation (0.358-3.74) uIU/mL Urine Color (Yellow) Urine Appearance (Clear) Urine pH (5.0-8.0) Ur Specific [place] (1.005-1.030) Urine Protein (Negative) Urine Glucose (UA) (Negative) Urine Ketones (Negative) Urine Occult Blood (Negative) Urine Nitrite (Negative) Urine Bilirubin (Negative) Urine Urobilinogen (0.2-1.0) Ur Leukocyte Esterase (Negative) Urine RBC (0-5) /hpf Urine WBC (0-5) /hpf Ur Epithelial Cells (0-5) /hpf Urine Bacteria (FEW) /hpf Urine Mucus (FEW) /hpf SARS-CoV-2 RNA (TOÑA) (NEGATIVE) Blood Type Gel Antibody Screen Crossmatch 10/02/20 10/02/20 10/02/20 Range/Units 10:16 10:16 10:16 WBC (4.23-9.07) K/mm3 RBC (4.63-6.08) M/mm3 Hgb (13.7-17.5) gm/dl Hct (40.1-51.0) % MCV (79.0-92.2) fl MCH (25.7-32.2) pg MCHC (32.2-35.5) g/dl RDW Std Deviation (35.1-43.9) fL Plt Count (163-337) K/mm3 MPV (9.4-12.3) fl Neut % (Auto) (34.0-67.9) % Lymph % (Auto) (21.8-53.1) % [place] % (Auto) (5.3-12.2) % Eos % (Auto) (0.8-7.0) Baso % (Auto) (0.1-1.2) % Neut # (Auto) (1.78-5.38) K/mm3 Lymph # (Auto) (1.32-3.57) K/mm3 [place] # (Auto) (0.30-0.82) K/mm3 Eos # (Auto) (0.04-0.54) K/mm3 Baso # (Auto) (0.01-0.08) K/mm3 Manual Slide Review ESR (0-15) mm/hr Percent Retic (0.51-1.81) % PT (9.7-12.0) SECONDS INR APTT (21.7-31.4) SECONDS Sodium (136-145) mEq/L Potassium (3.5-5.1) mEq/L Chloride (98-107) mEq/L Carbon Dioxide (21-32) mEq/L Anion Gap (5-15) BUN (7-18) mg/dL Creatinine (0.7-1.3) mg/dL Est Cr Clr Drug Dosing mL/min Estimated GFR (MDRD) (>60) mL/min BUN/Creatinine Ratio (14-18) Glucose (83-115) mg/dL Hemoglobin A1c ( - 5.6) % Calcium (8.5-10.1) mg/dL Magnesium (1.8-2.4) mg/dl Iron 39 L (65-175) ug/dL TIBC 371 (100-400) ug/dL % Saturation 11 L (20-55) % Transferrin 297 (202-364) mg/dL Total Bilirubin (0.2-1.0) mg/dL AST (15-37) U/L ALT (16-63) U/L Alkaline Phosphatase (46-116) U/L CK-MB (CK-2) (0-3.6) ng/ml Troponin I (0.00-0.056) ng/mL C-Reactive Protein (<1.0) mg/dL NT-Pro-B Natriuret Pep (0-450) pg/mL Total Protein (6.4-8.2) g/dl Albumin (3.4-5.0) g/dl Globulin gm/dL Albumin/Globulin Ratio (1-2) TSH 3rd Generation 2.337 (0.358-3.74) uIU/mL Urine Color (Yellow) Urine Appearance (Clear) Urine pH (5.0-8.0) Ur Specific [place] (1.005-1.030) Urine Protein (Negative) Urine Glucose (UA) (Negative) Urine Ketones (Negative) Urine Occult Blood (Negative) Urine Nitrite (Negative) Urine Bilirubin (Negative) Urine Urobilinogen (0.2-1.0) Ur Leukocyte Esterase (Negative) Urine RBC (0-5) /hpf Urine WBC (0-5) /hpf Ur Epithelial Cells (0-5) /hpf Urine Bacteria (FEW) /hpf Urine Mucus (FEW) /hpf SARS-CoV-2 RNA (TOÑA) (NEGATIVE) Blood Type A POSITIVE Gel Antibody Screen Negative Crossmatch See Detail 10/02/20 10/02/20 10/02/20 Range/Units 11:20 11:20 11:34 WBC (4.23-9.07) K/mm3 RBC (4.63-6.08) M/mm3 Hgb (13.7-17.5) gm/dl Hct (40.1-51.0) % MCV (79.0-92.2) fl MCH (25.7-32.2) pg MCHC (32.2-35.5) g/dl RDW Std Deviation (35.1-43.9) fL Plt Count (163-337) K/mm3 MPV (9.4-12.3) fl Neut % (Auto) (34.0-67.9) % Lymph % (Auto) (21.8-53.1) % [place] % (Auto) (5.3-12.2) % Eos % (Auto) (0.8-7.0) Baso % (Auto) (0.1-1.2) % Neut # (Auto) (1.78-5.38) K/mm3 Lymph # (Auto) (1.32-3.57) K/mm3 [place] # (Auto) (0.30-0.82) K/mm3 Eos # (Auto) (0.04-0.54) K/mm3 Baso # (Auto) (0.01-0.08) K/mm3 Manual Slide Review ESR (0-15) mm/hr Percent Retic 5.14 H (0.51-1.81) % PT (9.7-12.0) SECONDS INR APTT (21.7-31.4) SECONDS Sodium (136-145) mEq/L Potassium (3.5-5.1) mEq/L Chloride (98-107) mEq/L Carbon Dioxide (21-32) mEq/L Anion Gap (5-15) BUN (7-18) mg/dL Creatinine (0.7-1.3) mg/dL Est Cr Clr Drug Dosing mL/min Estimated GFR (MDRD) (>60) mL/min BUN/Creatinine Ratio (14-18) Glucose (83-115) mg/dL Hemoglobin A1c 5.6 ( - 5.6) % Calcium (8.5-10.1) mg/dL Magnesium (1.8-2.4) mg/dl Iron (65-175) ug/dL TIBC (100-400) ug/dL % Saturation (20-55) % Transferrin (202-364) mg/dL Total Bilirubin (0.2-1.0) mg/dL AST (15-37) U/L ALT (16-63) U/L Alkaline Phosphatase (46-116) U/L CK-MB (CK-2) (0-3.6) ng/ml Troponin I (0.00-0.056) ng/mL C-Reactive Protein (<1.0) mg/dL NT-Pro-B Natriuret Pep (0-450) pg/mL Total Protein (6.4-8.2) g/dl Albumin (3.4-5.0) g/dl Globulin gm/dL Albumin/Globulin Ratio (1-2) TSH 3rd Generation (0.358-3.74) uIU/mL Urine Color (Yellow) Urine Appearance (Clear) Urine pH (5.0-8.0) Ur Specific [place] (1.005-1.030) Urine Protein (Negative) Urine Glucose (UA) (Negative) Urine Ketones (Negative) Urine Occult Blood (Negative) Urine Nitrite (Negative) Urine Bilirubin (Negative) Urine Urobilinogen (0.2-1.0) Ur Leukocyte Esterase (Negative) Urine RBC (0-5) /hpf Urine WBC (0-5) /hpf Ur Epithelial Cells (0-5) /hpf Urine Bacteria (FEW) /hpf Urine Mucus (FEW) /hpf SARS-CoV-2 RNA (TOÑA) Negative (NEGATIVE) Blood Type Gel Antibody Screen Crossmatch 10/02/20 Range/Units 14:10 WBC (4.23-9.07) K/mm3 RBC (4.63-6.08) M/mm3 Hgb (13.7-17.5) gm/dl Hct (40.1-51.0) % MCV (79.0-92.2) fl MCH (25.7-32.2) pg MCHC (32.2-35.5) g/dl RDW Std Deviation (35.1-43.9) fL Plt Count (163-337) K/mm3 MPV (9.4-12.3) fl Neut % (Auto) (34.0-67.9) % Lymph % (Auto) (21.8-53.1) % [place] % (Auto) (5.3-12.2) % Eos % (Auto) (0.8-7.0) Baso % (Auto) (0.1-1.2) % Neut # (Auto) (1.78-5.38) K/mm3 Lymph # (Auto) (1.32-3.57) K/mm3 [place] # (Auto) (0.30-0.82) K/mm3 Eos # (Auto) (0.04-0.54) K/mm3 Baso # (Auto) (0.01-0.08) K/mm3 Manual Slide Review ESR (0-15) mm/hr Percent Retic (0.51-1.81) % PT (9.7-12.0) SECONDS INR APTT (21.7-31.4) SECONDS Sodium (136-145) mEq/L Potassium (3.5-5.1) mEq/L Chloride (98-107) mEq/L Carbon Dioxide (21-32) mEq/L Anion Gap (5-15) BUN (7-18) mg/dL Creatinine (0.7-1.3) mg/dL Est Cr Clr Drug Dosing mL/min Estimated GFR (MDRD) (>60) mL/min BUN/Creatinine Ratio (14-18) Glucose (83-115) mg/dL Hemoglobin A1c ( - 5.6) % Calcium (8.5-10.1) mg/dL Magnesium (1.8-2.4) mg/dl Iron (65-175) ug/dL TIBC (100-400) ug/dL % Saturation (20-55) % Transferrin (202-364) mg/dL Total Bilirubin (0.2-1.0) mg/dL AST (15-37) U/L ALT (16-63) U/L Alkaline Phosphatase (46-116) U/L CK-MB (CK-2) (0-3.6) ng/ml Troponin I (0.00-0.056) ng/mL C-Reactive Protein (<1.0) mg/dL NT-Pro-B Natriuret Pep (0-450) pg/mL Total Protein (6.4-8.2) g/dl Albumin (3.4-5.0) g/dl Globulin gm/dL Albumin/Globulin Ratio (1-2) TSH 3rd Generation (0.358-3.74) uIU/mL Urine Color Yellow (Yellow) Urine Appearance Clear (Clear) Urine pH 5.5 (5.0-8.0) Ur Specific [place] 1.025 (1.005-1.030) Urine Protein Negative (Negative) Urine Glucose (UA) Negative (Negative) Urine Ketones Negative (Negative) Urine Occult Blood Negative (Negative) Urine Nitrite Negative (Negative) Urine Bilirubin Negative (Negative) Urine Urobilinogen 0.2 (0.2-1.0) Ur Leukocyte Esterase 1+ H (Negative) Urine RBC 5-10 H (0-5) /hpf Urine WBC 10-20 H (0-5) /hpf Ur Epithelial Cells 0-5 (0-5) /hpf Urine Bacteria Moderate H (FEW) /hpf Urine Mucus Not seen (FEW) /hpf SARS-CoV-2 RNA (TOÑA) (NEGATIVE) Blood Type Gel Antibody Screen Crossmatch Result Diagrams: 10/02/20 10:16 10/02/20 10:16 Sepsis Event Note - Focused Exam Vital Signs: Vital Signs Temp Temp Pulse Resp BP Pulse Ox 10/02/20 15:39 36.0 C L 92 20 97/60 94 L 10/02/20 15:10 25 H 96/61 99 10/02/20 12:49 35.9 C L 79 27 H 93/56 L 10/02/20 12:45 35.9 C L 76 24 H 90/53 L 10/02/20 12:39 35.9 C L 79 26 H 94/49 L 10/02/20 12:34 35.8 C L 79 16 91/55 L 10/02/20 10:02 36.4 C 76 18 85/65 L 100 Orders Last 24hrs: Active Orders 24 hr Category Date Time Status Admission Status [Patient Status] [ADT] Routine ADT 10/02/20 13:57 Active Patient Status [ADT] Routine ADT 10/02/20 14:08 Active Activity as Tolerated [RC] .Routine Care 10/02/20 14:34 Active Antiembolic Devices [RC] Care 10/02/20 14:11 Active Bladder Scan [RC] ASDIRECTED Care 10/02/20 11:15 Active Cardiac Monitoring [RC] CONTINUOUS Care 10/02/20 14:10 Active Height and Weight [RC] 0400 Care 10/02/20 14:08 Active Intake and Output [RC] Care 10/02/20 14:10 Active Oxygen Therapy [RC] PRN Care 10/02/20 14:08 Active VTE/DVT Education [RC] Care 10/02/20 14:08 Active Vital Signs [RC] CONTINUOUS Care 10/02/20 14:08 Active Consult to Case Management/Air Compressor Mechanic [CONS] Cons 10/02/20 14:08 Active Routine Consult to Spiritual Care [CONS] Routine Cons 10/02/20 14:08 Active Respiratory Care Assess and Treatment [CONS] Routine Cons 10/02/20 14:08 Active Clear Liquid Diet [DIET] Diet 10/02/20 Dinner Active CBC WITH AUTO DIFF [HEME] AM Lab 10/03/20 05:11 Ordered CKMB [CHEM] AM Lab 10/03/20 05:11 Ordered COMPREHENSIVE METABOLIC PN,CMP [CHEM] AM Lab 10/03/20 05:11 Ordered Guaiac [OCCULT BLOOD DIAGNOSTIC] [OP] Stat Lab 10/02/20 11:23 Ordered MAGNESIUM [CHEM] AM Lab 10/03/20 05:11 Ordered PACKED CELLS [RED BLOOD CELLS LP] [BBK] Stat Lab 10/02/20 10:16 Results TROPONIN I [CHEM] AM Lab 10/03/20 05:11 Ordered TYPE AND SCREEN [BBK] Stat Lab 10/02/20 10:16 Results Acetaminophen [TylenoL] Med 10/02/20 14:08 Active 650 mg PO Q4H PRN Docusate Sodium [Colace] Med 10/02/20 14:08 Active 100 mg PO BID PRN Metoclopramide [Reglan] Med 10/02/20 14:35 Active 5 mg IVPUSH Q4H PRN Pantoprazole [ProTONIX IV] Med 10/02/20 15:15 Active 40 mg IVPUSH DAILY Sodium Chloride 0.9% [Normal Saline] 1,000 ml Med 10/02/20 12:30 Active IV ASDIRECTED Sodium Chloride 0.9% [Normal Saline] 250 ml Med 10/02/20 15:45 Active IV ASDIRECTED oxyCODONE Med 10/02/20 14:08 Active 5 mg PO Q4H PRN Sequential Compression Device [OM.PC] Per Unit Routine Oth 10/02/20 14:10 Ordered Transfuse PRBC [Transfuse Red Blood Cells] [COMM] Oth 10/02/20 13:43 Ordered Urgent VTE Pharmacological Contraindications [AST] Per Unit Oth 10/02/20 14:08 Ordered Routine Resuscitation Status Routine Resus Stat 10/02/20 14:08 Ordered Medication Orders Acetaminophen (Acetaminophen 325 Mg Tab) 650 mg PO Q4H PRN PRN Reason: Pain (Mild 1-3)/fever Docusate Sodium (Docusate Sodium 100 Mg Cap) 100 mg PO BID PRN PRN Reason: Constipation Sodium Chloride (Normal Saline) 1,000 mls @ 75 mls/hr IV ASDIRECTED MARGOT Last Admin: 10/02/20 12:48 Dose: 75 mls/hr Documented by: ISMAEL Sodium Chloride (Normal Saline) 250 mls @ 250 mls/hr IV ASDIRECTED [facility] Last Admin: 10/02/20 15:51 Dose: 250 mls/hr Documented by: JUDE Metoclopramide HCl (Metoclopramide 10 Mg/2 Ml Sdv) 5 mg IVPUSH Q4H PRN PRN Reason: Nausea/Vomiting Oxycodone HCl (Oxycodone 5 Mg Tab) 5 mg PO Q4H PRN PRN Reason: Pain (moderate 4-6) Pantoprazole Sodium (Pantoprazole 40 Mg Vial) 40 mg IVPUSH DAILY [facility] Last Admin: 10/02/20 15:56 Dose: 40 mg Documented by: JUDE Assessment/Plan Comment:: I have seen and evaluated the patient independently of JADIEL Madden, and have reviewed and agree with the orders and plan of care as outlined by her. I have discussed the case with her. I have discussed the poor prognosis of the patient with his son. I had a long discussion with regards to comfort measures. I also suggested that family members come in. Patient's son says that he is going to talk to other family members before transitioning to comfort care measures only. Please see orders.
[2020-10-02] MEDS ORDERED: Metoclopramide 10 MG/2 ML SDV IVPUSH PRN (14:35)
[2020-10-02] MEDS ORDERED: diphenhydrAMINE 50 MG/ML SDV ONE (14:51)
[2020-10-02] MEDS ORDERED: diphenhydrAMINE 50 MG/ML SDV IVPUSH ONE (14:52)
[2020-10-02] MEDS ORDERED: Sodium Chloride 0.9% 250 ML IV SCH ×2 (15:45→19:00)
[2020-10-02] MEDS ORDERED: Sodium Chloride 0.9% 250 ML ONE (15:45)
[2020-10-02] MEDS: Pantoprazole 40 MG Vial IVPUSH SCH (15:56)
[2020-10-02] MEDS: LORazepam 2 MG/ML SDV IVPUSH PRN (19:48)
[2020-10-03] MEDS: diphenhydrAMINE 50 MG/ML SDV IVPUSH PRN ×2 (02:18→22:22)
[2020-10-03] MEDS: LORazepam 2 MG/ML SDV IVPUSH PRN ×2 (04:45→23:51)
[2020-10-03] MEDS ORDERED: Furosemide 20 MG/2 ML VIAL IVPUSH ONE (08:10)
[2020-10-03] MEDS: Pantoprazole 40 MG Vial IVPUSH SCH (08:19)
--- NOTE | 2020-10-03 08:36 | CR ---
Chest: Portable view of the chest was obtained. Comparison: Prior chest x-ray 10/02/20 and 08/13/18. Heart is enlarged. Diffuse increased lung markings are seen which are more prominent than seen on prior studies. Stable scarring is noted within the left lung base. Prior sternotomy is seen. Bony structures show nothing acute. Impression: 1. Findings which most likely represent increasing CHF. 2. Other findings which are stable. Diagnostic code #3
[2020-10-03] MEDS ORDERED: OXYGEN NAS PRN (11:09)
[2020-10-03] MEDS ORDERED: Atropine 1% Ophth Soln 5 ML BOTTLE SL SCH (11:15)
[2020-10-03] MEDS: Atropine 1% Ophth Soln 5 ML BOTTLE SL PRN ×2 (11:32→16:34)
--- NOTE | 2020-10-03 11:40 | PCM.PN ---
- General Info Date of Service: 10/03/20 Admission Dx/Problem (Free Text): Admission Diagnosis/Problem Admission Diagnosis/Problem Anemia Subjective Update: 10/03/20 afebrile hypotension improved without ionotrops but pulm edema now worsening and family aware. rattly resp with crackles. mirna on rt / chest xray increased pulm edema . cor pvcs multifocal with activity a nd turning. soft almost inaudible heart tones but no s3/s4 abd not taking anything sec. to decreased sensorium. gurgly resp and given atropine . neuro obtunded and responds to name . m.s edema increased and no bruising that is severe. skin i.v sight clean assess 1)cardiogenic failure and family making comfort measures if he does not start to improve. 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 very limited options given age and condition and family aware . 3) anemia acute g.i bleed on meloxicam no anticoagulation and given one dose lovenox this a.m to try to stave off ami . 4)diabetes stable. plan. lasix this am and lovenox x one. if not able to stabilize b.p discussed ionotropic drips but family thinking comfort care if his outlook is poor ( it is ) supportive care for all other aspects but hold p.o meds and support with i.v meds . boh Functional Status: Reports: Pain Controlled - Review of Systems General: Reports: Weakness Pulmonary: Reports: Shortness of Breath, Wheezing, Other. Denies: Cough Cardiovascular: Reports: Edema, Other (crackles thoughout ) Gastrointestinal: Reports: No Symptoms Genitourinary: Reports: No Symptoms Musculoskeletal: Reports: No Symptoms Skin: Reports: No Symptoms Neurological: Reports: No Symptoms Psychiatric: Reports: No Symptoms, Depression - Patient Data Vitals - Most Recent: Last Vital Signs Temp 36.1 C 10/03/20 08:00 Pulse 85 10/03/20 08:00 Resp 25 H 10/03/20 08:00 BP 105/54 L 10/03/20 08:00 Pulse Ox 99 10/03/20 09:00 Weight - Most Recent: 84.096 kg I&O - Last 24 Hours: Intake & Output 10/02/20 10/03/20 10/03/20 22:59 06:59 14:59 Intake Total 1570 100 Output Total 875 1050 650 Balance 345 -135 -650 Lab Results Last 24 Hours: Laboratory Results - last 24 hr 10/02/20 10/02/20 10/02/20 Range/Units 10:16 10:16 10:16 WBC (4.23-9.07) K/mm3 RBC (4.63-6.08) M/mm3 Hgb (13.7-17.5) gm/dl Hct (40.1-51.0) % MCV (79.0-92.2) fl MCH (25.7-32.2) pg MCHC (32.2-35.5) g/dl RDW Std Deviation (35.1-43.9) fL Plt Count (163-337) K/mm3 MPV (9.4-12.3) fl Neut % (Auto) (34.0-67.9) % Lymph % (Auto) (21.8-53.1) % [place] % (Auto) (5.3-12.2) % Eos % (Auto) (0.8-7.0) Baso % (Auto) (0.1-1.2) % Neut # (Auto) (1.78-5.38) K/mm3 Lymph # (Auto) (1.32-3.57) K/mm3 [place] # (Auto) (0.30-0.82) K/mm3 Eos # (Auto) (0.04-0.54) K/mm3 Baso # (Auto) (0.01-0.08) K/mm3 Manual Slide Review Abnormal smear ESR (0-15) mm/hr Percent Retic (0.51-1.81) % PT 10.6 (9.7-12.0) SECONDS INR 0.99 APTT 22.7 (21.7-31.4) SECONDS Sodium 142 (136-145) mEq/L Potassium 5.4 H (3.5-5.1) mEq/L Chloride 107 (98-107) mEq/L Carbon Dioxide 27 (21-32) mEq/L Anion Gap 13.4 (5-15) BUN 43 H (7-18) mg/dL Creatinine 1.7 H (0.7-1.3) mg/dL Est Cr Clr Drug Dosing 31.38 mL/min Estimated GFR (MDRD) 38 (>60) mL/min BUN/Creatinine Ratio 25.3 H (14-18) Glucose 120 H (83-115) mg/dL POC Glucose (70-99) mg/dL Hemoglobin A1c ( - 5.6) % Calcium 8.3 L (8.5-10.1) mg/dL Magnesium (1.8-2.4) mg/dl Iron (65-175) ug/dL TIBC (100-400) ug/dL % Saturation (20-55) % Transferrin (202-364) mg/dL Total Bilirubin 0.3 (0.2-1.0) mg/dL AST 68 H (15-37) U/L ALT 30 (16-63) U/L Alkaline Phosphatase 115 (46-116) U/L CK-MB (CK-2) (0-3.6) ng/ml Troponin I (0.00-0.056) ng/mL C-Reactive Protein (<1.0) mg/dL NT-Pro-B Natriuret Pep (0-450) pg/mL Total Protein 6.8 (6.4-8.2) g/dl Albumin 3.2 L (3.4-5.0) g/dl Globulin 3.6 gm/dL Albumin/Globulin Ratio 0.9 L (1-2) TSH 3rd Generation (0.358-3.74) uIU/mL Urine Color (Yellow) Urine Appearance (Clear) Urine pH (5.0-8.0) Ur Specific [place] (1.005-1.030) Urine Protein (Negative) Urine Glucose (UA) (Negative) Urine Ketones (Negative) Urine Occult Blood (Negative) Urine Nitrite (Negative) Urine Bilirubin (Negative) Urine Urobilinogen (0.2-1.0) Ur Leukocyte Esterase (Negative) Urine RBC (0-5) /hpf Urine WBC (0-5) /hpf Ur Epithelial Cells (0-5) /hpf Urine Bacteria (FEW) /hpf Urine Mucus (FEW) /hpf SARS-CoV-2 RNA (TOÑA) (NEGATIVE) MRSA (PCR) Blood Type Gel Antibody Screen Crossmatch 04/10/02/20 10/02/20 Range/Units 10:16 10:16 10:16 WBC (4.23-9.07) K/mm3 RBC (4.63-6.08) M/mm3 Hgb (13.7-17.5) gm/dl Hct (40.1-51.0) % MCV (79.0-92.2) fl MCH (25.7-32.2) pg MCHC (32.2-35.5) g/dl RDW Std Deviation (35.1-43.9) fL Plt Count (163-337) K/mm3 MPV (9.4-12.3) fl Neut % (Auto) (34.0-67.9) % Lymph % (Auto) (21.8-53.1) % [place] % (Auto) (5.3-12.2) % Eos % (Auto) (0.8-7.0) Baso % (Auto) (0.1-1.2) % Neut # (Auto) (1.78-5.38) K/mm3 Lymph # (Auto) (1.32-3.57) K/mm3 [place] # (Auto) (0.30-0.82) K/mm3 Eos # (Auto) (0.04-0.54) K/mm3 Baso # (Auto) (0.01-0.08) K/mm3 Manual Slide Review ESR 60 H (0-15) mm/hr Percent Retic (0.51-1.81) % PT (9.7-12.0) SECONDS INR APTT (21.7-31.4) SECONDS Sodium (136-145) mEq/L Potassium (3.5-5.1) mEq/L Chloride (98-107) mEq/L Carbon Dioxide (21-32) mEq/L Anion Gap (5-15) BUN (7-18) mg/dL Creatinine (0.7-1.3) mg/dL Est Cr Clr Drug Dosing mL/min Estimated GFR (MDRD) (>60) mL/min BUN/Creatinine Ratio (14-18) Glucose (83-115) mg/dL POC Glucose (70-99) mg/dL Hemoglobin A1c ( - 5.6) % Calcium (8.5-10.1) mg/dL Magnesium 2.5 H (1.8-2.4) mg/dl Iron (65-175) ug/dL TIBC (100-400) ug/dL % Saturation (20-55) % Transferrin (202-364) mg/dL Total Bilirubin (0.2-1.0) mg/dL AST (15-37) U/L ALT (16-63) U/L Alkaline Phosphatase (46-116) U/L CK-MB (CK-2) 90.4 H (0-3.6) ng/ml Troponin I 9.624 H* (0.00-0.056) ng/mL C-Reactive Protein 0.9 (<1.0) mg/dL NT-Pro-B Natriuret Pep 5104 H (0-450) pg/mL Total Protein (6.4-8.2) g/dl Albumin (3.4-5.0) g/dl Globulin gm/dL Albumin/Globulin Ratio (1-2) TSH 3rd Generation (0.358-3.74) uIU/mL Urine Color (Yellow) Urine Appearance (Clear) Urine pH (5.0-8.0) Ur Specific [place] (1.005-1.030) Urine Protein (Negative) Urine Glucose (UA) (Negative) Urine Ketones (Negative) Urine Occult Blood (Negative) Urine Nitrite (Negative) Urine Bilirubin (Negative) Urine Urobilinogen (0.2-1.0) Ur Leukocyte Esterase (Negative) Urine RBC (0-5) /hpf Urine WBC (0-5) /hpf Ur Epithelial Cells (0-5) /hpf Urine Bacteria (FEW) /hpf Urine Mucus (FEW) /hpf SARS-CoV-2 RNA (TOÑA) (NEGATIVE) MRSA (PCR) Blood Type Gel Antibody Screen Crossmatch 10/02/20 10/02/20 10/02/20 Range/Units 10:16 10:16 10:16 WBC (4.23-9.07) K/mm3 RBC (4.63-6.08) M/mm3 Hgb (13.7-17.5) gm/dl Hct (40.1-51.0) % MCV (79.0-92.2) fl MCH (25.7-32.2) pg MCHC (32.2-35.5) g/dl RDW Std Deviation (35.1-43.9) fL Plt Count (163-337) K/mm3 MPV (9.4-12.3) fl Neut % (Auto) (34.0-67.9) % Lymph % (Auto) (21.8-53.1) % [place] % (Auto) (5.3-12.2) % Eos % (Auto) (0.8-7.0) Baso % (Auto) (0.1-1.2) % Neut # (Auto) (1.78-5.38) K/mm3 Lymph # (Auto) (1.32-3.57) K/mm3 [place] # (Auto) (0.30-0.82) K/mm3 Eos # (Auto) (0.04-0.54) K/mm3 Baso # (Auto) (0.01-0.08) K/mm3 Manual Slide Review ESR (0-15) mm/hr Percent Retic (0.51-1.81) % PT (9.7-12.0) SECONDS INR APTT (21.7-31.4) SECONDS Sodium (136-145) mEq/L Potassium (3.5-5.1) mEq/L Chloride (98-107) mEq/L Carbon Dioxide (21-32) mEq/L Anion Gap (5-15) BUN (7-18) mg/dL Creatinine (0.7-1.3) mg/dL Est Cr Clr Drug Dosing mL/min Estimated GFR (MDRD) (>60) mL/min BUN/Creatinine Ratio (14-18) Glucose (83-115) mg/dL POC Glucose (70-99) mg/dL Hemoglobin A1c ( - 5.6) % Calcium (8.5-10.1) mg/dL Magnesium (1.8-2.4) mg/dl Iron 39 L (65-175) ug/dL TIBC 371 (100-400) ug/dL % Saturation 11 L (20-55) % Transferrin 297 (202-364) mg/dL Total Bilirubin (0.2-1.0) mg/dL AST (15-37) U/L ALT (16-63) U/L Alkaline Phosphatase (46-116) U/L CK-MB (CK-2) (0-3.6) ng/ml Troponin I (0.00-0.056) ng/mL C-Reactive Protein (<1.0) mg/dL NT-Pro-B Natriuret Pep (0-450) pg/mL Total Protein (6.4-8.2) g/dl Albumin (3.4-5.0) g/dl Globulin gm/dL Albumin/Globulin Ratio (1-2) TSH 3rd Generation 2.337 (0.358-3.74) uIU/mL Urine Color (Yellow) Urine Appearance (Clear) Urine pH (5.0-8.0) Ur Specific [place] (1.005-1.030) Urine Protein (Negative) Urine Glucose (UA) (Negative) Urine Ketones (Negative) Urine Occult Blood (Negative) Urine Nitrite (Negative) Urine Bilirubin (Negative) Urine Urobilinogen (0.2-1.0) Ur Leukocyte Esterase (Negative) Urine RBC (0-5) /hpf Urine WBC (0-5) /hpf Ur Epithelial Cells (0-5) /hpf Urine Bacteria (FEW) /hpf Urine Mucus (FEW) /hpf SARS-CoV-2 RNA (TOÑA) (NEGATIVE) MRSA (PCR) Blood Type A POSITIVE Gel Antibody Screen Negative Crossmatch See Detail 10/02/20 10/02/20 10/02/20 Range/Units 11:20 11:20 11:34 WBC (4.23-9.07) K/mm3 RBC (4.63-6.08) M/mm3 Hgb (13.7-17.5) gm/dl Hct (40.1-51.0) % MCV (79.0-92.2) fl MCH (25.7-32.2) pg MCHC (32.2-35.5) g/dl RDW Std Deviation (35.1-43.9) fL Plt Count (163-337) K/mm3 MPV (9.4-12.3) fl Neut % (Auto) (34.0-67.9) % Lymph % (Auto) (21.8-53.1) % [place] % (Auto) (5.3-12.2) % Eos % (Auto) (0.8-7.0) Baso % (Auto) (0.1-1.2) % Neut # (Auto) (1.78-5.38) K/mm3 Lymph # (Auto) (1.32-3.57) K/mm3 [place] # (Auto) (0.30-0.82) K/mm3 Eos # (Auto) (0.04-0.54) K/mm3 Baso # (Auto) (0.01-0.08) K/mm3 Manual Slide Review ESR (0-15) mm/hr Percent Retic 5.14 H (0.51-1.81) % PT (9.7-12.0) SECONDS INR APTT (21.7-31.4) SECONDS Sodium (136-145) mEq/L Potassium (3.5-5.1) mEq/L Chloride (98-107) mEq/L Carbon Dioxide (21-32) mEq/L Anion Gap (5-15) BUN (7-18) mg/dL Creatinine (0.7-1.3) mg/dL Est Cr Clr Drug Dosing mL/min Estimated GFR (MDRD) (>60) mL/min BUN/Creatinine Ratio (14-18) Glucose (83-115) mg/dL POC Glucose (70-99) mg/dL Hemoglobin A1c 5.6 ( - 5.6) % Calcium (8.5-10.1) mg/dL Magnesium (1.8-2.4) mg/dl Iron (65-175) ug/dL TIBC (100-400) ug/dL % Saturation (20-55) % Transferrin (202-364) mg/dL Total Bilirubin (0.2-1.0) mg/dL AST (15-37) U/L ALT (16-63) U/L Alkaline Phosphatase (46-116) U/L CK-MB (CK-2) (0-3.6) ng/ml Troponin I (0.00-0.056) ng/mL C-Reactive Protein (<1.0) mg/dL NT-Pro-B Natriuret Pep (0-450) pg/mL Total Protein (6.4-8.2) g/dl Albumin (3.4-5.0) g/dl Globulin gm/dL Albumin/Globulin Ratio (1-2) TSH 3rd Generation (0.358-3.74) uIU/mL Urine Color (Yellow) Urine Appearance (Clear) Urine pH (5.0-8.0) Ur Specific [place] (1.005-1.030) Urine Protein (Negative) Urine Glucose (UA) (Negative) Urine Ketones (Negative) Urine Occult Blood (Negative) Urine Nitrite (Negative) Urine Bilirubin (Negative) Urine Urobilinogen (0.2-1.0) Ur Leukocyte Esterase (Negative) Urine RBC (0-5) /hpf Urine WBC (0-5) /hpf Ur Epithelial Cells (0-5) /hpf Urine Bacteria (FEW) /hpf Urine Mucus (FEW) /hpf SARS-CoV-2 RNA (TOÑA) Negative (NEGATIVE) MRSA (PCR) Blood Type Gel Antibody Screen Crossmatch 10/02/20 10/02/20 10/02/20 Range/Units 14:10 17:38 17:54 WBC (4.23-9.07) K/mm3 RBC (4.63-6.08) M/mm3 Hgb (13.7-17.5) gm/dl Hct (40.1-51.0) % MCV (79.0-92.2) fl MCH (25.7-32.2) pg MCHC (32.2-35.5) g/dl RDW Std Deviation (35.1-43.9) fL Plt Count (163-337) K/mm3 MPV (9.4-12.3) fl Neut % (Auto) (34.0-67.9) % Lymph % (Auto) (21.8-53.1) % [place] % (Auto) (5.3-12.2) % Eos % (Auto) (0.8-7.0) Baso % (Auto) (0.1-1.2) % Neut # (Auto) (1.78-5.38) K/mm3 Lymph # (Auto) (1.32-3.57) K/mm3 [place] # (Auto) (0.30-0.82) K/mm3 Eos # (Auto) (0.04-0.54) K/mm3 Baso # (Auto) (0.01-0.08) K/mm3 Manual Slide Review ESR (0-15) mm/hr Percent Retic (0.51-1.81) % PT (9.7-12.0) SECONDS INR APTT (21.7-31.4) SECONDS Sodium (136-145) mEq/L Potassium (3.5-5.1) mEq/L Chloride (98-107) mEq/L Carbon Dioxide (21-32) mEq/L Anion Gap (5-15) BUN (7-18) mg/dL Creatinine (0.7-1.3) mg/dL Est Cr Clr Drug Dosing mL/min Estimated GFR (MDRD) (>60) mL/min BUN/Creatinine Ratio (14-18) Glucose (83-115) mg/dL POC Glucose 90 (70-99) mg/dL Hemoglobin A1c ( - 5.6) % Calcium (8.5-10.1) mg/dL Magnesium (1.8-2.4) mg/dl Iron (65-175) ug/dL TIBC (100-400) ug/dL % Saturation (20-55) % Transferrin (202-364) mg/dL Total Bilirubin (0.2-1.0) mg/dL AST (15-37) U/L ALT (16-63) U/L Alkaline Phosphatase (46-116) U/L CK-MB (CK-2) (0-3.6) ng/ml Troponin I (0.00-0.056) ng/mL C-Reactive Protein (<1.0) mg/dL NT-Pro-B Natriuret Pep (0-450) pg/mL Total Protein (6.4-8.2) g/dl Albumin (3.4-5.0) g/dl Globulin gm/dL Albumin/Globulin Ratio (1-2) TSH 3rd Generation (0.358-3.74) uIU/mL Urine Color Yellow (Yellow) Urine Appearance Clear (Clear) Urine pH 5.5 (5.0-8.0) Ur Specific [place] 1.025 (1.005-1.030) Urine Protein Negative (Negative) Urine Glucose (UA) Negative (Negative) Urine Ketones Negative (Negative) Urine Occult Blood Negative (Negative) Urine Nitrite Negative (Negative) Urine Bilirubin Negative (Negative) Urine Urobilinogen 0.2 (0.2-1.0) Ur Leukocyte Esterase 1+ H (Negative) Urine RBC 5-10 H (0-5) /hpf Urine WBC 10-20 H (0-5) /hpf Ur Epithelial Cells 0-5 (0-5) /hpf Urine Bacteria Moderate H (FEW) /hpf Urine Mucus Not seen (FEW) /hpf SARS-CoV-2 RNA (TOÑA) (NEGATIVE) MRSA (PCR) Negative Blood Type Gel Antibody Screen Crossmatch 10/02/20 10/03/20 10/03/20 Range/Units 21:50 04:48 04:48 WBC 14.40 H (4.23-9.07) K/mm3 RBC 3.50 L (4.63-6.08) M/mm3 Hgb 10.6 L D (13.7-17.5) gm/dl Hct 33.5 L (40.1-51.0) % MCV 95.7 H D (79.0-92.2) fl MCH 30.3 (25.7-32.2) pg MCHC 31.6 L (32.2-35.5) g/dl RDW Std Deviation 61.8 H (35.1-43.9) fL Plt Count 122 L (163-337) K/mm3 MPV 10.6 (9.4-12.3) fl Neut % (Auto) 78.1 H (34.0-67.9) % Lymph % (Auto) 11.6 L (21.8-53.1) % [place] % (Auto) 9.2 (5.3-12.2) % Eos % (Auto) 0.5 L (0.8-7.0) Baso % (Auto) 0.1 (0.1-1.2) % Neut # (Auto) 11.25 H (1.78-5.38) K/mm3 Lymph # (Auto) 1.67 (1.32-3.57) K/mm3 [place] # (Auto) 1.32 H (0.30-0.82) K/mm3 Eos # (Auto) 0.07 (0.04-0.54) K/mm3 Baso # (Auto) 0.02 (0.01-0.08) K/mm3 Manual Slide Review ESR (0-15) mm/hr Percent Retic (0.51-1.81) % PT (9.7-12.0) SECONDS INR APTT (21.7-31.4) SECONDS Sodium 144 (136-145) mEq/L Potassium 4.8 (3.5-5.1) mEq/L Chloride 109 H (98-107) mEq/L Carbon Dioxide 29 (21-32) mEq/L Anion Gap 10.8 (5-15) BUN 37 H (7-18) mg/dL Creatinine 1.4 H (0.7-1.3) mg/dL Est Cr Clr Drug Dosing 36.93 mL/min Estimated GFR (MDRD) 48 (>60) mL/min BUN/Creatinine Ratio 26.4 H (14-18) Glucose 80 L (83-115) mg/dL POC Glucose 130 H (70-99) mg/dL Hemoglobin A1c ( - 5.6) % Calcium 8.9 (8.5-10.1) mg/dL Magnesium 2.1 (1.8-2.4) mg/dl Iron (65-175) ug/dL TIBC (100-400) ug/dL % Saturation (20-55) % Transferrin (202-364) mg/dL Total Bilirubin 0.5 (0.2-1.0) mg/dL AST 83 H (15-37) U/L ALT 31 (16-63) U/L Alkaline Phosphatase 121 H (46-116) U/L CK-MB (CK-2) 56.7 H (0-3.6) ng/ml Troponin I 13.795 H* (0.00-0.056) ng/mL C-Reactive Protein (<1.0) mg/dL NT-Pro-B Natriuret Pep (0-450) pg/mL Total Protein 6.3 L (6.4-8.2) g/dl Albumin 2.9 L (3.4-5.0) g/dl Globulin 3.4 gm/dL Albumin/Globulin Ratio 0.9 L (1-2) TSH 3rd Generation (0.358-3.74) uIU/mL Urine Color (Yellow) Urine Appearance (Clear) Urine pH (5.0-8.0) Ur Specific [place] (1.005-1.030) Urine Protein (Negative) Urine Glucose (UA) (Negative) Urine Ketones (Negative) Urine Occult Blood (Negative) Urine Nitrite (Negative) Urine Bilirubin (Negative) Urine Urobilinogen (0.2-1.0) Ur Leukocyte Esterase (Negative) Urine RBC (0-5) /hpf Urine WBC (0-5) /hpf Ur Epithelial Cells (0-5) /hpf Urine Bacteria (FEW) /hpf Urine Mucus (FEW) /hpf SARS-CoV-2 RNA (TOÑA) (NEGATIVE) MRSA (PCR) Blood Type Gel Antibody Screen Crossmatch 10/03/20 Range/Units 08:15 WBC (4.23-9.07) K/mm3 RBC (4.63-6.08) M/mm3 Hgb (13.7-17.5) gm/dl Hct (40.1-51.0) % MCV (79.0-92.2) fl MCH (25.7-32.2) pg MCHC (32.2-35.5) g/dl RDW Std Deviation (35.1-43.9) fL Plt Count (163-337) K/mm3 MPV (9.4-12.3) fl Neut % (Auto) (34.0-67.9) % Lymph % (Auto) (21.8-53.1) % [place] % (Auto) (5.3-12.2) % Eos % (Auto) (0.8-7.0) Baso % (Auto) (0.1-1.2) % Neut # (Auto) (1.78-5.38) K/mm3 Lymph # (Auto) (1.32-3.57) K/mm3 [place] # (Auto) (0.30-0.82) K/mm3 Eos # (Auto) (0.04-0.54) K/mm3 Baso # (Auto) (0.01-0.08) K/mm3 Manual Slide Review ESR (0-15) mm/hr Percent Retic (0.51-1.81) % PT (9.7-12.0) SECONDS INR APTT (21.7-31.4) SECONDS Sodium (136-145) mEq/L Potassium (3.5-5.1) mEq/L Chloride (98-107) mEq/L Carbon Dioxide (21-32) mEq/L Anion Gap (5-15) BUN (7-18) mg/dL Creatinine (0.7-1.3) mg/dL Est Cr Clr Drug Dosing mL/min Estimated GFR (MDRD) (>60) mL/min BUN/Creatinine Ratio (14-18) Glucose (83-115) mg/dL POC Glucose 79 (70-99) mg/dL Hemoglobin A1c ( - 5.6) % Calcium (8.5-10.1) mg/dL Magnesium (1.8-2.4) mg/dl Iron (65-175) ug/dL TIBC (100-400) ug/dL % Saturation (20-55) % Transferrin (202-364) mg/dL Total Bilirubin (0.2-1.0) mg/dL AST (15-37) U/L ALT (16-63) U/L Alkaline Phosphatase (46-116) U/L CK-MB (CK-2) (0-3.6) ng/ml Troponin I (0.00-0.056) ng/mL C-Reactive Protein (<1.0) mg/dL NT-Pro-B Natriuret Pep (0-450) pg/mL Total Protein (6.4-8.2) g/dl Albumin (3.4-5.0) g/dl Globulin gm/dL Albumin/Globulin Ratio (1-2) TSH 3rd Generation (0.358-3.74) uIU/mL Urine Color (Yellow) Urine Appearance (Clear) Urine pH (5.0-8.0) Ur Specific [place] (1.005-1.030) Urine Protein (Negative) Urine Glucose (UA) (Negative) Urine Ketones (Negative) Urine Occult Blood (Negative) Urine Nitrite (Negative) Urine Bilirubin (Negative) Urine Urobilinogen (0.2-1.0) Ur Leukocyte Esterase (Negative) Urine RBC (0-5) /hpf Urine WBC (0-5) /hpf Ur Epithelial Cells (0-5) /hpf Urine Bacteria (FEW) /hpf Urine Mucus (FEW) /hpf SARS-CoV-2 RNA (TOÑA) (NEGATIVE) MRSA (PCR) Blood Type Gel Antibody Screen Crossmatch Med Orders - Current: Current Medications Acetaminophen (Acetaminophen 325 Mg Tab) 650 mg PO Q4H PRN PRN Reason: Pain (Mild 1-3)/fever Atropine Sulfate (Atropine 1% Ophth Soln 5 Ml Bottle) 0 ml SL Q2H PRN PRN Reason: secretions Last Admin: 10/03/20 11:32 Dose: 5 ml Documented by: Diphenhydramine HCl (Diphenhydramine 50 Mg/Ml Sdv) 12.5 mg IVPUSH Q8H PRN PRN Reason: Anxiety Last Admin: 10/03/20 02:18 Dose: 12.5 mg Documented by: Docusate Sodium (Docusate Sodium 100 Mg Cap) 100 mg PO BID PRN PRN Reason: Constipation Sodium Chloride (Normal Saline) 250 mls @ 250 mls/hr IV ASDIRECTED MARGOT Last Admin: 10/02/20 15:51 Dose: 250 mls/hr Documented by: Sodium Chloride (Normal Saline) 250 mls @ 250 mls/hr IV ASDIRECTED [facility] Lorazepam (Lorazepam 2 Mg/Ml Sdv) 0.25 mg IVPUSH Q4H PRN PRN Reason: Anxiety Last Admin: 10/03/20 04:45 Dose: 0.25 mg Documented by: Metoclopramide HCl (Metoclopramide 10 Mg/2 Ml Sdv) 5 mg IVPUSH Q4H PRN PRN Reason: Nausea/Vomiting Non-Formulary Medication (Oxygen) 3 liter EMELY ASDIRECTED PRN PRN Reason: low oxygen saturation Oxycodone HCl (Oxycodone 5 Mg Tab) 5 mg PO Q4H PRN PRN Reason: Pain (moderate 4-6) Pantoprazole Sodium (Pantoprazole 40 Mg Vial) 40 mg IVPUSH DAILY [facility] Last Admin: 10/03/20 08:19 Dose: 40 mg Documented by: Discontinued Medications Aspirin (Aspirin 81 Mg Tab.Chew) 324 mg PO ONETIME ONE Stop: 10/02/20 13:17 Last Admin: 10/02/20 13:27 Dose: 324 mg Documented by: Atropine Sulfate (Atropine 1% Ophth Soln 5 Ml Bottle) 0 ml SL Q2H [facility] Diphenhydramine HCl (Diphenhydramine 50 Mg/Ml Sdv) Confirm Administered Dose 50 mg .ROUTE .STK-MED ONE Stop: 10/02/20 14:52 Last Admin: 10/02/20 14:56 Dose: Not Given Documented by: Diphenhydramine HCl (Diphenhydramine 50 Mg/Ml Sdv) 12.5 mg IVPUSH ONETIME ONE Stop: 10/02/20 14:53 Last Admin: 10/02/20 14:54 Dose: 12.5 mg Documented by: Furosemide (Furosemide 40 Mg/4 Ml Vial) 40 mg IVPUSH NOW ONE Stop: 10/02/20 13:43 Last Admin: 10/02/20 14:55 Dose: 40 mg Documented by: Furosemide (Furosemide 20 Mg/2 Ml Vial) 20 mg IVPUSH NOW ONE Stop: 10/03/20 08:11 Last Admin: 10/03/20 08:19 Dose: 20 mg Documented by: Sodium Chloride (Normal Saline) 1,000 mls @ 75 mls/hr IV ASDIRECTED MARGOT Last Admin: 10/02/20 12:48 Dose: 75 mls/hr Documented by: Sodium Chloride (Normal Saline) Confirm Administered Dose 250 mls @ as directed .ROUTE .STK-MED ONE Stop: 10/02/20 15:46 Last Admin: 10/02/20 15:51 Dose: Not Given Documented by: Lorazepam (Lorazepam 2 Mg/Ml Sdv) 0.25 mg IV ONETIME ONE Stop: 10/02/20 13:12 Last Admin: 10/02/20 13:27 Dose: 0.25 mg Documented by: Metoclopramide HCl (Metoclopramide 10 Mg/2 Ml Sdv) 7.5 mg IVPUSH ONETIME ONE Stop: 10/02/20 13:11 Last Admin: 10/02/20 13:27 Dose: 7.5 mg Documented by: - Exam General: Alert, Oriented HEENT: Pupils Equal, Pupils Reactive, EOMI, Mucous Membr. Moist/[place] Neck: Supple Lungs: Normal Respiratory Effort, Crackles, Rales, Wheezing. No: Clear to Auscultation Cardiovascular: Regular Rate, Regular Rhythm GI/Abdominal Exam: Normal Bowel Sounds, Soft, Non-Tender, No Organomegaly, No Distention, No Abnormal Bruit, No Mass, Pelvis Stable (Male) Exam: No Hernia, Normal Inspection, Normal Prostate, Circumcised Back Exam: Normal Inspection, Full Range of Motion Extremities: Normal Inspection, Normal Range of Motion, Non-Tender, No Pedal Edema, Normal Capillary Refill Skin: Warm, Dry, Intact Wound/Incisions: Healing Well Neurological: No New Focal Deficit Psy/Mental Status: Alert, Normal Affect, Normal Mood - Patient Data Lab Results Last 24 hrs: Laboratory Results - last 24 hr 10/02/20 10/02/20 10/02/20 Range/Units 10:16 10:16 10:16 WBC (4.23-9.07) K/mm3 RBC (4.63-6.08) M/mm3 Hgb (13.7-17.5) gm/dl Hct (40.1-51.0) % MCV (79.0-92.2) fl MCH (25.7-32.2) pg MCHC (32.2-35.5) g/dl RDW Std Deviation (35.1-43.9) fL Plt Count (163-337) K/mm3 MPV (9.4-12.3) fl Neut % (Auto) (34.0-67.9) % Lymph % (Auto) (21.8-53.1) % [place] % (Auto) (5.3-12.2) % Eos % (Auto) (0.8-7.0) Baso % (Auto) (0.1-1.2) % Neut # (Auto) (1.78-5.38) K/mm3 Lymph # (Auto) (1.32-3.57) K/mm3 [place] # (Auto) (0.30-0.82) K/mm3 Eos # (Auto) (0.04-0.54) K/mm3 Baso # (Auto) (0.01-0.08) K/mm3 Manual Slide Review Abnormal smear ESR (0-15) mm/hr Percent Retic (0.51-1.81) % PT 10.6 (9.7-12.0) SECONDS INR 0.99 APTT 22.7 (21.7-31.4) SECONDS Sodium 142 (136-145) mEq/L Potassium 5.4 H (3.5-5.1) mEq/L Chloride 107 (98-107) mEq/L Carbon Dioxide 27 (21-32) mEq/L Anion Gap 13.4 (5-15) BUN 43 H (7-18) mg/dL Creatinine 1.7 H (0.7-1.3) mg/dL Est Cr Clr Drug Dosing 31.38 mL/min Estimated GFR (MDRD) 38 (>60) mL/min BUN/Creatinine Ratio 25.3 H (14-18) Glucose 120 H (83-115) mg/dL POC Glucose (70-99) mg/dL Hemoglobin A1c ( - 5.6) % Calcium 8.3 L (8.5-10.1) mg/dL Magnesium (1.8-2.4) mg/dl Iron (65-175) ug/dL TIBC (100-400) ug/dL % Saturation (20-55) % Transferrin (202-364) mg/dL Total Bilirubin 0.3 (0.2-1.0) mg/dL AST 68 H (15-37) U/L ALT 30 (16-63) U/L Alkaline Phosphatase 115 (46-116) U/L CK-MB (CK-2) (0-3.6) ng/ml Troponin I (0.00-0.056) ng/mL C-Reactive Protein (<1.0) mg/dL NT-Pro-B Natriuret Pep (0-450) pg/mL Total Protein 6.8 (6.4-8.2) g/dl Albumin 3.2 L (3.4-5.0) g/dl Globulin 3.6 gm/dL Albumin/Globulin Ratio 0.9 L (1-2) TSH 3rd Generation (0.358-3.74) uIU/mL Urine Color (Yellow) Urine Appearance (Clear) Urine pH (5.0-8.0) Ur Specific [place] (1.005-1.030) Urine Protein (Negative) Urine Glucose (UA) (Negative) Urine Ketones (Negative) Urine Occult Blood (Negative) Urine Nitrite (Negative) Urine Bilirubin (Negative) Urine Urobilinogen (0.2-1.0) Ur Leukocyte Esterase (Negative) Urine RBC (0-5) /hpf Urine WBC (0-5) /hpf Ur Epithelial Cells (0-5) /hpf Urine Bacteria (FEW) /hpf Urine Mucus (FEW) /hpf SARS-CoV-2 RNA (TOÑA) (NEGATIVE) MRSA (PCR) Blood Type Gel Antibody Screen Crossmatch 10/02/20 10/02/20 10/02/20 Range/Units 10:16 10:16 10:16 WBC (4.23-9.07) K/mm3 RBC (4.63-6.08) M/mm3 Hgb (13.7-17.5) gm/dl Hct (40.1-51.0) % MCV (79.0-92.2) fl MCH (25.7-32.2) pg MCHC (32.2-35.5) g/dl RDW Std Deviation (35.1-43.9) fL Plt Count (163-337) K/mm3 MPV (9.4-12.3) fl Neut % (Auto) (34.0-67.9) % Lymph % (Auto) (21.8-53.1) % [place] % (Auto) (5.3-12.2) % Eos % (Auto) (0.8-7.0) Baso % (Auto) (0.1-1.2) % Neut # (Auto) (1.78-5.38) K/mm3 Lymph # (Auto) (1.32-3.57) K/mm3 [place] # (Auto) (0.30-0.82) K/mm3 Eos # (Auto) (0.04-0.54) K/mm3 Baso # (Auto) (0.01-0.08) K/mm3 Manual Slide Review ESR 60 H (0-15) mm/hr Percent Retic (0.51-1.81) % PT (9.7-12.0) SECONDS INR APTT (21.7-31.4) SECONDS Sodium (136-145) mEq/L Potassium (3.5-5.1) mEq/L Chloride (98-107) mEq/L Carbon Dioxide (21-32) mEq/L Anion Gap (5-15) BUN (7-18) mg/dL Creatinine (0.7-1.3) mg/dL Est Cr Clr Drug Dosing mL/min Estimated GFR (MDRD) (>60) mL/min BUN/Creatinine Ratio (14-18) Glucose (83-115) mg/dL POC Glucose (70-99) mg/dL Hemoglobin A1c ( - 5.6) % Calcium (8.5-10.1) mg/dL Magnesium 2.5 H (1.8-2.4) mg/dl Iron (65-175) ug/dL TIBC (100-400) ug/dL % Saturation (20-55) % Transferrin (202-364) mg/dL Total Bilirubin (0.2-1.0) mg/dL AST (15-37) U/L ALT (16-63) U/L Alkaline Phosphatase (46-116) U/L CK-MB (CK-2) 90.4 H (0-3.6) ng/ml Troponin I 9.624 H* (0.00-0.056) ng/mL C-Reactive Protein 0.9 (<1.0) mg/dL NT-Pro-B Natriuret Pep 5104 H (0-450) pg/mL Total Protein (6.4-8.2) g/dl Albumin (3.4-5.0) g/dl Globulin gm/dL Albumin/Globulin Ratio (1-2) TSH 3rd Generation (0.358-3.74) uIU/mL Urine Color (Yellow) Urine Appearance (Clear) Urine pH (5.0-8.0) Ur Specific [place] (1.005-1.030) Urine Protein (Negative) Urine Glucose (UA) (Negative) Urine Ketones (Negative) Urine Occult Blood (Negative) Urine Nitrite (Negative) Urine Bilirubin (Negative) Urine Urobilinogen (0.2-1.0) Ur Leukocyte Esterase (Negative) Urine RBC (0-5) /hpf Urine WBC (0-5) /hpf Ur Epithelial Cells (0-5) /hpf Urine Bacteria (FEW) /hpf Urine Mucus (FEW) /hpf SARS-CoV-2 RNA (TOÑA) (NEGATIVE) MRSA (PCR) Blood Type Gel Antibody Screen Crossmatch 10/02/20 10/02/20 10/02/20 Range/Units 10:16 10:16 10:16 WBC (4.23-9.07) K/mm3 RBC (4.63-6.08) M/mm3 Hgb (13.7-17.5) gm/dl Hct (40.1-51.0) % MCV (79.0-92.2) fl MCH (25.7-32.2) pg MCHC (32.2-35.5) g/dl RDW Std Deviation (35.1-43.9) fL Plt Count (163-337) K/mm3 MPV (9.4-12.3) fl Neut % (Auto) (34.0-67.9) % Lymph % (Auto) (21.8-53.1) % [place] % (Auto) (5.3-12.2) % Eos % (Auto) (0.8-7.0) Baso % (Auto) (0.1-1.2) % Neut # (Auto) (1.78-5.38) K/mm3 Lymph # (Auto) (1.32-3.57) K/mm3 [place] # (Auto) (0.30-0.82) K/mm3 Eos # (Auto) (0.04-0.54) K/mm3 Baso # (Auto) (0.01-0.08) K/mm3 Manual Slide Review ESR (0-15) mm/hr Percent Retic (0.51-1.81) % PT (9.7-12.0) SECONDS INR APTT (21.7-31.4) SECONDS Sodium (136-145) mEq/L Potassium (3.5-5.1) mEq/L Chloride (98-107) mEq/L Carbon Dioxide (21-32) mEq/L Anion Gap (5-15) BUN (7-18) mg/dL Creatinine (0.7-1.3) mg/dL Est Cr Clr Drug Dosing mL/min Estimated GFR (MDRD) (>60) mL/min BUN/Creatinine Ratio (14-18) Glucose (83-115) mg/dL POC Glucose (70-99) mg/dL Hemoglobin A1c ( - 5.6) % Calcium (8.5-10.1) mg/dL Magnesium (1.8-2.4) mg/dl Iron 39 L (65-175) ug/dL TIBC 371 (100-400) ug/dL % Saturation 11 L (20-55) % Transferrin 297 (202-364) mg/dL Total Bilirubin (0.2-1.0) mg/dL AST (15-37) U/L ALT (16-63) U/L Alkaline Phosphatase (46-116) U/L CK-MB (CK-2) (0-3.6) ng/ml Troponin I (0.00-0.056) ng/mL C-Reactive Protein (<1.0) mg/dL NT-Pro-B Natriuret Pep (0-450) pg/mL Total Protein (6.4-8.2) g/dl Albumin (3.4-5.0) g/dl Globulin gm/dL Albumin/Globulin Ratio (1-2) TSH 3rd Generation 2.337 (0.358-3.74) uIU/mL Urine Color (Yellow) Urine Appearance (Clear) Urine pH (5.0-8.0) Ur Specific [place] (1.005-1.030) Urine Protein (Negative) Urine Glucose (UA) (Negative) Urine Ketones (Negative) Urine Occult Blood (Negative) Urine Nitrite (Negative) Urine Bilirubin (Negative) Urine Urobilinogen (0.2-1.0) Ur Leukocyte Esterase (Negative) Urine RBC (0-5) /hpf Urine WBC (0-5) /hpf Ur Epithelial Cells (0-5) /hpf Urine Bacteria (FEW) /hpf Urine Mucus (FEW) /hpf SARS-CoV-2 RNA (TOÑA) (NEGATIVE) MRSA (PCR) Blood Type A POSITIVE Gel Antibody Screen Negative Crossmatch See Detail 10/02/20 10/02/20 10/02/20 Range/Units 11:20 11:20 11:34 WBC (4.23-9.07) K/mm3 RBC (4.63-6.08) M/mm3 Hgb (13.7-17.5) gm/dl Hct (40.1-51.0) % MCV (79.0-92.2) fl MCH (25.7-32.2) pg MCHC (32.2-35.5) g/dl RDW Std Deviation (35.1-43.9) fL Plt Count (163-337) K/mm3 MPV (9.4-12.3) fl Neut % (Auto) (34.0-67.9) % Lymph % (Auto) (21.8-53.1) % [place] % (Auto) (5.3-12.2) % Eos % (Auto) (0.8-7.0) Baso % (Auto) (0.1-1.2) % Neut # (Auto) (1.78-5.38) K/mm3 Lymph # (Auto) (1.32-3.57) K/mm3 [place] # (Auto) (0.30-0.82) K/mm3 Eos # (Auto) (0.04-0.54) K/mm3 Baso # (Auto) (0.01-0.08) K/mm3 Manual Slide Review ESR (0-15) mm/hr Percent Retic 5.14 H (0.51-1.81) % PT (9.7-12.0) SECONDS INR APTT (21.7-31.4) SECONDS Sodium (136-145) mEq/L Potassium (3.5-5.1) mEq/L Chloride (98-107) mEq/L Carbon Dioxide (21-32) mEq/L Anion Gap (5-15) BUN (7-18) mg/dL Creatinine (0.7-1.3) mg/dL Est Cr Clr Drug Dosing mL/min Estimated GFR (MDRD) (>60) mL/min BUN/Creatinine Ratio (14-18) Glucose (83-115) mg/dL POC Glucose (70-99) mg/dL Hemoglobin A1c 5.6 ( - 5.6) % Calcium (8.5-10.1) mg/dL Magnesium (1.8-2.4) mg/dl Iron (65-175) ug/dL TIBC (100-400) ug/dL % Saturation (20-55) % Transferrin (202-364) mg/dL Total Bilirubin (0.2-1.0) mg/dL AST (15-37) U/L ALT (16-63) U/L Alkaline Phosphatase (46-116) U/L CK-MB (CK-2) (0-3.6) ng/ml Troponin I (0.00-0.056) ng/mL C-Reactive Protein (<1.0) mg/dL NT-Pro-B Natriuret Pep (0-450) pg/mL Total Protein (6.4-8.2) g/dl Albumin (3.4-5.0) g/dl Globulin gm/dL Albumin/Globulin Ratio (1-2) TSH 3rd Generation (0.358-3.74) uIU/mL Urine Color (Yellow) Urine Appearance (Clear) Urine pH (5.0-8.0) Ur Specific [place] (1.005-1.030) Urine Protein (Negative) Urine Glucose (UA) (Negative) Urine Ketones (Negative) Urine Occult Blood (Negative) Urine Nitrite (Negative) Urine Bilirubin (Negative) Urine Urobilinogen (0.2-1.0) Ur Leukocyte Esterase (Negative) Urine RBC (0-5) /hpf Urine WBC (0-5) /hpf Ur Epithelial Cells (0-5) /hpf Urine Bacteria (FEW) /hpf Urine Mucus (FEW) /hpf SARS-CoV-2 RNA (TOÑA) Negative (NEGATIVE) MRSA (PCR) Blood Type Gel Antibody Screen Crossmatch 10/02/20 10/02/20 10/02/20 Range/Units 14:10 17:38 17:54 WBC (4.23-9.07) K/mm3 RBC (4.63-6.08) M/mm3 Hgb (13.7-17.5) gm/dl Hct (40.1-51.0) % MCV (79.0-92.2) fl MCH (25.7-32.2) pg MCHC (32.2-35.5) g/dl RDW Std Deviation (35.1-43.9) fL Plt Count (163-337) K/mm3 MPV (9.4-12.3) fl Neut % (Auto) (34.0-67.9) % Lymph % (Auto) (21.8-53.1) % [place] % (Auto) (5.3-12.2) % Eos % (Auto) (0.8-7.0) Baso % (Auto) (0.1-1.2) % Neut # (Auto) (1.78-5.38) K/mm3 Lymph # (Auto) (1.32-3.57) K/mm3 [place] # (Auto) (0.30-0.82) K/mm3 Eos # (Auto) (0.04-0.54) K/mm3 Baso # (Auto) (0.01-0.08) K/mm3 Manual Slide Review ESR (0-15) mm/hr Percent Retic (0.51-1.81) % PT (9.7-12.0) SECONDS INR APTT (21.7-31.4) SECONDS Sodium (136-145) mEq/L Potassium (3.5-5.1) mEq/L Chloride (98-107) mEq/L Carbon Dioxide (21-32) mEq/L Anion Gap (5-15) BUN (7-18) mg/dL Creatinine (0.7-1.3) mg/dL Est Cr Clr Drug Dosing mL/min Estimated GFR (MDRD) (>60) mL/min BUN/Creatinine Ratio (14-18) Glucose (83-115) mg/dL POC Glucose 90 (70-99) mg/dL Hemoglobin A1c ( - 5.6) % Calcium (8.5-10.1) mg/dL Magnesium (1.8-2.4) mg/dl Iron (65-175) ug/dL TIBC (100-400) ug/dL % Saturation (20-55) % Transferrin (202-364) mg/dL Total Bilirubin (0.2-1.0) mg/dL AST (15-37) U/L ALT (16-63) U/L Alkaline Phosphatase (46-116) U/L CK-MB (CK-2) (0-3.6) ng/ml Troponin I (0.00-0.056) ng/mL C-Reactive Protein (<1.0) mg/dL NT-Pro-B Natriuret Pep (0-450) pg/mL Total Protein (6.4-8.2) g/dl Albumin (3.4-5.0) g/dl Globulin gm/dL Albumin/Globulin Ratio (1-2) TSH 3rd Generation (0.358-3.74) uIU/mL Urine Color Yellow (Yellow) Urine Appearance Clear (Clear) Urine pH 5.5 (5.0-8.0) Ur Specific [place] 1.025 (1.005-1.030) Urine Protein Negative (Negative) Urine Glucose (UA) Negative (Negative) Urine Ketones Negative (Negative) Urine Occult Blood Negative (Negative) Urine Nitrite Negative (Negative) Urine Bilirubin Negative (Negative) Urine Urobilinogen 0.2 (0.2-1.0) Ur Leukocyte Esterase 1+ H (Negative) Urine RBC 5-10 H (0-5) /hpf Urine WBC 10-20 H (0-5) /hpf Ur Epithelial Cells 0-5 (0-5) /hpf Urine Bacteria Moderate H (FEW) /hpf Urine Mucus Not seen (FEW) /hpf SARS-CoV-2 RNA (TOÑA) (NEGATIVE) MRSA (PCR) Negative Blood Type Gel Antibody Screen Crossmatch 10/02/20 10/03/20 10/03/20 Range/Units 21:50 04:48 04:48 WBC 14.40 H (4.23-9.07) K/mm3 RBC 3.50 L (4.63-6.08) M/mm3 Hgb 10.6 L D (13.7-17.5) gm/dl Hct 33.5 L (40.1-51.0) % MCV 95.7 H D (79.0-92.2) fl MCH 30.3 (25.7-32.2) pg MCHC 31.6 L (32.2-35.5) g/dl RDW Std Deviation 61.8 H (35.1-43.9) fL Plt Count 122 L (163-337) K/mm3 MPV 10.6 (9.4-12.3) fl Neut % (Auto) 78.1 H (34.0-67.9) % Lymph % (Auto) 11.6 L (21.8-53.1) % [place] % (Auto) 9.2 (5.3-12.2) % Eos % (Auto) 0.5 L (0.8-7.0) Baso % (Auto) 0.1 (0.1-1.2) % Neut # (Auto) 11.25 H (1.78-5.38) K/mm3 Lymph # (Auto) 1.67 (1.32-3.57) K/mm3 [place] # (Auto) 1.32 H (0.30-0.82) K/mm3 Eos # (Auto) 0.07 (0.04-0.54) K/mm3 Baso # (Auto) 0.02 (0.01-0.08) K/mm3 Manual Slide Review ESR (0-15) mm/hr Percent Retic (0.51-1.81) % PT (9.7-12.0) SECONDS INR APTT (21.7-31.4) SECONDS Sodium 144 (136-145) mEq/L Potassium 4.8 (3.5-5.1) mEq/L Chloride 109 H (98-107) mEq/L Carbon Dioxide 29 (21-32) mEq/L Anion Gap 10.8 (5-15) BUN 37 H (7-18) mg/dL Creatinine 1.4 H (0.7-1.3) mg/dL Est Cr Clr Drug Dosing 36.93 mL/min Estimated GFR (MDRD) 48 (>60) mL/min BUN/Creatinine Ratio 26.4 H (14-18) Glucose 80 L (83-115) mg/dL POC Glucose 130 H (70-99) mg/dL Hemoglobin A1c ( - 5.6) % Calcium 8.9 (8.5-10.1) mg/dL Magnesium 2.1 (1.8-2.4) mg/dl Iron (65-175) ug/dL TIBC (100-400) ug/dL % Saturation (20-55) % Transferrin (202-364) mg/dL Total Bilirubin 0.5 (0.2-1.0) mg/dL AST 83 H (15-37) U/L ALT 31 (16-63) U/L Alkaline Phosphatase 121 H (46-116) U/L CK-MB (CK-2) 56.7 H (0-3.6) ng/ml Troponin I 13.795 H* (0.00-0.056) ng/mL C-Reactive Protein (<1.0) mg/dL NT-Pro-B Natriuret Pep (0-450) pg/mL Total Protein 6.3 L (6.4-8.2) g/dl Albumin 2.9 L (3.4-5.0) g/dl Globulin 3.4 gm/dL Albumin/Globulin Ratio 0.9 L (1-2) TSH 3rd Generation (0.358-3.74) uIU/mL Urine Color (Yellow) Urine Appearance (Clear) Urine pH (5.0-8.0) Ur Specific [place] (1.005-1.030) Urine Protein (Negative) Urine Glucose (UA) (Negative) Urine Ketones (Negative) Urine Occult Blood (Negative) Urine Nitrite (Negative) Urine Bilirubin (Negative) Urine Urobilinogen (0.2-1.0) Ur Leukocyte Esterase (Negative) Urine RBC (0-5) /hpf Urine WBC (0-5) /hpf Ur Epithelial Cells (0-5) /hpf Urine Bacteria (FEW) /hpf Urine Mucus (FEW) /hpf SARS-CoV-2 RNA (TOÑA) (NEGATIVE) MRSA (PCR) Blood Type Gel Antibody Screen Crossmatch 10/03/20 Range/Units 08:15 WBC (4.23-9.07) K/mm3 RBC (4.63-6.08) M/mm3 Hgb (13.7-17.5) gm/dl Hct (40.1-51.0) % MCV (79.0-92.2) fl MCH (25.7-32.2) pg MCHC (32.2-35.5) g/dl RDW Std Deviation (35.1-43.9) fL Plt Count (163-337) K/mm3 MPV (9.4-12.3) fl Neut % (Auto) (34.0-67.9) % Lymph % (Auto) (21.8-53.1) % [place] % (Auto) (5.3-12.2) % Eos % (Auto) (0.8-7.0) Baso % (Auto) (0.1-1.2) % Neut # (Auto) (1.78-5.38) K/mm3 Lymph # (Auto) (1.32-3.57) K/mm3 [place] # (Auto) (0.30-0.82) K/mm3 Eos # (Auto) (0.04-0.54) K/mm3 Baso # (Auto) (0.01-0.08) K/mm3 Manual Slide Review ESR (0-15) mm/hr Percent Retic (0.51-1.81) % PT (9.7-12.0) SECONDS INR APTT (21.7-31.4) SECONDS Sodium (136-145) mEq/L Potassium (3.5-5.1) mEq/L Chloride (98-107) mEq/L Carbon Dioxide (21-32) mEq/L Anion Gap (5-15) BUN (7-18) mg/dL Creatinine (0.7-1.3) mg/dL Est Cr Clr Drug Dosing mL/min Estimated GFR (MDRD) (>60) mL/min BUN/Creatinine Ratio (14-18) Glucose (83-115) mg/dL POC Glucose 79 (70-99) mg/dL Hemoglobin A1c ( - 5.6) % Calcium (8.5-10.1) mg/dL Magnesium (1.8-2.4) mg/dl Iron (65-175) ug/dL TIBC (100-400) ug/dL % Saturation (20-55) % Transferrin (202-364) mg/dL Total Bilirubin (0.2-1.0) mg/dL AST (15-37) U/L ALT (16-63) U/L Alkaline Phosphatase (46-116) U/L CK-MB (CK-2) (0-3.6) ng/ml Troponin I (0.00-0.056) ng/mL C-Reactive Protein (<1.0) mg/dL NT-Pro-B Natriuret Pep (0-450) pg/mL Total Protein (6.4-8.2) g/dl Albumin (3.4-5.0) g/dl Globulin gm/dL Albumin/Globulin Ratio (1-2) TSH 3rd Generation (0.358-3.74) uIU/mL Urine Color (Yellow) Urine Appearance (Clear) Urine pH (5.0-8.0) Ur Specific [place] (1.005-1.030) Urine Protein (Negative) Urine Glucose (UA) (Negative) Urine Ketones (Negative) Urine Occult Blood (Negative) Urine Nitrite (Negative) Urine Bilirubin (Negative) Urine Urobilinogen (0.2-1.0) Ur Leukocyte Esterase (Negative) Urine RBC (0-5) /hpf Urine WBC (0-5) /hpf Ur Epithelial Cells (0-5) /hpf Urine Bacteria (FEW) /hpf Urine Mucus (FEW) /hpf SARS-CoV-2 RNA (TOÑA) (NEGATIVE) MRSA (PCR) Blood Type Gel Antibody Screen Crossmatch Result Diagrams: 10/03/20 04:48 10/03/20 04:48 Sepsis Event Note - Evaluation Sepsis Screening Result: No Definite Risk - Focused Exam Vital Signs: Vital Signs Temp Pulse Resp BP Pulse Ox Pulse Ox 10/03/20 09:00 99 10/03/20 08:00 36.1 C 85 25 H 105/54 L 100 10/03/20 06:38 100 10/03/20 04:00 36.4 C 91 26 H 100/48 L 98 10/03/20 00:00 36.7 C 77 25 H 92/51 L 99 - Problem List & Annotations (1) Anemia SNOMED Code(s): 008970330 Code(s): D64.9 - ANEMIA, UNSPECIFIED Status: Acute Priority: Medium Current Visit: Yes Onset Date: ~10/02/20 Qualifiers: Anemia type: iron deficiency Iron deficiency anemia type: chronic blood loss Qualified Code(s): D50.0 - Iron deficiency anemia secondary to blood loss (chronic) Annotation/Comment:: hgn 6.6 to 11. now has evidence of worsening chf despite anemia correction . g.i bleed suspected but no melana noted. (2) CHF (congestive heart failure) SNOMED Code(s): 11033413 Code(s): I50.9 - HEART FAILURE, UNSPECIFIED Status: Acute Priority: High Current Visit: Yes Onset Date: ~10/02/20 Qualifiers: Heart failure type: combined systolic and diastolic Heart failure chronicity: acute on chronic Qualified Code(s): I50.43 - Acute on chronic combined systolic (congestive) and diastolic (congestive) heart failure Annotation/Comment:: worsening chf and pulm edema without signs of infiltrate or aspiration. will give 20 lasix b.p 100 but he has pvcs with any movement (multifocal) and discussed again with son and duaghter that he might not make it through the day sec to acute pulm edema and acute heart failure. trop increased to 14 . lytes stable (3) Chronic obstructive pulmonary disease (COPD) SNOMED Code(s): 65664243 Code(s): J44.9 - CHRONIC OBSTRUCTIVE PULMONARY DISEASE, UNSPECIFIED Status: Acute Priority: High Current Visit: Yes Onset Date: ~10/02/20 Qualifiers: COPD type: emphysema Emphysema type: panlobular Qualified Code(s): J43.1 - Panlobular emphysema Annotation/Comment:: cont nebs / no heroic measures. he is dnr/dni (4) Chronic renal insufficiency, stage III (moderate) SNOMED Code(s): 197899288 Code(s): N18.30 - CHRONIC KIDNEY DISEASE, STAGE 3 UNSPECIFIED Status: Acute Priority: Medium Current Visit: Yes Qualifiers: Chronic kidney disease stage 3 subtype: stage 3b (GFR 30-44) Qualified Code(s): N18.32 - Chronic kidney disease, stage 3b (5) Elevated troponin I measurement SNOMED Code(s): 663625884 Code(s): R77.8 - OTHER SPECIFIED ABNORMALITIES OF PLASMA PROTEINS Status: Acute Priority: High Current Visit: Yes Annotation/Comment:: retic count 6 % (6) Hyperkalemia SNOMED Code(s): 16895883 Code(s): E87.5 - HYPERKALEMIA Status: Acute Priority: Low Current Visit: Yes Onset Date: ~10/03/20 Annotation/Comment:: monitoring after transfusion creatine better (7) Hypotension SNOMED Code(s): 72687267 Code(s): I95.9 - HYPOTENSION, UNSPECIFIED Status: Acute Priority: High Current Visit: Yes Qualifiers: Hypotension type: unspecified hypotension type Qualified Code(s): I95.9 - Hypotension, unspecified Annotation/Comment:: hypotension better after transfusion but cardiogenic failure severe. - Problem List Review Problem List Initiated/Reviewed/Updated: Yes - My Orders Last 24 Hours: My Active Orders 10/03/20 11:07 Atropine 1% [Atropine 1% Ophth Soln] 0 ml SL Q2H PRN 10/03/20 11:09 Oxygen 3 liter EMELY ASDIRECTED PRN 10/04/20 07:58 Chest 1V Frontal [CR] DAILY - Plan Plan:: I have seen and evaluated the patient independently of JDAIEL Madden, and have reviewed and agree with the orders and plan of care as outlined by her. I have discussed the case with her. I have discussed the poor prognosis of the patient with his son. I had a long discussion with regards to comfort measures. I also suggested that family members come in. Patient's son says that he is going to talk to other family members before transitioning to comfort care measures only. Please see orders. 10/03/20 afebrile hypotension improved without ionotrops but pulm edema now worsening and family aware. rattly resp with crackles. mirna on rt / chest xray increased pulm edema . cor pvcs multifocal with activity a nd turning. soft almost inaudible heart tones but no s3/s4 abd not taking anything sec. to decreased sensorium. gurgly resp and given atropine . neuro obtunded and responds to name . m.s edema increased and no bruising that is severe. skin i.v sight clean assess 1)cardiogenic failure and family making comfort measures if he does not start to improve. 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 very limited options given age and condition and family aware . 3) anemia acute g.i bleed on meloxicam no anticoagulation and given one dose lovenox this a.m to try to stave off ami . 4)diabetes stable. plan. lasix this am and lovenox x one. if not able to stabilize b.p discussed ionotropic drips but family thinking comfort care if his outlook is poor ( it is ) supportive care for all other aspects but hold p.o meds and support with i.v meds . boh
[2020-10-03] MEDS: Carboxymethylcellulose Sodium 1% Ophth Gel 15 ML Bottle EYEBOTH PRN (16:34)
[2020-10-03] MEDS: Metoprolol Succinate 25 MG Tab.ER PO SCH (20:48)
[2020-10-04] MEDS: Morphine 2 MG/ML SYRINGE IVPUSH PRN ×2 (02:26→15:37)
[2020-10-04] MEDS ORDERED: Furosemide 20 MG/2 ML VIAL IVPUSH ONE ×2 (06:00→15:11)
--- NOTE | 2020-10-04 07:44 | CR ---
Chest: Portable view of the chest was obtained. Comparison: Prior chest x-rays of 10/02/20 and 08/13/18. Heart is enlarged. Prior sternotomy is noted. Lung markings are increased but appear improved from prior exam. Slight scarring is noted within left lung base which is stable. There is also pleural thickening within the right lung which is stable. No acute osseous finding is seen. Impression: 1. Cardiomegaly with increased pulmonary vessels which appear improved from prior exam. 2. Other stable findings as noted above. Diagnostic code #2
[2020-10-04] MEDS: Aspirin 81 MG Tab.EC PO SCH (07:59)
[2020-10-04] MEDS: Metoprolol Succinate 25 MG Tab.ER PO SCH (08:00)
[2020-10-04] MEDS: Atropine 1% Ophth Soln 5 ML BOTTLE SL PRN (08:00)
[2020-10-04] MEDS: Carboxymethylcellulose Sodium 1% Ophth Gel 15 ML Bottle EYEBOTH PRN (08:00)
[2020-10-04] MEDS: Pantoprazole 40 MG Vial IVPUSH SCH (09:42)
[2020-10-04] MEDS: Albuterol/Ipratropium 3.0-0.5 MG/3 ML Neb Soln NEB SCH ×3 (10:30→20:25)
--- NOTE | 2020-10-04 10:37 | PCM.PN ---
- General Info Date of Service: 10/04/20 Admission Dx/Problem (Free Text): Admission Diagnosis/Problem Admission Diagnosis/Problem Anemia Subjective Update: 10/03/20 afebrile hypotension improved without ionotrops but pulm edema now worsening and family aware. rattly resp with crackles. mirna on rt / chest xray increased pulm edema . cor pvcs multifocal with activity a nd turning. soft almost inaudible heart tones but no s3/s4 abd not taking anything sec. to decreased sensorium. gurgly resp and given atropine . neuro obtunded and responds to name . m.s edema increased and no bruising that is severe. skin i.v sight clean assess 1)cardiogenic failure and family making comfort measures if he does not start to improve. 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 very limited options given age and condition and family aware . 3) anemia acute g.i bleed on meloxicam no anticoagulation and given one dose lovenox this a.m to try to stave off ami . 4)diabetes stable. plan. lasix this am and lovenox x one. if not able to stabilize b.p discussed ionotropic drips but family thinking comfort care if his outlook is poor ( it is ) supportive care for all other aspects but hold p.o meds and support with i.v meds . [facility] Provider Simple Note Patient Name: SOLO CUEVAS Date of : 1930 Patient Status: Inpatient Attending Provider: Geraldo Lubin Date: 10/04/20 10:33 Initialization Date: 10/04/20 10:33 - Free Text/Narrative Note: 10/03/20 10 pm note continues to be alert and doing well. mild confusion good urine output all day with lasix x one and sats stable 90-92 on pulse ox checks. hr 90s with multifocal pvcs. ate supper completely and family visiting . discussed prognosis with family and will bring out of comfort care as they would like his nebs and meds given and cardiac output appears to be stabilizing as does resp failure. boh 10/04/20 afebrile b.p low thisa am and metoprolol held / stable night slept well/ c/o of aches in feet and hands and al over,but mild. resp sats this am stable 90-94%/ decreased bs at bases no wheezing cvs regular irreg. rythum 70-90 no jvd// trace edema legs. no calf tenderness. abd benign eating breakfast well . neuro mild confusion but ao and knows all family present . trop 9 this am / rest pending . cbc hgn 10.7 creat. stable 1.4. chest xray chronic vasc congestion but improved chf appearance no infiltrates// enlarged heart unchanged . assess: 1)chf : improved but b.p dropping with diuresis.. pvcs cont. 2)cad : trop decreasing and cv status not stable yet (hypotension) but improved breathing and appetite/alertness and interaction . 3) anemia on pantiprozole and to unstable for endoscopy but check stool hemmoccults no brbr or melana noted. constipation being addressed . 4) nutritional status improving / t.p stable today creat. 1.5 . eating well with suppliments 5)oa/aches will try to get up to chair today if able to tolerate. no spec joints today. no signs gout but check uric acid. 6) renal insuff stable daily lasix likely if b.p will handle it. 7)copd restarted nebs x4 daily with cpt treatments . pretty severe emphysema and cor pulm clinically but improved sats and o2 at 1 liters boh Functional Status: Reports: Pain Controlled, Tolerating Diet, Urinating - Review of Systems General: Reports: Weakness. Denies: Fever Pulmonary: Reports: Shortness of Breath Cardiovascular: Reports: Palpitations, Dyspnea on Exertion, Orthopnea, Lightheadedness Gastrointestinal: Reports: No Symptoms (no bm x 4 days ) Genitourinary: Reports: No Symptoms Musculoskeletal: Reports: No Symptoms Skin: Reports: Bruising Neurological: Reports: No Symptoms, Confusion Psychiatric: Reports: Confusion - Patient Data Vitals - Most Recent: Last Vital Signs Temp 36.1 C 10/04/20 10:04 Pulse 98 10/04/20 10:04 Resp 24 H 10/04/20 10:04 BP 94/61 10/04/20 10:04 Pulse Ox 96 10/04/20 10:04 Weight - Most Recent: 83.642 kg I&O - Last 24 Hours: Intake & Output 10/03/20 10/04/20 10/04/20 22:59 06:59 14:59 Intake Total 220 500 Output Total 756 101 450 Balance -825 -30 -450 Lab Results Last 24 Hours: Laboratory Results - last 24 hr 10/04/20 10/04/20 10/04/20 Range/Units 07:30 07:30 07:30 WBC 13.81 H (4.23-9.07) K/mm3 RBC 3.52 L (4.63-6.08) M/mm3 Hgb 10.9 L (13.7-17.5) gm/dl Hct 34.1 L (40.1-51.0) % MCV 96.9 H (79.0-92.2) fl MCH 31.0 (25.7-32.2) pg MCHC 32.0 L (32.2-35.5) g/dl RDW Std Deviation 57.9 H (35.1-43.9) fL Plt Count 119 L (163-337) K/mm3 MPV 10.1 (9.4-12.3) fl Neut % (Auto) 75.1 H (34.0-67.9) % Lymph % (Auto) 11.8 L (21.8-53.1) % Haines % (Auto) 11.8 (5.3-12.2) % Eos % (Auto) 0.8 (0.8-7.0) Baso % (Auto) 0.1 (0.1-1.2) % Neut # (Auto) 10.38 H (1.78-5.38) K/mm3 Lymph # (Auto) 1.63 (1.32-3.57) K/mm3 Haines # (Auto) 1.63 H (0.30-0.82) K/mm3 Eos # (Auto) 0.11 (0.04-0.54) K/mm3 Baso # (Auto) 0.01 (0.01-0.08) K/mm3 Manual Slide Review Abnormal smear Sodium 142 (136-145) mEq/L Potassium 4.5 (3.5-5.1) mEq/L Chloride 104 (98-107) mEq/L Carbon Dioxide 31 (21-32) mEq/L Anion Gap 11.5 (5-15) BUN 35 H (7-18) mg/dL Creatinine 1.5 H (0.7-1.3) mg/dL Est Cr Clr Drug Dosing 34.47 mL/min Estimated GFR (MDRD) 44 (>60) mL/min BUN/Creatinine Ratio 23.3 H (14-18) Glucose 142 H (83-115) mg/dL Calcium 9.2 (8.5-10.1) mg/dL Troponin I 9.209 H* (0.00-0.056) ng/mL NT-Pro-B Natriuret Pep 4123 H (0-450) pg/mL Med Orders - Current: Current Medications Acetaminophen (Acetaminophen 325 Mg Tab) 650 mg PO Q4H PRN PRN Reason: Pain (Mild 1-3)/fever Albuterol/Ipratropium (Albuterol/Ipratropium 3.0-0.5 Mg/3 Ml Neb Soln) 3 ml NEB Q6HRRT [facility] Last Admin: 10/04/20 10:30 Dose: 3 ml Documented by: Artificial Tears (Carboxymethylcellulose Sodium 1% Ophth Gel 15 Ml Bottle) 0 ml EYEBOTH ASDIRECTED PRN PRN Reason: Dry Eyes Last Admin: 10/04/20 08:00 Dose: 15 ml Documented by: Aspirin (Aspirin 81 Mg Tab.Ec) 81 mg PO DAILY [facility] Last Admin: 10/04/20 07:59 Dose: 81 mg Documented by: Atropine Sulfate (Atropine 1% Ophth Soln 5 Ml Bottle) 0 ml SL Q2H PRN PRN Reason: secretions Last Admin: 10/04/20 08:00 Dose: 5 ml Documented by: Diphenhydramine HCl (Diphenhydramine 50 Mg/Ml Sdv) 12.5 mg IVPUSH Q8H PRN PRN Reason: Anxiety Last Admin: 10/03/20 22:22 Dose: 12.5 mg Documented by: Docusate Sodium (Docusate Sodium 100 Mg Cap) 100 mg PO BID PRN PRN Reason: Constipation Guaifenesin (Guaifenesin 600 Mg Tab.Er) 600 mg PO BID [facility] Lorazepam (Lorazepam 2 Mg/Ml Sdv) 0.25 mg IVPUSH Q4H PRN PRN Reason: Anxiety Last Admin: 10/03/20 23:51 Dose: 0.25 mg Documented by: Metoclopramide HCl (Metoclopramide 10 Mg/2 Ml Sdv) 5 mg IVPUSH Q4H PRN PRN Reason: Nausea/Vomiting Metoprolol Succinate (Metoprolol Succinate 25 Mg Tab.Er) 25 mg PO DAILY [facility] Last Admin: 10/04/20 08:00 Dose: Not Given Documented by: Morphine Sulfate (Morphine 2 Mg/Ml Syringe) 2 mg IVPUSH Q1H PRN PRN Reason: Pain Last Admin: 10/04/20 02:26 Dose: 2 mg Documented by: Non-Formulary Medication (Roflumilast) 500 mcg PO DAILY [facility] Oxycodone HCl (Oxycodone 5 Mg Tab) 5 mg PO Q4H PRN PRN Reason: Pain (moderate 4-6) Pantoprazole Sodium (Pantoprazole 40 Mg Vial) 20 mg IVPUSH DAILY [facility] Last Admin: 10/04/20 09:42 Dose: 20 mg Documented by: Discontinued Medications Aspirin (Aspirin 81 Mg Tab.Chew) 324 mg PO ONETIME ONE Stop: 10/02/20 13:17 Last Admin: 10/02/20 13:27 Dose: 324 mg Documented by: Atropine Sulfate (Atropine 1% Ophth Soln 5 Ml Bottle) 0 ml SL Q2H [facility] Diphenhydramine HCl (Diphenhydramine 50 Mg/Ml Sdv) Confirm Administered Dose 50 mg .ROUTE .STK-MED ONE Stop: 10/02/20 14:52 Last Admin: 10/02/20 14:56 Dose: Not Given Documented by: Diphenhydramine HCl (Diphenhydramine 50 Mg/Ml Sdv) 12.5 mg IVPUSH ONETIME ONE Stop: 10/02/20 14:53 Last Admin: 10/02/20 14:54 Dose: 12.5 mg Documented by: Furosemide (Furosemide 40 Mg/4 Ml Vial) 40 mg IVPUSH NOW ONE Stop: 10/02/20 13:43 Last Admin: 10/02/20 14:55 Dose: 40 mg Documented by: Furosemide (Furosemide 20 Mg/2 Ml Vial) 20 mg IVPUSH NOW ONE Stop: 10/03/20 08:11 Last Admin: 10/03/20 08:19 Dose: 20 mg Documented by: Furosemide (Furosemide 20 Mg/2 Ml Vial) 20 mg IVPUSH ONETIME ONE Stop: 10/04/20 06:01 Last Admin: 10/04/20 06:48 Dose: 20 mg Documented by: Sodium Chloride (Normal Saline) 1,000 mls @ 75 mls/hr IV ASDIRECTED [facility] Last Admin: 10/02/20 12:48 Dose: 75 mls/hr Documented by: Sodium Chloride (Normal Saline) 250 mls @ 250 mls/hr IV ASDIRECTED [facility] Last Admin: 10/02/20 15:51 Dose: 250 mls/hr Documented by: Sodium Chloride (Normal Saline) Confirm Administered Dose 250 mls @ as directed .ROUTE .STK-MED ONE Stop: 10/02/20 15:46 Last Admin: 10/02/20 15:51 Dose: Not Given Documented by: Sodium Chloride (Normal Saline) 250 mls @ 250 mls/hr IV ASDIRECTED [facility] Lorazepam (Lorazepam 2 Mg/Ml Sdv) 0.25 mg IV ONETIME ONE Stop: 10/02/20 13:12 Last Admin: 10/02/20 13:27 Dose: 0.25 mg Documented by: Metoclopramide HCl (Metoclopramide 10 Mg/2 Ml Sdv) 7.5 mg IVPUSH ONETIME ONE Stop: 10/02/20 13:11 Last Admin: 10/02/20 13:27 Dose: 7.5 mg Documented by: Non-Formulary Medication (Oxygen) 3 liter EMELY ASDIRECTED PRN PRN Reason: low oxygen saturation Pantoprazole Sodium (Pantoprazole 40 Mg Vial) 40 mg IVPUSH DAILY [facility] Last Admin: 10/03/20 08:19 Dose: 40 mg Documented by: - Exam Quality Assessment: Supplemental Oxygen General: Alert, Oriented HEENT: Pupils Equal, Pupils Reactive, EOMI, Mucous Membr. Moist/[place] Neck: Supple Lungs: Clear to Auscultation, Normal Respiratory Effort, Decreased Breath So unds, Other. No: Wheezing Cardiovascular: Regular Rate, Regular Rhythm GI/Abdominal Exam: Normal Bowel Sounds, Soft, Non-Tender, No Organomegaly, No Distention, No Abnormal Bruit, No Mass, Pelvis Stable (Male) Exam: No Hernia, Normal Inspection, Normal Prostate, Circumcised Back Exam: Normal Inspection, Full Range of Motion Extremities: Normal Inspection, Normal Range of Motion, Non-Tender, No Pedal Edema, Normal Capillary Refill Skin: Warm, Dry, Intact Wound/Incisions: Healing Well Neurological: No New Focal Deficit Psy/Mental Status: Alert, Normal Affect, Normal Mood - Patient Data Lab Results Last 24 hrs: Laboratory Results - last 24 hr 10/04/20 10/04/20 10/04/20 Range/Units 07:30 07:30 07:30 WBC 13.81 H (4.23-9.07) K/mm3 RBC 3.52 L (4.63-6.08) M/mm3 Hgb 10.9 L (13.7-17.5) gm/dl Hct 34.1 L (40.1-51.0) % MCV 96.9 H (79.0-92.2) fl MCH 31.0 (25.7-32.2) pg MCHC 32.0 L (32.2-35.5) g/dl RDW Std Deviation 57.9 H (35.1-43.9) fL Plt Count 119 L (163-337) K/mm3 MPV 10.1 (9.4-12.3) fl Neut % (Auto) 75.1 H (34.0-67.9) % Lymph % (Auto) 11.8 L (21.8-53.1) % Haines % (Auto) 11.8 (5.3-12.2) % Eos % (Auto) 0.8 (0.8-7.0) Baso % (Auto) 0.1 (0.1-1.2) % Neut # (Auto) 10.38 H (1.78-5.38) K/mm3 Lymph # (Auto) 1.63 (1.32-3.57) K/mm3 Haines # (Auto) 1.63 H (0.30-0.82) K/mm3 Eos # (Auto) 0.11 (0.04-0.54) K/mm3 Baso # (Auto) 0.01 (0.01-0.08) K/mm3 Manual Slide Review Abnormal smear Sodium 142 (136-145) mEq/L Potassium 4.5 (3.5-5.1) mEq/L Chloride 104 (98-107) mEq/L Carbon Dioxide 31 (21-32) mEq/L Anion Gap 11.5 (5-15) BUN 35 H (7-18) mg/dL Creatinine 1.5 H (0.7-1.3) mg/dL Est Cr Clr Drug Dosing 34.47 mL/min Estimated GFR (MDRD) 44 (>60) mL/min BUN/Creatinine Ratio 23.3 H (14-18) Glucose 142 H (83-115) mg/dL Calcium 9.2 (8.5-10.1) mg/dL Troponin I 9.209 H* (0.00-0.056) ng/mL NT-Pro-B Natriuret Pep 4123 H (0-450) pg/mL Result Diagrams: 10/04/20 07:30 10/04/20 07:30 Sepsis Event Note - Evaluation Sepsis Screening Result: No Definite Risk - Focused Exam Vital Signs: Vital Signs Temp Pulse Resp BP Pulse Ox 10/04/20 10:04 36.1 C 98 24 H 94/61 96 10/04/20 07:48 36.1 C 76 25 H 59/41 L 98 10/04/20 06:00 36.4 C 77 23 H 114/55 L 98 10/04/20 02:25 36.2 C 26 H 104/53 L 98 - Problem List & Annotations (1) Anemia SNOMED Code(s): 811696931 Code(s): D64.9 - ANEMIA, UNSPECIFIED Status: Acute Priority: High Current Visit: Yes Onset Date: ~10/02/20 Qualifiers: Anemia type: iron deficiency Iron deficiency anemia type: chronic blood loss Qualified Code(s): D50.0 - Iron deficiency anemia secondary to blood loss (chronic) Annotation/Comment:: hgn 6.6 to 11. now has evidence of worsening chf despite anemia correction . g.i bleed suspected but no melana noted. chronic ansids use for oa likely cause / check hemmoccults stool softners ordered. (2) CHF (congestive heart failure) SNOMED Code(s): 76789960 Code(s): I50.9 - HEART FAILURE, UNSPECIFIED Status: Acute Priority: High Current Visit: Yes Onset Date: ~10/02/20 Qualifiers: Heart failure type: combined systolic and diastolic Heart failure chronicity: acute on chronic Qualified Code(s): I50.43 - Acute on chronic combined systolic (congestive) and diastolic (congestive) heart failure Annotation/Comment:: doing better today and will hold lasix as uo good and b.p low . restart oral meds and recheck ntbnp pending but diuresis has helped . prognosis and issues reviewed with whole family present and he is critical and has weakend heart and rt heart failure and copd but there is hope for full recovery . (3) Chronic obstructive pulmonary disease (COPD) SNOMED Code(s): 91860019 Code(s): J44.9 - CHRONIC OBSTRUCTIVE PULMONARY DISEASE, UNSPECIFIED Status: Acute Priority: High Current Visit: Yes Onset Date: ~10/02/20 Qualifiers: COPD type: emphysema Emphysema type: panlobular Qualified Code(s): J43.1 - Panlobular emphysema Annotation/Comment:: doing better . cont nebs and do incentive measures and or flutter valve treatments with cpt. try to get up to chair . family aware he is doing better . (4) Chronic renal insufficiency, stage III (moderate) SNOMED Code(s): 904906323 Code(s): N18.30 - CHRONIC KIDNEY DISEASE, STAGE 3 UNSPECIFIED Status: Acute Priority: Medium Current Visit: Yes Onset Date: ~10/02/20 Qualifiers: Chronic kidney disease stage 3 subtype: stage 3b (GFR 30-44) Qualified Code(s): N18.32 - Chronic kidney disease, stage 3b Annotation/Comment:: creat up to 1.5 and clinic notes note occasional lasix dependence. prob. more form cor pulm standpoint than actual renal failure. monitor response to lasix . (5) Elevated troponin I measurement SNOMED Code(s): 929392682 Code(s): R77.8 - OTHER SPECIFIED ABNORMALITIES OF PLASMA PROTEINS Status: Acute Priority: High Current Visit: Yes Onset Date: ~10/02/20 Annotation/Comment:: retic count 6 % (6) Hyperkalemia SNOMED Code(s): 61905340 Code(s): E87.5 - HYPERKALEMIA Status: Acute Priority: Low Current Visit: Yes Onset Date: ~10/03/20 Annotation/Comment:: monitoring after transfusion creatine better (7) Hypotension SNOMED Code(s): 56644787 Code(s): I95.9 - HYPOTENSION, UNSPECIFIED Status: Acute Priority: High Current Visit: Yes Onset Date: ~10/04/20 Qualifiers: Hypotension type: unspecified hypotension type Qualified Code(s): I95.9 - Hypotension, unspecified Annotation/Comment:: hypotension better after transfusion but cardiogenic failure severe. b.p s stable all afternoon diuresing well and resp status improving. b.p dropped and diuresing fairly well 100 cc hour and will monitor this am. metoprolol held . troponin dropping - Problem List Review Problem List Initiated/Reviewed/Updated: Yes - My Orders Last 24 Hours: My Active Orders 10/03/20 11:07 Atropine 1% [Atropine 1% Ophth Soln] 0 ml SL Q2H PRN 10/03/20 11:50 Morphine 2 mg IVPUSH Q1H PRN 10/03/20 Dinner Regular Diet [DIET] 10/03/20 20:28 Vital Signs [RC] 03,09,,10/03/20 20:30 Metoprolol Succinate [Toprol XL] 25 mg PO DAILY 10/04/20 09:00 Aspirin [Halfprin] 81 mg PO DAILY 10/04/20 09:25 Patient Status [ADT] Routine 10/04/20 09:29 RT Aerosol Therapy [RC] ASDIRECTED 10/04/20 09:54 Antiembolic Devices [RC] SCD [Sequential Compression Device] [OM.PC] Routine 10/04/20 09:54 Code Status [Resuscitation Status] Routine 10/04/20 10:00 Albuterol/Ipratropium [DuoNeb 3.0-0.5 MG/3 ML] 3 ml NEB Q6HRRT 10/04/20 21:00 guaiFENesin [Mucinex] 600 mg PO BID 10/05/20 09:00 Roflumilast 500 mcg PO DAILY - Assessment Assessment:: 10/04/20 afebrile b.p low thisa am and metoprolol held / stable night slept well/ c/o of aches in feet and hands and al over,but mild. resp sats this am stable 90-94%/ decreased bs at bases no wheezing cvs regular irreg. rythum 70-90 no jvd// trace edema legs. no calf tenderness. abd benign eating breakfast well . neuro mild confusion but ao and knows all family present . trop 9 this am / rest pending . cbc hgn 10.7 creat. stable 1.4. chest xray chronic vasc congestion but improved chf appearance no infiltrates// enlarged heart unchanged . assess: 1)chf : improved but b.p dropping with diuresis.. pvcs cont. 2)cad : trop decreasing and cv status not stable yet (hypotension) but improved breathing and appetite/alertness and interaction . 3) anemia on pantiprozole and to unstable for endoscopy but check stool hemmoccults no brbr or melana noted. constipation being addressed . 4) nutritional status improving / t.p stable today creat. 1.5 . eating well with suppliments 5)oa/aches will try to get up to chair today if able to tolerate. no spec joints today. no signs gout but check uric acid. 6) renal insuff stable daily lasix likely if b.p will handle it. 7)copd restarted nebs x4 daily with cpt treatments . pretty severe emphysema and cor pulm clinically but improved sats and o2 at 1 liters - Plan Plan:: I have seen and evaluated the patient independently of JADIEL Madden, and have reviewed and agree with the orders and plan of care as outlined by her. I have discussed the case with her. I have discussed the poor prognosis of the patient with his son. I had a long discussion with regards to comfort measures. I also suggested that family members come in. Patient's son says that he is going to talk to other family members before transitioning to comfort care measures only. Please see orders. 10/03/20 afebrile hypotension improved without ionotrops but pulm edema now worsening and family aware. rattly resp with crackles. mirna on rt / chest xray increased pulm edema . cor pvcs multifocal with activity a nd turning. soft almost inaudible heart tones but no s3/s4 abd not taking anything sec. to decreased sensorium. gurgly resp and given atropine . neuro obtunded and responds to name . m.s edema increased and no bruising that is severe. skin i.v sight clean assess 1)cardiogenic failure and family making comfort measures if he does not start to improve. 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 very limited options given age and condition and family aware . 3) anemia acute g.i bleed on meloxicam no anticoagulation and given one dose lovenox this a.m to try to stave off ami . 4)diabetes stable. plan. lasix this am and lovenox x one. if not able to stabilize b.p discussed ionotropic drips but family thinking comfort care if his outlook is poor ( it is ) supportive care for all other aspects but hold p.o meds and support with i.v meds . boh 10/04/20 afebrile b.p low thisa am and metoprolol held / stable night slept well/ c/o of aches in feet and hands and al over,but mild. resp sats this am stable 90-94%/ decreased bs at bases no wheezing cvs regular irreg. rythum 70-90 no jvd// trace edema legs. no calf tenderness. abd benign eating breakfast well . neuro mild confusion but ao and knows all family present . trop 9 this am / rest pending . cbc hgn 10.7 creat. stable 1.4. chest xray chronic vasc congestion but improved chf appearance no infiltrates// enlarged heart unchanged . assess: 1)chf : improved but b.p dropping with diuresis.. pvcs cont. 2)cad : trop decreasing and cv status not stable yet (hypotension) but improved breathing and appetite/alertness and interaction . 3) anemia on pantiprozole and to unstable for endoscopy but check stool hemmoccults no brbr or melana noted. constipation being addressed . 4) nutritional status improving / t.p stable today creat. 1.5 . eating well with suppliments 5)oa/aches will try to get up to chair today if able to tolerate. no spec joints today. no signs gout but check uric acid. 6) renal insuff stable daily lasix likely if b.p will handle it. 7)copd restarted nebs x4 daily with cpt treatments . pretty severe emphysema and cor pulm clinically but improved sats and o2 at 1 liters boh
[2020-10-04] MEDS: LORazepam 2 MG/ML SDV IVPUSH PRN ×2 (12:26→19:11)
[2020-10-04] MEDS: diphenhydrAMINE 50 MG/ML SDV IVPUSH PRN (14:20)
[2020-10-05] MEDS: guaiFENesin 600 MG Tab.ER PO SCH ×3 (00:35→21:43)
[2020-10-05] MEDS ORDERED: Furosemide 20 MG/2 ML VIAL IVPUSH ONE (00:52)
[2020-10-05] MEDS: Atropine 1% Ophth Soln 5 ML BOTTLE SL PRN (01:07)
[2020-10-05] MEDS: LORazepam 2 MG/ML SDV IVPUSH PRN ×2 (01:22→21:44)
[2020-10-05] MEDS: Albuterol/Ipratropium 3.0-0.5 MG/3 ML Neb Soln NEB SCH ×3 (03:21→15:08)
[2020-10-05] MEDS: Metoprolol Succinate 25 MG Tab.ER PO SCH (09:44)
[2020-10-05] MEDS: cefTRIAXone 2 GM in Sodium Chloride 0.9% 100 ML IV SCH (09:45)
[2020-10-05] MEDS: Aspirin 81 MG Tab.EC PO SCH (09:45)
[2020-10-05] MEDS: Pantoprazole 40 MG Vial IVPUSH SCH (09:45)
[2020-10-05] MEDS: metroNIDAZOLE/Normal Saline 500 MG in Premix Bag 1 BAG IV SCH ×3 (09:46→21:44)
[2020-10-05] MEDS: ROFLUMILAST 500 MCG PO SCH (09:46)
--- NOTE | 2020-10-05 11:54 | CR ---
Chest: Portable view of the chest was obtained. Comparison: Prior chest x-ray of 10/04/20. Both lung lau are similar to prior study. Heart is enlarged. Previous sternotomy is noted. No acute osseous abnormality is appreciated. Impression: 1. Stable chest x-ray from prior exam. 2. Nothing acute is appreciated. Diagnostic code #2
[2020-10-05] MEDS ORDERED: traMADol 50 MG Tab PO PRN (16:02)
[2020-10-05] MEDS ORDERED: Metoprolol Succinate 25 MG Tab.ER PO SCH (16:15)
--- NOTE | 2020-10-05 16:19 | PCM.PN ---
- General Info Date of Service: 10/05/20 Admission Dx/Problem (Free Text): Admission Diagnosis/Problem Admission Diagnosis/Problem Anemia 10/02/2020: 89 year old male who is a current resident at [facility] presented to the ED feeling weak and dyspneic on minimal exertion for several weeks if not months He was seen by pulmonology in [place] on Monday this week September 28 and told that everything looked okay as far as his lungs were going. He seen cardiology service about 2 weeks ago and was told no changes to medications either. Patient states he just simply does not have any energy or is easily fatigued on minimal exertion such as walking 15 feet. He has a chronic cough usually white sputum. He had both of his COVID-19 vaccinations without andrea COVID-19 illness last year. He does appear quite pale in appearance. He denies any obvious blood in his urine or stool. To his knowledge she has never required a blood transfusion. However he has had open heart surgery in the past with triple bypass which may have required blood transfusion. Patient has had numerous coronary artery stents in place and bypass on 2 separate occasions the last time being about 5 years ago. He has chronic lower extremity edema. He denies any recent problems with pneumonia. Denies any recent problems with central chest pain He was transferred from the ED and admitted to the floor 10/03/2020: Day 1 with not much improvement with transfusion Afebrile Increased pulmonary edema Rattly respirations with crackles especially on right side cor PVCs multifocal with activity and turning Soft almost inaudible heart tones but no s3/s4 ABD not taking anything secondary to decreased sensorium Gurgly respirations and given atropine Neuro obtunded and responds to name MS edema increased and no bruising that is severe Skin IV sight clean Assess: 1)Cardiogenic failure and family making comfort measures if he does not start to improve 2)COPD right failure and chronic cor pulmonale and O2 use at 3 liters with persistent tachycardia despite transfusion with acute CHF secondary to cardiac ischemic episodes and CAD as well troponin elevated 14 3)Hypotension improved without inotropes but pulmonary edema now worsening and family aware as well as very limited options given age and condition 4)Anemia with acute GI bleed and on meloxicam with no anticoagulation and given one dose of Lovenox this AM to try to stay off ami 5)Diabetes is stable Plan: 1)Chest x-ray 2)Lasix this AM and Lovenox once and if not able to stabilize blood pressure discussed ionotropic drips but family thinking comfort care if his outlook is poor, which I am thinking it is 3)Supportive care for all other aspects but hold PO medications and support with IV medications. boh 10/04/2020: Afebrile Blood pressure low this AM and metoprolol held Stable during the night and slept well Complaints of aches in feet and hands and all over, but mild Respiratory saturations this AM stable 90-94% with decreased breath sounds at bases but no wheezing Cardiovascular is regular, irregular rhythm with heart rate around 70-90 No JVD with trace edema in legs and no calf tenderness Abdomen benign and eating breakfast well Neuro mild confusion but alert and orientated and knows all family present Labs from 10/03/2020: Troponin 13.795, Hemoglobin 10.6, Creatinine stable 1.4 Chest x-ray showed chronic vascular congestion but improved CHF appearance with no infiltrates and enlarged heart is unchanged Assess: 1)CHF: improved but blood pressure dropping with diuresis and PVCs continued 2)CAD: troponin decreasing and CV status not stable yet (hypotension) but improved breathing, appetite, alertness, and interaction 3)Anemia on pantoprazole and too unstable for endoscopy but checking stool hemoccults and no bright red blood or melena noted and constipation is being addressed 4)Nutritional status is improving and eating well with supplements troponin stable today and Creatinine 1.5 5)Osteoarthritis with aches to no specific joint today and no signs of gout but will check uric acid and will try to get up out of bed and into chair today if able to tolerate 6)Renal insufficiency is stable with daily Lasix likely if blood pressure will handle it 7)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 clinically and restarted nebulizer treatments x4 daily with CPT treatments but improved saturations and O2 at 1 liter 8)Labs today: Troponin 9.209, Hemoglobin 10.9, Creatinine 1.5 boh 10/05/2020: Hypotension with worsening HF Has a cough with rhonchi sounds He is pretty weak 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 He is on regular diet and eating well Blood pressure this AM was 117/60 Heart rate running 76-108 COPD with O2 titrated from 3 Liters to 2.5 Liters this morning Labs today: Troponin 3.578, Hemoglobin 11.7, Creatinine 1.9 Start IV ceftriaxone sodium and metronidazole due to pneumonia and aspiration concerns Discussed trying physical and occupational therapy due to weakness Discussed getting labs and chest x-ray repeated Discussed possible penitentiary status instead of going back to [facility] and placement for when he is discharged Subjective Update: 10/05/2020: Hypotension with worsening HF Has a cough with rhonchi sounds He is pretty weak 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 He is on regular diet and eating well Blood pressure this AM was 117/60 Heart rate running 76-108 COPD with O2 titrated from 3 Liters to 2.5 Liters this morning Labs today: Troponin 3.578, Hemoglobin 11.7, Creatinine 1.9 Start IV ceftriaxone sodium and metronidazole due to pneumonia and aspiration concerns Discussed trying physical and occupational therapy due to weakness Discussed getting labs and chest x-ray repeated Discussed possible penitentiary status instead of going back to [facility] and placement for when he is discharged Functional Status: Reports: Pain Controlled - Review of Systems General: Reports: Weakness HEENT: Reports: No Symptoms Pulmonary: Reports: Cough Cardiovascular: Reports: No Symptoms Gastrointestinal: Reports: No Symptoms Genitourinary: Reports: No Symptoms Musculoskeletal: Reports: No Symptoms Skin: Reports: No Symptoms Neurological: Reports: No Symptoms Psychiatric: Reports: No Symptoms - Patient Data Vitals - Most Recent: Last Vital Signs Temp 97.8 F 10/05/20 07:43 Pulse 110 H 10/05/20 09:44 Resp 18 10/05/20 07:43 BP 113/71 10/05/20 09:44 Pulse Ox 99 10/05/20 08:00 Weight - Most Recent: 83.416 kg I&O - Last 24 Hours: Intake & Output 10/04/20 10/05/20 10/05/20 22:59 06:59 14:59 Intake Total 240 Output Total 510 1050 250 Balance -270 -1050 -250 Lab Results Last 24 Hours: Laboratory Results - last 24 hr 10/05/20 10/05/20 10/05/20 Range/Units 09:20 09:20 09:20 WBC 16.32 H (4.23-9.07) K/mm3 RBC 3.89 L (4.63-6.08) M/mm3 Hgb 11.7 L (13.7-17.5) gm/dl Hct 37.7 L (40.1-51.0) % MCV 96.9 H (79.0-92.2) fl MCH 30.1 (25.7-32.2) pg MCHC 31.0 L (32.2-35.5) g/dl RDW Std Deviation 53.7 H (35.1-43.9) fL Plt Count 136 L (163-337) K/mm3 MPV 10.9 (9.4-12.3) fl Neut % (Auto) 80.5 H (34.0-67.9) % Lymph % (Auto) 8.1 L (21.8-53.1) % [place] % (Auto) 10.7 (5.3-12.2) % Eos % (Auto) 0.3 L (0.8-7.0) Baso % (Auto) 0.1 (0.1-1.2) % Neut # (Auto) 13.14 H (1.78-5.38) K/mm3 Lymph # (Auto) 1.32 (1.32-3.57) K/mm3 [place] # (Auto) 1.75 H (0.30-0.82) K/mm3 Eos # (Auto) 0.05 (0.04-0.54) K/mm3 Baso # (Auto) 0.01 (0.01-0.08) K/mm3 Manual Slide Review Abnormal smear Sodium 138 (136-145) mEq/L Potassium 4.2 (3.5-5.1) mEq/L Chloride 98 (98-107) mEq/L Carbon Dioxide 31 (21-32) mEq/L Anion Gap 13.2 (5-15) BUN 51 H (7-18) mg/dL Creatinine 1.9 H (0.7-1.3) mg/dL Est Cr Clr Drug Dosing 27.21 mL/min Estimated GFR (MDRD) 34 (>60) mL/min BUN/Creatinine Ratio 26.8 H (14-18) Glucose 253 H (83-115) mg/dL Calcium 8.8 (8.5-10.1) mg/dL Total Bilirubin 0.7 (0.2-1.0) mg/dL AST 25 (15-37) U/L ALT 26 (16-63) U/L Alkaline Phosphatase 119 H (46-116) U/L Troponin I 3.578 H* (0.00-0.056) ng/mL NT-Pro-B Natriuret Pep 4054 H (0-450) pg/mL Total Protein 6.9 (6.4-8.2) g/dl Albumin 2.7 L (3.4-5.0) g/dl Globulin 4.2 gm/dL Albumin/Globulin Ratio 0.6 L (1-2) Med Orders - Current: Current Medications Acetaminophen (Acetaminophen 325 Mg Tab) 650 mg PO Q4H PRN PRN Reason: Pain (Mild 1-3)/fever Albuterol/Ipratropium (Albuterol/Ipratropium 3.0-0.5 Mg/3 Ml Neb Soln) 3 ml NEB Q6HRRT [facility] Last Admin: 10/05/20 08:00 Dose: 3 ml Documented by: Artificial Tears (Carboxymethylcellulose Sodium 1% Ophth Gel 15 Ml Bottle) 0 ml EYEBOTH ASDIRECTED PRN PRN Reason: Dry Eyes Last Admin: 10/04/20 08:00 Dose: 15 ml Documented by: Aspirin (Aspirin 81 Mg Tab.Ec) 81 mg PO DAILY [facility] Last Admin: 10/05/20 09:45 Dose: 81 mg Documented by: Atropine Sulfate (Atropine 1% Ophth Soln 5 Ml Bottle) 0 ml SL Q2H PRN PRN Reason: secretions Last Admin: 10/05/20 01:07 Dose: 5 ml Documented by: Diphenhydramine HCl (Diphenhydramine 50 Mg/Ml Sdv) 12.5 mg IVPUSH Q8H PRN PRN Reason: Anxiety Last Admin: 10/04/20 14:20 Dose: 12.5 mg Documented by: Docusate Sodium (Docusate Sodium 100 Mg Cap) 100 mg PO BID PRN PRN Reason: Constipation Guaifenesin (Guaifenesin 600 Mg Tab.Er) 600 mg PO BID [facility] Last Admin: 10/05/20 09:45 Dose: 600 mg Documented by: Ceftriaxone Sodium 2 gm/ (Sodium Chloride) 100 mls @ 200 mls/hr IV Q24H [facility] Last Admin: 10/05/20 09:45 Dose: 200 mls/hr Documented by: Metronidazole 500 mg/ Premix 100 mls @ 100 mls/hr IV Q6H [facility] Last Admin: 10/05/20 09:46 Dose: 100 mls/hr Documented by: Lorazepam (Lorazepam 2 Mg/Ml Sdv) 0.25 mg IVPUSH Q4H PRN PRN Reason: Anxiety Last Admin: 10/05/20 01:22 Dose: 0.25 mg Documented by: Metoclopramide HCl (Metoclopramide 10 Mg/2 Ml Sdv) 5 mg IVPUSH Q4H PRN PRN Reason: Nausea/Vomiting Metoprolol Succinate (Metoprolol Succinate 25 Mg Tab.Er) 25 mg PO DAILY [facility] Last Admin: 10/05/20 09:44 Dose: 25 mg Documented by: Morphine Sulfate (Morphine 2 Mg/Ml Syringe) 2 mg IVPUSH Q1H PRN PRN Reason: Pain Last Admin: 10/04/20 15:37 Dose: 2 mg Documented by: Oxycodone HCl (Oxycodone 5 Mg Tab) 5 mg PO Q4H PRN PRN Reason: Pain (moderate 4-6) Pantoprazole Sodium (Pantoprazole 40 Mg Vial) 20 mg IVPUSH DAILY [facility] Last Admin: 10/05/20 09:45 Dose: 20 mg Documented by: Roflumilast 500 Mcg Tablet Patient' s Own Med 0 each PO DAILY [facility] Last Admin: 10/05/20 09:46 Dose: Not Given Documented by: Discontinued Medications Aspirin (Aspirin 81 Mg Tab.Chew) 324 mg PO ONETIME ONE Stop: 10/02/20 13:17 Last Admin: 10/02/20 13:27 Dose: 324 mg Documented by: Atropine Sulfate (Atropine 1% Ophth Soln 5 Ml Bottle) 0 ml SL Q2H [facility] Diphenhydramine HCl (Diphenhydramine 50 Mg/Ml Sdv) Confirm Administered Dose 50 mg .ROUTE .STK-MED ONE Stop: 10/02/20 14:52 Last Admin: 10/02/20 14:56 Dose: Not Given Documented by: Diphenhydramine HCl (Diphenhydramine 50 Mg/Ml Sdv) 12.5 mg IVPUSH ONETIME ONE Stop: 10/02/20 14:53 Last Admin: 10/02/20 14:54 Dose: 12.5 mg Documented by: Furosemide (Furosemide 40 Mg/4 Ml Vial) 40 mg IVPUSH NOW ONE Stop: 10/02/20 13:43 Last Admin: 10/02/20 14:55 Dose: 40 mg Documented by: Furosemide (Furosemide 20 Mg/2 Ml Vial) 20 mg IVPUSH NOW ONE Stop: 10/03/20 08:11 Last Admin: 10/03/20 08:19 Dose: 20 mg Documented by: Furosemide (Furosemide 20 Mg/2 Ml Vial) 20 mg IVPUSH ONETIME ONE Stop: 10/04/20 06:01 Last Admin: 10/04/20 06:48 Dose: 20 mg Documented by: Furosemide (Furosemide 20 Mg/2 Ml Vial) 20 mg IVPUSH ONETIME ONE Stop: 10/04/20 15:12 Last Admin: 10/04/20 15:16 Dose: 20 mg Documented by: Furosemide (Furosemide 20 Mg/2 Ml Vial) 20 mg IVPUSH ONETIME ONE Stop: 10/05/20 00:53 Last Admin: 10/05/20 01:02 Dose: 20 mg Documented by: Sodium Chloride (Normal Saline) 1,000 mls @ 75 mls/hr IV ASDIRECTED [facility]ARG[facility] Last Admin: 10/02/20 12:48 Dose: 75 mls/hr Documented by: Sodium Chloride (Normal Saline) 250 mls @ 250 mls/hr IV ASDIRECTED [facility] Last Admin: 10/02/20 15:51 Dose: 250 mls/hr Documented by: Sodium Chloride (Normal Saline) Confirm Administered Dose 250 mls @ as directed .ROUTE .STK-MED ONE Stop: 10/02/20 15:46 Last Admin: 10/02/20 15:51 Dose: Not Given Documented by: Sodium Chloride (Normal Saline) 250 mls @ 250 mls/hr IV ASDIRECTED [facility]ARGOT Lorazepam (Lorazepam 2 Mg/Ml Sdv) 0.25 mg IV ONETIME ONE Stop: 10/02/20 13:12 Last Admin: 10/02/20 13:27 Dose: 0.25 mg Documented by: Metoclopramide HCl (Metoclopramide 10 Mg/2 Ml Sdv) 7.5 mg IVPUSH ONETIME ONE Stop: 10/02/20 13:11 Last Admin: 10/02/20 13:27 Dose: 7.5 mg Documented by: Non-Formulary Medication (Oxygen) 3 liter EMELY ASDIRECTED PRN PRN Reason: low oxygen saturation Pantoprazole Sodium (Pantoprazole 40 Mg Vial) 40 mg IVPUSH DAILY [facility] Last Admin: 10/03/20 08:19 Dose: 40 mg Documented by: - Exam Quality Assessment: Supplemental Oxygen (2.5 Liters) General: Alert, Oriented HEENT: Pupils Equal, Pupils Reactive, EOMI, Mucous Membr. Moist/[place] Neck: Supple Lungs: Rhonchi, Other (coughing) Cardiovascular: Regular Rate, Regular Rhythm GI/Abdominal Exam: Normal Bowel Sounds, Soft, Non-Tender, No Organomegaly, No Distention, No Abnormal Bruit, No Mass, Pelvis Stable (Male) Exam: No Hernia, Normal Inspection, Normal Prostate, Circumcised Back Exam: Normal Inspection, Full Range of Motion Extremities: Normal Inspection, Normal Range of Motion, Non-Tender, No Pedal Edema, Normal Capillary Refill Skin: Warm, Dry, Intact Wound/Incisions: Healing Well Neurological: No New Focal Deficit Psy/Mental Status: Alert, Normal Affect, Normal Mood - Patient Data Lab Results Last 24 hrs: Laboratory Results - last 24 hr 10/05/20 10/05/20 10/05/20 Range/Units 09:20 09:20 09:20 WBC 16.32 H (4.23-9.07) K/mm3 RBC 3.89 L (4.63-6.08) M/mm3 Hgb 11.7 L (13.7-17.5) gm/dl Hct 37.7 L (40.1-51.0) % MCV 96.9 H (79.0-92.2) fl MCH 30.1 (25.7-32.2) pg MCHC 31.0 L (32.2-35.5) g/dl RDW Std Deviation 53.7 H (35.1-43.9) fL Plt Count 136 L (163-337) K/mm3 MPV 10.9 (9.4-12.3) fl Neut % (Auto) 80.5 H (34.0-67.9) % Lymph % (Auto) 8.1 L (21.8-53.1) % [place] % (Auto) 10.7 (5.3-12.2) % Eos % (Auto) 0.3 L (0.8-7.0) Baso % (Auto) 0.1 (0.1-1.2) % Neut # (Auto) 13.14 H (1.78-5.38) K/mm3 Lymph # (Auto) 1.32 (1.32-3.57) K/mm3 [place] # (Auto) 1.75 H (0.30-0.82) K/mm3 Eos # (Auto) 0.05 (0.04-0.54) K/mm3 Baso # (Auto) 0.01 (0.01-0.08) K/mm3 Manual Slide Review Abnormal smear Sodium 138 (136-145) mEq/L Potassium 4.2 (3.5-5.1) mEq/L Chloride 98 (98-107) mEq/L Carbon Dioxide 31 (21-32) mEq/L Anion Gap 13.2 (5-15) BUN 51 H (7-18) mg/dL Creatinine 1.9 H (0.7-1.3) mg/dL Est Cr Clr Drug Dosing 27.21 mL/min Estimated GFR (MDRD) 34 (>60) mL/min BUN/Creatinine Ratio 26.8 H (14-18) Glucose 253 H (83-115) mg/dL Calcium 8.8 (8.5-10.1) mg/dL Total Bilirubin 0.7 (0.2-1.0) mg/dL AST 25 (15-37) U/L ALT 26 (16-63) U/L Alkaline Phosphatase 119 H (46-116) U/L Troponin I 3.578 H* (0.00-0.056) ng/mL NT-Pro-B Natriuret Pep 4054 H (0-450) pg/mL Total Protein 6.9 (6.4-8.2) g/dl Albumin 2.7 L (3.4-5.0) g/dl Globulin 4.2 gm/dL Albumin/Globulin Ratio 0.6 L (1-2) Result Diagrams: 10/05/20 09:20 10/05/20 09:20 Sepsis Event Note - Evaluation Sepsis Screening Result: No Definite Risk - Focused Exam Vital Signs: Vital Signs Temp Pulse Pulse Resp BP BP Pulse Ox 10/05/20 09:44 110 H 113/71 10/05/20 08:00 10/05/20 07:43 97.8 F 105 H 18 110/60 99 10/05/20 03:22 10/05/20 03:00 98.6 F 108 H 20 117/60 100 Pulse Ox 10/05/20 09:44 10/05/20 08:00 99 10/05/20 07:43 10/05/20 03:22 100 10/05/20 03:00 - Problem List & Annotations (1) Tachycardia SNOMED Code(s): 1032576 Code(s): R00.0 - TACHYCARDIA, UNSPECIFIED Status: Acute Priority: Medium Current Visit: Yes Onset Date: ~10/05/20 Annotation/Comment:: restart low dose beta tin but copd may limit dosing. increased nebs ad consider medrol x 5 days if suspect respsymptoms worsening. chest xray clear of infiltratews andchf resolved. discussed with family (2) CHF (congestive heart failure) SNOMED Code(s): 50952804 Code(s): I50.9 - HEART FAILURE, UNSPECIFIED Status: Acute Priority: High Current Visit: Yes Onset Date: ~10/02/20 Qualifiers: Heart failure type: combined systolic and diastolic Heart failure chronicity: acute on chronic Qualified Code(s): I50.43 - Acute on chronic combined systolic (congestive) and diastolic (congestive) heart failure Annotation/Comment:: doing better today and will hold lasix as uo good and b.p low . restart oral meds and recheck ntbnp pending but diuresis has helped . prognosis and issues reviewed with whole family present and he is critical and has weakend heart and rt heart failure and copd but there is hope for full recovery . (3) Chronic obstructive pulmonary disease (COPD) SNOMED Code(s): 32001502 Code(s): J44.9 - CHRONIC OBSTRUCTIVE PULMONARY DISEASE, UNSPECIFIED Status: Acute Priority: High Current Visit: Yes Onset Date: ~10/02/20 Qualifiers: COPD type: emphysema Emphysema type: panlobular Qualified Code(s): J43.1 - Panlobular emphysema Annotation/Comment:: doing better . cont nebs and do incentive measures and or flutter valve treatments with cpt. try to get up to chair . family aware he is doing better . (4) Chronic renal insufficiency, stage III (moderate) SNOMED Code(s): 674994105 Code(s): N18.30 - CHRONIC KIDNEY DISEASE, STAGE 3 UNSPECIFIED Status: Acute Priority: Medium Current Visit: Yes Onset Date: ~10/02/20 Qualifiers: Chronic kidney disease stage 3 subtype: stage 3b (GFR 30-44) Qualified Code(s): N18.32 - Chronic kidney disease, stage 3b Annotation/Comment:: creat up to 1.5 and clinic notes note occasional lasix dependence. prob. more form cor pulm standpoint than actual renal failure. monitor response to lasix . 10/05 restart oral meds lasix and metoprolol/losartan (5) Elevated troponin I measurement SNOMED Code(s): 040151818 Code(s): R77.8 - OTHER SPECIFIED ABNORMALITIES OF PLASMA PROTEINS Status: Acute Priority: High Current Visit: Yes Onset Date: ~10/02/20 Annotation/Comment:: retic count 6 % (6) Hypotension SNOMED Code(s): 39084000 Code(s): I95.9 - HYPOTENSION, UNSPECIFIED Status: Acute Priority: Low Current Visit: Yes Onset Date: ~10/04/20 Qualifiers: Hypotension type: unspecified hypotension type Qualified Code(s): I95.9 - Hypotension, unspecified Annotation/Comment:: hypotension better after transfusion but cardiogenic failure severe. b.p s stable all afternoon diuresing well and resp status improving. b.p dropped and diuresing fairly well 100 cc hour and will monitor this am. metoprolol held . troponin dropping . b.p stable but increasing tachicardia and xray reveals no infiltrates but started rocephin and metronidizole for possible pneumonia . (7) Diabetes 1.5, managed as type 1 SNOMED Code(s): 100627981 Code(s): E13.9 - OTHER SPECIFIED DIABETES MELLITUS WITHOUT COMPLICATIONS Status: Acute Priority: High Current Visit: Yes Onset Date: ~10/03/20 Annotation/Comment:: blood sugars high and not responding to sliding scale andneeds to restart lantis . consider restart oral meds as well . monitor b.s 4 x daily - Problem List Review Problem List Initiated/Reviewed/Updated: Yes - Assessment Assessment:: 10/05/2020: Hypotension with worsening HF Has a cough with rhonchi sounds He is pretty weak 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 He is on regular diet and eating well Blood pressure this AM was 117/60 Heart rate running 76-108 COPD with O2 titrated from 3 Liters to 2.5 Liters this morning Labs today: Troponin 3.578, Hemoglobin 11.7, Creatinine 1.9 Start IV ceftriaxone sodium and metronidazole due to pneumonia and aspiration concerns Discussed trying physical and occupational therapy due to weakness Discussed getting labs and chest x-ray repeated Discussed possible penitentiary status instead of going back to [facility] and placement for when he is discharged - Plan Plan:: 10/02/2020: 89 year old male who is a current resident at [facility] presented to the ED feeling weak and dyspneic on minimal exertion for several weeks if not months He was seen by pulmonology in [place] on Monday this week September 28 and told that everything looked okay as far as his lungs were going. He seen cardiology service about 2 weeks ago and was told no changes to medications either. Patient states he just simply does not have any energy or is easily fatigued on minimal exertion such as walking 15 feet. He has a chronic cough usually white sputum. He had both of his COVID-19 vaccinations without andrea COVID-19 illness last year. He does appear quite pale in appearance. He denies any obvious blood in his urine or stool. To his knowledge she has never required a blood transfusion. However he has had open heart surgery in the past with triple b ypass which may have required blood transfusion. Patient has had numerous coronary artery stents in place and bypass on 2 separate occasions the last time being about 5 years ago. He has chronic lower extremity edema. He denies any recent problems with pneumonia. Denies any recent problems with central chest pain He was transferred from the ED and admitted to the floor 10/03/2020: Day 1 with not much improvement with transfusion Afebrile Increased pulmonary edema Rattly respirations with crackles especially on right side cor PVCs multifocal with activity and turning Soft almost inaudible heart tones but no s3/s4 ABD not taking anything secondary to decreased sensorium Gurgly respirations and given atropine Neuro obtunded and responds to name MS edema increased and no bruising that is severe Skin IV sight clean Assess: 1)Cardiogenic failure and family making comfort measures if he does not start to improve 2)COPD right failure and chronic cor pulmonale and O2 use at 3 liters with persistent tachycardia despite transfusion with acute CHF secondary to cardiac ischemic episodes and CAD as well troponin elevated 14 3)Hypotension improved without inotropes but pulmonary edema now worsening and family aware as well as very limited options given age and condition 4)Anemia with acute GI bleed and on meloxicam with no anticoagulation and given one dose of Lovenox this AM to try to stay off ami 5)Diabetes is stable Plan: 1)Chest x-ray 2)Lasix this AM and Lovenox once and if not able to stabilize blood pressure discussed ionotropic drips but family thinking comfort care if his outlook is poor, which I am thinking it is 3)Supportive care for all other aspects but hold PO medications and support with IV medications. boh 10/04/2020: Afebrile Blood pressure low this AM and metoprolol held Stable during the night and slept well Complaints of aches in feet and hands and all over, but mild Respiratory saturations this AM stable 90-94% with decreased breath sounds at bases but no wheezing Cardiovascular is regular, irregular rhythm with heart rate around 70-90 No JVD with trace edema in legs and no calf tenderness Abdomen benign and eating breakfast well Neuro mild confusion but alert and orientated and knows all family present Labs from 10/03/2020: Troponin 13.795, Hemoglobin 10.6, Creatinine stable 1.4 Chest x-ray showed chronic vascular congestion but improved CHF appearance with no infiltrates and enlarged heart is unchanged Assess: 1)CHF: improved but blood pressure dropping with diuresis and PVCs continued 2)CAD: troponin decreasing and CV status not stable yet (hypotension) but improved breathing, appetite, alertness, and interaction 3)Anemia on pantoprazole and too unstable for endoscopy but checking stool hemoccults and no bright red blood or melena noted and constipation is being addressed 4)Nutritional status is improving and eating well with supplements troponin stable today and Creatinine 1.5 5)Osteoarthritis with aches to no specific joint today and no signs of gout but will check uric acid and will try to get up out of bed and into chair today if able to tolerate 6)Renal insufficiency is stable with daily Lasix likely if blood pressure will handle it 7)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 clinically and restarted nebulizer treatments x4 daily with CPT treatments but improved saturations and O2 at 1 liter 8)Labs today: Troponin 9.209, Hemoglobin 10.9, Creatinine 1.5 boh 10/05/2020: Hypotension with worsening HF Has a cough with rhonchi sounds He is pretty weak 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 He is on regular diet and eating well Blood pressure this AM was 117/60 Heart rate running 76-108 COPD with O2 titrated from 3 Liters to 2.5 Liters this morning Labs today: Troponin 3.578, Hemoglobin 11.7, Creatinine 1.9 Start IV ceftriaxone sodium and metronidazole due to pneumonia and aspiration c oncerns Discussed trying physical and occupational therapy due to weakness Discussed getting labs and chest x-ray repeated Discussed possible penitentiary status instead of going back to [facility] and placement for when he is discharged
[2020-10-05] MEDS ORDERED: Levalbuterol HCl 1.25 MG/3 ML Neb NEB SCH (17:00)
[2020-10-05] MEDS: Magnesium Oxide 400 MG Tab PO SCH ×2 (17:54→21:40)
[2020-10-05] MEDS: Furosemide 20 MG Tab PO SCH (17:54)
[2020-10-05] MEDS: Levalbuterol HCl 1.25 MG/3 ML Neb NEB SCH (20:23)
[2020-10-05] MEDS ORDERED: Losartan 25 MG Tab PO SCH (21:00)
[2020-10-05] MEDS: Insulin Glarg,Human.Rec.Analog 100 Unit/ML SUBCUT SCH (21:39)
[2020-10-05] MEDS: Carboxymethylcellulose Sodium 1% Ophth Gel 15 ML Bottle EYEBOTH SCH (21:43)
[2020-10-05] MEDS: Melatonin 3 MG Tab PO SCH (21:43)
[2020-10-05] MEDS: Simvastatin 40 MG Tab PO SCH (21:43)
[2020-10-05] MEDS: Brimonidine 0.2% Ophth Soln 5 ML Bottle EYEBOTH SCH (21:45)
[2020-10-06] MEDS: LORazepam 2 MG/ML SDV IVPUSH PRN (01:52)
[2020-10-06] MEDS: metroNIDAZOLE/Normal Saline 500 MG in Premix Bag 1 BAG IV SCH ×4 (03:07→21:46)
[2020-10-06] MEDS: Levalbuterol HCl 1.25 MG/3 ML Neb NEB SCH (05:27)
[2020-10-06] MEDS ORDERED: glipiZIDE 5 MG Tab.ER PO SCH ×2 (07:00→09:00)
[2020-10-06] MEDS ORDERED: Aspirin 81 MG Tab.EC PO SCH (09:00)
[2020-10-06] MEDS ORDERED: Ipratropium 0.02% 0.5 MG/2.5 ML Neb Soln ONE (09:14)
[2020-10-06] MEDS: Ipratropium 0.02% 0.5 MG/2.5 ML Neb Soln NEB SCH ×3 (09:24→20:41)
[2020-10-06] MEDS: Levalbuterol HCl 1.25 MG/0.5 ML Neb NEB SCH ×3 (09:24→20:41)
[2020-10-06] MEDS: Aspirin 81 MG Tab.EC PO SCH (09:38)
[2020-10-06] MEDS: guaiFENesin 600 MG Tab.ER PO SCH ×2 (09:40→21:47)
[2020-10-06] MEDS: Magnesium Oxide 400 MG Tab PO SCH ×2 (09:40→21:47)
[2020-10-06] MEDS: Sertraline 50 MG Tab PO SCH (09:41)
[2020-10-06] MEDS: Pantoprazole 40 MG Vial IVPUSH SCH (09:44)
[2020-10-06] MEDS: cefTRIAXone 2 GM in Sodium Chloride 0.9% 100 ML IV SCH (09:48)
[2020-10-06] MEDS: Carboxymethylcellulose Sodium 1% Ophth Gel 15 ML Bottle EYEBOTH SCH ×2 (09:52→21:46)
[2020-10-06] MEDS: Insulin Glarg,Human.Rec.Analog 100 Unit/ML SUBCUT SCH ×2 (09:57→22:08)
[2020-10-06] MEDS: ROFLUMILAST 500 MCG PO SCH (10:00)
[2020-10-06] MEDS: Furosemide 20 MG Tab PO SCH (10:00)
[2020-10-06] MEDS: Metoprolol Succinate 25 MG Tab.ER PO SCH (10:01)
[2020-10-06] MEDS: Brimonidine 0.2% Ophth Soln 5 ML Bottle EYEBOTH SCH ×2 (10:36→22:25)
[2020-10-06] MEDS ORDERED: Sodium Chloride 0.9% 250 ML IV SCH (17:15)
[2020-10-06] MEDS ORDERED: Sodium Chloride 0.9% 250 ML ONE (17:20)
[2020-10-06] MEDS: Simvastatin 40 MG Tab PO SCH (21:47)
[2020-10-06] MEDS: Melatonin 3 MG Tab PO SCH (21:47)
[2020-10-06] MEDS ORDERED: Sodium Chloride 0.9% 250 ML IV ONE (23:00)
[2020-10-07] MEDS: metroNIDAZOLE/Normal Saline 500 MG in Premix Bag 1 BAG IV SCH ×2 (03:56→10:34)
[2020-10-07] MEDS: Ipratropium 0.02% 0.5 MG/2.5 ML Neb Soln NEB SCH ×2 (05:33→11:06)
[2020-10-07] MEDS: Levalbuterol HCl 1.25 MG/0.5 ML Neb NEB SCH ×2 (05:33→11:06)
[2020-10-07] MEDS ORDERED: Metoprolol Succinate 25 MG Tab.ER PO SCH (09:00)
[2020-10-07] MEDS: cefTRIAXone 2 GM in Sodium Chloride 0.9% 100 ML IV SCH (09:10)
[2020-10-07] MEDS: Insulin Glarg,Human.Rec.Analog 100 Unit/ML SUBCUT SCH (09:11)
[2020-10-07] MEDS: guaiFENesin 600 MG Tab.ER PO SCH (09:12)
[2020-10-07] MEDS: Furosemide 20 MG Tab PO SCH (09:12)
[2020-10-07] MEDS: Sertraline 50 MG Tab PO SCH (09:13)
[2020-10-07] MEDS: Brimonidine 0.2% Ophth Soln 5 ML Bottle EYEBOTH SCH (09:13)
[2020-10-07] MEDS: Aspirin 81 MG Tab.EC PO SCH (09:13)
[2020-10-07] MEDS: Magnesium Oxide 400 MG Tab PO SCH (09:13)
[2020-10-07] MEDS: Carboxymethylcellulose Sodium 1% Ophth Gel 15 ML Bottle EYEBOTH SCH (09:14)
[2020-10-07] MEDS: Pantoprazole 40 MG Vial IVPUSH SCH (09:14)
[2020-10-07] MEDS: ROFLUMILAST 500 MCG PO SCH (09:14)
[2020-10-07] MEDS ORDERED: Calcium Carbonate 500 MG Tab.Chew PO PRN (10:06)
[2020-10-07] MEDS ORDERED: Nitroglycerin 0.4 MG Tab.SL SL PRN (10:06)
[2020-10-07] MEDS ORDERED: Acetaminophen 325 MG Tab PO PRN (10:06)
[2020-10-07] MEDS ORDERED: Levalbuterol HCl 1.25 MG/3 ML Neb INH PRN (10:06)
[2020-10-07 11:34] VITALS: BP 111/85; PULSE 75
[2020-10-08] MEDS ORDERED: Cephalexin 250 MG Cap PO SCH (06:00)
[2020-10-08] MEDS ORDERED: Multivitamin Tab PO SCH (09:00)
[2020-10-08] MEDS ORDERED: Multivitamins with Minerals/Folic Acid/Lutein/Zeaxanth Tab PO SCH (09:00)
[2020-10-08] MEDS ORDERED: Fluticasone Propionate Nasal Spray 16 GM Bottle NASBOTH SCH (09:00)
[2020-10-08] MEDS ORDERED: predniSONE 10 MG Tab PO SCH (09:00)
== END 2020-10-07 13:06 | disposition home or self-care (01) | DRG 291 ==
LOC: JD.ED 09:45 → UNDOADMIN 14:08 → JD.ICU 14:08 → JD.MS 10-05 19:27
PROVIDERS: ADMIT Internal Medicine; ATTEND Pediatrics
PROC: 30233N1 Transfusion of Nonautologous Red Blood Cells into Peripheral Vein, Percutaneous Approach (ICD-10-PCS; principal; 2020-10-02)
DX: I13.0 Hypertensive heart and chronic kidney disease with heart failure and stage 1 through stage 4 chronic kidney disease, or unspecified chronic kidney disease (principal); I50.33 Acute on chronic diastolic (congestive) heart failure; J18.9 Pneumonia, unspecified organism; I95.9 Hypotension, unspecified; I12.9 Hypertensive chronic kidney disease with stage 1 through stage 4 chronic kidney disease, or unspecified chronic kidney disease; N18.32 Chronic kidney disease, stage 3b; J43.1 Panlobular emphysema; D64.9 Anemia, unspecified; R77.8 Other specified abnormalities of plasma proteins; H54.7 Unspecified visual loss; H91.90 Unspecified hearing loss, unspecified ear; I25.10 Atherosclerotic heart disease of native coronary artery without angina pectoris; E78.00 Pure hypercholesterolemia, unspecified; J84.10 Pulmonary fibrosis, unspecified; Z95.5 Presence of coronary angioplasty implant and graft; N40.0 Benign prostatic hyperplasia without lower urinary tract symptoms; N40.1 Benign prostatic hyperplasia with lower urinary tract symptoms; E11.22 Type 2 diabetes mellitus with diabetic chronic kidney disease; M19.90 Unspecified osteoarthritis, unspecified site; R32 Unspecified urinary incontinence; F03.90 Unspecified dementia, unspecified severity, without behavioral disturbance, psychotic disturbance, mood disturbance, and anxiety; Z88.6 Allergy status to analgesic agent; E11.9 Type 2 diabetes mellitus without complications; Z79.82 Long term (current) use of aspirin; D50.0 Iron deficiency anemia secondary to blood loss (chronic); Z99.81 Dependence on supplemental oxygen; Z98.49 Cataract extraction status, unspecified eye; Z95.1 Presence of aortocoronary bypass graft; I25.2 Old myocardial infarction; Z88.5 Allergy status to narcotic agent; Z88.0 Allergy status to penicillin; Z91.041 Radiographic dye allergy status; Z79.4 Long term (current) use of insulin; Z79.899 Other long term (current) drug therapy; E87.5 Hyperkalemia; F41.9 Anxiety disorder, unspecified; Z20.822 Contact with and (suspected) exposure to COVID-19; J43.9 Emphysema, unspecified; I27.81 Cor pulmonale (chronic)
CPT/HCPCS: 36415; 36430; 71045; 80053; 82553; 83036; 83540; 83735; 83880; 84443; 84466; 84484; 85025; 85045; 85610; 85652; 85730; 86140; 86850; 86900; 86901; 86922; 93005; 96374; 96375; 99285; A9270; J2060; J2765; J7030; P9016; U0002; 51702; 51798; 80048; 81001; 82272; 82947; 83605; 86141; 87040; 87641; 93010; 94640; 94667; 94668; 94760; 94761; 97110-GO; 97110-GP; 97162-GP; 97167-GO; 97530-GO; 97530-GP; 97535-GO; C9113; J0696; J1200; J1815-GY; J1940; J2270; J3490; J7050; J7509; J7612-GY; J7620-GY